=== PATIENT | male | born 1960 ===

== ENCOUNTER 2018-09-20 17:47 | Inpatient (IN) | payer MEDICAID, MEDICARE ==
[2018-09-20 17:48] VITALS: BMI 29.9
--- NOTE | 2018-09-20 19:28 | C.PDOC ---
History Of Present Illness 58 year old male presents to the ED c/o SOB, chest discomfort that has been on and off for the past 3 weeks. Patient states his chest pain is intermittent, dull, aching, non radiating. Patient states he called his checker/stocker today and was told to come to the ED for evaluation. Patient able to tolerate PO, speaking in complete sentences. Patient denies fever, chills, nausea, vomit, diarrhea, rash, weakness, numbness, headache. Time Seen by Provider: 09/20/18 19:28 Chief Complaint (Nursing): Shortness Of Breath History Per: Patient History/Exam Limitations: no limitations Onset/Duration Of Symptoms: Days, Intermittent Episodes Current Symptoms Are (Timing): Still Present Initiating Event: Upper Respiratory Illness Quality: Tightness Current Respiratory Medications: See Home Med List Severity: Moderate Pain Scale Rating Of: 4 Associated Symptoms: Chest Pain. denies: Fever, Chills Reports Recently: Treated By A Physician Recent travel outside of the [place]: No Additional History Per: Patient Past Medical History Reviewed: Historical Data, Nursing Documentation, Vital Signs Vital Signs: Last Vital Signs Temp 98.3 F 09/20/18 17:56 Pulse 84 09/20/18 18:51 Resp 20 09/20/18 18:51 BP 120/58 L 09/20/18 18:51 Pulse Ox 100 09/20/18 18:51 - Medical History PMH: Anemia, Depression, Diabetes, Gastritis, HTN, Hypercholesterolemia, Hyperlipidemia, Pneumonia Denies: Chronic Kidney Disease Surgical History: CABG (2003), Coronary Stent (2010), Endoscopy Family History: States: Unknown Family Hx - Social History Hx Tobacco Use: No Hx Alcohol Use: No Hx Substance Use: No - Immunization History Hx Tetanus Toxoid Vaccination: No Hx Influenza Vaccination: Yes Hx Pneumococcal Vaccination: Yes Review Of Systems Constitutional: Negative for: Fever, Chills Eyes: Negative for: Vision Change Cardiovascular: Positive for: Chest Pain. Negative for: Palpitations Respiratory: Positive for: Shortness of Breath. Negative for: Cough, Wheezing Gastrointestinal: Negative for: Nausea, Vomiting, Abdominal Pain, Diarrhea Genitourinary: Negative for: Dysuria Musculoskeletal: Negative for: Back Pain Skin: Negative for: Rash Neurological: Negative for: Weakness, Numbness, Headache, Dizziness Psych: Negative for: Anxiety Physical Exam - Physical Exam Appears: Non-toxic Skin: Warm, Dry Head: Normacephalic Eye(s): bilateral: Normal Inspection Oral Mucosa: Moist Neck: Supple Chest: Symmetrical, Other (CABG scar) Cardiovascular: Rhythm Regular Respiratory: Rales (at the bases), No Rhonchi, No Wheezing Gastrointestinal/Abdominal: Soft, No Tenderness, Distention, No Guarding, No Rebound, Other (tympanic to percussion) Back: Normal Inspection Extremity: No Tenderness, Capillary Refill (< 2 seconds) Extremity: Bilateral: Atraumatic, Normal Color And Temperature, Normal ROM, Other (pedal edema) Pulses: Left Dorsalis Pedis: Normal, Right Dorsalis Pedis: Normal Neurological/Psych: Oriented x3, Normal Speech, Normal Cognition Gait: Steady ED Course And Treatment - Laboratory Results Result Diagrams: 09/20/18 19:53 09/20/18 19:53 ECG: Interpreted By Me, Viewed By Me ECG Rhythm: Sinus Rhythm (85), ST/T Changes (lat ischemic changes) O2 Sat by Pulse Oximetry: 100 (ON RA) Pulse Ox Interpretation: Normal - Radiology CXR: Interpreted by Me, Viewed By Me CXR Interpretation: Yes: Infiltrates (rll), Cardiomegaly, Other (? l effusion) Progress Note: Plan: - ABG. - EKG. - Labs. - CXR. - Aspirin 325 mg PO. - Duoneb. - Influenza A B. - UA. spoke with dr figueroa montano with current treatment. will see in am Disposition Discussed With : Yoshi Carranza Comment: accepted the pt on his service and took over the care at 8:54 PM Doctor Will See Patient In The: ED Counseled Patient/Family Regarding: Studies Performed, Diagnosis - Disposition Disposition: HOSPITALIZED Disposition Time: 19:28 Condition: FAIR Forms: [email or web address] ([email or web address]) - Clinical Impression Clinical Impression: Dyspnea, Chest pain, CHF (congestive heart failure), Pneumonia - Scribe Statement The provider has reviewed the documentation as recorded by the Scribe Edil Rodriguez All medical record entries made by the Scribe were at my direction and personally dictated by me. I have reviewed the chart and agree that the record accurately reflects my personal performance of the history, physical exam, medical decision making, and the department course for this patient. I have also personally directed, reviewed, and agree with the discharge instructions and disposition. Decision To Admit - Pt Status Changed To: Hospital Disposition Of: Inpatient - Admit Certification Admit to Inpatient:: After my assessment, the patient will require hospitalization for at least two midnights. This is because of the severity of symptoms shown, intensity of services needed, and/or the medical risk in this patient being treated as an outpatient. - InPatient: Physician Admission Certification: I certify that this patient requires 2 or more midnights of care for the following reason:: After my assessment, the patient will require hospitalization for at least two midnights. This is because of the severity of symptoms shown, intensity of services needed, and/or the medical risk in this patient being treated as an outpatient. - . Bed Request Type: Telemetry Admitting Physician: Yoshi Carranza Patient Diagnosis: Dyspnea, Chest pain, CHF (congestive heart failure), Pneumonia
[2018-09-20] MEDS: Albuterol-Ipratrop 3 mg / 0.5 (3 ml) UD IH SCH ×3 (19:35→20:02)
[2018-09-20] MEDS ORDERED: Albuterol-Ipratrop 3 mg / 0.5 (3 ml) UD ONE (19:55)
[2018-09-20 20:02] LABS: BASO % 0.2 % (0.0-2.0); EOS % 0.2 % (0.0-4.0); HEMOGLOBIN 11.4 g/dL (12.0-18.0); LYMPH # 0.5 K/uL (1.0-4.3); LYMPH % 3.7 % (20.0-40.0); MEAN CORPUSCULAR HEMOGLOBIN 24.6 pg (27.0-31.0); MEAN CORPUSCULAR HGB CONC 31.6 g/dL (33.0-37.0); MEAN PLATELET VOLUME 8.4 fL (7.2-11.7); MONO # 0.8 K/uL (0.0-0.8); MONO % 6.2 % (0.0-10.0); NEUT # 11.7 K/uL (1.8-7.0); NEUT % 89.7 % (50.0-75.0); PLATELET COUNT 224 K/uL (130-400); RBC 4.62 Mil/uL (4.40-5.90); RED CELL DISTRIBUTION WIDTH 17.7 % (11.5-14.5)
[2018-09-20 20:04] LABS: MEAN CELL VOLUME 77.9 fL (80.0-94.0)
[2018-09-20 20:13] LABS: ALBUMIN 3.7 g/dL (3.5-5.0); ALT/SGPT 36 U/L (21-72); AST/SGOT 35 U/L (17-59); BLOOD UREA NITROGEN 19 mg/dL (9-20); CALCIUM 8.6 mg/dl (8.6-10.4); GFR NON-AFRICAN AMERICAN > 60
[2018-09-20 20:15] LABS: ABG ALLEN TEST YES; ARTERIAL BLOOD GAS HCO3 24.1 mmol/L (21-28); ARTERIAL BLOOD GAS O2 SAT 99.5 % (95-98); ARTERIAL BLOOD GAS PCO2 42 mm/Hg (35-45); ARTERIAL BLOOD GAS PH 7.37 (7.35-7.45); ARTERIAL BLOOD GAS PO2 146 mm/Hg (80-100); ARTERIAL BLOOD GAS TCO2 25.6 mmol/L (22-28)
[2018-09-20 20:18] LABS: INR 1.2; PROTHROMBIN TIME 13.6 SECONDS (9.7-12.2)
[2018-09-20] MEDS ORDERED: Piperacillin/Tazobact 3.375 gm 100 ML IVPB STA (20:20)
[2018-09-20 20:24] LABS: B-TYPE NATRIURETIC PEPTIDE 1570 pg/mL (0-900)
[2018-09-20] MEDS ORDERED: Piperacillin/Tazobact 3.375 gm 100 ML IVPB ONE (20:30)
[2018-09-20 20:57] LABS: BANDS 4 % (0-2); LYMPHOCYTE 5 % (20-40); MONOCYTE 2 % (0-10); NEUTROPHIL 89 % (50-75); TOTAL CELLS COUNTED 100
[2018-09-20 20:58] LABS: ANISOCYTOSIS SLIGHT; HYPOCHROMIC SLIGHT; MICROCYTOSIS SLIGHT; PLATELET ESTIMATE NORMAL (NORMAL); POIKILOCYTOSIS SLIGHT; TARGET CELLS SLIGHT
[2018-09-20] MEDS ORDERED: Iodixanol 320 MG/ML 100 ML BOTTLE IV ONE (21:18)
[2018-09-20 21:59] LABS: SQUAMOUS EPITHIAL < 1 /hpf (0-5); URINE BILIRUBIN NEGATIVE (NEGATIVE); URINE BLOOD NEGATIVE (NEGATIVE); URINE CLARITY Clear (Clear); URINE COLOR Yellow (YELLOW); URINE GLUCOSE (UA) 3+ mg/dL (Normal); URINE LEUKOCYTE ESTERASE NEG Leu/uL (Negative); URINE PROTEIN NEGATIVE (NEGATIVE); URINE UROBILINOGEN NORMAL mg/dL (0.2-1.0)
--- NOTE | 2018-09-20 23:53 | CP.PCM.HP ---
<Noe Bonilla - Last Filed: 09/21/18 04:38> History of Present Illness - History of Present Illness History of Present Illness: H&P note for Dr Carranza service cc: Shortness of breath HPI: Patient is a 58 year old [place] Male with pmhx of DM, PVD, Hyperlipidemia, angina, HTN, gastritis that came to the ED for shortness of breath that has been happening for the past 2-3 weeks. Patient was told by his stitch rubber to come to the ER. Patient is complianing of productive cough, with grayish phlegm for the past 3 days. Patient states having previous difficulting walking a block, but in the past 3 weeks it has gotten worst. Admits to achy, nonradiating chest pain. Patient complains of leg swelling and feeling dizziness at times. Patient denies fever, chills, nausea, vomit, diarrhea, constipation, rash, weakness or headaches. ALL: NKDA PMhx: as stated in HPI Shx: CABG (2003), Coronary Stent (2010) Fmhx: Heart disease ( several members) Sochx: denies smoking, alcohol or drug use. Retired. Present on Admission - Present on Admission Any Indicators Present on Admission: No Review of Systems - Review of Systems All systems: reviewed and no additional remarkable complaints except Review of Systems: as stated in HPI Past Patient History - Infectious Disease Hx of Infectious Diseases: None - Past Medical History & Family History Past Medical History?: Yes - Past Social History Smoking Status: Never Smoked - CARDIAC Hx Hypercholesterolemia: Yes Hx Hypertension: Yes - PULMONARY Hx Pneumonia: Yes - NEUROLOGICAL Hx Neurological Disorder: No - HEENT Hx HEENT Problems: No - RENAL Hx Chronic Kidney Disease: No - ENDOCRINE/METABOLIC Hx Endocrine Disorders: Yes Hx Diabetes Mellitus Type 2: Yes - HEMATOLOGICAL/ONCOLOGICAL Hx Anemia: Yes - INTEGUMENTARY Hx Dermatological Problems: No - MUSCULOSKELETAL/RHEUMATOLOGICAL Hx Musculoskeletal Disorders: No Hx Falls: No - GASTROINTESTINAL Hx Gastritis: Yes - GENITOURINARY/GYNECOLOGICAL Hx Genitourinary Disorders: No - PSYCHIATRIC Hx Depression: Yes Hx Substance Use: No - SURGICAL HISTORY Hx Coronary Artery Bypass Graft: Yes (2003) Hx Coronary Stent: Yes (2010) - ANESTHESIA Hx Anesthesia: Yes Hx Anesthesia Reactions: No Hx Malignant Hyperthermia: No Meds Allergies/Adverse Reactions: Allergies Allergy/AdvReac Type Severity Reaction Status Date / Time No Known Allergies Allergy Verified 08/17/16 19:40 Physical Exam - Constitutional Appears: Non-toxic, No Acute Distress - Head Exam Head Exam: ATRAUMATIC, NORMAL INSPECTION, NORMOCEPHALIC - Eye Exam Eye Exam: EOMI, Normal appearance Pupil Exam: NORMAL ACCOMODATION - ENT Exam ENT Exam: Mucous Membranes Moist, Normal Exam - Neck Exam Neck exam: Positive for: Normal Inspection - Respiratory Exam Respiratory Exam: Clear to Auscultation Bilateral, Respiratory Distress. absent: Wheezes Additional comments: Crackles auscultated bilaterally on lower lobes - Cardiovascular Exam Cardiovascular Exam: REGULAR RHYTHM, +S1, +S2 - GI/Abdominal Exam GI & Abdominal Exam: Distended, Normal Bowel Sounds, Soft. absent: Guarding, Tenderness - Extremities Exam Extremities exam: Positive for: full ROM, pedal edema, pedal pulses present. Negative for: tenderness Additional comments: Bilateral lower extremity 2+ pitting edema - Back Exam Back exam: FULL ROM, NORMAL INSPECTION. absent: paraspinal tenderness, tenderness - Neurological Exam Neurological exam: Alert, CN II-XII Intact, Oriented x3 - Psychiatric Exam Psychiatric exam: Normal Affect, Normal Mood - Skin Skin Exam: Dry, Intact, Normal Color, Warm Results - Vital Signs Recent Vital Signs: Last Vital Signs Temp 98.3 F 09/20/18 17:56 Pulse 80 09/20/18 23:45 Resp 22 09/20/18 23:45 BP 109/54 L 09/20/18 23:45 Pulse Ox 100 09/20/18 23:45 - Labs Result Diagrams: 09/20/18 19:53 09/20/18 19:53 Labs: Laboratory Results - last 24 hr 09/20/18 09/20/18 09/20/18 19:53 19:53 19:55 WBC 13.0 H D RBC 4.62 Hgb 11.4 L Hct 36.0 MCV 77.9 L D MCH 24.6 L MCHC 31.6 L RDW 17.7 H Plt Count 224 MPV 8.4 Neut % (Auto) 89.7 H Lymph % (Auto) 3.7 L [place] % (Auto) 6.2 Eos % (Auto) 0.2 Baso % (Auto) 0.2 Neut # (Auto) 11.7 H Lymph # (Auto) 0.5 L [place] # (Auto) 0.8 Eos # (Auto) 0.0 Baso # (Auto) 0.0 Neutrophils % (Manual) 89 H Band Neutrophils % 4 H Lymphocytes % (Manual) 5 L Monocytes % (Manual) 2 Platelet Estimate Normal Hypochromasia (manual) Slight Poikilocytosis (manual Slight Anisocytosis (manual) Slight Microcytosis (manual) Slight Target Cells Slight PT INR APTT Puncture Site Rr pCO2 42 pO2 146 H HCO3 24.1 ABG pH 7.37 ABG Total CO2 25.6 ABG O2 Saturation 99.5 H ABG Base Excess -1.1 Tom Test Yes ABG Potassium 4.2 Glucose 129 H Lactate 0.8 Sodium 129 L 132.0 Potassium 4.9 Chloride 95 L 103.0 Carbon Dioxide 26 Anion Gap 14 BUN 19 Creatinine 0.7 L Est GFR ( Amer) > 60 Est GFR (Non-Af Amer) > 60 Random Glucose 140 H Calcium 8.6 Magnesium 1.9 Total Bilirubin 1.2 AST 35 ALT 36 Alkaline Phosphatase 112 Troponin I < 0.0120 NT-Pro-B Natriuret Pep 1570 H Total Protein 7.2 Albumin 3.7 Globulin 3.5 Albumin/Globulin Ratio 1.0 Arterial Blood Potassium 4.2 Urine Color Urine Clarity Urine pH Ur Specific [place] Urine Protein Urine Glucose (UA) Urine Ketones Urine Blood Urine Nitrate Urine Bilirubin Urine Urobilinogen Ur Leukocyte Esterase Urine WBC (Auto) Urine RBC (Auto) Ur Squamous Epith Cells Influenza Typ A,B (EIA) 09/20/18 09/20/18 09/20/18 19:59 20:02 21:40 WBC RBC Hgb Hct MCV MCH MCHC RDW Plt Count MPV Neut % (Auto) Lymph % (Auto) [place] % (Auto) Eos % (Auto) Baso % (Auto) Neut # (Auto) Lymph # (Auto) [place] # (Auto) Eos # (Auto) Baso # (Auto) Neutrophils % (Manual) Band Neutrophils % Lymphocytes % (Manual) Monocytes % (Manual) Platelet Estimate Hypochromasia (manual) Poikilocytosis (manual Anisocytosis (manual) Microcytosis (manual) Target Cells PT 13.6 H INR 1.2 APTT 35 H Puncture Site pCO2 pO2 HCO3 ABG pH ABG Total CO2 ABG O2 Saturation ABG Base Excess Tom Test ABG Potassium Glucose Lactate Sodium Potassium Chloride Carbon Dioxide Anion Gap BUN Creatinine Est GFR ( Amer) Est GFR (Non-Af Amer) Random Glucose Calcium Magnesium Total Bilirubin AST ALT Alkaline Phosphatase Troponin I NT-Pro-B Natriuret Pep Total Protein Albumin Globulin Albumin/Globulin Ratio Arterial Blood Potassium Urine Color Yellow Urine Clarity Clear Urine pH 6.0 Ur Specific [place] 1.017 Urine Protein Negative Urine Glucose (UA) 3+ H Urine Ketones Negative Urine Blood Negative Urine Nitrate Negative Urine Bilirubin Negative Urine Urobilinogen Normal Ur Leukocyte Esterase Neg Urine WBC (Auto) < 1 Urine RBC (Auto) 1 Ur Squamous Epith Cells < 1 Influenza Typ A,B (EIA) Negative for flu a/b Assessment & Plan - Assessment and Plan (Free Text) Plan: Multifocal Pneumonia - CT: No PE, severe cardiomegaly, diffuse majort coronary calcifications, venous congestion changes, Rt Heart failure, multifocal PNA - Zosyn given in ED - Rocephin 1gm IVPB QD - Doxycline 100mg PO BID - Blood cultures - f/u - CBC, CMP in the am hx of DM - accuchecks - HbA1C - f/u hx of CHF: - Lasix 20mg IVP given in the ED - Cardiology consult - Dr Yan hx of HTN - monitor vitals - home meds: - Losartan 25mg PO QD - Metoprolol 25mg PO QD Hx of HLPD - Crestor 5mg PO QHS HX of Stent placement - cardiology consult - Dr Yan - help is appreciated - ASA 81mg PO daily Prophylaxis - DVT: heparin 5000 sc Q12H - Protonix 40mg IVP QD - Diet HHD low CHO Plan discussed with Dr Dillon Bonilla - Date & Time Date: 09/20/18 Time: 21:00 <Yoshi Carranza P - Last Filed: 09/21/18 07:05> Results - Vital Signs Recent Vital Signs: Last Vital Signs Temp 98 F 09/21/18 00:52 Pulse 76 09/21/18 00:52 Resp 20 09/21/18 00:52 BP 119/74 09/21/18 00:52 Pulse Ox 100 09/21/18 00:52 - Labs Result Diagrams: 09/21/18 06:40 09/20/18 19:53 Labs: Laboratory Results - last 24 hr 09/20/18 09/20/18 09/20/18 19:53 19:53 19:55 WBC 13.0 H D RBC 4.62 Hgb 11.4 L Hct 36.0 MCV 77.9 L D MCH 24.6 L MCHC 31.6 L RDW 17.7 H Plt Count 224 MPV 8.4 Neut % (Auto) 89.7 H Lymph % (Auto) 3.7 L [place] % (Auto) 6.2 Eos % (Auto) 0.2 Baso % (Auto) 0.2 Neut # (Auto) 11.7 H Lymph # (Auto) 0.5 L [place] # (Auto) 0.8 Eos # (Auto) 0.0 Baso # (Auto) 0.0 Neutrophils % (Manual) 89 H Band Neutrophils % 4 H Lymphocytes % (Manual) 5 L Monocytes % (Manual) 2 Platelet Estimate Normal Hypochromasia (manual) Slight Poikilocytosis (manual Slight Anisocytosis (manual) Slight Microcytosis (manual) Slight Target Cells Slight PT INR APTT Puncture Site Rr pCO2 42 pO2 146 H HCO3 24.1 ABG pH 7.37 ABG Total CO2 25.6 ABG O2 Saturation 99.5 H ABG Base Excess -1.1 Tom Test Yes ABG Potassium 4.2 Glucose 129 H Lactate 0.8 Sodium 129 L 132.0 Potassium 4.9 Chloride 95 L 103.0 Carbon Dioxide 26 Anion Gap 14 BUN 19 Creatinine 0.7 L Est GFR ( Amer) > 60 Est GFR (Non-Af Amer) > 60 POC Glucose (mg/dL) Random Glucose 140 H Calcium 8.6 Magnesium 1.9 Total Bilirubin 1.2 AST 35 ALT 36 Alkaline Phosphatase 112 Troponin I < 0.0120 NT-Pro-B Natriuret Pep 1570 H Total Protein 7.2 Albumin 3.7 Globulin 3.5 Albumin/Globulin Ratio 1.0 Arterial Blood Potassium 4.2 Urine Color Urine Clarity Urine pH Ur Specific [place] Urine Protein Urine Glucose (UA) Urine Ketones Urine Blood Urine Nitrate Urine Bilirubin Urine Urobilinogen Ur Leukocyte Esterase Urine WBC (Auto) Urine RBC (Auto) Ur Squamous Epith Cells Influenza Typ A,B (EIA) 09/20/18 09/20/18 09/20/18 19:59 20:02 21:40 WBC RBC Hgb Hct MCV MCH MCHC RDW Plt Count MPV Neut % (Auto) Lymph % (Auto) [place] % (Auto) Eos % (Auto) Baso % (Auto) Neut # (Auto) Lymph # (Auto) [place] # (Auto) Eos # (Auto) Baso # (Auto) Neutrophils % (Manual) Band Neutrophils % Lymphocytes % (Manual) Monocytes % (Manual) Platelet Estimate Hypochromasia (manual) Poikilocytosis (manual Anisocytosis (manual) Microcytosis (manual) Target Cells PT 13.6 H INR 1.2 APTT 35 H Puncture Site pCO2 pO2 HCO3 ABG pH ABG Total CO2 ABG O2 Saturation ABG Base Excess Tom Test ABG Potassium Glucose Lactate Sodium Potassium Chloride Carbon Dioxide Anion Gap BUN Creatinine Est GFR ( Amer) Est GFR (Non-Af Amer) POC Glucose (mg/dL) Random Glucose Calcium Magnesium Total Bilirubin AST ALT Alkaline Phosphatase Troponin I NT-Pro-B Natriuret Pep Total Protein Albumin Globulin Albumin/Globulin Ratio Arterial Blood Potassium Urine Color Yellow Urine Clarity Clear Urine pH 6.0 Ur Specific [place] 1.017 Urine Protein Negative Urine Glucose (UA) 3+ H Urine Ketones Negative Urine Blood Negative Urine Nitrate Negative Urine Bilirubin Negative Urine Urobilinogen Normal Ur Leukocyte Esterase Neg Urine WBC (Auto) < 1 Urine RBC (Auto) 1 Ur Squamous Epith Cells < 1 Influenza Typ A,B (EIA) Negative for flu a/b 09/21/18 09/21/18 09/21/18 00:04 06:17 06:40 WBC 11.4 H RBC 4.65 Hgb 11.5 L Hct 35.7 MCV 76.8 L MCH 24.6 L MCHC 32.1 L RDW 17.7 H Plt Count 220 MPV 8.3 Neut % (Auto) 74.7 Lymph % (Auto) 14.7 L [place] % (Auto) 9.6 Eos % (Auto) 0.6 Baso % (Auto) 0.4 Neut # (Auto) 8.5 H Lymph # (Auto) 1.7 [place] # (Auto) 1.1 H Eos # (Auto) 0.1 Baso # (Auto) 0.0 Neutrophils % (Manual) Band Neutrophils % Lymphocytes % (Manual) Monocytes % (Manual) Platelet Estimate Hypochromasia (manual) Poikilocytosis (manual Anisocytosis (manual) Microcytosis (manual) Target Cells PT INR APTT Puncture Site pCO2 pO2 HCO3 ABG pH ABG Total CO2 ABG O2 Saturation ABG Base Excess Tom Test ABG Potassium Glucose Lactate Sodium Potassium Chloride Carbon Dioxide Anion Gap BUN Creatinine Est GFR ( Amer) Est GFR (Non-Af Amer) POC Glucose (mg/dL) 195 H 90 Random Glucose Calcium Magnesium Total Bilirubin AST ALT Alkaline Phosphatase Troponin I NT-Pro-B Natriuret Pep Total Protein Albumin Globulin Albumin/Globulin Ratio Arterial Blood Potassium Urine Color Urine Clarity Urine pH Ur Specific [place] Urine Protein Urine Glucose (UA) Urine Ketones Urine Blood Urine Nitrate Urine Bilirubin Urine Urobilinogen Ur Leukocyte Esterase Urine WBC (Auto) Urine RBC (Auto) Ur Squamous Epith Cells Influenza Typ A,B (EIA) Attending/Attestation - Attestation I have personally seen and examined this patient.: Yes I have fully participated in the care of the patient.: Yes I have reviewed all pertinent clinical information: Yes Notes (Text): 09/21/18 07:02 * Multilobar b/l pna * Worsening sob * Chronic SOB from CAD on ranexa * S/p CABG 2003, multiple stent post, last one approximately 4 yrs back * H/o NIDDM * HTN * PVD Plan * Rocephin and doxicycline * Home meds * Consult cardiology * Maintain Euglycemia * GI/DVT prophylaxis * See orders for detail.
[2018-09-20] MEDS ORDERED: cefTRIAXone 1 gm 1 GM/100 ML BAG IVPB ONE (23:55)
[2018-09-21 06:50] LABS: BASO % 0.4 % (0.0-2.0); EOS # 0.1 K/uL (0.0-0.7); EOS % 0.6 % (0.0-4.0); HEMOGLOBIN 11.5 g/dL (12.0-18.0); LYMPH # 1.7 K/uL (1.0-4.3); LYMPH % 14.7 % (20.0-40.0); MEAN CELL VOLUME 76.8 fL (80.0-94.0); MEAN CORPUSCULAR HEMOGLOBIN 24.6 pg (27.0-31.0); MEAN CORPUSCULAR HGB CONC 32.1 g/dL (33.0-37.0); MEAN PLATELET VOLUME 8.3 fL (7.2-11.7); MONO # 1.1 K/uL (0.0-0.8); MONO % 9.6 % (0.0-10.0); NEUT # 8.5 K/uL (1.8-7.0); NEUT % 74.7 % (50.0-75.0); NRBC % 0.1 % (0.0-2.0); RBC 4.65 Mil/uL (4.40-5.90); RED CELL DISTRIBUTION WIDTH 17.7 % (11.5-14.5); WHITE BLOOD COUNT 11.4 K/uL (4.8-10.8)
[2018-09-21 07:33] LABS: ALBUMIN 3.5 g/dL (3.5-5.0); ALT/SGPT 31 U/L (21-72); AST/SGOT 32 U/L (17-59); BLOOD UREA NITROGEN 19 mg/dL (9-20); CALCIUM 8.8 mg/dl (8.6-10.4); GFR NON-AFRICAN AMERICAN > 60
[2018-09-21] MEDS ORDERED: ACARBOSE PO SCH (10:00)
--- NOTE | 2018-09-21 10:06 | RAD ---
Chest x-ray single frontal view History: Shortness of breath. Comparison: 09/23/2017 Findings: Moderate to severe venous congestion. Patchy bibasilar airspace consolidative changes. Small right and moderate left pleural effusion. Status post median sternotomy and CABG. Enlarged ectatic aorta. Cardiomegaly. Degenerative changes in the spine and shoulders. Impression : Moderate to severe venous congestion. Patchy bibasilar airspace consolidative changes. Small right and moderate left pleural effusion. Status post median sternotomy and CABG. Enlarged ectatic aorta. Cardiomegaly.
[2018-09-21] MEDS: Ranolazine 500 mg Extended Release Tablets PO SCH ×2 (10:30→17:42)
[2018-09-21] MEDS: Metoprolol Succinate 25 mg XL Tab PO SCH (10:30)
--- NOTE | 2018-09-21 10:52 | CARD ---
APPROVED REPORT Date of service: 09/20/2018 EKG Measurement Heart [id number] <Conclusion> Normal sinus rhythm ST & T wave abnormality, consider inferolateral ischemia Abnormal ECG
[2018-09-21] MEDS: Cilostazol 50 mg Tab UD PO SCH (10:57)
--- NOTE | 2018-09-21 13:10 | CT ---
Date of service: 09/20/2018 PROCEDURE: CT Chest with contrast (Pulmonary Angiogram) HISTORY: SOB COMPARISON: Comparison made with prior CT scan of the chest dated 11/17/2015.. TECHNIQUE: Axial computed tomography images were obtained of the chest in the pulmonary arterial phase of enhancement. Coronal and sagittal reformatted images were created and reviewed. Intravenous contrast dose: 100 cc Visipaque 320 Radiation dose: Total exam DLP = 541.87 mGy-cm. This CT exam was performed using one or more of the following dose reduction techniques: Automated exposure control, adjustment of the mA and/or kV according to patient size, and/or use of iterative reconstruction technique. FINDINGS: Note that the examination is slightly limited due to streak and beam hardening artifact arising from the left upper extremity which has not been moved from the field of view. PULMONARY ARTERIES: The visualized pulmonary trunk, right and left main, of lobar and segmental branches are well opacified with no definitive filling defects seen to suggest acute central pulmonary embolus. The subsegmental branches are less well delineated on this exam though no large proximal filling defects are identified. Pulmonary trunk measures approximate 2.9 cm. AORTA: The heart appears mildly enlarged. No significant pericardial effusion. . No thoracic aortic aneurysm. Ascending thoracic aorta measures approximately 3.3 cm and descending thoracic aorta measures approximately 2.2 cm. mild aortic atherosclerotic calcification or mural plaque present.. LUNGS: Unremarkable. No nodule, mass or pulmonary consolidation there are patchy bilateral infiltrate and atelectatic changes changes seen in both posterior lower lung granda with smaller infiltrate changes seen in the right upper lobe. Questionable trace effusions. PLEURAL SPACES: . Questionable trace bilateral effusions. No evidence of pneumothorax HEART: Sternotomy wires again noted.. No cardiomegaly. No significant pericardial effusion. LYMPH NODES: Few small nonspecific mediastinal lymph nodes are present the largest in the prevascular space measuring approximately 12.5 mm. Trachea midline and patent with no large central endoluminal lesions. There is a small hiatal hernia with slight wall thickening of the distal esophagus likely due to protrusion of gastric mucosa. Possibility of esophagitis not excluded. BONES, CHEST WALL: Mild multilevel degenerative spondylosis of the thoracic spine. There are no acute compression fractures no retropulsed fragments. OTHER FINDINGS: Unremarkable. IMPRESSION: Slightly limited study to assess for of pulmonary emboli however there are no large central pulmonary emboli seen.. Cardiomegaly. Patchy bilateral on infiltrates and atelectatic changes both lower lung granda.
--- NOTE | 2018-09-21 14:27 | CT ---
Date of service: 09/21/2018 PROCEDURE: CT Abdomen and Pelvis. HISTORY: Rule out ascites; history of CHF. COMPARISON: Correlation made with CTA of the chest obtained 09/20/2018. Comparison also made with prior CT scan of the abdomen pelvis 11/08/2017. TECHNIQUE: Contiguous axial images of the abdomen and pelvis performed without oral or intravenous contrast material additional 2D sagittal and coronal reformats generated. Radiation dose: Total exam DLP = 1101.99 mGy-cm. This CT exam was performed using one or more of the following dose reduction techniques: Automated exposure control, adjustment of the mA and/or kV according to patient size, and/or use of iterative reconstruction technique. FINDINGS: LOWER THORAX: Heart remains enlarged. No significant pericardial effusion. Patchy bilateral lower lobe infiltrates and atelectasis. Questionable trace effusions. LIVER: Liver exhibits relatively normal size measuring approximately 12 cm in CC dimension. No obvious hepatic masses or collections.. GALLBLADDER AND BILE DUCTS: Gallbladder is physiologically distended. No evidence of intraluminal gallbladder calculi.. PANCREAS: The pancreas appears atrophic and fatty replaced. No obvious pancreatic masses, collections or calcifications. No significant ductal dilatation. . SPLEEN: Unremarkable. No splenomegaly. ADRENALS: There are no adrenal lesions.. KIDNEYS AND URETERS: Kidneys demonstrate relatively symmetric size. No evidence of nephrolithiasis or hydronephrosis. Some minor infiltration changes seen in the perinephric fat bilaterally nonspecific.. BLADDER: Urinary bladder is physiologically distended. No evidence of intraluminal urinary bladder calculi.. REPRODUCTIVE: Prostate gland measures approximately 3.1 cm. APPENDIX: Unremarkable. BOWEL: Evaluation of the bowel is limited due to the lack of oral contrast material. The stomach is incompletely distended. Visualized loops of small bowel exhibit normal contour and caliber. No evidence of acute mechanical small bowel obstruction. Moderate amount of stool is present within the large bowel suggesting mild fecal retention however no evidence of definitive mural wall thickening. There are a few scattered colonic diverticula however no radiographic evidence of acute diverticulitis. PERITONEUM: Unremarkable. No free fluid. No free air. Small fat containing umbilical hernia. Small bilateral fat containing inguinal hernias.. Note made of some vague localized infiltration changes within the left parasagittal subcutaneous fat lower abdomen/upper pelvis region with cough few tiny bubbles of air likely related to recent subcutaneous injection. LYMPH NODES: Unremarkable. No enlarged lymph nodes. VASCULATURE: Unremarkable. No aortic aneurysm. No aortic atherosclerotic calcification or mural plaque present. BONES: Minor multilevel degenerative spondylosis of the lower thoracic and lumbar spine. OTHER FINDINGS: None. IMPRESSION: No acute intra abdominal pathology. No evidence of abdominal ascites. Few scattered colonic diverticula without radiographic evidence of acute diverticulitis. Small fat containing umbilical hernia and small bilateral fat containing inguinal hernias. Patchy bilateral lower lobe infiltrates and atelectasis.
[2018-09-21] MEDS ORDERED: Glucagon Recombinant 1 mg Inj IM PRN (15:30)
[2018-09-21] MEDS ORDERED: Dextrose 50% SYRINGE Inj (50 ml) IV PRN (15:30)
--- NOTE | 2018-09-21 15:57 | CP.PCM.PN ---
<Jeramie Yadav - Last Filed: 09/21/18 15:57> Subjective - Date & Time of Evaluation Date of Evaluation: 09/21/18 Time of Evaluation: 11:00 - Subjective Subjective: Pgy [address] Perdue's service Patient seen and examined at bedside. Patient reports chronic chest pain unchanged from yesterday. Patient admits to cough with yellow-green sputum. Patient admits of sob. Patient denies fevers, chills, nausea, vomiting, diarrhea, constipation, and pedal edema. Objective - Vital Signs/Intake and Output Vital Signs (last 24 hours): Temp Pulse Resp BP Pulse Ox 98.4 F 78 20 121/76 95 09/21/18 07:00 09/21/18 07:00 09/21/18 07:00 09/21/18 10:57 09/21/18 07:00 Intake and Output: 09/21/18 09/21/18 06:59 18:59 Output Total 500 Balance -500 - Medications Medications: Current Medications Aspirin (Ecotrin) 81 mg PO DAILY [facility] Last Admin: 09/21/18 10:30 Dose: 81 mg Cilostazol (Pletal) 50 mg PO DAILY [facility] Last Admin: 09/21/18 10:57 Dose: 50 mg Dextrose (Dextrose 50% Inj) 0 ml IV STAT PRN; Protocol PRN Reason: Hypoglycemia Protocol Dextrose (Glutose 15) 0 gm PO ONCE PRN; Protocol PRN Reason: Hypoglycemia Protocol Doxycycline Hyclate (Doryx) 100 mg PO Q12H [facility]; Protocol Last Admin: 09/21/18 12:37 Dose: 100 mg Duloxetine HCl (Cymbalta) 60 mg PO Q24H [facility] Last Admin: 09/21/18 12:37 Dose: 60 mg Furosemide (Lasix) 20 mg IVP DAILY [facility] Last Admin: 09/21/18 10:57 Dose: 20 mg Glucagon (Glucagen Diagnostic Kit) 0 mg IM STAT PRN; Protocol PRN Reason: Hypoglycemia Protocol Heparin Sodium (Porcine) (Heparin) 5,000 units SC Q12 [facility] Last Admin: 09/21/18 11:13 Dose: 5,000 units Home Med (Acarbose [Acarbose]) 1 tab PO DAILY [facility] Ceftriaxone Sodium 1 gm/ (Sodium Chloride) 100 mls @ 100 mls/hr IVPB Q24H [facility]EN; Protocol Last Admin: 09/20/18 23:50 Dose: 100 mls/hr Dextrose (Dextrose 5% In Water 1000 Ml) 1,000 mls @ 0 mls/hr IV .Q0M PRN; Protocol PRN Reason: Hypoglycemia Protocol Insulin Human Regular (Novolin R) 0 unit SC ACHS [facility]; Protocol Losartan Potassium (Cozaar) 25 mg PO DAILY [facility] Last Admin: 09/21/18 10:30 Dose: 25 mg Metoprolol Succinate (Toprol Xl) 25 mg PO DAILY [facility] Last Admin: 09/21/18 10:30 Dose: 25 mg Ranolazine (Ranexa) 1,000 mg PO BID [facility] Last Admin: 09/21/18 10:30 Dose: 1,000 mg - Labs Labs: 09/21/18 06:40 09/21/18 06:40 PT 13.6 SECONDS (9.7-12.2) H 09/20/18 20:02 INR 1.2 09/20/18 20:02 APTT 35 SECONDS (21-34) H 09/20/18 20:02 - Constitutional Appears: Non-toxic, No Acute Distress - Head Exam Head Exam: NORMAL INSPECTION, NORMOCEPHALIC - Eye Exam Eye Exam: EOMI, Normal appearance, PERRL. absent: Nystagmus, Scleral icterus - Respiratory Exam Respiratory Exam: Clear to Ausculation Bilateral, NORMAL BREATHING PATTERN. absent: Accessory Muscle Use, Chest Wall Tenderness, Decreased Breath Sounds, Prolonged Expiratory Phase, Rales, Rhonchi, Wheezes, Respiratory Distress, Stridor - Cardiovascular Exam Cardiovascular Exam: REGULAR RHYTHM, +S1, +S2. absent: Bradycardia, Tachycardia, Murmur - GI/Abdominal Exam GI & Abdominal Exam: Distended, Soft, Normal Bowel Sounds. absent: Firm, Guarding, Rigid, Tenderness - Extremities Exam Extremities Exam: absent: Calf Tenderness, Pedal Edema, Tenderness - Back Exam Back Exam: NORMAL INSPECTION. absent: rash noted - Neurological Exam Neurological Exam: Alert, Awake, Oriented x3 - Psychiatric Exam Psychiatric exam: Normal Affect, Normal Mood - Skin Skin Exam: Intact, Normal Color Assessment and Plan - Assessment and Plan (Free Text) Assessment: Patient is a 58 male With a PMHx of Dm, PVD, HLD, angina, HTN, and gastritis who presented to the ED for SOB occurring for 2-3 wks. Patient was referred by his Stroke Coordinator to come to the ED. Chest xray showed cardiomegaly and bilateral infiltrates. Chest Ct was ordered which showed patchy bilateral lower lobe infiltrates and atelectasis. Ct abd/pelvis was ordered for distended abdomen. CT abd/pevlis showed no acute intra abdominal pathology and no ascites. Plan: Multifocal Pneumonia Chest xray- shows venous congestion, and patchy bibasilar airspace consolidative changes. CT chest: No PE, severe cardiomegaly, diffuse major coronary calcifications, venous congestion changes, Rt Heart failure, multifocal PNA CT abdomen pelvis: no acute abdominal pathology; bilateral patchy infiltrates and atelectasis; 2 inguinal and 1 umbilical hernia Rocephin 1gm IVPB QD Doxycline 100mg PO BID Blood cultures are pending; Pna studies pending; sputum cx pending WBC is tending down from 13.0 to 11.4. Hbg is stable. DM2 ISS; hypoglycemic protocol; ACHS Duloxetine 60mg po q24 jaren Hyponatremia Resolved after lasix Hx of CHF Cardio consulted: Dr. Yan- recommendations appreciated On admission: BNP 1570 Lasix 20mg IVP daily jaren HTN Losartan 25mg PO QD Metoprolol 25mg PO QD PAD Cilostazol 50mg po daily Hx of CABG Cardio consulted: Dr. Yan recommendations appreciated ASA 81mg PO daily Prophylaxis DVT: heparin 5000 sc Q12H GI: Protonix 40mg po hs Diet HHD low CHO <Perdue,Peter H - Last Filed: 09/21/18 16:56> Objective - Vital Signs/Intake and Output Vital Signs (last 24 hours): Temp Pulse Resp BP Pulse Ox 98.2 F 76 20 99/60 L 99 09/21/18 16:45 09/21/18 16:45 09/21/18 16:45 09/21/18 16:45 09/21/18 16:45 Intake and Output: 09/21/18 09/21/18 06:59 18:59 Output Total 500 Balance -500 - Medications Medications: Current Medications Aspirin (Ecotrin) 81 mg PO DAILY [facility] Last Admin: 09/21/18 10:30 Dose: 81 mg Cilostazol (Pletal) 50 mg PO DAILY [facility] Last Admin: 09/21/18 10:57 Dose: 50 mg Dextrose (Dextrose 50% Inj) 0 ml IV STAT PRN; Protocol PRN Reason: Hypoglycemia Protocol Dextrose (Glutose 15) 0 gm PO ONCE PRN; Protocol PRN Reason: Hypoglycemia Protocol Doxycycline Hyclate (Doryx) 100 mg PO Q12H [facility]; Protocol Last Admin: 09/21/18 12:37 Dose: 100 mg Duloxetine HCl (Cymbalta) 60 mg PO Q24H [facility] Last Admin: 09/21/18 12:37 Dose: 60 mg Furosemide (Lasix) 20 mg IVP DAILY [facility] Last Admin: 09/21/18 10:57 Dose: 20 mg Glucagon (Glucagen Diagnostic Kit) 0 mg IM STAT PRN; Protocol PRN Reason: Hypoglycemia Protocol Heparin Sodium (Porcine) (Heparin) 5,000 units SC Q12 [facility] Last Admin: 09/21/18 11:13 Dose: 5,000 units Ceftriaxone Sodium 1 gm/ (Sodium Chloride) 100 mls @ 100 mls/hr IVPB Q24H [facility]; Protocol Last Admin: 09/20/18 23:50 Dose: 100 mls/hr Dextrose (Dextrose 5% In Water 1000 Ml) 1,000 mls @ 0 mls/hr IV .Q0M PRN; Protocol PRN Reason: Hypoglycemia Protocol Insulin Human Regular (Novolin R) 0 unit SC ACHS [facility]; Protocol Losartan Potassium (Cozaar) 25 mg PO DAILY [facility] Last Admin: 09/21/18 10:30 Dose: 25 mg Metoprolol Succinate (Toprol Xl) 25 mg PO DAILY [facility] Last Admin: 09/21/18 10:30 Dose: 25 mg Pantoprazole Sodium (Protonix Ec Tab) 40 mg PO DAILY [facility] Ranolazine (Ranexa) 1,000 mg PO BID [facility] Last Admin: 09/21/18 10:30 Dose: 1,000 mg - Labs Labs: 09/21/18 06:40 09/21/18 06:40 PT 13.6 SECONDS (9.7-12.2) H 09/20/18 20:02 INR 1.2 09/20/18 20:02 APTT 35 SECONDS (21-34) H 09/20/18 20:02 Attending/Attestation - Attestation I have personally seen and examined this patient.: Yes I have fully participated in the care of the patient.: Yes I have reviewed all pertinent clinical information, including history, physical exam and plan: Yes Notes (Text): 09/21/18 16:47 Medical attending: Patient was seen and examined by me. Agree with the above note by the resident The patient was not in any acute distress at this time. The patient was observed to be laying flat on the bed when we walked into the room to see him - he reported not being short of breath and not having cough when laying flat. He looked comfortable breathing - he said he felt much better overnight. There was some concern the patient could have been fluid overload given his history of CHF and he was administered lasix overnight. The overnight team were concerned about potential PNA and CT was ordered showing infiltrates bilaterally and abx started. We are pending cultures at this time. Also check sputum cultures too Pending cardiology evaluation as the patient has an extensive cardiac history with multiple stents done in the past thank you Quinn Perdue
[2018-09-21] MEDS: (Novolin R) Insulin Human Regular 100 units/ml vial SC SCH ×2 (16:51→22:02)
[2018-09-21] MEDS: Pantoprazole 40 mg EC Tab PO SCH (17:42)
--- NOTE | 2018-09-22 06:04 | CP.PCM.CON ---
History of Present Illness - History of Present Illness History of Present Illness: 58 M with hx of CAD Chronic angina on medical management Trops negative Prior stress tests nromal Normal EF Diastolic CHF Medical management for CAD Add Crestor 5mg po QHS No additional cardiac work up needed D/C Lasix once breathing improves Past Patient History - Infectious Disease Hx of Infectious Diseases: None - Past Medical History & Family History Past Medical History?: Yes - Past Social History Smoking Status: Never Smoked - CARDIAC Hx Hypercholesterolemia: Yes Hx Hypertension: Yes - PULMONARY Hx Pneumonia: Yes - NEUROLOGICAL Hx Neurological Disorder: No - HEENT Hx HEENT Problems: No - RENAL Hx Chronic Kidney Disease: No - ENDOCRINE/METABOLIC Hx Endocrine Disorders: Yes Hx Diabetes Mellitus Type 2: Yes - HEMATOLOGICAL/ONCOLOGICAL Hx Anemia: Yes - INTEGUMENTARY Hx Dermatological Problems: No - MUSCULOSKELETAL/RHEUMATOLOGICAL Hx Musculoskeletal Disorders: No Hx Falls: No - GASTROINTESTINAL Hx Gastritis: Yes - GENITOURINARY/GYNECOLOGICAL Hx Genitourinary Disorders: No - PSYCHIATRIC Hx Depression: Yes Hx Substance Use: No - SURGICAL HISTORY Hx Coronary Artery Bypass Graft: Yes (2003) Hx Coronary Stent: Yes (2010) - ANESTHESIA Hx Anesthesia: Yes Hx Anesthesia Reactions: No Hx Malignant Hyperthermia: No Meds Allergies/Adverse Reactions: Allergies Allergy/AdvReac Type Severity Reaction Status Date / Time No Known Allergies Allergy Verified 08/17/16 19:40 - Medications Medications: Current Medications Aspirin (Ecotrin) 81 mg PO DAILY [facility] Last Admin: 09/21/18 10:30 Dose: 81 mg Cilostazol (Pletal) 50 mg PO DAILY [facility] Last Admin: 09/21/18 10:57 Dose: 50 mg Dextrose (Dextrose 50% Inj) 0 ml IV STAT PRN; Protocol PRN Reason: Hypoglycemia Protocol Dextrose (Glutose 15) 0 gm PO ONCE PRN; Protocol PRN Reason: Hypoglycemia Protocol Doxycycline Hyclate (Doryx) 100 mg PO Q12H [facility]; Protocol Last Admin: 09/21/18 22:45 Dose: Not Given Duloxetine HCl (Cymbalta) 60 mg PO Q24H [facility] Last Admin: 09/21/18 12:37 Dose: 60 mg Furosemide (Lasix) 20 mg IVP DAILY [facility] Last Admin: 09/21/18 10:57 Dose: 20 mg Glucagon (Glucagen Diagnostic Kit) 0 mg IM STAT PRN; Protocol PRN Reason: Hypoglycemia Protocol Heparin Sodium (Porcine) (Heparin) 5,000 units SC Q12 [facility] Last Admin: 09/21/18 22:10 Dose: 5,000 units Ceftriaxone Sodium 1 gm/ (Sodium Chloride) 100 mls @ 100 mls/hr IVPB Q24H [facility]; Protocol Last Admin: 09/21/18 22:45 Dose: Not Given Dextrose (Dextrose 5% In Water 1000 Ml) 1,000 mls @ 0 mls/hr IV .Q0M PRN; Protocol PRN Reason: Hypoglycemia Protocol Insulin Human Regular (Novolin R) 0 unit SC ACHS [facility]; Protocol Last Admin: 09/21/18 22:02 Dose: Not Given Losartan Potassium (Cozaar) 25 mg PO DAILY [facility] Last Admin: 09/21/18 10:30 Dose: 25 mg Metoprolol Succinate (Toprol Xl) 25 mg PO DAILY [facility] Last Admin: 09/21/18 10:30 Dose: 25 mg Pantoprazole Sodium (Protonix Ec Tab) 40 mg PO DAILY [facility] Last Admin: 09/21/18 17:42 Dose: 40 mg Ranolazine (Ranexa) 1,000 mg PO BID [facility] Last Admin: 09/21/18 17:42 Dose: 1,000 mg Results - Vital Signs Recent Vital Signs: Last Vital Signs Temp 98.3 F 09/22/18 00:00 Pulse 80 09/22/18 01:25 Resp 20 09/22/18 00:00 BP 110/56 L 09/22/18 00:00 Pulse Ox 98 09/22/18 00:00 - Labs Result Diagrams: 09/21/18 06:40 09/21/18 06:40 Labs: Laboratory Results - last 24 hr 09/21/18 09/21/18 09/21/18 06:17 06:40 06:40 WBC 11.4 H RBC 4.65 Hgb 11.5 L Hct 35.7 MCV 76.8 L MCH 24.6 L MCHC 32.1 L RDW 17.7 H Plt Count 220 MPV 8.3 Neut % (Auto) 74.7 Lymph % (Auto) 14.7 L [place] % (Auto) 9.6 Eos % (Auto) 0.6 Baso % (Auto) 0.4 Neut # (Auto) 8.5 H Lymph # (Auto) 1.7 [place] # (Auto) 1.1 H Eos # (Auto) 0.1 Baso # (Auto) 0.0 Sodium Potassium Chloride Carbon Dioxide Anion Gap BUN Creatinine Est GFR ( Amer) Est GFR (Non-Af Amer) POC Glucose (mg/dL) 90 Random Glucose Hemoglobin A1c 6.8 H Calcium Total Bilirubin AST ALT Alkaline Phosphatase Troponin I Total Protein Albumin Globulin Albumin/Globulin Ratio Ur L.pneumophila Ag Mycoplasma pneumon IgM 09/21/18 09/21/18 09/21/18 06:40 11:13 16:15 WBC RBC Hgb Hct MCV MCH MCHC RDW Plt Count MPV Neut % (Auto) Lymph % (Auto) [place] % (Auto) Eos % (Auto) Baso % (Auto) Neut # (Auto) Lymph # (Auto) [place] # (Auto) Eos # (Auto) Baso # (Auto) Sodium 133 Potassium 3.9 Chloride 94 L Carbon Dioxide 28 Anion Gap 15 BUN 19 Creatinine 0.9 Est GFR ( Amer) > 60 Est GFR (Non-Af Amer) > 60 POC Glucose (mg/dL) 148 H 93 Random Glucose 84 Hemoglobin A1c Calcium 8.8 Total Bilirubin 1.3 AST 32 ALT 31 Alkaline Phosphatase 95 Troponin I 0.0150 Total Protein 7.0 Albumin 3.5 Globulin 3.6 Albumin/Globulin Ratio 1.0 Ur L.pneumophila Ag Mycoplasma pneumon IgM 09/21/18 09/21/18 09/21/18 16:38 20:16 21:31 WBC RBC Hgb Hct MCV MCH MCHC RDW Plt Count MPV Neut % (Auto) Lymph % (Auto) [place] % (Auto) Eos % (Auto) Baso % (Auto) Neut # (Auto) Lymph # (Auto) [place] # (Auto) Eos # (Auto) Baso # (Auto) Sodium Potassium Chloride Carbon Dioxide Anion Gap BUN Creatinine Est GFR ( Amer) Est GFR (Non-Af Amer) POC Glucose (mg/dL) 135 H Random Glucose Hemoglobin A1c Calcium Total Bilirubin AST ALT Alkaline Phosphatase Troponin I Total Protein Albumin Globulin Albumin/Globulin Ratio Ur L.pneumophila Ag Negative Mycoplasma pneumon IgM Negative
--- NOTE | 2018-09-22 07:14 | CP.PCM.PN ---
<Earl Beck - Last Filed: 09/22/18 14:55> Subjective - Date & Time of Evaluation Date of Evaluation: 09/22/18 Time of Evaluation: 07:30 - Subjective Subjective: PGY 1 Medicine Progress Note For hospitalist Dr. Perdue. Patient seen and examined at bedside. No overnight events reported. Patient states his breathing feels improved; however, patient unable to verbalize more than a several workds without SOB. Patient states he can walk about 10 steps without SOB. Patient also states his abdomen is distended for about 2 months. Patient denies abdominal pain, nausea, vomiting, headaches, vision changes. Objective - Vital Signs/Intake and Output Vital Signs (last 24 hours): Temp Pulse Resp BP Pulse Ox 98.3 F 80 20 110/56 L 98 09/22/18 00:00 09/22/18 01:25 09/22/18 00:00 09/22/18 00:00 09/22/18 00:00 Intake and Output: 09/22/18 09/22/18 06:59 18:59 Intake Total 1020 Output Total 450 Balance 570 - Medications Medications: Current Medications Aspirin (Ecotrin) 81 mg PO DAILY JAREN Last Admin: 09/21/18 10:30 Dose: 81 mg Cilostazol (Pletal) 50 mg PO DAILY JAREN Last Admin: 09/21/18 10:57 Dose: 50 mg Dextrose (Dextrose 50% Inj) 0 ml IV STAT PRN; Protocol PRN Reason: Hypoglycemia Protocol Dextrose (Glutose 15) 0 gm PO ONCE PRN; Protocol PRN Reason: Hypoglycemia Protocol Doxycycline Hyclate (Doryx) 100 mg PO Q12H JAREN; Protocol Last Admin: 09/21/18 22:45 Dose: Not Given Duloxetine HCl (Cymbalta) 60 mg PO Q24H JAREN Last Admin: 09/21/18 12:37 Dose: 60 mg Furosemide (Lasix) 20 mg IVP DAILY JAREN Last Admin: 09/21/18 10:57 Dose: 20 mg Glucagon (Glucagen Diagnostic Kit) 0 mg IM STAT PRN; Protocol PRN Reason: Hypoglycemia Protocol Heparin Sodium (Porcine) (Heparin) 5,000 units SC Q12 JAREN Last Admin: 09/21/18 22:10 Dose: 5,000 units Ceftriaxone Sodium 1 gm/ (Sodium Chloride) 100 mls @ 100 mls/hr IVPB Q24H JAREN; Protocol Last Admin: 09/21/18 22:45 Dose: Not Given Dextrose (Dextrose 5% In Water 1000 Ml) 1,000 mls @ 0 mls/hr IV .Q0M PRN; Protocol PRN Reason: Hypoglycemia Protocol Insulin Human Regular (Novolin R) 0 unit SC ACHS [facility]; Protocol Last Admin: 09/21/18 22:02 Dose: Not Given Losartan Potassium (Cozaar) 25 mg PO DAILY [facility] Last Admin: 09/21/18 10:30 Dose: 25 mg Metoprolol Succinate (Toprol Xl) 25 mg PO DAILY [facility] Last Admin: 09/21/18 10:30 Dose: 25 mg Pantoprazole Sodium (Protonix Ec Tab) 40 mg PO DAILY [facility] Last Admin: 09/21/18 17:42 Dose: 40 mg Ranolazine (Ranexa) 1,000 mg PO BID [facility] Last Admin: 09/21/18 17:42 Dose: 1,000 mg - Labs Labs: 09/21/18 06:40 09/21/18 06:40 PT 13.6 SECONDS (9.7-12.2) H 09/20/18 20:02 INR 1.2 09/20/18 20:02 APTT 35 SECONDS (21-34) H 09/20/18 20:02 - Constitutional Appears: Non-toxic, No Acute Distress - Head Exam Head Exam: NORMAL INSPECTION - Eye Exam Eye Exam: Normal appearance - ENT Exam ENT Exam: Mucous Membranes Moist - Respiratory Exam Respiratory Exam: Rales, NORMAL BREATHING PATTERN. absent: Respiratory Distress Additional comments: Rales b/l lower lobes > upper - Cardiovascular Exam Cardiovascular Exam: +S1, +S2. absent: Murmur - GI/Abdominal Exam GI & Abdominal Exam: Distended, Soft, Normal Bowel Sounds. absent: Guarding, Rigid - Extremities Exam Extremities Exam: Full ROM, Normal Inspection. absent: Calf Tenderness, Pedal Edema - Back Exam Back Exam: NORMAL INSPECTION. absent: CVA tenderness (L), CVA tenderness (R) - Neurological Exam Neurological Exam: Alert, Awake, Oriented x3 - Psychiatric Exam Psychiatric exam: Normal Affect, Normal Mood - Skin Skin Exam: Dry, Intact, Normal Color, Warm Assessment and Plan - Assessment and Plan (Free Text) Assessment: Patient is a 58 male With a PMHx of Dm, PVD, HLD, angina, HTN, and gastritis who presented to the ED for SOB occurring for 2-3 wks. Patient was referred by his Crib Pad Maker to come to the ED. Chest xray showed cardiomegaly and bilateral infiltrates. Chest Ct was ordered which showed patchy bilateral lower lobe infiltrates and atelectasis. Ct abd/pelvis was ordered for distended abdomen. CT abd/pevlis showed no acute intra abdominal pathology and no ascites. Plan: Multifocal Pneumonia Chest xray- shows venous congestion, and patchy bibasilar airspace consolidative changes. CT chest: No PE, severe cardiomegaly, diffuse major coronary calcifications, venous congestion changes, Rt Heart failure, multifocal PNA CT abdomen pelvis: no acute abdominal pathology; bilateral patchy infiltrates and atelectasis; 2 inguinal and 1 umbilical hernia Rocephin 1gm IVPB QD Doxycline 100mg PO BID Blood cultures X 24 negative; influenza negative, myco & legionella negative, ; sputum cx pending F/u Dr. Dunbar, Pulm recs Hx of CABG Cardio consulted: Dr. Yan recommendations appreciated - lasix until SOB resolves - no further cardiac work up - Trops negative - Prior stress tests nromal - Normal EF - Diastolic CHF - Medical management for CAD - ASA 81mg PO daily - crestor 5mg QHS DM2 ISS; hypoglycemic protocol; ACHS Duloxetine 60mg po q24 jaren Hyponatremia Resolved after lasix Hx of CHF Cardio consulted: Dr. Yan- recommendations appreciated On admission: BNP 1570 Lasix 20mg IVP daily jaren HTN Losartan 25mg PO QD Metoprolol 25mg PO QD PAD Cilostazol 50mg po daily Prophylaxis DVT: heparin 5000 sc Q12H GI: Protonix 40mg po hs Diet HHD low CHO <Perdue,Peter H - Last Filed: 09/22/18 17:32> Objective - Vital Signs/Intake and Output Vital Signs (last 24 hours): Temp Pulse Resp BP Pulse Ox 97.5 F L 89 20 129/70 95 09/22/18 15:00 09/22/18 16:31 09/22/18 15:00 09/22/18 15:00 09/22/18 15:00 Intake and Output: 09/22/18 09/22/18 06:59 18:59 Intake Total 1020 Output Total 450 Balance 570 - Medications Medications: Current Medications Aspirin (Ecotrin) 81 mg PO DAILY JAREN Last Admin: 09/22/18 10:53 Dose: 81 mg Cilostazol (Pletal) 50 mg PO DAILY JAREN Last Admin: 09/22/18 10:52 Dose: 50 mg Dextrose (Dextrose 50% Inj) 0 ml IV STAT PRN; Protocol PRN Reason: Hypoglycemia Protocol Dextrose (Glutose 15) 0 gm PO ONCE PRN; Protocol PRN Reason: Hypoglycemia Protocol Doxycycline Hyclate (Doryx) 100 mg PO Q12H JAREN; Protocol Last Admin: 09/22/18 12:20 Dose: 100 mg Duloxetine HCl (Cymbalta) 60 mg PO Q24H JAREN Last Admin: 09/22/18 12:20 Dose: 60 mg Furosemide (Lasix) 20 mg IVP DAILY JAREN Last Admin: 09/22/18 10:53 Dose: 20 mg Glucagon (Glucagen Diagnostic Kit) 0 mg IM STAT PRN; Protocol PRN Reason: Hypoglycemia Protocol Heparin Sodium (Porcine) (Heparin) 5,000 units SC Q12 JAREN Last Admin: 09/22/18 10:52 Dose: 5,000 units Ceftriaxone Sodium 1 gm/ (Sodium Chloride) 100 mls @ 100 mls/hr IVPB Q24H JAREN; Protocol Last Admin: 09/21/18 22:45 Dose: Not Given Dextrose (Dextrose 5% In Water 1000 Ml) 1,000 mls @ 0 mls/hr IV .Q0M PRN; Protocol PRN Reason: Hypoglycemia Protocol Insulin Human Regular (Novolin R) 0 unit SC ACHS JAREN; Protocol Last Admin: 09/22/18 17:13 Dose: Not Given Losartan Potassium (Cozaar) 25 mg PO DAILY [facility] Last Admin: 09/22/18 10:53 Dose: 25 mg Metoprolol Succinate (Toprol Xl) 25 mg PO DAILY JAREN Last Admin: 09/22/18 10:52 Dose: 25 mg Pantoprazole Sodium (Protonix Ec Tab) 40 mg PO DAILY [facility] Last Admin: 09/22/18 10:53 Dose: 40 mg Ranolazine (Ranexa) 1,000 mg PO BID [facility] Last Admin: 09/22/18 10:52 Dose: 1,000 mg Rosuvastatin Calcium (Crestor) 5 mg PO HS JAREN - Labs Labs: 09/22/18 07:38 09/22/18 07:38 PT 13.6 SECONDS (9.7-12.2) H 09/20/18 20:02 INR 1.2 09/20/18 20:02 APTT 35 SECONDS (21-34) H 09/20/18 20:02 Attending/Attestation - Attestation I have personally seen and examined this patient.: Yes I have fully participated in the care of the patient.: Yes I have reviewed all pertinent clinical information, including history, physical exam and plan: Yes Notes (Text): 09/22/18 17:31 Medical attending: Patient was seen and examined by me, reviewed the above note by medical affairs leader and agrees the above. The patient was not in any acute distress. He said that he still having some shortness of breath despite giving Lasix. As mentioned previously the patient remains on IV antibiotics at this time. So far blood cultures have been negative for the past 24 hours, the flu studies are negative as well and also the atypical cultures are negative Cardiology asked that pulmonology service be consulted and we have done that area So for the patient's cardiac enzymes negative 3 CT of the abdomen and pelvis showed no acute situations. They did see some hernias however these were stable. The CAT scan of the chest showed no PE, there is cardiomegaly as well as the findings of the pneumonia bilaterally Quinn Perdue
[2018-09-22 07:46] LABS: BASO % 0.3 % (0.0-2.0); EOS # 0.1 K/uL (0.0-0.7); EOS % 0.9 % (0.0-4.0); HEMOGLOBIN 11.2 g/dL (12.0-18.0); LYMPH % 14.6 % (20.0-40.0); MEAN CELL VOLUME 77.9 fL (80.0-94.0); MEAN CORPUSCULAR HEMOGLOBIN 25.2 pg (27.0-31.0); MEAN CORPUSCULAR HGB CONC 32.3 g/dL (33.0-37.0); MEAN PLATELET VOLUME 8.3 fL (7.2-11.7); MONO # 0.8 K/uL (0.0-0.8); MONO % 11.2 % (0.0-10.0); NRBC % 0.1 % (0.0-2.0); RBC 4.46 Mil/uL (4.40-5.90); RED CELL DISTRIBUTION WIDTH 17.5 % (11.5-14.5); WHITE BLOOD COUNT 6.8 K/uL (4.8-10.8)
[2018-09-22] MEDS: (Novolin R) Insulin Human Regular 100 units/ml vial SC SCH ×3 (08:14→17:13)
[2018-09-22 08:24] LABS: ALBUMIN 3.3 g/dL (3.5-5.0); ALT/SGPT 28 U/L (21-72); AST/SGOT 31 U/L (17-59); BLOOD UREA NITROGEN 24 mg/dL (9-20); CALCIUM 8.8 mg/dl (8.6-10.4); GFR NON-AFRICAN AMERICAN > 60
[2018-09-22] MEDS: Metoprolol Succinate 25 mg XL Tab PO SCH (10:52)
[2018-09-22] MEDS: Cilostazol 50 mg Tab UD PO SCH (10:52)
[2018-09-22] MEDS: Ranolazine 500 mg Extended Release Tablets PO SCH ×2 (10:52→17:36)
[2018-09-22] MEDS: Pantoprazole 40 mg EC Tab PO SCH (10:53)
--- NOTE | 2018-09-22 14:41 | CP.PCM.PN ---
<Mindy Zafar - Last Filed: 09/22/18 14:21> Subjective - Date & Time of Evaluation Date of Evaluation: 09/22/18 Time of Evaluation: 14:21 - Subjective Subjective: Cardiology Follow Up Patient was seen and examined at bedside. Patient denied any current chest pain, shortness of breath or palpitations. Objective - Vital Signs/Intake and Output Vital Signs (last 24 hours): Temp Pulse Resp BP Pulse Ox 98 F 84 20 127/77 96 09/22/18 08:10 09/22/18 12:00 09/22/18 08:10 09/22/18 10:53 09/22/18 08:10 Intake and Output: 09/22/18 09/22/18 06:59 18:59 Intake Total 1020 Output Total 450 Balance 570 - Medications Medications: Current Medications Aspirin (Ecotrin) 81 mg PO DAILY [facility] Last Admin: 09/22/18 10:53 Dose: 81 mg Cilostazol (Pletal) 50 mg PO DAILY [facility] Last Admin: 09/22/18 10:52 Dose: 50 mg Dextrose (Dextrose 50% Inj) 0 ml IV STAT PRN; Protocol PRN Reason: Hypoglycemia Protocol Dextrose (Glutose 15) 0 gm PO ONCE PRN; Protocol PRN Reason: Hypoglycemia Protocol Doxycycline Hyclate (Doryx) 100 mg PO Q12H BRIANDA; Protocol Last Admin: 09/22/18 12:20 Dose: 100 mg Duloxetine HCl (Cymbalta) 60 mg PO Q24H BRIANDA Last Admin: 09/22/18 12:20 Dose: 60 mg Furosemide (Lasix) 20 mg IVP DAILY [facility] Last Admin: 09/22/18 10:53 Dose: 20 mg Glucagon (Glucagen Diagnostic Kit) 0 mg IM STAT PRN; Protocol PRN Reason: Hypoglycemia Protocol Heparin Sodium (Porcine) (Heparin) 5,000 units SC Q12 BRIANDA Last Admin: 09/22/18 10:52 Dose: 5,000 units Ceftriaxone Sodium 1 gm/ (Sodium Chloride) 100 mls @ 100 mls/hr IVPB Q24H BRIANDA; Protocol Last Admin: 09/21/18 22:45 Dose: Not Given Dextrose (Dextrose 5% In Water 1000 Ml) 1,000 mls @ 0 mls/hr IV .Q0M PRN; Protocol PRN Reason: Hypoglycemia Protocol Insulin Human Regular (Novolin R) 0 unit SC ACHS [facility]; Protocol Last Admin: 09/22/18 14:11 Dose: Not Given Losartan Potassium (Cozaar) 25 mg PO DAILY [facility] Last Admin: 09/22/18 10:53 Dose: 25 mg Metoprolol Succinate (Toprol Xl) 25 mg PO DAILY [facility] Last Admin: 09/22/18 10:52 Dose: 25 mg Pantoprazole Sodium (Protonix Ec Tab) 40 mg PO DAILY [facility] Last Admin: 09/22/18 10:53 Dose: 40 mg Ranolazine (Ranexa) 1,000 mg PO BID [facility] Last Admin: 09/22/18 10:52 Dose: 1,000 mg Rosuvastatin Calcium (Crestor) 5 mg PO HS [facility] - Labs Labs: 09/22/18 07:38 09/22/18 07:38 PT 13.6 SECONDS (9.7-12.2) H 09/20/18 20:02 INR 1.2 09/20/18 20:02 APTT 35 SECONDS (21-34) H 09/20/18 20:02 - Constitutional Appears: No Acute Distress - Head Exam Head Exam: NORMAL INSPECTION, NORMOCEPHALIC - Eye Exam Eye Exam: EOMI, PERRL Pupil Exam: NORMAL ACCOMODATION - ENT Exam ENT Exam: Mucous Membranes Moist - Respiratory Exam Respiratory Exam: Clear to Ausculation Bilateral, NORMAL BREATHING PATTERN - Cardiovascular Exam Cardiovascular Exam: +S1, +S2 - GI/Abdominal Exam GI & Abdominal Exam: Soft, Normal Bowel Sounds. absent: Distended, Tenderness - Neurological Exam Neurological Exam: Alert, Awake, Oriented x3 - Psychiatric Exam Psychiatric exam: Normal Affect, Normal Mood - Skin Skin Exam: Dry, Intact, Normal Color, Warm Assessment and Plan - Assessment and Plan (Free Text) Plan: Chronic Angina CAD, Diastolic Heart Failure Imaging: - Prior stress tests: no ischemia noted Management: - Continue with medical management for CAD - No additional cardiac work up - DC lasix when breathing improves Case discussed with Mindy Leblanc DO, PGY2 <Rikki Yan - Last Filed: 09/22/18 20:00> Objective - Vital Signs/Intake and Output Vital Signs (last 24 hours): Temp Pulse Resp BP Pulse Ox 97.5 F L 89 20 129/70 95 09/22/18 15:00 09/22/18 16:31 09/22/18 15:00 12/14/18 15:00 09/22/18 15:00 - Medications Medications: Current Medications Aspirin (Ecotrin) 81 mg PO DAILY [facility] Last Admin: 09/22/18 10:53 Dose: 81 mg Cilostazol (Pletal) 50 mg PO DAILY [facility] Last Admin: 09/22/18 10:52 Dose: 50 mg Dextrose (Dextrose 50% Inj) 0 ml IV STAT PRN; Protocol PRN Reason: Hypoglycemia Protocol Dextrose (Glutose 15) 0 gm PO ONCE PRN; Protocol PRN Reason: Hypoglycemia Protocol Doxycycline Hyclate (Doryx) 100 mg PO Q12H [facility]; Protocol Last Admin: 09/22/18 12:20 Dose: 100 mg Duloxetine HCl (Cymbalta) 60 mg PO Q24H [facility] Last Admin: 09/22/18 12:20 Dose: 60 mg Furosemide (Lasix) 20 mg IVP DAILY [facility] Last Admin: 09/22/18 10:53 Dose: 20 mg Glucagon (Glucagen Diagnostic Kit) 0 mg IM STAT PRN; Protocol PRN Reason: Hypoglycemia Protocol Heparin Sodium (Porcine) (Heparin) 5,000 units SC Q12 [facility] Last Admin: 09/22/18 10:52 Dose: 5,000 units Ceftriaxone Sodium 1 gm/ (Sodium Chloride) 100 mls @ 100 mls/hr IVPB Q24H [facility]; Protocol Last Admin: 09/21/18 22:45 Dose: Not Given Dextrose (Dextrose 5% In Water 1000 Ml) 1,000 mls @ 0 mls/hr IV .Q0M PRN; Protocol PRN Reason: Hypoglycemia Protocol Insulin Human Regular (Novolin R) 0 unit SC ACHS [facility]; Protocol Last Admin: 09/22/18 17:13 Dose: Not Given Losartan Potassium (Cozaar) 25 mg PO DAILY [facility] Last Admin: 09/22/18 10:53 Dose: 25 mg Metoprolol Succinate (Toprol Xl) 25 mg PO DAILY [facility] Last Admin: 09/22/18 10:52 Dose: 25 mg Pantoprazole Sodium (Protonix Ec Tab) 40 mg PO DAILY [facility] Last Admin: 09/22/18 10:53 Dose: 40 mg Ranolazine (Ranexa) 1,000 mg PO BID [facility] Last Admin: 09/22/18 17:36 Dose: 1,000 mg Rosuvastatin Calcium (Crestor) 5 mg PO HS [facility] - Labs Labs: 09/22/18 07:38 09/22/18 07:38 PT 13.6 SECONDS (9.7-12.2) H 09/20/18 20:02 INR 1.2 09/20/18 20:02 APTT 35 SECONDS (21-34) H 09/20/18 20:02 Assessment and Plan - Assessment and Plan (Free Text) Plan: Patient seen and evaluated personally by me. Plan of care d/w the biomedical engineering aide and as documented
--- NOTE | 2018-09-22 14:56 | CP.PCM.CON ---
History of Present Illness - History of Present Illness History of Present Illness: Reason for Consultation: SOB, Pneumonia Patient is a 58 year old [place] male with PMHx of DM, PVD, HLD, HTN, CAD, chronic angina, and gastritis who presented to the ED on 09/20/18 with SOB that has been happening for the past 2-3 weeks. Patient was told to come to ER by driver education road instructor. He complains of a productive cough, with grayish phlegm for the past 3 days. He states difficulty walking a block which has worsened in the past 3 weeks. He also complains of chest pain. He denies fevers, chills, or headaches. WBC trending from 13.0 to 11.4 to 6.8 today 09/22/18. ABG (09/20/18): pCO2 42, pO2 146, HCO3 24.1, pH 7.37 Blood cxs no growth after 24 hours, gram stain pending PMHx: DM, PVD, HLD, HTN, CAD, chronic angina, and gastritis PSHx: CABG (2003), Coronary Stent (2010) Social Hx: Denies smoking, alcohol, or drug use. Retired Family Hx: Heart Disease (several members) Allergies: NKDA Medications: Ceftriaxone, Doxycyline, Lasix 20mg, CXR (09/20/18): Moderate to severe venous congestion. Patchy bibasilar consolidative changes. Small right and moderate left pleural effusion. Cardiomegaly. Chest CT (09/20/18): No large central pulmonary emboli seen. Cardiomegaly. Patchy bilateral infiltrates and atelectatic changes on both lower lung granda. Review of Systems - Review of Systems All systems: reviewed and no additional remarkable complaints except (Cough and shortness of breath) Past Patient History - Infectious Disease Hx of Infectious Diseases: None - Past Medical History & Family History Past Medical History?: Yes - Past Social History Smoking Status: Never Smoked - CARDIAC Hx Hypercholesterolemia: Yes Hx Hypertension: Yes - PULMONARY Hx Pneumonia: Yes - NEUROLOGICAL Hx Neurological Disorder: No - HEENT Hx HEENT Problems: No - RENAL Hx Chronic Kidney Disease: No - ENDOCRINE/METABOLIC Hx Endocrine Disorders: Yes Hx Diabetes Mellitus Type 2: Yes - HEMATOLOGICAL/ONCOLOGICAL Hx Anemia: Yes - INTEGUMENTARY Hx Dermatological Problems: No - MUSCULOSKELETAL/RHEUMATOLOGICAL Hx Musculoskeletal Disorders: No Hx Falls: No - GASTROINTESTINAL Hx Gastritis: Yes - GENITOURINARY/GYNECOLOGICAL Hx Genitourinary Disorders: No - PSYCHIATRIC Hx Depression: Yes Hx Substance Use: No - SURGICAL HISTORY Hx Coronary Artery Bypass Graft: Yes (2003) Hx Coronary Stent: Yes (2010) - ANESTHESIA Hx Anesthesia: Yes Hx Anesthesia Reactions: No Hx Malignant Hyperthermia: No Meds Allergies/Adverse Reactions: Allergies Allergy/AdvReac Type Severity Reaction Status Date / Time No Known Allergies Allergy Verified 08/17/16 19:40 - Medications Medications: Current Medications Aspirin (Ecotrin) 81 mg PO DAILY [facility] Last Admin: 09/22/18 10:53 Dose: 81 mg Cilostazol (Pletal) 50 mg PO DAILY [facility] Last Admin: 09/22/18 10:52 Dose: 50 mg Dextrose (Dextrose 50% Inj) 0 ml IV STAT PRN; Protocol PRN Reason: Hypoglycemia Protocol Dextrose (Glutose 15) 0 gm PO ONCE PRN; Protocol PRN Reason: Hypoglycemia Protocol Doxycycline Hyclate (Doryx) 100 mg PO Q12H [facility]; Protocol Last Admin: 09/22/18 12:20 Dose: 100 mg Duloxetine HCl (Cymbalta) 60 mg PO Q24H [facility] Last Admin: 09/22/18 12:20 Dose: 60 mg Furosemide (Lasix) 20 mg IVP DAILY [facility] Last Admin: 09/22/18 10:53 Dose: 20 mg Glucagon (Glucagen Diagnostic Kit) 0 mg IM STAT PRN; Protocol PRN Reason: Hypoglycemia Protocol Heparin Sodium (Porcine) (Heparin) 5,000 units SC Q12 [facility] Last Admin: 09/22/18 10:52 Dose: 5,000 units Ceftriaxone Sodium 1 gm/ (Sodium Chloride) 100 mls @ 100 mls/hr IVPB Q24H [facility]; Protocol Last Admin: 09/21/18 22:45 Dose: Not Given Dextrose (Dextrose 5% In Water 1000 Ml) 1,000 mls @ 0 mls/hr IV .Q0M PRN; Protocol PRN Reason: Hypoglycemia Protocol Insulin Human Regular (Novolin R) 0 unit SC ACHS [facility]; Protocol Last Admin: 09/22/18 14:11 Dose: Not Given Losartan Potassium (Cozaar) 25 mg PO DAILY [facility] Last Admin: 09/22/18 10:53 Dose: 25 mg Metoprolol Succinate (Toprol Xl) 25 mg PO DAILY [facility] Last Admin: 09/22/18 10:52 Dose: 25 mg Pantoprazole Sodium (Protonix Ec Tab) 40 mg PO DAILY [facility] Last Admin: 09/22/18 10:53 Dose: 40 mg Ranolazine (Ranexa) 1,000 mg PO BID [facility] Last Admin: 09/22/18 10:52 Dose: 1,000 mg Rosuvastatin Calcium (Crestor) 5 mg PO [facility] Physical Exam - Head Exam Head Exam: ATRAUMATIC, NORMOCEPHALIC - ENT Exam ENT Exam: Mucous Membranes Moist - Neck Exam Neck exam: Positive for: Normal Inspection - Respiratory Exam Respiratory Exam: Rales - Cardiovascular Exam Cardiovascular Exam: REGULAR RHYTHM - GI/Abdominal Exam GI & Abdominal Exam: Normal Bowel Sounds Results - Vital Signs Recent Vital Signs: Last Vital Signs Temp 98 F 09/22/18 08:10 Pulse 84 09/22/18 12:00 Resp 20 09/22/18 08:10 BP 127/77 09/22/18 10:53 Pulse Ox 96 09/22/18 08:10 - Labs Result Diagrams: 09/22/18 07:38 09/22/18 07:38 Labs: Laboratory Results - last 24 hr 09/21/18 09/21/18 09/21/18 16:15 16:38 20:16 WBC RBC Hgb Hct MCV MCH MCHC RDW Plt Count MPV Neut % (Auto) Lymph % (Auto) Gilmer % (Auto) Eos % (Auto) Baso % (Auto) Neut # (Auto) Lymph # (Auto) [place]mer # (Auto) Eos # (Auto) Baso # (Auto) Sodium Potassium Chloride Carbon Dioxide Anion Gap BUN Creatinine Est GFR ( Amer) Est GFR (Non-Af Amer) POC Glucose (mg/dL) 93 Random Glucose Calcium Total Bilirubin AST ALT Alkaline Phosphatase Total Protein Albumin Globulin Albumin/Globulin Ratio Ur L.pneumophila Ag Negative Mycoplasma pneumon IgM Negative 09/21/18 09/22/18 09/22/18 21:31 06:30 07:38 WBC 6.8 RBC 4.46 Hgb 11.2 L Hct 34.8 L MCV 77.9 L MCH 25.2 L MCHC 32.3 L RDW 17.5 H Plt Count 209 MPV 8.3 Neut % (Auto) 73.0 Lymph % (Auto) 14.6 L Gilmer % (Auto) 11.2 H Eos % (Auto) 0.9 Baso % (Auto) 0.3 Neut # (Auto) 5.0 Lymph # (Auto) 1.0 Gilmer # (Auto) 0.8 Eos # (Auto) 0.1 Baso # (Auto) 0.0 Sodium Potassium Chloride Carbon Dioxide Anion Gap BUN Creatinine Est GFR ( Amer) Est GFR (Non-Af Amer) POC Glucose (mg/dL) 135 H 76 Random Glucose Calcium Total Bilirubin AST ALT Alkaline Phosphatase Total Protein Albumin Globulin Albumin/Globulin Ratio Ur L.pneumophila Ag Mycoplasma pneumon IgM 09/22/18 09/22/18 07:38 12:00 WBC RBC Hgb Hct MCV MCH MCHC RDW Plt Count MPV Neut % (Auto) Lymph % (Auto) Gilmer % (Auto) Eos % (Auto) Baso % (Auto) Neut # (Auto) Lymph # (Auto) Gilmer # (Auto) Eos # (Auto) Baso # (Auto) Sodium 133 Potassium 3.9 Chloride 95 L Carbon Dioxide 27 Anion Gap 15 BUN 24 H Creatinine 0.7 L Est GFR ( Amer) > 60 Est GFR (Non-Af Amer) > 60 POC Glucose (mg/dL) 146 H Random Glucose 117 H Calcium 8.8 Total Bilirubin 1.2 AST 31 ALT 28 Alkaline Phosphatase 82 Total Protein 6.8 Albumin 3.3 L Globulin 3.5 Albumin/Globulin Ratio 1.0 Ur L.pneumophila Ag Mycoplasma pneumon IgM Assessment & Plan (1) Pneumonia Status: Acute Comment: continue antibiotics. Mycoplasma IgM titer. Cardiology workup. Foll owup chest X.ray (2) CHF (congestive heart failure) Status: Acute (3) Dyspnea Status: Acute
[2018-09-22] MEDS ORDERED: guaiFENesin DM 100 mg-10 mg/5 ml UD PO PRN (21:48)
--- NOTE | 2018-09-23 07:24 | CP.PCM.PN ---
<Neena Sagastume - Last Filed: 09/23/18 07:24> Objective - Vital Signs/Intake and Output Vital Signs (last 24 hours): Temp Pulse Resp BP Pulse Ox 97.6 F 87 20 150/80 98 09/23/18 07:00 09/23/18 07:00 09/23/18 07:00 09/23/18 07:00 09/23/18 07:00 - Medications Medications: Current Medications Aspirin (Ecotrin) 81 mg PO DAILY [facility] Last Admin: 09/22/18 10:53 Dose: 81 mg Cilostazol (Pletal) 50 mg PO DAILY [facility] Last Admin: 09/22/18 10:52 Dose: 50 mg Dextrose (Dextrose 50% Inj) 0 ml IV STAT PRN; Protocol PRN Reason: Hypoglycemia Protocol Dextrose (Glutose 15) 0 gm PO ONCE PRN; Protocol PRN Reason: Hypoglycemia Protocol Doxycycline Hyclate (Doryx) 100 mg PO Q12H [facility]; Protocol Last Admin: 09/22/18 23:33 Dose: 100 mg Duloxetine HCl (Cymbalta) 60 mg PO Q24H [facility] Last Admin: 09/22/18 12:20 Dose: 60 mg Furosemide (Lasix) 20 mg IVP DAILY [facility] Last Admin: 09/22/18 10:53 Dose: 20 mg Glucagon (Glucagen Diagnostic Kit) 0 mg IM STAT PRN; Protocol PRN Reason: Hypoglycemia Protocol Guaifenesin/Dextromethorphan (Robitussin Dm) 5 ml PO Q4H PRN PRN Reason: Cough Heparin Sodium (Porcine) (Heparin) 5,000 units SC Q12 [facility] Last Admin: 09/22/18 21:42 Dose: 5,000 units Ceftriaxone Sodium 1 gm/ (Sodium Chloride) 100 mls @ 100 mls/hr IVPB Q24H [facility]; Protocol Last Admin: 09/22/18 22:49 Dose: 100 mls/hr Dextrose (Dextrose 5% In Water 1000 Ml) 1,000 mls @ 0 mls/hr IV .Q0M PRN; Protocol PRN Reason: Hypoglycemia Protocol Insulin Human Regular (Novolin R) 0 unit SC ACHS [facility]; Protocol Last Admin: 09/22/18 17:13 Dose: Not Given Losartan Potassium (Cozaar) 25 mg PO DAILY [facility] Last Admin: 09/22/18 10:53 Dose: 25 mg Metoprolol Succinate (Toprol Xl) 25 mg PO DAILY [facility] Last Admin: 09/22/18 10:52 Dose: 25 mg Pantoprazole Sodium (Protonix Ec Tab) 40 mg PO DAILY [facility] Last Admin: 09/22/18 10:53 Dose: 40 mg Ranolazine (Ranexa) 1,000 mg PO BID [facility] Last Admin: 09/22/18 17:36 Dose: 1,000 mg Rosuvastatin Calcium (Crestor) 5 mg PO HS [facility] Last Admin: 09/22/18 21:42 Dose: 5 mg - Labs Labs: 09/22/18 07:38 09/22/18 07:38 PT 13.6 SECONDS (9.7-12.2) H 09/20/18 20:02 INR 1.2 09/20/18 20:02 APTT 35 SECONDS (21-34) H 09/20/18 20:02 <Quinn Perdue H - Last Filed: 09/23/18 09:31> Subjective - Date & Time of Evaluation Date of Evaluation: 09/23/18 Time of Evaluation: 09:00 - Subjective Subjective: Please see my note, thank you Objective - Vital Signs/Intake and Output Vital Signs (last 24 hours): Temp Pulse Resp BP Pulse Ox 97.6 F 87 20 150/80 98 09/23/18 07:00 09/23/18 07:00 09/23/18 07:00 09/23/18 07:00 09/23/18 07:00 - Medications Medications: Current Medications Aspirin (Ecotrin) 81 mg PO DAILY [facility] Last Admin: 09/22/18 10:53 Dose: 81 mg Cilostazol (Pletal) 50 mg PO DAILY [facility] Last Admin: 09/22/18 10:52 Dose: 50 mg Dextrose (Dextrose 50% Inj) 0 ml IV STAT PRN; Protocol PRN Reason: Hypoglycemia Protocol Dextrose (Glutose 15) 0 gm PO ONCE PRN; Protocol PRN Reason: Hypoglycemia Protocol Doxycycline Hyclate (Doryx) 100 mg PO Q12H [facility]; Protocol Last Admin: 09/22/18 23:33 Dose: 100 mg Duloxetine HCl (Cymbalta) 60 mg PO Q24H [facility] Last Admin: 09/22/18 12:20 Dose: 60 mg Furosemide (Lasix) 40 mg IVP Q12 [facility] Glucagon (Glucagen Diagnostic Kit) 0 mg IM STAT PRN; Protocol PRN Reason: Hypoglycemia Protocol Guaifenesin/Dextromethorphan (Robitussin Dm) 5 ml PO Q4H PRN PRN Reason: Cough Heparin Sodium (Porcine) (Heparin) 5,000 units SC Q12 [facility] Last Admin: 09/22/18 21:42 Dose: 5,000 units Ceftriaxone Sodium 1 gm/ (Sodium Chloride) 100 mls @ 100 mls/hr IVPB Q24H [facility]; Protocol Last Admin: 09/22/18 22:49 Dose: 100 mls/hr Dextrose (Dextrose 5% In Water 1000 Ml) 1,000 mls @ 0 mls/hr IV .Q0M PRN; Protocol PRN Reason: Hypoglycemia Protocol Insulin Human Regular (Novolin R) 0 unit SC ACHS [facility]; Protocol Last Admin: 09/23/18 07:30 Dose: Not Given Losartan Potassium (Cozaar) 25 mg PO DAILY [facility] Last Admin: 09/22/18 10:53 Dose: 25 mg Metoprolol Succinate (Toprol Xl) 25 mg PO DAILY [facility] Last Admin: 09/22/18 10:52 Dose: 25 mg Pantoprazole Sodium (Protonix Ec Tab) 40 mg PO DAILY [facility] Last Admin: 09/22/18 10:53 Dose: 40 mg Ranolazine (Ranexa) 1,000 mg PO BID [facility] Last Admin: 09/22/18 17:36 Dose: 1,000 mg Rosuvastatin Calcium (Crestor) 5 mg PO HS [facility] Last Admin: 09/22/18 21:42 Dose: 5 mg - Labs Labs: 09/23/18 07:21 09/23/18 07:21 PT 13.6 SECONDS (9.7-12.2) H 09/20/18 20:02 INR 1.2 09/20/18 20:02 APTT 35 SECONDS (21-34) H 09/20/18 20:02
[2018-09-23] MEDS: (Novolin R) Insulin Human Regular 100 units/ml vial SC SCH ×4 (07:30→21:29)
[2018-09-23 07:36] LABS: BASO % 0.5 % (0.0-2.0); EOS # 0.1 K/uL (0.0-0.7); HEMOGLOBIN 11.1 g/dL (12.0-18.0); LYMPH # 1.1 K/uL (1.0-4.3); LYMPH % 20.9 % (20.0-40.0); MEAN CELL VOLUME 77.7 fL (80.0-94.0); MEAN CORPUSCULAR HEMOGLOBIN 25.7 pg (27.0-31.0); MEAN PLATELET VOLUME 7.8 fL (7.2-11.7); MONO # 0.6 K/uL (0.0-0.8); MONO % 12.1 % (0.0-10.0); NEUT # 3.4 K/uL (1.8-7.0); NEUT % 64.5 % (50.0-75.0); NRBC % 0.1 % (0.0-2.0); RBC 4.31 Mil/uL (4.40-5.90); RED CELL DISTRIBUTION WIDTH 17.1 % (11.5-14.5); WHITE BLOOD COUNT 5.3 K/uL (4.8-10.8)
[2018-09-23 08:27] LABS: ALBUMIN 3.2 g/dL (3.5-5.0); ALT/SGPT 29 U/L (21-72); AST/SGOT 26 U/L (17-59); BLOOD UREA NITROGEN 22 mg/dL (9-20); CALCIUM 8.8 mg/dl (8.6-10.4); GFR NON-AFRICAN AMERICAN > 60
--- NOTE | 2018-09-23 09:20 | CP.PCM.PN ---
Subjective - Date & Time of Evaluation Date of Evaluation: 09/23/18 Time of Evaluation: 09:00 - Subjective Subjective: Patient was seen and examined by me. He was sitting up out of bed when I came in this morning. He reported a lot of coughing overnight and he could not sleep. On exam he was able to walk with me to the nurses station - he is NSR in the 80s We are continuing with the IV rocephin and doxycyclin. The patient's WBC continues to decrease, and left shift has also decreased from admission. On CT scan had concerning findings for pneumonia. Blood and urine cultures and sputum cultures are negative at this time. Afebrile Objective - Vital Signs/Intake and Output Vital Signs (last 24 hours): Temp Pulse Resp BP Pulse Ox 97.6 F 87 20 150/80 98 09/23/18 07:00 09/23/18 07:00 09/23/18 07:00 09/23/18 07:00 09/23/18 07:00 - Medications Medications: Current Medications Aspirin (Ecotrin) 81 mg PO DAILY [facility] Last Admin: 09/22/18 10:53 Dose: 81 mg Cilostazol (Pletal) 50 mg PO DAILY [facility] Last Admin: 09/22/18 10:52 Dose: 50 mg Dextrose (Dextrose 50% Inj) 0 ml IV STAT PRN; Protocol PRN Reason: Hypoglycemia Protocol Dextrose (Glutose 15) 0 gm PO ONCE PRN; Protocol PRN Reason: Hypoglycemia Protocol Doxycycline Hyclate (Doryx) 100 mg PO Q12H [facility]; Protocol Last Admin: 09/22/18 23:33 Dose: 100 mg Duloxetine HCl (Cymbalta) 60 mg PO Q24H [facility] Last Admin: 09/22/18 12:20 Dose: 60 mg Furosemide (Lasix) 20 mg IVP DAILY [facility] Last Admin: 09/22/18 10:53 Dose: 20 mg Glucagon (Glucagen Diagnostic Kit) 0 mg IM STAT PRN; Protocol PRN Reason: Hypoglycemia Protocol Guaifenesin/Dextromethorphan (Robitussin Dm) 5 ml PO Q4H PRN PRN Reason: Cough Heparin Sodium (Porcine) (Heparin) 5,000 units SC Q12 [facility] Last Admin: 09/22/18 21:42 Dose: 5,000 units Ceftriaxone Sodium 1 gm/ (Sodium Chloride) 100 mls @ 100 mls/hr IVPB Q24H [facility]; Protocol Last Admin: 09/22/18 22:49 Dose: 100 mls/hr Dextrose (Dextrose 5% In Water 1000 Ml) 1,000 mls @ 0 mls/hr IV .Q0M PRN; Protocol PRN Reason: Hypoglycemia Protocol Insulin Human Regular (Novolin R) 0 unit SC ACHS [facility]; Protocol Last Admin: 09/23/18 07:30 Dose: Not Given Losartan Potassium (Cozaar) 25 mg PO DAILY [facility] Last Admin: 09/22/18 10:53 Dose: 25 mg Metoprolol Succinate (Toprol Xl) 25 mg PO DAILY [facility] Last Admin: 09/22/18 10:52 Dose: 25 mg Pantoprazole Sodium (Protonix Ec Tab) 40 mg PO DAILY [facility] Last Admin: 09/22/18 10:53 Dose: 40 mg Ranolazine (Ranexa) 1,000 mg PO BID [facility] Last Admin: 09/22/18 17:36 Dose: 1,000 mg Rosuvastatin Calcium (Crestor) 5 mg PO HS [facility] Last Admin: 09/22/18 21:42 Dose: 5 mg - Labs Labs: 09/23/18 07:21 09/23/18 07:21 PT 13.6 SECONDS (9.7-12.2) H 09/20/18 20:02 INR 1.2 09/20/18 20:02 APTT 35 SECONDS (21-34) H 09/20/18 20:02 - Constitutional Appears: Non-toxic, No Acute Distress - Head Exam Head Exam: NORMAL INSPECTION, NORMOCEPHALIC - Eye Exam Eye Exam: EOMI, Normal appearance - ENT Exam ENT Exam: Mucous Membranes Moist - Cardiovascular Exam Cardiovascular Exam: REGULAR RHYTHM - GI/Abdominal Exam GI & Abdominal Exam: Soft. absent: Guarding, Rigid, Tenderness - Neurological Exam Neurological Exam: Alert, Awake, Normal Gait, Oriented x3 Neuro motor strength exam: Left Upper Extremity: 5, Right Upper Extremity: 5, Left Lower Extremity: 5, Right Lower Extremity: 5 - Psychiatric Exam Psychiatric exam: Normal Affect, Normal Mood - Skin Skin Exam: Normal Color, Warm Assessment and Plan - Assessment and Plan (Free Text) Assessment: Assessment: Patient is a 58 male With a PMHx of Dm, PVD, HLD, angina, HTN, and gastritis who presented to the ED for SOB occurring for 2-3 wks. Patient was referred by his Nuclear Plant Instrument Technician to come to the ED. Chest xray showed cardiomegaly and bilateral infiltrates. Chest Ct was ordered which showed patchy bilateral lower lobe infiltrates and atelectasis. Ct abd/pelvis was ordered for distended abdomen. CT abd/pevlis showed no acute intra abdominal pathology and no ascites. Plan: Multifocal Pneumonia 09/23: The WBC continues to decrease, also left shift decreasing as well. Afebrile, the sputum culture negative, atypial culture negative and blood culture negative. He is still reporting coughing and also throat tenderness Chest xray- shows venous congestion, and patchy bibasilar airspace consolidative changes. CT chest: No PE, severe cardiomegaly, diffuse major coronary calcifications, venous congestion changes, Rt Heart failure, multifocal PNA CT abdomen pelvis: no acute abdominal pathology; bilateral patchy infiltrates and atelectasis; 2 inguinal and 1 umbilical hernia Rocephin 1gm IVPB QD Doxycline 100mg PO BID Blood cultures X 24 negative; influenza negative, myco & legionella negative, ; sputum cx pending F/u Dr. Dunbar, Pulm recs Hx of CHF, acute on chronic systolic 09/23: Will repeat the CXRAY portable to compare with admission. Increase Lasix to 40 IV BID. Needs PT/OT evaluation to see how he does walking longer distances Hx of CABG 09/23: Recently had a stress test, no ischemia Currently NSR in the 80s when walking in the room Cardiac enzymes negative, Continue with ASA, Statin, and DM2 ISS; hypoglycemic protocol; ACHS Duloxetine 60mg po q24 jaren Hyponatremia Resolved after lasix HTN Losartan 25mg PO QD Metoprolol 25mg PO QD PAD Cilostazol 50mg po daily Prophylaxis DVT: heparin 5000 sc Q12H GI: Protonix 40mg po hs Diet HHD low CHO
[2018-09-23] MEDS: Pantoprazole 40 mg EC Tab PO SCH (10:02)
[2018-09-23] MEDS: Metoprolol Succinate 25 mg XL Tab PO SCH (10:02)
[2018-09-23] MEDS: Cilostazol 50 mg Tab UD PO SCH (10:06)
[2018-09-23] MEDS: Ranolazine 500 mg Extended Release Tablets PO SCH ×2 (10:06→18:43)
--- NOTE | 2018-09-23 13:57 | CP.PCM.PN ---
Subjective - Date & Time of Evaluation Date of Evaluation: 09/23/18 Time of Evaluation: 11:20 - Subjective Subjective: patient seen and examined Still complaining of cough Afebrile Denies shortness of breath Objective - Vital Signs/Intake and Output Vital Signs (last 24 hours): Temp Pulse Resp BP Pulse Ox 97.6 F 93 H 20 136/79 92 L 09/23/18 07:00 09/23/18 12:11 09/23/18 07:00 09/23/18 10:02 09/23/18 12:11 - Medications Medications: Current Medications Aspirin (Ecotrin) 81 mg PO DAILY [facility] Last Admin: 09/23/18 10:02 Dose: 81 mg Cilostazol (Pletal) 50 mg PO DAILY [facility] Last Admin: 09/23/18 10:06 Dose: 50 mg Dextrose (Dextrose 50% Inj) 0 ml IV STAT PRN; Protocol PRN Reason: Hypoglycemia Protocol Dextrose (Glutose 15) 0 gm PO ONCE PRN; Protocol PRN Reason: Hypoglycemia Protocol Doxycycline Hyclate (Doryx) 100 mg PO Q12H [facility]; Protocol Last Admin: 09/23/18 12:45 Dose: 100 mg Duloxetine HCl (Cymbalta) 60 mg PO Q24H [facility] Last Admin: 09/23/18 13:00 Dose: 60 mg Furosemide (Lasix) 40 mg IVP Q12 [facility] Last Admin: 09/23/18 10:02 Dose: 40 mg Glucagon (Glucagen Diagnostic Kit) 0 mg IM STAT PRN; Protocol PRN Reason: Hypoglycemia Protocol Guaifenesin/Dextromethorphan (Robitussin Dm) 5 ml PO Q4H PRN PRN Reason: Cough Heparin Sodium (Porcine) (Heparin) 5,000 units SC Q12 [facility] Last Admin: 09/23/18 10:02 Dose: 5,000 units Ceftriaxone Sodium 1 gm/ (Sodium Chloride) 100 mls @ 100 mls/hr IVPB Q24H [facility]; Protocol Last Admin: 09/22/18 22:49 Dose: 100 mls/hr Dextrose (Dextrose 5% In Water 1000 Ml) 1,000 mls @ 0 mls/hr IV .Q0M PRN; Protocol PRN Reason: Hypoglycemia Protocol Insulin Human Regular (Novolin R) 0 unit SC ACHS [facility]; Protocol Last Admin: 09/23/18 12:30 Dose: 2 units Losartan Potassium (Cozaar) 25 mg PO DAILY [facility] Last Admin: 09/23/18 10:01 Dose: 25 mg Metoprolol Succinate (Toprol Xl) 25 mg PO DAILY [facility] Last Admin: 09/23/18 10:02 Dose: 25 mg Pantoprazole Sodium (Protonix Ec Tab) 40 mg PO DAILY [facility] Last Admin: 09/23/18 10:02 Dose: 40 mg Ranolazine (Ranexa) 1,000 mg PO BID [facility] Last Admin: 09/23/18 10:06 Dose: 1,000 mg Rosuvastatin Calcium (Crestor) 5 mg PO HS [facility] Last Admin: 09/22/18 21:42 Dose: 5 mg - Labs Labs: 09/23/18 07:21 09/23/18 07:21 PT 13.6 SECONDS (9.7-12.2) H 09/20/18 20:02 INR 1.2 09/20/18 20:02 APTT 35 SECONDS (21-34) H 09/20/18 20:02 - Head Exam Head Exam: ATRAUMATIC, NORMOCEPHALIC - ENT Exam ENT Exam: Mucous Membranes Moist - Neck Exam Neck Exam: Normal Inspection - Respiratory Exam Respiratory Exam: Rales - GI/Abdominal Exam GI & Abdominal Exam: Soft, Normal Bowel Sounds Assessment and Plan (1) Pneumonia Assessment & Plan: continue antibiotics Followup chest x-ray Status: Acute (2) CHF (congestive heart failure) Status: Acute (3) Dyspnea Status: Acute
--- NOTE | 2018-09-23 17:06 | RAD ---
Date of service: 09/23/2018 HISTORY: CHF follow up COMPARISON: Portable chest 09/20/2018. FINDINGS: LUNGS: No interval pulmonary disease appreciated bilaterally. PLEURA: No significant pleural effusion identified, no pneumothorax apparent. CARDIOVASCULAR: No aortic atherosclerotic calcification present. Stable cardiomegaly. Borderline pulmonary vascular congestion. OSSEOUS STRUCTURES: Insert my wires and post CABG changes reiterated. VISUALIZED UPPER ABDOMEN: Normal. OTHER FINDINGS: None. IMPRESSION: No interval infiltrate bilaterally. Borderline pulmonary vascular congestion. Stable cardiomegaly.
[2018-09-24] MEDS: (Novolin R) Insulin Human Regular 100 units/ml vial SC SCH ×4 (07:34→22:20)
--- NOTE | 2018-09-24 08:20 | CP.PCM.PN ---
<Neena Sagastume - Last Filed: 09/24/18 08:18> Subjective - Date & Time of Evaluation Date of Evaluation: 09/24/18 Time of Evaluation: 07:40 - Subjective Subjective: Patient examined at bedside, resting comfortably without O2. Pt reports he doesn't need the oxygen to sleep, only feeling short of breath when ambulating. Reports continued productive cough that disrupts his sleep. Pt continues to have LLQ abdominal pain, worse when standing and moving about. Denies chest pain, nausea, diarrhea. Objective - Vital Signs/Intake and Output Vital Signs (last 24 hours): Temp Pulse Resp BP Pulse Ox 97.3 F L 88 20 125/73 94 L 09/24/18 07:00 09/24/18 07:00 09/24/18 07:00 09/24/18 07:00 09/24/18 07:00 Intake and Output: 09/24/18 09/24/18 06:59 18:59 Intake Total 200 Balance 200 - Medications Medications: Current Medications Aspirin (Ecotrin) 81 mg PO DAILY [facility] Last Admin: 09/23/18 10:02 Dose: 81 mg Cilostazol (Pletal) 50 mg PO DAILY [facility] Last Admin: 09/23/18 10:06 Dose: 50 mg Dextrose (Dextrose 50% Inj) 0 ml IV STAT PRN; Protocol PRN Reason: Hypoglycemia Protocol Dextrose (Glutose 15) 0 gm PO ONCE PRN; Protocol PRN Reason: Hypoglycemia Protocol Doxycycline Hyclate (Doryx) 100 mg PO Q12H [facility]; Protocol Last Admin: 09/23/18 22:57 Dose: 100 mg Duloxetine HCl (Cymbalta) 60 mg PO Q24H [facility] Last Admin: 09/23/18 13:00 Dose: 60 mg Furosemide (Lasix) 40 mg IVP Q12 [facility] Last Admin: 09/23/18 21:35 Dose: 40 mg Glucagon (Glucagen Diagnostic Kit) 0 mg IM STAT PRN; Protocol PRN Reason: Hypoglycemia Protocol Guaifenesin/Dextromethorphan (Robitussin Dm) 5 ml PO Q4H PRN PRN Reason: Cough Heparin Sodium (Porcine) (Heparin) 5,000 units SC Q12 [facility] Last Admin: 09/23/18 21:34 Dose: 5,000 units Ceftriaxone Sodium 1 gm/ (Sodium Chloride) 100 mls @ 100 mls/hr IVPB Q24H [facility]; Protocol Last Admin: 09/23/18 22:57 Dose: 100 mls/hr Dextrose (Dextrose 5% In Water 1000 Ml) 1,000 mls @ 0 mls/hr IV .Q0M PRN; Protocol PRN Reason: Hypoglycemia Protocol Insulin Human Regular (Novolin R) 0 unit SC ACHS [facility]; Protocol Last Admin: 09/24/18 07:34 Dose: Not Given Losartan Potassium (Cozaar) 25 mg PO DAILY [facility] Last Admin: 09/23/18 10:01 Dose: 25 mg Metoprolol Succinate (Toprol Xl) 25 mg PO DAILY [facility] Last Admin: 09/23/18 10:02 Dose: 25 mg Pantoprazole Sodium (Protonix Ec Tab) 40 mg PO DAILY [facility] Last Admin: 09/23/18 10:02 Dose: 40 mg Ranolazine (Ranexa) 1,000 mg PO BID [facility] Last Admin: 09/23/18 18:43 Dose: 1,000 mg Rosuvastatin Calcium (Crestor) 5 mg PO HS [facility] Last Admin: 09/23/18 21:33 Dose: 5 mg - Labs Labs: 09/23/18 07:21 09/23/18 07:21 PT 13.6 SECONDS (9.7-12.2) H 09/20/18 20:02 INR 1.2 09/20/18 20:02 APTT 35 SECONDS (21-34) H 09/20/18 20:02 - Constitutional Appears: Non-toxic, No Acute Distress - Head Exam Head Exam: ATRAUMATIC, NORMAL INSPECTION, NORMOCEPHALIC - Eye Exam Eye Exam: EOMI, Normal appearance - ENT Exam ENT Exam: Mucous Membranes Moist, Normal Exam - Neck Exam Neck Exam: Full ROM, Normal Inspection - Respiratory Exam Respiratory Exam: Rales (b/l rales, R>L), NORMAL BREATHING PATTERN. absent: Respiratory Distress - Cardiovascular Exam Cardiovascular Exam: REGULAR RHYTHM, +S1, +S2. absent: Tachycardia - GI/Abdominal Exam GI & Abdominal Exam: Soft, Tenderness (minimal tenderness to palpation of LLQ), Normal Bowel Sounds - Extremities Exam Extremities Exam: Normal Inspection. absent: Calf Tenderness, Pedal Edema - Neurological Exam Neurological Exam: Alert, Awake, Oriented x3 - Psychiatric Exam Psychiatric exam: Normal Affect, Normal Mood - Skin Skin Exam: Dry, Intact, Normal Color, Warm <Perdue,Peter H - Last Filed: 09/24/18 11:49> Objective - Vital Signs/Intake and Output Vital Signs (last 24 hours): Temp Pulse Resp BP Pulse Ox 97.3 F L 88 20 125/73 94 L 09/24/18 07:00 09/24/18 07:00 09/24/18 07:00 09/24/18 07:00 09/24/18 07:00 Intake and Output: 09/24/18 09/24/18 06:59 18:59 Intake Total 200 Balance 200 - Medications Medications: Current Medications Aspirin (Ecotrin) 81 mg PO DAILY [facility] Last Admin: 09/23/18 10:02 Dose: 81 mg Cilostazol (Pletal) 50 mg PO DAILY [facility] Last Admin: 09/23/18 10:06 Dose: 50 mg Dextrose (Dextrose 50% Inj) 0 ml IV STAT PRN; Protocol PRN Reason: Hypoglycemia Protocol Dextrose (Glutose 15) 0 gm PO ONCE PRN; Protocol PRN Reason: Hypoglycemia Protocol Doxycycline Hyclate (Doryx) 100 mg PO Q12H [facility]; Protocol Last Admin: 09/23/18 22:57 Dose: 100 mg Duloxetine HCl (Cymbalta) 60 mg PO Q24H [facility] Last Admin: 09/23/18 13:00 Dose: 60 mg Furosemide (Lasix) 40 mg IVP Q12 [facility] Last Admin: 09/23/18 21:35 Dose: 40 mg Glucagon (Glucagen Diagnostic Kit) 0 mg IM STAT PRN; Protocol PRN Reason: Hypoglycemia Protocol Guaifenesin/Dextromethorphan (Robitussin Dm) 5 ml PO Q4H PRN PRN Reason: Cough Ceftriaxone Sodium 1 gm/ (Sodium Chloride) 100 mls @ 100 mls/hr IVPB Q24H [facility]; Protocol Last Admin: 09/23/18 22:57 Dose: 100 mls/hr Dextrose (Dextrose 5% In Water 1000 Ml) 1,000 mls @ 0 mls/hr IV .Q0M PRN; Protocol PRN Reason: Hypoglycemia Protocol Insulin Human Regular (Novolin R) 0 unit SC ACHS [facility]; Protocol Last Admin: 09/24/18 07:34 Dose: Not Given Losartan Potassium (Cozaar) 25 mg PO DAILY [facility] Last Admin: 09/23/18 10:01 Dose: 25 mg Metoprolol Succinate (Toprol Xl) 25 mg PO DAILY [facility] Last Admin: 09/23/18 10:02 Dose: 25 mg Pantoprazole Sodium (Protonix Ec Tab) 40 mg PO DAILY [facility] Last Admin: 09/23/18 10:02 Dose: 40 mg Ranolazine (Ranexa) 1,000 mg PO BID [facility] Last Admin: 09/23/18 18:43 Dose: 1,000 mg Rosuvastatin Calcium (Crestor) 5 mg PO HS [facility] Last Admin: 09/23/18 21:33 Dose: 5 mg - Labs Labs: 09/24/18 08:33 09/24/18 08:33 PT 13.6 SECONDS (9.7-12.2) H 09/20/18 20:02 INR 1.2 09/20/18 20:02 APTT 35 SECONDS (21-34) H 09/20/18 20:02 Assessment and Plan - Assessment and Plan (Free Text) Assessment: Assessment: Patient is a 58 male With a PMHx of Dm, PVD, HLD, angina, HTN, and gastritis who presented to the ED for SOB occurring for 2-3 wks. Patient was referred by his Case Resource Manager to come to the ED. Chest xray showed cardiomegaly and bilateral infiltrates. Chest Ct was ordered which showed patchy bilateral lower lobe infiltrates and atelectasis. Ct abd/pelvis was ordered for distended abdomen. CT abd/pevlis showed no acute intra abdominal pathology and no ascites. Plan: Multifocal Pneumonia 09/24: There was + for yeast, the patient is started on Diflucan 100 IV QD 09/23: The WBC continues to decrease, also left shift decreasing as well. Afebrile, the sputum culture negative, atypial culture negative and blood culture negative. He is still reporting coughing and also throat tenderness Chest xray- shows venous congestion, and patchy bibasilar airspace consolidative changes. CT chest: No PE, severe cardiomegaly, diffuse major coronary calcifications, venous congestion changes, Rt Heart failure, multifocal PNA CT abdomen pelvis: no acute abdominal pathology; bilateral patchy infiltrates and atelectasis; 2 inguinal and 1 umbilical hernia Rocephin 1gm IVPB QD Doxycline 100mg PO BID Blood cultures X 24 negative; influenza negative, myco & legionella negative, ; sputum cx pending F/u Samina Ureña recs Hx of CHF, acute on chronic systolic 09/24: He is ambulating slowly without assistance, pending PT evaluation 09/23: Will repeat the CXRAY portable to compare with admission. Increase Lasix to 40 IV BID. Needs PT/OT evaluation to see how he does walking longer distances Hx of CABG 09/23: Recently had a stress test, no ischemia Currently NSR in the 80s when walking in the room Cardiac enzymes negative, Continue with ASA, Statin, and DM2 09/24: He claimed accuchecks were elevated, however recent recorded ones are stable. Will continue to monitor. ISS; hypoglycemic protocol; ACHS Duloxetine 60mg po q24 brianda Hyponatremia Resolved after lasix HTN Losartan 25mg PO QD Metoprolol 25mg PO QD PAD Cilostazol 50mg po daily Prophylaxis DVT: heparin 5000 sc Q12H GI: Protonix 40mg po hs Diet HHD low CHO
[2018-09-24 09:01] LABS: ALB/GLOB RATIO 0.9 (1.0-2.1); ALBUMIN 3.4 g/dL (3.5-5.0); ALT/SGPT 32 U/L (21-72); AST/SGOT 42 U/L (17-59); BLOOD UREA NITROGEN 24 mg/dL (9-20); CALCIUM 8.9 mg/dl (8.6-10.4); GFR NON-AFRICAN AMERICAN > 60
[2018-09-24 09:04] LABS: BASO % 0.3 % (0.0-2.0); EOS # 0.2 K/uL (0.0-0.7); LYMPH # 1.2 K/uL (1.0-4.3); LYMPH % 21.6 % (20.0-40.0); MEAN CORPUSCULAR HEMOGLOBIN 25.4 pg (27.0-31.0); MEAN CORPUSCULAR HGB CONC 32.5 g/dL (33.0-37.0); MEAN PLATELET VOLUME 7.9 fL (7.2-11.7); MONO # 0.7 K/uL (0.0-0.8); MONO % 13.1 % (0.0-10.0); NEUT # 3.3 K/uL (1.8-7.0); NRBC % 0.1 % (0.0-2.0); RBC 4.75 Mil/uL (4.40-5.90); RED CELL DISTRIBUTION WIDTH 17.5 % (11.5-14.5); WHITE BLOOD COUNT 5.4 K/uL (4.8-10.8)
--- NOTE | 2018-09-24 11:23 | CP.PCM.PN ---
Subjective - Date & Time of Evaluation Date of Evaluation: 09/23/18 Time of Evaluation: 14:20 - Subjective Subjective: Patient was seen and examined at bedside. Patient denied any current chest pain, shortness of breath or palpitations. C/O Cough Physical examination - Constitutional Appears: No Acute Distress - Head Exam Head Exam: NORMAL INSPECTION, NORMOCEPHALIC - Eye Exam Eye Exam: EOMI, PERRL Pupil Exam: NORMAL ACCOMODATION - ENT Exam ENT Exam: Mucous Membranes Moist - Respiratory Exam Respiratory Exam: Clear to Ausculation Bilateral, NORMAL BREATHING PATTERN - Cardiovascular Exam Cardiovascular Exam: +S1, +S2 - GI/Abdominal Exam GI & Abdominal Exam: Soft, Normal Bowel Sounds. absent: Distended, Tenderness - Neurological Exam Neurological Exam: Alert, Awake, Oriented x3 - Psychiatric Exam Psychiatric exam: Normal Affect, Normal Mood - Skin Skin Exam: Dry, Intact, Normal Color, Warm Assessment and Plan - Assessment and Plan (Free Text) Plan: Chronic Angina CAD, Diastolic Heart Failure Imaging: - Prior stress tests: no ischemia noted Management: - Continue with medical management for CAD - No additional cardiac work up - DC lasix when breathing improves Pneumonia mgt as per medicine Objective - Vital Signs/Intake and Output Vital Signs (last 24 hours): Temp Pulse Resp BP Pulse Ox 97.3 F L 88 20 125/73 94 L 09/24/18 07:00 09/24/18 07:00 09/24/18 07:00 09/24/18 07:00 09/24/18 07:00 Intake and Output: 09/24/18 09/24/18 06:59 18:59 Intake Total 200 Balance 200 - Medications Medications: Current Medications Aspirin (Ecotrin) 81 mg PO DAILY [facility] Last Admin: 09/23/18 10:02 Dose: 81 mg Cilostazol (Pletal) 50 mg PO DAILY [facility] Last Admin: 09/23/18 10:06 Dose: 50 mg Dextrose (Dextrose 50% Inj) 0 ml IV STAT PRN; Protocol PRN Reason: Hypoglycemia Protocol Dextrose (Glutose 15) 0 gm PO ONCE PRN; Protocol PRN Reason: Hypoglycemia Protocol Doxycycline Hyclate (Doryx) 100 mg PO Q12H [facility]; Protocol Last Admin: 09/23/18 22:57 Dose: 100 mg Duloxetine HCl (Cymbalta) 60 mg PO Q24H [facility] Last Admin: 09/23/18 13:00 Dose: 60 mg Furosemide (Lasix) 40 mg IVP Q12 [facility] Last Admin: 09/23/18 21:35 Dose: 40 mg Glucagon (Glucagen Diagnostic Kit) 0 mg IM STAT PRN; Protocol PRN Reason: Hypoglycemia Protocol Guaifenesin/Dextromethorphan (Robitussin Dm) 5 ml PO Q4H PRN PRN Reason: Cough Ceftriaxone Sodium 1 gm/ (Sodium Chloride) 100 mls @ 100 mls/hr IVPB Q24H [facility]; Protocol Last Admin: 09/23/18 22:57 Dose: 100 mls/hr Dextrose (Dextrose 5% In Water 1000 Ml) 1,000 mls @ 0 mls/hr IV .Q0M PRN; Protocol PRN Reason: Hypoglycemia Protocol Insulin Human Regular (Novolin R) 0 unit SC ACHS [facility]; Protocol Last Admin: 09/24/18 07:34 Dose: Not Given Losartan Potassium (Cozaar) 25 mg PO DAILY [facility] Last Admin: 09/23/18 10:01 Dose: 25 mg Metoprolol Succinate (Toprol Xl) 25 mg PO DAILY [facility] Last Admin: 09/23/18 10:02 Dose: 25 mg Pantoprazole Sodium (Protonix Ec Tab) 40 mg PO DAILY [facility] Last Admin: 09/23/18 10:02 Dose: 40 mg Ranolazine (Ranexa) 1,000 mg PO BID [facility] Last Admin: 09/23/18 18:43 Dose: 1,000 mg Rosuvastatin Calcium (Crestor) 5 mg PO HS [facility] Last Admin: 09/23/18 21:33 Dose: 5 mg - Labs Labs: 09/24/18 08:33 09/24/18 08:33 PT 13.6 SECONDS (9.7-12.2) H 09/20/18 20:02 INR 1.2 09/20/18 20:02 APTT 35 SECONDS (21-34) H 09/20/18 20:02
[2018-09-24] MEDS: Pantoprazole 40 mg EC Tab PO SCH (12:05)
[2018-09-24] MEDS: Metoprolol Succinate 25 mg XL Tab PO SCH (12:05)
[2018-09-24] MEDS: Cilostazol 50 mg Tab UD PO SCH (12:11)
[2018-09-24] MEDS: Ranolazine 500 mg Extended Release Tablets PO SCH ×2 (12:21→17:43)
--- NOTE | 2018-09-24 13:31 | CP.PCM.PN ---
Subjective - Date & Time of Evaluation Date of Evaluation: 09/24/18 Time of Evaluation: 13:23 - Subjective Subjective: Pulmonary Follow up, Covering Dr Dunbar The patient was Seen/interviewed and examined by me at the bedside, Medical records reviewed and Management issues were discussed and formulated with the house staff. Events reviewed Comfortable, pain controlled Afebrile Still complaining of productive cough Denies SOB, chest pain or fever/chills Continue BAntibiotics, Cough syrup, Diuresis and nebulizer treatment. Objective - Vital Signs/Intake and Output Vital Signs (last 24 hours): Temp Pulse Resp BP Pulse Ox 97.3 F L 88 20 137/74 94 L 09/24/18 07:00 09/24/18 07:00 09/24/18 07:00 09/24/18 12:05 09/24/18 07:00 Intake and Output: 09/24/18 09/24/18 06:59 18:59 Intake Total 200 Balance 200 - Medications Medications: Current Medications Aspirin (Ecotrin) 81 mg PO DAILY [facility] Last Admin: 09/24/18 12:05 Dose: 81 mg Cilostazol (Pletal) 50 mg PO DAILY [facility] Last Admin: 09/24/18 12:11 Dose: 50 mg Dextrose (Dextrose 50% Inj) 0 ml IV STAT PRN; Protocol PRN Reason: Hypoglycemia Protocol Dextrose (Glutose 15) 0 gm PO ONCE PRN; Protocol PRN Reason: Hypoglycemia Protocol Doxycycline Hyclate (Doryx) 100 mg PO Q12H [facility]; Protocol Last Admin: 09/24/18 12:11 Dose: 100 mg Duloxetine HCl (Cymbalta) 60 mg PO Q24H [facility] Last Admin: 09/24/18 12:14 Dose: 60 mg Furosemide (Lasix) 40 mg IVP Q12 [facility] Last Admin: 09/24/18 12:05 Dose: 40 mg Glucagon (Glucagen Diagnostic Kit) 0 mg IM STAT PRN; Protocol PRN Reason: Hypoglycemia Protocol Guaifenesin/Dextromethorphan (Robitussin Dm) 5 ml PO Q4H PRN PRN Reason: Cough Ceftriaxone Sodium 1 gm/ (Sodium Chloride) 100 mls @ 100 mls/hr IVPB Q24H [facility]; Protocol Last Admin: 09/23/18 22:57 Dose: 100 mls/hr Dextrose (Dextrose 5% In Water 1000 Ml) 1,000 mls @ 0 mls/hr IV .Q0M PRN; Protocol PRN Reason: Hypoglycemia Protocol Fluconazole (Diflucan Iv 100 Mg/50 Ml Ns) 50 mls @ 100 mls/hr IVPB Q24H [facility]; Protocol Insulin Human Regular (Novolin R) 0 unit SC ACHS [facility]; Protocol Last Admin: 09/24/18 07:34 Dose: Not Given Losartan Potassium (Cozaar) 25 mg PO DAILY [facility] Last Admin: 09/24/18 12:14 Dose: 25 mg Metoprolol Succinate (Toprol Xl) 25 mg PO DAILY [facility] Last Admin: 09/24/18 12:05 Dose: 25 mg Pantoprazole Sodium (Protonix Ec Tab) 40 mg PO DAILY [facility] Last Admin: 09/24/18 12:05 Dose: 40 mg Ranolazine (Ranexa) 1,000 mg PO BID [facility] Last Admin: 09/24/18 12:21 Dose: 1,000 mg Rosuvastatin Calcium (Crestor) 5 mg PO HS [facility] Last Admin: 09/23/18 21:33 Dose: 5 mg - Labs Labs: 09/24/18 08:33 09/24/18 08:33 PT 13.6 SECONDS (9.7-12.2) H 09/20/18 20:02 INR 1.2 09/20/18 20:02 APTT 35 SECONDS (21-34) H 09/20/18 20:02
[2018-09-24] MEDS: Fluconazole IV 100mg/50 ml NS 50 ML IVPB SCH (13:50)
--- NOTE | 2018-09-24 22:47 | CP.PCM.PN ---
Subjective - Date & Time of Evaluation Date of Evaluation: 09/24/18 Time of Evaluation: 10:10 - Subjective Subjective: Patient with improvement in cough and dyspnea Stable CAD Objective - Vital Signs/Intake and Output Vital Signs (last 24 hours): Temp Pulse Resp BP Pulse Ox 97.6 F 76 20 126/76 99 09/24/18 15:00 09/24/18 19:26 09/24/18 15:00 09/24/18 21:31 09/24/18 15:00 Intake and Output: 09/24/18 09/25/18 18:59 06:59 Intake Total 300 Balance 300 - Medications Medications: Current Medications Aspirin (Ecotrin) 81 mg PO DAILY [facility] Last Admin: 09/24/18 12:05 Dose: 81 mg Cilostazol (Pletal) 50 mg PO DAILY [facility] Last Admin: 09/24/18 12:11 Dose: 50 mg Dextrose (Dextrose 50% Inj) 0 ml IV STAT PRN; Protocol PRN Reason: Hypoglycemia Protocol Dextrose (Glutose 15) 0 gm PO ONCE PRN; Protocol PRN Reason: Hypoglycemia Protocol Doxycycline Hyclate (Doryx) 100 mg PO Q12H [facility]; Protocol Last Admin: 09/24/18 12:11 Dose: 100 mg Duloxetine HCl (Cymbalta) 60 mg PO Q24H [facility] Last Admin: 09/24/18 12:14 Dose: 60 mg Furosemide (Lasix) 40 mg IVP Q12 [facility] Last Admin: 09/24/18 21:31 Dose: 40 mg Glucagon (Glucagen Diagnostic Kit) 0 mg IM STAT PRN; Protocol PRN Reason: Hypoglycemia Protocol Guaifenesin/Dextromethorphan (Robitussin Dm) 5 ml PO Q4H PRN PRN Reason: Cough Ceftriaxone Sodium 1 gm/ (Sodium Chloride) 100 mls @ 100 mls/hr IVPB Q24H [facility]; Protocol Last Admin: 09/23/18 22:57 Dose: 100 mls/hr Fluconazole (Diflucan Iv 100 Mg/50 Ml Ns) 50 mls @ 100 mls/hr IVPB Q24H [facility]; Protocol Last Admin: 09/24/18 13:50 Dose: 100 mls/hr Insulin Human Regular (Novolin R) 0 unit SC ACHS [facility]; Protocol Last Admin: 09/24/18 22:20 Dose: Not Given Losartan Potassium (Cozaar) 25 mg PO DAILY [facility] Last Admin: 09/24/18 12:14 Dose: 25 mg Metoprolol Succinate (Toprol Xl) 25 mg PO DAILY [facility] Last Admin: 09/24/18 12:05 Dose: 25 mg Pantoprazole Sodium (Protonix Ec Tab) 40 mg PO DAILY [facility] Last Admin: 09/24/18 12:05 Dose: 40 mg Ranolazine (Ranexa) 1,000 mg PO BID [facility] Last Admin: 09/24/18 17:43 Dose: 1,000 mg Rosuvastatin Calcium (Crestor) 5 mg PO HS [facility] Last Admin: 09/24/18 21:31 Dose: 5 mg - Labs Labs: 09/24/18 08:33 09/24/18 08:33 PT 13.6 SECONDS (9.7-12.2) H 09/20/18 20:02 INR 1.2 09/20/18 20:02 APTT 35 SECONDS (21-34) H 09/20/18 20:02
[2018-09-25 07:46] LABS: BASO % 0.6 % (0.0-2.0); EOS # 0.2 K/uL (0.0-0.7); EOS % 3.7 % (0.0-4.0); HEMOGLOBIN 12.2 g/dL (12.0-18.0); LYMPH # 1.3 K/uL (1.0-4.3); LYMPH % 20.9 % (20.0-40.0); MEAN CELL VOLUME 77.7 fL (80.0-94.0); MEAN CORPUSCULAR HEMOGLOBIN 25.4 pg (27.0-31.0); MEAN CORPUSCULAR HGB CONC 32.6 g/dL (33.0-37.0); MEAN PLATELET VOLUME 7.6 fL (7.2-11.7); MONO # 0.9 K/uL (0.0-0.8); MONO % 14.6 % (0.0-10.0); NEUT # 3.6 K/uL (1.8-7.0); NEUT % 60.2 % (50.0-75.0); NRBC % 0.1 % (0.0-2.0); RBC 4.81 Mil/uL (4.40-5.90); RED CELL DISTRIBUTION WIDTH 17.6 % (11.5-14.5)
[2018-09-25] MEDS: (Novolin R) Insulin Human Regular 100 units/ml vial SC SCH ×4 (08:00→22:52)
[2018-09-25 08:26] LABS: ALB/GLOB RATIO 0.9 (1.0-2.1); ALBUMIN 3.3 g/dL (3.5-5.0); ALT/SGPT 48 U/L (21-72); AST/SGOT 73 U/L (17-59); BLOOD UREA NITROGEN 26 mg/dL (9-20); CALCIUM 8.9 mg/dl (8.6-10.4); GFR NON-AFRICAN AMERICAN > 60
[2018-09-25] MEDS: Pantoprazole 40 mg EC Tab PO SCH (10:24)
[2018-09-25] MEDS: Cilostazol 50 mg Tab UD PO SCH (10:24)
[2018-09-25] MEDS: Ranolazine 500 mg Extended Release Tablets PO SCH ×2 (10:24→17:59)
[2018-09-25] MEDS: Metoprolol Succinate 25 mg XL Tab PO SCH (10:24)
[2018-09-25] MEDS: Fluconazole IV 100mg/50 ml NS 50 ML IVPB SCH (13:36)
--- NOTE | 2018-09-25 18:27 | CP.PCM.PN ---
<Noe Bonilla - Last Filed: 09/25/18 22:23> Subjective - Date & Time of Evaluation Date of Evaluation: 09/25/18 Time of Evaluation: 13:30 - Subjective Subjective: PGY-[address] Randall service Patient is seen and examined by bedside. Patient complains of left lower quadrant pain, stating he is passing gas but the pain remains the same. Patient has reached to GI doctor Ramila about this issue. Patient continues to experience coughing, mostly at night time, but states he feels well in the morning. Patient denies fever, chills, chest pain, shortness of breath, n/v/d/c or urinary complains. Objective - Vital Signs/Intake and Output Vital Signs (last 24 hours): Temp Pulse Resp BP Pulse Ox 98.2 F 84 20 97/64 L 96 09/25/18 15:47 09/25/18 15:47 09/25/18 15:47 09/25/18 15:47 09/25/18 15:47 Intake and Output: 09/25/18 09/25/18 06:59 18:59 Intake Total 500 450 Balance 500 450 - Medications Medications: Current Medications Aspirin (Ecotrin) 81 mg PO DAILY [facility] Last Admin: 09/25/18 10:24 Dose: 81 mg Cilostazol (Pletal) 50 mg PO DAILY [facility] Last Admin: 09/25/18 10:24 Dose: 50 mg Dextrose (Dextrose 50% Inj) 0 ml IV STAT PRN; Protocol PRN Reason: Hypoglycemia Protocol Dextrose (Glutose 15) 0 gm PO ONCE PRN; Protocol PRN Reason: Hypoglycemia Protocol Doxycycline Hyclate (Doryx) 100 mg PO Q12H [facility]; Protocol Last Admin: 09/25/18 12:44 Dose: 100 mg Duloxetine HCl (Cymbalta) 60 mg PO Q24H [facility] Last Admin: 09/25/18 12:44 Dose: 60 mg Furosemide (Lasix) 40 mg IVP Q12 [facility] Last Admin: 09/25/18 10:23 Dose: 40 mg Glucagon (Glucagen Diagnostic Kit) 0 mg IM STAT PRN; Protocol PRN Reason: Hypoglycemia Protocol Guaifenesin/Dextromethorphan (Robitussin Dm) 5 ml PO Q4H PRN PRN Reason: Cough Ceftriaxone Sodium 1 gm/ (Sodium Chloride) 100 mls @ 100 mls/hr IVPB Q24H [facility]; Protocol Last Admin: 09/24/18 22:47 Dose: 100 mls/hr Fluconazole (Diflucan Iv 100 Mg/50 Ml Ns) 50 mls @ 100 mls/hr IVPB Q24H [facility]; Protocol Last Admin: 09/25/18 13:36 Dose: 100 mls/hr Insulin Human Regular (Novolin R) 0 unit SC ACHS [facility]; Protocol Last Admin: 09/25/18 16:53 Dose: Not Given Losartan Potassium (Cozaar) 25 mg PO DAILY [facility] Last Admin: 09/25/18 10:24 Dose: 25 mg Metoprolol Succinate (Toprol Xl) 25 mg PO DAILY [facility] Last Admin: 09/25/18 10:24 Dose: 25 mg Pantoprazole Sodium (Protonix Ec Tab) 40 mg PO DAILY [facility] Last Admin: 09/25/18 10:24 Dose: 40 mg Ranolazine (Ranexa) 1,000 mg PO BID [facility] Last Admin: 09/25/18 17:59 Dose: 1,000 mg Rosuvastatin Calcium (Crestor) 5 mg PO HS [facility] Last Admin: 09/24/18 21:31 Dose: 5 mg - Labs Labs: 09/25/18 07:30 09/25/18 07:30 PT 13.6 SECONDS (9.7-12.2) H 09/20/18 20:02 INR 1.2 09/20/18 20:02 APTT 35 SECONDS (21-34) H 09/20/18 20:02 - Constitutional Appears: Non-toxic, No Acute Distress - Head Exam Head Exam: ATRAUMATIC, NORMAL INSPECTION, NORMOCEPHALIC - Eye Exam Eye Exam: EOMI, Normal appearance, PERRL Pupil Exam: NORMAL ACCOMODATION, PERRL - ENT Exam ENT Exam: Mucous Membranes Moist, Normal Exam - Neck Exam Neck Exam: Normal Inspection - Respiratory Exam Respiratory Exam: Rales, NORMAL BREATHING PATTERN. absent: Accessory Muscle Use, Respiratory Distress - Cardiovascular Exam Cardiovascular Exam: REGULAR RHYTHM, +S1, +S2 - GI/Abdominal Exam GI & Abdominal Exam: Distended, Rigid, Normal Bowel Sounds. absent: Tenderness - Extremities Exam Extremities Exam: Full ROM, Normal Capillary Refill, Normal Inspection. absent: Pedal Edema, Tenderness - Back Exam Back Exam: Full ROM, NORMAL INSPECTION. absent: paraspinal tenderness, rash noted, tenderness - Neurological Exam Neurological Exam: Alert, Awake, CN II-XII Intact, Oriented x3 - Psychiatric Exam Psychiatric exam: Normal Affect, Normal Mood - Skin Skin Exam: Dry, Intact, Normal Color, Warm Assessment and Plan - Assessment and Plan (Free Text) Plan: Multifocal Pneumonia 09/25: WBC- 6.0, continue to remain afebrile. Chest xray- shows venous congestion, and patchy bibasilar airspace consolidative changes. CT chest: No PE, severe cardiomegaly, diffuse major coronary calcifications, venous congestion changes, Rt Heart failure, multifocal PNA CT abdomen pelvis: no acute abdominal pathology; bilateral patchy infiltrates and atelectasis; 2 inguinal and 1 umbilical hernia Blood cultures no growth after 4 days; influenza negative, myco & legionella ne gative Sputum cx positive for yeast infection Patient requested Erika Kirby as pulm specialist. Dr Dunbar no longer on the case -Continue Ceftrioxone and Doxycycline, Bronchodilators as needed, Lasix, Monitor I/O's, Promethazine, Add Breo Ellipta 200/25 mcg 1 P QD Meds: cont Rocephin 1gm IVPB QD cont Doxycline 100mg PO BID cont Fluconazole 100mg IVPB Q24H Abdominal Pain - GI consult - Dr Rome - requested by patient - help is appreciated. Hx of CHF, acute on chronic systolic 09/24: He is ambulating slowly without assistance, pending PT evaluation 09/23: Will repeat the CXRAY portable to compare with admission. Needs PT/OT evaluation to see how he does walking longer distances Meds: Cont lasix 40 mg IVP Q12h Hx of CABG 09/23: Recently had a stress test, no ischemia Currently NSR in the 80s when walking in the room Cardiac enzymes negative, Meds: - ASA 81mg PO daily - Crestor 5mg PO daily - Ranexa 1000mg PO BID DM2 ISS; hypoglycemic protocol; ACHS Duloxetine 60mg po q24 jaren HTN cont Losartan 25mg PO QD cont Metoprolol 25mg PO QD PAD cont Cilostazol 50mg po daily Prophylaxis DVT: heparin 5000 sc Q12H GI: Protonix 40mg po hs Diet HHD low CHO Plan discussed with Dr Prakash Bonilla, PGY-1 <Victoriano Randall - Last Filed: 09/26/18 18:17> Objective - Vital Signs/Intake and Output Vital Signs (last 24 hours): Temp Pulse Resp BP Pulse Ox 98 F 84 20 106/54 L 98 09/26/18 15:35 09/26/18 15:35 09/26/18 15:35 09/26/18 15:35 09/26/18 15:35 - Medications Medications: Current Medications Aspirin (Ecotrin) 81 mg PO DAILY [facility] Last Admin: 09/26/18 10:36 Dose: 81 mg Cilostazol (Pletal) 50 mg PO DAILY [facility] Last Admin: 09/26/18 10:36 Dose: 50 mg Dextrose (Dextrose 50% Inj) 0 ml IV STAT PRN; Protocol PRN Reason: Hypoglycemia Protocol Dextrose (Glutose 15) 0 gm PO ONCE PRN; Protocol PRN Reason: Hypoglycemia Protocol Doxycycline Hyclate (Doryx) 100 mg PO Q12H [facility]; Protocol Last Admin: 09/26/18 12:49 Dose: 100 mg Duloxetine HCl (Cymbalta) 60 mg PO Q24H [facility] Last Admin: 09/26/18 12:50 Dose: 60 mg Fluticasone/Vilanterol (Breo Ellipta 200-25 Mcg Inh) 1 puff INH RQD [facility] Last Admin: 09/26/18 08:00 Dose: Not Given Glucagon (Glucagen Diagnostic Kit) 0 mg IM STAT PRN; Protocol PRN Reason: Hypoglycemia Protocol Guaifenesin/Dextromethorphan (Robitussin Dm) 5 ml PO Q4H PRN PRN Reason: Cough Last Admin: 09/26/18 13:54 Dose: 5 ml Heparin Sodium (Porcine) (Heparin) 5,000 units SC Q12 [facility] Last Admin: 09/26/18 10:34 Dose: 5,000 units Ceftriaxone Sodium 1 gm/ (Sodium Chloride) 100 mls @ 100 mls/hr IVPB Q24H [facility]; Protocol Last Admin: 09/25/18 22:56 Dose: 100 mls/hr Fluconazole (Diflucan Iv 100 Mg/50 Ml Ns) 50 mls @ 100 mls/hr IVPB Q24H [facility]; Protocol Last Admin: 09/26/18 13:55 Dose: 100 mls/hr Insulin Human Regular (Novolin R) 0 unit SC ACHS [facility]; Protocol Last Admin: 09/26/18 12:50 Dose: 4 units Losartan Potassium (Cozaar) 25 mg PO DAILY [facility] Last Admin: 09/26/18 10:36 Dose: 25 mg Magnesium Hydroxide (Milk Of Magnesia) 30 ml PO ONCE ONE Stop: 09/26/18 18:15 Metoprolol Succinate (Toprol Xl) 25 mg PO DAILY [facility] Last Admin: 09/26/18 10:36 Dose: 25 mg Pantoprazole Sodium (Protonix Ec Tab) 40 mg PO DAILY [facility] Last Admin: 09/26/18 10:36 Dose: 40 mg Polyethylene Glycol (Miralax) 17 gm PO BID [facility] Promethazine HCl (Phenergan Syrup) 6.25 mg PO Q6 PRN PRN Reason: Cough Last Admin: 09/25/18 22:22 Dose: 6.25 mg Ranolazine (Ranexa) 1,000 mg PO BID [facility] Last Admin: 09/26/18 10:35 Dose: 1,000 mg Rosuvastatin Calcium (Crestor) 5 mg PO HS [facility] Last Admin: 09/25/18 22:22 Dose: 5 mg - Labs Labs: 09/26/18 07:26 09/26/18 07:26 PT 13.6 SECONDS (9.7-12.2) H 09/20/18 20:02 INR 1.2 09/20/18 20:02 APTT 35 SECONDS (21-34) H 09/20/18 20:02 Attending/Attestation - Attestation I have personally seen and examined this patient.: Yes I have fully participated in the care of the patient.: Yes I have reviewed all pertinent clinical information, including history, physical exam and plan: Yes Notes (Text): seen and examined by me . His breathing is improving c/o of left lower quadrant pain Patient was following Dr Akers as an out patient and he wants to see him we will follow Dr rome's recommendation for hia abdominal pain and continue ceftriaxone and doxycycline d/w resident and I agree with the documentation
--- NOTE | 2018-09-25 20:15 | CP.PCM.PN ---
Subjective - Date & Time of Evaluation Date of Evaluation: 09/25/18 Time of Evaluation: 11:05 - Subjective Subjective: Patient was seen and examined at bedside. C/O cough. Patient denied any current chest pain, shortness of breath or palpitations. Physical examination - Constitutional Appears: No Acute Distress - Head Exam Head Exam: NORMAL INSPECTION, NORMOCEPHALIC - Eye Exam Eye Exam: EOMI, PERRL Pupil Exam: NORMAL ACCOMODATION - ENT Exam ENT Exam: Mucous Membranes Moist - Respiratory Exam Respiratory Exam: Clear to Ausculation Bilateral, NORMAL BREATHING PATTERN - Cardiovascular Exam Cardiovascular Exam: +S1, +S2 - GI/Abdominal Exam GI & Abdominal Exam: Soft, Normal Bowel Sounds. absent: Distended, Tenderness - Neurological Exam Neurological Exam: Alert, Awake, Oriented x3 - Psychiatric Exam Psychiatric exam: Normal Affect, Normal Mood - Skin Skin Exam: Dry, Intact, Normal Color, Warm Assessment and Plan - Assessment and Plan (Free Text) Plan: Chronic Angina CAD, Diastolic Heart Failure Imaging: - Prior stress tests: no ischemia noted Management: - Continue with medical management for CAD - No additional cardiac work up - DC lasix when breathing improves Pneumonia mgt as per medicine Objective - Vital Signs/Intake and Output Vital Signs (last 24 hours): Temp Pulse Resp BP Pulse Ox 98.2 F 84 20 97/64 L 96 09/25/18 15:47 09/25/18 15:47 09/25/18 15:47 09/25/18 15:47 09/25/18 15:47 Intake and Output: 09/25/18 09/26/18 18:59 06:59 Intake Total 450 Balance 450 - Medications Medications: Current Medications Aspirin (Ecotrin) 81 mg PO DAILY [facility] Last Admin: 09/25/18 10:24 Dose: 81 mg Cilostazol (Pletal) 50 mg PO DAILY [facility] Last Admin: 09/25/18 10:24 Dose: 50 mg Dextrose (Dextrose 50% Inj) 0 ml IV STAT PRN; Protocol PRN Reason: Hypoglycemia Protocol Dextrose (Glutose 15) 0 gm PO ONCE PRN; Protocol PRN Reason: Hypoglycemia Protocol Doxycycline Hyclate (Doryx) 100 mg PO Q12H [facility]; Protocol Last Admin: 09/25/18 12:44 Dose: 100 mg Duloxetine HCl (Cymbalta) 60 mg PO Q24H [facility] Last Admin: 09/25/18 12:44 Dose: 60 mg Furosemide (Lasix) 40 mg IVP Q12 [facility] Last Admin: 09/25/18 10:23 Dose: 40 mg Glucagon (Glucagen Diagnostic Kit) 0 mg IM STAT PRN; Protocol PRN Reason: Hypoglycemia Protocol Guaifenesin/Dextromethorphan (Robitussin Dm) 5 ml PO Q4H PRN PRN Reason: Cough Ceftriaxone Sodium 1 gm/ (Sodium Chloride) 100 mls @ 100 mls/hr IVPB Q24H [facility]; Protocol Last Admin: 09/24/18 22:47 Dose: 100 mls/hr Fluconazole (Diflucan Iv 100 Mg/50 Ml Ns) 50 mls @ 100 mls/hr IVPB Q24H [facility]; Protocol Last Admin: 09/25/18 13:36 Dose: 100 mls/hr Insulin Human Regular (Novolin R) 0 unit SC ACHS [facility]; Protocol Last Admin: 09/25/18 16:53 Dose: Not Given Losartan Potassium (Cozaar) 25 mg PO DAILY [facility] Last Admin: 09/25/18 10:24 Dose: 25 mg Metoprolol Succinate (Toprol Xl) 25 mg PO DAILY [facility] Last Admin: 09/25/18 10:24 Dose: 25 mg Pantoprazole Sodium (Protonix Ec Tab) 40 mg PO DAILY [facility] Last Admin: 09/25/18 10:24 Dose: 40 mg Ranolazine (Ranexa) 1,000 mg PO BID [facility] Last Admin: 09/25/18 17:59 Dose: 1,000 mg Rosuvastatin Calcium (Crestor) 5 mg PO HS [facility] Last Admin: 09/24/18 21:31 Dose: 5 mg - Labs Labs: 09/25/18 07:30 09/25/18 07:30 PT 13.6 SECONDS (9.7-12.2) H 09/20/18 20:02 INR 1.2 09/20/18 20:02 APTT 35 SECONDS (21-34) H 09/20/18 20:02
--- NOTE | 2018-09-25 20:38 | CP.PCM.CON ---
History of Present Illness - History of Present Illness History of Present Illness: 58 y/o male known to me with PMHx of asthma, GASTON, CHF, HTN, DM is admitted to hospital for Pneumonia. Pt reports to be improving slowly and reports persistent cough. He is afebrile Review of Systems - Review of Systems All systems: reviewed and no additional remarkable complaints except (See HPI) Past Patient History - Infectious Disease Hx of Infectious Diseases: None - Past Medical History & Family History Past Medical History?: Yes - Past Social History Smoking Status: Never Smoked - CARDIAC Hx Hypertension: Yes - PULMONARY Hx Pneumonia: Yes - NEUROLOGICAL Hx Neurological Disorder: No - HEENT Hx HEENT Problems: No - RENAL Hx Chronic Kidney Disease: No - ENDOCRINE/METABOLIC Hx Endocrine Disorders: Yes Hx Diabetes Mellitus Type 2: Yes - HEMATOLOGICAL/ONCOLOGICAL Hx Anemia: Yes - INTEGUMENTARY Hx Dermatological Problems: No - MUSCULOSKELETAL/RHEUMATOLOGICAL Hx Musculoskeletal Disorders: No Hx Falls: No - GASTROINTESTINAL Hx Gastritis: Yes - GENITOURINARY/GYNECOLOGICAL Hx Genitourinary Disorders: No - PSYCHIATRIC Hx Depression: Yes Hx Substance Use: No - SURGICAL HISTORY Hx Coronary Artery Bypass Graft: Yes (2003) Hx Coronary Stent: Yes (2010) - ANESTHESIA Hx Anesthesia: Yes Hx Anesthesia Reactions: No Hx Malignant Hyperthermia: No Meds Allergies/Adverse Reactions: Allergies Allergy/AdvReac Type Severity Reaction Status Date / Time No Known Allergies Allergy Verified 08/17/16 19:40 - Medications Medications: Current Medications Aspirin (Ecotrin) 81 mg PO DAILY [facility] Last Admin: 09/25/18 10:24 Dose: 81 mg Cilostazol (Pletal) 50 mg PO DAILY [facility] Last Admin: 09/25/18 10:24 Dose: 50 mg Dextrose (Dextrose 50% Inj) 0 ml IV STAT PRN; Protocol PRN Reason: Hypoglycemia Protocol Dextrose (Glutose 15) 0 gm PO ONCE PRN; Protocol PRN Reason: Hypoglycemia Protocol Doxycycline Hyclate (Doryx) 100 mg PO Q12H [facility]; Protocol Last Admin: 09/25/18 12:44 Dose: 100 mg Duloxetine HCl (Cymbalta) 60 mg PO Q24H [facility] Last Admin: 09/25/18 12:44 Dose: 60 mg Furosemide (Lasix) 40 mg IVP Q12 [facility] Last Admin: 09/25/18 10:23 Dose: 40 mg Glucagon (Glucagen Diagnostic Kit) 0 mg IM STAT PRN; Protocol PRN Reason: Hypoglycemia Protocol Guaifenesin/Dextromethorphan (Robitussin Dm) 5 ml PO Q4H PRN PRN Reason: Cough Ceftriaxone Sodium 1 gm/ (Sodium Chloride) 100 mls @ 100 mls/hr IVPB Q24H [facility]; Protocol Last Admin: 09/24/18 22:47 Dose: 100 mls/hr Fluconazole (Diflucan Iv 100 Mg/50 Ml Ns) 50 mls @ 100 mls/hr IVPB Q24H [facility]; Protocol Last Admin: 09/25/18 13:36 Dose: 100 mls/hr Insulin Human Regular (Novolin R) 0 unit SC ACHS [facility]; Protocol Last Admin: 09/25/18 16:53 Dose: Not Given Losartan Potassium (Cozaar) 25 mg PO DAILY [facility] Last Admin: 09/25/18 10:24 Dose: 25 mg Metoprolol Succinate (Toprol Xl) 25 mg PO DAILY [facility] Last Admin: 09/25/18 10:24 Dose: 25 mg Pantoprazole Sodium (Protonix Ec Tab) 40 mg PO DAILY [facility] Last Admin: 09/25/18 10:24 Dose: 40 mg Ranolazine (Ranexa) 1,000 mg PO BID [facility] Last Admin: 09/25/18 17:59 Dose: 1,000 mg Rosuvastatin Calcium (Crestor) 5 mg PO HS [facility] Last Admin: 09/24/18 21:31 Dose: 5 mg Physical Exam - Head Exam Head Exam: NORMAL INSPECTION - Eye Exam Eye Exam: Normal appearance - ENT Exam ENT Exam: Mucous Membranes Moist - Respiratory Exam Respiratory Exam: Rhonchi - Cardiovascular Exam Cardiovascular Exam: REGULAR RHYTHM, +S1, +S2 - GI/Abdominal Exam GI & Abdominal Exam: Normal Bowel Sounds, Soft - Extremities Exam Extremities exam: Positive for: normal inspection - Neurological Exam Neurological exam: Alert, Oriented x3 Results - Vital Signs Recent Vital Signs: Last Vital Signs Temp 98.2 F 09/25/18 15:47 Pulse 84 09/25/18 15:47 Resp 20 09/25/18 15:47 BP 97/64 L 09/25/18 15:47 Pulse Ox 96 09/25/18 15:47 - Labs Result Diagrams: 09/25/18 07:30 09/25/18 07:30 Labs: Laboratory Results - last 24 hr 09/24/18 09/25/1818 21:20 06:04 07:30 WBC 6.0 RBC 4.81 Hgb 12.2 Hct 37.4 MCV 77.7 L MCH 25.4 L MCHC 32.6 L RDW 17.6 H Plt Count 243 MPV 7.6 Neut % (Auto) 60.2 Lymph % (Auto) 20.9 [place] % (Auto) 14.6 H Eos % (Auto) 3.7 Baso % (Auto) 0.6 Neut # (Auto) 3.6 Lymph # (Auto) 1.3 [place] # (Auto) 0.9 H Eos # (Auto) 0.2 Baso # (Auto) 0.0 Sodium Potassium Chloride Carbon Dioxide Anion Gap BUN Creatinine Est GFR ( Amer) Est GFR (Non-Af Amer) POC Glucose (mg/dL) 193 H 95 Random Glucose Calcium Total Bilirubin AST ALT Alkaline Phosphatase Total Protein Albumin Globulin Albumin/Globulin Ratio 09/25/18 09/25/18 09/25/18 07:30 11:21 16:17 WBC RBC Hgb Hct MCV MCH MCHC RDW Plt Count MPV Neut % (Auto) Lymph % (Auto) [place] % (Auto) Eos % (Auto) Baso % (Auto) Neut # (Auto) Lymph # (Auto) [place] # (Auto) Eos # (Auto) Baso # (Auto) Sodium 132 Potassium 3.7 Chloride 93 L Carbon Dioxide 29 Anion Gap 14 BUN 26 H Creatinine 0.8 Est GFR ( Amer) > 60 Est GFR (Non-Af Amer) > 60 POC Glucose (mg/dL) 199 H 150 H Random Glucose 100 Calcium 8.9 Total Bilirubin 0.9 AST 73 H D ALT 48 Alkaline Phosphatase 87 Total Protein 7.0 Albumin 3.3 L Globulin 3.7 Albumin/Globulin Ratio 0.9 L Assessment & Plan (1) Asthma Status: Acute (2) CHF (congestive heart failure) Status: Acute (3) Dyspnea Status: Acute (4) Pneumonia Status: Acute - Assessment and Plan (Free Text) Plan: Continue Ceftrioxone and Doxycycline Bronchodilators as needed Lasix Monitor I/O's Promethazine Add Breo Ellipta 200/25 mcg 1 P QD
[2018-09-25] MEDS: Promethazine 6.25 MG/5 ML CUP PO PRN (22:22)
[2018-09-26 07:36] LABS: BASO # 0.1 K/uL (0.0-0.2); BASO % 0.8 % (0.0-2.0); EOS # 0.3 K/uL (0.0-0.7); EOS % 4.5 % (0.0-4.0); HEMOGLOBIN 12.4 g/dL (12.0-18.0); LYMPH # 1.4 K/uL (1.0-4.3); MEAN CELL VOLUME 78.6 fL (80.0-94.0); MEAN CORPUSCULAR HEMOGLOBIN 25.4 pg (27.0-31.0); MEAN CORPUSCULAR HGB CONC 32.3 g/dL (33.0-37.0); MEAN PLATELET VOLUME 7.7 fL (7.2-11.7); MONO # 0.9 K/uL (0.0-0.8); MONO % 14.4 % (0.0-10.0); NEUT # 3.6 K/uL (1.8-7.0); NEUT % 57.3 % (50.0-75.0); NRBC % 0.1 % (0.0-2.0); RBC 4.9 Mil/uL (4.40-5.90); RED CELL DISTRIBUTION WIDTH 17.8 % (11.5-14.5); WHITE BLOOD COUNT 6.2 K/uL (4.8-10.8)
[2018-09-26 07:51] VITALS: RESP 20
[2018-09-26] MEDS: (Novolin R) Insulin Human Regular 100 units/ml vial SC SCH ×4 (07:58→22:08)
[2018-09-26] MEDS: Fluticasone-Vilanterol 200/25mcg Diskus INH SCH (08:00)
[2018-09-26 08:15] LABS: ALB/GLOB RATIO 0.9 (1.0-2.1); ALBUMIN 3.3 g/dL (3.5-5.0); ALT/SGPT 59 U/L (21-72); AST/SGOT 61 U/L (17-59); BLOOD UREA NITROGEN 27 mg/dL (9-20); GFR NON-AFRICAN AMERICAN > 60
[2018-09-26] MEDS: Ranolazine 500 mg Extended Release Tablets PO SCH ×2 (10:35→18:22)
[2018-09-26] MEDS: Pantoprazole 40 mg EC Tab PO SCH (10:36)
[2018-09-26] MEDS: Cilostazol 50 mg Tab UD PO SCH (10:36)
[2018-09-26] MEDS: Metoprolol Succinate 25 mg XL Tab PO SCH (10:36)
--- NOTE | 2018-09-26 11:00 | CP.PCM.CON ---
History of Present Illness - History of Present Illness History of Present Illness: This is a 58 year old man who was admitted 09/20/18 for shortness of breath and cough attributed to pneumonia. GI consulted for abdominal pain. Patient is known to me from the office. He has had LLQ abdominal pain for the past four years. Multiple diagnostic tests have been performed. For example, CT scan of the abdomen and pelvis has been done on the following dates: 07/26/14, 05/26/15, 03/26/16, 01/28/17, 11/08/17. Findings have included lung nodules, diverticulosis and fat-containing inguinal hernias. Barium enema 04/20/17 showed no significant abnormalities. In addition, endoscopic work up consisted of: 1) colonoscopy 04/19/16 which showed hemorrhoids but no other abnormalities; and 2). EGD 11/15/16 which showed esophageal candidiasis, hiatal hernia, and erosive gastritis. UGI series with SBFT 02/20/2018 showed hiatal hernia, mild reflux, gastritis. MRI 05/16/18 showed degenerative changes involving the lumbar spine, SI joints and hip joints, along with fecal stasis. Patient continues to complain of localized LLQ pain, daily, which improves when he passes gas. He has occasional difficulty swallowing solid food. He denies having heartburn, loss of appetite, loss of weight. He has been nauseated since his admission to the hospital. He denies having constipation, diarrhea and rectal bleeding. Review of Systems - Review of Systems All systems: reviewed and no additional remarkable complaints except - Constitutional Constitutional: absent: Chills, Fever - EENT Eyes: absent: Change in Vision - Cardiovascular Cardiovascular: Chest Pain, Dyspnea. absent: Palpitations - Respiratory Respiratory: Cough, Dyspnea. absent: Wheezing - Gastrointestinal Gastrointestinal: Abdominal Pain, Dysphagia, Nausea, Vomiting. absent: Constipation, Diarrhea, Heartburn, Hematochezia - Genitourinary Genitourinary: absent: Dysuria - Integumentary Integumentary: absent: Rash Past Patient History - Infectious Disease Hx of Infectious Diseases: None - Past Medical History & Family History Past Medical History?: Yes - Past Social History Smoking Status: Never Smoked - CARDIAC Hx Hypertension: Yes - PULMONARY Hx Pneumonia: Yes - NEUROLOGICAL Hx Neurological Disorder: No - HEENT Hx HEENT Problems: No - RENAL Hx Chronic Kidney Disease: No - ENDOCRINE/METABOLIC Hx Endocrine Disorders: Yes Hx Diabetes Mellitus Type 2: Yes - HEMATOLOGICAL/ONCOLOGICAL Hx Anemia: Yes - INTEGUMENTARY Hx Dermatological Problems: No - MUSCULOSKELETAL/RHEUMATOLOGICAL Hx Musculoskeletal Disorders: No Hx Falls: No - GASTROINTESTINAL Hx Gastritis: Yes - GENITOURINARY/GYNECOLOGICAL Hx Genitourinary Disorders: No - PSYCHIATRIC Hx Depression: Yes Hx Substance Use: No - SURGICAL HISTORY Hx Coronary Artery Bypass Graft: Yes (2003) Hx Coronary Stent: Yes (2010) - ANESTHESIA Hx Anesthesia: Yes Hx Anesthesia Reactions: No Hx Malignant Hyperthermia: No Meds Allergies/Adverse Reactions: Allergies Allergy/AdvReac Type Severity Reaction Status Date / Time No Known Allergies Allergy Verified 08/17/16 19:40 - Medications Medications: Current Medications Aspirin (Ecotrin) 81 mg PO DAILY [facility] Last Admin: 09/26/18 10:36 Dose: 81 mg Cilostazol (Pletal) 50 mg PO DAILY [facility] Last Admin: 09/26/18 10:36 Dose: 50 mg Dextrose (Dextrose 50% Inj) 0 ml IV STAT PRN; Protocol PRN Reason: Hypoglycemia Protocol Dextrose (Glutose 15) 0 gm PO ONCE PRN; Protocol PRN Reason: Hypoglycemia Protocol Doxycycline Hyclate (Doryx) 100 mg PO Q12H [facility]; Protocol Last Admin: 09/25/18 22:56 Dose: 100 mg Duloxetine HCl (Cymbalta) 60 mg PO Q24H [facility] Last Admin: 09/25/18 12:44 Dose: 60 mg Fluticasone/Vilanterol (Breo Ellipta 200-25 Mcg Inh) 1 puff INH RQD [facility] Furosemide (Lasix) 40 mg IVP Q12 [facility] Last Admin: 09/26/18 10:34 Dose: 40 mg Glucagon (Glucagen Diagnostic Kit) 0 mg IM STAT PRN; Protocol PRN Reason: Hypoglycemia Protocol Guaifenesin/Dextromethorphan (Robitussin Dm) 5 ml PO Q4H PRN PRN Reason: Cough Heparin Sodium (Porcine) (Heparin) 5,000 units SC Q12 [facility] Last Admin: 09/26/18 10:34 Dose: 5,000 units Ceftriaxone Sodium 1 gm/ (Sodium Chloride) 100 mls @ 100 mls/hr IVPB Q24H [facility]; Protocol Last Admin: 09/25/18 22:56 Dose: 100 mls/hr Fluconazole (Diflucan Iv 100 Mg/50 Ml Ns) 50 mls @ 100 mls/hr IVPB Q24H [facility]; Protocol Last Admin: 09/25/18 13:36 Dose: 100 mls/hr Insulin Human Regular (Novolin R) 0 unit SC ACHS [facility]; Protocol Last Admin: 09/26/18 07:58 Dose: Not Given Losartan Potassium (Cozaar) 25 mg PO DAILY [facility] Last Admin: 09/26/18 10:36 Dose: 25 mg Metoprolol Succinate (Toprol Xl) 25 mg PO DAILY [facility] Last Admin: 09/26/18 10:36 Dose: 25 mg Pantoprazole Sodium (Protonix Ec Tab) 40 mg PO DAILY [facility] Last Admin: 09/26/18 10:36 Dose: 40 mg Promethazine HCl (Phenergan Syrup) 6.25 mg PO Q6 PRN PRN Reason: Cough Last Admin: 09/25/18 22:22 Dose: 6.25 mg Ranolazine (Ranexa) 1,000 mg PO BID [facility] Last Admin: 09/26/18 10:35 Dose: 1,000 mg Rosuvastatin Calcium (Crestor) 5 mg PO HS [facility] Last Admin: 09/25/18 22:22 Dose: 5 mg Physical Exam - Constitutional Appears: No Acute Distress - Head Exam Head Exam: ATRAUMATIC, NORMOCEPHALIC - Eye Exam Eye Exam: EOMI, PERRL - Neck Exam Neck exam: Negative for: Lymphadenopathy, Thyromegaly - Respiratory Exam Respiratory Exam: NORMAL BREATHING PATTERN. absent: Rales, Rhonchi, Wheezes - Cardiovascular Exam Cardiovascular Exam: REGULAR RHYTHM, +S1, +S2. absent: Gallop, Rubs, Systolic Murmur - GI/Abdominal Exam GI & Abdominal Exam: Normal Bowel Sounds, Soft. absent: Mass, Organomegaly, Tenderness - Rectal Exam Rectal Exam: Deferred - Extremities Exam Extremities exam: Negative for: calf tenderness, pedal edema Results - Vital Signs Recent Vital Signs: Last Vital Signs Temp 98 F 09/26/18 07:50 Pulse 89 09/26/18 07:50 Resp 20 09/26/18 07:50 BP 131/68 09/26/18 10:34 Pulse Ox 95 09/26/18 07:50 - Labs Result Diagrams: 09/26/18 07:26 09/26/18 07:26 Labs: Laboratory Results - last 24 hr 09/25/18 09/25/18 09/25/18 11:21 16:17 21:33 WBC RBC Hgb Hct MCV MCH MCHC RDW Plt Count MPV Neut % (Auto) Lymph % (Auto) [place] % (Auto) Eos % (Auto) Baso % (Auto) Neut # (Auto) Lymph # (Auto) [place] # (Auto) Eos # (Auto) Baso # (Auto) Sodium Potassium Chloride Carbon Dioxide Anion Gap BUN Creatinine Est GFR ( Amer) Est GFR (Non-Af Amer) POC Glucose (mg/dL) 199 H 150 H 154 H Random Glucose Calcium Total Bilirubin AST ALT Alkaline Phosphatase Total Protein Albumin Globulin Albumin/Globulin Ratio 09/26/18 09/26/18 09/26/18 06:07 07:26 07:26 WBC 6.2 RBC 4.90 Hgb 12.4 Hct 38.5 MCV 78.6 L MCH 25.4 L MCHC 32.3 L RDW 17.8 H Plt Count 236 MPV 7.7 Neut % (Auto) 57.3 Lymph % (Auto) 23.0 [place] % (Auto) 14.4 H Eos % (Auto) 4.5 H Baso % (Auto) 0.8 Neut # (Auto) 3.6 Lymph # (Auto) 1.4 [place] # (Auto) 0.9 H Eos # (Auto) 0.3 Baso # (Auto) 0.1 Sodium 131 L Potassium 3.8 Chloride 95 L Carbon Dioxide 30 Anion Gap 9 L BUN 27 H Creatinine 0.8 Est GFR ( Amer) > 60 Est GFR (Non-Af Amer) > 60 POC Glucose (mg/dL) 98 Random Glucose 99 Calcium 9.0 Total Bilirubin 0.8 AST 61 H ALT 59 Alkaline Phosphatase 83 Total Protein 7.0 Albumin 3.3 L Globulin 3.7 Albumin/Globulin Ratio 0.9 L Assessment & Plan (1) LLQ abdominal pain Assessment and Plan: Patient has chronic LLQ pain the etiology of which remains unclear even after an extensive diagnostic work-up. Multiple CT scans have shown diverticulosis, but colonoscopy and barium enema did not. No other relevant pathology has been found with EGD, UGI/SBFT, MRI. Will order CT angiogram to rule out mesenteric ischemia. Status: Acute
--- NOTE | 2018-09-26 13:11 | CP.PCM.PN ---
<Noe Bonilla - Last Filed: 09/26/18 18:19> Subjective - Date & Time of Evaluation Date of Evaluation: 09/26/18 Time of Evaluation: 09:35 - Subjective Subjective: PGY-[address] Randall Patient is seen and examined sitting in bed. Patient states feeling well today. Admits to improvement of shortness of breath and coughing. States he is coughing less at night time. Patient is not short of breath when walking to bathroom, but have not walk longer distances. Patient continues to complain of left lower quadrant pain, that is worst when sitting down. Patient continues to pass gas, and is having normal bowel movement and no urinary symptoms. Denies fever, chills, chest pain, shortness of breath, n/v/d/c, dizziness, headaches or urinary symptoms. Objective - Vital Signs/Intake and Output Vital Signs (last 24 hours): Temp Pulse Resp BP Pulse Ox 98 F 89 20 131/68 95 09/26/18 07:50 09/26/18 07:50 09/26/18 07:50 09/26/18 10:34 09/26/18 07:50 - Medications Medications: Current Medications Aspirin (Ecotrin) 81 mg PO DAILY [facility] Last Admin: 09/26/18 10:36 Dose: 81 mg Cilostazol (Pletal) 50 mg PO DAILY [facility] Last Admin: 09/26/18 10:36 Dose: 50 mg Dextrose (Dextrose 50% Inj) 0 ml IV STAT PRN; Protocol PRN Reason: Hypoglycemia Protocol Dextrose (Glutose 15) 0 gm PO ONCE PRN; Protocol PRN Reason: Hypoglycemia Protocol Doxycycline Hyclate (Doryx) 100 mg PO Q12H [facility]; Protocol Last Admin: 09/26/18 12:49 Dose: 100 mg Duloxetine HCl (Cymbalta) 60 mg PO Q24H [facility] Last Admin: 09/26/18 12:50 Dose: 60 mg Fluticasone/Vilanterol (Breo Ellipta 200-25 Mcg Inh) 1 puff INH RQD [facility] Last Admin: 09/26/18 08:00 Dose: Not Given Furosemide (Lasix) 40 mg IVP Q12 [facility] Last Admin: 09/26/18 10:34 Dose: 40 mg Glucagon (Glucagen Diagnostic Kit) 0 mg IM STAT PRN; Protocol PRN Reason: Hypoglycemia Protocol Guaifenesin/Dextromethorphan (Robitussin Dm) 5 ml PO Q4H PRN PRN Reason: Cough Heparin Sodium (Porcine) (Heparin) 5,000 units SC Q12 [facility] Last Admin: 09/26/18 10:34 Dose: 5,000 units Ceftriaxone Sodium 1 gm/ (Sodium Chloride) 100 mls @ 100 mls/hr IVPB Q24H [facility]; Protocol Last Admin: 09/25/18 22:56 Dose: 100 mls/hr Fluconazole (Diflucan Iv 100 Mg/50 Ml Ns) 50 mls @ 100 mls/hr IVPB Q24H [facility]; Protocol Last Admin: 09/25/18 13:36 Dose: 100 mls/hr Insulin Human Regular (Novolin R) 0 unit SC ACHS [facility]; Protocol Last Admin: 09/26/18 12:50 Dose: 4 units Losartan Potassium (Cozaar) 25 mg PO DAILY [facility] Last Admin: 09/26/18 10:36 Dose: 25 mg Metoprolol Succinate (Toprol Xl) 25 mg PO DAILY [facility] Last Admin: 09/26/18 10:36 Dose: 25 mg Pantoprazole Sodium (Protonix Ec Tab) 40 mg PO DAILY [facility] Last Admin: 09/26/18 10:36 Dose: 40 mg Promethazine HCl (Phenergan Syrup) 6.25 mg PO Q6 PRN PRN Reason: Cough Last Admin: 09/25/18 22:22 Dose: 6.25 mg Ranolazine (Ranexa) 1,000 mg PO BID [facility] Last Admin: 09/26/18 10:35 Dose: 1,000 mg Rosuvastatin Calcium (Crestor) 5 mg PO HS [facility] Last Admin: 09/25/18 22:22 Dose: 5 mg - Labs Labs: 09/26/18 07:26 09/26/18 07:26 PT 13.6 SECONDS (9.7-12.2) H 09/20/18 20:02 INR 1.2 09/20/18 20:02 APTT 35 SECONDS (21-34) H 09/20/18 20:02 - Constitutional Appears: Well, Non-toxic, No Acute Distress - Head Exam Head Exam: ATRAUMATIC, NORMAL INSPECTION, NORMOCEPHALIC - Eye Exam Eye Exam: EOMI, Normal appearance - ENT Exam ENT Exam: Mucous Membranes Moist, Normal Exam - Neck Exam Neck Exam: Full ROM, Normal Inspection. absent: Lymphadenopathy - Respiratory Exam Respiratory Exam: Clear to Ausculation Bilateral, NORMAL BREATHING PATTERN. absent: Accessory Muscle Use, Rales, Rhonchi, Wheezes, Respiratory Distress - Cardiovascular Exam Cardiovascular Exam: REGULAR RHYTHM, +S1, +S2 - GI/Abdominal Exam GI & Abdominal Exam: Distended, Soft, Tenderness (left lower quadrant with deep palpation ), Normal Bowel Sounds. absent: Guarding, Organomegaly, Rebound - Extremities Exam Extremities Exam: Full ROM, Normal Inspection. absent: Joint Swelling, Pedal Edema, Tenderness - Back Exam Back Exam: Full ROM, NORMAL INSPECTION. absent: tenderness - Neurological Exam Neurological Exam: Alert, Awake, Oriented x3 - Psychiatric Exam Psychiatric exam: Normal Affect, Normal Mood - Skin Skin Exam: Dry, Intact, Normal Color, Warm Assessment and Plan - Assessment and Plan (Free Text) Plan: Multifocal Pneumonia 09/25: WBC- 6.0, continue to remain afebrile. Chest xray- shows venous congestion, and patchy bibasilar airspace consolidative changes. CT chest: No PE, severe cardiomegaly, diffuse major coronary calcifications, venous congestion changes, Rt Heart failure, multifocal PNA CT abdomen pelvis: no acute abdominal pathology; bilateral patchy infiltrates and atelectasis; 2 inguinal and 1 umbilical hernia Blood cultures no growth after 4 days; influenza negative, myco & legionella negative Sputum cx positive for yeast infection Patient requested Erika Kirby as pulm specialist. Dr Dunbar no longer on the case -Continue Ceftrioxone and Doxycycline, Bronchodilators as needed, Monitor I/O's, Promethazine, Add Breo Ellipta 200/25 mcg 1 P QD Meds: cont Rocephin 1gm IVPB QD cont Doxycline 100mg PO BID cont Fluconazole 100mg IVPB Q24H Will follow Dr Akers recommendations to potentially d/c patient tomorrow with PO antibiotics Abdominal Pain - GI consult - Dr Mcgrath - requested by patient Unclear diagnosis. Multiple CT scans have shown diverticulosis, but colonoscopy and barium enema did not. No other relevant pathology has been found with EGD, UGI/SBFT, MRI. CT angiogram ordered to rule out mesenteric ischemia. - Will follow CT angio tomorrow - f/u with gurinder regarding plans for patient to be d/c. Hx of CHF, acute on chronic systolic 09/24: He is ambulating slowly without assistance, pending PT evaluation 09/23: Will repeat the CXRAY portable to compare with admission. PT/OT evaluation to see how he does walking longer distances Hx of CABG 09/23: Recently had a stress test, no ischemia Currently NSR in the 80s when walking in the room Cardiac enzymes negative, Meds: - ASA 81mg PO daily - Crestor 5mg PO daily - Ranexa 1000mg PO BID DM2 ISS; hypoglycemic protocol; ACHS Duloxetine 60mg po q24 [facility] HTN cont Losartan 25mg PO QD cont Metoprolol 25mg PO QD PAD cont Cilostazol 50mg po daily Prophylaxis DVT: heparin 5000 sc Q12H GI: Protonix 40mg po hs Diet HHD low CHO Plan discussed with Dr Prakash Bonilla, PGY-1 <Victoriano Randall - Last Filed: 09/27/18 09:16> Objective - Vital Signs/Intake and Output Vital Signs (last 24 hours): Temp Pulse Resp BP Pulse Ox 98.0 F 89 20 128/73 97 09/27/18 08:18 09/27/18 08:18 09/27/18 08:18 09/27/18 08:18 09/27/18 08:18 Intake and Output: 09/27/18 09/27/18 06:59 18:59 Intake Total 1140 Balance 1140 - Medications Medications: Current Medications Aspirin (Ecotrin) 81 mg PO DAILY [facility] Last Admin: 09/26/18 10:36 Dose: 81 mg Cilostazol (Pletal) 50 mg PO DAILY [facility] Last Admin: 09/26/18 10:36 Dose: 50 mg Dextrose (Dextrose 50% Inj) 0 ml IV STAT PRN; Protocol PRN Reason: Hypoglycemia Protocol Dextrose (Glutose 15) 0 gm PO ONCE PRN; Protocol PRN Reason: Hypoglycemia Protocol Doxycycline Hyclate (Doryx) 100 mg PO Q12H [facility]; Protocol Last Admin: 09/27/18 00:28 Dose: 100 mg Duloxetine HCl (Cymbalta) 60 mg PO Q24H [facility] Last Admin: 09/26/18 12:50 Dose: 60 mg Fluticasone/Vilanterol (Breo Ellipta 200-25 Mcg Inh) 1 puff INH RQD [facility] Last Admin: 09/26/18 08:00 Dose: Not Given Glucagon (Glucagen Diagnostic Kit) 0 mg IM STAT PRN; Protocol PRN Reason: Hypoglycemia Protocol Guaifenesin/Dextromethorphan (Robitussin Dm) 5 ml PO Q4H PRN PRN Reason: Cough Last Admin: 09/26/18 13:54 Dose: 5 ml Heparin Sodium (Porcine) (Heparin) 5,000 units SC Q12 [facility] Last Admin: 09/26/18 22:14 Dose: 5,000 units Ceftriaxone Sodium 1 gm/ (Sodium Chloride) 100 mls @ 100 mls/hr IVPB Q24H [facility]; Protocol Last Admin: 09/27/18 00:28 Dose: 100 mls/hr Insulin Human Regular (Novolin R) 0 unit SC ACHS [facility]; Protocol Last Admin: 09/27/18 08:27 Dose: Not Given Losartan Potassium (Cozaar) 25 mg PO DAILY [facility] Last Admin: 09/26/18 10:36 Dose: 25 mg Metoprolol Succinate (Toprol Xl) 25 mg PO DAILY [facility] Last Admin: 09/26/18 10:36 Dose: 25 mg Pantoprazole Sodium (Protonix Ec Tab) 40 mg PO DAILY [facility] Last Admin: 09/26/18 10:36 Dose: 40 mg Polyethylene Glycol (Miralax) 17 gm PO BID [facility] Promethazine HCl (Phenergan Syrup) 6.25 mg PO Q6 PRN PRN Reason: Cough Last Admin: 09/26/18 18:29 Dose: 6.25 mg Ranolazine (Ranexa) 1,000 mg PO BID [facility] Last Admin: 09/26/18 18:22 Dose: 1,000 mg Rosuvastatin Calcium (Crestor) 5 mg PO HS [facility] Last Admin: 09/26/18 22:13 Dose: 5 mg - Labs Labs: 09/27/18 08:33 09/27/18 08:33 PT 13.6 SECONDS (9.7-12.2) H 09/20/18 20:02 INR 1.2 09/20/18 20:02 APTT 35 SECONDS (21-34) H 09/20/18 20:02 Attending/Attestation - Attestation I have personally seen and examined this patient.: Yes I have fully participated in the care of the patient.: Yes I have reviewed all pertinent clinical information, including history, physical exam and plan: Yes Notes (Text): Patient is doing better. Spoke to Dr Alvarado. He is recommeding CT angio to r/o mesenteric ischemia continue antibiotics and possible discharge tomorrow Seen and examined and assessment and the plan discussed with the resident
[2018-09-26] MEDS: Fluconazole IV 100mg/50 ml NS 50 ML IVPB SCH (13:55)
[2018-09-26] MEDS ORDERED: Iodixanol 320 MG/ML 100 ML BOTTLE IV ONE (15:30)
--- NOTE | 2018-09-26 16:52 | CT ---
Date of service: 09/26/2018 CTA abdomen and pelvis Indication: LLQ pain, abdominal angina Comparison: CT abdomen and pelvis without contrast performed 09/21/18 Technique: Contrast dose: 100 mL Visipaque IV Total exam DLP: 976.09 mGy cm Axial computed tomographic angiogram images of the abdomen and pelvis were performed after bolus administration of nonionic intravenous contrast. Multiplanar, 3D (maximum intensity projection) none available reconstructions of the aorta were created in the coronal and sagittal planes by the operating room technologist. This CT exam was performed using 1 or more of the falling dose reduction techniques: Automated exposure control, adjustment of the MAA and/or kV according to patient size, and/or use of iterative reconstruction technique. Findings: Limited views of the inferior thorax demonstrate bibasilar atelectasis or infiltrates. Partially imaged cardiomegaly. Small hiatal hernia/distal esophageal wall thickening. Scattered atherosclerotic calcifications of the aorta and branches. There is normal course and contour of the abdominal aorta and common iliac arteries. The celiac artery origin is widely patent. The superior mesenteric artery origin is widely patent. The inferior mesenteric artery origin is patent. Bilateral renal arteries appear patent. Evidence of two right renal arteries and a single left renal artery. The liver appears within normal limits of size and morphology. Fatty atrophy. The spleen, adrenal glands, and gallbladder appear unremarkable. The kidneys enhance symmetrically without evidence of hydronephrosis or obstructing renal calculi. No enlarged abdominal lymphadenopathy is identified. Moderate constipation. Visualized bowel loops appear within normal limits of caliber without evidence of obstruction. The appendix is not identified. No inflammatory changes are seen in the right lower quadrant to suggest acute appendicitis. No definite free air. Bilateral fat containing inguinal hernias. Tiny fat containing umbilical hernia. The urinary bladder appears unremarkable. The prostate gland measures approximately 2.8 x 4.2 cm. No significant pelvic free fluid is identified. Degenerative changes. Impression: Moderate diffuse constipation. Small fat containing inguinal hernias bilaterally. Small fat containing umbilical hernia. Bibasilar atelectasis or infiltrates. Partially imaged cardiomegaly. Small hiatal hernia/distal esophageal wall thickening. Additional findings as above.
--- NOTE | 2018-09-26 18:02 | CP.PCM.PN ---
Subjective - Date & Time of Evaluation Date of Evaluation: 09/26/18 Time of Evaluation: 18:02 Objective - Vital Signs/Intake and Output Vital Signs (last 24 hours): Temp Pulse Resp BP Pulse Ox 98 F 84 20 106/54 L 98 09/26/18 15:35 09/26/18 15:35 09/26/18 15:35 09/26/18 15:35 09/26/18 15:35 - Medications Medications: Current Medications Aspirin (Ecotrin) 81 mg PO DAILY [facility] Last Admin: 09/26/18 10:36 Dose: 81 mg Cilostazol (Pletal) 50 mg PO DAILY [facility] Last Admin: 09/26/18 10:36 Dose: 50 mg Dextrose (Dextrose 50% Inj) 0 ml IV STAT PRN; Protocol PRN Reason: Hypoglycemia Protocol Dextrose (Glutose 15) 0 gm PO ONCE PRN; Protocol PRN Reason: Hypoglycemia Protocol Doxycycline Hyclate (Doryx) 100 mg PO Q12H [facility]; Protocol Last Admin: 09/26/18 12:49 Dose: 100 mg Duloxetine HCl (Cymbalta) 60 mg PO Q24H [facility] Last Admin: 09/26/18 12:50 Dose: 60 mg Fluticasone/Vilanterol (Breo Ellipta 200-25 Mcg Inh) 1 puff INH RQD [facility] Last Admin: 09/26/18 08:00 Dose: Not Given Furosemide (Lasix) 40 mg IVP Q12 [facility] Last Admin: 09/26/18 10:34 Dose: 40 mg Glucagon (Glucagen Diagnostic Kit) 0 mg IM STAT PRN; Protocol PRN Reason: Hypoglycemia Protocol Guaifenesin/Dextromethorphan (Robitussin Dm) 5 ml PO Q4H PRN PRN Reason: Cough Last Admin: 09/26/18 13:54 Dose: 5 ml Heparin Sodium (Porcine) (Heparin) 5,000 units SC Q12 [facility] Last Admin: 09/26/18 10:34 Dose: 5,000 units Ceftriaxone Sodium 1 gm/ (Sodium Chloride) 100 mls @ 100 mls/hr IVPB Q24H [facility]; Protocol Last Admin: 09/25/18 22:56 Dose: 100 mls/hr Fluconazole (Diflucan Iv 100 Mg/50 Ml Ns) 50 mls @ 100 mls/hr IVPB Q24H [facility]; Protocol Last Admin: 09/26/18 13:55 Dose: 100 mls/hr Insulin Human Regular (Novolin R) 0 unit SC ACHS [facility]; Protocol Last Admin: 09/26/18 12:50 Dose: 4 units Losartan Potassium (Cozaar) 25 mg PO DAILY [facility] Last Admin: 09/26/18 10:36 Dose: 25 mg Metoprolol Succinate (Toprol Xl) 25 mg PO DAILY [facility] Last Admin: 09/26/18 10:36 Dose: 25 mg Pantoprazole Sodium (Protonix Ec Tab) 40 mg PO DAILY [facility] Last Admin: 09/26/18 10:36 Dose: 40 mg Promethazine HCl (Phenergan Syrup) 6.25 mg PO Q6 PRN PRN Reason: Cough Last Admin: 09/25/18 22:22 Dose: 6.25 mg Ranolazine (Ranexa) 1,000 mg PO BID [facility] Last Admin: 09/26/18 10:35 Dose: 1,000 mg Rosuvastatin Calcium (Crestor) 5 mg PO HS [facility] Last Admin: 09/25/18 22:22 Dose: 5 mg - Labs Labs: 09/26/18 07:26 09/26/18 07:26 PT 13.6 SECONDS (9.7-12.2) H 09/20/18 20:02 INR 1.2 09/20/18 20:02 APTT 35 SECONDS (21-34) H 09/20/18 20:02 Assessment and Plan (1) Asthma Status: Acute (2) CHF (congestive heart failure) Status: Acute (3) Dyspnea Status: Acute (4) Pneumonia Status: Acute
[2018-09-26] MEDS ORDERED: Magnesium Hydroxide Susp 30 ml UD PO ONE (18:14)
[2018-09-26] MEDS: Promethazine 6.25 MG/5 ML CUP PO PRN (18:29)
--- NOTE | 2018-09-26 22:25 | CP.PCM.PN ---
Subjective - Date & Time of Evaluation Date of Evaluation: 09/26/18 Time of Evaluation: 13:05 - Subjective Subjective: Patient seen and evaluated No cardiac events noted pulmonary managing pneumonia Objective - Vital Signs/Intake and Output Vital Signs (last 24 hours): Temp Pulse Resp BP Pulse Ox 98 F 84 20 106/54 L 98 09/26/18 15:35 09/26/18 15:35 09/26/18 15:35 09/26/18 15:35 09/26/18 15:35 - Medications Medications: Current Medications Aspirin (Ecotrin) 81 mg PO DAILY [facility] Last Admin: 09/26/18 10:36 Dose: 81 mg Cilostazol (Pletal) 50 mg PO DAILY [facility] Last Admin: 09/26/18 10:36 Dose: 50 mg Dextrose (Dextrose 50% Inj) 0 ml IV STAT PRN; Protocol PRN Reason: Hypoglycemia Protocol Dextrose (Glutose 15) 0 gm PO ONCE PRN; Protocol PRN Reason: Hypoglycemia Protocol Doxycycline Hyclate (Doryx) 100 mg PO Q12H [facility]; Protocol Last Admin: 09/26/18 12:49 Dose: 100 mg Duloxetine HCl (Cymbalta) 60 mg PO Q24H [facility] Last Admin: 09/26/18 12:50 Dose: 60 mg Fluticasone/Vilanterol (Breo Ellipta 200-25 Mcg Inh) 1 puff INH RQD [facility] Last Admin: 09/26/18 08:00 Dose: Not Given Glucagon (Glucagen Diagnostic Kit) 0 mg IM STAT PRN; Protocol PRN Reason: Hypoglycemia Protocol Guaifenesin/Dextromethorphan (Robitussin Dm) 5 ml PO Q4H PRN PRN Reason: Cough Last Admin: 09/26/18 13:54 Dose: 5 ml Heparin Sodium (Porcine) (Heparin) 5,000 units SC Q12 [facility] Last Admin: 09/26/18 22:14 Dose: 5,000 units Ceftriaxone Sodium 1 gm/ (Sodium Chloride) 100 mls @ 100 mls/hr IVPB Q24H [facility]; Protocol Last Admin: 09/25/18 22:56 Dose: 100 mls/hr Fluconazole (Diflucan Iv 100 Mg/50 Ml Ns) 50 mls @ 100 mls/hr IVPB Q24H [facility]; Protocol Last Admin: 09/26/18 13:55 Dose: 100 mls/hr Insulin Human Regular (Novolin R) 0 unit SC ACHS [facility]; Protocol Last Admin: 09/26/18 22:08 Dose: Not Given Losartan Potassium (Cozaar) 25 mg PO DAILY [facility] Last Admin: 09/26/18 10:36 Dose: 25 mg Metoprolol Succinate (Toprol Xl) 25 mg PO DAILY [facility] Last Admin: 09/26/18 10:36 Dose: 25 mg Pantoprazole Sodium (Protonix Ec Tab) 40 mg PO DAILY [facility] Last Admin: 09/26/18 10:36 Dose: 40 mg Polyethylene Glycol (Miralax) 17 gm PO BID [facility] Promethazine HCl (Phenergan Syrup) 6.25 mg PO Q6 PRN PRN Reason: Cough Last Admin: 09/26/18 18:29 Dose: 6.25 mg Ranolazine (Ranexa) 1,000 mg PO BID [facility] Last Admin: 09/26/18 18:22 Dose: 1,000 mg Rosuvastatin Calcium (Crestor) 5 mg PO HS [facility] Last Admin: 09/26/18 22:13 Dose: 5 mg - Labs Labs: 09/26/18 07:26 09/26/18 07:26 PT 13.6 SECONDS (9.7-12.2) H 09/20/18 20:02 INR 1.2 09/20/18 20:02 APTT 35 SECONDS (21-34) H 09/20/18 20:02
--- NOTE | 2018-09-27 06:58 | CP.PCM.PN ---
Subjective - Date & Time of Evaluation Date of Evaluation: 09/27/18 Time of Evaluation: 06:58 Objective - Vital Signs/Intake and Output Vital Signs (last 24 hours): Temp Pulse Resp BP Pulse Ox 98.2 F 79 20 116/69 96 09/27/18 00:00 09/27/18 00:00 09/27/18 00:00 09/27/18 00:00 09/27/18 00:00 Intake and Output: 09/26/18 09/27/18 18:59 06:59 Intake Total 800 Balance 800 - Medications Medications: Current Medications Aspirin (Ecotrin) 81 mg PO DAILY [facility] Last Admin: 09/26/18 10:36 Dose: 81 mg Cilostazol (Pletal) 50 mg PO DAILY [facility] Last Admin: 09/26/18 10:36 Dose: 50 mg Dextrose (Dextrose 50% Inj) 0 ml IV STAT PRN; Protocol PRN Reason: Hypoglycemia Protocol Dextrose (Glutose 15) 0 gm PO ONCE PRN; Protocol PRN Reason: Hypoglycemia Protocol Doxycycline Hyclate (Doryx) 100 mg PO Q12H [facility]; Protocol Last Admin: 09/27/18 00:28 Dose: 100 mg Duloxetine HCl (Cymbalta) 60 mg PO Q24H [facility] Last Admin: 09/26/18 12:50 Dose: 60 mg Fluticasone/Vilanterol (Breo Ellipta 200-25 Mcg Inh) 1 puff INH RQD [facility] Last Admin: 09/26/18 08:00 Dose: Not Given Glucagon (Glucagen Diagnostic Kit) 0 mg IM STAT PRN; Protocol PRN Reason: Hypoglycemia Protocol Guaifenesin/Dextromethorphan (Robitussin Dm) 5 ml PO Q4H PRN PRN Reason: Cough Last Admin: 09/26/18 13:54 Dose: 5 ml Heparin Sodium (Porcine) (Heparin) 5,000 units SC Q12 [facility] Last Admin: 09/26/18 22:14 Dose: 5,000 units Ceftriaxone Sodium 1 gm/ (Sodium Chloride) 100 mls @ 100 mls/hr IVPB Q24H [facility]; Protocol Last Admin: 09/27/18 00:28 Dose: 100 mls/hr Fluconazole (Diflucan Iv 100 Mg/50 Ml Ns) 50 mls @ 100 mls/hr IVPB Q24H [facility]; Protocol Last Admin: 09/26/18 13:55 Dose: 100 mls/hr Insulin Human Regular (Novolin R) 0 unit SC ACHS [facility]; Protocol Last Admin: 09/26/18 22:08 Dose: Not Given Losartan Potassium (Cozaar) 25 mg PO DAILY [facility] Last Admin: 09/26/18 10:36 Dose: 25 mg Metoprolol Succinate (Toprol Xl) 25 mg PO DAILY [facility] Last Admin: 09/26/18 10:36 Dose: 25 mg Pantoprazole Sodium (Protonix Ec Tab) 40 mg PO DAILY [facility] Last Admin: 09/26/18 10:36 Dose: 40 mg Polyethylene Glycol (Miralax) 17 gm PO BID [facility] Promethazine HCl (Phenergan Syrup) 6.25 mg PO Q6 PRN PRN Reason: Cough Last Admin: 09/26/18 18:29 Dose: 6.25 mg Ranolazine (Ranexa) 1,000 mg PO BID [facility] Last Admin: 09/26/18 18:22 Dose: 1,000 mg Rosuvastatin Calcium (Crestor) 5 mg PO HS [facility] Last Admin: 09/26/18 22:13 Dose: 5 mg - Labs Labs: 09/26/18 07:26 09/26/18 07:26 PT 13.6 SECONDS (9.7-12.2) H 09/20/18 20:02 INR 1.2 09/20/18 20:02 APTT 35 SECONDS (21-34) H 09/20/18 20:02
[2018-09-27 08:19] VITALS: TEMP 98; O2SAT 97
[2018-09-27] MEDS: (Novolin R) Insulin Human Regular 100 units/ml vial SC SCH ×2 (08:27→12:30)
[2018-09-27 08:48] LABS: BASO # 0.1 K/uL (0.0-0.2); BASO % 0.7 % (0.0-2.0); EOS # 0.3 K/uL (0.0-0.7); EOS % 4.7 % (0.0-4.0); HEMOGLOBIN 12.7 g/dL (12.0-18.0); LYMPH # 1.4 K/uL (1.0-4.3); LYMPH % 18.9 % (20.0-40.0); MEAN CELL VOLUME 78.1 fL (80.0-94.0); MEAN CORPUSCULAR HEMOGLOBIN 25.4 pg (27.0-31.0); MEAN CORPUSCULAR HGB CONC 32.5 g/dL (33.0-37.0); MEAN PLATELET VOLUME 7.6 fL (7.2-11.7); MONO # 0.9 K/uL (0.0-0.8); MONO % 12.6 % (0.0-10.0); NEUT # 4.7 K/uL (1.8-7.0); NEUT % 63.1 % (50.0-75.0); NRBC % 0.1 % (0.0-2.0); RED CELL DISTRIBUTION WIDTH 17.9 % (11.5-14.5); WHITE BLOOD COUNT 7.4 K/uL (4.8-10.8)
[2018-09-27 08:53] LABS: ALBUMIN 3.6 g/dL (3.5-5.0); ALT/SGPT 48 U/L (21-72); AST/SGOT 42 U/L (17-59); BLOOD UREA NITROGEN 22 mg/dL (9-20); CALCIUM 8.9 mg/dl (8.6-10.4); GFR NON-AFRICAN AMERICAN > 60
[2018-09-27 09:57] VITALS: BP 146/82; PULSE 91
[2018-09-27] MEDS ORDERED: POLYETHYLENE GLYCOL 3350 17 GM/Dose PACKET PO SCH (10:00)
[2018-09-27] MEDS: Pantoprazole 40 mg EC Tab PO SCH (10:04)
[2018-09-27] MEDS: Metoprolol Succinate 25 mg XL Tab PO SCH (10:04)
[2018-09-27] MEDS: Ranolazine 500 mg Extended Release Tablets PO SCH (10:04)
[2018-09-27] MEDS: Cilostazol 50 mg Tab UD PO SCH (10:04)
[2018-09-27] MEDS: Fluticasone-Vilanterol 200/25mcg Diskus INH SCH (10:45)
--- NOTE | 2018-09-27 13:28 | CP.PCM.DIS ---
<Zack Schultz - Last Filed: 09/27/18 13:53> Provider - Provider Date of Admission: 09/20/18 20:51 Attending physician: Victoriano Randall MD Consults: 09/20/18 23:51 Cardiology Consult Routine Comment: Consulting Provider: Rikki Yan Consulting Physician: Rikki Yan Reason for Consult: hx of coronary stent placement, HTN 09/25/18 13:36 Pulmonology Consult Routine Comment: Consulting Provider: Erika Akers Consulting Physician: Erika Akers Reason for Consult: Mulitifocal PNA, b/l LL infiltrate, atelectasis 09/25/18 13:40 Gastroenterology Consult Routine Comment: Consulting Provider: Adrián Mcgrath Consulting Physician: Adrián Mcgrath Reason for Consult: abdominal pain Time Spent in preparation of Discharge (in minutes): 40 Hospital Course - Lab Results Lab Results: Micro Results 09/20/18 20:15 Blood Blood Culture - Final NO GROWTH AFTER 5 DAYS 09/20/18 20:15 Blood Gram Stain - Final TEST NOT PERFORMED 09/20/18 19:45 Blood Blood Culture - Final NO GROWTH AFTER 5 DAYS 09/20/18 19:45 Blood Gram Stain - Final TEST NOT PERFORMED 09/21/18 22:46 Sputum Gram Stain - Final 09/21/18 22:46 Sputum Sputum Culture - Final Yeast Species Most Recent Lab Values WBC 7.4 K/uL (4.8-10.8) 09/27/18 08:33 RBC 5.00 Mil/uL (4.40-5.90) 09/27/18 08:33 Hgb 12.7 g/dL (12.0-18.0) 09/27/18 08:33 Hct 39.1 % (35.0-51.0) 09/27/18 08:33 MCV 78.1 fL (80.0-94.0) L 09/27/18 08:33 MCH 25.4 pg (27.0-31.0) L 09/27/18 08:33 MCHC 32.5 g/dL (33.0-37.0) L 09/27/18 08:33 RDW 17.9 % (11.5-14.5) H 09/27/18 08:33 Plt Count 242 K/uL (130-400) 09/27/18 08:33 MPV 7.6 fL (7.2-11.7) 09/27/18 08:33 Neut % (Auto) 63.1 % (50.0-75.0) 09/27/18 08:33 Lymph % (Auto) 18.9 % (20.0-40.0) L 09/27/18 08:33 [place] % (Auto) 12.6 % (0.0-10.0) H 09/27/18 08:33 Eos % (Auto) 4.7 % (0.0-4.0) H 09/27/18 08:33 Baso % (Auto) 0.7 % (0.0-2.0) 09/27/18 08:33 Neut # (Auto) 4.7 K/uL (1.8-7.0) 09/27/18 08:33 Lymph # (Auto) 1.4 K/uL (1.0-4.3) 09/27/18 08:33 [place] # (Auto) 0.9 K/uL (0.0-0.8) H 09/27/18 08:33 Eos # (Auto) 0.3 K/uL (0.0-0.7) 09/27/18 08:33 Baso # (Auto) 0.1 K/uL (0.0-0.2) 09/27/18 08:33 Neutrophils % (Manual) 89 % (50-75) H 09/20/18 19:53 Band Neutrophils % 4 % (0-2) H 09/20/18 19:53 Lymphocytes % (Manual) 5 % (20-40) L 09/20/18 19:53 Monocytes % (Manual) 2 % (0-10) 09/20/18 19:53 Platelet Estimate Normal (NORMAL) 09/20/18 19:53 Hypochromasia (manual) Slight 09/20/18 19:53 Poikilocytosis (manual Slight 09/20/18 19:53 Anisocytosis (manual) Slight 18 19:53 Microcytosis (manual) Slight 18 19:53 Target Cells Slight 09/20/18 19:53 PT 13.6 SECONDS (9.7-12.2) H 18 20:02 INR 1.2 12/12/18 20:02 APTT 35 SECONDS (21-34) H 09/20/18 20:02 Puncture Site Rr 09/20/18 19:55 pCO2 42 mm/Hg (35-45) 09/20/18 19:55 pO2 146 mm/Hg (80-100) H 09/20/18 19:55 HCO3 24.1 mmol/L (21-28) 09/20/18 19:55 ABG pH 7.37 (7.35-7.45) 09/20/18 19:55 ABG Total CO2 25.6 mmol/L (22-28) 09/20/18 19:55 ABG O2 Saturation 99.5 % (95-98) H 09/20/18 19:55 ABG Base Excess -1.1 mmol/L (-2.0-3.0) 09/20/18 19:55 Tom Test Yes 09/20/18 19:55 ABG Potassium 4.2 mmol/L (3.6-5.2) 09/20/18 19:55 Sodium 132.0 mmol/l (132-148) 09/20/18 19:55 Chloride 103.0 mmol/L (98-107) 09/20/18 19:55 Glucose 129 mg/dl (75-110) H 09/20/18 19:55 Lactate 0.8 mmol/L (0.7-2.1) 09/20/18 19:55 Sodium 133 mmol/L (132-148) 09/27/18 08:33 Potassium 4.3 mmol/L (3.6-5.2) 09/27/18 08:33 Chloride 94 mmol/L (98-107) L 09/27/18 08:33 Carbon Dioxide 30 mmol/L (22-30) 09/27/18 08:33 Anion Gap 13 (10-20) 09/27/18 08:33 BUN 22 mg/dL (9-20) H 09/27/18 08:33 Creatinine 0.8 mg/dL (0.8-1.5) 09/27/18 08:33 Est GFR ( Amer) > 60 09/27/18 08:33 Est GFR (Non-Af Amer) > 60 09/27/18 08:33 POC Glucose (mg/dL) 85 mg/dL (65-110) 09/27/18 06:34 Random Glucose 96 mg/dL (75-110) 09/27/18 08:33 Hemoglobin A1c 6.8 % (4.2-6.5) H 09/21/18 06:40 Calcium 8.9 mg/dl (8.6-10.4) 09/27/18 08:33 Magnesium 1.9 mg/dL (1.6-2.3) 09/20/18 19:53 Total Bilirubin 0.8 mg/dL (0.2-1.3) 09/27/18 08:33 AST 42 U/L (17-59) 09/27/18 08:33 ALT 48 U/L (21-72) 09/27/18 08:33 Alkaline Phosphatase 96 U/L (38-126) 09/27/18 08:33 Troponin I 0.0150 ng/mL (0.00-0.120) 09/21/18 06:40 NT-Pro-B Natriuret Pep 1570 pg/mL (0-900) H 09/20/18 19:53 Total Protein 7.2 g/dL (6.3-8.3) 09/27/18 08:33 Albumin 3.6 g/dL (3.5-5.0) 09/27/18 08:33 Globulin 3.6 gm/dL (2.2-3.9) 09/27/18 08:33 Albumin/Globulin Ratio 1.0 (1.0-2.1) 09/27/18 08:33 Arterial Blood Potassium 4.2 mmol/L (3.6-5.2) 09/20/18 19:55 Urine Color Yellow (YELLOW) 09/20/18 21:40 Urine Clarity Clear (Clear) 09/20/18 21:40 Urine pH 6.0 (5.0-8.0) 09/20/18 21:40 Ur Specific [place] 1.017 (1.003-1.030) 09/20/18 21:40 Urine Protein Negative mg/dL (NEGATIVE) 09/20/18 21:40 Urine Glucose (UA) 3+ mg/dL (Normal) H 09/20/18 21:40 Urine Ketones Negative mg/dL (NEGATIVE) 09/20/18 21:40 Urine Blood Negative (NEGATIVE) 09/20/18 21:40 Urine Nitrate Negative (NEGATIVE) 09/20/18 21:40 Urine Bilirubin Negative (NEGATIVE) 09/20/18 21:40 Urine Urobilinogen Normal mg/dL (0.2-1.0) 09/20/18 21:40 Ur Leukocyte Esterase Neg Kelly/uL (Negative) 09/20/18 21:40 Urine WBC (Auto) < 1 /hpf (0-5) 09/20/18 21:40 Urine RBC (Auto) 1 /hpf (0-3) 09/20/18 21:40 Ur Squamous Epith Cells < 1 /hpf (0-5) 09/20/18 21:40 Influenza Typ A,B (EIA) Negative for flu a/b (NEGATIVE) 09/20/18 19:59 Ur L.pneumophila Ag Negative (NEGATIVE) 09/21/18 20:16 Mycoplasma pneumon IgM Negative (NEGATIVE) 09/21/18 16:38 Ur Strep pneumoniae Ag Not detected (Not Detected) 09/21/18 20:16 - Hospital Course Hospital Course: HPI: Patient is a 58 year old Male with past medical history of diabetes mellitus type 2, peripheral vascular disease, hyperlipidemia, angina, hypertension, gastritis that came to the ED for worsening shortness of breath that has been happening for the past 2-3 weeks. Patient was told by his chartered wealth manager to come to the ER. Patient is complaining of productive cough, with grayish phlegm for the past 3 days. Patient states he had previous difficultly walking a block, but in the past 3 weeks it has gotten worst. Admits to achy, non-radiating chest pain. Patient complains of leg swelling and feeling dizziness at times. Patient denies fever, chills, nausea, vomit, diarrhea, constipation, rash, weakness or headaches. During hospital course: Chest xray demonstrated venous congestion, and patchy bibasilar airspace consolidative changes. CT chest showed no pulmonary embolism, severe cardiomegaly, diffuse major coronary calcifications, venous congestion changes, right heart failure, multifocal pneumonia. CT abdomen/pelvis showed no acute abdominal pathology; bilateral patchy infiltrates and atelectasis; 2 inguinal and 1 umbilical hernia with no evidence of incarceration or strangulation. Influenza, mycoplasma, and legionella testing were all negative. Blood cultures demonstrated no growth. Sputum culture was positive for yeast infection. Patient requested Erika Kirby as his auricular detoxification specialist. Per recommendations, patient was put on ceftriaxone and doxycycline, breo-ellipta, promethazine, bronchodilators as needed. GI was consulted (Dr. Mcgrath) due to abdominal pain of unclear etiology. Multiple CT scans have shown diverticulosis, but colonoscopy and barium enema did not. No other relevant pathology has been found with EGD, UGI/SBFT, MRI. CT angiogram was performed and negative for any mesenteric ischemia. Moderate diffuse constipation was noted as well as small fat containing inguinal and umbilical hernias. Patient is medically stable for discharge to home, as per Dr. Randall. Patient to continue all home medications as currently prescribed. Patient will also be given a script for Doxycycline 100 mg PO twice daily for 4 more days as well as Breo-Ellipta, to be continued as indicated by your Pulmonary doctor. Please follow up with your primary care doctor (Dr. Phelps) within 1-2 weeks of discharge for monitoring and continued care. Please also follow up with GI (Dr. Alvarado) and Pulmonology (Dr. Akers) in the outpatient setting within 1-2 weeks of discharge for monitoring. If symptoms worsen or persist, please return to the ED. The following is a summary of hospital course. For further detail, please refer to EMR. - Date & Time of H&P Date of H&P: 09/27/18 Time of H&P: 13:28 Discharge Exam - Head Exam Head Exam: ATRAUMATIC, NORMAL INSPECTION, NORMOCEPHALIC - Eye Exam Eye Exam: EOMI, Normal appearance, PERRL - ENT Exam ENT Exam: Mucous Membranes Moist, Normal Exam - Neck Exam Neck exam: Full Rom, Normal Inspection - Respiratory Exam Respiratory Exam: Clear to PA & Lateral, NORMAL BREATHING PATTERN, UNREMARKABLE. absent: Accessory Muscle Use, Rales, Rhonchi, Wheezes, Respiratory Distress, Stridor - Cardiovascular Exam Cardiovascular Exam: REGULAR RHYTHM, +S1, +S2 - GI/Abdominal Exam GI & Abdominal Exam: Normal Bowel Sounds, Soft, Tenderness (mild TTP LLQ). absent: Firm, Guarding, Rebound, Rigid - Extremities Exam Extremities exam: normal capillary refill, normal inspection, pedal pulses present - Back Exam Back exam: NORMAL INSPECTION - Neurological Exam Neurological exam: Alert, CN II-XII Intact, Normal Gait, Oriented x3 - Skin Skin Exam: Dry, Intact, Normal Color, Warm Discharge Plan - Discharge Medications Prescriptions: RX: Doxycycline Hyclate [Doryx] 100 mg PO Q12H #8 cap RX: Fluticasone/Vilanterol 200/25 [Breo Ellipta 200-25 Mcg INH] 1 puff INH RQD #1 puff - Follow Up Plan Condition: FAIR Disposition: HOME/ ROUTINE Instructions: Pneumonia, Adult (DC), Chest Pain (DC), Fluticasone and Vilanterol, Doxycycline, Heart Failure (DC) Additional Instructions: Patient is medically stable for discharge to home, as per Dr. Randall. Patient to continue all home medications as currently prescribed. Patient will also be given a script for Doxycycline 100 mg PO twice daily for 4 more days as well as Breo-Ellipta, to be continued as indicated by your Pulmonary doctor. Please follow up with your primary care doctor (Dr. Phelps) within 1-2 weeks of discharge for monitoring and continued care. Please also follow up with GI (Dr. Alvarado) and Pulmonology (Dr. Akers) in the outpatient setting within 1-2 weeks of discharge for monitoring. If symptoms worsen or persist, please return to the ED. Referrals: Rikki Yan MD [Staff Provider] - Erika Akers MD [Staff Provider] - Adrián Mcgrath MD [Staff Provider] - <Victoriano Randall - Last Filed: 09/27/18 14:14> Provider - Provider Date of Admission: 09/20/18 20:51 Attending physician: Victoriano Randall MD Consults: 09/20/18 23:51 Cardiology Consult Routine Comment: Consulting Provider: Rikki Yan Consulting Physician: Rikki Yan Reason for Consult: hx of coronary stent placement, HTN 09/25/18 13:36 Pulmonology Consult Routine Comment: Consulting Provider: Erika Akesr Consulting Physician: Erika Akers Reason for Consult: Mulitifocal PNA, b/l LL infiltrate, atelectasis 09/25/18 13:40 Gastroenterology Consult Routine Comment: Consulting Provider: Adrián Mcgrath Consulting Physician: Adrián Mcgrath Reason for Consult: abdominal pain Hospital Course - Lab Results Lab Results: Micro Results 09/20/18 20:15 Blood Blood Culture - Final NO GROWTH AFTER 5 DAYS 09/20/18 20:15 Blood Gram Stain - Final TEST NOT PERFORMED 09/20/18 19:45 Blood Blood Culture - Final NO GROWTH AFTER 5 DAYS 09/20/18 19:45 Blood Gram Stain - Final TEST NOT PERFORMED 09/21/18 22:46 Sputum Gram Stain - Final 09/21/18 22:46 Sputum Sputum Culture - Final Yeast Species Most Recent Lab Values WBC 7.4 K/uL (4.8-10.8) 09/27/18 08:33 RBC 5.00 Mil/uL (4.40-5.90) 09/27/18 08:33 Hgb 12.7 g/dL (12.0-18.0) 09/27/18 08:33 Hct 39.1 % (35.0-51.0) 09/27/18 08:33 MCV 78.1 fL (80.0-94.0) L 09/27/18 08:33 MCH 25.4 pg (27.0-31.0) L 09/27/18 08:33 MCHC 32.5 g/dL (33.0-37.0) L 09/27/18 08:33 RDW 17.9 % (11.5-14.5) H 09/27/18 08:33 Plt Count 242 K/uL (130-400) 09/27/18 08:33 MPV 7.6 fL (7.2-11.7) 09/27/18 08:33 Neut % (Auto) 63.1 % (50.0-75.0) 09/27/18 08:33 Lymph % (Auto) 18.9 % (20.0-40.0) L 09/27/18 08:33 [place] % (Auto) 12.6 % (0.0-10.0) H 09/27/18 08:33 Eos % (Auto) 4.7 % (0.0-4.0) H 09/27/18 08:33 Baso % (Auto) 0.7 % (0.0-2.0) 09/27/18 08:33 Neut # (Auto) 4.7 K/uL (1.8-7.0) 09/27/18 08:33 Lymph # (Auto) 1.4 K/uL (1.0-4.3) 09/27/18 08:33 [place] # (Auto) 0.9 K/uL (0.0-0.8) H 09/27/18 08:33 Eos # (Auto) 0.3 K/uL (0.0-0.7) 09/27/18 08:33 Baso # (Auto) 0.1 K/uL (0.0-0.2) 09/27/18 08:33 Neutrophils % (Manual) 89 % (50-75) H 09/20/18 19:53 Band Neutrophils % 4 % (0-2) H 09/20/18 19:53 Lymphocytes % (Manual) 5 % (20-40) L 09/20/18 19:53 Monocytes % (Manual) 2 % (0-10) 09/20/18 19:53 Platelet Estimate Normal (NORMAL) 09/20/18 19:53 Hypochromasia (manual) Slight 09/20/18 19:53 Poikilocytosis (manual Slight 09/20/18 19:53 Anisocytosis (manual) Slight 09/20/18 19:53 Microcytosis (manual) Slight 09/20/18 19:53 Target Cells Slight 09/20/18 19:53 PT 13.6 SECONDS (9.7-12.2) H 09/20/18 20:02 INR 1.2 09/20/18 20:02 APTT 35 SECONDS (21-34) H 09/20/18 20:02 Puncture Site Rr 09/20/18 19:55 pCO2 42 mm/Hg (35-45) 09/20/18 19:55 pO2 146 mm/Hg (80-100) H 09/20/18 19:55 HCO3 24.1 mmol/L (21-28) 09/20/18 19:55 ABG pH 7.37 (7.35-7.45) 09/20/18 19:55 ABG Total CO2 25.6 mmol/L (22-28) 09/20/18 19:55 ABG O2 Saturation 99.5 % (95-98) H 09/20/18 19:55 ABG Base Excess -1.1 mmol/L (-2.0-3.0) 09/20/18 19:55 Tom Test Yes 09/20/18 19:55 ABG Potassium 4.2 mmol/L (3.6-5.2) 09/20/18 19:55 Sodium 132.0 mmol/l (132-148) 09/20/18 19:55 Chloride 103.0 mmol/L (98-107) 09/20/18 19:55 Glucose 129 mg/dl (75-110) H 09/20/18 19:55 Lactate 0.8 mmol/L (0.7-2.1) 09/20/18 19:55 Sodium 133 mmol/L (132-148) 09/27/18 08:33 Potassium 4.3 mmol/L (3.6-5.2) 09/27/18 08:33 Chloride 94 mmol/L (98-107) L 09/27/18 08:33 Carbon Dioxide 30 mmol/L (22-30) 09/27/18 08:33 Anion Gap 13 (10-20) 09/27/18 08:33 BUN 22 mg/dL (9-20) H 09/27/18 08:33 Creatinine 0.8 mg/dL (0.8-1.5) 09/27/18 08:33 Est GFR ( Amer) > 60 09/27/18 08:33 Est GFR (Non-Af Amer) > 60 09/27/18 08:33 POC Glucose (mg/dL) 85 mg/dL (65-110) 09/27/18 06:34 Random Glucose 96 mg/dL (75-110) 09/27/18 08:33 Hemoglobin A1c 6.8 % (4.2-6.5) H 09/21/18 06:40 Calcium 8.9 mg/dl (8.6-10.4) 09/27/18 08:33 Magnesium 1.9 mg/dL (1.6-2.3) 09/20/18 19:53 Total Bilirubin 0.8 mg/dL (0.2-1.3) 09/27/18 08:33 AST 42 U/L (17-59) 09/27/18 08:33 ALT 48 U/L (21-72) 09/27/18 08:33 Alkaline Phosphatase 96 U/L (38-126) 09/27/18 08:33 Troponin I 0.0150 ng/mL (0.00-0.120) 09/21/18 06:40 NT-Pro-B Natriuret Pep 1570 pg/mL (0-900) H 09/20/18 19:53 Total Protein 7.2 g/dL (6.3-8.3) 09/27/18 08:33 Albumin 3.6 g/dL (3.5-5.0) 09/27/18 08:33 Globulin 3.6 gm/dL (2.2-3.9) 09/27/18 08:33 Albumin/Globulin Ratio 1.0 (1.0-2.1) 09/27/18 08:33 Arterial Blood Potassium 4.2 mmol/L (3.6-5.2) 09/20/18 19:55 Urine Color Yellow (YELLOW) 09/20/18 21:40 Urine Clarity Clear (Clear) 09/20/18 21:40 Urine pH 6.0 (5.0-8.0) 09/20/18 21:40 Ur Specific [place] 1.017 (1.003-1.030) 09/20/18 21:40 Urine Protein Negative mg/dL (NEGATIVE) 09/20/18 21:40 Urine Glucose (UA) 3+ mg/dL (Normal) H 09/20/18 21:40 Urine Ketones Negative mg/dL (NEGATIVE) 09/20/18 21:40 Urine Blood Negative (NEGATIVE) 09/20/18 21:40 Urine Nitrate Negative (NEGATIVE) 09/20/18 21:40 Urine Bilirubin Negative (NEGATIVE) 09/20/18 21:40 Urine Urobilinogen Normal mg/dL (0.2-1.0) 09/20/18 21:40 Ur Leukocyte Esterase Neg Kelly/uL (Negative) 09/20/18 21:40 Urine WBC (Auto) < 1 /hpf (0-5) 09/20/18 21:40 Urine RBC (Auto) 1 /hpf (0-3) 09/20/18 21:40 Ur Squamous Epith Cells < 1 /hpf (0-5) 09/20/18 21:40 Influenza Typ A,B (EIA) Negative for flu a/b (NEGATIVE) 09/20/18 19:59 Ur L.pneumophila Ag Negative (NEGATIVE) 09/21/18 20:16 Mycoplasma pneumon IgM Negative (NEGATIVE) 09/21/18 16:38 Ur Strep pneumoniae Ag Not detected (Not Detected) 09/21/18 20:16 Attending/Attestation - Attestation I have personally seen and examined this patient.: Yes I have fully participated in the care of the patient.: Yes I have reviewed all pertinent clinical information, including history, physical exam and plan: Yes Notes (Text): Patient was seen and examined by me,sitting on the bed,no sob,no fever saturating good off oxygen,lungs sounds better,few rales at bases d/w DR Akers. He agrees with the plan of discharge and follow out pt we will discharge on doxycycline and Breo prsecription continue home meds and follow Dr Akers and Dr Alvarado
--- NOTE | 2018-09-28 08:01 | PCM.HF ---
Heart Failure Core Measure - Heart Failure Ejection Fraction: 40 % or Greater MARY Inhibitor Prescribed: No Contraindication/Reason for not providing: on mary Beta-Isidro Prescribed: Metoprolol Succinate Angiotensin II Receptor Isidro Prescribed: Yes AnticoagulationTherapy for Atrial Fibrillation/Atrialflutter: No Contraindication/Reason for not providing: no hx of a fib Aldosterone Antagonist Prescribed: No Contraindication/Reason for not providing: ef>45 Hydralazine Nitrate Prescribed: No Contraindication/Reason for not providing: ef>45 Implantable Cardioverter Defibrillator Therapy: No Contraindication/Reason for not providing: ef>45 Cardiac Resynchronization Therapy Prescribed: No Contraindication/Reason for not providing: ef>45 - Follow up Will be discharged to: Home Follow Up Date (must be within 7 days from discharge): 10/02/18
== END 2018-09-27 14:00 | disposition home or self-care (01) | DRG 194 ==
LOC: C.ER 17:47 → C.9E 20:51 → C.5S 23:44
PROVIDERS: ADMIT Internal Medicine; ATTEND Internal Medicine
DX: J18.9 Pneumonia, unspecified organism (principal); I50.30 Unspecified diastolic (congestive) heart failure; J98.11 Atelectasis; G47.33 Obstructive sleep apnea (adult) (pediatric); E78.5 Hyperlipidemia, unspecified; E11.51 Type 2 diabetes mellitus with diabetic peripheral angiopathy without gangrene; I11.0 Hypertensive heart disease with heart failure; I25.10 Atherosclerotic heart disease of native coronary artery without angina pectoris; J45.909 Unspecified asthma, uncomplicated; K40.90 Unilateral inguinal hernia, without obstruction or gangrene, not specified as recurrent; K57.90 Diverticulosis of intestine, part unspecified, without perforation or abscess without bleeding; K59.00 Constipation, unspecified; B37.9 Candidiasis, unspecified; G89.29 Other chronic pain; R13.10 Dysphagia, unspecified; E78.00 Pure hypercholesterolemia, unspecified; K21.9 Gastro-esophageal reflux disease without esophagitis

== ENCOUNTER 2018-11-03 09:26 | Outpatient (CLI) | payer MEDICARE | END 2018-11-03 09:27 | disposition home or self-care (01) | LOC: C.CARD 09:26 | DX: I25.10 Atherosclerotic heart disease of native coronary artery without angina pectoris (principal); I95.1 Orthostatic hypotension; E11.9 Type 2 diabetes mellitus without complications ==

== ENCOUNTER 2018-11-22 12:11 | Inpatient (IN) | payer MEDICARE ==
[2018-11-22 12:11] VITALS: BMI 29.9
[2018-11-22 13:00] LABS: BASO # 0.1 K/uL (0.0-0.2); EOS % 0.5 % (0.0-4.0); LYMPH # 1.6 K/uL (1.0-4.3); LYMPH % 16.9 % (20.0-40.0); MEAN CELL VOLUME 78.4 fL (80.0-94.0); MEAN CORPUSCULAR HEMOGLOBIN 24.7 pg (27.0-31.0); MEAN CORPUSCULAR HGB CONC 31.6 g/dL (33.0-37.0); MEAN PLATELET VOLUME 8.5 fL (7.2-11.7); MONO % 11.3 % (0.0-10.0); NEUT # 6.5 K/uL (1.8-7.0); NEUT % 70.3 % (50.0-75.0); NRBC % 0.2 % (0.0-2.0); RBC 4.3 Mil/uL (4.40-5.90); RED CELL DISTRIBUTION WIDTH 17.9 % (11.5-14.5); WHITE BLOOD COUNT 9.2 K/uL (4.8-10.8)
[2018-11-22 13:05] LABS: HEMOGLOBIN 10.6 g/dL (12.0-18.0)
[2018-11-22 13:10] LABS: INR 1.3
[2018-11-22 13:16] LABS: ALB/GLOB RATIO 1.2 (1.0-2.1); ALBUMIN 3.7 g/dL (3.5-5.0); ALT/SGPT 19 U/L (21-72); AST/SGOT 28 U/L (17-59); BLOOD UREA NITROGEN 22 mg/dL (9-20); CALCIUM 8.9 mg/dl (8.6-10.4); GFR NON-AFRICAN AMERICAN > 60
[2018-11-22 13:28] LABS: B-TYPE NATRIURETIC PEPTIDE 3240 pg/mL (0-900); CK-MB 2.05 ng/mL (0.0-3.38)
--- NOTE | 2018-11-22 14:12 | C.PDOC ---
History Of Present Illness 58 y/o male presents to the ER complaining of abdominal distention and shortness of breath which has been present for the past 1 week. Patient states that he has shortness of breath mainly with exertion. He is also complaining of intermittent left sided chest pain which has been present since yesterday. CP is nonradiating, nonpleuritic. He denies fever, chills, cough, palpitations, nausea, vomiting, diarrhea, dysuria, rashes. PMHx: DM II, gastritis, HTN, hyperlipidemia, depression, pneumonia, anemia, CAD with stent, CABG Time Seen by Provider: 11/22/18 12:35 Chief Complaint (Nursing): Abdominal Pain History Per: Patient History/Exam Limitations: no limitations Onset/Duration Of Symptoms: Days Current Symptoms Are (Timing): Still Present Severity: Moderate Radiation Of Pain To:: None Quality Of Discomfort: "Pain" Associated Symptoms: denies: Fever, Chills, Nausea, Vomiting, Diarrhea, Urinary Symptoms Past Medical History Reviewed: Historical Data, Nursing Documentation, Vital Signs Vital Signs: Last Vital Signs Temp 97.1 F L 11/22/18 12:25 Pulse 76 11/22/18 12:25 Resp 23 11/22/18 12:25 BP 115/46 L 11/22/18 12:25 Pulse Ox 96 11/22/18 12:25 - Medical History PMH: Anemia, Depression, Diabetes, Gastritis, HTN, Hypercholesterolemia, Hyperlipidemia, Pneumonia Surgical History: CABG (2003), Coronary Stent (2010), Endoscopy Family History: States: No Known Family Hx - Social History Hx Tobacco Use: No Hx Alcohol Use: No Hx Substance Use: No - Immunization History Hx Tetanus Toxoid Vaccination: No Hx Influenza Vaccination: Yes Hx Pneumococcal Vaccination: Yes Review Of Systems Constitutional: Negative for: Fever, Chills Cardiovascular: Positive for: Chest Pain. Negative for: Palpitations Respiratory: Positive for: Shortness of Breath, SOB with Excertion. Negative for: Cough, Wheezing Gastrointestinal: Positive for: Other (abdominal distention). Negative for: Nausea, Vomiting, Abdominal Pain, Diarrhea Genitourinary: Negative for: Dysuria, Hematuria Musculoskeletal: Negative for: Arm Pain Neurological: Negative for: Headache, Dizziness Physical Exam - Physical Exam Appears: Non-toxic, In Acute Distress (in mild discomfort), Chronically Ill, Other (speaking in full sentences) Skin: Normal Color, Warm, Dry Head: Normacephalic Eye(s): bilateral: Normal Inspection Oral Mucosa: Moist Neck: Supple Chest: Other (midline sternotomy scar ) Cardiovascular: Rhythm Regular Respiratory: No Accessory Muscle Use, Rales (bilateral rales, greater at bases ), No Rhonchi, No Wheezing Gastrointestinal/Abdominal: Soft, Tenderness (mild LLQ tenderness to palpation), Distention (mild distention), Other (obese, (-) McBurney's, (-) Hernandez's) Back: No CVA Tenderness Extremity: Normal ROM, Pedal Edema (+ 2 pitting edema B/L LEs), No Calf Tenderness Pulses: Left Dorsalis Pedis: Normal, Right Dorsalis Pedis: Normal Neurological/Psych: Oriented x3 ED Course And Treatment - Laboratory Results Result Diagrams: 11/29/18 07:42 11/29/18 07:42 Lab Results: PT 14.0 SECONDS (9.7-12.2) H 11/22/18 12:56 INR 1.3 11/22/18 12:56 APTT 38 SECONDS (21-34) H 11/22/18 12:56 Troponin I 0.0890 ng/mL (0.00-0.120) 11/22/18 12:56 NT-Pro-B Natriuret Pep 3240 pg/mL (0-900) H 11/22/18 12:56 Total Bilirubin 0.7 mg/dL (0.2-1.3) 11/22/18 12:56 AST 28 U/L (17-59) 11/22/18 12:56 ALT 19 U/L (21-72) L D 11/22/18 12:56 Alkaline Phosphatase 116 U/L (38-126) 11/22/18 12:56 Total Protein 6.7 g/dL (6.3-8.3) 11/22/18 12:56 Albumin 3.7 g/dL (3.5-5.0) 11/22/18 12:56 Globulin 3.0 gm/dL (2.2-3.9) 11/22/18 12:56 Albumin/Globulin Ratio 1.2 (1.0-2.1) 11/22/18 12:56 ECG: Interpreted By Me, Viewed By Me (NSR 72 bpm, normal axis, T wave inversions I, II, aVL, V2, V5, V6, no acute ST changes) ECG Rhythm: Sinus Rhythm ECG Interpretation: Abnormal O2 Sat by Pulse Oximetry: 96 (RA) Pulse Ox Interpretation: Normal - Radiology CXR: Interpreted by Me, Viewed By Me CXR Interpretation: No: Infiltrates Progress Note: Blood work, EKG, CXR ordered and reviewed. Patient given PO ASA, IV Lasix. - Physician Consult Information Physician Contacted: Adalberto White Outcome Of Conversation: Discussed patient with hospitalist, agrees with obs telemetry for chest pain, dyspnea, CHF exacerbation. Disposition - Disposition Disposition: HOSPITALIZED Disposition Time: 15:29 Condition: STABLE - Clinical Impression Clinical Impression: CHF (congestive heart failure), Dyspnea, Chest pain - Scribe Statement The provider has reviewed the documentation as recorded by the Elidaibe Ava Hu Provider Attestation: All medical record entries made by the Scribe were at my direction and personally dictated by me. I have reviewed the chart and agree that the record accurately reflects my personal performance of the history, physical exam, medical decision making, and the department course for this patient. I have also personally directed, reviewed, and agree with the discharge instructions and d isposition. Decision To Admit - Pt Status Changed To: Hospital Disposition Of: Observation - . Bed Request Type: Telemetry Admitting Physician: Adalberto White Patient Diagnosis: CHF (congestive heart failure), Dyspnea, Chest pain
--- NOTE | 2018-11-22 14:17 | RAD ---
Date of service: 11/22/2018 PROCEDURE: CHEST RADIOGRAPH, 1 VIEW HISTORY: SOB COMPARISON: 09/23/2018 FINDINGS: LUNGS: Clear. PLEURA: No pneumothorax or pleural fluid seen. CARDIOVASCULAR: No aortic atherosclerotic calcification present. Cardiomegaly. No evidence of acute, significant cardiovascular disease. OSSEOUS STRUCTURES: No significant abnormalities. VISUALIZED UPPER ABDOMEN: Normal. OTHER FINDINGS: None. IMPRESSION: No active disease.No significant interval change compared to the prior examination(s).
--- NOTE | 2018-11-22 15:59 | CP.PCM.HP ---
<Arvind Zuluaga - Last Filed: 11/22/18 18:18> History of Present Illness - History of Present Illness History of Present Illness: PGY1 Medicine H and P for Hospitalist service cc: Shortness of breath HPI: Patient is a 58 year old Male with pmhx of CAD with CABG 2003, stent 2010, DM2, PVD, Hyperlipidemia, angina, HTN, gastritis, asthma, GASTON that came to the ED for shortness of breath, chest pain, and abdomen enlargement and pain. He describes SOB as dyspnea on exertion after walking for 1/2 a block, having difficulty catching his breath. He denies SOB at rest. It has been worsening over the past 1 week. His chest pain has been present for 1 week. He describes the pain as sharp, localized to the left of the sternum with no radiation of pain, and is worsened by palpation of the area, and when he takes deep breaths. Patient noticed his abdomen enlarging with worsened pain over the past 3 days. When asked to locate the pain, he points to his LLQ with no radiation of the pa in. He describes the pain as "pressure" and "stretching." He states that he has normal BM's, last BM being this morning with soft stool and no blood. He endorses waking up with the bed wet for the past 3 days, but denies any incontinence while awake. He also endorses lower extremity swelling, worsening over the past week. He admits to dizziness at times, but is inconsistent as to when he has it and only says "sometimes." Denies fever, chills, n/v/d, hematochezia, melena, falls, syncope, blurry vision, headache. Endorses Orthopnea for many years, and uses 1 pillows. He endorses waking up gasping for air multiple times per night is not always compliant with his CPAP. He endorses numbness and tingling of the left hand when he sleeps. Recently diagnosed (09/2018) with multifocal pneumonia and treated. Patient saw his opticianry teacher Dr. Lebron approximated 4 weeks ago, and was advised to use Breo and Albuterol He denies using the inhaler when dyspnea is triggered. Recently saw his cardiology, 2 weeks ago, who did not change any medications. Cardio: [facility]y Pulm: [facility] GI: [facility] PMH: as stated in HPI PSH: CABG (2003), Coronary Stent (2010) Meds: as per MAR Allx: NKDA FHx: Heart disease ( several members) SHx: denies smoking, alcohol or drug use. Retired. Present on Admission - Present on Admission Any Indicators Present on Admission: No Review of Systems - Review of Systems All systems: reviewed and no additional remarkable complaints except (as per HPI) Past Patient History - Infectious Disease Hx of Infectious Diseases: None - Past Medical History & Family History Past Medical History?: Yes - Past Social History Smoking Status: Never Smoked - CARDIAC Hx Hypercholesterolemia: Yes Hx Hypertension: Yes - PULMONARY Hx Pneumonia: Yes - NEUROLOGICAL Hx Neurological Disorder: No - HEENT Hx HEENT Problems: No - RENAL Hx Chronic Kidney Disease: No - ENDOCRINE/METABOLIC Hx Endocrine Disorders: Yes Hx Diabetes Mellitus Type 2: Yes - HEMATOLOGICAL/ONCOLOGICAL Hx Anemia: Yes - INTEGUMENTARY Hx Dermatological Problems: No - MUSCULOSKELETAL/RHEUMATOLOGICAL Hx Musculoskeletal Disorders: No Hx Falls: No - GASTROINTESTINAL Hx Gastritis: Yes - GENITOURINARY/GYNECOLOGICAL Hx Genitourinary Disorders: No - PSYCHIATRIC Hx Depression: Yes Hx Substance Use: No - SURGICAL HISTORY Hx Coronary Artery Bypass Graft: Yes (2003) Hx Coronary Stent: Yes (2010) - ANESTHESIA Hx Anesthesia: Yes Hx Anesthesia Reactions: No Hx Malignant Hyperthermia: No Meds Allergies/Adverse Reactions: Allergies Allergy/AdvReac Type Severity Reaction Status Date / Time No Known Allergies Allergy Verified 11/22/18 12:24 Physical Exam - Constitutional Appears: Non-toxic, No Acute Distress - Head Exam Head Exam: ATRAUMATIC, NORMAL INSPECTION - Eye Exam Eye Exam: EOMI, Normal appearance - ENT Exam ENT Exam: Mucous Membranes Moist - Neck Exam Neck exam: Positive for: Normal Inspection - Respiratory Exam Respiratory Exam: Chest Wall Tenderness (left sternal reproducible pain), Rales (most prominent at the bases, scant at that upper lung granda). absent: Accessory Muscle Use, Decreased Breath Sounds, Rhonchi, Wheezes, Respiratory Distress (no conversational dyspnea), Stridor Additional comments: short expiratory phase - Cardiovascular Exam Cardiovascular Exam: REGULAR RHYTHM, +S1, +S2, +S4 (+S#). absent: Tachycardia - GI/Abdominal Exam GI & Abdominal Exam: Distended (ascites), Hernia (umbilical hernia), Normal Bowel Sounds, Soft, Tenderness (left upper and left lower quadrant tenderness). absent: Firm, Guarding, Rebound, Rigid - Extremities Exam Extremities exam: Positive for: normal capillary refill, pedal edema (2+ to the knee; right worse than left), pedal pulses present (1+). Negative for: calf tenderness - Back Exam Back exam: muscle spasm (of the cervical paravertebrals, with mild tenderness, left greater than right), NORMAL INSPECTION. absent: CVA tenderness (L), CVA tenderness (R), rash noted - Neurological Exam Neurological exam: Alert, CN II-XII Intact, Oriented x3 Additional comments: 5/5 motor strength bilateral upper and lower extremities downgoing babinski - Psychiatric Exam Psychiatric exam: Normal Affect, Normal Mood - Skin Skin Exam: Dry, Normal Color, Warm Results - Vital Signs Recent Vital Signs: Last Vital Signs Temp 97.1 F L 11/22/18 12:25 Pulse 67 11/22/18 15:18 Resp 20 11/22/18 15:18 BP 116/73 11/22/18 15:18 Pulse Ox 96 11/22/18 15:24 - Labs Result Diagrams: 11/22/18 12:56 11/22/18 12:56 Labs: Laboratory Results - last 24 hr 11/22/18 11/22/18 11/22/18 12:56 12:56 12:56 WBC 9.2 RBC 4.30 L Hgb 10.6 L D Hct 33.7 L MCV 78.4 L MCH 24.7 L MCHC 31.6 L RDW 17.9 H Plt Count 213 MPV 8.5 Neut % (Auto) 70.3 Lymph % (Auto) 16.9 L Mcdonald % (Auto) 11.3 H Eos % (Auto) 0.5 Baso % (Auto) 1.0 Neut # (Auto) 6.5 Lymph # (Auto) 1.6 Mcdonald # (Auto) 1.0 H Eos # (Auto) 0.0 Baso # (Auto) 0.1 PT 14.0 H INR 1.3 APTT 38 H Sodium 132 Potassium 5.0 Chloride 99 Carbon Dioxide 23 Anion Gap 14 BUN 22 H Creatinine 0.8 Est GFR ( Amer) > 60 Est GFR (Non-Af Amer) > 60 Random Glucose 122 H D Calcium 8.9 Total Bilirubin 0.7 AST 28 ALT 19 L D Alkaline Phosphatase 116 Total Creatine Kinase 49 L CK-MB (Mass) 2.05 Troponin I 0.0890 NT-Pro-B Natriuret Pep 3240 H Total Protein 6.7 Albumin 3.7 Globulin 3.0 Albumin/Globulin Ratio 1.2 Assessment & Plan - Assessment and Plan (Free Text) Assessment: Patient is a 58 year old Male with pmhx of CAD with CABG 2003, stent 2010, DM2, PVD, Hyperlipidemia, angina, HTN, gastritis that came to the ED for dyspnea on exertion, chest pain, and abdomen enlargement and pain. Plan: Chest pain secondary to CHF exacerbation Pt has significant cardiac risk factors and hx of CAD Will monitor on telemetry Troponin x1 is negative, will trend q6h x2 with EKGs Pt received ASA 325 mg PO in the ED HFpEF exacerbation, acute on chronic CXR with pulmonary vascular congestion, no infiltrate, s/p CABG. S/p Lasix 20 mg IVP in the ED BNP on admission is 3240 Lasix 20 mg IVP q12 Continue home Losartan 25 mg Metoprolol succinate 12.5 mg PO daily will start tomorrow Fluid restriction 1.5L Daily Is and Os Cardiology, Dr. Yan, consulted. Recommendations appreciated. Hx of asthma, GASTON Duoneb q6h prn Continue home breo CPAP at 14 cm H2o at night Pulmonology Dr. Akers, consulted. Recommendations appreciated. Abdominal distension with pain Abd CT in 09/2018 shows few scattered colonic diverticuli without evidence of diverticulitis. Patchy B/L lower infiltrates. Umbilical and inguinal hernia with fat. Diffuse constipation. Abd CT angiogram 09/2018 shows diffuse constipation no evidence of ischemia. Sennakot PO daily F/u abdominal obstructive series Pt reports he saw Dr. Alvarado today. Will call him in am. Hx of CAD with CABG and stent Myocardial perfusion scan 11/03/2018 shows normal myocardial perfusion test. Small fixed inferior defect. No ischemia. Echo 08/17/2018 shows normal LV, dilated LA. trace to mild AR, TR. Continue ASA 81 mg PO daily, continue Crestor 10 mg PO daily, beta valarie NIDDM2 HgbA1c is 6.8 on 09/2018 Accuchecks ACHS RISS low Hypoglycemia protocol Prior history of multifocal pnuemonia CT chest angio 09/2018 showed pulmonary infiltrates, no evidence of PE. He completed a course of doxycycline PO Hx of PAD/PVD Continue home cilostazol Hx of gastritis Continue home protonix 40 mg PO daily Hx of cervical neuropathy/diabetic neuropathy Continue home duloxetine 60 mg PO BID, gabapentin 100 mg PO BID PPx: GI ppx with protonix 40 mg PO daily VTE ppx with Heparin 5000 sc q12 HHD, CCD with 1.5L fluid restriction PT/OT eval Case discussed with Dr. Elva Zuluaga PGY1 <Erica Stevenson V - Last Filed: 11/25/18 14:27> Results - Vital Signs Recent Vital Signs: Last Vital Signs Temp 99.1 F 11/25/18 07:00 Pulse 94 H 11/25/18 08:00 Resp 18 11/25/18 07:00 BP 109/65 11/25/18 10:07 Pulse Ox 95 11/25/18 07:00 - Labs Result Diagrams: 11/25/18 07:02 11/25/18 07:02 Labs: Laboratory Results - last 24 hr 11/24/18 11/24/18 11/25/18 10:58 16:56 06:13 WBC RBC Hgb Hct MCV MCH MCHC RDW Plt Count MPV Neut % (Auto) Lymph % (Auto) Mcdonald % (Auto) Eos % (Auto) Baso % (Auto) Neut # (Auto) Lymph # (Auto) [place]cdonald # (Auto) Eos # (Auto) Baso # (Auto) Neutrophils % (Manual) Band Neutrophils % Lymphocytes % (Manual) Monocytes % (Manual) Toxic Granulation Platelet Estimate Large Platelets Polychromasia Hypochromasia (manual) Anisocytosis (manual) Microcytosis (manual) Sodium Potassium Chloride Carbon Dioxide Anion Gap BUN Creatinine Est GFR ( Amer) Est GFR (Non-Af Amer) POC Glucose (mg/dL) 178 H 124 H 95 Random Glucose Calcium Phosphorus Magnesium Total Bilirubin AST ALT Alkaline Phosphatase NT-Pro-B Natriuret Pep Total Protein Albumin Globulin Albumin/Globulin Ratio 11/25/18 11/25/18 07:02 07:02 WBC 6.3 RBC 4.78 Hgb 11.5 L Hct 36.7 MCV 76.8 L MCH 24.1 L MCHC 31.3 L RDW 17.3 H Plt Count 199 MPV 8.3 Neut % (Auto) 79.0 H Lymph % (Auto) 6.9 L Mcdonald % (Auto) 13.1 H Eos % (Auto) 0.5 Baso % (Auto) 0.5 Neut # (Auto) 5.0 Lymph # (Auto) 0.4 L Mcdonald # (Auto) 0.8 Eos # (Auto) 0.0 Baso # (Auto) 0.0 Neutrophils % (Manual) 77 H Band Neutrophils % 1 Lymphocytes % (Manual) 7 L Monocytes % (Manual) 15 H Toxic Granulation Present Platelet Estimate Normal Large Platelets Present Polychromasia Slight Hypochromasia (manual) Moderate Anisocytosis (manual) Slight Microcytosis (manual) Slight Sodium 134 Potassium 3.5 L Chloride 97 L Carbon Dioxide 30 Anion Gap 11 BUN 25 H Creatinine 0.8 Est GFR ( Amer) > 60 Est GFR (Non-Af Amer) > 60 POC Glucose (mg/dL) Random Glucose 92 Calcium 9.1 Phosphorus 3.5 Magnesium 2.0 Total Bilirubin 1.0 AST 30 ALT 31 Alkaline Phosphatase 89 NT-Pro-B Natriuret Pep 1480 H Total Protein 6.9 Albumin 3.8 Globulin 3.2 Albumin/Globulin Ratio 1.2 Attending/Attestation - Attestation I have personally seen and examined this patient.: Yes I have fully participated in the care of the patient.: Yes I have reviewed all pertinent clinical information: Yes Notes (Text): This is late computer entry for 11/22/18. Patient seen, examined, and case discussed with day-time resident. Patient reporting shortness of breathe and dyspnea on exertion in light of significant cardiac and pulmonary comorbdities. Discussed admitting orders with the resident at time of admission. Cardiology and pulm consults. Assessment/Plan 1. Chest pain secondary to acute on chronic CHF exacerbation Assessment/Plan * obs/tele * Cardiology (Dr. Yan) on consult help appreciated * Pt has significant cardiac risk factors including history of CABG, CHF, GASTON, DM, CAD, DM * Troponin x1 is negative, will trend q6h x2 with EKGs * Pt received ASA 325 mg PO in the ED * elevated probnp * Aspirin 81mg po daily * Lasix 20mg IV Q12H * Toprol 12.5mg PO daily * Cozaar 25mg PO daily * Crestor 10mg PoqHS * Will order echo * Echo (08/25): normal V systolic function, dilated LA, trace to mild AR, and trace to mild TR * Myocardial Stress (11/03/18); small fixed inferior defect. No stress induced ischemia. Normal EF. * Chest xray (11/22/18): no active disease. no significant interval change compared ot the prior examination 2. HFpEF exacerbation, acute on chronic Assessment/Plan * obs/tele * Cardiology (Dr. Yan) on consult help appreciated * Pt has significant cardiac risk factors including history of CABG, CHF, GASTON, DM, CAD, DM * Troponin x1 is negative, will trend q6h x2 with EKGs * Pt received ASA 325 mg PO in the ED * elevated probnp * Aspirin 81mg po daily * Lasix 20mg IV Q12H * Toprol 12.5mg PO daily * Cozaar 25mg PO daily * Crestor 10mg PoqHS * Will order echo * Echo (08/25): normal V systolic function, dilated LA, trace to mild AR, and trace to mild TR * Myocardial Stress (11/03/18); small fixed inferior defect. No stress induced ischemia. Normal EF. * Chest xray (11/22/18): no active disease. no significant interval change c ompared ot the prior examination * Fluid restriction * Daily Weight 3. Hx of asthma,, history ofOSA Assessment/Plan * Pulm Dr. kAers, consulted. Recommendations appreciated. * patient recommended to using autopap; does not use it; discussed with pulm noted noncompliance * Duoneb q6h prn * Breo Ellipta 1p uff inhaled RQDaily * CPAP at 14 cm H2o at night 4. Abdominal distension with pain History of Gastritis Small hiatus hernia Assessment/Plan * Patient had visited his GI this morning day of admission; attempted to call awaiting call back * prior hospitalization: * Abd CT in 09/2018 shows few scattered colonic diverticuli without evidence of diverticulitis. Patchy B/L lower infiltrates. Umbilical and inguinal h ernia with fat. Diffuse constipation. * Abd CT angiogram 09/2018 shows diffuse constipation no evidence of ischemia. * Sennakot PO daily * F/u abdominal obstructive series * Prior EGD (11/2016) available in the EMR 5. Hx of CAD with CABG and stent Assessment/Plan * Cardiology (Dr. Yan) on consult help appreciated * Aspirin 81mg po daily * Lasix 20mg IV Q12H * Toprol 12.5mg PO daily * Cozaar 25mg PO daily * Crestor 10mg PoqHS * Will order echo * Myocardial perfusion scan 11/03/2018 shows normal myocardial perfusion test. Small fixed inferior defect. No ischemia. * Echo 08/17/2016 shows normal LV, dilated LA. trace to mild AR, TR. 6. NIDDM2 Assessment/Plan * HgbA1c is 6.8 on 09/2018 * Accuchecks ACHS * RISS low * Hypoglycemia protocol * Aspirin 81mg po daily * Crestor 10mg PoqHS 7. Prior history of multifocal pneumonia Assessment/Plan * Recent hospitalization * CT chest angio 09/2018 showed pulmonary infiltrates, no evidence of PE. * He completed a course of doxycycline upon discharge * Afebrile, no white count 8. Hx of PAD/PVD Assessment/Plan * Continue home cilostazol 50mg PO BID * Continue ASA 81mg Po daily 9. Hx of gastritis Assessment/Plan * Continue home protonix 40 mg PO daily 9. Hx of cervical neuropathy/diabetic neuropathy Assessment/Plan * Continue home duloxetine 60 mg PO BID, gabapentin 100 mg PO BID 10. Leg edema Assessment/Plan * attributed to chf exacerbation 11. PPx: * GI ppx with protonix 40 mg PO daily * VTE ppx with Heparin 5000 sc q12 * HHD, CCD with 1.5L fluid restriction * PT/OT eval * monitor telemetry
[2018-11-22] MEDS ORDERED: Dextrose 50% SYRINGE Inj (50 ml) IV PRN (16:04)
[2018-11-22] MEDS ORDERED: Glucagon Recombinant 1 mg Inj IM PRN (16:04)
[2018-11-22] MEDS: (Novolin R) Insulin Human Regular 100 units/ml vial SC SCH ×2 (17:56→22:14)
--- NOTE | 2018-11-22 18:07 | CP.PCM.CON ---
History of Present Illness - History of Present Illness History of Present Illness: 58 y/o male presents to the ER complaining of abdominal distention and shortness of breath which has been present for the past 1 week. Patient states that he has shortness of breath mainly with exertion. Patient is also complaining of intermittent left sided chest pain which has been present since yesterday. Denies having fever, chills, cough, palpitations, nausea, vomiting, diarrhea, and dysuria. Pulmonary consult is called for dyspnea in a patient with a history of asthma and obstructive sleep apnea. Patient denies any fever, chills, night sweats, hemoptysis or weight loss. He reports to be compliant with the use of bronchodilators. Review of Systems - Review of Systems All systems: reviewed and no additional remarkable complaints except (As mentioned in HPI) Past Patient History - Infectious Disease Hx of Infectious Diseases: None - Past Medical History & Family History Past Medical History?: Yes - Past Social History Smoking Status: Never Smoked - CARDIAC Hx Hypercholesterolemia: Yes Hx Hypertension: Yes - PULMONARY Hx Pneumonia: Yes - NEUROLOGICAL Hx Neurological Disorder: No - HEENT Hx HEENT Problems: No - RENAL Hx Chronic Kidney Disease: No - ENDOCRINE/METABOLIC Hx Endocrine Disorders: Yes Hx Diabetes Mellitus Type 2: Yes - HEMATOLOGICAL/ONCOLOGICAL Hx Anemia: Yes - INTEGUMENTARY Hx Dermatological Problems: No - MUSCULOSKELETAL/RHEUMATOLOGICAL Hx Musculoskeletal Disorders: No Hx Falls: No - GASTROINTESTINAL Hx Gastritis: Yes - GENITOURINARY/GYNECOLOGICAL Hx Genitourinary Disorders: No - PSYCHIATRIC Hx Depression: Yes Hx Substance Use: No - SURGICAL HISTORY Hx Coronary Artery Bypass Graft: Yes (2003) Hx Coronary Stent: Yes (2010) - ANESTHESIA Hx Anesthesia: Yes Hx Anesthesia Reactions: No Hx Malignant Hyperthermia: No Meds Allergies/Adverse Reactions: Allergies Allergy/AdvReac Type Severity Reaction Status Date / Time No Known Allergies Allergy Verified 11/22/18 12:24 - Medications Medications: Current Medications Dextrose (Dextrose 50% Inj) 0 ml IV STAT PRN; Protocol PRN Reason: Hypoglycemia Protocol Dextrose (Glutose 15) 0 gm PO ONCE PRN; Protocol PRN Reason: Hypoglycemia Protocol Glucagon (Glucagen Diagnostic Kit) 0 mg IM STAT PRN; Protocol PRN Reason: Hypoglycemia Protocol Dextrose (Dextrose 5% In Water 1000 Ml) 1,000 mls @ 0 mls/hr IV .Q0M PRN; Prot ocol PRN Reason: Hypoglycemia Protocol Insulin Human Regular (Novolin R) 0 unit SC ACHS [facility]; Protocol Last Admin: 11/22/18 17:56 Dose: Not Given Physical Exam - Head Exam Head Exam: NORMAL INSPECTION - Eye Exam Eye Exam: Normal appearance - ENT Exam ENT Exam: Mucous Membranes Moist - Respiratory Exam Respiratory Exam: Clear to Auscultation Bilateral - Cardiovascular Exam Cardiovascular Exam: REGULAR RHYTHM, +S1, +S2 - GI/Abdominal Exam GI & Abdominal Exam: Normal Bowel Sounds, Soft - Extremities Exam Extremities exam: Positive for: normal inspection Results - Vital Signs Recent Vital Signs: Last Vital Signs Temp 97.5 F L 11/22/18 16:50 Pulse 68 11/22/18 16:50 Resp 18 11/22/18 16:50 BP 133/78 11/22/18 16:50 Pulse Ox 97 11/22/18 16:50 - Labs Result Diagrams: 11/24/18 06:19 11/24/18 06:19 Labs: Laboratory Results - last 24 hr 11/22/18 11/22/18 11/22/18 12:56 12:56 12:56 WBC 9.2 RBC 4.30 L Hgb 10.6 L D Hct 33.7 L MCV 78.4 L MCH 24.7 L MCHC 31.6 L RDW 17.9 H Plt Count 213 MPV 8.5 Neut % (Auto) 70.3 Lymph % (Auto) 16.9 L [place] % (Auto) 11.3 H Eos % (Auto) 0.5 Baso % (Auto) 1.0 Neut # (Auto) 6.5 Lymph # (Auto) 1.6 [place] # (Auto) 1.0 H Eos # (Auto) 0.0 Baso # (Auto) 0.1 PT 14.0 H INR 1.3 APTT 38 H Sodium 132 Potassium 5.0 Chloride 99 Carbon Dioxide 23 Anion Gap 14 BUN 22 H Creatinine 0.8 Est GFR ( Amer) > 60 Est GFR (Non-Af Amer) > 60 Random Glucose 122 H D Calcium 8.9 Total Bilirubin 0.7 AST 28 ALT 19 L D Alkaline Phosphatase 116 Total Creatine Kinase 49 L CK-MB (Mass) 2.05 Troponin I 0.0890 NT-Pro-B Natriuret Pep 3240 H Total Protein 6.7 Albumin 3.7 Globulin 3.0 Albumin/Globulin Ratio 1.2 Assessment & Plan (1) Obstructive sleep apnea (adult) (pediatric) Status: Acute (2) Asthma Status: Acute (3) CHF (congestive heart failure) Status: Acute - Assessment and Plan (Free Text) Plan: Brio Ellipta Bronchodilators Lasix CPAP of 14 cm H2O Cardiac enzymes DVT/GI prophylaxis
[2018-11-22] MEDS ORDERED: Albuterol-Ipratrop 3 mg / 0.5 (3 ml) UD INH PRN (18:24)
[2018-11-22 20:34] LABS: CK-MB 1.98 ng/mL (0.0-3.38); TROPONIN I 0.162 ng/mL (0.00-0.120)
[2018-11-23 01:29] LABS: CK-MB 1.73 ng/mL (0.0-3.38); TROPONIN I 0.117 ng/mL (0.00-0.120)
--- NOTE | 2018-11-23 06:46 | CP.PCM.PN ---
<Arvind Zuluaga - Last Filed: 11/23/18 17:11> Subjective - Date & Time of Evaluation Date of Evaluation: 11/23/18 Time of Evaluation: 07:20 - Subjective Subjective: PGY1 Medicine progress note for Dr. Stevenson Pt was seen and examined at bedside. Pt is resting comfortably. He did not use the CPAP at night because the "pressure was too high." He reports some SOB last night, which went away on its own. He continues to have left sternal musculoskeletal pain, and is now complaining of lower back pain. He states his abdomen still feels distended and he still has the left sided pressure/stretching sensation. Denies fever, chills, headache, dizziness, lightheadedness, vision changes, n/v. He denies having any BMs since coming to the hospital but has been urinating normally, and has not wet the bed. His left hand numbness has improved. Objective - Vital Signs/Intake and Output Vital Signs (last 24 hours): Temp Pulse Resp BP Pulse Ox 98.2 F 64 20 137/64 98 11/23/18 04:31 11/23/18 04:31 11/23/18 04:31 11/23/18 04:31 11/23/18 05:55 - Medications Medications: Current Medications Albuterol/Ipratropium (Duoneb 3 Mg/0.5 Mg (3 Ml) Ud) 3 ml INH RQ6 PRN PRN Reason: Shortness of Breath Aspirin (Ecotrin) 81 mg PO DAILY [facility] Cilostazol (Pletal) 50 mg PO BID [facility] Dextrose (Dextrose 50% Inj) 0 ml IV STAT PRN; Protocol PRN Reason: Hypoglycemia Protocol Dextrose (Glutose 15) 0 gm PO ONCE PRN; Protocol PRN Reason: Hypoglycemia Protocol Duloxetine HCl (Cymbalta) 60 mg PO DAILY [facility] Fluticasone/Vilanterol (Breo Ellipta 100-25 Mcg Inh) 1 puff INH RQD [facility] Furosemide (Lasix) 20 mg IVP Q12 [facility] Last Admin: 11/22/18 21:59 Dose: 20 mg Gabapentin (Neurontin) 100 mg PO BID [facility] Glucagon (Glucagen Diagnostic Kit) 0 mg IM STAT PRN; Protocol PRN Reason: Hypoglycemia Protocol Heparin Sodium (Porcine) (Heparin) 5,000 units SC Q12 [facility] Last Admin: 11/22/18 22:00 Dose: 5,000 units Dextrose (Dextrose 5% In Water 1000 Ml) 1,000 mls @ 0 mls/hr IV .Q0M PRN; Protocol PRN Reason: Hypoglycemia Protocol Insulin Human Regular (Novolin R) 0 unit SC ACHS [facility]; Protocol Last Admin: 11/22/18 22:14 Dose: Not Given Losartan Potassium (Cozaar) 25 mg PO DAILY [facility] Metoprolol Succinate (Toprol Xl) 12.5 mg PO DAILY [facility] Pantoprazole Sodium (Protonix Ec Tab) 40 mg PO DAILY [facility] Rosuvastatin Calcium (Crestor) 10 mg PO HS [facility] Last Admin: 11/22/18 21:59 Dose: 10 mg Senna/Docusate Sodium (Senokot S 50 Mg-8.6 Mg) 1 tab PO DAILY [facility] - Labs Labs: 11/22/18 12:56 11/22/18 12:56 PT 14.0 SECONDS (9.7-12.2) H 11/22/18 12:56 INR 1.3 11/22/18 12:56 APTT 38 SECONDS (21-34) H 11/22/18 12:56 - Additional Findings Additional findings: - Constitutional Appears: Non-toxic, No Acute Distress - Head Exam Head Exam: ATRAUMATIC, NORMAL INSPECTION - Eye Exam Eye Exam: EOMI, Normal appearance - ENT Exam ENT Exam: Mucous Membranes Moist - Neck Exam Neck exam: Positive for: Normal Inspection - Respiratory Exam Respiratory Exam: Chest Wall Tenderness (left sternal reproducible pain), Rales (at the bases). absent: Accessory Muscle Use, Decreased Breath Sounds, Rhonchi, Wheezes, Respiratory Distress (no conversational dyspnea), Stridor Additional comments: short expiratory phase - Cardiovascular Exam Cardiovascular Exam: REGULAR RHYTHM, +S1, +S2, +S4 (+S3). absent: Tachycardia - GI/Abdominal Exam GI & Abdominal Exam: Distended (ascites), Hernia (umbilical hernia), Normal Bowel Sounds, Soft, Tenderness (left upper and left lower quadrant tenderness). absent: Firm, Guarding, Rebound, Rigid - Extremities Exam Extremities exam: Positive for: normal capillary refill, pedal edema (2+ to the midshin, 1+ from mid barone to knee; right worse than left), pedal pulses present (1+). Negative for: calf tenderness - Back Exam Back exam: muscle spasm (of the cervical paravertebrals, milld tenderness left g reater than right. hypertonicity of the lumbar paravertebrals, with mild tenderness bilaterally), NORMAL INSPECTION. absent: CVA tenderness (L), CVA tenderness (R), rash noted, midline tenderness - Neurological Exam Neurological exam: Alert, CN II-XII Intact, Oriented x3 Additional comments: 5/5 motor strength bilateral upper and lower extremities downgoing babinski - Psychiatric Exam Psychiatric exam: Normal Affect, Normal Mood - Skin Skin Exam: Dry, Normal Color, Warm Assessment and Plan - Assessment and Plan (Free Text) Assessment: Patient is a 58 year old Male with pmhx of CAD with CABG 2003, stent 2010, DM2, PVD, Hyperlipidemia, angina, HTN, gastritis that came to the ED for dyspnea on exertion, chest pain, and abdomen enlargement and pain. Plan: Chest pain secondary to CHF exacerbation Pt has significant cardiac risk factors and hx of CAD Will monitor on telemetry Troponin is 0.0890-->0.1620-->0.1170 Cardiology, Dr. Yan, consulted. HFpEF exacerbation, acute on chronic CXR with pulmonary vascular congestion, no infiltrate, s/p CABG. BNP on admission is 3240 Lasix 20 mg IVP q12 Continue home Losartan 25 mg Metoprolol succinate 12.5 mg PO daily will start tomorrow Fluid restriction 1.5L Daily Is and Os Cardiology, Dr. Yan, consulted. Recommendations appreciated. Possible cath tomorrow morning F/u echocardiogram Hx of asthma, GASTON Duoneb q6h prn Continue home breo CPAP at 14 cm H2o at night. Will reduce inspiratory pressure tonight. Stressed importance of need for CPAP for GASTON Pulmonology Dr. Akers, consulted. Recommendations appreciated. Abdominal distension with pain Abd CT in 09/2018 shows few scattered colonic diverticuli without evidence of diverticulitis. Patchy B/L lower infiltrates. Umbilical and inguinal hernia with fat. Diffuse constipation. Abd CT angiogram 09/2018 shows diffuse constipation no evidence of ischemia. Sennakot PO daily Abdominal obstructive series shows no evidence of bowel obstruction. Pt reports he saw GI, Dr. Alvarado, 11/22/18. case discussed with Dr. Alvarado, who reports pt went there to complain of abdominal pain but was sent to the ED after complaints of chest pain. Pt's abdominal pain is chronic as per Dr. Alvarado. Hx of CAD with CABG and stent Myocardial perfusion scan 11/03/2018 shows normal myocardial perfusion test. Small fixed inferior defect. No ischemia. Echo 08/17/2018 shows normal LV, dilated LA. trace to mild AR, TR. Continue ASA 81 mg PO daily, continue Crestor 10 mg PO daily, beta valarie Cath tomorrow morning as per Dr. Yan NIDDM2 HgbA1c is 6.8 on 09/2018 Accuchecks ACHS RISS low Hypoglycemia protocol Prior history of multifocal pnuemonia CT chest angio 09/2018 showed pulmonary infiltrates, no evidence of PE. He completed a course of doxycycline PO Hx of PAD/PVD Continue home cilostazol 50 mg PO daily Hx of gastritis Continue home protonix 40 mg PO daily Hx of cervical neuropathy/diabetic neuropathy Continue home duloxetine 60 mg PO BID, gabapentin 100 mg PO BID PPx: GI ppx with protonix 40 mg PO daily VTE ppx with Heparin 5000 sc q12 HHD, CCD with 1.5L fluid restriction PT/OT eval Case discussed with Dr. Elva Zuluaga PGY1 <Erica Stevenson V - Last Filed: 11/25/18 14:35> Objective - Vital Signs/Intake and Output Vital Signs (last 24 hours): Temp Pulse Resp BP Pulse Ox 99.1 F 94 H 18 109/65 95 11/25/18 07:00 11/25/18 08:00 11/25/18 07:00 11/25/18 10:07 11/25/18 07:00 Intake and Output: 11/25/18 11/25/18 06:59 18:59 Output Total 300 Balance -300 - Medications Medications: Current Medications Albuterol/Ipratropium (Duoneb 3 Mg/0.5 Mg (3 Ml) Ud) 3 ml INH RQ6 PRN PRN Reason: Shortness of Breath Aspirin (Ecotrin) 81 mg PO DAILY [facility] Last Admin: 11/25/18 10:07 Dose: 81 mg Cilostazol (Pletal) 50 mg PO BID [facility] Last Admin: 11/25/18 10:08 Dose: 50 mg Dextrose (Dextrose 50% Inj) 0 ml IV STAT PRN; Protocol PRN Reason: Hypoglycemia Protocol Dextrose (Glutose 15) 0 gm PO ONCE PRN; Protocol PRN Reason: Hypoglycemia Protocol Duloxetine HCl (Cymbalta) 60 mg PO DAILY [facility] Last Admin: 11/25/18 10:08 Dose: 60 mg Fluticasone/Vilanterol (Breo Ellipta 100-25 Mcg Inh) 1 puff INH RQD [facility] Last Admin: 11/25/18 10:55 Dose: 1 puff Furosemide (Lasix) 20 mg IVP Q12 [facility] Last Admin: 11/25/18 10:07 Dose: 20 mg Gabapentin (Neurontin) 100 mg PO BID [facility] Last Admin: 11/25/18 10:07 Dose: 100 mg Glucagon (Glucagen Diagnostic Kit) 0 mg IM STAT PRN; Protocol PRN Reason: Hypoglycemia Protocol Heparin Sodium (Porcine) (Heparin) 5,000 units SC Q12 [facility] Last Admin: 11/25/18 10:09 Dose: 5,000 units Dextrose (Dextrose 5% In Water 1000 Ml) 1,000 mls @ 0 mls/hr IV .Q0M PRN; Protocol PRN Reason: Hypoglycemia Protocol Insulin Human Regular (Novolin R) 0 unit SC ACHS [facility]; Protocol Last Admin: 11/25/18 12:44 Dose: 2 unit Losartan Potassium (Cozaar) 25 mg PO DAILY [facility] Last Admin: 11/25/18 10:09 Dose: 25 mg Metoprolol Succinate (Toprol Xl) 12.5 mg PO DAILY [facility] Last Admin: 11/25/18 10:09 Dose: 12.5 mg Pantoprazole Sodium (Protonix Ec Tab) 40 mg PO DAILY [facility] Last Admin: 11/25/18 10:06 Dose: 40 mg Potassium Chloride (K-Dur 20 Meq Er Tab) 20 meq PO DAILY [facility] Rosuvastatin Calcium (Crestor) 10 mg PO HS [facility] Last Admin: 11/24/18 21:35 Dose: 10 mg Senna/Docusate Sodium (Senokot S 50 Mg-8.6 Mg) 1 tab PO DAILY [facility] Last Admin: 11/25/18 10:07 Dose: 1 tab - Labs Labs: 11/25/18 07:02 11/25/18 07:02 PT 14.0 SECONDS (9.7-12.2) H 11/22/18 12:56 INR 1.3 11/22/18 12:56 APTT 38 SECONDS (21-34) H 11/22/18 12:56 Attending/Attestation - Attestation I have personally seen and examined this patient.: Yes I have fully participated in the care of the patient.: Yes I have reviewed all pertinent clinical information, including history, physical exam and plan: Yes Notes (Text): This is late computer entry for 11/23/18. Patient seen, examined and case discussed with day-time resident. Patient seen in the afternoon. Patient refused his CPAP overnight. Patient's abdomen is soft, distended (obese habitus), no rebound, no guarding, no ascites but unclear if unresolved constipation given prior CT scan in 09/2018 will check obstructive series. Patient went for echocardiogram today; resident has spoken with Dr. Yan, scheduled for NPO for midnight for cardiac cath on 11/24/18. Will order for venous dopplers of lower extremities to rule out DVT but have low suspicion. Edema improving. Assessment/Plan 1. Chest pain secondary to acute on chronic CHF exacerbation Assessment/Plan * obs/tele * Cardiology (Dr. Yan) on consult help appreciated * Pt has significant cardiac risk factors including history of CABG, CHF, GASTON, DM, CAD, DM * Troponin x1 is negative, will trend q6h x2 with EKGs * Pt received ASA 325 mg PO in the ED * elevated probnp * Aspirin 81mg po daily * Lasix 20mg IV Q12H * Toprol 12.5mg PO daily * Cozaar 25mg PO daily * Crestor 10mg PoqHS * Will order echo * Echo (08/25): normal V systolic function, dilated LA, trace to mild AR, and trace to mild TR * Myocardial Stress (11/03/18); small fixed inferior defect. No stress induced ischemia. Normal EF. * Chest xray (11/22/18): no active disease. no significant interval change compared ot the prior examination 2. HFpEF exacerbation, acute on chronic Assessment/Plan * obs/tele * Cardiology (Dr. Yan) on consult help appreciated * Pt has significant cardiac risk factors including history of CABG, CHF, GASTON, DM, CAD, DM * Troponin x1 is negative, will trend q6h x2 with EKGs * Pt received ASA 325 mg PO in the ED * elevated probnp * Aspirin 81mg po daily * Lasix 20mg IV Q12H * Toprol 12.5mg PO daily * Cozaar 25mg PO daily * Crestor 10mg PoqHS * Will order echo * Echo (08/25): normal V systolic function, dilated LA, trace to mild AR, and trace to mild TR * Myocardial Stress (11/03/18); small fixed inferior defect. No stress induced ischemia. Normal EF. * Chest xray (11/22/18): no active disease. no significant interval change compared ot the prior examination * Fluid restriction * Daily Weight 3. Hx of asthma,, history ofOSA Assessment/Plan * Pulm Dr. Akers, consulted. Recommendations appreciated. * patient recommended to using autopap; does not use it; discussed with pulm noted noncompliance * Duoneb q6h prn * Breo Ellipta 1p uff inhaled RQDaily * CPAP at 14 cm H2o at night 4. Abdominal distension with pain History of Gastritis Small hiatus hernia Assessment/Plan * Patient had visited his GI this morning day of admission; attempted to call awaiting call back * prior hospitalization: * Abd CT in 09/2018 shows few scattered colonic diverticuli without evidence of diverticulitis. Patchy B/L lower infiltrates. Umbilical and inguinal hernia with fat. Diffuse constipation. * Abd CT angiogram 09/2018 shows diffuse constipation no evidence of ischemia. * Sennakot PO daily * F/u abdominal obstructive series * Prior EGD (11/2016) available in the EMR 5. Hx of CAD with CABG and stent Assessment/Plan * Cardiology (Dr. Yan) on consult help appreciated * Aspirin 81mg po daily * Lasix 20mg IV Q12H * Toprol 12.5mg PO daily * Cozaar 25mg PO daily * Crestor 10mg PoqHS * Will order echo * Myocardial perfusion scan 11/03/2018 shows normal myocardial perfusion test. Small fixed inferior defect. No ischemia. * Echo 08/17/2016 shows normal LV, dilated LA. trace to mild AR, TR. 6. NIDDM2 Assessment/Plan * HgbA1c is 6.8 on 09/2018 * Accuchecks ACHS * RISS low * Hypoglycemia protocol * Aspirin 81mg po daily * Crestor 10mg PoqHS 7. Prior history of multifocal pneumonia Assessment/Plan * Recent hospitalization * CT chest angio 09/2018 showed pulmonary infiltrates, no evidence of PE. * He completed a course of doxycycline upon discharge * Afebrile, no white count 8. Hx of PAD/PVD Assessment/Plan * Continue home cilostazol 50mg PO BID * Continue ASA 81mg Po daily 9. Hx of gastritis Assessment/Plan * Continue home protonix 40 mg PO daily 9. Hx of cervical neuropathy/diabetic neuropathy Assessment/Plan * Continue home duloxetine 60 mg PO BID, gabapentin 100 mg PO BID 10. Leg edema Assessment/Plan * attributed to chf exacerbation * venous doppler (leg) ordered * improving 11. PPx: * GI ppx with protonix 40 mg PO daily * VTE ppx with Heparin 5000 sc q12 * HHD, CCD with 1.5L fluid restriction * PT/OT eval * monitor telemetry
[2018-11-23 07:23] LABS: BASO % 0.4 % (0.0-2.0); EOS # 0.1 K/uL (0.0-0.7); EOS % 0.8 % (0.0-4.0); HEMOGLOBIN 10.8 g/dL (12.0-18.0); LYMPH # 1.4 K/uL (1.0-4.3); LYMPH % 21.9 % (20.0-40.0); MEAN CELL VOLUME 77.8 fL (80.0-94.0); MEAN CORPUSCULAR HEMOGLOBIN 24.8 pg (27.0-31.0); MEAN CORPUSCULAR HGB CONC 31.8 g/dL (33.0-37.0); MEAN PLATELET VOLUME 8.4 fL (7.2-11.7); MONO # 0.8 K/uL (0.0-0.8); MONO % 11.5 % (0.0-10.0); NEUT # 4.3 K/uL (1.8-7.0); NEUT % 65.4 % (50.0-75.0); NRBC % 0.2 % (0.0-2.0); RBC 4.36 Mil/uL (4.40-5.90); RED CELL DISTRIBUTION WIDTH 17.6 % (11.5-14.5); WHITE BLOOD COUNT 6.6 K/uL (4.8-10.8)
[2018-11-23 07:45] LABS: ALB/GLOB RATIO 1.2 (1.0-2.1); ALBUMIN 3.5 g/dL (3.5-5.0); ALT/SGPT 27 U/L (21-72); AST/SGOT 31 U/L (17-59); BLOOD UREA NITROGEN 20 mg/dL (9-20); CALCIUM 8.8 mg/dl (8.6-10.4); GFR NON-AFRICAN AMERICAN > 60; HDL CHOLESTEROL 43 mg/dL (30-70)
[2018-11-23] MEDS: Fluticasone-Vilanterol 100/25mcg Diskus INH SCH (07:49)
[2018-11-23 07:52] LABS: LDL CHOLESTEROL 72 mg/dL (0-129)
[2018-11-23] MEDS: (Novolin R) Insulin Human Regular 100 units/ml vial SC SCH ×4 (08:12→21:50)
[2018-11-23] MEDS: Pantoprazole 40 mg EC Tab PO SCH (10:30)
[2018-11-23] MEDS: Docusate-Senna 50 mg-8.6 mg Tab PO SCH (10:30)
--- NOTE | 2018-11-23 10:55 | RAD ---
Date of service: 11/23/2018 PROCEDURE: Radiographs of the chest and abdomen (obstructive series) HISTORY: r/o obstruction COMPARISON: No prior. TECHNIQUE: AP radiograph of the chest, with upright and supine radiographs of the abdomen. FINDINGS: CHEST: Lungs: Clear. Cardiovascular: Cardiomegaly. No evidence of acute, significant cardiovascular disease. No radiographic findings to suggest acute or significant cardiovascular disease. Incidental Finding(s): Postoperative changes related to sternotomy. No aortic atherosclerotic calcification present Pleura: No pleural fluid. No pneumothorax. Other findings: None. ABDOMEN AND PELVIS: Bowel: Unremarkable bowel gas pattern. No evidence of mechanical obstruction. Free air: None. Bones: Unremarkable. Other findings: None. IMPRESSION: Unremarkable radiographs of chest and abdomen. No evidence of mechanical bowel obstruction.
[2018-11-23] MEDS: Cilostazol 50 mg Tab UD PO SCH ×3 (10:56→17:50)
[2018-11-23] MEDS: Metoprolol Succinate 12.5 mg XL Tab PO SCH (10:56)
--- NOTE | 2018-11-23 18:17 | CARD ---
APPROVED REPORT Date of service: 11/23/2018 EXAM: Two-dimensional and M-mode echocardiogram with Doppler and color Doppler. INDICATION Dyspnea Chest Pain Congestive Heart Failure RISK FACTORS Hypertension 2D DIMENSIONS IVSd1.0 (0.7-1.1cm)LVDd4.7 (3.9-5.9cm) PWd1.0 (0.7-1.1cm)LA [id number] (18-58mL) LVDs3.1 (2.5-4.0cm)FS (%) 32.8 % LVEF (%)61.3 (>50%)LVEF (Sue's)62.33 % M-Mode DIMENSIONS Left Atrium (MM)4.06 (2.5-4.0cm)IVSd0.85 (0.7-1.1cm) Aortic Root3.33 (2.2-3.7cm)LVDd5.51 (4.0-5.6cm) Aortic Cusp Exc.2.07 (1.5-2.0cm)PWd0.83 (0.7-1.1cm) FS (%) 44 %LVDs3.07 (2.0-3.8cm) LVEF (%)75 (>50%) Aortic Valve AI P 1/2 [id number] Mitral Valve MV E Udrghwzr74.1cm/sMV A Pxotkhar29.4cm/sE/A ratio1.5 TDI Lateral E' Peak V6.03cm/sMedial E' Peak V4.48cm/sE/Lateral E'13.8 E/Medial E'18.5 LEFT VENTRICLE The left ventricle is normal size. There is normal left ventricular wall thickness. The left ventricular function is normal. The left ventricular ejection fraction is within the normal range. about 65% No regional wall motion abnormalities noted. The left ventricular diastolic function is indetermiante. No left ventricle thrombus noted on this study. There is no ventricular septal defect visualized. There is no left ventricular aneurysm. There is no mass noted in the left ventricle. RIGHT VENTRICLE The right ventricle is normal size. There is normal right ventricular wall thickness. The right ventricular systolic function is normal. ATRIA The left atrium size is normal. The right atrium size is normal. The interatrial septum is intact with no evidence for an atrial septal defect. AORTIC VALVE The aortic valve is normal in structure and function. moderate aortic regurgitation is present. There is no aortic valvular stenosis. There is no aortic valvular vegetation. MITRAL VALVE The mitral valve is normal in structure and function. There is no evidence of mitral valve prolapse. There is no mitral valve stenosis. There is trace mitral valve regurgitation noted. TRICUSPID VALVE The tricuspid valve is normal in structure and function. There is no tricuspid valve regurgitation noted. There is no tricuspid valve prolapse or vegetation. There is no tricuspid valve stenosis. PULMONIC VALVE The pulmonary valve is normal in structure and function. There is no pulmonic valvular regurgitation. There is no pulmonic valvular stenosis. GREAT VESSELS The aortic root is normal in size. The ascending aorta is normal in size. The pulmonary artery is normal. The IVC is normal in size and collapses >50% with inspiration. PERICARDIAL EFFUSION The pericardium appears normal. There is no pleural effusion. <Conclusion> Some apical views off axis. Normal left ventricular systolic function. Moderate aortic regurgitation.
--- NOTE | 2018-11-23 18:36 | CP.PCM.PN ---
Subjective - Date & Time of Evaluation Date of Evaluation: 11/23/18 Time of Evaluation: 18:36 - Subjective Subjective: Patient seen and examined No events overnight Objective - Vital Signs/Intake and Output Vital Signs (last 24 hours): Temp Pulse Resp BP Pulse Ox 98.9 F 60 20 111/59 L 97 11/23/18 16:27 11/23/18 16:27 11/23/18 16:27 11/23/18 16:27 11/23/18 16:27 Intake and Output: 11/23/18 11/23/18 06:59 18:59 Intake Total 480 Output Total 1000 Balance -520 - Medications Medications: Current Medications Albuterol/Ipratropium (Duoneb 3 Mg/0.5 Mg (3 Ml) Ud) 3 ml INH RQ6 PRN PRN Reason: Shortness of Breath Aspirin (Ecotrin) 81 mg PO DAILY [facility] Last Admin: 11/23/18 10:30 Dose: 81 mg Cilostazol (Pletal) 50 mg PO BID [facility] Last Admin: 11/23/18 17:50 Dose: 50 mg Dextrose (Dextrose 50% Inj) 0 ml IV STAT PRN; Protocol PRN Reason: Hypoglycemia Protocol Dextrose (Glutose 15) 0 gm PO ONCE PRN; Protocol PRN Reason: Hypoglycemia Protocol Duloxetine HCl (Cymbalta) 60 mg PO DAILY [facility] Last Admin: 11/23/18 10:56 Dose: 60 mg Fluticasone/Vilanterol (Breo Ellipta 100-25 Mcg Inh) 1 puff INH RQD [facility] Last Admin: 11/23/18 07:49 Dose: 1 puff Furosemide (Lasix) 20 mg IVP Q12 [facility] Last Admin: 11/23/18 10:31 Dose: 20 mg Gabapentin (Neurontin) 100 mg PO BID [facility] Last Admin: 11/23/18 17:40 Dose: 100 mg Glucagon (Glucagen Diagnostic Kit) 0 mg IM STAT PRN; Protocol PRN Reason: Hypoglycemia Protocol Heparin Sodium (Porcine) (Heparin) 5,000 units SC Q12 [facility] Last Admin: 11/23/18 10:31 Dose: 5,000 units Dextrose (Dextrose 5% In Water 1000 Ml) 1,000 mls @ 0 mls/hr IV .Q0M PRN; Protocol PRN Reason: Hypoglycemia Protocol Insulin Human Regular (Novolin R) 0 unit SC ACHS [facility]; Protocol Last Admin: 11/23/18 16:50 Dose: Not Given Losartan Potassium (Cozaar) 25 mg PO DAILY [facility] Last Admin: 11/23/18 10:30 Dose: 25 mg Metoprolol Succinate (Toprol Xl) 12.5 mg PO DAILY [facility] Last Admin: 11/23/18 10:56 Dose: 12.5 mg Pantoprazole Sodium (Protonix Ec Tab) 40 mg PO DAILY [facility] Last Admin: 11/23/18 10:30 Dose: 40 mg Rosuvastatin Calcium (Crestor) 10 mg PO HS [facility] Last Admin: 11/22/18 21:59 Dose: 10 mg Senna/Docusate Sodium (Senokot S 50 Mg-8.6 Mg) 1 tab PO DAILY [facility] Last Admin: 11/23/18 10:30 Dose: 1 tab - Labs Labs: 11/23/18 07:12 11/23/18 07:12 PT 14.0 SECONDS (9.7-12.2) H 11/22/18 12:56 INR 1.3 11/22/18 12:56 APTT 38 SECONDS (21-34) H 11/22/18 12:56 - Head Exam Head Exam: NORMAL INSPECTION - Eye Exam Eye Exam: Normal appearance - ENT Exam ENT Exam: Mucous Membranes Moist - Respiratory Exam Respiratory Exam: Clear to Ausculation Bilateral - Cardiovascular Exam Cardiovascular Exam: REGULAR RHYTHM, +S1, +S2 - GI/Abdominal Exam GI & Abdominal Exam: Soft, Normal Bowel Sounds - Extremities Exam Extremities Exam: Normal Inspection - Neurological Exam Neurological Exam: Alert, Oriented x3 Assessment and Plan (1) Obstructive sleep apnea (adult) (pediatric) Status: Acute (2) Asthma Status: Acute (3) CHF (congestive heart failure) Status: Acute - Assessment and Plan (Free Text) Plan: Brio Ellipta Bronchodilators Lasix CPAP of 14 cm H2O DVT/GI prophylaxis
--- NOTE | 2018-11-23 20:12 | CARD ---
APPROVED REPORT Date of service: 11/22/2018 EKG Measurement Heart [id number] <Conclusion> Normal sinus rhythm ST & T wave abnormality, consider anterolateral ischemia Abnormal ECG
--- NOTE | 2018-11-24 06:13 | CP.PCM.CON ---
History of Present Illness - History of Present Illness History of Present Illness: CC: Chest pain and abdominal pain 54 yo PMH CAD s/p CABG, HTN, hyperlipidemia, and DM presents with progressively worsening chest and abdominal pain. Capable of walking without difficulty despite current symptoms. Denies orthopnea. Denies SOB at rest. Also has numbness/tingling in hands, and transient bilateral hand/feet swelling. PMD: Dr. Madeline Phelps PMH: CAD s/p CABG, HTN, hyperlipidemia, DM PSH: CABG in 2003, 11 cardiac stents All: NKDA FHx: mother passed from [place] at 70 yo. SocHx: lives with family, unemployed. Denies smoking hx. Denies alcohol use or illicit drug use. Present on Admission - Present on Admission Any Indicators Present on Admission: No Review of Systems - Constitutional Constitutional: No Fever, Chills - Cardiovascular Cardiovascular: Chest Pain with Activity, Pedal Edema. absent: Orthopnea, Palpitations, Paroxysmal Nocturnal Dyspnea - Respiratory Respiratory: No Cough, Dyspnea, Dyspnea on Exertion - Gastrointestinal Gastrointestinal: absent: Abdominal Pain, Change in Bowel Habits, Constipation, Diarrhea, Nausea, Vomiting - Genitourinary Genitourinary: absent: Dysuria - Musculoskeletal Musculoskeletal: Myalgias Additional comments: chronic leg pain bilaterally with walking chronic back pain with walking - Neurological Neurological: absent: Dizziness, Headaches Physical Exam - Constitutional Appears: No Acute Distress - Head Exam Head Exam: ATRAUMATIC, NORMAL INSPECTION - Eye Exam Eye Exam: EOMI Pupil Exam: PERRL - ENT Exam ENT Exam: Mucous Membranes Moist - Respiratory Exam Respiratory Exam: Rhonchi, Wheezes. Right lung basal crepitations - Cardiovascular Exam Cardiovascular Exam: Gallop, RRR, +S1, +S2 - GI/Abdominal Exam GI & Abdominal Exam: Normal Bowel Sounds, Soft. absent: Distended, Tenderness - Extremities Exam Extremities exam: Positive for: normal capillary refill, pedal edema, pedal pulses present. Negative for: calf tenderness - Neurological Exam Neurological exam: Alert, CN II-XII Intact, Oriented x3 - Psychiatric Exam Psychiatric exam: Normal Affect, Normal Mood - Skin Skin Exam: Dry, Intact, Normal Color Assessment/Plan - Assessment and Plan (Free Text) Assessment: (1) Chest pain/Chronic Angina Current Visit: Yes Status: Acute Comment: r/o ACS EKG: inverted T waves. Patient currently denies CP. Trop: Abnormal Troponins negative Last stress test was normal. Will continue to monitor (2) Diabetes mellitus Current Visit: Yes Status: Acute Comment: f/u HgA1C accuechecks ACHS RISS Continued home regimin of metformin 500 mg BID (3) Hyperlipidemia Current Visit: Yes Status: Acute Comment: f/u FLP crestor 5 mg qHs (4) HTN (hypertension) Current Visit: Yes Status: Acute Comment: toprol 25 mg qD (5)CHF/Chronic diastolic ProBNP <300 Dyspnea unlikely cardiac etiology (6) Prophylactic measure Current Visit: Yes Status: Acute Comment: protonix 40 mg qD SCDs heparin 5000 U q8h Past Patient History - Infectious Disease Hx of Infectious Diseases: None - Past Medical History & Family History Past Medical History?: Yes - Past Social History Smoking Status: Never Smoked - CARDIAC Hx Hypercholesterolemia: Yes Hx Hypertension: Yes - PULMONARY Hx Pneumonia: Yes - NEUROLOGICAL Hx Neurological Disorder: No - HEENT Hx HEENT Problems: No - RENAL Hx Chronic Kidney Disease: No - ENDOCRINE/METABOLIC Hx Diabetes Mellitus Type 2: Yes - HEMATOLOGICAL/ONCOLOGICAL Hx Anemia: Yes - INTEGUMENTARY Hx Dermatological Problems: No - MUSCULOSKELETAL/RHEUMATOLOGICAL Hx Musculoskeletal Disorders: No Hx Falls: No - GASTROINTESTINAL Hx Gastritis: Yes - GENITOURINARY/GYNECOLOGICAL Hx Genitourinary Disorders: No - PSYCHIATRIC Hx Depression: Yes Hx Substance Use: No - SURGICAL HISTORY Hx Coronary Artery Bypass Graft: Yes (2003) Hx Coronary Stent: Yes (2010) - ANESTHESIA Hx Anesthesia: Yes Hx Anesthesia Reactions: No Hx Malignant Hyperthermia: No Meds Allergies/Adverse Reactions: Allergies Allergy/AdvReac Type Severity Reaction Status Date / Time No Known Allergies Allergy Verified 11/22/18 12:24 - Medications Medications: Current Medications Albuterol/Ipratropium (Duoneb 3 Mg/0.5 Mg (3 Ml) Ud) 3 ml INH RQ6 PRN PRN Reason: Shortness of Breath Aspirin (Ecotrin) 81 mg PO DAILY [facility] Last Admin: 11/23/18 10:30 Dose: 81 mg Cilostazol (Pletal) 50 mg PO BID [facility] Last Admin: 11/23/18 17:50 Dose: 50 mg Dextrose (Dextrose 50% Inj) 0 ml IV STAT PRN; Protocol PRN Reason: Hypoglycemia Protocol Dextrose (Glutose 15) 0 gm PO ONCE PRN; Protocol PRN Reason: Hypoglycemia Protocol Duloxetine HCl (Cymbalta) 60 mg PO DAILY [facility] Last Admin: 11/23/18 10:56 Dose: 60 mg Fluticasone/Vilanterol (Breo Ellipta 100-25 Mcg Inh) 1 puff INH RQD [facility] Last Admin: 11/23/18 07:49 Dose: 1 puff Furosemide (Lasix) 20 mg IVP Q12 [facility] Last Admin: 11/23/18 21:34 Dose: 20 mg Gabapentin (Neurontin) 100 mg PO BID [facility] Last Admin: 11/23/18 17:40 Dose: 100 mg Glucagon (Glucagen Diagnostic Kit) 0 mg IM STAT PRN; Protocol PRN Reason: Hypoglycemia Protocol Heparin Sodium (Porcine) (Heparin) 5,000 units SC Q12 [facility] Last Admin: 11/23/18 21:35 Dose: 5,000 units Dextrose (Dextrose 5% In Water 1000 Ml) 1,000 mls @ 0 mls/hr IV .Q0M PRN; Protocol PRN Reason: Hypoglycemia Protocol Insulin Human Regular (Novolin R) 0 unit SC ACHS [facility]; Protocol Last Admin: 11/23/18 21:50 Dose: Not Given Losartan Potassium (Cozaar) 25 mg PO DAILY [facility] Last Admin: 11/23/18 10:30 Dose: 25 mg Metoprolol Succinate (Toprol Xl) 12.5 mg PO DAILY [facility] Last Admin: 11/23/18 10:56 Dose: 12.5 mg Pantoprazole Sodium (Protonix Ec Tab) 40 mg PO DAILY [facility] Last Admin: 11/23/18 10:30 Dose: 40 mg Rosuvastatin Calcium (Crestor) 10 mg PO HS [facility] Last Admin: 11/23/18 21:35 Dose: 10 mg Senna/Docusate Sodium (Senokot S 50 Mg-8.6 Mg) 1 tab PO DAILY [facility] Last Admin: 11/23/18 10:30 Dose: 1 tab Results - Vital Signs Recent Vital Signs: Last Vital Signs Temp 97.7 F 11/23/18 23:30 Pulse 70 11/24/18 04:20 Resp 20 11/23/18 23:30 BP 109/63 11/23/18 23:30 Pulse Ox 97 11/23/18 23:30 - Labs Result Diagrams: 11/23/18 07:12 11/23/18 07:12 Labs: Laboratory Results - last 24 hr 11/23/18 11/23/18 07:12 07:12 WBC 6.6 RBC 4.36 L Hgb 10.8 L Hct 33.9 L MCV 77.8 L MCH 24.8 L MCHC 31.8 L RDW 17.6 H Plt Count 200 MPV 8.4 Neut % (Auto) 65.4 Lymph % (Auto) 21.9 Bradford % (Auto) 11.5 H Eos % (Auto) 0.8 Baso % (Auto) 0.4 Neut # (Auto) 4.3 Lymph # (Auto) 1.4 Bradford # (Auto) 0.8 Eos # (Auto) 0.1 Baso # (Auto) 0.0 Sodium 129 L Potassium 3.8 Chloride 95 L Carbon Dioxide 29 Anion Gap 9 L BUN 20 Creatinine 0.8 Est GFR ( Amer) > 60 Est GFR (Non-Af Amer) > 60 Random Glucose 87 D Calcium 8.8 Phosphorus 3.5 Magnesium 1.9 Total Bilirubin 0.7 AST 31 ALT 27 Alkaline Phosphatase 90 Total Protein 6.4 Albumin 3.5 Globulin 2.9 Albumin/Globulin Ratio 1.2 Triglycerides 92 Cholesterol 112 LDL Cholesterol Direct 72 HDL Cholesterol 43
--- NOTE | 2018-11-24 06:15 | CP.PCM.PN ---
Subjective - Date & Time of Evaluation Date of Evaluation: 11/23/18 Time of Evaluation: 20:15 - Subjective Subjective: Patient seen and evaluated Has some dyspnea and chest pain For Cath tomorrow Trop and ECHO abnormal (Moderate AI) Review of Systems - Constitutional Constitutional: No Fever, Chills - Cardiovascular Cardiovascular: Chest Pain with Activity, Pedal Edema. absent: Orthopnea, Palpitations, Paroxysmal Nocturnal Dyspnea - Respiratory Respiratory: No Cough, Dyspnea, Dyspnea on Exertion - Gastrointestinal Gastrointestinal: absent: Abdominal Pain, Change in Bowel Habits, Constipation, Diarrhea, Nausea, Vomiting - Genitourinary Genitourinary: absent: Dysuria - Musculoskeletal Musculoskeletal: Myalgias Additional comments: chronic leg pain bilaterally with walking chronic back pain with walking - Neurological Neurological: absent: Dizziness, Headaches Physical Exam - Constitutional Appears: No Acute Distress - Head Exam Head Exam: ATRAUMATIC, NORMAL INSPECTION - Eye Exam Eye Exam: EOMI Pupil Exam: PERRL - ENT Exam ENT Exam: Mucous Membranes Moist - Respiratory Exam Respiratory Exam: Rhonchi, Wheezes. Right lung basal crepitations - Cardiovascular Exam Cardiovascular Exam: Gallop, RRR, +S1, +S2 - GI/Abdominal Exam GI & Abdominal Exam: Normal Bowel Sounds, Soft. absent: Distended, Tenderness - Extremities Exam Extremities exam: Positive for: normal capillary refill, pedal edema, pedal pulses present. Negative for: calf tenderness - Neurological Exam Neurological exam: Alert, CN II-XII Intact, Oriented x3 - Psychiatric Exam Psychiatric exam: Normal Affect, Normal Mood - Skin Skin Exam: Dry, Intact, Normal Color Assessment/Plan - Assessment and Plan (Free Text) Assessment: (1) Chest pain/Chronic Angina Current Visit: Yes Status: Acute Comment: r/o ACS EKG: inverted T waves. Patient currently denies CP. Trop: Abnormal Troponins negative Last stress test was normal. Will continue to monitor (2) Diabetes mellitus Current Visit: Yes Status: Acute Comment: f/u HgA1C accuechecks ACHS RISS Continued home regimin of metformin 500 mg BID (3) Hyperlipidemia Current Visit: Yes Status: Acute Comment: f/u FLP crestor 5 mg qHs (4) HTN (hypertension) Current Visit: Yes Status: Acute Comment: toprol 25 mg qD (5)CHF/Chronic diastolic ProBNP <300 Dyspnea unlikely cardiac etiology (6) Prophylactic measure Current Visit: Yes Status: Acute Comment: protonix 40 mg qD SCDs heparin 5000 U q8h Patient for cath in am Objective - Vital Signs/Intake and Output Vital Signs (last 24 hours): Temp Pulse Resp BP Pulse Ox 97.7 F 70 20 109/63 97 11/23/18 23:30 11/24/18 04:20 11/23/18 23:30 11/23/18 23:30 11/23/18 23:30 Intake and Output: 11/23/18 11/24/18 18:59 06:59 Intake Total 480 400 Output Total 1000 Balance -520 400 - Medications Medications: Current Medications Albuterol/Ipratropium (Duoneb 3 Mg/0.5 Mg (3 Ml) Ud) 3 ml INH RQ6 PRN PRN Reason: Shortness of Breath Aspirin (Ecotrin) 81 mg PO DAILY [facility] Last Admin: 11/23/18 10:30 Dose: 81 mg Cilostazol (Pletal) 50 mg PO BID [facility] Last Admin: 11/23/18 17:50 Dose: 50 mg Dextrose (Dextrose 50% Inj) 0 ml IV STAT PRN; Protocol PRN Reason: Hypoglycemia Protocol Dextrose (Glutose 15) 0 gm PO ONCE PRN; Protocol PRN Reason: Hypoglycemia Protocol Duloxetine HCl (Cymbalta) 60 mg PO DAILY [facility] Last Admin: 11/23/18 10:56 Dose: 60 mg Fluticasone/Vilanterol (Breo Ellipta 100-25 Mcg Inh) 1 puff INH RQD [facility] Last Admin: 11/23/18 07:49 Dose: 1 puff Furosemide (Lasix) 20 mg IVP Q12 [facility] Last Admin: 11/23/18 21:34 Dose: 20 mg Gabapentin (Neurontin) 100 mg PO BID [facility] Last Admin: 11/23/18 17:40 Dose: 100 mg Glucagon (Glucagen Diagnostic Kit) 0 mg IM STAT PRN; Protocol PRN Reason: Hypoglycemia Protocol Heparin Sodium (Porcine) (Heparin) 5,000 units SC Q12 [facility] Last Admin: 11/23/18 21:35 Dose: 5,000 units Dextrose (Dextrose 5% In Water 1000 Ml) 1,000 mls @ 0 mls/hr IV .Q0M PRN; Protocol PRN Reason: Hypoglycemia Protocol Insulin Human Regular (Novolin R) 0 unit SC ACHS [facility]; Protocol Last Admin: 11/23/18 21:50 Dose: Not Given Losartan Potassium (Cozaar) 25 mg PO DAILY [facility] Last Admin: 11/23/18 10:30 Dose: 25 mg Metoprolol Succinate (Toprol Xl) 12.5 mg PO DAILY [facility] Last Admin: 11/23/18 10:56 Dose: 12.5 mg Pantoprazole Sodium (Protonix Ec Tab) 40 mg PO DAILY [facility] Last Admin: 11/23/18 10:30 Dose: 40 mg Rosuvastatin Calcium (Crestor) 10 mg PO HS [facility] Last Admin: 11/23/18 21:35 Dose: 10 mg Senna/Docusate Sodium (Senokot S 50 Mg-8.6 Mg) 1 tab PO DAILY [facility] Last Admin: 11/23/18 10:30 Dose: 1 tab - Labs Labs: 11/23/18 07:12 11/23/18 07:12 PT 14.0 SECONDS (9.7-12.2) H 11/22/18 12:56 INR 1.3 11/22/18 12:56 APTT 38 SECONDS (21-34) H 11/22/18 12:56
[2018-11-24 06:30] LABS: BASO # 0.1 K/uL (0.0-0.2); BASO % 0.8 % (0.0-2.0); EOS # 0.1 K/uL (0.0-0.7); EOS % 1.1 % (0.0-4.0); HEMOGLOBIN 11.8 g/dL (12.0-18.0); LYMPH # 1.9 K/uL (1.0-4.3); LYMPH % 24.5 % (20.0-40.0); MEAN CELL VOLUME 78.2 fL (80.0-94.0); MEAN CORPUSCULAR HEMOGLOBIN 24.4 pg (27.0-31.0); MEAN CORPUSCULAR HGB CONC 31.2 g/dL (33.0-37.0); MEAN PLATELET VOLUME 8.3 fL (7.2-11.7); MONO # 0.9 K/uL (0.0-0.8); MONO % 11.7 % (0.0-10.0); NEUT # 4.8 K/uL (1.8-7.0); NEUT % 61.9 % (50.0-75.0); NRBC % 0.3 % (0.0-2.0); RBC 4.82 Mil/uL (4.40-5.90); RED CELL DISTRIBUTION WIDTH 17.8 % (11.5-14.5); WHITE BLOOD COUNT 7.8 K/uL (4.8-10.8)
[2018-11-24 06:43] LABS: ALB/GLOB RATIO 1.2 (1.0-2.1); ALBUMIN 3.8 g/dL (3.5-5.0); ALT/SGPT 18 U/L (21-72); AST/SGOT 33 U/L (17-59); BLOOD UREA NITROGEN 21 mg/dL (9-20); CALCIUM 8.9 mg/dl (8.6-10.4); GFR NON-AFRICAN AMERICAN > 60
--- NOTE | 2018-11-24 06:50 | CP.PCM.PN ---
<Arvind Zuluaga - Last Filed: 11/24/18 16:22> Subjective - Date & Time of Evaluation Date of Evaluation: 11/24/18 Time of Evaluation: 09:25 - Subjective Subjective: PGY1 Medicine progress note for Dr. Stevenson Pt was seen and examined at bedside. Pt is resting comfortably. He did not use the CPAP at night because he doesn't like it. Improtantce of CPAP reiterated to pt. His abdomen still feels distended and he still has the left sided pressure/stretching sensation, but it is improved. Denies fever, chills, headache, dizziness, lightheadedness, vision changes, n/v. He is s/p cardiac cath this morning. Objective - Vital Signs/Intake and Output Vital Signs (last 24 hours): Temp Pulse Resp BP Pulse Ox 97.5 F L 85 20 118/60 96 11/24/18 06:23 11/24/18 06:23 11/24/18 06:23 11/24/18 06:23 11/24/18 06:23 Intake and Output: 11/23/18 11/24/18 18:59 06:59 Intake Total 480 400 Output Total 1000 Balance -520 400 - Medications Medications: Current Medications Albuterol/Ipratropium (Duoneb 3 Mg/0.5 Mg (3 Ml) Ud) 3 ml INH RQ6 PRN PRN Reason: Shortness of Breath Aspirin (Ecotrin) 81 mg PO DAILY [facility] Last Admin: 11/23/18 10:30 Dose: 81 mg Cilostazol (Pletal) 50 mg PO BID [facility] [place] Last Admin: 11/23/18 17:50 Dose: 50 mg Dextrose (Dextrose 50% Inj) 0 ml IV STAT PRN; Protocol PRN Reason: Hypoglycemia Protocol Dextrose (Glutose 15) 0 gm PO ONCE PRN; Protocol PRN Reason: Hypoglycemia Protocol Duloxetine HCl (Cymbalta) 60 mg PO DAILY [facility] [place] Last Admin: 11/23/18 10:56 Dose: 60 mg Fluticasone/Vilanterol (Breo Ellipta 100-25 Mcg Inh) 1 puff INH RQD [facility] [place] Last Admin: 11/23/18 07:49 Dose: 1 puff Furosemide (Lasix) 20 mg IVP Q12 [facility] [place] Last Admin: 11/23/18 21:34 Dose: 20 mg Gabapentin (Neurontin) 100 mg PO BID [facility] [place] Last Admin: 11/23/18 17:40 Dose: 100 mg Glucagon (Glucagen Diagnostic Kit) 0 mg IM STAT PRN; Protocol PRN Reason: Hypoglycemia Protocol Heparin Sodium (Porcine) (Heparin) 5,000 units SC Q12 [facility] Last Admin: 11/23/18 21:35 Dose: 5,000 units Dextrose (Dextrose 5% In Water 1000 Ml) 1,000 mls @ 0 mls/hr IV .Q0M PRN; Protocol PRN Reason: Hypoglycemia Protocol Insulin Human Regular (Novolin R) 0 unit SC ACHS [facility] [place]; Protocol Last Admin: 11/23/18 21:50 Dose: Not Given Losartan Potassium (Cozaar) 25 mg PO DAILY [facility] [place] Last Admin: 11/23/18 10:30 Dose: 25 mg Metoprolol Succinate (Toprol Xl) 12.5 mg PO DAILY [facility] [place] Last Admin: 11/23/18 10:56 Dose: 12.5 mg Pantoprazole Sodium (Protonix Ec Tab) 40 mg PO DAILY [facility] Last Admin: 11/23/18 10:30 Dose: 40 mg Rosuvastatin Calcium (Crestor) 10 mg PO HS [facility] [place] Last Admin: 11/23/18 21:35 Dose: 10 mg Senna/Docusate Sodium (Senokot S 50 Mg-8.6 Mg) 1 tab PO DAILY [facility] [place] Last Admin: 11/23/18 10:30 Dose: 1 tab - Labs Labs: 11/24/18 06:19 11/24/18 06:19 PT 14.0 SECONDS (9.7-12.2) H 11/22/18 12:56 INR 1.3 11/22/18 12:56 APTT 38 SECONDS (21-34) H 11/22/18 12:56 - Additional Findings Additional findings: - Constitutional Appears: Non-toxic, No Acute Distress - Head Exam Head Exam: ATRAUMATIC, NORMAL INSPECTION - Eye Exam Eye Exam: EOMI, Normal appearance - ENT Exam ENT Exam: Mucous Membranes Moist - Neck Exam Neck exam: Positive for: Normal Inspection - Respiratory Exam Respiratory Exam: Chest Wall Tenderness (left sternal reproducible pain), Rales (at the bases). absent: Accessory Muscle Use, Decreased Breath Sounds, Rhonchi, Wheezes, Respiratory Distress (no conversational dyspnea), Stridor Additional comments: short expiratory phase - Cardiovascular Exam Cardiovascular Exam: REGULAR RHYTHM, +S1, +S2, +S4 (+S3). absent: Tachycardia - GI/Abdominal Exam GI & Abdominal Exam: Distended (ascites), Hernia (umbilical hernia), Normal Bowel Sounds, Soft, Tenderness (left upper and left lower quadrant tenderness). absent: Firm, Guarding, Rebound, Rigid - Extremities Exam Extremities exam: Positive for: normal capillary refill, pedal edema (1+ to the midshin, trace from mid barone to knee; right worse than left), pedal pulses present (1+). Negative for: calf tenderness - Back Exam Back exam: NORMAL INSPECTION. absent: CVA tenderness (L), CVA tenderness (R), rash noted, midline tenderness - Neurological Exam Neurological exam: Alert, Oriented x3 - Psychiatric Exam Psychiatric exam: Normal Affect, Normal Mood - Skin Skin Exam: Dry, Normal Color, Warm Assessment and Plan - Assessment and Plan (Free Text) Assessment: Patient is a 58 year old Male with pmhx of CAD with CABG 2003, stent 2010, DM2, PVD, Hyperlipidemia, angina, HTN, gastritis that came to the ED for dyspnea on exertion, chest pain, and abdomen enlargement and pain. Plan: Hx of CAD with CABG and stent Myocardial perfusion scan 11/03/2018 shows normal myocardial perfusion test. S mall fixed inferior defect. No ischemia. Echo 08/17/2018 shows normal LV, dilated LA. trace to mild AR, TR. Continue ASA 81 mg PO daily, continue Crestor 10 mg PO daily, beta valarie Cardiology, Dr. Yan, consulted. Troponin is 0.0890-->0.1620-->0.1170 Pt is s/p cath this morning, well tolerated. LAD Prox 100% Mid 100% instent Mid 100%, Left to Right collaterals AGUERO to LAD patent SVG to OM 80% EF 55%, EDP 20, No Aortogram reveals moderate Aortic insuffiency Pt to go for JUSTIN on tuesday HFpEF exacerbation, acute on chronic CXR with pulmonary vascular congestion, no infiltrate, s/p CABG. BNP on admission is 3240 Lasix 20 mg IVP q12 Continue home Losartan 25 mg Metoprolol succinate 12.5 mg PO daily will start tomorrow Fluid restriction 1.5L Daily Is and Os Cardiology, Dr. Yan, consulted. Recommendations appreciated. Possible cath tomorrow morning Echo shows EF approximately 62%, moderate aortic regurgitation. Hx of asthma, GASTON Duoneb q6h prn Continue home breo CPAP at 14 cm H2o at night. Will reduce inspiratory pressure tonight. Stressed importance of need for CPAP for GASTON Pulmonology Dr. Akers, consulted. Recommendations appreciated. Abdominal distension with pain Abd CT in 09/2018 shows few scattered colonic diverticuli without evidence of diverticulitis. Patchy B/L lower infiltrates. Umbilical and inguinal hernia with fat. Diffuse constipation. Abd CT angiogram 09/2018 shows diffuse constipation no evidence of ischemia. Sennakot PO daily Abdominal obstructive series shows no evidence of bowel obstruction. Pt reports he saw GI, Dr. Alvarado, 11/22/18. case discussed with Dr. Alvarado, who reports pt went there to complain of abdominal pain but was sent to the ED after complaints of chest pain. Pt's abdominal pain is chronic as per Dr. Alvarado. Continue to monitor NIDDM2 HgbA1c is 6.8 on 09/2018 Accuchecks ACHS RISS low Hypoglycemia protocol Prior history of multifocal pnuemonia CT chest angio 09/2018 showed pulmonary infiltrates, no evidence of PE. He completed a course of doxycycline PO Hx of PAD/PVD Continue home cilostazol 50 mg PO daily Hx of gastritis Continue home protonix 40 mg PO daily Hx of cervical neuropathy/diabetic neuropathy Continue home duloxetine 60 mg PO BID, gabapentin 100 mg PO BID PPx: GI ppx with protonix 40 mg PO daily VTE ppx with Heparin 5000 sc q12 HHD, CCD (vegetarian) with 1.5L fluid restriction PT/OT eval Case discussed with Dr. Elva Zuluaga PGY1 <Erica Stevenson V - Last Filed: 11/25/18 14:43> Objective - Vital Signs/Intake and Output Vital Signs (last 24 hours): Temp Pulse Resp BP Pulse Ox 99.1 F 94 H 18 109/65 95 11/25/18 07:00 11/25/18 08:00 11/25/18 07:00 11/25/18 10:07 11/25/18 07:00 Intake and Output: 11/25/18 11/25/18 06:59 18:59 Output Total 300 Balance -300 - Medications Medications: Current Medications Albuterol/Ipratropium (Duoneb 3 Mg/0.5 Mg (3 Ml) Ud) 3 ml INH RQ6 PRN PRN Reason: Shortness of Breath Aspirin (Ecotrin) 81 mg PO DAILY [facility] [place] Last Admin: 11/25/18 10:07 Dose: 81 mg Cilostazol (Pletal) 50 mg PO BID [facility] [place] Last Admin: 11/25/18 10:08 Dose: 50 mg Dextrose (Dextrose 50% Inj) 0 ml IV STAT PRN; Protocol PRN Reason: Hypoglycemia Protocol Dextrose (Glutose 15) 0 gm PO ONCE PRN; Protocol PRN Reason: Hypoglycemia Protocol Duloxetine HCl (Cymbalta) 60 mg PO DAILY [facility] [place] Last Admin: 11/25/18 10:08 Dose: 60 mg Fluticasone/Vilanterol (Breo Ellipta 100-25 Mcg Inh) 1 puff INH RQD [facility] [place] Last Admin: 11/25/18 10:55 Dose: 1 puff Furosemide (Lasix) 20 mg IVP Q12 [facility] [place] Last Admin: 11/25/18 10:07 Dose: 20 mg Gabapentin (Neurontin) 100 mg PO BID [facility] [place] Last Admin: 11/25/18 10:07 Dose: 100 mg Glucagon (Glucagen Diagnostic Kit) 0 mg IM STAT PRN; Protocol PRN Reason: Hypoglycemia Protocol Heparin Sodium (Porcine) (Heparin) 5,000 units SC Q12 [facility] Last Admin: 11/25/18 10:09 Dose: 5,000 units Dextrose (Dextrose 5% In Water 1000 Ml) 1,000 mls @ 0 mls/hr IV .Q0M PRN; Protocol PRN Reason: Hypoglycemia Protocol Insulin Human Regular (Novolin R) 0 unit SC ACHS [facility] [place]; Protocol Last Admin: 11/25/18 12:44 Dose: 2 unit Losartan Potassium (Cozaar) 25 mg PO DAILY [facility] [place] Last Admin: 11/25/18 10:09 Dose: 25 mg Metoprolol Succinate (Toprol Xl) 12.5 mg PO DAILY [facility] [place] Last Admin: 11/25/18 10:09 Dose: 12.5 mg Pantoprazole Sodium (Protonix Ec Tab) 40 mg PO DAILY [facility] [place] Last Admin: 11/25/18 10:06 Dose: 40 mg Potassium Chloride (K-Dur 20 Meq Er Tab) 20 meq PO DAILY [facility] Rosuvastatin Calcium (Crestor) 10 mg PO HS [facility] [place] Last Admin: 11/24/18 21:35 Dose: 10 mg Senna/Docusate Sodium (Senokot S 50 Mg-8.6 Mg) 1 tab PO DAILY [facility] Last Admin: 11/25/18 10:07 Dose: 1 tab - Labs Labs: 11/25/18 07:02 11/25/18 07:02 PT 14.0 SECONDS (9.7-12.2) H 11/22/18 12:56 INR 1.3 11/22/18 12:56 APTT 38 SECONDS (21-34) H 11/22/18 12:56 Attending/Attestation - Attestation I have personally seen and examined this patient.: Yes I have fully participated in the care of the patient.: Yes I have reviewed all pertinent clinical information, including history, physical exam and plan: Yes Notes (Text): Tis is late computer entry for 11/24/18. Patient seen, examined and case discussed with day-time resident. Patient changed to inpatient/telemetry. Patient underwent cardiac cath this morning with Dr. yan. Discussed case with cardiology; Recommend for JUSTIN; to be scheduled at 9AM on 11/27/[address] Almeida on Tuesday. Patient urged to remain compliant on diet recommendations and CPAP which he continues to refuse. Edema improving over the lower extremities. Assessment/Plan 1. Chest pain secondary to acute on chronic CHF exacerbation, severe coronary artery disease, possible aortic regurgitation Assessment/Plan * changed to inpatient for workup in light of cath findings * Cardiology (Dr. Yan) on consult help appreciated * Pt has significant cardiac risk factors including history of CABG, CHF, GASTON, DM, CAD, DM * Troponin x1 is negative, will trend q6h x2 with EKGs * Pt received ASA 325 mg PO in the ED * elevated probnp * Aspirin 81mg po daily * Lasix 20mg IV Q12H * Toprol 12.5mg PO daily * Cozaar 25mg PO daily * Crestor 10mg PoqHS * Echo (08/25): normal V systolic function, dilated LA, trace to mild AR, and trace to mild TR * Myocardial Stress (11/03/18); small fixed inferior defect. No stress induced ischemia. Normal EF. * Chest xray (11/22/18): no active disease. no significant interval change compared ot the prior examination * Cath (11/24/18); coronary Artery disease, Recommend JUSTIN, recommend saphenous vein graft to circumflex intervention as an inpatient or after discharge * Echocardiogram (11/23/18): normal left ventricular systolic function. moderate aortic regurgitation 2. HFpEF exacerbation, acute on chronic Assessment/Plan * obs/tele * Cardiology (Dr. Yan) on consult help appreciated * Pt has significant cardiac risk factors including history of CABG, CHF, GASTON, DM, CAD, DM * Troponin x1 is negative, will trend q6h x2 with EKGs * Pt received ASA 325 mg PO in the ED * elevated probnp * Aspirin 81mg po daily * Lasix 20mg IV Q12H * Toprol 12.5mg PO daily * Cozaar 25mg PO daily * Crestor 10mg PoqHS * Will order echo * Echo (08/25): normal V systolic function, dilated LA, trace to mild AR, and trace to mild TR * Myocardial Stress (11/03/18); small fixed inferior defect. No stress induced ischemia. Normal EF. * Chest xray (11/22/18): no active disease. no significant interval change ayleen red ot the prior examination * Cath (11/24/18); coronary Artery disease, Recommend JUSTIN, recommend saphenous vein graft to circumflex intervention as an inpatient or after discharge * Echocardiogram (11/23/18): normal left ventricular systolic function. moderate aortic regurgitation * Fluid restriction * Daily Weight 3. Hx of asthma,, history ofOSA Assessment/Plan * Pulm Dr. Akers, consulted. Recommendations appreciated. * patient recommended to using autopap; does not use it; discussed with pulm noted noncompliance * Duoneb q6h prn * Breo Ellipta 1p uff inhaled RQDaily * CPAP at 14 cm H2o at night 4. Abdominal distension with pain History of Gastritis Small hiatus hernia Assessment/Plan * Patient had visited his GI this morning day of admission; attempted to call awaiting call back * prior hospitalization: * Abd CT in 09/2018 shows few scattered colonic diverticuli without evidence of diverticulitis. Patchy B/L lower infiltrates. Umbilical and inguinal hernia with fat. Diffuse constipation. * Abd CT angiogram 09/2018 shows diffuse constipation no evidence of ischemia. * Sennakot PO daily * Obstructive series: unremarkable radiographs of chest and abdomen. No evidence of mechanical bowel obstruction * Prior EGD (11/2016) available in the EMR 5. Hx of CAD with CABG and stent Assessment/Plan * Cardiology (Dr. Yan) on consult help appreciated * Aspirin 81mg po daily * Lasix 20mg IV Q12H * Toprol 12.5mg PO daily * Cozaar 25mg PO daily * Crestor 10mg PoqHS * Will order echo * Myocardial perfusion scan 11/03/2018 shows normal myocardial perfusion test. Small fixed inferior defect. No ischemia. * Echo 08/17/2016 shows normal LV, dilated LA. trace to mild AR, TR. * Cath (11/24/18); coronary Artery disease, Recommend JUSTIN, recommend saphenous vein graft to circumflex intervention as an inpatient or after discharge * Echocardiogram (11/23/18): normal left ventricular systolic function. moderate aortic regurgitation 6. NIDDM2 Assessment/Plan * HgbA1c is 6.8 on 09/2018 * Accuchecks ACHS * RISS low * Hypoglycemia protocol * Aspirin 81mg po daily * Crestor 10mg PoqHS 7. Prior history of multifocal pneumonia Assessment/Plan * Recent hospitalization * CT chest angio 09/2018 showed pulmonary infiltrates, no evidence of PE. * He completed a course of doxycycline upon discharge * Afebrile, no white count 8. Hx of PAD/PVD Assessment/Plan * Continue home cilostazol 50mg PO BID * Continue ASA 81mg Po daily 9. Hx of gastritis Assessment/Plan * Continue home protonix 40 mg PO daily 9. Hx of cervical neuropathy/diabetic neuropathy Assessment/Plan * Continue home duloxetine 60 mg PO BID, gabapentin 100 mg PO BID 10. Leg edema Assessment/Plan * attributed to chf exacerbation * venous doppler (leg) ordered * improving 11. PPx: * GI ppx with protonix 40 mg PO daily * VTE ppx with Heparin 5000 sc q12 * HHD, CCD with 1.5L fluid restriction * PT/OT eval * monitor telemetry * changed to inpatient
[2018-11-24] MEDS: (Novolin R) Insulin Human Regular 100 units/ml vial SC SCH ×2 (07:30→11:49)
[2018-11-24] MEDS ORDERED: Midazolam 2 MG/2 ML VIAL ONE (07:49)
[2018-11-24] MEDS: Fluticasone-Vilanterol 100/25mcg Diskus INH SCH (08:35)
--- NOTE | 2018-11-24 11:00 | CARD ---
APPROVED REPORT Date of service: 11/23/2018 EKG Measurement Heart [id number] <Conclusion> Normal sinus rhythm Possible Left atrial enlargement Nonspecific intraventricular conduction delay ST & T wave abnormality, consider anterolateral ischemia Abnormal ECG
--- NOTE | 2018-11-24 11:03 | CP.PCM.PN ---
Subjective - Date & Time of Evaluation Date of Evaluation: 11/24/18 Time of Evaluation: 10:59 - Subjective Subjective: Patient s/p Cardiac cath 1. L Main: patent 2. LAD Prox 100% 3. L Cx: Mid 100% instent 4. RCA: Mid 100%, Left to Right collaterals 5. AGUERO to LAD patent 6. SVG to OM 80% 7. EF 55%, EDP 20, No 8. Aortogram reveals moderate Aortic insuffiency A/P: CAD management JUSTIN to assess Aortic valve SVG graft intervention prior to discharge or as out patient Objective - Vital Signs/Intake and Output Vital Signs (last 24 hours): Temp Pulse Resp BP Pulse Ox 97.5 F L 85 20 118/60 96 11/24/18 06:23 11/24/18 06:23 11/24/18 06:23 11/24/18 06:23 11/24/18 06:23 Intake and Output: 11/24/18 11/24/18 06:59 18:59 Intake Total 400 Balance 400 - Medications Medications: Current Medications Albuterol/Ipratropium (Duoneb 3 Mg/0.5 Mg (3 Ml) Ud) 3 ml INH RQ6 PRN PRN Reason: Shortness of Breath Aspirin (Ecotrin) 81 mg PO DAILY [facility] Last Admin: 11/23/18 10:30 Dose: 81 mg Cilostazol (Pletal) 50 mg PO BID [facility] Last Admin: 11/23/18 17:50 Dose: 50 mg Dextrose (Dextrose 50% Inj) 0 ml IV STAT PRN; Protocol PRN Reason: Hypoglycemia Protocol Dextrose (Glutose 15) 0 gm PO ONCE PRN; Protocol PRN Reason: Hypoglycemia Protocol Duloxetine HCl (Cymbalta) 60 mg PO DAILY [facility] Last Admin: 11/23/18 10:56 Dose: 60 mg Fluticasone/Vilanterol (Breo Ellipta 100-25 Mcg Inh) 1 puff INH RQD [facility] Last Admin: 11/24/18 08:35 Dose: Not Given Furosemide (Lasix) 20 mg IVP Q12 [facility] Last Admin: 11/23/18 21:34 Dose: 20 mg Gabapentin (Neurontin) 100 mg PO BID [facility] Last Admin: 11/23/18 17:40 Dose: 100 mg Glucagon (Glucagen Diagnostic Kit) 0 mg IM STAT PRN; Protocol PRN Reason: Hypoglycemia Protocol Heparin Sodium (Porcine) (Heparin) 5,000 units SC Q12 [facility] Last Admin: 11/23/18 21:35 Dose: 5,000 units Dextrose (Dextrose 5% In Water 1000 Ml) 1,000 mls @ 0 mls/hr IV .Q0M PRN; Protocol PRN Reason: Hypoglycemia Protocol Insulin Human Regular (Novolin R) 0 unit SC ACHS [facility]; Protocol Last Admin: 11/23/18 21:50 Dose: Not Given Losartan Potassium (Cozaar) 25 mg PO DAILY [facility] Last Admin: 11/23/18 10:30 Dose: 25 mg Metoprolol Succinate (Toprol Xl) 12.5 mg PO DAILY [facility] Last Admin: 11/23/18 10:56 Dose: 12.5 mg Pantoprazole Sodium (Protonix Ec Tab) 40 mg PO DAILY [facility] Last Admin: 11/23/18 10:30 Dose: 40 mg Rosuvastatin Calcium (Crestor) 10 mg PO HS [facility] Last Admin: 11/23/18 21:35 Dose: 10 mg Senna/Docusate Sodium (Senokot S 50 Mg-8.6 Mg) 1 tab PO DAILY [facility] Last Admin: 11/23/18 10:30 Dose: 1 tab - Labs Labs: 11/24/18 06:19 11/24/18 06:19 PT 14.0 SECONDS (9.7-12.2) H 11/22/18 12:56 INR 1.3 11/22/18 12:56 APTT 38 SECONDS (21-34) H 11/22/18 12:56
[2018-11-24] MEDS: Cilostazol 50 mg Tab UD PO SCH ×2 (11:14→18:31)
[2018-11-24] MEDS: Metoprolol Succinate 12.5 mg XL Tab PO SCH (11:15)
[2018-11-24] MEDS: Docusate-Senna 50 mg-8.6 mg Tab PO SCH (11:16)
[2018-11-24] MEDS: Pantoprazole 40 mg EC Tab PO SCH (11:16)
--- NOTE | 2018-11-24 18:19 | CP.PCM.PN ---
Subjective - Date & Time of Evaluation Date of Evaluation: 11/24/18 Time of Evaluation: 18:17 - Subjective Subjective: Pt is seen and examined Reports multiple nonspecific complains Objective - Vital Signs/Intake and Output Vital Signs (last 24 hours): Temp Pulse Resp BP Pulse Ox 97.4 F L 74 20 104/59 L 96 11/24/18 11:28 11/24/18 16:00 11/24/18 12:42 11/24/18 11:28 11/24/18 11:00 Intake and Output: 11/24/18 11/24/18 06:59 18:59 Intake Total 400 480 Output Total 1000 Balance 400 -520 - Medications Medications: Current Medications Albuterol/Ipratropium (Duoneb 3 Mg/0.5 Mg (3 Ml) Ud) 3 ml INH RQ6 PRN PRN Reason: Shortness of Breath Aspirin (Ecotrin) 81 mg PO DAILY [facility] Last Admin: 11/24/18 11:16 Dose: 81 mg Cilostazol (Pletal) 50 mg PO BID [facility] [place] Last Admin: 11/24/18 11:14 Dose: 50 mg Dextrose (Dextrose 50% Inj) 0 ml IV STAT PRN; Protocol PRN Reason: Hypoglycemia Protocol Dextrose (Glutose 15) 0 gm PO ONCE PRN; Protocol PRN Reason: Hypoglycemia Protocol Duloxetine HCl (Cymbalta) 60 mg PO DAILY [facility] [place] Last Admin: 11/24/18 11:15 Dose: 60 mg Fluticasone/Vilanterol (Breo Ellipta 100-25 Mcg Inh) 1 puff INH RQD [facility] [place] Last Admin: 11/24/18 08:35 Dose: Not Given Furosemide (Lasix) 20 mg IVP Q12 [facility] [place] Last Admin: 11/24/18 11:17 Dose: 20 mg Gabapentin (Neurontin) 100 mg PO BID [facility] [place] Last Admin: 11/24/18 11:17 Dose: 100 mg Glucagon (Glucagen Diagnostic Kit) 0 mg IM STAT PRN; Protocol PRN Reason: Hypoglycemia Protocol Heparin Sodium (Porcine) (Heparin) 5,000 units SC Q12 [facility] [place] Last Admin: 11/24/18 10:00 Dose: Not Given Dextrose (Dextrose 5% In Water 1000 Ml) 1,000 mls @ 0 mls/hr IV .Q0M PRN; Protocol PRN Reason: Hypoglycemia Protocol Insulin Human Regular (Novolin R) 0 unit SC ACHS [facility] [place]; Protocol Last Admin: 11/24/18 11:49 Dose: 1 unit Losartan Potassium (Cozaar) 25 mg PO DAILY [facility] [place] Last Admin: 11/24/18 11:16 Dose: 25 mg Metoprolol Succinate (Toprol Xl) 12.5 mg PO DAILY [facility] Last Admin: 11/24/18 11:15 Dose: 12.5 mg Pantoprazole Sodium (Protonix Ec Tab) 40 mg PO DAILY [facility] [place] Last Admin: 11/24/18 11:16 Dose: 40 mg Rosuvastatin Calcium (Crestor) 10 mg PO HS [facility] [place] Last Admin: 11/23/18 21:35 Dose: 10 mg Senna/Docusate Sodium (Senokot S 50 Mg-8.6 Mg) 1 tab PO DAILY [facility] [place] Last Admin: 11/24/18 11:16 Dose: 1 tab - Labs Labs: 11/24/18 06:19 11/24/18 06:19 PT 14.0 SECONDS (9.7-12.2) H 11/22/18 12:56 INR 1.3 11/22/18 12:56 APTT 38 SECONDS (21-34) H 11/22/18 12:56 - Head Exam Head Exam: NORMAL INSPECTION - Eye Exam Eye Exam: Normal appearance - ENT Exam ENT Exam: Mucous Membranes Moist - Respiratory Exam Respiratory Exam: Clear to Ausculation Bilateral - Cardiovascular Exam Cardiovascular Exam: REGULAR RHYTHM, +S1, +S2 - GI/Abdominal Exam GI & Abdominal Exam: Soft, Normal Bowel Sounds - Extremities Exam Extremities Exam: Normal Inspection - Neurological Exam Neurological Exam: Alert, Oriented x3 Assessment and Plan (1) Obstructive sleep apnea (adult) (pediatric) Status: Acute (2) Asthma Status: Acute (3) CHF (congestive heart failure) Status: Acute - Assessment and Plan (Free Text) Plan: Breo ellipta Bronchodilators CPAP at night Lasix DVT/GI prophalaxis
--- NOTE | 2018-11-24 20:34 | CARDCATH ---
PROCEDURE DATE: 11/24/2018 PROCEDURES: 1. Left heart catheterization. 2. Coronary angiogram. 3. Saphenous vein graft angiogram. 4. Left internal mammary artery graft angiogram. 5. Aortic root angiogram. CLINICAL INDICATIONS: 1. Chest pain. 2. Diabetes. 3. Coronary artery disease with history of CABG and multiple stents. 4. Hypertension. 5. Hyperlipidemia. REFERRING PHYSICIAN: Adalberto White MD PERFORMING PHYSICIAN: Rikki Yan MD DESCRIPTION OF PROCEDURE: After informed consent, the patient was prepped and draped in the usual sterile fashion. A 2% lidocaine was given in the right groin for local anesthesia. Using micropuncture technique, 6-Andorran sheath was introduced into right common femoral artery. A JR4 6-Andorran diagnostic catheter engaged into right coronary artery. Contrast injected and right coronary angiogram was done. Then, the same catheter engaged into AGUERO graft. Contrast injected and AGUERO to LAD graft angiogram was done. Then, the catheter was pulled back and engaged into saphenous vein graft. Saphenous vein to OM1 graft angiogram was done. Then, the catheter was exchanged to JL4.5 diagnostic catheter. The catheter engaged into left main coronary artery. Contrast injected and left coronary angiogram was done. Then, the pigtail catheter inserted into left ventricle. LVEDP measured. Contrast injected and LV angiogram was done. The catheter was pulled back across the aortic valve. Gradient across the aortic valve was measured. Then, the catheter was seated in the ascending aorta. Contrast injected and the aortic root angiogram was done. The patient tolerated the procedure well. Postprocedure, Mynx closure device was deployed in the right groin with excellent hemostasis. FINDINGS: 1. Left main coronary artery is patent. 2. LAD has proximal 100% stenosis. 3. Mid left circumflex has 100% in-stent restenosis. 4. Right coronary artery is dominant. Mid right coronary artery has 100% occlusion. However, RCA is receiving collaterals from the left coronary system. 5. AGUERO to LAD graft is patent. 6. SVG graft to OM has an 80% to 85% stenosis at the anastomotic site. 7. LV angiogram has revealed EF around 55%. Mild global hypokinesis. EDP is 20. No gradient across the aortic valve. 8. Aortic root angiogram is suggestive of moderate aortic insufficiency. No aneurysm or dissection noted. IMPRESSION: 1. Coronary artery disease as described above. 2. Recommend JUSTIN to assess aortic valve. 3. Recommend saphenous vein graft to circumflex intervention as an inpatient or after discharge. Rikki Yan MD [facility] # [id number]
--- NOTE | 2018-11-25 06:53 | CP.PCM.PN ---
<Jerry Tavera - Last Filed: 11/25/18 06:54> Subjective - Date & Time of Evaluation Date of Evaluation: 11/25/18 Time of Evaluation: 06:52 - Subjective Subjective: HOSPITALIST SERVICE Pt s/e at bedside, complains of headache, denies any other acute symptoms denies CP SOB FC NV Objective - Vital Signs/Intake and Output Vital Signs (last 24 hours): Temp Pulse Resp BP Pulse Ox 98.1 F 85 18 109/60 94 L 11/25/18 00:00 11/25/18 04:46 11/25/18 00:00 11/25/18 00:00 11/25/18 00:00 Intake and Output: 11/24/18 11/25/18 18:59 06:59 Intake Total 480 Output Total 1000 300 Balance -520 -300 - Medications Medications: Current Medications Acetaminophen (Tylenol 325mg Tab) 650 mg PO STAT STA Stop: 11/25/18 06:51 Albuterol/Ipratropium (Duoneb 3 Mg/0.5 Mg (3 Ml) Ud) 3 ml INH RQ6 PRN PRN Reason: Shortness of Breath Aspirin (Ecotrin) 81 mg PO DAILY [facility] Last Admin: 11/24/18 11:16 Dose: 81 mg Cilostazol (Pletal) 50 mg PO BID [facility] Last Admin: 11/24/18 18:31 Dose: 50 mg Dextrose (Dextrose 50% Inj) 0 ml IV STAT PRN; Protocol PRN Reason: Hypoglycemia Protocol Dextrose (Glutose 15) 0 gm PO ONCE PRN; Protocol PRN Reason: Hypoglycemia Protocol Duloxetine HCl (Cymbalta) 60 mg PO DAILY [facility] Last Admin: 11/24/18 11:15 Dose: 60 mg Fluticasone/Vilanterol (Breo Ellipta 100-25 Mcg Inh) 1 puff INH RQD [facility] Last Admin: 11/24/18 08:35 Dose: Not Given Furosemide (Lasix) 20 mg IVP Q12 [facility] Last Admin: 11/24/18 21:34 Dose: 20 mg Gabapentin (Neurontin) 100 mg PO BID [facility] Last Admin: 11/24/18 18:32 Dose: 100 mg Glucagon (Glucagen Diagnostic Kit) 0 mg IM STAT PRN; Protocol PRN Reason: Hypoglycemia Protocol Heparin Sodium (Porcine) (Heparin) 5,000 units SC Q12 [facility] Last Admin: 11/24/18 21:35 Dose: 5,000 units Dextrose (Dextrose 5% In Water 1000 Ml) 1,000 mls @ 0 mls/hr IV .Q0M PRN; Protocol PRN Reason: Hypoglycemia Protocol Insulin Human Regular (Novolin R) 0 unit SC ACHS [facility]; Protocol Last Admin: 11/24/18 11:49 Dose: 1 unit Losartan Potassium (Cozaar) 25 mg PO DAILY [facility] Last Admin: 11/24/18 11:16 Dose: 25 mg Metoprolol Succinate (Toprol Xl) 12.5 mg PO DAILY [facility] Last Admin: 11/24/18 11:15 Dose: 12.5 mg Pantoprazole Sodium (Protonix Ec Tab) 40 mg PO DAILY [facility] Last Admin: 11/24/18 11:16 Dose: 40 mg Rosuvastatin Calcium (Crestor) 10 mg PO HS [facility] Last Admin: 11/24/18 21:35 Dose: 10 mg Senna/Docusate Sodium (Senokot S 50 Mg-8.6 Mg) 1 tab PO DAILY [facility] Last Admin: 11/24/18 11:16 Dose: 1 tab - Labs Labs: 11/24/18 06:19 11/24/18 06:19 PT 14.0 SECONDS (9.7-12.2) H 11/22/18 12:56 INR 1.3 11/22/18 12:56 APTT 38 SECONDS (21-34) H 11/22/18 12:56 - Additional Findings Additional findings: - Constitutional Appears: Non-toxic, No Acute Distress - Head Exam Head Exam: ATRAUMATIC, NORMAL INSPECTION - Eye Exam Eye Exam: EOMI, Normal appearance - ENT Exam ENT Exam: Mucous Membranes Moist - Neck Exam Neck exam: Positive for: Normal Inspection - Respiratory Exam Respiratory Exam: Chest Wall Tenderness (left sternal reproducible pain), Rales (at the bases). absent: Accessory Muscle Use, Decreased Breath Sounds, Rhonchi, Wheezes, Respiratory Distress (no conversational dyspnea), Stridor Additional comments: short expiratory phase - Cardiovascular Exam Cardiovascular Exam: REGULAR RHYTHM, +S1, +S2, +S4 (+S3). absent: Tachycardia - GI/Abdominal Exam GI & Abdominal Exam: Distended (ascites), Hernia (umbilical hernia), Normal Bowel Sounds, Soft, Tenderness (left upper and left lower quadrant tenderness). absent: Firm, Guarding, Rebound, Rigid - Extremities Exam Extremities exam: Positive for: normal capillary refill, pedal edema (1+ to the midshin, trace from mid barone to knee; right worse than left), pedal pulses pres ent (1+). Negative for: calf tenderness - Back Exam Back exam: NORMAL INSPECTION. absent: CVA tenderness (L), CVA tenderness (R), rash noted, midline tenderness - Neurological Exam Neurological exam: Alert, Oriented x3 - Psychiatric Exam Psychiatric exam: Normal Affect, Normal Mood - Skin Skin Exam: Dry, Normal Color, Warm Assessment and Plan - Assessment and Plan (Free Text) Assessment: Patient is a 58 year old Male with pmhx of CAD with CABG 2003, stent 2010 , DM2, PVD, Hyperlipidemia, angina, HTN, gastritis that came to the ED for dyspnea on exertion, chest pain, and abdomen enlargement and pain. Plan: Hx of CAD with CABG and stent Myocardial perfusion scan 11/03/2018 shows normal myocardial perfusion test. Small fixed inferior defect. No ischemia. Echo 08/17/2018 shows normal LV, dilated LA. trace to mild AR, TR. Continue ASA 81 mg PO daily, continue Crestor 10 mg PO daily, beta valarie Cardiology, Dr. Yan, consulted. Troponin is 0.0890-->0.1620-->0.1170 Pt is s/p cath this morning, well tolerated. LAD Prox 100% Mid 100% instent Mid 100%, Left to Right collaterals AGUERO to LAD patent SVG to OM 80% EF 55%, EDP 20, No Aortogram reveals moderate Aortic insuffiency Pt to go for JUSTIN on tuesday HFpEF exacerbation, acute on chronic CXR with pulmonary vascular congestion, no infiltrate, s/p CABG. BNP on admission is 3240 Lasix 20 mg IVP q12 Continue home Losartan 25 mg Metoprolol succinate 12.5 mg PO daily will start tomorrow Fluid restriction 1.5L Daily Is and Os Cardiology, Dr. Yan, consulted. Recommendations appreciated. Possible cath tomorrow morning Echo shows EF approximately 62%, moderate aortic regurgitation. Hx of asthma, GASTON Duoneb q6h prn Continue home breo CPAP at 14 cm H2o at night. Will reduce inspiratory pressure tonight. Stressed importance of need for CPAP for GASTON Pulmonology Dr. Akers, consulted. Recommendations appreciated. Abdominal distension with pain Abd CT in 09/2018 shows few scattered colonic diverticuli without evidence of diverticulitis. Patchy B/L lower infiltrates. Umbilical and inguinal hernia with fat. Diffuse constipation. Abd CT angiogram 09/2018 shows diffuse constipation no evidence of ischemia. Sennakot PO daily Abdominal obstructive series shows no evidence of bowel obstruction. Pt reports he saw GI, Dr. Alvarado, 11/22/18. case discussed with Dr. Alvarado, who reports pt went there to complain of abdominal pain but was sent to the ED after complaints of chest pain. Pt's abdominal pain is chronic as per Dr. Alvarado. Continue to monitor NIDDM2 HgbA1c is 6.8 on 09/2018 Accuchecks ACHS RISS low Hypoglycemia protocol Prior history of multifocal pnuemonia CT chest angio 09/2018 showed pulmonary infiltrates, no evidence of PE. He completed a course of doxycycline PO Hx of PAD/PVD Continue home cilostazol 50 mg PO daily Hx of gastritis Continue home protonix 40 mg PO daily Hx of cervical neuropathy/diabetic neuropathy Continue home duloxetine 60 mg PO BID, gabapentin 100 mg PO BID PPx: GI ppx with protonix 40 mg PO daily VTE ppx with Heparin 5000 sc q12 HHD, CCD (vegetarian) with 1.5L fluid restriction PT/OT eval <Erica Stevenson V - Last Filed: 11/25/18 14:51> Objective - Vital Signs/Intake and Output Vital Signs (last 24 hours): Temp Pulse Resp BP Pulse Ox 99.1 F 94 H 18 109/65 95 11/25/18 07:00 11/25/18 08:00 11/25/18 07:00 11/25/18 10:07 11/25/18 07:00 Intake and Output: 11/25/18 11/25/18 06:59 18:59 Output Total 300 Balance -300 - Medications Medications: Current Medications Albuterol/Ipratropium (Duoneb 3 Mg/0.5 Mg (3 Ml) Ud) 3 ml INH RQ6 PRN PRN Reason: Shortness of Breath Aspirin (Ecotrin) 81 mg PO DAILY [facility] Last Admin: 11/25/18 10:07 Dose: 81 mg Cilostazol (Pletal) 50 mg PO BID [facility] Last Admin: 11/25/18 10:08 Dose: 50 mg Dextrose (Dextrose 50% Inj) 0 ml IV STAT PRN; Protocol PRN Reason: Hypoglycemia Protocol Dextrose (Glutose 15) 0 gm PO ONCE PRN; Protocol PRN Reason: Hypoglycemia Protocol Duloxetine HCl (Cymbalta) 60 mg PO DAILY [facility] Last Admin: 11/25/18 10:08 Dose: 60 mg Fluticasone/Vilanterol (Breo Ellipta 100-25 Mcg Inh) 1 puff INH RQD [facility] Last Admin: 11/25/18 10:55 Dose: 1 puff Furosemide (Lasix) 20 mg IVP Q12 [facility] Last Admin: 11/25/18 10:07 Dose: 20 mg Gabapentin (Neurontin) 100 mg PO BID [facility] Last Admin: 11/25/18 10:07 Dose: 100 mg Glucagon (Glucagen Diagnostic Kit) 0 mg IM STAT PRN; Protocol PRN Reason: Hypoglycemia Protocol Heparin Sodium (Porcine) (Heparin) 5,000 units SC Q12 [facility] Last Admin: 11/25/18 10:09 Dose: 5,000 units Dextrose (Dextrose 5% In Water 1000 Ml) 1,000 mls @ 0 mls/hr IV .Q0M PRN; Protocol PRN Reason: Hypoglycemia Protocol Insulin Human Regular (Novolin R) 0 unit SC ACHS [facility]; Protocol Last Admin: 11/25/18 12:44 Dose: 2 unit Losartan Potassium (Cozaar) 25 mg PO DAILY [facility] Last Admin: 11/25/18 10:09 Dose: 25 mg Metoprolol Succinate (Toprol Xl) 12.5 mg PO DAILY [facility] Last Admin: 11/25/18 10:09 Dose: 12.5 mg Pantoprazole Sodium (Protonix Ec Tab) 40 mg PO DAILY [facility] Last Admin: 11/25/18 10:06 Dose: 40 mg Potassium Chloride (K-Dur 20 Meq Er Tab) 20 meq PO DAILY [facility] Rosuvastatin Calcium (Crestor) 10 mg PO HS [facility] Last Admin: 11/24/18 21:35 Dose: 10 mg Senna/Docusate Sodium (Senokot S 50 Mg-8.6 Mg) 1 tab PO DAILY [facility] Last Admin: 11/25/18 10:07 Dose: 1 tab - Labs Labs: 11/25/18 07:02 11/25/18 07:02 PT 14.0 SECONDS (9.7-12.2) H 11/22/18 12:56 INR 1.3 11/22/18 12:56 APTT 38 SECONDS (21-34) H 11/22/18 12:56 Attending/Attestation - Attestation I have personally seen and examined this patient.: Yes I have fully participated in the care of the patient.: Yes I have reviewed all pertinent clinical information, including history, physical exam and plan: Yes Notes (Text): Patient seen, examined, and case discussed with day-time resident. Patient remains noncompliant on his CPAP. Patient's edema over left/right lower extremities are improving. Awaiting official report of venous dopplers. Patient reports cough, nonproductive. Patient is scheduled for JUSTIN at 9am with Dr. Almeida to evaluate aortic regurgitation prior to further evaluation by Dr. Yan of patient's severe coronary disease. Assessment/Plan 1. Chest pain secondary to acute on chronic CHF exacerbation, severe coronary artery disease, possible aortic regurgitation Nonstemi Assessment/Plan * changed to inpatient for workup in light of cath findings * Cardiology (Dr. Yan) on consult help appreciated * Pt has significant cardiac risk factors including history of CABG, CHF, GASTON, DM, CAD, DM * Troponin x1 is negative, will trend q6h x2 with EKGs * Pt received ASA 325 mg PO in the ED * Positive Troponin prompting cardiac cath 11/24/18 * elevated probnp * improving * Aspirin 81mg po daily * Lasix 20mg IV Q12H * Toprol 12.5mg PO daily * Cozaar 25mg PO daily * Crestor 10mg PoqHS * Echo (08/25): normal V systolic function, dilated LA, trace to mild AR, and trace to mild TR * Myocardial Stress (11/03/18); small fixed inferior defect. No stress induced is chemia. Normal EF. * Chest xray (11/22/18): no active disease. no significant interval change compared ot the prior examination * Cath (11/24/18); coronary Artery disease, Recommend JUSTIN, recommend saphenous vein graft to circumflex intervention as an inpatient or after discharge * Echocardiogram (11/23/18): normal left ventricular systolic function. moderate aortic regurgitation * Scheduled for JUSTIN at 9am [address] Dr[address] Almeida to evaluate aortic regurgitation prior to further evaluation by Dr. Yan of patient's severe coronary disease on Tuesday11/27/18. 2. HFpEF exacerbation, acute on chronic Assessment/Plan * Cardiology (Dr. Yan) on consult help appreciated * Pt has significant cardiac risk factors including history of CABG, CHF, GASTON, DM, CAD, DM * Troponin x1 is negative, will trend q6h x2 with EKGs * Pt received ASA 325 mg PO in the ED * elevated probnp * Aspirin 81mg po daily * Lasix 20mg IV Q12H * Toprol 12.5mg PO daily * Cozaar 25mg PO daily * Crestor 10mg PoqHS * Echo (08/25): normal V systolic function, dilated LA, trace to mild AR, and trace to mild TR * Myocardial Stress (11/03/18); small fixed inferior defect. No stress induced ischemia. Normal EF. * Chest xray (11/22/18): no active disease. no significant interval change compared ot the prior examination * Cath (11/24/18); coronary Artery disease, Recommend JUSTIN, recommend saphenous vein graft to circumflex intervention as an inpatient or after discharge * Echocardiogram (11/23/18): normal left ventricular systolic function. moderate aortic regurgitation * Scheduled for JUSTIN at [address]am [address] Dr[address] Almeida to evaluate aortic regurgitation prior to further evaluation by Dr. Yan of patient's severe coronary disease on Tuesday11/27/18. * Fluid restriction * Daily Weight 3. Hx of asthma,, history ofOSA Assessment/Plan * Pulm Dr. Akers, consulted. Recommendations appreciated. * patient recommended to using autopap; does not use it; discussed with pulm noted noncompliance * Duoneb q6h prn * Breo Ellipta 1p uff inhaled RQDaily * CPAP at 10 cm H2o at night * Patient noted noncompliance while in the hospitalization inspite of education 4. Abdominal distension with pain History of Gastritis Small hiatus hernia Assessment/Plan * Patient had visited his GI this morning day of admission; attempted to call awaiting call back * prior hospitalization: * Abd CT in 09/2018 shows few scattered colonic diverticuli without evidence of diverticulitis. Patchy B/L lower infiltrates. Umbilical and inguinal hernia with fat. Diffuse constipation. * Abd CT angiogram 09/2018 shows diffuse constipation no evidence of ischemia. * Sennakot PO daily * Obstructive series: unremarkable radiographs of chest and abdomen. No evidence of mechanical bowel obstruction * Prior EGD (11/2016) available in the EMR 5. Hx of CAD with CABG and stent Assessment/Plan * Cardiology (Dr. Yan) on consult help appreciated * Aspirin 81mg po daily * Lasix 20mg IV Q12H * Toprol 12.5mg PO daily * Cozaar 25mg PO daily * Crestor 10mg PoqHS * Will order echo * Myocardial perfusion scan 11/03/2018 shows normal myocardial perfusion test. Small fixed inferior defect. No ischemia. * Echo 08/17/2016 shows normal LV, dilated LA. trace to mild AR, TR. * Cath (11/24/18); coronary Artery disease, Recommend JUSTIN, recommend saphenous vein graft to circumflex intervention as an inpatient or after discharge * Echocardiogram (11/23/18): normal left ventricular systolic function. moderate aortic regurgitation * Scheduled for JUSTIN at 9am [address] Dr[address] Almeida to evaluate aortic regurgitation prior to further evaluation by Dr. Yan of patient's severe coronary disease on Tuesday11/27/18. 6. NIDDM2 Assessment/Plan * HgbA1c is 6.8 on 09/2018 * Accuchecks ACHS * RISS low * Hypoglycemia protocol * Aspirin 81mg po daily * Crestor 10mg PoqHS 7. Prior history of multifocal pneumonia Assessment/Plan * Recent hospitalization * CT chest angio 09/2018 showed pulmonary infiltrates, no evidence of PE. * He completed a course of doxycycline upon discharge * Afebrile, no white count 8. Hx of PAD/PVD Assessment/Plan * Continue home cilostazol 50mg PO BID * Continue ASA 81mg Po daily 9. Hx of gastritis Assessment/Plan * Continue home protonix 40 mg PO daily 9. Hx of cervical neuropathy/diabetic neuropathy Assessment/Plan * Continue home duloxetine 60 mg PO BID, gabapentin 100 mg PO BID 10. Leg edema Assessment/Plan * attributed to chf exacerbation * venous doppler (leg) ordered * improving 11. PPx: * GI ppx with protonix 40 mg PO daily * VTE ppx with Heparin 5000 sc q12 * HHD, CCD with 1.5L fluid restriction * PT/OT eval * monitor telemetry * changed to inpatient Disposition: * Scheduled for JUSTIN at 9am [address] Dr[address] Almeida to evaluate aortic regurgitation prior to further evaluation by Dr. Yan of patient's severe coronary disease on Tuesday11/27/18.
[2018-11-25 07:16] LABS: BASO % 0.5 % (0.0-2.0); EOS % 0.5 % (0.0-4.0); HEMOGLOBIN 11.5 g/dL (12.0-18.0); LYMPH # 0.4 K/uL (1.0-4.3); LYMPH % 6.9 % (20.0-40.0); MEAN CELL VOLUME 76.8 fL (80.0-94.0); MEAN CORPUSCULAR HEMOGLOBIN 24.1 pg (27.0-31.0); MEAN CORPUSCULAR HGB CONC 31.3 g/dL (33.0-37.0); MEAN PLATELET VOLUME 8.3 fL (7.2-11.7); MONO # 0.8 K/uL (0.0-0.8); MONO % 13.1 % (0.0-10.0); NRBC % 0.2 % (0.0-2.0); PLATELET COUNT 199 K/uL (130-400); RBC 4.78 Mil/uL (4.40-5.90); RED CELL DISTRIBUTION WIDTH 17.3 % (11.5-14.5); WHITE BLOOD COUNT 6.3 K/uL (4.8-10.8)
[2018-11-25] MEDS: (Novolin R) Insulin Human Regular 100 units/ml vial SC SCH ×4 (07:20→22:31)
[2018-11-25 07:26] LABS: ALB/GLOB RATIO 1.2 (1.0-2.1); ALBUMIN 3.8 g/dL (3.5-5.0); ALT/SGPT 31 U/L (21-72); AST/SGOT 30 U/L (17-59); BLOOD UREA NITROGEN 25 mg/dL (9-20); CALCIUM 9.1 mg/dl (8.6-10.4); GFR NON-AFRICAN AMERICAN > 60
[2018-11-25 07:28] LABS: B-TYPE NATRIURETIC PEPTIDE 1480 pg/mL (0-900)
[2018-11-25] MEDS ORDERED: Potassium Chloride 20 mEq ER Tab PO ONE (08:04)
[2018-11-25 09:58] LABS: BANDS 1 % (0-2); LYMPHOCYTE 7 % (20-40); MONOCYTE 15 % (0-10); NEUTROPHIL 77 % (50-75); TOTAL CELLS COUNTED 100
[2018-11-25 09:59] LABS: ANISOCYTOSIS SLIGHT; PLATELET ESTIMATE NORMAL (NORMAL)
[2018-11-25 10:00] LABS: HYPOCHROMIC MODERATE; LARGE PLATELETS PRESENT; MICROCYTOSIS SLIGHT; POLYCHROMIC SLIGHT; TOXIC GRANULATION PRESENT
[2018-11-25] MEDS ORDERED: Potassium Chloride 20 mEq ER Tab PO SCH (10:00)
[2018-11-25] MEDS: Pantoprazole 40 mg EC Tab PO SCH (10:06)
[2018-11-25] MEDS: Docusate-Senna 50 mg-8.6 mg Tab PO SCH (10:07)
[2018-11-25] MEDS: Cilostazol 50 mg Tab UD PO SCH ×2 (10:08→19:28)
[2018-11-25] MEDS: Metoprolol Succinate 12.5 mg XL Tab PO SCH (10:09)
[2018-11-25] MEDS: Fluticasone-Vilanterol 100/25mcg Diskus INH SCH (10:55)
--- NOTE | 2018-11-25 13:34 | CP.PCM.PN ---
Subjective - Date & Time of Evaluation Date of Evaluation: 11/25/18 Time of Evaluation: 13:32 - Subjective Subjective: Pt is seen and examined Reports improved dyspnea Objective - Vital Signs/Intake and Output Vital Signs (last 24 hours): Temp Pulse Resp BP Pulse Ox 99.1 F 94 H 18 109/65 95 11/25/18 07:00 11/25/18 08:00 11/25/18 07:00 11/25/18 10:07 11/25/18 07:00 Intake and Output: 11/25/18 11/25/18 06:59 18:59 Output Total 300 Balance -300 - Medications Medications: Current Medications Albuterol/Ipratropium (Duoneb 3 Mg/0.5 Mg (3 Ml) Ud) 3 ml INH RQ6 PRN PRN Reason: Shortness of Breath Aspirin (Ecotrin) 81 mg PO DAILY [facility] Last Admin: 11/25/18 10:07 Dose: 81 mg Cilostazol (Pletal) 50 mg PO BID [facility] Last Admin: 11/25/18 10:08 Dose: 50 mg Dextrose (Dextrose 50% Inj) 0 ml IV STAT PRN; Protocol PRN Reason: Hypoglycemia Protocol Dextrose (Glutose 15) 0 gm PO ONCE PRN; Protocol PRN Reason: Hypoglycemia Protocol Duloxetine HCl (Cymbalta) 60 mg PO DAILY [facility] Last Admin: 11/25/18 10:08 Dose: 60 mg Fluticasone/Vilanterol (Breo Ellipta 100-25 Mcg Inh) 1 puff INH RQD [facility] Last Admin: 11/25/18 10:55 Dose: 1 puff Furosemide (Lasix) 20 mg IVP Q12 [facility] Last Admin: 11/25/18 10:07 Dose: 20 mg Gabapentin (Neurontin) 100 mg PO BID [facility] Last Admin: 11/25/18 10:07 Dose: 100 mg Glucagon (Glucagen Diagnostic Kit) 0 mg IM STAT PRN; Protocol PRN Reason: Hypoglycemia Protocol Heparin Sodium (Porcine) (Heparin) 5,000 units SC Q12 [facility] Last Admin: 11/25/18 10:09 Dose: 5,000 units Dextrose (Dextrose 5% In Water 1000 Ml) 1,000 mls @ 0 mls/hr IV .Q0M PRN; Pro tocol PRN Reason: Hypoglycemia Protocol Insulin Human Regular (Novolin R) 0 unit SC ACHS [facility]; Protocol Last Admin: 11/25/18 12:44 Dose: 2 unit Losartan Potassium (Cozaar) 25 mg PO DAILY [facility] Last Admin: 11/25/18 10:09 Dose: 25 mg Metoprolol Succinate (Toprol Xl) 12.5 mg PO DAILY [facility] Last Admin: 11/25/18 10:09 Dose: 12.5 mg Pantoprazole Sodium (Protonix Ec Tab) 40 mg PO DAILY [facility] Last Admin: 11/25/18 10:06 Dose: 40 mg Potassium Chloride (K-Dur 20 Meq Er Tab) 20 meq PO DAILY [facility] Rosuvastatin Calcium (Crestor) 10 mg PO HS [facility] Last Admin: 11/24/18 21:35 Dose: 10 mg Senna/Docusate Sodium (Senokot S 50 Mg-8.6 Mg) 1 tab PO DAILY [facility] Last Admin: 11/25/18 10:07 Dose: 1 tab - Labs Labs: 11/25/18 07:02 11/25/18 07:02 PT 14.0 SECONDS (9.7-12.2) H 11/22/18 12:56 INR 1.3 11/22/18 12:56 APTT 38 SECONDS (21-34) H 11/22/18 12:56 - Head Exam Head Exam: NORMAL INSPECTION - Eye Exam Eye Exam: Normal appearance - ENT Exam ENT Exam: Mucous Membranes Moist - Respiratory Exam Respiratory Exam: Clear to Ausculation Bilateral - Cardiovascular Exam Cardiovascular Exam: REGULAR RHYTHM, +S1, +S2 - GI/Abdominal Exam GI & Abdominal Exam: Soft, Normal Bowel Sounds - Neurological Exam Neurological Exam: Alert, Oriented x3 - Psychiatric Exam Psychiatric exam: Normal Affect, Normal Mood Assessment and Plan (1) Obstructive sleep apnea (adult) (pediatric) Status: Acute (2) Asthma Status: Acute (3) CHF (congestive heart failure) Status: Acute - Assessment and Plan (Free Text) Plan: Breo Ellipta Duonebs Awaiting JUSTIN CPAP at night Lasix DVT/GI prophalaxis
[2018-11-25 16:34] VITALS: RESP 20
--- NOTE | 2018-11-25 20:27 | CP.PCM.PN ---
Subjective - Date & Time of Evaluation Date of Evaluation: 11/25/18 Time of Evaluation: 10:10 - Subjective Subjective: Patient with imptoved dyspnea and no chest pain Physical examination - Additional Findings Additional findings: - Constitutional Appears: Non-toxic, No Acute Distress - Head Exam Head Exam: ATRAUMATIC, NORMAL INSPECTION - Eye Exam Eye Exam: EOMI, Normal appearance - ENT Exam ENT Exam: Mucous Membranes Moist - Neck Exam Neck exam: Positive for: Normal Inspection - Respiratory Exam Respiratory Exam: Chest Wall Tenderness (left sternal reproducible pain), Rales (at the bases). absent: Accessory Muscle Use, Decreased Breath Sounds, Rhonchi, Wheezes, Respiratory Distress (no conversational dyspnea), Stridor Additional comments: short expiratory phase - Cardiovascular Exam Cardiovascular Exam: REGULAR RHYTHM, +S1, +S2, +S4 (+S3). absent: Tachycardia - GI/Abdominal Exam GI & Abdominal Exam: Distended (ascites), Hernia (umbilical hernia), Normal Bowel Sounds, Soft, Tenderness (left upper and left lower quadrant tenderness). absent: Firm, Guarding, Rebound, Rigid - Extremities Exam Extremities exam: Positive for: normal capillary refill, pedal edema (1+ to the midshin, trace from mid barone to knee; right worse than left), pedal pulses present (1+). Negative for: calf tenderness - Back Exam Back exam: NORMAL INSPECTION. absent: CVA tenderness (L), CVA tenderness (R), rash noted, midline tenderness - Neurological Exam Neurological exam: Alert, Oriented x3 - Psychiatric Exam Psychiatric exam: Normal Affect, Normal Mood - Skin Skin Exam: Dry, Normal Color, Warm Assessment and Plan - Assessment and Plan (Free Text) Assessment: Patient is a 58 year old [place] Male with pmhx of CAD with CABG 2003, stent 2010, DM2, PVD, Hyperlipidemia, angina, HTN, gastritis that came to the ED for dyspnea on exertion, chest pain, and abdomen enlargement and pain. Plan: Hx of CAD with CABG and stent Myocardial perfusion scan 11/03/2018 shows normal myocardial perfusion test. Small fixed inferior defect. No ischemia. Echo 08/17/2018 shows normal LV, dilated LA. trace to mild AR, TR. Continue ASA 81 mg PO daily, continue Crestor 10 mg PO daily, beta valarie Troponin is 0.0890-->0.1620-->0.1170 Pt is s/p cath this morning, well tolerated. LAD Prox 100% Mid 100% instent Mid 100%, Left to Right collaterals AGUERO to LAD patent SVG to OM 80% EF 55%, EDP 20, No Aortogram reveals moderate Aortic insuffiency Pt to go for JUSTIN on tuesday HFpEF exacerbation, acute on chronic CXR with pulmonary vascular congestion, no infiltrate, s/p CABG. BNP on admission is 3240 Lasix 20 mg IVP q12 Continue home Losartan 25 mg Metoprolol succinate 12.5 mg PO daily will start tomorrow Fluid restriction 1.5L Daily Is and Os Echo shows EF approximately 62%, moderate aortic regurgitation. Hx of asthma, GASTON Duoneb q6h prn Continue home breo CPAP at 14 cm H2o at night. Will reduce inspiratory pressure tonight. Stressed importance of need for CPAP for GASTON Pulmonology Dr. Akers, consulted. Recommendations appreciated. Abdominal distension with pain Abd CT in 09/2018 shows few scattered colonic diverticuli without evidence of diverticulitis. Patchy B/L lower infiltrates. Umbilical and inguinal hernia with fat. Diffuse constipation. Abd CT angiogram 09/2018 shows diffuse constipation no evidence of ischemia. Senn[place]ot PO daily Abdominal obstructive series shows no evidence of bowel obstruction. Pt reports he saw GI, Dr. Alvarado, 11/22/18. case discussed with Dr. Alvarado, who reports pt went there to complain of abdominal pain but was sent to the ED after complaints of chest pain. Pt's abdominal pain is chronic as per Dr. Alvarado. Continue to monitor NIDDM2 HgbA1c is 6.8 on 09/2018 Accuchecks ACHS RISS low Hypoglycemia protocol Prior history of multifocal pnuemonia CT chest angio 09/2018 showed pulmonary infiltrates, no evidence of PE. He completed a course of doxycycline PO Hx of PAD/PVD Continue home cilostazol 50 mg PO daily Hx of gastritis Continue home protonix 40 mg PO daily Hx of cervical neuropathy/diabetic neuropathy Continue home duloxetine 60 mg PO BID, gabapentin 100 mg PO BID PPx: GI ppx with protonix 40 mg PO daily VTE ppx with Heparin 5000 sc q12 HHD, CCD (vegetarian) with 1.5L fluid restriction PT/OT eval Patient s/p Cardiac cath 1. L Main: patent 2. LAD Prox 100% 3. L Cx: Mid 100% instent 4. RCA: Mid 100%, Left to Right collaterals 5. AGUERO to LAD patent 6. SVG to OM 80% 7. EF 55%, EDP 20, No 8. Aortogram reveals moderate Aortic insuffiency CAD management JUSTIN to assess Aortic valve SVG graft intervention prior to discharge or as out patient Objective - Vital Signs/Intake and Output Vital Signs (last 24 hours): Temp Pulse Resp BP Pulse Ox 100.5 F H 113 H 20 134/75 97 11/25/18 15:33 11/25/18 15:33 11/25/18 15:33 11/25/18 15:33 11/25/18 15:33 Intake and Output: 11/25/18 11/26/18 18:59 06:59 Output Total 300 Balance -300 - Medications Medications: Current Medications Albuterol/Ipratropium (Duoneb 3 Mg/0.5 Mg (3 Ml) Ud) 3 ml INH RQ6 PRN PRN Reason: Shortness of Breath Aspirin (Ecotrin) 81 mg PO DAILY [facility] Last Admin: 11/25/18 10:07 Dose: 81 mg Cilostazol (Pletal) 50 mg PO BID [facility] Last Admin: 11/25/18 19:28 Dose: 50 mg Dextrose (Dextrose 50% Inj) 0 ml IV STAT PRN; Protocol PRN Reason: Hypoglycemia Protocol Dextrose (Glutose 15) 0 gm PO ONCE PRN; Protocol PRN Reason: Hypoglycemia Protocol Duloxetine HCl (Cymbalta) 60 mg PO DAILY [facility] Last Admin: 11/25/18 10:08 Dose: 60 mg Fluticasone/Vilanterol (Breo Ellipta 100-25 Mcg Inh) 1 puff INH RQD [facility] Last Admin: 11/25/18 10:55 Dose: 1 puff Furosemide (Lasix) 20 mg IVP Q12 [facility] Last Admin: 11/25/18 10:07 Dose: 20 mg Gabapentin (Neurontin) 100 mg PO BID [facility] Last Admin: 11/25/18 19:28 Dose: 100 mg Glucagon (Glucagen Diagnostic Kit) 0 mg IM STAT PRN; Protocol PRN Reason: Hypoglycemia Protocol Heparin Sodium (Porcine) (Heparin) 5,000 units SC Q12 [facility] Last Admin: 11/25/18 10:09 Dose: 5,000 units Dextrose (Dextrose 5% In Water 1000 Ml) 1,000 mls @ 0 mls/hr IV .Q0M PRN; Protocol PRN Reason: Hypoglycemia Protocol Insulin Human Regular (Novolin R) 0 unit SC ACHS [facility]; Protocol Last Admin: 11/25/18 20:15 Dose: 4 unit Losartan Potassium (Cozaar) 25 mg PO DAILY [facility] Last Admin: 11/25/18 10:09 Dose: 25 mg Metoprolol Succinate (Toprol Xl) 12.5 mg PO DAILY [facility] Last Admin: 11/25/18 10:09 Dose: 12.5 mg Pantoprazole Sodium (Protonix Ec Tab) 40 mg PO DAILY [facility] Last Admin: 11/25/18 10:06 Dose: 40 mg Potassium Chloride (K-Dur 20 Meq Er Tab) 20 meq PO DAILY [facility] Rosuvastatin Calcium (Crestor) 10 mg PO HS [facility] Last Admin: 11/24/18 21:35 Dose: 10 mg Senna/Docusate Sodium (Senokot S 50 Mg-8.6 Mg) 1 tab PO DAILY [facility] Last Admin: 11/25/18 10:07 Dose: 1 tab - Labs Labs: 11/25/18 07:02 11/25/18 07:02 PT 14.0 SECONDS (9.7-12.2) H 11/22/18 12:56 INR 1.3 11/22/18 12:56 APTT 38 SECONDS (21-34) H 11/22/18 12:56
[2018-11-26] MEDS: (Novolin R) Insulin Human Regular 100 units/ml vial SC SCH ×5 (07:10→22:44)
--- NOTE | 2018-11-26 07:12 | CP.PCM.PN ---
<Jerry Tavera - Last Filed: 11/26/18 07:09> Subjective - Date & Time of Evaluation Date of Evaluation: 11/26/18 Time of Evaluation: 07:09 - Subjective Subjective: HOSPITALIST SERVICE Pt s/e at bedside, complains of headache, denies any other acute symptoms overnight. denies cp sob fc nv Objective - Vital Signs/Intake and Output Vital Signs (last 24 hours): Temp Pulse Resp BP Pulse Ox 99.7 F H 121 H 20 144/69 95 11/25/18 23:45 11/25/18 23:40 11/25/18 23:40 11/25/18 23:40 11/25/18 23:40 Intake and Output: 11/26/18 11/26/18 06:59 18:59 Intake Total 240 Output Total 700 Balance -460 - Medications Medications: Current Medications Albuterol/Ipratropium (Duoneb 3 Mg/0.5 Mg (3 Ml) Ud) 3 ml INH RQ6 PRN PRN Reason: Shortness of Breath Aspirin (Ecotrin) 81 mg PO DAILY [facility] Last Admin: 11/25/18 10:07 Dose: 81 mg Cilostazol (Pletal) 50 mg PO BID [facility] Last Admin: 11/25/18 19:28 Dose: 50 mg Dextrose (Dextrose 50% Inj) 0 ml IV STAT PRN; Protocol PRN Reason: Hypoglycemia Protocol Dextrose (Glutose 15) 0 gm PO ONCE PRN; Protocol PRN Reason: Hypoglycemia Protocol Duloxetine HCl (Cymbalta) 60 mg PO DAILY [facility] Last Admin: 11/25/18 10:08 Dose: 60 mg Fluticasone/Vilanterol (Breo Ellipta 100-25 Mcg Inh) 1 puff INH RQD [facility] Last Admin: 11/25/18 10:55 Dose: 1 puff Furosemide (Lasix) 20 mg IVP Q12 [facility] Last Admin: 11/25/18 22:19 Dose: 20 mg Gabapentin (Neurontin) 100 mg PO BID [facility] Last Admin: 11/25/18 19:28 Dose: 100 mg Glucagon (Glucagen Diagnostic Kit) 0 mg IM STAT PRN; Protocol PRN Reason: Hypoglycemia Protocol Heparin Sodium (Porcine) (Heparin) 5,000 units SC Q12 [facility] Last Admin: 11/25/18 22:18 Dose: 5,000 units Dextrose (Dextrose 5% In Water 1000 Ml) 1,000 mls @ 0 mls/hr IV .Q0M PRN; P rotocol PRN Reason: Hypoglycemia Protocol Insulin Human Regular (Novolin R) 0 unit SC ACHS [facility]; Protocol Last Admin: 11/25/18 22:31 Dose: Not Given Losartan Potassium (Cozaar) 25 mg PO DAILY [facility] Last Admin: 11/25/18 10:09 Dose: 25 mg Metoprolol Succinate (Toprol Xl) 12.5 mg PO DAILY [facility] Last Admin: 11/25/18 10:09 Dose: 12.5 mg Pantoprazole Sodium (Protonix Ec Tab) 40 mg PO DAILY [facility] Last Admin: 11/25/18 10:06 Dose: 40 mg Potassium Chloride (K-Dur 20 Meq Er Tab) 20 meq PO DAILY [facility] Rosuvastatin Calcium (Crestor) 10 mg PO HS [facility] Last Admin: 11/25/18 22:18 Dose: 10 mg Senna/Docusate Sodium (Senokot S 50 Mg-8.6 Mg) 1 tab PO DAILY [facility] Last Admin: 11/25/18 10:07 Dose: 1 tab - Labs Labs: 11/25/18 07:02 11/25/18 07:02 PT 14.0 SECONDS (9.7-12.2) H 11/22/18 12:56 INR 1.3 11/22/18 12:56 APTT 38 SECONDS (21-34) H 11/22/18 12:56 - Additional Findings Additional findings: - Additional Findings Additional findings: - Constitutional Appears: Non-toxic, No Acute Distress - Head Exam Head Exam: ATRAUMATIC, NORMAL INSPECTION - Eye Exam Eye Exam: EOMI, Normal appearance - ENT Exam ENT Exam: Mucous Membranes Moist - Neck Exam Neck exam: Positive for: Normal Inspection - Respiratory Exam Respiratory Exam: Chest Wall Tenderness (left sternal reproducible pain), Rales (at the bases). absent: Accessory Muscle Use, Decreased Breath Sounds, Rhonchi, Wheezes, Respiratory Distress (no conversational dyspnea), Stridor Additional comments: short expiratory phase - Cardiovascular Exam Cardiovascular Exam: REGULAR RHYTHM, +S1, +S2, +S4 (+S3). absent: Tachycardia - GI/Abdominal Exam GI & Abdominal Exam: Hernia (umbilical hernia), Normal Bowel Sounds, Soft, Tenderness (left upper and left lower quadrant tenderness). absent: Firm, Guarding, Rebound, Rigid - Extremities Exam Extremities exam: Positive for: normal capillary refill, pedal edema (1+ to the midshin, trace from mid barone to knee; right worse than left), pedal pulses present (1+). Negative for: calf tenderness - Back Exam Back exam: NORMAL INSPECTION. absent: CVA tenderness (L), CVA tenderness (R), rash noted, midline tenderness - Neurological Exam Neurological exam: Alert, Oriented x3 - Psychiatric Exam Psychiatric exam: Normal Affect, Normal Mood - Skin Skin Exam: Dry, Normal Color, Warm Assessment and Plan - Assessment and Plan (Free Text) Assessment: Patient is a 58 year old Male with pmhx of CAD with CABG 2003, stent 2010, DM2, PVD, Hyperlipidemia, angina, HTN, gastritis that came to the ED for dyspnea on exertion, chest pain, and abdomen enlargement and pain. For JUSTIN jesusita/ figueroa tmrw AM Plan: Hx of CAD with CABG and stent Myocardial perfusion scan 11/03/2018 shows normal myocardial perfusion test. Small fixed inferior defect. No ischemia. Echo 08/17/2018 shows normal LV, dilated LA. trace to mild AR, TR. Continue ASA 81 mg PO daily, continue Crestor 10 mg PO daily, beta valarie Cardiology, Dr. Yan, consulted. Troponin is 0.0890-->0.1620-->0.1170 Pt is s/p cath this morning, well tolerated. LAD Prox 100% Mid 100% instent Mid 100%, Left to Right collaterals AUGERO to LAD patent SVG to OM 80% EF 55%, EDP 20, No Aortogram reveals moderate Aortic insuffiency Pt to go for JUSTIN on tuesday HFpEF exacerbation, acute on chronic CXR with pulmonary vascular congestion, no infiltrate, s/p CABG. BNP on admission is 3240 Lasix 20 mg IVP q12 Continue home Losartan 25 mg Metoprolol succinate 12.5 mg PO daily will start tomorrow Fluid restriction 1.5L Daily Is and Os Cardiology, Dr. Yan, consulted. Recommendations appreciated. Possible cath tomorrow morning Echo shows EF approximately 62%, moderate aortic regurgitation. Hx of asthma, GASTON Duoneb q6h prn Continue home breo CPAP at 14 cm H2o at night. Will reduce inspiratory pressure tonight. Stressed importance of need for CPAP for GASTON Pulmonology Dr. Akers, consulted. Recommendations appreciated. Abdominal distension with pain Abd CT in 09/2018 shows few scattered colonic diverticuli without evidence of diverticulitis. Patchy B/L lower infiltrates. Umbilical and inguinal hernia with fat. Diffuse constipation. Abd CT angiogram 09/2018 shows diffuse constipation no evidence of ischemia. Sennakot PO daily Abdominal obstructive series shows no evidence of bowel obstruction. Pt reports he saw GI, Dr. Alvarado, 11/22/18. case discussed with Dr. Alvarado, who reports pt went there to complain of abdominal pain but was sent to the ED after complaints of chest pain. Pt's abdominal pain is chronic as per Dr. Alvarado. Continue to monitor NIDDM2 HgbA1c is 6.8 on 09/2018 Accuchecks ACHS RISS low Hypoglycemia protocol Prior history of multifocal pnuemonia CT chest angio 09/2018 showed pulmonary infiltrates, no evidence of PE. He completed a course of doxycycline PO Hx of PAD/PVD Continue home cilostazol 50 mg PO daily Hx of gastritis Continue home protonix 40 mg PO daily Hx of cervical neuropathy/diabetic neuropathy Continue home duloxetine 60 mg PO BID, gabapentin 100 mg PO BID PPx: GI ppx with protonix 40 mg PO daily VTE ppx with Heparin 5000 sc q12 HHD, CCD (vegetarian) with 1.5L fluid restriction PT/OT eval <Erica Stevenson V - Last Filed: 11/26/18 10:21> Subjective - Subjective Subjective: Patient seen this morning with team at 9:30AM. Patient reported mild chest pain and improved shortness of breathe. He did not use CPAP overnight. He ate his sister's food for breakfast. patient reports he had bowel movement over night. With assistance with [employer] medical student third yearin translation in Gujarati, we have explained to the patient at bedside, he is at high risk for heart attack especially in light of his diabetes. We have explained to him that he needs to make dietary changes and use the breathing mchine at night. We have discussed with him the risk of sleep apnea in putting higher risk for stroke and heart attack. We have explained to him that diabetes will reduce his actual feeling of heart attack. We have explained to him that he has significant heart disease so remaining compliant in necessary medications and dietary management. He is aware he is going for JUSTIN tomorrow and possible cardiac cath with Dr. yan. Objective - Vital Signs/Intake and Output Vital Signs (last 24 hours): Temp Pulse Resp BP Pulse Ox 99.2 F 80 20 166/70 H 98 11/26/18 08:39 11/26/18 08:39 11/26/18 08:39 11/26/18 10:10 11/26/18 08:39 Intake and Output: 11/26/18 11/26/18 06:59 18:59 Intake Total 240 Output Total 700 Balance -460 - Medications Medications: Current Medications Acetaminophen (Tylenol 325mg Tab) 650 mg PO Q6 PRN PRN Reason: fever/pain Albuterol/Ipratropium (Duoneb 3 Mg/0.5 Mg (3 Ml) Ud) 3 ml INH RQ6 PRN PRN Reason: Shortness of Breath Aspirin (Ecotrin) 81 mg PO DAILY [facility] Last Admin: 11/26/18 10:09 Dose: 81 mg Cilostazol (Pletal) 50 mg PO BID [facility] Last Admin: 11/26/18 10:11 Dose: 50 mg Dextrose (Dextrose 50% Inj) 0 ml IV STAT PRN; Protocol PRN Reason: Hypoglycemia Protocol Dextrose (Glutose 15) 0 gm PO ONCE PRN; Protocol PRN Reason: Hypoglycemia Protocol Duloxetine HCl (Cymbalta) 60 mg PO DAILY [facility] Last Admin: 11/26/18 10:11 Dose: 60 mg Fluticasone/Vilanterol (Breo Ellipta 100-25 Mcg Inh) 1 puff INH RQD [facility] Last Admin: 11/25/18 10:55 Dose: 1 puff Furosemide (Lasix) 20 mg IVP Q12 [facility] Last Admin: 11/26/18 10:10 Dose: 20 mg Gabapentin (Neurontin) 100 mg PO BID [facility] Last Admin: 11/26/18 10:09 Dose: 100 mg Glucagon (Glucagen Diagnostic Kit) 0 mg IM STAT PRN; Protocol PRN Reason: Hypoglycemia Protocol Heparin Sodium (Porcine) (Heparin) 5,000 units SC Q12 [facility] Last Admin: 11/26/18 10:09 Dose: 5,000 units Dextrose (Dextrose 5% In Water 1000 Ml) 1,000 mls @ 0 mls/hr IV .Q0M PRN; Protocol PRN Reason: Hypoglycemia Protocol Insulin Human Regular (Novolin R) 0 unit SC ACHS [facility]; Protocol Last Admin: 11/26/18 07:10 Dose: Not Given Losartan Potassium (Cozaar) 25 mg PO DAILY [facility] Last Admin: 11/26/18 10:09 Dose: 25 mg Metoprolol Succinate (Toprol Xl) 12.5 mg PO DAILY [facility] Last Admin: 11/26/18 10:10 Dose: 12.5 mg Pantoprazole Sodium (Protonix Ec Tab) 40 mg PO DAILY [facility] Last Admin: 11/26/18 10:09 Dose: 40 mg Potassium Chloride (K-Dur 20 Meq Er Tab) 20 meq PO DAILY [facility] Last Admin: 11/26/18 10:09 Dose: 20 meq Rosuvastatin Calcium (Crestor) 10 mg PO HS [facility] Last Admin: 11/25/18 22:18 Dose: 10 mg Senna/Docusate Sodium (Senokot S 50 Mg-8.6 Mg) 1 tab PO DAILY [facility] Last Admin: 11/26/18 10:09 Dose: 1 tab - Labs Labs: 11/26/18 08:36 11/26/18 08:36 PT 14.0 SECONDS (9.7-12.2) H 11/22/18 12:56 INR 1.3 11/22/18 12:56 APTT 38 SECONDS (21-34) H 11/22/18 12:56 - Constitutional Appears: Non-toxic, No Acute Distress - Head Exam Head Exam: NORMAL INSPECTION - Eye Exam Eye Exam: EOMI - ENT Exam ENT Exam: Mucous Membranes Moist - Respiratory Exam Respiratory Exam: Decreased Breath Sounds, Rales (trace bilateral rales), NORMAL BREATHING PATTERN. absent: Rhonchi, Wheezes, Stridor - Cardiovascular Exam Cardiovascular Exam: REGULAR RHYTHM, +S1, +S2, +S4 - GI/Abdominal Exam GI & Abdominal Exam: Distended (obese habitus), Soft, Normal Bowel Sounds. absent: Firm, Guarding, Rigid, Tenderness, Rebound - Extremities Exam Extremities Exam: Pedal Edema (trace; improved). absent: Tenderness - Neurological Exam Neurological Exam: Alert, Awake, Oriented x3 - Psychiatric Exam Psychiatric exam: Normal Affect, Normal Mood - Skin Skin Exam: Dry, Intact, Normal Color, Warm Attending/Attestation - Attestation I have personally seen and examined this patient.: Yes I have fully participated in the care of the patient.: Yes I have reviewed all pertinent clinical information, including history, physical exam and plan: Yes Notes (Text): Patient seen, examined, and case discussed with day-time resident. Patient remains noncompliant on his CPAP and diet as noted in my subjective and we have explained to him why it is medically necessary Patient's edema over left/right lower extremities are close to resolved. Awaiting official report of venous dopplers. Patient reports cough, nonproductive and associated mild chest pain but is presently stable and comfortable. Patient is scheduled for JUSTIN at 9am with Dr. Almeida to evaluate aortic regur gitation prior to further evaluation by Dr. Yan of patient's severe coronary disease. Assessment/Plan 1. Chest pain secondary to acute on chronic CHF exacerbation, severe coronary artery disease, possible aortic regurgitation Nonstemi Assessment/Plan * changed to inpatient for workup in light of cath findings * Cardiology (Dr. Yan) on consult help appreciated * Pt has significant cardiac risk factors including history of CABG, CHF, GASTON, DM, CAD, DM * Pt received ASA 325 mg PO in the ED * Positive Troponin prompting cardiac cath 11/24/18 * elevated probnp * improving * Aspirin 81mg po daily * Lasix 20mg IV Q12H * Toprol 12.5mg PO daily * Cozaar 25mg PO daily * Crestor 10mg PoqHS * Echo (08/25): normal V systolic function, dilated LA, trace to mild AR, and trace to mild TR * Myocardial Stress (11/03/18); small fixed inferior defect. No stress induced ischemia. Normal EF. * Chest xray (11/22/18): no active disease. no significant interval change compared ot the prior examination * Cath (11/24/18); coronary Artery disease, Recommend JUSTIN, recommend saphenous vein graft to circumflex intervention as an inpatient or after discharge * Patient s/p Cardiac cath * 1. L Main: patent * 2. LAD Prox 100% * 3. L Cx: Mid 100% instent * 4. RCA: Mid 100%, Left to Right collaterals * 5. AGUERO to LAD patent * 6. SVG to OM 80% * 7. EF 55%, EDP 20, No * 8. Aortogram reveals moderate Aortic insuffiency Per cardiology, CAD management JUSTIN to assess Aortic valve SVG graft intervention prior to discharge or as out patient * Echocardiogram (11/23/18): normal left ventricular systolic function. moderate aortic regurgitation * Scheduled for JUSTIN at 9am [address] Dr[address] Almeida to evaluate aortic regurgitation prior to further evaluation by Dr. Yan of patient's severe coronary disease on Tuesday11/27/18. 2. HFpEF exacerbation, acute on chronic Assessment/Plan * Cardiology (Dr. Yan) on consult help appreciated * Pt has significant cardiac risk factors including history of CABG, CHF, GASTON, DM, CAD, DM * Troponin x1 is negative, will trend q6h x2 with EKGs * Pt received ASA 325 mg PO in the ED * elevated probnp * Aspirin 81mg po daily * Lasix 20mg IV Q12H * Toprol 12.5mg PO daily * Cozaar 25mg PO daily * Crestor 10mg PoqHS * Echo (08/25): normal V systolic function, dilated LA, trace to mild AR, and trace to mild TR * Myocardial Stress (11/03/18); small fixed inferior defect. No stress induced ischemia. Normal EF. * Chest xray (11/22/18): no active disease. no significant interval change compared ot the prior examination * Cath (11/24/18); coronary Artery disease, Recommend JUSTIN, recommend saphenous vein graft to circumflex intervention as an inpatient or after discharge * Echocardiogram (11/23/18): normal left ventricular systolic function. moderate aortic regurgitation * Scheduled for JUSTIN at 9am [address] Dr[address] Almeida to evaluate aortic regurgitation prior to further evaluation by Dr. Yan of patient's severe coronary disease on Tuesday11/27/18. * Fluid restriction * Daily Weight 3. Hx of asthma,, history ofOSA Assessment/Plan * Pulm Dr. Akers, consulted. Recommendations appreciated. * patient recommended to using autopap; does not use it; discussed with pulm noted noncompliance * Duoneb q6h prn * Breo Ellipta 1p uff inhaled RQDaily * CPAP at 10 cm H2o at night * Patient noted noncompliance while in the hospitalization inspite of education 4. Abdominal distension with pain History of Gastritis Small hiatus hernia Assessment/Plan * Patient had visited his GI this morning day of admission; attempted to call awaiting call back * prior hospitalization: * Abd CT in 09/2018 shows few scattered colonic diverticuli without evidence of diverticulitis. Patchy B/L lower infiltrates. Umbilical and inguinal hernia with fat. Diffuse constipation. * Abd CT angiogram 09/2018 shows diffuse constipation no evidence of ischemia. * Sennakot PO daily * Obstructive series: unremarkable radiographs of chest and abdomen. No evidence of mechanical bowel obstruction * Prior EGD (11/2016) available in the EMR * Resident has spoken with Dr. Mcgrath; does not recommend mesalamine to be restarted 5. Hx of CAD with CABG and stent Assessment/Plan * Cardiology (Dr. Yan) on consult help appreciated * Aspirin 81mg po daily * Lasix 20mg IV Q12H * Toprol 12.5mg PO daily * Cozaar 25mg PO daily * Crestor 10mg PoqHS * Myocardial perfusion scan 11/03/2018 shows normal myocardial perfusion test. Small fixed inferior defect. No ischemia. * Echo 08/17/2016 shows normal LV, dilated LA. trace to mild AR, TR. * Cath (11/24/18); coronary Artery disease, Recommend JUSTIN, recommend saphenous vein graft to circumflex intervention as an inpatient or after discharge * Echocardiogram (11/23/18): normal left ventricular systolic function. moderate aortic regurgitation * Scheduled for JUSTIN at [address]am [address] Dr[address] Almeida to evaluate aortic regurgitation prior to further evaluation by Dr. Yan of patient's severe coronary disease on Tuesday11/27/18. 6. NIDDM2 Assessment/Plan * HgbA1c is 6.8 on 09/2018 * Accuchecks ACHS * RISS low * Hypoglycemia protocol * Aspirin 81mg po daily * Crestor 10mg PoqHS * Re-emphasized dietary changes 7. Prior history of multifocal pneumonia Assessment/Plan * Recent hospitalization * CT chest angio 09/2018 showed pulmonary infiltrates, no evidence of PE. * He completed a course of doxycycline upon discharge * Afebrile, no white count 8. Hx of PAD/PVD Assessment/Plan * Continue home cilostazol 50mg PO BID * Continue ASA 81mg Po daily 9. Hx of gastritis Assessment/Plan * Continue home protonix 40 mg PO daily 9. Hx of cervical neuropathy/diabetic neuropathy Assessment/Plan * Continue home duloxetine 60 mg PO BID, gabapentin 100 mg PO BID 10. Leg edema Assessment/Plan * attributed to chf exacerbation * venous doppler (leg) ordered pending * improving 11. PPx: * GI ppx with protonix 40 mg PO daily * VTE ppx with Heparin 5000 sc q12 * HHD, CCD with 1.5L fluid restriction * PT/OT eval * monitor telemetry * changed to inpatient Disposition: * Scheduled for JUSTIN at 9am [address] Dr[address] Almeida to evaluate aortic regurgitation prior to further evaluation by Dr. Yan of patient's severe coronary disease on Tuesday11/27/18.
[2018-11-26 08:45] LABS: BASO % 0.5 % (0.0-2.0); HEMOGLOBIN 11.3 g/dL (12.0-18.0); LYMPH # 0.9 K/uL (1.0-4.3); LYMPH % 13.8 % (20.0-40.0); MEAN CELL VOLUME 77.3 fL (80.0-94.0); MEAN CORPUSCULAR HEMOGLOBIN 24.6 pg (27.0-31.0); MEAN CORPUSCULAR HGB CONC 31.8 g/dL (33.0-37.0); MEAN PLATELET VOLUME 8.5 fL (7.2-11.7); MONO # 1.5 K/uL (0.0-0.8); MONO % 23.7 % (0.0-10.0); NEUT # 3.8 K/uL (1.8-7.0); NRBC % 0.1 % (0.0-2.0); PLATELET COUNT 188 K/uL (130-400); RBC 4.59 Mil/uL (4.40-5.90); RED CELL DISTRIBUTION WIDTH 17.4 % (11.5-14.5); WHITE BLOOD COUNT 6.2 K/uL (4.8-10.8)
[2018-11-26 09:20] LABS: ALB/GLOB RATIO 1.2 (1.0-2.1); ALBUMIN 3.8 g/dL (3.5-5.0); ALT/SGPT 27 U/L (21-72); AST/SGOT 49 U/L (17-59); BLOOD UREA NITROGEN 25 mg/dL (9-20); CALCIUM 9.1 mg/dl (8.6-10.4); GFR NON-AFRICAN AMERICAN > 60
[2018-11-26 09:22] LABS: LYMPHOCYTE 7 % (20-40); MONOCYTE 27 % (0-10); NEUTROPHIL 66 % (50-75); PLATELET ESTIMATE NORMAL (NORMAL); TOTAL CELLS COUNTED 100
[2018-11-26 09:23] LABS: ANISOCYTOSIS MODERATE; HYPOCHROMIC SLIGHT; MICROCYTOSIS SLIGHT; POLYCHROMIC SLIGHT
[2018-11-26 09:24] LABS: GIANT PLATELETS PRESENT; LARGE PLATELETS PRESENT
[2018-11-26] MEDS: Docusate-Senna 50 mg-8.6 mg Tab PO SCH (10:09)
[2018-11-26] MEDS: Potassium Chloride 20 mEq ER Tab PO SCH (10:09)
[2018-11-26] MEDS: Pantoprazole 40 mg EC Tab PO SCH (10:09)
[2018-11-26] MEDS: Metoprolol Succinate 12.5 mg XL Tab PO SCH (10:10)
[2018-11-26] MEDS: Cilostazol 50 mg Tab UD PO SCH ×2 (10:11→18:22)
[2018-11-26 11:57] LABS: URINE BILIRUBIN NEGATIVE (NEGATIVE); URINE BLOOD NEGATIVE (NEGATIVE); URINE CLARITY Clear (Clear); URINE COLOR Yellow (YELLOW); URINE GLUCOSE (UA) 3+ mg/dL (Normal); URINE HYALINE CAST 0-2 /lpf (0-2); URINE LEUKOCYTE ESTERASE NEG Leu/uL (Negative); URINE PROTEIN NEGATIVE (NEGATIVE); URINE UROBILINOGEN NORMAL mg/dL (0.2-1.0)
--- NOTE | 2018-11-26 13:36 | RAD ---
Date of service: 11/26/2018 HISTORY: r/o infiltrate COMPARISON: Comparison is made with 11/22/2018 FINDINGS: LUNGS: Mild pulmonary vascular congestion is noted. PLEURA: Blunting of the right costophrenic angle suggestive of small pleural effusion. CARDIOVASCULAR: Small atherosclerotic calcification noted. The cardiac silhouette is enlarged. Mild pulmonary vascular congestion. Post sternotomy changes and post cardiac surgery changes are noted P OSSEOUS STRUCTURES: No significant abnormalities. VISUALIZED UPPER ABDOMEN: Normal. OTHER FINDINGS: None. IMPRESSION: Cardiomegaly and mild pulmonary vascular congestion.
--- NOTE | 2018-11-26 13:38 | CP.PCM.PN ---
Subjective - Date & Time of Evaluation Date of Evaluation: 11/26/18 Time of Evaluation: 13:37 - Subjective Subjective: Pt is seen and examined No events overnight Objective - Vital Signs/Intake and Output Vital Signs (last 24 hours): Temp Pulse Resp BP Pulse Ox 99.2 F 80 20 166/70 H 98 11/26/18 08:39 11/26/18 08:39 11/26/18 08:39 11/26/18 10:10 11/26/18 08:39 Intake and Output: 11/26/18 11/26/18 06:59 18:59 Intake Total 240 Output Total 700 Balance -460 - Medications Medications: Current Medications Acetaminophen (Tylenol 325mg Tab) 650 mg PO Q6 PRN PRN Reason: fever/pain Albuterol/Ipratropium (Duoneb 3 Mg/0.5 Mg (3 Ml) Ud) 3 ml INH RQ6 PRN PRN Reason: Shortness of Breath Aspirin (Ecotrin) 81 mg PO DAILY [facility] Last Admin: 11/26/18 10:09 Dose: 81 mg Cilostazol (Pletal) 50 mg PO BID [facility] Last Admin: 11/26/18 10:11 Dose: 50 mg Dextrose (Dextrose 50% Inj) 0 ml IV STAT PRN; Protocol PRN Reason: Hypoglycemia Protocol Dextrose (Glutose 15) 0 gm PO ONCE PRN; Protocol PRN Reason: Hypoglycemia Protocol Duloxetine HCl (Cymbalta) 60 mg PO DAILY [facility] Last Admin: 11/26/18 10:11 Dose: 60 mg Fluticasone/Vilanterol (Breo Ellipta 100-25 Mcg Inh) 1 puff INH RQD [facility] Last Admin: 11/25/18 10:55 Dose: 1 puff Furosemide (Lasix) 20 mg IVP Q12 [facility] Last Admin: 11/26/18 10:10 Dose: 20 mg Gabapentin (Neurontin) 100 mg PO BID [facility] Last Admin: 11/26/18 10:09 Dose: 100 mg Glucagon (Glucagen Diagnostic Kit) 0 mg IM STAT PRN; Protocol PRN Reason: Hypoglycemia Protocol Heparin Sodium (Porcine) (Heparin) 5,000 units SC Q12 [facility] Last Admin: 11/26/18 10:09 Dose: 5,000 units Dextrose (Dextrose 5% In Water 1000 Ml) 1,000 mls @ 0 mls/hr IV .Q0M PRN; Protocol PRN Reason: Hypoglycemia Protocol Insulin Human Regular (Novolin R) 0 unit SC ACHS [facility]; Protocol Last Admin: 11/26/18 12:40 Dose: 2 unit Losartan Potassium (Cozaar) 25 mg PO DAILY [facility] Last Admin: 11/26/18 10:09 Dose: 25 mg Metoprolol Succinate (Toprol Xl) 12.5 mg PO DAILY [facility] Last Admin: 11/26/18 10:10 Dose: 12.5 mg Pantoprazole Sodium (Protonix Ec Tab) 40 mg PO DAILY [facility] Last Admin: 11/26/18 10:09 Dose: 40 mg Potassium Chloride (K-Dur 20 Meq Er Tab) 20 meq PO DAILY [facility] Last Admin: 11/26/18 10:09 Dose: 20 meq Rosuvastatin Calcium (Crestor) 10 mg PO HS [facility] Last Admin: 11/25/18 22:18 Dose: 10 mg Senna/Docusate Sodium (Senokot S 50 Mg-8.6 Mg) 1 tab PO DAILY [facility] Last Admin: 11/26/18 10:09 Dose: 1 tab - Labs Labs: 11/26/18 08:36 11/26/18 08:36 PT 14.0 SECONDS (9.7-12.2) H 11/22/18 12:56 INR 1.3 11/22/18 12:56 APTT 38 SECONDS (21-34) H 11/22/18 12:56 - Head Exam Head Exam: NORMAL INSPECTION - Eye Exam Eye Exam: Normal appearance - ENT Exam ENT Exam: Mucous Membranes Moist - Respiratory Exam Respiratory Exam: Clear to Ausculation Bilateral - Cardiovascular Exam Cardiovascular Exam: REGULAR RHYTHM, +S1, +S2 - GI/Abdominal Exam GI & Abdominal Exam: Soft, Normal Bowel Sounds - Extremities Exam Extremities Exam: Normal Inspection - Neurological Exam Neurological Exam: Alert, Oriented x3 Assessment and Plan (1) Obstructive sleep apnea (adult) (pediatric) Status: Acute (2) Asthma Status: Acute (3) CHF (congestive heart failure) Status: Acute - Assessment and Plan (Free Text) Plan: Stephanieo Nkechi Torres Awaiting JUSTIN CPAP at night Lasix DVT/GI prophalaxis
--- NOTE | 2018-11-26 20:43 | CP.PCM.PN ---
Subjective - Date & Time of Evaluation Date of Evaluation: 11/26/18 Time of Evaluation: 15:10 - Subjective Subjective: Patient had episode of fever No cardiac events noted Physical examination - Additional Findings Additional findings: - Constitutional Appears: Non-toxic, No Acute Distress - Head Exam Head Exam: ATRAUMATIC, NORMAL INSPECTION - Eye Exam Eye Exam: EOMI, Normal appearance - ENT Exam ENT Exam: Mucous Membranes Moist - Neck Exam Neck exam: Positive for: Normal Inspection - Respiratory Exam Respiratory Exam: Chest Wall Tenderness (left sternal reproducible pain), Rales (at the bases). absent: Accessory Muscle Use, Decreased Breath Sounds, Rhonchi, Wheezes, Respiratory Distress (no conversational dyspnea), Stridor Additional comments: short expiratory phase - Cardiovascular Exam Cardiovascular Exam: REGULAR RHYTHM, +S1, +S2, +S4 (+S3). absent: Tachycardia - GI/Abdominal Exam GI & Abdominal Exam: Distended (ascites), Hernia (umbilical hernia), Normal Bowel Sounds, Soft, Tenderness (left upper and left lower quadrant tenderness). absent: Firm, Guarding, Rebound, Rigid - Extremities Exam Extremities exam: Positive for: normal capillary refill, pedal edema (1+ to the midshin, trace from mid barone to knee; right worse than left), pedal pulses present (1+). Negative for: calf tenderness - Back Exam Back exam: NORMAL INSPECTION. absent: CVA tenderness (L), CVA tenderness (R), rash noted, midline tenderness - Neurological Exam Neurological exam: Alert, Oriented x3 - Psychiatric Exam Psychiatric exam: Normal Affect, Normal Mood - Skin Skin Exam: Dry, Normal Color, Warm Assessment and Plan - Assessment and Plan (Free Text) Assessment: Patient is a 58 year old Singaporean Male with pmhx of CAD with CABG 2003, stent 2010, DM2, PVD, Hyperlipidemia, angina, HTN, gastritis that came to the ED for dyspnea on exertion, chest pain, and abdomen enlargement and pain. Plan: Hx of CAD with CABG and stent Myocardial perfusion scan 11/03/2018 shows normal myocardial perfusion test. Small fixed inferior defect. No ischemia. Echo 08/17/2018 shows normal LV, dilated LA. trace to mild AR, TR. Continue ASA 81 mg PO daily, continue Crestor 10 mg PO daily, beta valarie Troponin is 0.0890-->0.1620-->0.1170 Pt is s/p cath this morning, well tolerated. LAD Prox 100% Mid 100% instent Mid 100%, Left to Right collaterals AGUERO to LAD patent SVG to OM 80% EF 55%, EDP 20, No Aortogram reveals moderate Aortic insuffiency Pt to go for JUSTIN on tuesday HFpEF exacerbation, acute on chronic CXR with pulmonary vascular congestion, no infiltrate, s/p CABG. BNP on admission is 3240 Lasix 20 mg IVP q12 Continue home Losartan 25 mg Metoprolol succinate 12.5 mg PO daily will start tomorrow Fluid restriction 1.5L Daily Is and Os Echo shows EF approximately 62%, moderate aortic regurgitation. Hx of asthma, GASTON Duoneb q6h prn Continue home breo CPAP at 14 cm H2o at night. Will reduce inspiratory pressure tonight. Stressed importance of need for CPAP for GASTON Pulmonology Dr. Akers, consulted. Recommendations appreciated. Abdominal distension with pain Abd CT in 09/2018 shows few scattered colonic diverticuli without evidence of diverticulitis. Patchy B/L lower infiltrates. Umbilical and inguinal hernia with fat. Diffuse constipation. Abd CT angiogram 09/2018 shows diffuse constipation no evidence of ischemia. Sennakot PO daily Abdominal obstructive series shows no evidence of bowel obstruction. Pt reports he saw GI, Dr. Alvarado, 11/22/18. case discussed with Dr. Alvarado, who reports pt went there to complain of abdominal pain but was sent to the ED after complaints of chest pain. Pt's abdominal pain is chronic as per Dr. Alvarado. Continue to monitor NIDDM2 HgbA1c is 6.8 on 09/2018 Accuchecks ACHS RISS low Hypoglycemia protocol Prior history of multifocal pnuemonia CT chest angio 09/2018 showed pulmonary infiltrates, no evidence of PE. He completed a course of doxycycline PO Hx of PAD/PVD Continue home cilostazol 50 mg PO daily Hx of gastritis Continue home protonix 40 mg PO daily Hx of cervical neuropathy/diabetic neuropathy Continue home duloxetine 60 mg PO BID, gabapentin 100 mg PO BID PPx: GI ppx with protonix 40 mg PO daily VTE ppx with Heparin 5000 sc q12 HHD, CCD (vegetarian) with 1.5L fluid restriction PT/OT eval Patient s/p Cardiac cath 1. L Main: patent 2. LAD Prox 100% 3. L Cx: Mid 100% instent 4. RCA: Mid 100%, Left to Right collaterals 5. AGUERO to LAD patent 6. SVG to OM 80% 7. EF 55%, EDP 20, No 8. Aortogram reveals moderate Aortic insuffiency CAD management JUSTIN to assess Aortic valve SVG graft intervention prior to discharge or as out patient Objective - Vital Signs/Intake and Output Vital Signs (last 24 hours): Temp Pulse Resp BP Pulse Ox 99.1 F 102 H 20 102/63 96 11/26/18 15:00 11/26/18 15:00 11/26/18 15:00 11/26/18 15:00 11/26/18 15:00 - Medications Medications: Current Medications Acetaminophen (Tylenol 325mg Tab) 650 mg PO Q6 PRN PRN Reason: fever/pain Albuterol/Ipratropium (Duoneb 3 Mg/0.5 Mg (3 Ml) Ud) 3 ml INH RQ6 PRN PRN Reason: Shortness of Breath Aspirin (Ecotrin) 81 mg PO DAILY [facility] Last Admin: 11/26/18 10:09 Dose: 81 mg Cilostazol (Pletal) 50 mg PO BID [facility] Last Admin: 11/26/18 18:22 Dose: 50 mg Dextrose (Dextrose 50% Inj) 0 ml IV STAT PRN; Protocol PRN Reason: Hypoglycemia Protocol Dextrose (Glutose 15) 0 gm PO ONCE PRN; Protocol PRN Reason: Hypoglycemia Protocol Duloxetine HCl (Cymbalta) 60 mg PO DAILY [facility] Last Admin: 11/26/18 10:11 Dose: 60 mg Fluticasone/Vilanterol (Breo Ellipta 100-25 Mcg Inh) 1 puff INH RQD [facility] Last Admin: 11/25/18 10:55 Dose: 1 puff Furosemide (Lasix) 20 mg IVP Q12 [facility] Last Admin: 11/26/18 10:10 Dose: 20 mg Gabapentin (Neurontin) 100 mg PO BID [facility] Last Admin: 11/26/18 18:22 Dose: 100 mg Glucagon (Glucagen Diagnostic Kit) 0 mg IM STAT PRN; Protocol PRN Reason: Hypoglycemia Protocol Heparin Sodium (Porcine) (Heparin) 5,000 units SC Q12 [facility] Last Admin: 11/26/18 10:09 Dose: 5,000 units Dextrose (Dextrose 5% In Water 1000 Ml) 1,000 mls @ 0 mls/hr IV .Q0M PRN; Protocol PRN Reason: Hypoglycemia Protocol Insulin Human Regular (Novolin R) 0 unit SC ACHS [facility]; Protocol Last Admin: 11/26/18 18:22 Dose: 2 unit Losartan Potassium (Cozaar) 25 mg PO DAILY [facility] Last Admin: 11/26/18 10:09 Dose: 25 mg Metoprolol Succinate (Toprol Xl) 12.5 mg PO DAILY [facility] Last Admin: 11/26/18 10:10 Dose: 12.5 mg Pantoprazole Sodium (Protonix Ec Tab) 40 mg PO DAILY [facility] Last Admin: 11/26/18 10:09 Dose: 40 mg Potassium Chloride (K-Dur 20 Meq Er Tab) 20 meq PO DAILY [facility] Last Admin: 11/26/18 10:09 Dose: 20 meq Rosuvastatin Calcium (Crestor) 10 mg PO HS [facility] Last Admin: 11/25/18 22:18 Dose: 10 mg Senna/Docusate Sodium (Senokot S 50 Mg-8.6 Mg) 1 tab PO DAILY [facility] Last Admin: 11/26/18 10:09 Dose: 1 tab - Labs Labs: 11/26/18 08:36 11/26/18 08:36 PT 14.0 SECONDS (9.7-12.2) H 11/22/18 12:56 INR 1.3 11/22/18 12:56 APTT 38 SECONDS (21-34) H 11/22/18 12:56
--- NOTE | 2018-11-27 07:54 | CP.PCM.PN ---
<Arvind Zuluaga - Last Filed: 11/27/18 16:14> Subjective - Date & Time of Evaluation Date of Evaluation: 11/27/18 Time of Evaluation: 14:42 - Subjective Subjective: PGY1 Medicine progress note for Dr. Mckenzie Pt was seen and examined at bedside. Pt is resting comfortably. He reports continued chronic left sided abdominal pain. Otherwise, he has no complaints. Denies fever, chills, chest pain, palpitations, headache, dizziness, lightheadedness, vision changes, n/v. He is s/p JUSTIN this morning. Objective - Vital Signs/Intake and Output Vital Signs (last 24 hours): Temp Pulse Resp BP Pulse Ox 98.7 F 109 H 20 110/70 96 11/26/18 23:32 11/26/18 23:32 11/26/18 23:32 11/26/18 23:32 11/26/18 23:32 - Medications Medications: Current Medications Acetaminophen (Tylenol 325mg Tab) 650 mg PO Q6 PRN PRN Reason: fever/pain Albuterol/Ipratropium (Duoneb 3 Mg/0.5 Mg (3 Ml) Ud) 3 ml INH RQ6 PRN PRN Reason: Shortness of Breath Aspirin (Ecotrin) 81 mg PO DAILY [facility] Last Admin: 11/26/18 10:09 Dose: 81 mg Cilostazol (Pletal) 50 mg PO BID [facility] Last Admin: 11/26/18 18:22 Dose: 50 mg Dextrose (Dextrose 50% Inj) 0 ml IV STAT PRN; Protocol PRN Reason: Hypoglycemia Protocol Dextrose (Glutose 15) 0 gm PO ONCE PRN; Protocol PRN Reason: Hypoglycemia Protocol Duloxetine HCl (Cymbalta) 60 mg PO DAILY [facility] Last Admin: 11/26/18 10:11 Dose: 60 mg Fluticasone/Vilanterol (Breo Ellipta 100-25 Mcg Inh) 1 puff INH RQD [facility] Last Admin: 11/25/18 10:55 Dose: 1 puff Furosemide (Lasix) 20 mg IVP Q12 [facility] Last Admin: 11/26/18 22:43 Dose: 20 mg Gabapentin (Neurontin) 100 mg PO BID [facility] Last Admin: 11/26/18 18:22 Dose: 100 mg Glucagon (Glucagen Diagnostic Kit) 0 mg IM STAT PRN; Protocol PRN Reason: Hypoglycemia Protocol Heparin Sodium (Porcine) (Heparin) 5,000 units SC Q12 [facility] Last Admin: 11/26/18 22:43 Dose: 5,000 units Dextrose (Dextrose 5% In Water 1000 Ml) 1,000 mls @ 0 mls/hr IV .Q0M PRN; Protocol PRN Reason: Hypoglycemia Protocol Insulin Human Regular (Novolin R) 0 unit SC ACHS [facility]; Protocol Last Admin: 11/26/18 22:44 Dose: Not Given Losartan Potassium (Cozaar) 25 mg PO DAILY [facility] Last Admin: 11/26/18 10:09 Dose: 25 mg Metoprolol Succinate (Toprol Xl) 12.5 mg PO DAILY [facility] Last Admin: 11/26/18 10:10 Dose: 12.5 mg Pantoprazole Sodium (Protonix Ec Tab) 40 mg PO DAILY [facility] Last Admin: 11/26/18 10:09 Dose: 40 mg Potassium Chloride (K-Dur 20 Meq Er Tab) 20 meq PO DAILY [facility] Last Admin: 11/26/18 10:09 Dose: 20 meq Rosuvastatin Calcium (Crestor) 10 mg PO HS [facility] Last Admin: 11/26/18 22:43 Dose: 10 mg Senna/Docusate Sodium (Senokot S 50 Mg-8.6 Mg) 1 tab PO DAILY [facility] Last Admin: 11/26/18 10:09 Dose: 1 tab - Labs Labs: 11/26/18 08:36 11/26/18 08:36 PT 14.0 SECONDS (9.7-12.2) H 11/22/18 12:56 INR 1.3 11/22/18 12:56 APTT 38 SECONDS (21-34) H 11/22/18 12:56 - Additional Findings Additional findings: - Constitutional Appears: Non-toxic, No Acute Distress - Head Exam Head Exam: ATRAUMATIC, NORMAL INSPECTION - Eye Exam Eye Exam: EOMI, Normal appearance - ENT Exam ENT Exam: Mucous Membranes Moist - Neck Exam Neck exam: Positive for: Normal Inspection - Respiratory Exam Respiratory Exam: Minimal Rales (at the bases). absent: Accessory Muscle Use, Decreased Breath Sounds, Rhonchi, Wheezes, Respiratory Distress (no conversational dyspnea), Stridor Additional comments: short expiratory phase - Cardiovascular Exam Cardiovascular Exam: REGULAR RHYTHM, +S1, +S2, +S4 (+S3). absent: Tachycardia - GI/Abdominal Exam GI & Abdominal Exam: Hernia (umbilical hernia), Normal Bowel Sounds, Soft, Tenderness (minimal left sided abdominal tenderness). absent: distension, Firm, Guarding, Rebound, Rigid - Extremities Exam Extremities exam: Positive for: normal capillary refill, pedal pulses present (1+). Negative for: edema, calf tenderness - Back Exam Back exam: NORMAL INSPECTION. absent: CVA tenderness (L), CVA tenderness (R), rash noted, midline tenderness - Neurological Exam Neurological exam: Alert, Oriented x3 - Psychiatric Exam Psychiatric exam: Normal Affect, Normal Mood - Skin Skin Exam: Dry, Normal Color, Warm Assessment and Plan - Assessment and Plan (Free Text) Assessment: Patient is a 58 year old [place] Male with pmhx of CAD with CABG 2003, stent 2010, DM2, PVD, Hyperlipidemia, angina, HTN, gastritis that came to the ED for dyspnea on exertion, chest pain, and abdomen enlargement and pain. Noted to be in CHF exacerbation, NSTEMI. 1. Chest pain secondary to acute on chronic CHF exacerbation, severe coronary artery disease, aortic regurgitation NSTEMI Assessment/Plan * changed to inpatient for workup in light of cath findings * Cardiology (Dr. Yan) on consult help appreciated * Pt will undergo PCI tomorrow morning [place] [facility] [place] 80% of OM * Pt has significant cardiac risk factors including history of CABG, CHF, GASTON, DM, CAD, DM * Pt received ASA 325 mg PO in the ED on admission * troponin 0.0890-->0.1620-->0.1170 * Positive Troponin prompting cardiac cath 11/24/18 * elevated probnp * improving * Aspirin 81mg po daily * Lasix 20mg IV Q12H * Toprol 12.5mg PO daily * Cozaar 25mg PO daily * Crestor 10mg PoqHS * Echo (08/25): normal V systolic function, dilated LA, trace to mild AR, and trace to mild TR * Myocardial Stress (11/03/18); small fixed inferior defect. No stress induced ischemia. Normal EF. * Chest xray (11/22/18): no active disease. no significant interval change compared ot the prior examination * Cath (11/24/18); coronary Artery disease, Recommend JUSTIN, recommend saphenous vein graft to circumflex intervention as an inpatient or after discharge * Patient s/p Cardiac cath * 1. L Main: patent * 2. LAD Prox 100% * 3. L Cx: Mid 100% instent * 4. RCA: Mid 100%, Left to Right collaterals * 5. AGUERO to LAD patent * 6. SVG to OM 80% * 7. EF 55%, EDP 20, No * 8. Aortogram reveals moderate Aortic insuffiency Per cardiology, CAD management SVG graft intervention tomorrow [place] [facility] [place] by [place]. Yan * Echocardiogram (11/23/18): normal left ventricular systolic function. moderate aortic regurgitation * JUSTIN this morning with Dr. Almeida shows aortic regurgitation * Dr. Yan aware of results. F/u full report 2. HFpEF exacerbation, acute on chronic Assessment/Plan * Cardiology (Dr. Yan) on consult help appreciated * Pt has significant cardiac risk factors including history of CABG, CHF, GASTON, DM, CAD, DM * Pt received ASA 325 mg PO in the ED * elevated probnp * Aspirin 81mg po daily * Lasix 20mg IV Q12H * Toprol 12.5mg PO daily * Cozaar 25mg PO daily * Crestor 10mg PO qHS * Echo (08/25): normal V systolic function, dilated LA, trace to mild AR, and trace to mild TR * Myocardial Stress (11/03/18); small fixed inferior defect. No stress induced ischemia. Normal EF. * Chest xray (11/22/18): no active disease. no significant interval change compared ot the prior examination * Cath (11/24/18); coronary Artery disease, Recommend JUSTIN, recommend saphenous vein graft to circumflex intervention as an inpatient or after discharge * Echocardiogram (11/23/18): normal left ventricular systolic function. moderate aortic regurgitation * Fluid restriction * Daily Weight 3. Hx of asthma,, history ofOSA Assessment/Plan * Pulm Dr. Akers, consulted. Recommendations appreciated. * patient recommended to using autopap; does not use it; discussed with pulm noted noncompliance * Duoneb q6h prn * Breo Ellipta 1p uff inhaled RQDaily * CPAP at 10 cm H2o at night, pt is noncompliant, but we will continue to educate and attempt to have pt use at night. 4. Abdominal distension with pain History of Gastritis Small hiatus hernia Assessment/Plan * Patient had visited his GI morning of admission * Pt reports he saw GI, Dr. Alvarado, 11/22/18. case discussed with Dr. Alvarado, who reports pt went there to complain of abdominal pain but was sent to the ED after complaints of chest pain. Pt's abdominal pain is chronic as per Dr. Alvarado. Ramila did not recommend restarting mesalamine analogue * prior hospitalization: * Abd CT in 09/2018 shows few scattered colonic diverticuli without evidence of diverticulitis. Patchy B/L lower infiltrates. Umbilical and inguinal hernia with fat. Diffuse constipation. * Abd CT angiogram 09/2018 shows diffuse constipation no evidence of ischemia. * Sennakot PO daily * Obstructive series: unremarkable radiographs of chest and abdomen. No evidence of mechanical bowel obstruction * Prior EGD (11/2016) available in the EMR 5. Hx of CAD with CABG and stent Assessment/Plan * Cardiology (Dr. Yan) on consult help appreciated * Aspirin 81mg po daily * Lasix 20mg IV Q12H * Toprol 12.5mg PO daily * Cozaar 25mg PO daily * Crestor 10mg PoqHS * Myocardial perfusion scan 11/03/2018 shows normal myocardial perfusion test. Small fixed inferior defect. No ischemia. * Echo 08/17/2016 shows normal LV, dilated LA. trace to mild AR, TR. * Cath (11/24/18); coronary Artery disease, Recommend JUSTIN, recommend saphenous vein graft to circumflex intervention as an inpatient or after discharge * Echocardiogram (11/23/18): normal left ventricular systolic function. moderate aortic regurgitation 6. NIDDM2 Assessment/Plan * HgbA1c is 6.8 on 09/2018 * Accuchecks [id number] * Holding Glargine 10 u tonight * RISS low * Hypoglycemia protocol * Aspirin 81mg po daily * Crestor 10mg PoqHS * Re-emphasized dietary changes 7. Prior history of multifocal pneumonia Assessment/Plan * Recent hospitalization * CT chest angio 09/2018 showed pulmonary infiltrates, no evidence of PE. * He completed a course of doxycycline upon discharge * Afebrile, no white count 8. Hx of PAD/PVD Assessment/Plan * Continue home cilostazol 50mg PO BID * Continue ASA 81mg Po daily 9. Hx of gastritis Assessment/Plan * Continue home protonix 40 mg PO daily 9. Hx of cervical neuropathy/diabetic neuropathy Assessment/Plan * Continue home duloxetine 60 mg PO BID, gabapentin 100 mg PO BID 10. Leg edema Assessment/Plan * attributed to chf exacerbation * venous doppler bilateral shows no evidence of DVT * resolved 11. PPx: * GI ppx with protonix 40 mg PO daily * VTE ppx with Heparin 5000 sc q12 * HHD, CCD with 1.5L fluid restriction * PT/OT eval * monitor telemetry * changed to inpatient Disposition: * Pt to go for Coronary artery intervention in [place] with Dr. Yan [place] [facility] [place]. NPO past midnight, holding Glargine tonight. Case discussed with Dr. Mckenzie <Leo Mckenzie - Last Filed: 11/27/18 17:24> Objective - Vital Signs/Intake and Output Vital Signs (last 24 hours): Temp Pulse Resp BP Pulse Ox 98.8 F 109 H 20 107/49 L 99 11/27/18 15:00 11/27/18 15:00 11/27/18 15:00 11/27/18 15:00 11/27/18 15:00 Intake and Output: 11/27/18 11/27/18 06:59 18:59 Intake Total 600 Output Total 600 Balance 0 - Medications Medications: Current Medications Acetaminophen (Tylenol 325mg Tab) 650 mg PO Q6 PRN PRN Reason: fever/pain Albuterol/Ipratropium (Duoneb 3 Mg/0.5 Mg (3 Ml) Ud) 3 ml INH RQ6 PRN PRN Reason: Shortness of Breath Aspirin (Ecotrin) 81 mg PO DAILY [facility] Last Admin: 11/27/18 11:47 Dose: 81 mg Cilostazol (Pletal) 50 mg PO BID [facility] Last Admin: 11/27/18 11:50 Dose: 50 mg Dextrose (Dextrose 50% Inj) 0 ml IV STAT PRN; Protocol PRN Reason: Hypoglycemia Protocol Dextrose (Glutose 15) 0 gm PO ONCE PRN; Protocol PRN Reason: Hypoglycemia Protocol Duloxetine HCl (Cymbalta) 60 mg PO DAILY [facility] Last Admin: 11/27/18 11:45 Dose: 60 mg Fluticasone/Vilanterol (Breo Ellipta 100-25 Mcg Inh) 1 puff INH RQD [facility] Last Admin: 11/25/18 10:55 Dose: 1 puff Furosemide (Lasix) 20 mg IVP Q12 [facility] Last Admin: 11/27/18 11:47 Dose: 20 mg Gabapentin (Neurontin) 100 mg PO BID [facility] Last Admin: 11/27/18 11:46 Dose: 100 mg Glucagon (Glucagen Diagnostic Kit) 0 mg IM STAT PRN; Protocol PRN Reason: Hypoglycemia Protocol Heparin Sodium (Porcine) (Heparin) 5,000 units SC Q12 [facility] Last Admin: 11/27/18 10:00 Dose: Not Given Dextrose (Dextrose 5% In Water 1000 Ml) 1,000 mls @ 0 mls/hr IV .Q0M PRN; Protocol PRN Reason: Hypoglycemia Protocol Ceftriaxone Sodium 1 gm/ (Sodium Chloride) 100 mls @ 100 mls/hr IVPB DAILY [facility]; Protocol Stop: 11/28/18 20:00 Last Admin: 11/27/18 13:41 Dose: 100 mls/hr Insulin Glargine (Lantus) 10 unit SC HS [facility] Insulin Human Regular (Novolin R) 0 unit SC ACHS [facility]; Protocol Last Admin: 11/27/18 11:49 Dose: Not Given Losartan Potassium (Cozaar) 25 mg PO DAILY [facility] Last Admin: 11/27/18 11:45 Dose: 25 mg Metoprolol Succinate (Toprol Xl) 12.5 mg PO DAILY [facility] Last Admin: 11/27/18 11:50 Dose: 12.5 mg Pantoprazole Sodium (Protonix Ec Tab) 40 mg PO DAILY [facility] Last Admin: 11/27/18 11:45 Dose: 40 mg Potassium Chloride (K-Dur 20 Meq Er Tab) 20 meq PO DAILY [facility] Last Admin: 11/27/18 11:45 Dose: 20 meq Rosuvastatin Calcium (Crestor) 10 mg PO HS [facility] Last Admin: 11/26/18 22:43 Dose: 10 mg Senna/Docusate Sodium (Senokot S 50 Mg-8.6 Mg) 1 tab PO DAILY [facility] Last Admin: 11/27/18 11:46 Dose: 1 tab - Labs Labs: 11/27/18 08:03 11/27/18 08:03 PT 13.8 SECONDS (9.7-12.2) H 11/27/18 08:03 INR 1.3 11/27/18 08:03 APTT 38 SECONDS (21-34) H 11/22/18 12:56 Attending/Attestation - Attestation I have personally seen and examined this patient.: Yes I have fully participated in the care of the patient.: Yes I have reviewed all pertinent clinical information, including history, physical exam and plan: Yes
[2018-11-27] MEDS: (Novolin R) Insulin Human Regular 100 units/ml vial SC SCH ×4 (08:01→22:30)
[2018-11-27 08:10] LABS: BASO % 0.6 % (0.0-2.0); EOS % 0.2 % (0.0-4.0); HEMOGLOBIN 12.3 g/dL (12.0-18.0); LYMPH % 22.5 % (20.0-40.0); MEAN CELL VOLUME 77.5 fL (80.0-94.0); MEAN CORPUSCULAR HEMOGLOBIN 24.4 pg (27.0-31.0); MEAN CORPUSCULAR HGB CONC 31.4 g/dL (33.0-37.0); MEAN PLATELET VOLUME 8.4 fL (7.2-11.7); MONO # 1.1 K/uL (0.0-0.8); MONO % 26.2 % (0.0-10.0); NEUT # 2.2 K/uL (1.8-7.0); NEUT % 50.5 % (50.0-75.0); NRBC % 0.1 % (0.0-2.0); PLATELET COUNT 194 K/uL (130-400); RBC 5.03 Mil/uL (4.40-5.90); RED CELL DISTRIBUTION WIDTH 17.4 % (11.5-14.5); WHITE BLOOD COUNT 4.4 K/uL (4.8-10.8)
[2018-11-27 08:15] LABS: INR 1.3; PROTHROMBIN TIME 13.8 SECONDS (9.7-12.2)
[2018-11-27 08:22] LABS: ALB/GLOB RATIO 1.1 (1.0-2.1); ALBUMIN 3.9 g/dL (3.5-5.0); ALT/SGPT 25 U/L (21-72); AST/SGOT 55 U/L (17-59); BLOOD UREA NITROGEN 29 mg/dL (9-20); GFR NON-AFRICAN AMERICAN > 60
[2018-11-27 08:58] LABS: BANDS 3 % (0-2); BASOPHIL 1 % (0-2); LYMPHOCYTE 17 % (20-40); MONOCYTE 28 % (0-10); NEUTROPHIL 51 % (50-75); PLATELET ESTIMATE NORMAL (NORMAL); TOTAL CELLS COUNTED 100
[2018-11-27] MEDS ORDERED: Lidocaine 4% (Laryng-O-Jet) Kit MM ONE (08:58)
[2018-11-27] MEDS ORDERED: Propofol 10 mg/ml Inj (20 ML) ONE (09:11)
[2018-11-27] MEDS ORDERED: Midazolam 2 MG/2 ML VIAL ONE (09:11)
[2018-11-27] MEDS ORDERED: Etomidate 20 mg/10ml Inj IV ONE (09:11)
[2018-11-27] MEDS ORDERED: ePHEDrine 50 mg/ml Inj ONE (09:12)
[2018-11-27] MEDS ORDERED: Succinylcholine Chloride 20 mg/ml Syr (5 ml) IV ONE (09:12)
[2018-11-27] MEDS ORDERED: Phenylephrine 10 mg/ml Inj ONE (09:27)
[2018-11-27] MEDS: Metoprolol Succinate 12.5 mg XL Tab PO SCH ×2 (10:00→11:50)
[2018-11-27] MEDS: Docusate-Senna 50 mg-8.6 mg Tab PO SCH ×2 (10:00→11:46)
[2018-11-27] MEDS: Pantoprazole 40 mg EC Tab PO SCH ×2 (10:00→11:45)
[2018-11-27] MEDS: Potassium Chloride 20 mEq ER Tab PO SCH ×2 (10:00→11:45)
[2018-11-27] MEDS: Cilostazol 50 mg Tab UD PO SCH ×3 (10:00→18:32)
--- NOTE | 2018-11-27 10:28 | VASCLAB ---
Date of service: 11/24/2018 PROCEDURE: Lower Extremity Venous Duplex Exam. HISTORY: Leg swelling PRIORS: None. TECHNIQUE: Bilateral common femoral, femoral, popliteal and posterior tibial, peroneal and great saphenous veins were evaluated. Flow was assessed with color Doppler, compressibility, assessment of phasic flow and augmentation response. Report prepared by Mendoza Pham, GILDA, RVT FINDINGS: RIGHT: 1. Common Femoral Vein: 1.1. Compressibility - Fully compressible: Thrombus - None : Flow - Phasic: Augmentation -Normal: Reflux - None. 2. Femoral Vein: 2.1. Compressibility - Fully compressible: Thrombus - None : Flow - Phasic: Augmentation -Normal: Reflux - None. 3. Popliteal Vein: 3.1. Compressibility - Fully compressible: Thrombus - None : Flow - Phasic: Augmentation -Normal: Reflux - None. 4. Posterior Tibial Vein: 4.1. Compressibility - Fully compressible: Thrombus - None: Flow - Phasic: Augmentation -Normal: Reflux - None. 5. Peroneal Vein: 5.1. Compressibility - Fully compressible: Thrombus - None: Flow - Phasic: Augmentation -Normal: Reflux - None. 6. Great Saphenous Vein: 6.1. Compressibility - Fully compressible: Thrombus - None: Flow - Phasic: Augmentation - Normal: Reflux - None. LEFT: 1. Common Femoral Vein: 1.1. Compressibility - Fully compressible: Thrombus - None: Flow - Phasic: Augmentation -Normal: Reflux - None. 2. Femoral Vein: 2.1. Compressibility - Fully compressible: Thrombus - None: Flow - Phasic: Augmentation -Normal: Reflux - None. 3. Popliteal Vein: 3.1. Compressibility - Fully compressible: Thrombus - None : Flow - Phasic: Augmentation -Normal: Reflux - None. 4. Posterior Tibial Vein: 4.1. Compressibility - Fully compressible: Thrombus - None: Flow - Phasic: Augmentation -Normal: Reflux - None. 5. Peroneal Vein: 5.1. Compressibility - Fully compressible: Thrombus - None: Flow - Phasic: Augmentation -Normal: Reflux - None. 6. Great Saphenous Vein: 6.1. Compressibility - : Thrombus - : Flow - : Augmentation - : Reflux - . OTHER FINDINGS: Right: None significant. Left: The left greater saphenous vein previously removed. IMPRESSION: Right: No evidence of deep or superficial vein thrombosis of the right lower extremity. Normal valve function noted of the right side. Left: No evidence of deep or superficial vein thrombosis of the left lower extremity. Normal valve function noted of the left side.
--- NOTE | 2018-11-27 18:33 | CP.PCM.PN ---
Subjective - Date & Time of Evaluation Date of Evaluation: 11/27/18 Time of Evaluation: 18:32 - Subjective Subjective: Patient is seen and examined No events overnight Objective - Vital Signs/Intake and Output Vital Signs (last 24 hours): Temp Pulse Resp BP Pulse Ox 98.8 F 109 H 20 107/49 L 99 11/27/18 15:00 11/27/18 15:00 11/27/18 15:00 11/27/18 15:00 11/27/18 15:00 Intake and Output: 11/27/18 11/27/18 06:59 18:59 Intake Total 600 Output Total 600 Balance 0 - Medications Medications: Current Medications Acetaminophen (Tylenol 325mg Tab) 650 mg PO Q6 PRN PRN Reason: fever/pain Albuterol/Ipratropium (Duoneb 3 Mg/0.5 Mg (3 Ml) Ud) 3 ml INH RQ6 PRN PRN Reason: Shortness of Breath Aspirin (Ecotrin) 81 mg PO DAILY [facility] Last Admin: 11/27/18 11:47 Dose: 81 mg Cilostazol (Pletal) 50 mg PO BID [facility] Last Admin: 11/27/18 11:50 Dose: 50 mg Dextrose (Dextrose 50% Inj) 0 ml IV STAT PRN; Protocol PRN Reason: Hypoglycemia Protocol Dextrose (Glutose 15) 0 gm PO ONCE PRN; Protocol PRN Reason: Hypoglycemia Protocol Duloxetine HCl (Cymbalta) 60 mg PO DAILY [facility] Last Admin: 11/27/18 11:45 Dose: 60 mg Fluticasone/Vilanterol (Breo Ellipta 100-25 Mcg Inh) 1 puff INH RQD [facility] Last Admin: 11/25/18 10:55 Dose: 1 puff Furosemide (Lasix) 20 mg IVP Q12 [facility] Last Admin: 11/27/18 11:47 Dose: 20 mg Gabapentin (Neurontin) 100 mg PO BID [facility] Last Admin: 11/27/18 11:46 Dose: 100 mg Glucagon (Glucagen Diagnostic Kit) 0 mg IM STAT PRN; Protocol PRN Reason: Hypoglycemia Protocol Heparin Sodium (Porcine) (Heparin) 5,000 units SC Q12 [facility] Last Admin: 11/27/18 10:00 Dose: Not Given Dextrose (Dextrose 5% In Water 1000 Ml) 1,000 mls @ 0 mls/hr IV .Q0M PRN; Protocol PRN Reason: Hypoglycemia Protocol Ceftriaxone Sodium 1 gm/ (Sodium Chloride) 100 mls @ 100 mls/hr IVPB DAILY [facility]; Protocol Stop: 11/28/18 20:00 Last Admin: 11/27/18 13:41 Dose: 100 mls/hr Insulin Glargine (Lantus) 10 unit SC HS [facility] Insulin Human Regular (Novolin R) 0 unit SC ACHS [facility]; Protocol Last Admin: 11/27/18 11:49 Dose: Not Given Losartan Potassium (Cozaar) 25 mg PO DAILY [facility] Last Admin: 11/27/18 11:45 Dose: 25 mg Metoprolol Succinate (Toprol Xl) 12.5 mg PO DAILY [facility] Last Admin: 11/27/18 11:50 Dose: 12.5 mg Pantoprazole Sodium (Protonix Ec Tab) 40 mg PO DAILY [facility] Last Admin: 11/27/18 11:45 Dose: 40 mg Potassium Chloride (K-Dur 20 Meq Er Tab) 20 meq PO DAILY [facility] Last Admin: 11/27/18 11:45 Dose: 20 meq Rosuvastatin Calcium (Crestor) 10 mg PO HS [facility] Last Admin: 11/26/18 22:43 Dose: 10 mg Senna/Docusate Sodium (Senokot S 50 Mg-8.6 Mg) 1 tab PO DAILY [facility] Last Admin: 11/27/18 11:46 Dose: 1 tab - Labs Labs: 11/27/18 08:03 11/27/18 08:03 PT 13.8 SECONDS (9.7-12.2) H 11/27/18 08:03 INR 1.3 11/27/18 08:03 APTT 38 SECONDS (21-34) H 11/22/18 12:56 - Head Exam Head Exam: NORMAL INSPECTION - Eye Exam Eye Exam: Normal appearance - ENT Exam ENT Exam: Mucous Membranes Moist - Respiratory Exam Respiratory Exam: Clear to Ausculation Bilateral - Cardiovascular Exam Cardiovascular Exam: REGULAR RHYTHM, +S1, +S2 - GI/Abdominal Exam GI & Abdominal Exam: Soft, Normal Bowel Sounds - Extremities Exam Extremities Exam: Normal Inspection - Neurological Exam Neurological Exam: Alert, Oriented x3 - Psychiatric Exam Psychiatric exam: Normal Affect, Normal Mood Assessment and Plan (1) Obstructive sleep apnea (adult) (pediatric) Status: Acute (2) Asthma Status: Acute (3) CHF (congestive heart failure) Status: Acute - Assessment and Plan (Free Text) Plan: Breo Ellipta Duonebs CPAP at night Lasix DVT/GI prophalaxis
--- NOTE | 2018-11-27 21:01 | CARD ---
APPROVED REPORT Date of service: 11/27/2018 EXAM: Transesophageal echocardiogram with color flow Doppler. Mitral Valve E/A ratio0.0 TDI E/Lateral E'0.0E/Medial E'0.0 LEFT VENTRICLE The left ventricle is normal size. There is normal left ventricular wall thickness. The left ventricular function is normal. The left ventricular ejection fraction is within the normal range. No regional wall motion abnormalities noted. ] No left ventricle thrombus noted on this study. There is no ventricular septal defect visualized. There is no left ventricular aneurysm. There is no mass noted in the left ventricle. RIGHT VENTRICLE The right ventricle is normal size. There is normal right ventricular wall thickness. The right ventricular systolic function is normal. ATRIA The left atrium size is normal. The right atrium size is normal. The interatrial septum is intact with no evidence for an atrial septal defect. AORTIC VALVE The aortic valve iopen s normally. The Moderate to severe aortic regurgitation is present. VC is .6 cm. There is no significant flow reversal in the descending thoracic aorta. The right cusp has a small non mobile region of thickening, on the upstrean, surface of the valve. less likely to be a vegetation. There is no aortic valvular stenosis. There is no aortic valvular vegetation. MITRAL VALVE The mitral valve is normal in structure and function. There is no evidence of mitral valve prolapse. There is no mitral valve stenosis. There is mild mitral valve regurgitation noted. TRICUSPID VALVE The tricuspid valve is normal in structure and function. There is no tricuspid valve regurgitation noted. There is no tricuspid valve prolapse or vegetation. There is no tricuspid valve stenosis. PULMONIC VALVE The pulmonary valve is normal in structure and function. There is no pulmonic valvular regurgitation. There is no pulmonic valvular stenosis. GREAT VESSELS The aortic root is normal in size. The ascending aorta is normal in size.There is moderate fied calcific plaue in the aortic arch. The pulmonary artery is normal. The IVC is normal in size and collapses >50% with inspiration. PERICARDIAL EFFUSION The pericardium appears normal. There is no pleural effusion. <Conclusion> Moderate to severe aortic regurgitation is present. VC is .6 cm. There is no significant flow reversal in the descending thoracic aorta. The right cusp has a small non mobile region of thickening, on the upstrean, surface of the valve. less likely to be a vegetation. Normal LV systolic function. There is moderate fied calcific plaue in the aortic arch.
[2018-11-27] MEDS ORDERED: (Lantus) Insulin Glargine, Recombinant SC SCH (22:00)
[2018-11-28 06:35] LABS: BASO % 0.5 % (0.0-2.0); EOS # 0.1 K/uL (0.0-0.7); EOS % 1.1 % (0.0-4.0); HEMOGLOBIN 11.4 g/dL (12.0-18.0); LYMPH # 1.1 K/uL (1.0-4.3); LYMPH % 22.5 % (20.0-40.0); MEAN CELL VOLUME 77.2 fL (80.0-94.0); MEAN CORPUSCULAR HEMOGLOBIN 24.1 pg (27.0-31.0); MEAN CORPUSCULAR HGB CONC 31.2 g/dL (33.0-37.0); MEAN PLATELET VOLUME 8.2 fL (7.2-11.7); MONO # 0.7 K/uL (0.0-0.8); MONO % 14.3 % (0.0-10.0); NEUT % 61.6 % (50.0-75.0); RBC 4.73 Mil/uL (4.40-5.90); WHITE BLOOD COUNT 4.9 K/uL (4.8-10.8)
[2018-11-28 06:48] LABS: ALB/GLOB RATIO 1.1 (1.0-2.1); ALBUMIN 3.4 g/dL (3.5-5.0); ALT/SGPT 31 U/L (21-72); AST/SGOT 38 U/L (17-59); BLOOD UREA NITROGEN 22 mg/dL (9-20); CALCIUM 8.6 mg/dl (8.6-10.4); GFR NON-AFRICAN AMERICAN > 60
--- NOTE | 2018-11-28 07:31 | CP.PCM.PN ---
<Arvind Zuluaga - Last Filed: 11/28/18 15:51> Subjective - Date & Time of Evaluation Date of Evaluation: 11/28/18 Time of Evaluation: 07:00 - Subjective Subjective: PGY1 medicine progress note for Dr. Mckenzie Pt was unable to be evaluated, as he is at [facility] [place]. Will update progress note when he returns. Objective - Vital Signs/Intake and Output Vital Signs (last 24 hours): Temp Pulse Resp BP Pulse Ox 98.8 F 107 H 20 110/70 100 11/28/18 06:25 11/28/18 06:25 11/28/18 06:25 11/28/18 06:25 11/28/18 06:25 Intake and Output: 11/28/18 11/28/18 06:59 18:59 Intake Total 300 Output Total 700 Balance -400 - Medications Medications: Current Medications Acetaminophen (Tylenol 325mg Tab) 650 mg PO Q6 PRN PRN Reason: fever/pain Albuterol/Ipratropium (Duoneb 3 Mg/0.5 Mg (3 Ml) Ud) 3 ml INH RQ6 PRN PRN Reason: Shortness of Breath Aspirin (Ecotrin) 81 mg PO DAILY [facility] Last Admin: 11/28/18 06:40 Dose: 81 mg Cilostazol (Pletal) 50 mg PO BID [facility] Last Admin: 11/27/18 18:32 Dose: 50 mg Dextrose (Dextrose 50% Inj) 0 ml IV STAT PRN; Protocol PRN Reason: Hypoglycemia Protocol Dextrose (Glutose 15) 0 gm PO ONCE PRN; Protocol PRN Reason: Hypoglycemia Protocol Duloxetine HCl (Cymbalta) 60 mg PO DAILY [facility] Last Admin: 11/27/18 11:45 Dose: 60 mg Fluticasone/Vilanterol (Breo Ellipta 100-25 Mcg Inh) 1 puff INH RQD [facility] Last Admin: 11/25/18 10:55 Dose: 1 puff Furosemide (Lasix) 20 mg IVP Q12 [facility] Last Admin: 11/27/18 22:21 Dose: 20 mg Gabapentin (Neurontin) 100 mg PO BID [facility] Last Admin: 11/27/18 18:32 Dose: 100 mg Glucagon (Glucagen Diagnostic Kit) 0 mg IM STAT PRN; Protocol PRN Reason: Hypoglycemia Protocol Heparin Sodium (Porcine) (Heparin) 5,000 units SC Q12 [facility] Last Admin: 11/27/18 22:20 Dose: 5,000 units Dextrose (Dextrose 5% In Water 1000 Ml) 1,000 mls @ 0 mls/hr IV .Q0M PRN; Protocol PRN Reason: Hypoglycemia Protocol Ceftriaxone Sodium 1 gm/ (Sodium Chloride) 100 mls @ 100 mls/hr IVPB DAILY [facility]; Protocol Stop: 11/28/18 20:00 Last Admin: 11/27/18 13:41 Dose: 100 mls/hr Insulin Glargine (Lantus) 10 unit SC HS [facility] Insulin Human Regular (Novolin R) 0 unit SC ACHS [facility]; Protocol Last Admin: 11/27/18 22:30 Dose: Not Given Losartan Potassium (Cozaar) 25 mg PO DAILY [facility] Last Admin: 11/27/18 11:45 Dose: 25 mg Metoprolol Succinate (Toprol Xl) 12.5 mg PO DAILY [facility] Last Admin: 11/27/18 11:50 Dose: 12.5 mg Pantoprazole Sodium (Protonix Ec Tab) 40 mg PO DAILY [facility] Last Admin: 11/27/18 11:45 Dose: 40 mg Potassium Chloride (K-Dur 20 Meq Er Tab) 20 meq PO DAILY [facility] Last Admin: 11/27/18 11:45 Dose: 20 meq Rosuvastatin Calcium (Crestor) 10 mg PO HS [facility] Last Admin: 11/27/18 22:21 Dose: 10 mg Senna/Docusate Sodium (Senokot S 50 Mg-8.6 Mg) 1 tab PO DAILY [facility] Last Admin: 11/27/18 11:46 Dose: 1 tab - Labs Labs: 11/28/18 06:26 11/28/18 06:26 PT 13.8 SECONDS (9.7-12.2) H 11/27/18 08:03 INR 1.3 11/27/18 08:03 APTT 38 SECONDS (21-34) H 11/22/18 12:56 Assessment and Plan - Assessment and Plan (Free Text) Assessment: Patient is a 58 year old [place] Male with pmhx of CAD with CABG 2003, stent 2010, DM2, PVD, Hyperlipidemia, angina, HTN, gastritis that came to the ED for dyspnea on exertion, chest pain, and abdomen enlargement and pain. Noted to be in CHF exacerbation, with NSTEMI. Underwent PCI 11/28/18 at [facility] for 80% of SVG to OM. 1. Chest pain secondary to acute on chronic CHF exacerbation, severe coronary artery disease, aortic regurgitation NSTEMI Assessment/Plan * changed to inpatient for workup in light of cath findings * Cardiology (Dr. Yan) on consult help appreciated * Pt will undergo PCI tomorrow morning at [facility] for 80% of OM * Pt has significant cardiac risk factors including history of CABG, CHF, GASTON, DM, CAD, DM * Pt received ASA 325 mg PO in the ED on admission * troponin 0.0890-->0.1620-->0.1170 * Positive Troponin prompting cardiac cath 11/24/18 * elevated probnp * improving * Aspirin 81mg po daily * Lasix 20mg IV Q12H * Toprol 12.5mg PO daily * Cozaar 25mg PO daily * Crestor 10mg PoqHS * Echo (08/25): normal V systolic function, dilated LA, trace to mild AR, and trace to mild TR * Myocardial Stress (11/03/18); small fixed inferior defect. No stress induced ischemia. Normal EF. * Chest xray (11/22/18): no active disease. no significant interval change com pared ot the prior examination * Cath (11/24/18); coronary Artery disease, Recommend JUSTIN, recommend saphenous vein graft to circumflex intervention as an inpatient or after discharge * Patient s/p Cardiac cath * 1. L Main: patent * 2. LAD Prox 100% * 3. L Cx: Mid 100% instent * 4. RCA: Mid 100%, Left to Right collaterals * 5. AGUERO to LAD patent * 6. SVG to OM 80% * 7. EF 55%, EDP 20, No * 8. Aortogram reveals moderate Aortic insuffiency Per cardiology, CAD management SVG graft intervention tomorrow at [facility] by Dr. Yan * Echocardiogram (11/23/18): normal left ventricular systolic function. moderate aortic regurgitation * JUSTIN 11/27/[address] Almeida. shows moderate to severe aortic regurgitation. VC is 0.6 vm. calcific plaque in aortic arch. Right cusp has a small nonmobile. Less likely to be vegation. 2. HFpEF exacerbation, acute on chronic Assessment/Plan * Cardiology (Dr. Yan) on consult help appreciated * Pt has significant cardiac risk factors including history of CABG, CHF, GASTON, DM, CAD, DM * Pt received ASA 325 mg PO in the ED * elevated probnp * Aspirin 81mg po daily * Lasix 20mg IV Q12H * Toprol 12.5mg PO daily * Cozaar 25mg PO daily * Crestor 10mg PO qHS * Echo (08/25): normal V systolic function, dilated LA, trace to mild AR, and trace to mild TR * Myocardial Stress (11/03/18); small fixed inferior defect. No stress induced ischemia. Normal EF. * Chest xray (11/22/18): no active disease. no significant interval change compared ot the prior examination * Cath (11/24/18); coronary Artery disease, Recommend JUSTIN, recommend saphenous vein graft to circumflex intervention as an inpatient or after discharge * Echocardiogram (11/23/18): normal left ventricular systolic function. moderate aortic regurgitation * Fluid restriction * Daily Weight 3. Hx of asthma,, history ofOSA Assessment/Plan * Pulm Dr. Akers, consulted. Recommendations appreciated. * patient recommended to using autopap; does not use it; discussed with pulm noted noncompliance * Duoneb q6h prn * Breo Ellipta 1p uff inhaled RQDaily * CPAP at 10 cm H2o at night, pt is noncompliant, but we will continue to educate and attempt to have pt use at night. 4. Abdominal distension with pain History of Gastritis Small hiatus hernia and umbilical hernia Urine culture positive for gram negative rods Assessment/Plan * Patient had visited his GI morning of admission * Pt reports he saw GI, Dr. Alvarado, 11/22/18. case discussed with Dr. Alvarado, who reports pt went there to complain of abdominal pain but was sent to the ED after complaints of chest pain. Pt's abdominal pain is chronic as per Dr. Alvarado. Ramila did not recommend restarting mesalamine analogue * prior hospitalization: * Abd CT in 09/2018 shows few scattered colonic diverticuli without evidence of diverticulitis. Patchy B/L lower infiltrates. Umbilical and inguinal hernia with fat. Diffuse constipation. * Abd CT angiogram 09/2018 shows diffuse constipation no evidence of ischemia. * Sennakot PO daily * Obstructive series: unremarkable radiographs of chest and abdomen. No evidence of mechanical bowel obstruction * Prior EGD (11/2016) available in the EMR * UA on admission shows only glucose. * However, pt with abdominal pain. Will be treated with Rocephin 1g IV daily for 3 days. 5. Hx of CAD with CABG and stent Assessment/Plan * Cardiology (Dr. Yan) on consult help appreciated * Aspirin 81mg po daily * Lasix 20mg IV Q12H * Toprol 12.5mg PO daily * Cozaar 25mg PO daily * Crestor 10mg PoqHS * Myocardial perfusion scan 11/03/2018 shows normal myocardial perfusion test. Small fixed inferior defect. No ischemia. * Echo 08/17/2016 shows normal LV, dilated LA. trace to mild AR, TR. * Cath (11/24/18); coronary Artery disease, Recommend JUSTIN, recommend saphenous vein graft to circumflex intervention as an inpatient or after discharge * Echocardiogram (11/23/18): normal left ventricular systolic function. moderate aortic regurgitation 6. NIDDM2 Assessment/Plan * HgbA1c is 6.8 on 09/2018 * Accuchecks q8codbzssn * Holding Glargine 10 u tonight * RISS low * Hypoglycemia protocol * Aspirin 81mg po daily * Crestor 10mg PoqHS * Re-emphasized dietary changes 7. Prior history of multifocal pneumonia Assessment/Plan * Recent hospitalization * CT chest angio 09/2018 showed pulmonary infiltrates, no evidence of PE. * He completed a course of doxycycline upon discharge * Afebrile, no white count 8. Hx of PAD/PVD Assessment/Plan * Continue home cilostazol 50mg PO BID * Continue ASA 81mg Po daily 9. Hx of gastritis Assessment/Plan * Continue home protonix 40 mg PO daily 9. Hx of cervical neuropathy/diabetic neuropathy Assessment/Plan * Continue home duloxetine 60 mg PO BID, gabapentin 100 mg PO BID 10. Leg edema Assessment/Plan * attributed to chf exacerbation * venous doppler bilateral shows no evidence of DVT * resolved 11. PPx: * GI ppx with protonix 40 mg PO daily * VTE ppx with Heparin 5000 sc q12 * HHD, CCD with 1.5L fluid restriction * PT/OT eval * monitor telemetry * changed to inpatient Disposition: * Pt to undergo PCI with Dr. Yan at [facility].. Case discussed with Dr. Mckenzie <Leo Mckenzie - Last Filed: 11/28/18 16:36> Objective - Vital Signs/Intake and Output Vital Signs (last 24 hours): Temp Pulse Resp BP Pulse Ox 98.8 F 92 H 20 205/99 H 100 11/28/18 06:25 11/28/18 11:27 11/28/18 06:25 11/28/18 11:27 11/28/18 06:25 Intake and Output: 11/28/18 11/28/18 06:59 18:59 Intake Total 300 Output Total 700 Balance -400 - Medications Medications: Current Medications Acetaminophen (Tylenol 325mg Tab) 650 mg PO Q6 PRN PRN Reason: fever/pain Albuterol/Ipratropium (Duoneb 3 Mg/0.5 Mg (3 Ml) Ud) 3 ml INH RQ6 PRN PRN Reason: Shortness of Breath Aspirin (Ecotrin) 81 mg PO DAILY [facility] Last Admin: 11/28/18 10:39 Dose: Not Given Cilostazol (Pletal) 50 mg PO BID [facility] Last Admin: 11/28/18 10:41 Dose: Not Given Clopidogrel Bisulfate (Plavix) 75 mg PO DAILY [facility] Last Admin: 11/28/18 10:41 Dose: Not Given Dextrose (Dextrose 50% Inj) 0 ml IV STAT PRN; Protocol PRN Reason: Hypoglycemia Protocol Dextrose (Glutose 15) 0 gm PO ONCE PRN; Protocol PRN Reason: Hypoglycemia Protocol Duloxetine HCl (Cymbalta) 60 mg PO DAILY [facility] Last Admin: 11/28/18 10:39 Dose: Not Given Famotidine (Pepcid) 40 mg PO DAILY [facility] Last Admin: 11/28/18 10:41 Dose: Not Given Fluticasone/Vilanterol (Breo Ellipta 100-25 Mcg Inh) 1 puff INH RQD [facility] Last Admin: 11/28/18 09:15 Dose: Not Given Furosemide (Lasix) 20 mg IVP Q12 [facility] Last Admin: 11/28/18 10:40 Dose: Not Given Gabapentin (Neurontin) 100 mg PO BID [facility] Last Admin: 11/28/18 10:40 Dose: Not Given Glucagon (Glucagen Diagnostic Kit) 0 mg IM STAT PRN; Protocol PRN Reason: Hypoglycemia Protocol Heparin Sodium (Porcine) (Heparin) 5,000 units SC Q12 [facility] Last Admin: 11/28/18 10:39 Dose: Not Given Dextrose (Dextrose 5% In Water 1000 Ml) 1,000 mls @ 0 mls/hr IV .Q0M PRN; Protocol PRN Reason: Hypoglycemia Protocol Ceftriaxone Sodium 1 gm/ (Sodium Chloride) 100 mls @ 100 mls/hr IVPB DAILY [facility]; Protocol Stop: 11/28/18 20:00 Last Admin: 11/27/18 13:41 Dose: 100 mls/hr Insulin Glargine (Lantus) 10 unit SC HS [facility] Insulin Human Regular (Novolin R) 0 unit SC ACHS [facility]; Protocol Last Admin: 11/28/18 10:40 Dose: Not Given Losartan Potassium (Cozaar) 25 mg PO DAILY [facility] Last Admin: 11/28/18 10:38 Dose: Not Given Metoprolol Succinate (Toprol Xl) 12.5 mg PO DAILY [facility] Last Admin: 11/28/18 10:42 Dose: Not Given Potassium Chloride (K-Dur 20 Meq Er Tab) 20 meq PO DAILY [facility] Last Admin: 11/28/18 10:39 Dose: Not Given Rosuvastatin Calcium (Crestor) 10 mg PO HS [facility] Last Admin: 11/27/18 22:21 Dose: 10 mg Senna/Docusate Sodium (Senokot S 50 Mg-8.6 Mg) 1 tab PO DAILY [facility] Last Admin: 11/28/18 10:42 Dose: Not Given - Labs Labs: 11/28/18 06:26 11/28/18 06:26 PT 13.8 SECONDS (9.7-12.2) H 11/27/18 08:03 INR 1.3 11/27/18 08:03 APTT 38 SECONDS (21-34) H 11/22/18 12:56 Attending/Attestation - Attestation I have personally seen and examined this patient.: Yes I have fully participated in the care of the patient.: Yes I have reviewed all pertinent clinical information, including history, physical exam and plan: Yes Notes (Text): Agree with above, gone to [facility] for [place]. Will evaluate patient on return.
[2018-11-28] MEDS: Fluticasone-Vilanterol 100/25mcg Diskus INH SCH (09:15)
--- NOTE | 2018-11-28 09:28 | CP.PCM.PN ---
Subjective - Date & Time of Evaluation Date of Evaluation: 11/28/18 Time of Evaluation: 09:21 - Subjective Subjective: Patient s/p SVG to OM graft intervention with 2 WILFRIDO stents OOB to ambulate after 1 pm today Plavix 75 daily for 1 year ASA, Statin, Cilostazole, B blockers and MARY for life Lasix 20 po daily x 2 weeks KCL 10mq po daily x 2weeks If stable can D/C home tomorrow F/U with me on December 21 F/U with PMD in 1 week Objective - Vital Signs/Intake and Output Vital Signs (last 24 hours): Temp Pulse Resp BP Pulse Ox 98.8 F 107 H 20 110/70 100 11/28/18 06:25 11/28/18 06:25 11/28/18 06:25 11/28/18 06:25 11/28/18 06:25 Intake and Output: 11/28/18 11/28/18 06:59 18:59 Intake Total 300 Output Total 700 Balance -400 - Medications Medications: Current Medications Acetaminophen (Tylenol 325mg Tab) 650 mg PO Q6 PRN PRN Reason: fever/pain Albuterol/Ipratropium (Duoneb 3 Mg/0.5 Mg (3 Ml) Ud) 3 ml INH RQ6 PRN PRN Reason: Shortness of Breath Aspirin (Ecotrin) 81 mg PO DAILY [facility] Last Admin: 11/28/18 06:40 Dose: 81 mg Cilostazol (Pletal) 50 mg PO BID [facility] Last Admin: 11/27/18 18:32 Dose: 50 mg Clopidogrel Bisulfate (Plavix) 75 mg PO DAILY [facility] Dextrose (Dextrose 50% Inj) 0 ml IV STAT PRN; Protocol PRN Reason: Hypoglycemia Protocol Dextrose (Glutose 15) 0 gm PO ONCE PRN; Protocol PRN Reason: Hypoglycemia Protocol Duloxetine HCl (Cymbalta) 60 mg PO DAILY [facility] Last Admin: 11/27/18 11:45 Dose: 60 mg Fluticasone/Vilanterol (Breo Ellipta 100-25 Mcg Inh) 1 puff INH RQD [facility] Last Admin: 11/28/18 09:15 Dose: Not Given Furosemide (Lasix) 20 mg IVP Q12 [facility] Last Admin: 11/27/18 22:21 Dose: 20 mg Gabapentin (Neurontin) 100 mg PO BID [facility] Last Admin: 11/27/18 18:32 Dose: 100 mg Glucagon (Glucagen Diagnostic Kit) 0 mg IM STAT PRN; Protocol PRN Reason: Hypoglycemia Protocol Heparin Sodium (Porcine) (Heparin) 5,000 units SC Q12 [facility] Last Admin: 11/27/18 22:20 Dose: 5,000 units Dextrose (Dextrose 5% In Water 1000 Ml) 1,000 mls @ 0 mls/hr IV .Q0M PRN; Protocol PRN Reason: Hypoglycemia Protocol Ceftriaxone Sodium 1 gm/ (Sodium Chloride) 100 mls @ 100 mls/hr IVPB DAILY [facility]; Protocol Stop: 11/28/18 20:00 Last Admin: 11/27/18 13:41 Dose: 100 mls/hr Insulin Glargine (Lantus) 10 unit SC HS [facility] Insulin Human Regular (Novolin R) 0 unit SC ACHS [facility]; Protocol Last Admin: 11/27/18 22:30 Dose: Not Given Losartan Potassium (Cozaar) 25 mg PO DAILY [facility] Last Admin: 11/27/18 11:45 Dose: 25 mg Metoprolol Succinate (Toprol Xl) 12.5 mg PO DAILY [facility] Last Admin: 11/27/18 11:50 Dose: 12.5 mg Pantoprazole Sodium (Protonix Ec Tab) 40 mg PO DAILY [facility] Last Admin: 11/27/18 11:45 Dose: 40 mg Potassium Chloride (K-Dur 20 Meq Er Tab) 20 meq PO DAILY [facility] Last Admin: 11/27/18 11:45 Dose: 20 meq Rosuvastatin Calcium (Crestor) 10 mg PO HS [facility] Last Admin: 11/27/18 22:21 Dose: 10 mg Senna/Docusate Sodium (Senokot S 50 Mg-8.6 Mg) 1 tab PO DAILY [facility] Last Admin: 11/27/18 11:46 Dose: 1 tab - Labs Labs: 11/28/18 06:26 11/28/18 06:26 PT 13.8 SECONDS (9.7-12.2) H 11/27/18 08:03 INR 1.3 11/27/18 08:03 APTT 38 SECONDS (21-34) H 11/22/18 12:56
[2018-11-28] MEDS: Potassium Chloride 20 mEq ER Tab PO SCH (10:39)
[2018-11-28] MEDS: (Novolin R) Insulin Human Regular 100 units/ml vial SC SCH ×4 (10:40→21:45)
[2018-11-28] MEDS: Cilostazol 50 mg Tab UD PO SCH ×2 (10:41→19:24)
[2018-11-28] MEDS: Docusate-Senna 50 mg-8.6 mg Tab PO SCH (10:42)
[2018-11-28] MEDS: Metoprolol Succinate 12.5 mg XL Tab PO SCH (10:42)
--- NOTE | 2018-11-28 16:45 | CP.PCM.PN ---
Subjective - Date & Time of Evaluation Date of Evaluation: 11/28/18 Time of Evaluation: 16:44 - Subjective Subjective: Pt is seen and examined No events overnight Objective - Vital Signs/Intake and Output Vital Signs (last 24 hours): Temp Pulse Resp BP Pulse Ox 98.8 F 92 H 20 205/99 H 100 11/28/18 06:25 11/28/18 11:27 11/28/18 06:25 11/28/18 11:27 11/28/18 06:25 Intake and Output: 11/28/18 11/28/18 06:59 18:59 Intake Total 300 Output Total 700 Balance -400 - Medications Medications: Current Medications Acetaminophen (Tylenol 325mg Tab) 650 mg PO Q6 PRN PRN Reason: fever/pain Albuterol/Ipratropium (Duoneb 3 Mg/0.5 Mg (3 Ml) Ud) 3 ml INH RQ6 PRN PRN Reason: Shortness of Breath Aspirin (Ecotrin) 81 mg PO DAILY [facility] Last Admin: 11/28/18 10:39 Dose: Not Given Cilostazol (Pletal) 50 mg PO BID [facility] Last Admin: 11/28/18 10:41 Dose: Not Given Clopidogrel Bisulfate (Plavix) 75 mg PO DAILY [facility] Last Admin: 11/28/18 10:41 Dose: Not Given Dextrose (Dextrose 50% Inj) 0 ml IV STAT PRN; Protocol PRN Reason: Hypoglycemia Protocol Dextrose (Glutose 15) 0 gm PO ONCE PRN; Protocol PRN Reason: Hypoglycemia Protocol Duloxetine HCl (Cymbalta) 60 mg PO DAILY [facility] Last Admin: 11/28/18 10:39 Dose: Not Given Famotidine (Pepcid) 40 mg PO DAILY [facility] Last Admin: 11/28/18 10:41 Dose: Not Given Fluticasone/Vilanterol (Breo Ellipta 100-25 Mcg Inh) 1 puff INH RQD [facility] Last Admin: 11/28/18 09:15 Dose: Not Given Furosemide (Lasix) 20 mg IVP Q12 [facility] Last Admin: 11/28/18 10:40 Dose: Not Given Gabapentin (Neurontin) 100 mg PO BID [facility] Last Admin: 11/28/18 10:40 Dose: Not Given Glucagon (Glucagen Diagnostic Kit) 0 mg IM STAT PRN; Protocol PRN Reason: Hypoglycemia Protocol Heparin Sodium (Porcine) (Heparin) 5,000 units SC Q12 [facility] Last Admin: 11/28/18 10:39 Dose: Not Given Dextrose (Dextrose 5% In Water 1000 Ml) 1,000 mls @ 0 mls/hr IV .Q0M PRN; Protocol PRN Reason: Hypoglycemia Protocol Ceftriaxone Sodium 1 gm/ (Sodium Chloride) 100 mls @ 100 mls/hr IVPB DAILY [facility]; Protocol Stop: 11/28/18 20:00 Last Admin: 11/27/18 13:41 Dose: 100 mls/hr Insulin Glargine (Lantus) 10 unit SC [facility] Insulin Human Regular (Novolin R) 0 unit SC ACHS [facility]; Protocol Last Admin: 11/28/18 10:40 Dose: Not Given Losartan Potassium (Cozaar) 25 mg PO DAILY [facility] Last Admin: 11/28/18 10:38 Dose: Not Given Metoprolol Succinate (Toprol Xl) 12.5 mg PO DAILY [facility] Last Admin: 11/28/18 10:42 Dose: Not Given Potassium Chloride (K-Dur 20 Meq Er Tab) 20 meq PO DAILY [facility] Last Admin: 11/28/18 10:39 Dose: Not Given Rosuvastatin Calcium (Crestor) 10 mg PO HS [facility] Last Admin: 11/27/18 22:21 Dose: 10 mg Senna/Docusate Sodium (Senokot S 50 Mg-8.6 Mg) 1 tab PO DAILY [facility] Last Admin: 11/28/18 10:42 Dose: Not Given - Labs Labs: 11/28/18 06:26 11/28/18 06:26 PT 13.8 SECONDS (9.7-12.2) H 11/27/18 08:03 INR 1.3 11/27/18 08:03 APTT 38 SECONDS (21-34) H 11/22/18 12:56 - Head Exam Head Exam: NORMAL INSPECTION - Eye Exam Eye Exam: Normal appearance - ENT Exam ENT Exam: Mucous Membranes Moist - Respiratory Exam Respiratory Exam: Clear to Ausculation Bilateral - Cardiovascular Exam Cardiovascular Exam: REGULAR RHYTHM, +S1, +S2 - GI/Abdominal Exam GI & Abdominal Exam: Soft, Normal Bowel Sounds - Extremities Exam Extremities Exam: Normal Inspection - Neurological Exam Neurological Exam: Alert, Oriented x3 Assessment and Plan (1) Obstructive sleep apnea (adult) (pediatric) Status: Acute (2) Asthma Status: Acute (3) CHF (congestive heart failure) Status: Acute - Assessment and Plan (Free Text) Plan: S/P PCI Breo Ellipta Duonebs CPAP at night Lasix DVT/GI prophalaxis
[2018-11-28] MEDS: Nystatin 100,000 Units/ml Oral Susp 5 ml UD PO SCH ×2 (18:22→21:55)
[2018-11-28] MEDS ORDERED: guaiFENesin DM 200 mg-20 mg/10 ml UD PO STA (19:12)
[2018-11-29] MEDS: (Novolin R) Insulin Human Regular 100 units/ml vial SC SCH ×2 (07:29→12:23)
[2018-11-29 07:50] VITALS: PULSE 111; TEMP 98.5
[2018-11-29 08:02] LABS: ALB/GLOB RATIO 1.1 (1.0-2.1); ALBUMIN 3.3 g/dL (3.5-5.0); ALT/SGPT 22 U/L (21-72); AST/SGOT 56 U/L (17-59); BLOOD UREA NITROGEN 19 mg/dL (9-20); CALCIUM 8.5 mg/dl (8.6-10.4); GFR NON-AFRICAN AMERICAN > 60
[2018-11-29 08:03] LABS: BASO % 0.5 % (0.0-2.0); EOS # 0.1 K/uL (0.0-0.7); EOS % 2.1 % (0.0-4.0); HEMOGLOBIN 11.3 g/dL (12.0-18.0); LYMPH # 0.9 K/uL (1.0-4.3); LYMPH % 28.8 % (20.0-40.0); MEAN CORPUSCULAR HEMOGLOBIN 24.7 pg (27.0-31.0); MEAN CORPUSCULAR HGB CONC 32.1 g/dL (33.0-37.0); MEAN PLATELET VOLUME 8.4 fL (7.2-11.7); MONO # 0.5 K/uL (0.0-0.8); MONO % 15.9 % (0.0-10.0); NEUT # 1.7 K/uL (1.8-7.0); NEUT % 52.7 % (50.0-75.0); NRBC % 0.3 % (0.0-2.0); RBC 4.59 Mil/uL (4.40-5.90)
[2018-11-29 08:12] LABS: WHITE BLOOD COUNT 3.3 K/uL (4.8-10.8)
[2018-11-29] MEDS: Fluticasone-Vilanterol 100/25mcg Diskus INH SCH (08:32)
[2018-11-29] MEDS: Docusate-Senna 50 mg-8.6 mg Tab PO SCH (09:14)
[2018-11-29] MEDS: Potassium Chloride 20 mEq ER Tab PO SCH (09:15)
[2018-11-29] MEDS: Cilostazol 50 mg Tab UD PO SCH (09:15)
[2018-11-29] MEDS: Metoprolol Succinate 12.5 mg XL Tab PO SCH (09:15)
[2018-11-29 09:16] VITALS: BP 140/77
[2018-11-29] MEDS: Nystatin 100,000 Units/ml Oral Susp 5 ml UD PO SCH ×2 (11:00→14:21)
--- NOTE | 2018-11-29 14:40 | CP.PCM.PN ---
Subjective - Date & Time of Evaluation Date of Evaluation: 11/29/18 Time of Evaluation: 14:38 - Subjective Subjective: Patient is seen and examined No events overnight Objective - Vital Signs/Intake and Output Vital Signs (last 24 hours): Temp Pulse Resp BP Pulse Ox 98.5 F 111 H 20 140/77 97 11/29/18 07:25 11/29/18 07:25 11/29/18 07:25 11/29/18 09:15 11/29/18 07:25 Intake and Output: 11/29/18 11/29/18 06:59 18:59 Intake Total 200 Output Total 500 Balance -300 - Medications Medications: Current Medications Acetaminophen (Tylenol 325mg Tab) 650 mg PO Q6 PRN PRN Reason: fever/pain Albuterol/Ipratropium (Duoneb 3 Mg/0.5 Mg (3 Ml) Ud) 3 ml INH RQ6 PRN PRN Reason: Shortness of Breath Aspirin (Ecotrin) 81 mg PO DAILY [facility] Last Admin: 11/29/18 09:14 Dose: 81 mg Cilostazol (Pletal) 50 mg PO BID [facility] Last Admin: 11/29/18 09:15 Dose: 50 mg Clopidogrel Bisulfate (Plavix) 75 mg PO DAILY [facility] Last Admin: 11/29/18 09:14 Dose: 75 mg Dextrose (Dextrose 50% Inj) 0 ml IV STAT PRN; Protocol PRN Reason: Hypoglycemia Protocol Dextrose (Glutose 15) 0 gm PO ONCE PRN; Protocol PRN Reason: Hypoglycemia Protocol Duloxetine HCl (Cymbalta) 60 mg PO DAILY [facility] Last Admin: 11/29/18 09:14 Dose: 60 mg Famotidine (Pepcid) 40 mg PO DAILY [facility] Last Admin: 11/29/18 09:15 Dose: 40 mg Fluticasone/Vilanterol (Breo Ellipta 100-25 Mcg Inh) 1 puff INH RQD [facility] Last Admin: 11/29/18 08:32 Dose: 1 puff Furosemide (Lasix) 20 mg IVP Q12 [facility] Last Admin: 11/29/18 09:15 Dose: 20 mg Gabapentin (Neurontin) 100 mg PO BID [facility] Last Admin: 11/29/18 09:15 Dose: 100 mg Glucagon (Glucagen Diagnostic Kit) 0 mg IM STAT PRN; Protocol PRN Reason: Hypoglycemia Protocol Heparin Sodium (Porcine) (Heparin) 5,000 units SC Q12 [facility] Last Admin: 11/29/18 09:15 Dose: 5,000 units Dextrose (Dextrose 5% In Water 1000 Ml) 1,000 mls @ 0 mls/hr IV .Q0M PRN; Protocol PRN Reason: Hypoglycemia Protocol Insulin Glargine (Lantus) 10 unit SC HS [facility] Insulin Human Regular (Novolin R) 0 unit SC ACHS [facility]; Protocol Last Admin: 11/29/18 12:23 Dose: 2 unit Losartan Potassium (Cozaar) 25 mg PO DAILY [facility] Last Admin: 11/29/18 09:15 Dose: 25 mg Metoprolol Succinate (Toprol Xl) 12.5 mg PO DAILY [facility] Last Admin: 11/29/18 09:15 Dose: 12.5 mg Nystatin (Nystatin Oral Susp) 5 ml PO QID [facility] Last Admin: 11/29/18 14:21 Dose: 5 ml Potassium Chloride (K-Dur 20 Meq Er Tab) 20 meq PO DAILY [facility] Last Admin: 11/29/18 09:15 Dose: 20 meq Rosuvastatin Calcium (Crestor) 10 mg PO HS [facility] Last Admin: 11/28/18 21:44 Dose: 10 mg Senna/Docusate Sodium (Senokot S 50 Mg-8.6 Mg) 1 tab PO DAILY [facility] Last Admin: 11/29/18 09:14 Dose: 1 tab - Labs Labs: 11/29/18 07:42 11/29/18 07:42 PT 13.8 SECONDS (9.7-12.2) H 11/27/18 08:03 INR 1.3 11/27/18 08:03 APTT 38 SECONDS (21-34) H 11/22/18 12:56 - Head Exam Head Exam: NORMAL INSPECTION - Eye Exam Eye Exam: Normal appearance - ENT Exam ENT Exam: Mucous Membranes Moist - Respiratory Exam Respiratory Exam: Clear to Ausculation Bilateral - Cardiovascular Exam Cardiovascular Exam: REGULAR RHYTHM, +S1, +S2 - GI/Abdominal Exam GI & Abdominal Exam: Soft, Normal Bowel Sounds - Extremities Exam Extremities Exam: Normal Inspection Assessment and Plan (1) Obstructive sleep apnea (adult) (pediatric) Status: Acute (2) Asthma Status: Acute (3) CHF (congestive heart failure) Status: Acute (4) Oral candidiasis Status: Acute - Assessment and Plan (Free Text) Plan: Nystatin swish and swallow Breo Ellipta Duonebs CPAP at night Lasix DVT/GI prophalaxis
--- NOTE | 2018-11-29 17:11 | CP.PCM.DIS ---
<ZanArvind - Last Filed: 11/29/18 17:07> Provider - Provider Date of Admission: 11/24/18 11:26 Attending physician: Adalberto White MD Consults: 11/22/18 16:03 Cardiology Consult Routine Comment: Consulting Provider: Rikki Yan Consulting Physician: Rikki Yan Reason for Consult: dyspnea, hx of diastolic chf, CAD with cabg and stent 11/22/18 18:05 Pulmonology Consult Routine Comment: Consulting Provider: Erika Akers Consulting Physician: Erika Akers Reason for Consult: asthma, [place] 11/24/18 13:05 Inpatient TELECOM SALES CONSULTANT Core Measures Referral Routine Comment: Physician Instructions: Reason For Exam: CHF 11/29/18 06:40 Cardiology Consult Routine Comment: Please notify Dr. Ledesma Consulting Provider: Mariana Ledesma Consulting Physician: Mariana Ledesma Reason for Consult: Cardiology coverage. I am out of town till December 08 11/29/18 09:28 [employer] Identity Management Consultant [Case Management Referral] Routine Comment: Physician Instructions: Reason For Exam: is plavix or brilinta covered with pt? Reason for Referral: Discharge Planning Time Spent in preparation of Discharge (in minutes): 35 Diagnosis - Discharge Diagnosis (1) NSTEMI (non-ST elevated myocardial infarction) Status: Acute (2) Asthma Status: Acute (3) CHF (congestive heart failure) Status: Acute (4) Diabetes mellitus Status: Chronic (5) HTN (hypertension) Status: Chronic (6) Hyperlipidemia Status: Chronic Hospital Course - Lab Results Lab Results: Micro Results 11/26/18 13:25 Blood Blood Culture - Preliminary NO GROWTH AFTER 3 DAYS 11/26/18 11:20 Blood Blood Culture - Preliminary NO GROWTH AFTER 3 DAYS 11/27/18 01:54 Sputum Gram Stain - Final 11/27/18 01:54 Sputum Sputum Culture - Final NORMAL ORAL JOSH 11/26/18 11:40 Urine,Clean Catch Urine Culture - Final Gram Negative Nirmal Most Recent Lab Values WBC 3.3 K/uL (4.8-10.8) L 11/29/18 07:42 RBC 4.59 Mil/uL (4.40-5.90) 11/29/18 07:42 Hgb 11.3 g/dL (12.0-18.0) L 11/29/18 07:42 Hct 35.4 % (35.0-51.0) 11/29/18 07:42 MCV 77.0 fL (80.0-94.0) L 11/29/18 07:42 MCH 24.7 pg (27.0-31.0) L 11/29/18 07:42 MCHC 32.1 g/dL (33.0-37.0) L 11/29/18 07:42 RDW 17.0 % (11.5-14.5) H 11/29/18 07:42 Plt Count 142 K/uL (130-400) 11/29/18 07:42 MPV 8.4 fL (7.2-11.7) 11/29/18 07:42 Neut % (Auto) 52.7 % (50.0-75.0) 11/29/18 07:42 Lymph % (Auto) 28.8 % (20.0-40.0) 11/29/18 07:42 [place] % (Auto) 15.9 % (0.0-10.0) H 11/29/18 07:42 Eos % (Auto) 2.1 % (0.0-4.0) 11/29/18 07:42 Baso % (Auto) 0.5 % (0.0-2.0) 11/29/18 07:42 Neut # (Auto) 1.7 K/uL (1.8-7.0) L 11/29/18 07:42 Lymph # (Auto) 0.9 K/uL (1.0-4.3) L 11/29/18 07:42 [place] # (Auto) 0.5 K/uL (0.0-0.8) 11/29/18 07:42 Eos # (Auto) 0.1 K/uL (0.0-0.7) 11/29/18 07:42 Baso # (Auto) 0.0 K/uL (0.0-0.2) 11/29/18 07:42 Neutrophils % (Manual) 51 % (50-75) 11/27/18 08:03 Band Neutrophils % 3 % (0-2) H 11/27/18 08:03 Lymphocytes % (Manual) 17 % (20-40) L 11/27/18 08:03 Monocytes % (Manual) 28 % (0-10) H 11/27/18 08:03 Basophils % (Manual) 1 % (0-2) 11/27/18 08:03 Toxic Granulation Present 11/25/18 07:02 Platelet Estimate Normal (NORMAL) 11/27/18 08:03 Large Platelets Present 11/26/18 08:36 Giant Platelets Present 11/26/18 08:36 Polychromasia Slight 11/26/18 08:36 Hypochromasia (manual) Slight 11/26/18 08:36 Anisocytosis (manual) Moderate 11/26/18 08:36 Microcytosis (manual) Slight 11/26/18 08:36 PT 13.8 SECONDS (9.7-12.2) H 11/27/18 08:03 INR 1.3 11/27/18 08:03 APTT 38 SECONDS (21-34) H 11/22/18 12:56 Sodium 134 mmol/L (132-148) 11/29/18 07:42 Potassium 3.9 mmol/L (3.6-5.2) 11/29/18 07:42 Chloride 102 mmol/L (98-107) 11/29/18 07:42 Carbon Dioxide 27 mmol/L (22-30) 11/29/18 07:42 Anion Gap 8 (10-20) L 11/29/18 07:42 BUN 19 mg/dL (9-20) 11/29/18 07:42 Creatinine 0.7 mg/dL (0.8-1.5) L 11/29/18 07:42 Est GFR ( Amer) > 60 11/29/18 07:42 Est GFR (Non-Af Amer) > 60 11/29/18 07:42 POC Glucose (mg/dL) 192 mg/dL (65-110) H 11/28/18 18:19 Random Glucose 109 mg/dL (75-110) 11/29/18 07:42 Calcium 8.5 mg/dl (8.6-10.4) L 11/29/18 07:42 Phosphorus 3.0 mg/dL (2.5-4.5) 11/29/18 07:42 Magnesium 1.9 mg/dL (1.6-2.3) 11/29/18 07:42 Total Bilirubin 0.6 mg/dL (0.2-1.3) 11/29/18 07:42 AST 56 U/L (17-59) 11/29/18 07:42 ALT 22 U/L (21-72) 11/29/18 07:42 Alkaline Phosphatase 77 U/L (38-126) 11/29/18 07:42 Total Creatine Kinase 46 U/L (55-170) L 11/23/18 01:01 CK-MB (Mass) 1.73 ng/mL (0.0-3.38) 11/23/18 01:01 Troponin I 0.1170 ng/mL (0.00-0.120) 11/23/18 01:01 NT-Pro-B Natriuret Pep 1480 pg/mL (0-900) H 11/25/18 07:02 Total Protein 6.3 g/dL (6.3-8.3) 11/29/18 07:42 Albumin 3.3 g/dL (3.5-5.0) L 11/29/18 07:42 Globulin 3.0 gm/dL (2.2-3.9) 11/29/18 07:42 Albumin/Globulin Ratio 1.1 (1.0-2.1) 11/29/18 07:42 Triglycerides 92 mg/dL (0-149) 11/23/18 07:12 Cholesterol 112 mg/dL (0-199) 11/23/18 07:12 LDL Cholesterol Direct 72 mg/dL (0-129) 11/23/18 07:12 HDL Cholesterol 43 mg/dL (30-70) 11/23/18 07:12 Procalcitonin 0.07 NG/ML (0.19-0.49) L 11/26/18 11:20 Urine Color Yellow (YELLOW) 11/26/18 11:40 Urine Clarity Clear (Clear) 11/26/18 11:40 Urine pH 6.0 (5.0-8.0) 11/26/18 11:40 Ur Specific [place] 1.011 (1.003-1.030) 11/26/18 11:40 Urine Protein Negative mg/dL (NEGATIVE) 11/26/18 11:40 Urine Glucose (UA) 3+ mg/dL (Normal) H 11/26/18 11:40 Urine Ketones Negative mg/dL (NEGATIVE) 11/26/18 11:40 Urine Blood Negative (NEGATIVE) 11/26/18 11:40 Urine Nitrate Negative (NEGATIVE) 11/26/18 11:40 Urine Bilirubin Negative (NEGATIVE) 11/26/18 11:40 Urine Urobilinogen Normal mg/dL (0.2-1.0) 11/26/18 11:40 Ur Leukocyte Esterase Neg Kelly/uL (Negative) 11/26/18 11:40 Urine WBC (Auto) 1 /hpf (0-5) 11/26/18 11:40 Urine RBC (Auto) < 1 /hpf (0-3) 11/26/18 11:40 Hyaline Casts 0-2 /lpf (0-2) 11/26/18 11:40 - Hospital Course Hospital Course: On admission: Patient is a 58 year old Male with pmhx of CAD with CABG 2003, stent 2010, DM2, PVD, Hyperlipidemia, angina, HTN, gastritis, asthma, [place] that came to the ED for shortness of breath, chest pain, and abdomen enlargement and pain. He describes SOB as dyspnea on exertion after walking for 1/2 a block, having difficulty catching his breath. He denies SOB at rest. It has been worsening over the past 1 week. His chest pain has been present for 1 week. He describes the pain as sharp, localized to the left of the sternum with no radiation of pain, and is worsened by palpation of the area, and when he takes deep breaths. Patient noticed his abdomen enlarging with worsened pain over the past 3 days. When asked to locate the pain, he points to his LLQ with no radiation of the pain. He describes the pain as "pressure" and "stretching." He states that he has normal BM's, last BM being this morning with soft stool and no blood. He endorses waking up with the bed wet for the past 3 days but denies any incontinence while awake. He also endorses lower extremity swelling, worsening over the past week. He admits to dizziness at times but is inconsistent as to when he has it and only says "sometimes." Denies fever, chills, n/v/d, hematochezia, melena, falls, syncope, blurry vision, headache. Endorses Orthopnea for many years and uses 1 pillow. He endorses waking up gasping for air multiple times per night is not always compliant with his CPAP. He endorses numbness and tingling of the left hand when he sleeps. Recently diagnosed (09/2018) with multifocal pneumonia and treated. Patient saw his acura sales consultant Dr. Lebron approximated 4 weeks ago and was advised to use Breo and Albuterol He denies using the inhaler when dyspnea is triggered. Recently saw his cardiology, 2 weeks ago, who did not change any medications. Hospital course: For management of chest pain and dyspnea on exertion secondary to CHF, pt was given ASA, Lasix, Toprol, Cozaar, and Crestor, with improvement of pulmonary edema. Dr. Yan from Cardiology was consulted. Cardiac panel was ordered, and results came back significant NSTEMI. Echocardiogram was performed on Nov 23, which noted normal systolic function but signs of aortic regurgitation. Catheterization was performed on Nov 24, which noted the following results: LAD proximal 100%, LCX mid stent 100%, RCA 100%, SVG to OM 80% EF 55%, and aortogram showing signs suggestive of aortic insufficiency. JUSTIN was ordered on Nov 25 to confirm aortic regurgitation. Pt was sent to [facility] on Nov 28 for PCI (2 WILFRIDO stents). After PCI, pt was advised to take the following medication: Plavix 75 daily for 1 year, ASA, Statin, ciostazol, beta blockers, ACEi for life, and Lasix 20 mg PO, KCL 10mq PO for 2 weeks. His chest pain has improved since his admission. For his asthma, Dr. Akers (pulmonology) was consulted. Pt was advised to maintain Tx course of Breo Ellipta and Duoneb. He was also advised to use CPAP, but he was noncompliant in using it. He has had fewer episodes of SOB since his admission. For his abdominal pain, he was advised to maintain [place] daily during his stay in hospital. He has maintained normal BMs and he has no problem passing gas. His abdominal pain has been improving over the course of his hospital. On Nov 25, pt had a fever of 101 F. Blood cultures, UA, urine culture, sputum culture, and procalcitonin were ordered. UA showed clear urine, but 3+ for glucose. For blood culture, there was no growth after 72 hours. Sputum culture provided no growth after 72 hours. Clean catch urine showed gram negative nirmal, and pt was put on Rocephin for 3 days. Pt's symptoms have been improving over the course of his hospital stay. This is a summary of the hospital course. Please see EMR for full details. Discharge Exam - Head Exam Head Exam: NORMAL INSPECTION - Eye Exam Eye Exam: EOMI, Normal appearance - ENT Exam ENT Exam: Mucous Membranes Moist - Respiratory Exam Respiratory Exam: Clear to PA & Lateral. absent: Rales, Rhonchi, Wheezes, Respiratory Distress - Cardiovascular Exam Cardiovascular Exam: REGULAR RHYTHM, +S1, +S2, +S4 (s3) - GI/Abdominal Exam GI & Abdominal Exam: Hernia, Normal Bowel Sounds, Soft. absent: Firm, Guarding, Rebound, Tenderness Additional comments: (+) ecchymosis to the left groin, (cath insertion site) - Back Exam Back exam: NORMAL INSPECTION. absent: CVA tenderness (L), CVA tenderness (R) - Neurological Exam Neurological exam: Alert, Normal Gait, Oriented x3 - Psychiatric Exam Psychiatric exam: Normal Affect, Normal Mood - Skin Skin Exam: Dry, Intact, Normal Color, Warm Discharge Plan - Discharge Medications Prescriptions: Albuterol HFA [Ventolin HFA 90 mcg/actuation (8 g)] 2 puff IH [id number] PRN #1 inhaler PRN Reason: Shortness Of Breath Aspirin [Ecotrin] 81 mg PO DAILY #30 tabec Atorvastatin [Lipitor] 20 mg PO DAILY #30 tab Canagliflozin [Invokana] 300 mg PO DAILY #30 tablet Cilostazol [Pletal] 50 mg PO BID #60 tab Clopidogrel [Plavix] 75 mg PO DAILY #30 tab DULoxetine [Cymbalta] 60 mg PO DAILY #30 ecc Famotidine [Pepcid] 40 mg PO DAILY #30 tab Fluticasone/Vilanterol 100/25 [Breo Ellipta 100-25 MCG INH] 1 puff INH RQD #1 pkt Furosemide [Lasix] 20 mg PO DAILY #30 tab Gabapentin [Neurontin] 100 mg PO BID #60 cap Losartan [Cozaar] 25 mg PO DAILY #30 tab metFORMIN [glucOPHAGE] 500 mg PO DAILY #30 tab Metoprolol Succinate XL [Toprol XL] 12.5 mg PO DAILY #30 tab Nystatin [Nystatin Oral Susp] 5 ml PO QID #450 ml Nystatin [Nystatin Oral Susp] 5 ml PO Q6H #420 ml Potassium Chloride 10 meq PO DAILY #30 tab.er.prt SITagliptin [Januvia] 100 mg PO DAILY 30 Days tab - Follow Up Plan Condition: GOOD Disposition: HOME/ ROUTINE Instructions: Heart Healthy Diet, Diabetes Exchange Diet, Heart Failure, Adult (DC), Diabetes Diet , Chest Pain (DC), Albuterol, Atorvastatin, Fluticasone and Vilanterol, Cilostazol, Duloxetine Additional Instructions: Pt is medically stable for discharge home as per Dr. Ashwin Phelps. Prescriptions given to be given to pt: Aspirin 81 mg 1 tab PO once daily at 8 am, #30 Atorvastatin 20 mg 1 tab PO once daily at 8 pm, #30 Metoprolol succinate 12.5 mg 1 tab PO once daily at 8 am, #30 Losartan 25 mg 1 tab PO once daily at 8 pm, #30 Furosemide 20 mg 1 tab PO once daily at 2 pm, #14. To be taken for 14 days Cilastazol 50 mg 1 tab PO twice daily at 8 am and 8 pm, #60 Clopidogrel 75 mg, 1 tab PO once daily at 8 am, #30 Potassium chloride 10 mEq 1 tab PO once daily at 8 am, #14. To be taken for 14 days. Duloxetine 60 mg 1 tab PO once daily at 8 am, #30 Breo Ellipta 100/25 mg, 1 inhalation by mouth once daily at 8 am, #1 Albuterol 90 mcg/actuation, 2 inhalation by mouth every 6 hours ONLY NEEDED for shortness of breath, #1 Pepcid 40 mg 1 tab PO once daily at 8 am, #30 Invokana 300 mg 1 tab PO once daily with breakfast at 8 am, #30 Januvia 100 mg 1 tab PO once daily ith lunch at 2 pm, #30 Metformin 500 mg 1 tab PO once daily with dinner at 8 pm, #30 Gabapentin 100 mg 1 tab PO twice daily at 8 am and 8 pm, #60 1. Have prescriptions filled at your pharmacy on your way home from the hospital. 2. Schedule follow up appointment with Client Services Representative Dr. Yan for december 22, 2018 by calling his office [phone]. 3. Schedule follow up appointment with Shingle Cutter Dr. Akers by calling his office [phone] for appointment in 7 days. 4. Schedule appointment with your primary care physician by Dr. Julia Phelps by calling [phone] for appointment in 7 days. 5. Please use your CPAP as instructed. If symptoms worsen, please go to the Emergency Department for further evaluation. Instructions explained to the pt, who understands and agrees with discharge plan. Referrals: Rikki Yan MD [Staff Provider] - Erika Akers MD [Staff Provider] - Adrián Mcgrath MD [Staff Provider] - <Edi Phelps J - Last Filed: 11/29/18 17:57> Provider - Provider Date of Admission: 11/24/18 11:26 Attending physician: Adalberto White MD Consults: 11/22/18 16:03 Cardiology Consult Routine Comment: Consulting Provider: Rikki Yan Consulting Physician: Rikki Yan Reason for Consult: dyspnea, hx of diastolic chf, CAD with cabg and stent 11/22/18 18:05 Pulmonology Consult Routine Comment: Consulting Provider: Erika Akers Consulting Physician: Erika Akers Reason for Consult: asthma, [place] 11/24/18 13:05 Inpatient TELECOM SALES CONSULTANT Core Measures Referral Routine Comment: Physician Instructions: Reason For Exam: CHF 11/29/18 06:40 Cardiology Consult Routine Comment: Please notify Dr. Ledesma Consulting Provider: Mariana Ledesma Consulting Physician: Mariana Ledesma Reason for Consult: Cardiology coverage. I am out of town till December 08 11/29/18 09:28 [employer] Identity Management Consultant [Case Management Referral] Routine Comment: Physician Instructions: Reason For Exam: is plavix or brilinta covered with pt? Reason for Referral: Discharge Planning Hospital Course - Lab Results Lab Results: Micro Results 11/26/18 13:25 Blood Blood Culture - Preliminary NO GROWTH AFTER 3 DAYS 11/26/18 11:20 Blood Blood Culture - Preliminary NO GROWTH AFTER 3 DAYS 11/27/18 01:54 Sputum Gram Stain - Final 11/27/18 01:54 Sputum Sputum Culture - Final NORMAL ORAL JOSH 11/26/18 11:40 Urine,Clean Catch Urine Culture - Final Gram Negative Nirmal Most Recent Lab Values WBC 3.3 K/uL (4.8-10.8) L 11/29/18 07:42 RBC 4.59 Mil/uL (4.40-5.90) 11/29/18 07:42 Hgb 11.3 g/dL (12.0-18.0) L 11/29/18 07:42 Hct 35.4 % (35.0-51.0) 11/29/18 07:42 MCV 77.0 fL (80.0-94.0) L 11/29/18 07:42 MCH 24.7 pg (27.0-31.0) L 11/29/18 07:42 MCHC 32.1 g/dL (33.0-37.0) L 11/29/18 07:42 RDW 17.0 % (11.5-14.5) H 11/29/18 07:42 Plt Count 142 K/uL (130-400) 11/29/18 07:42 MPV 8.4 fL (7.2-11.7) 11/29/18 07:42 Neut % (Auto) 52.7 % (50.0-75.0) 11/29/18 07:42 Lymph % (Auto) 28.8 % (20.0-40.0) 11/29/18 07:42 [place] % (Auto) 15.9 % (0.0-10.0) H 11/29/18 07:42 Eos % (Auto) 2.1 % (0.0-4.0) 11/29/18 07:42 Baso % (Auto) 0.5 % (0.0-2.0) 11/29/18 07:42 Neut # (Auto) 1.7 K/uL (1.8-7.0) L 11/29/18 07:42 Lymph # (Auto) 0.9 K/uL (1.0-4.3) L 11/29/18 07:42 [place] # (Auto) 0.5 K/uL (0.0-0.8) 11/29/18 07:42 Eos # (Auto) 0.1 K/uL (0.0-0.7) 11/29/18 07:42 Baso # (Auto) 0.0 K/uL (0.0-0.2) 11/29/18 07:42 Neutrophils % (Manual) 51 % (50-75) 11/27/18 08:03 Band Neutrophils % 3 % (0-2) H 11/27/18 08:03 Lymphocytes % (Manual) 17 % (20-40) L 11/27/18 08:03 Monocytes % (Manual) 28 % (0-10) H 11/27/18 08:03 Basophils % (Manual) 1 % (0-2) 11/27/18 08:03 Toxic Granulation Present 11/25/18 07:02 Platelet Estimate Normal (NORMAL) 11/27/18 08:03 Large Platelets Present 11/26/18 08:36 Giant Platelets Present 11/26/18 08:36 Polychromasia Slight 11/26/18 08:36 Hypochromasia (manual) Slight 11/26/18 08:36 Anisocytosis (manual) Moderate 11/26/18 08:36 Microcytosis (manual) Slight 11/26/18 08:36 PT 13.8 SECONDS (9.7-12.2) H 11/27/18 08:03 INR 1.3 11/27/18 08:03 APTT 38 SECONDS (21-34) H 11/22/18 12:56 Sodium 134 mmol/L (132-148) 11/29/18 07:42 Potassium 3.9 mmol/L (3.6-5.2) 11/29/18 07:42 Chloride 102 mmol/L (98-107) 11/29/18 07:42 Carbon Dioxide 27 mmol/L (22-30) 11/29/18 07:42 Anion Gap 8 (10-20) L 11/29/18 07:42 BUN 19 mg/dL (9-20) 11/29/18 07:42 Creatinine 0.7 mg/dL (0.8-1.5) L 11/29/18 07:42 Est GFR ( Amer) > 60 11/29/18 07:42 Est GFR (Non-Af Amer) > 60 11/29/18 07:42 POC Glucose (mg/dL) 192 mg/dL (65-110) H 11/28/18 18:19 Random Glucose 109 mg/dL (75-110) 11/29/18 07:42 Calcium 8.5 mg/dl (8.6-10.4) L 11/29/18 07:42 Phosphorus 3.0 mg/dL (2.5-4.5) 11/29/18 07:42 Magnesium 1.9 mg/dL (1.6-2.3) 11/29/18 07:42 Total Bilirubin 0.6 mg/dL (0.2-1.3) 11/29/18 07:42 AST 56 U/L (17-59) 11/29/18 07:42 ALT 22 U/L (21-72) 11/29/18 07:42 Alkaline Phosphatase 77 U/L (38-126) 11/29/18 07:42 Total Creatine Kinase 46 U/L (55-170) L 11/23/18 01:01 CK-MB (Mass) 1.73 ng/mL (0.0-3.38) 11/23/18 01:01 Troponin I 0.1170 ng/mL (0.00-0.120) 11/23/18 01:01 NT-Pro-B Natriuret Pep 1480 pg/mL (0-900) H 11/25/18 07:02 Total Protein 6.3 g/dL (6.3-8.3) 11/29/18 07:42 Albumin 3.3 g/dL (3.5-5.0) L 11/29/18 07:42 Globulin 3.0 gm/dL (2.2-3.9) 11/29/18 07:42 Albumin/Globulin Ratio 1.1 (1.0-2.1) 11/29/18 07:42 Triglycerides 92 mg/dL (0-149) 11/23/18 07:12 Cholesterol 112 mg/dL (0-199) 11/23/18 07:12 LDL Cholesterol Direct 72 mg/dL (0-129) 11/23/18 07:12 HDL Cholesterol 43 mg/dL (30-70) 11/23/18 07:12 Procalcitonin 0.07 NG/ML (0.19-0.49) L 11/26/18 11:20 Urine Color Yellow (YELLOW) 11/26/18 11:40 Urine Clarity Clear (Clear) 11/26/18 11:40 Urine pH 6.0 (5.0-8.0) 11/26/18 11:40 Ur Specific [place] 1.011 (1.003-1.030) 11/26/18 11:40 Urine Protein Negative mg/dL (NEGATIVE) 11/26/18 11:40 Urine Glucose (UA) 3+ mg/dL (Normal) H 11/26/18 11:40 Urine Ketones Negative mg/dL (NEGATIVE) 11/26/18 11:40 Urine Blood Negative (NEGATIVE) 11/26/18 11:40 Urine Nitrate Negative (NEGATIVE) 11/26/18 11:40 Urine Bilirubin Negative (NEGATIVE) 11/26/18 11:40 Urine Urobilinogen Normal mg/dL (0.2-1.0) 11/26/18 11:40 Ur Leukocyte Esterase Neg Kelly/uL (Negative) 11/26/18 11:40 Urine WBC (Auto) 1 /hpf (0-5) 11/26/18 11:40 Urine RBC (Auto) < 1 /hpf (0-3) 11/26/18 11:40 Hyaline Casts 0-2 /lpf (0-2) 11/26/18 11:40 Attending/Attestation - Attestation I have personally seen and examined this patient.: Yes I have fully participated in the care of the patient.: Yes I have reviewed all pertinent clinical information, including history, physical exam and plan: Yes Notes (Text): 11/29/18 17:50 Patient was seen and examined for the first time by me at 11:00 AM Care of this patient and all discharge orders/medications were gone over in detail with resident Dr. Zuluaga. Spoke with patient at length about his discharge instructions as well as confirmed his home diabetes medications with him. Patient hesitant to leave as he stated he wanted to leave tomorrow instead. Please also note that the Nystatin Rx was called into his [facility] pharmacy on [facility] and I spoke with the pharmacist at 5:55 PM and also transmitted the Rx electronically at her request. Pharmacist will call patient to citrus picker as he left without this prescription at the time of his discharge Edi Phelps D.O.
[2018-11-30 09:10] VITALS: O2SAT 96
== END 2018-11-29 16:00 | disposition home or self-care (01) | DRG 280 ==
LOC: C.ER 12:11 → C.6T 15:29 → OBSVTOIN 11-24 11:26
PROVIDERS: ADMIT Internal Medicine; ATTEND Internal Medicine
PROC: 4A023N7 Measurement of Cardiac Sampling and Pressure, Left Heart, Percutaneous Approach (ICD-10-PCS; principal; 2018-11-24)
PROC: B2111ZZ Fluoroscopy of Multiple Coronary Arteries using Low Osmolar Contrast (ICD-10-PCS; 2018-11-24)
PROC: B3101ZZ Fluoroscopy of Thoracic Aorta using Low Osmolar Contrast (ICD-10-PCS; 2018-11-24)
DX: I21.4 Non-ST elevation (NSTEMI) myocardial infarction (principal); I50.33 Acute on chronic diastolic (congestive) heart failure; E78.5 Hyperlipidemia, unspecified; I25.119 Atherosclerotic heart disease of native coronary artery with unspecified angina pectoris; I25.82 Chronic total occlusion of coronary artery; G47.33 Obstructive sleep apnea (adult) (pediatric); I35.1 Nonrheumatic aortic (valve) insufficiency; I70.0 Atherosclerosis of aorta; J45.909 Unspecified asthma, uncomplicated; Z79.02 Long term (current) use of antithrombotics/antiplatelets; K59.00 Constipation, unspecified; Z91.19 Patient's noncompliance with other medical treatment and regimen; K57.30 Diverticulosis of large intestine without perforation or abscess without bleeding; K40.90 Unilateral inguinal hernia, without obstruction or gangrene, not specified as recurrent; I11.0 Hypertensive heart disease with heart failure; E11.40 Type 2 diabetes mellitus with diabetic neuropathy, unspecified; Z87.01 Personal history of pneumonia (recurrent)

== ENCOUNTER 2018-12-25 14:20 | Inpatient (IN) | payer MEDICARE ==
[2018-12-25 14:21] VITALS: BMI 27.6
--- NOTE | 2018-12-25 16:16 | C.PDOC ---
History Of Present Illness 58 year old male presents to the emergency department with complaints of abdominal bloating, lower extremity edema, worsening for the past week. Patient was recently inpatient in November 2018 where he had 2 stents placed and a cardi ac echo which showed normal LV function with severe aortic regurgitation. Patient claims that he does not take Lasix at home. Time Seen by Provider: 12/25/18 16:06 Chief Complaint (Nursing): Shortness Of Breath History Per: Patient History/Exam Limitations: no limitations Onset/Duration Of Symptoms: Other (last week) Current Symptoms Are (Timing): Still Present Quality: Other (bloating) Associated Symptoms: Ankle/Leg Swelling, Other (abdominal bloating). denies: Fever, Chills Reports Recently: Hospitalized (November) Past Medical History Reviewed: Historical Data, Nursing Documentation, Vital Signs Vital Signs: Last Vital Signs Temp 98.9 F 12/25/18 14:31 Pulse 82 12/25/18 14:31 Resp 20 12/25/18 14:31 BP 134/62 12/25/18 14:31 Pulse Ox 95 12/25/18 14:31 - Medical History PMH: Anemia, Depression, Diabetes, Gastritis, HTN, Hypercholesterolemia, Hyperlipidemia, Pneumonia Denies: Chronic Kidney Disease Surgical History: CABG (2003), Coronary Stent (2010), Endoscopy - [facility] Procedures FLUOROSCOPY OF MULT COR ART USING L OSM CONTRAST (11/24/18) FLUOROSCOPY OF THORACIC AORTA USING LOW OSMOLAR CONTRAST (11/24/18) MEASURE OF CARDIAC SAMPL & PRESSURE, L HEART, PERC APPROACH (11/24/18) Family History: States: No Known Family Hx - Social History Hx Tobacco Use: No Hx Alcohol Use: No Hx Substance Use: No - Immunization History Hx Tetanus Toxoid Vaccination: No Hx Influenza Vaccination: Yes Hx Pneumococcal Vaccination: No Review Of Systems Except As Marked, All Systems Reviewed And Found Negative. Constitutional: Negative for: Fever, Chills Cardiovascular: Negative for: Chest Pain Respiratory: Negative for: Cough, Shortness of Breath Gastrointestinal: Positive for: Abdominal Pain (bloating). Negative for: N ausea, Vomiting, Diarrhea Musculoskeletal: Positive for: Leg Pain (lower extremity edema) Physical Exam - Physical Exam Appears: Non-toxic, No Acute Distress Skin: Normal Color, Warm, Dry Head: Atraumatic, Normacephalic Eye(s): bilateral: Normal Inspection, PERRL, EOMI Oral Mucosa: Moist Neck: Normal, Supple Chest: Symmetrical, No Tenderness, Other (midline sternotomy scar) Cardiovascular: Rhythm Regular, No Murmur, JVD Respiratory: Rales, No Rhonchi, No Wheezing Gastrointestinal/Abdominal: Soft, No Tenderness, Other (globus) Extremity: Normal ROM, Swelling (pitting edema lower extremity), Other (saphenous vein graft scars to the left leg) Neurological/Psych: Oriented x3, Normal Speech, Normal Cognition ED Course And Treatment - Laboratory Results Result Diagrams: 12/25/18 16:43 12/25/18 16:43 Lab Interpretation: Abnormal (+ leukocytosis) ECG: Interpreted By Me ECG Rhythm: Sinus Rhythm O2 Sat by Pulse Oximetry: 95 (RA) Pulse Ox Interpretation: Normal - Radiology CXR: Interpreted by Me CXR Interpretation: Yes: Heart Size, Other (+ CHF) Progress Note: lasix 40 IV Reevaluation Time: 17:36 Reassessment Condition: Improved - Physician Consult Information Outcome Of Conversation: 1730: dw Dr. Diaz- Hospitalist [employer] covering pts for charmaine Alfaro to admit. Medical Decision Making Medical Decision Making: Plan: EKG Chemistry Hematology CXR Lasix 40mg IVP Urinalysis CHF abd distention of ? etiology, prob related to CHF 11/28: Card Echo- normal EJF but severe AR Consult Dr. Yan- 2 stents placed 11/28 Disposition Doctor Will See Patient In The: Hospital Counseled Patient/Family Regarding: Studies Performed, Diagnosis - Disposition Disposition: HOSPITALIZED Disposition Time: 17:37 Condition: GOOD Forms: [facility] ([place]) - Clinical Impression Clinical Impression: Chronic congestive heart failure - Scribe Statement The provider has reviewed the documentation as recorded by the Scribe (Roscoe Houstonqvi) Provider Attestation: All medical record entries made by the Scribe were at my direction and personally dictated by me. I have reviewed the chart and agree that the record accurately reflects my personal performance of the history, physical exam, medical decision making, and the department course for this patient. I have also personally directed, reviewed, and agree with the discharge instructions and disposition.
[2018-12-25 16:53] LABS: MONO # 1.7 K/uL (0.0-0.8); NRBC % 0.5 % (0.0-2.0)
[2018-12-25 17:00] LABS: INR 1.5; PROTHROMBIN TIME 16.8 SECONDS (9.7-12.2)
[2018-12-25 17:12] LABS: ALB/GLOB RATIO 1.1 (1.0-2.1); ALBUMIN 3.8 g/dL (3.5-5.0); ALT/SGPT 27 U/L (21-72); AST/SGOT 96 U/L (17-59); BLOOD UREA NITROGEN 35 mg/dL (9-20); CALCIUM 9.6 mg/dl (8.6-10.4); GFR NON-AFRICAN AMERICAN 56
[2018-12-25 17:15] LABS: B-TYPE NATRIURETIC PEPTIDE 6980 pg/mL (0-900)
[2018-12-25 17:17] LABS: BASO % 0.3 % (0.0-2.0); EOS % 0.1 % (0.0-4.0); HEMOGLOBIN 10.7 g/dL (12.0-18.0); LYMPH # 1.1 K/uL (1.0-4.3); LYMPH % 6.9 % (20.0-40.0); MEAN CELL VOLUME 78.9 fL (80.0-94.0); MEAN CORPUSCULAR HEMOGLOBIN 24.4 pg (27.0-31.0); MEAN CORPUSCULAR HGB CONC 30.9 g/dL (33.0-37.0); MEAN PLATELET VOLUME 8.6 fL (7.2-11.7); MONO % 11.1 % (0.0-10.0); NEUT # 12.8 K/uL (1.8-7.0); NEUT % 81.6 % (50.0-75.0); PLATELET COUNT 165 K/uL (130-400); RBC 4.37 Mil/uL (4.40-5.90); RED CELL DISTRIBUTION WIDTH 19.8 % (11.5-14.5)
[2018-12-25 17:27] LABS: WHITE BLOOD COUNT 15.7 K/uL (4.8-10.8)
--- NOTE | 2018-12-25 18:22 | RAD ---
Date of service: 12/25/2018 PROCEDURE: CHEST RADIOGRAPH, 1 VIEW HISTORY: SOB COMPARISON: 11/26/2018. FINDINGS: LUNGS: Pulmonary vascular congestion. Confluent retrocardiac left lower lobe densities. PLEURA: Left pleural effusion inseparable from adjacent consolidative change. CARDIOVASCULAR: No aortic atherosclerotic calcification present. Cardiomegaly. OSSEOUS STRUCTURES: No significant abnormalities. VISUALIZED UPPER ABDOMEN: Normal. OTHER FINDINGS: None. IMPRESSION: Pulmonary vascular congestion. Left pleural effusion. These are progressive findings compared to prior studies. Concordant results with the preliminary interpretation rendered by the emergency department physician procedure.
[2018-12-25 19:01] LABS: SQUAMOUS EPITHIAL < 1 /hpf (0-5); URINE BACTERIA OCC (<OCC); URINE BILIRUBIN NEGATIVE (NEGATIVE); URINE BLOOD 2+ (NEGATIVE); URINE CLARITY Clear (Clear); URINE COLOR Yellow (YELLOW); URINE GLUCOSE (UA) 3+ mg/dL (Normal); URINE LEUKOCYTE ESTERASE NEG Leu/uL (Negative); URINE PROTEIN NEGATIVE (NEGATIVE); URINE UROBILINOGEN NORMAL mg/dL (0.2-1.0)
[2018-12-25] MEDS ORDERED: Dextrose 50% SYRINGE Inj (50 ml) IV PRN (19:20)
[2018-12-25] MEDS ORDERED: Glucagon Recombinant 1 mg Inj IM PRN (19:20)
--- NOTE | 2018-12-25 20:09 | CP.PCM.CON ---
History of Present Illness - History of Present Illness History of Present Illness: pt is seen and examined, full consult is dictated #[id number] 1. edmea sec to fluid overload 2. chf 3. severe AR 4.cAd s/p cabg 5. CKD-3, r/o htn nephrosclerosis restrict fluids to 1lit/day c/w lasix 40 mg ivp q 12hrs bmp daily Past Patient History - Infectious Disease Hx of Infectious Diseases: None - Past Medical History & Family History Past Medical History?: Yes - Past Social History Smoking Status: Never Smoked - CARDIAC Hx Hypercholesterolemia: Yes Hx Hypertension: Yes - PULMONARY Hx Pneumonia: Yes - NEUROLOGICAL Hx Neurological Disorder: No - HEENT Hx HEENT Problems: No - RENAL Hx Chronic Kidney Disease: No - ENDOCRINE/METABOLIC Hx Endocrine Disorders: Yes Hx Diabetes Mellitus Type 2: Yes - HEMATOLOGICAL/ONCOLOGICAL Hx Anemia: Yes - INTEGUMENTARY Hx Dermatological Problems: No - MUSCULOSKELETAL/RHEUMATOLOGICAL Hx Musculoskeletal Disorders: No Hx Falls: No - GASTROINTESTINAL Hx Gastritis: Yes - GENITOURINARY/GYNECOLOGICAL Hx Genitourinary Disorders: No - PSYCHIATRIC Hx Depression: Yes Hx Substance Use: No - SURGICAL HISTORY Hx Coronary Artery Bypass Graft: Yes (2003) Hx Coronary Stent: Yes (2010) - ANESTHESIA Hx Anesthesia: Yes Hx Anesthesia Reactions: No Hx Malignant Hyperthermia: No Meds Allergies/Adverse Reactions: Allergies Allergy/AdvReac Type Severity Reaction Status Date / Time No Known Allergies Allergy Verified 12/25/18 14:38 - Medications Medications: Current Medications Albuterol (Ventolin Hfa 90 Mcg/Actuation (8 G)) 2 puff IH RQ6 PRN PRN Reason: Shortness of Breath Aspirin (Ecotrin) 81 mg PO DAILY BRIANDA Clopidogrel Bisulfate (Plavix) 75 mg PO DAILY BRIANDA Dextrose (Dextrose 50% Inj) 0 ml IV STAT PRN; Protocol PRN Reason: Hypoglycemia Protocol Dextrose (Glutose 15) 0 gm PO ONCE PRN; Protocol PRN Reason: Hypoglycemia Protocol Duloxetine HCl (Cymbalta) 60 mg PO DAILY BRIANDA Famotidine (Pepcid) 40 mg PO DAILY BRIANDA Fluticasone/Vilanterol (Breo Ellipta 100-25 Mcg Inh) 1 puff INH RQD BRIANDA Furosemide (Lasix) 40 mg IVP BID BRIANDA Gabapentin (Neurontin) 100 mg PO BID BRIANDA Glucagon (Glucagen Diagnostic Kit) 0 mg IM STAT PRN; Protocol PRN Reason: Hypoglycemia Protocol Heparin Sodium (Porcine) (Heparin) 5,000 units SC Q8 BRIANDA Dextrose (Dextrose 5% In Water 1000 Ml) 1,000 mls @ 0 mls/hr IV .Q0M PRN; Protocol PRN Reason: Hypoglycemia Protocol Piperacillin Sod/Tazobactam Sod (Zosyn 3.375 Gm Iv Premix) 3.375 gm in 50 mls @ 100 mls/hr IVPB Q8H BRIANDA; Protocol Insulin Aspart (Novolog) 0 unit SC ACHS BRIANDA; Protocol Losartan Potassium (Cozaar) 25 mg PO DAILY BRIANDA Metoprolol Succinate (Toprol Xl) 12.5 mg PO DAILY BRIANDA Rosuvastatin Calcium (Crestor) 10 mg PO HS BRIANDA Sitagliptin Phosphate (Januvia) 100 mg PO DAILY BRIANDA Results - Vital Signs Recent Vital Signs: Last Vital Signs Temp 98.8 F 12/25/18 19:05 Pulse 81 12/25/18 19:05 Resp 18 12/25/18 19:05 BP 140/69 12/25/18 19:05 Pulse Ox 100 12/25/18 19:05 - Labs Result Diagrams: 12/25/18 16:43 12/25/18 16:43 Labs: Laboratory Results - last 24 hr 12/25/18 12/25/18 12/25/18 16:43 16:43 16:43 WBC 15.7 H D RBC 4.37 L Hgb 10.7 L Hct 34.5 L MCV 78.9 L MCH 24.4 L MCHC 30.9 L RDW 19.8 H Plt Count 165 MPV 8.6 Neut % (Auto) 81.6 H Lymph % (Auto) 6.9 L [place] % (Auto) 11.1 H Eos % (Auto) 0.1 Baso % (Auto) 0.3 Neut # (Auto) 12.8 H Lymph # (Auto) 1.1 [place] # (Auto) 1.7 H Eos # (Auto) 0.0 Baso # (Auto) 0.0 PT 16.8 H INR 1.5 APTT 43 H Sodium 133 Potassium 3.9 Chloride 101 Carbon Dioxide 25 Anion Gap 11 BUN 35 H Creatinine 1.3 Est GFR ( Amer) > 60 Est GFR (Non-Af Amer) 56 Random Glucose 138 H D Calcium 9.6 Total Bilirubin 1.5 H AST 96 H D ALT 27 Alkaline Phosphatase 104 Troponin I 0.0720 NT-Pro-B Natriuret Pep 6980 H Total Protein 7.3 Albumin 3.8 Globulin 3.5 Albumin/Globulin Ratio 1.1 Urine Color Urine Clarity Urine pH Ur Specific [place] Urine Protein Urine Glucose (UA) Urine Ketones Urine Blood Urine Nitrate Urine Bilirubin Urine Urobilinogen Ur Leukocyte Esterase Urine WBC (Auto) Urine RBC (Auto) Ur Squamous Epith Cells Urine Bacteria 12/25/18 18:51 WBC RBC Hgb Hct MCV MCH MCHC RDW Plt Count MPV Neut % (Auto) Lymph % (Auto) [place] % (Auto) Eos % (Auto) Baso % (Auto) Neut # (Auto) Lymph # (Auto) [place] # (Auto) Eos # (Auto) Baso # (Auto) PT INR APTT Sodium Potassium Chloride Carbon Dioxide Anion Gap BUN Creatinine Est GFR ( Amer) Est GFR (Non-Af Amer) Random Glucose Calcium Total Bilirubin AST ALT Alkaline Phosphatase Troponin I NT-Pro-B Natriuret Pep Total Protein Albumin Globulin Albumin/Globulin Ratio Urine Color Yellow Urine Clarity Clear Urine pH 6.0 Ur Specific [place] 1.007 Urine Protein Negative Urine Glucose (UA) 3+ H Urine Ketones Negative Urine Blood 2+ H Urine Nitrate Negative Urine Bilirubin Negative Urine Urobilinogen Normal Ur Leukocyte Esterase Neg Urine WBC (Auto) 1 Urine RBC (Auto) 5 H Ur Squamous Epith Cells < 1 Urine Bacteria Occ H
--- NOTE | 2018-12-25 20:16 | CP.PCM.HP ---
<Ave Vargas - Last Filed: 12/25/18 21:38> History of Present Illness - History of Present Illness History of Present Illness: cc: Shortness of breath HPI: Patient is a 58 year old Lebanese Male with pmhx of CAD with CABG 2003, stent 2010, DM2, PVD, Hyperlipidemia, angina, HTN, gastritis, asthma, GASTON that came to the ED for shortness of breath, chest pain, and LE edema. He describes SOB as dyspnea on exertion after walking for 1/2 a block, having difficulty catching his breath. He denies SOB at rest. It has been worsening over the past 1 week. His lower extremity swelling has worsened over the past week. He admits to dizziness at times, but is inconsistent as to when he has it and only says "sometimes." Denies fever, chills, n/v/d, hematochezia, melena, falls, syncope, blurry vision, headache. Endorses Orthopnea for many years, and uses 1 pillows. He endorses waking up gasping for air multiple times per night is not always compliant with his CPAP. He endorses numbness and tingling of the left hand when he sleeps. He was discharged 3 weeks ago (11/22-11/29) for the same issue. Cardio: Yuriy Pulm: [place] GI: [place] PMH: as stated in HPI PSH: CABG (2003), Coronary Stent (2010) Meds: as per DEC Allx: NKDA FHx: Heart disease ( several members) SHx: denies smoking, alcohol or drug use. Retired. Present on Admission - Present on Admission Any Indicators Present on Admission: No Review of Systems - Constitutional Constitutional: Fatigue, Lethargy, Weight Gain, Weakness. absent: Anorexia, Chills, Fever - EENT Eyes: absent: Blurred Vision, Diplopia Ears: absent: Decreased Hearing, Tinnitus Nose/Mouth/Throat: absent: Nasal Congestion, Nasal Discharge, Sore Throat - Cardiovascular Cardiovascular: Chest Pain with Activity, Dyspnea on Exertion, Edema. absent: Chest Pain, Chest Pain at Rest, Diaphoresis, Lightheadedness, Palpitations, Syncope - Respiratory Respiratory: Dyspnea on Exertion. absent: Cough - Gastrointestinal Gastrointestinal: absent: Abdominal Pain, Constipation, Diarrhea, Dysphagia, Nausea, Vomiting - Genitourinary Genitourinary: absent: Difficulty Urinating, Dysuria - Musculoskeletal Musculoskeletal: Joint Swelling. absent: Numbness, Tingling - Integumentary Integumentary: Dry Skin, Jaundice. absent: Rash - Neurological Neurological: Lack of Coordination. absent: Numbness, Paresthesias, Tingling - Psychiatric Psychiatric: absent: Anxiety, Depression - Endocrine Endocrine: Fatigue Past Patient History - Infectious Disease Hx of Infectious Diseases: None - Past Medical History & Family History Past Medical History?: Yes - Past Social History Smoking Status: Never Smoked Alcohol: None Drugs: Denies - CARDIAC Hx Hypercholesterolemia: Yes Hx Hypertension: Yes - PULMONARY Hx Pneumonia: Yes - NEUROLOGICAL Hx Neurological Disorder: No - HEENT Hx HEENT Problems: No - RENAL Hx Chronic Kidney Disease: No - ENDOCRINE/METABOLIC Hx Endocrine Disorders: Yes Hx Diabetes Mellitus Type 2: Yes - HEMATOLOGICAL/ONCOLOGICAL Hx Anemia: Yes - INTEGUMENTARY Hx Dermatological Problems: No - MUSCULOSKELETAL/RHEUMATOLOGICAL Hx Musculoskeletal Disorders: No Hx Falls: No - GASTROINTESTINAL Hx Gastritis: Yes - GENITOURINARY/GYNECOLOGICAL Hx Genitourinary Disorders: No - PSYCHIATRIC Hx Depression: Yes Hx Substance Use: No - SURGICAL HISTORY Hx Coronary Artery Bypass Graft: Yes (2003) Hx Coronary Stent: Yes (2010) - ANESTHESIA Hx Anesthesia: Yes Hx Anesthesia Reactions: No Hx Malignant Hyperthermia: No Meds Allergies/Adverse Reactions: Allergies Allergy/AdvReac Type Severity Reaction Status Date / Time No Known Allergies Allergy Verified 12/25/18 14:38 Physical Exam - Constitutional Appears: No Acute Distress, Unkempt, Agitated - Head Exam Head Exam: ATRAUMATIC, NORMOCEPHALIC - Eye Exam Eye Exam: EOMI, PERRL Pupil Exam: NORMAL ACCOMODATION - ENT Exam ENT Exam: Mucous Membranes Dry - Respiratory Exam Respiratory Exam: Rales, Wheezes, NORMAL BREATHING PATTERN - Cardiovascular Exam Cardiovascular Exam: REGULAR RHYTHM, +S1, +S2. absent: Systolic Murmur - GI/Abdominal Exam GI & Abdominal Exam: Normal Bowel Sounds, Soft. absent: Firm, Guarding, Tenderness - Extremities Exam Extremities exam: Negative for: calf tenderness Additional comments: bilateral pitting edema distal to knees - Back Exam Back exam: absent: CVA tenderness (L), CVA tenderness (R) - Neurological Exam Neurological exam: Abnormal Gait, Alert, CN II-XII Intact, Oriented x3, Reflexes Normal - Psychiatric Exam Psychiatric exam: Anxious - Skin Skin Exam: Dry, Intact, Normal Color, Warm Results - Vital Signs Recent Vital Signs: Last Vital Signs Temp 98.8 F 12/25/18 19:05 Pulse 81 12/25/18 19:05 Resp 18 12/25/18 19:05 BP 140/69 12/25/18 19:05 Pulse Ox 100 12/25/18 19:05 - Labs Result Diagrams: 12/25/18 16:43 12/25/18 16:43 Labs: Laboratory Results - last 24 hr 12/25/18 12/25/18 12/25/18 16:43 16:43 16:43 WBC 15.7 H D RBC 4.37 L Hgb 10.7 L Hct 34.5 L MCV 78.9 L MCH 24.4 L MCHC 30.9 L RDW 19.8 H Plt Count 165 MPV 8.6 Neut % (Auto) 81.6 H Lymph % (Auto) 6.9 L [place] % (Auto) 11.1 H Eos % (Auto) 0.1 Baso % (Auto) 0.3 Neut # (Auto) 12.8 H Lymph # (Auto) 1.1 [place] # (Auto) 1.7 H Eos # (Auto) 0.0 Baso # (Auto) 0.0 PT 16.8 H INR 1.5 APTT 43 H Sodium 133 Potassium 3.9 Chloride 101 Carbon Dioxide 25 Anion Gap 11 BUN 35 H Creatinine 1.3 Est GFR ( Amer) > 60 Est GFR (Non-Af Amer) 56 Random Glucose 138 H D Calcium 9.6 Total Bilirubin 1.5 H AST 96 H D ALT 27 Alkaline Phosphatase 104 Troponin I 0.0720 NT-Pro-B Natriuret Pep 6980 H Total Protein 7.3 Albumin 3.8 Globulin 3.5 Albumin/Globulin Ratio 1.1 Urine Color Urine Clarity Urine pH Ur Specific [place] Urine Protein Urine Glucose (UA) Urine Ketones Urine Blood Urine Nitrate Urine Bilirubin Urine Urobilinogen Ur Leukocyte Esterase Urine WBC (Auto) Urine RBC (Auto) Ur Squamous Epith Cells Urine Bacteria 12/25/18 18:51 WBC RBC Hgb Hct MCV MCH MCHC RDW Plt Count MPV Neut % (Auto) Lymph % (Auto) [place] % (Auto) Eos % (Auto) Baso % (Auto) Neut # (Auto) Lymph # (Auto) [place] # (Auto) Eos # (Auto) Baso # (Auto) PT INR APTT Sodium Potassium Chloride Carbon Dioxide Anion Gap BUN Creatinine Est GFR ( Amer) Est GFR (Non-Af Amer) Random Glucose Calcium Total Bilirubin AST ALT Alkaline Phosphatase Troponin I NT-Pro-B Natriuret Pep Total Protein Albumin Globulin Albumin/Globulin Ratio Urine Color Yellow Urine Clarity Clear Urine pH 6.0 Ur Specific [place] 1.007 Urine Protein Negative Urine Glucose (UA) 3+ H Urine Ketones Negative Urine Blood 2+ H Urine Nitrate Negative Urine Bilirubin Negative Urine Urobilinogen Normal Ur Leukocyte Esterase Neg Urine WBC (Auto) 1 Urine RBC (Auto) 5 H Ur Squamous Epith Cells < 1 Urine Bacteria Occ H Assessment & Plan - Assessment and Plan (Free Text) Assessment: 58yo M PMH CHF s/p cardiac cath, asthma, GASTON, gastritis, CAD s/p CABG and stent, DM2 with neuropathy, and PAD/PVD admitted for CHF exacerbation. Plan: HFpEF exacarbatio, acute on chronic Pleural Effusions Hx of CAD with CABG and stent - Trop neg - ProBNP 6980 (elevated above patient's baseline) - ECHO 11/27: mod to severe aortic regurg, normal LV systolic function - Cardiac Cath 11/29: successful saphenous vein graft to obtuse marginal artery. Required two drug eluting stents. - CXR (12/25): pulm vasc congestion, L pleural effusion. - Aspirin 81mg po daily - Plavix 75mg po daily - Lasix 40mg IV Q12H - Toprol 12.5mg PO daily - Cozaar 25mg PO daily - Crestor 10mg Po qHS - Zosyn 3.375gm IVPB 18 (started 12/25) - Cardio consulted: Dr. Yan - TELE, daily weights, I/O Pulmonary Hypertension Asthma, Obstructive Sleep Apnea - BiPAP - Duonebs - Breo Ellipta 1 puff INH daily - Ventolin 2 puff IH rQ6 prn - Pulm consulted: Dr. Akers Diabetes Mellitus with Neuropathy - f/u Hgb A1c - Accuchecks [facility] - ISS - hypoglycemia protocol - Januvia 100mg po daily - Neurontin 100mg po bid - Cymbalta 60mg po daily PPx - DVT: Heparin 5000u SC q8 - GI: Pepcid 40mg po daily - Diet: HHD - PT/OT d/w Dr. Prakash Vargas PGY-1 - Date & Time Date: 12/25/18 Time: 19:10 <Victoriano Randall - Last Filed: 12/27/18 17:10> Results - Vital Signs Recent Vital Signs: Last Vital Signs Temp 97.9 F 12/27/18 15:00 Pulse 76 12/27/18 15:00 Resp 20 12/27/18 15:00 BP 99/61 L 12/27/18 15:00 Pulse Ox 97 12/27/18 15:00 - Labs Result Diagrams: 12/27/18 07:00 12/27/18 07:00 Labs: Laboratory Results - last 24 hr 12/26/18 12/27/18 12/27/18 21:20 06:54 07:00 WBC 9.7 RBC 4.37 L Hgb 10.9 L Hct 34.3 L MCV 78.4 L MCH 24.9 L MCHC 31.7 L RDW 19.7 H Plt Count 157 MPV 9.1 Neut % (Auto) 69.2 Lymph % (Auto) 15.0 L [place] % (Auto) 14.0 H Eos % (Auto) 1.2 Baso % (Auto) 0.6 Neut # (Auto) 6.7 Lymph # (Auto) 1.5 [place] # (Auto) 1.4 H Eos # (Auto) 0.1 Baso # (Auto) 0.1 Sodium Potassium Chloride Carbon Dioxide Anion Gap BUN Creatinine Est GFR ( Amer) Est GFR (Non-Af Amer) POC Glucose (mg/dL) 150 H 83 Random Glucose Calcium Phosphorus Magnesium Total Bilirubin AST ALT Alkaline Phosphatase Total Protein Albumin Globulin Albumin/Globulin Ratio 12/27/18 12/27/18 07:00 11:52 WBC RBC Hgb Hct MCV MCH MCHC RDW Plt Count MPV Neut % (Auto) Lymph % (Auto) [place] % (Auto) Eos % (Auto) Baso % (Auto) Neut # (Auto) Lymph # (Auto) [place] # (Auto) Eos # (Auto) Baso # (Auto) Sodium 139 Potassium 3.0 L Chloride 102 Carbon Dioxide 29 Anion Gap 11 BUN 33 H Creatinine 1.7 H Est GFR ( Amer) 50 Est GFR (Non-Af Amer) 41 POC Glucose (mg/dL) 215 H Random Glucose 82 Calcium 9.2 Phosphorus 2.7 Magnesium 2.5 H Total Bilirubin 1.4 H AST 73 H ALT 30 Alkaline Phosphatase 86 Total Protein 6.5 Albumin 3.3 L Globulin 3.2 Albumin/Globulin Ratio 1.0 Attending/Attestation - Attestation I have personally seen and examined this patient.: Yes I have fully participated in the care of the patient.: Yes I have reviewed all pertinent clinical information: Yes Notes (Text): c/o increasing Edema and shortness of breath 1.Acute on chronis heart failure with preserved EF 2.pulmonary hypertension 3.GASTON 4.DM 5.Impaired Kidney function case discussed with Dr craft and DR Akers. order BIPAP as recommended by Dr Alex IV lasix,follow creatinine
[2018-12-25] MEDS: (Novolog) Insulin Aspart, Recombinant 100 u/ml 10 ml vial SC SCH (21:04)
[2018-12-25 21:53] LABS: PLATELET ESTIMATE NORMAL (NORMAL)
[2018-12-25 21:56] LABS: BANDS 3 % (0-2); LYMPHOCYTE 5 % (20-40); MONOCYTE 7 % (0-10); NEUTROPHIL 85 % (50-75); TOTAL CELLS COUNTED 100
[2018-12-25 21:57] LABS: ANISOCYTOSIS SLIGHT; HYPERSEGMENTATION PRESENT; LARGE PLATELETS PRESENT; OVALOCYTES SLIGHT; POIKILOCYTOSIS SLIGHT; POLYCHROMIC SLIGHT; SMUDGE CELLS PRESENT; TOXIC GRANULATION PRESENT
[2018-12-25] MEDS: Piperacill/Tazo 3.375gm in Dex 3.375 GM/50 ML BAG IVPB SCH (22:03)
[2018-12-26] MEDS: Piperacill/Tazo 3.375gm in Dex 3.375 GM/50 ML BAG IVPB SCH ×3 (05:22→21:00)
[2018-12-26] MEDS: (Novolog) Insulin Aspart, Recombinant 100 u/ml 10 ml vial SC SCH ×4 (07:05→21:41)
[2018-12-26 07:26] LABS: BASO % 0.3 % (0.0-2.0); EOS % 0.4 % (0.0-4.0); HEMOGLOBIN 10.5 g/dL (12.0-18.0); LYMPH # 1.4 K/uL (1.0-4.3); LYMPH % 10.9 % (20.0-40.0); MEAN CELL VOLUME 77.1 fL (80.0-94.0); MEAN CORPUSCULAR HEMOGLOBIN 24.9 pg (27.0-31.0); MEAN CORPUSCULAR HGB CONC 32.3 g/dL (33.0-37.0); MEAN PLATELET VOLUME 8.9 fL (7.2-11.7); MONO # 1.8 K/uL (0.0-0.8); MONO % 13.7 % (0.0-10.0); NEUT # 9.6 K/uL (1.8-7.0); NEUT % 74.7 % (50.0-75.0); NRBC % 0.4 % (0.0-2.0); RBC 4.22 Mil/uL (4.40-5.90); RED CELL DISTRIBUTION WIDTH 18.9 % (11.5-14.5); WHITE BLOOD COUNT 12.8 K/uL (4.8-10.8)
[2018-12-26] MEDS: Albuterol HFA 90 mcg/actuation (8 g) IH PRN (07:50)
[2018-12-26] MEDS: Fluticasone-Vilanterol 100/25mcg Diskus INH SCH (07:50)
[2018-12-26 08:12] LABS: ALBUMIN 3.2 g/dL (3.5-5.0); CALCIUM 9.5 mg/dl (8.6-10.4)
[2018-12-26] MEDS ORDERED: Cilostazol 50 mg Tab UD PO SCH (10:00)
[2018-12-26] MEDS ORDERED: CANAGLIFLOZIN 300 MG PO SCH (10:00)
--- NOTE | 2018-12-26 10:15 | CP.PCM.PN ---
Subjective - Date & Time of Evaluation Date of Evaluation: 12/26/18 Time of Evaluation: 10:14 - Subjective Subjective: pt is seen and examined, follow up consult is dictated #[id number] increase lasix to 60 mg iv bid x2 days if pt can tolerate, agree with k+ supplement fluid restriction 1 lit/day Objective - Vital Signs/Intake and Output Vital Signs (last 24 hours): Temp Pulse Resp BP Pulse Ox 98.1 F 75 20 121/67 96 12/26/18 08:00 12/26/18 08:00 12/26/18 08:00 12/26/18 08:00 12/26/18 08:00 Intake and Output: 12/26/18 12/26/18 06:59 18:59 Output Total 1999 Balance -1999 - Medications Medications: Current Medications Albuterol (Ventolin Hfa 90 Mcg/Actuation (8 G)) 2 puff IH RQ6 PRN PRN Reason: Shortness of Breath Aspirin (Ecotrin) 81 mg PO DAILY BRIANDA Clopidogrel Bisulfate (Plavix) 75 mg PO DAILY BRIANDA Dextrose (Dextrose 50% Inj) 0 ml IV STAT PRN; Protocol PRN Reason: Hypoglycemia Protocol Dextrose (Glutose 15) 0 gm PO ONCE PRN; Protocol PRN Reason: Hypoglycemia Protocol Duloxetine HCl (Cymbalta) 60 mg PO DAILY BRIANDA Famotidine (Pepcid) 40 mg PO DAILY BRIANDA Fluticasone/Vilanterol (Breo Ellipta 100-25 Mcg Inh) 1 puff INH RQD BRIANDA Furosemide (Lasix) 60 mg IVP BID BRIANDA Gabapentin (Neurontin) 100 mg PO BID BRIANDA Glucagon (Glucagen Diagnostic Kit) 0 mg IM STAT PRN; Protocol PRN Reason: Hypoglycemia Protocol Heparin Sodium (Porcine) (Heparin) 5,000 units SC Q8 BRIANDA Last Admin: 12/26/18 05:23 Dose: 5,000 units Dextrose (Dextrose 5% In Water 1000 Ml) 1,000 mls @ 0 mls/hr IV .Q0M PRN; Protocol PRN Reason: Hypoglycemia Protocol Piperacillin Sod/Tazobactam Sod (Zosyn 3.375 Gm Iv Premix) 3.375 gm in 50 mls @ 100 mls/hr IVPB Q8H BRIANDA; Protocol Last Admin: 12/26/18 05:22 Dose: 100 mls/hr Insulin Aspart (Novolog) 0 unit SC ACHS BRIANDA; Protocol Last Admin: 12/26/18 07:05 Dose: Not Given Losartan Potassium (Cozaar) 25 mg PO DAILY [facility] Metoprolol Succinate (Toprol Xl) 12.5 mg PO DAILY [facility] Potassium Chloride (K-Dur 20 Meq Er Tab) 40 meq PO Q2 [facility] Stop: 12/26/18 12:01 Rosuvastatin Calcium (Crestor) 10 mg PO HS [facility] Last Admin: 12/25/18 22:03 Dose: 10 mg Sitagliptin Phosphate (Januvia) 100 mg PO DAILY [facility] - Labs Labs: 12/26/18 07:14 12/26/18 07:14 PT 16.8 SECONDS (9.7-12.2) H 12/25/18 16:43 INR 1.5 12/25/18 16:43 APTT 43 SECONDS (21-34) H 12/25/18 16:43
--- NOTE | 2018-12-26 10:26 | CON ---
DATE: 12/25/2018 RENAL CONSULTATION LOCATION: The patient is located in [facility], room 563, bed A. REQUESTED BY: Dr. Randall. REASON FOR RENAL CONSULTATION: CHF, bilateral leg edema, and increased BUN and creatinine, for further evaluation. HISTORY OF PRESENT ILLNESS: The patient is a 58-year-old obese male with a past medical history significant for diabetes more than 5 years, hypertension more than 5 years, hyperlipidemia, coronary artery disease, CHF, status post CABG in 2003, and also multiple stents who presented to the emergency room with abdominal bloating and bilateral lower extremity swelling and shortness of breath, status post two stents placement recently in 11/2018 after cardiac echo showed normal LV function with moderate to severe aortic regurgitation. The patient claims he does not take Lasix at home. The patient denies any chest pain, palpitation. Denies any nausea, vomiting, diarrhea. Denies any fever. Denies any cough. The patient has complains of shortness of breath, bilateral leg swelling, and also abdominal distention. As per the patient, his swelling is getting worse since the last admission. PAST MEDICAL HISTORY: Significant for longstanding hypertension, diabetes, hyperlipidemia, CHF, coronary artery disease. PAST SURGICAL HISTORY: Status post CABG in 2003 and status post multiple stents. ALLERGIES: NO KNOWN DRUG ALLERGIES. SOCIAL HISTORY: Denies any smoking, alcohol, or drugs. PERSONAL HISTORY: He is . He has two children. FAMILY HISTORY: Father . Mother also . He has one brother, . He has three sisters alive and one sister . CURRENT MEDICATIONS: Include as follows: Breo Ellipta, losartan 25 mg p.o. daily, Crestor 10 mg at bedtime, Cymbalta 60 mg p.o. daily, aspirin 81 mg daily, subcu heparin 5000 every 8 hours, Januvia 100 mg p.o. daily, Lasix 40 mg IV b.i.d., Neurontin 100 mg p.o. b.i.d., NovoLog for sliding scale, Pepcid 40 mg p.o. daily, Plavix 75 mg daily, metoprolol 12.5 mg p.o. daily, albuterol inhaler, and Zosyn 3.375 g IV piggyback every 8 hours. REVIEW OF SYSTEMS: Significant for abdominal distention and also bilateral leg swelling. All other review of systems are reviewed and are negative. PHYSICAL EXAMINATION: VITAL SIGNS: As follows: Blood pressure 149/55, pulse 80, respirations 20, temperature 98.3, saturation 95%. Height 5 feet 5 inches, weight is 180 pounds. GENERAL: The patient is a 58-year-old elderly obese male, well-built, well-nourished, not in distress. HEENT: Pupils normally reactive to light and accommodation. Conjunctivae pink. Sclerae anicteric. The patient has a subconjunctival bleed in the right side. Tongue is moist. Trachea is midline. No thyroid enlargement. LUNGS: Symmetric on both sides. Bilateral breath sounds present. Bilateral crackles present up to half of the chest. CARDIOVASCULAR SYSTEM: Wayne at the fifth intercostal space, midclavicular line. S1, S2 audible. No murmur, no gallop. ABDOMEN: Protuberant and soft. Mild left lower quadrant tenderness present. No guarding or rigidity. No hepatosplenomegaly. No abdominal bruit. CENTRAL NERVOUS SYSTEM: The patient is alert, awake, oriented x3. Nonfocal neuro examination. Cranial nerves II through XII grossly intact. Sensory and motor system is within normal limits. EXTREMITIES: No cyanosis, no clubbing. The patient has a 2+ edema in both lower extremities. LABORATORY DATA: Include as follows: As of 12/25/2018, WBC 15.7, hemoglobin 10.7, hematocrit is 34.5, MCV 78.9, platelets 165, neutrophils 85, bands 3, lymphs 5, monos 7. PT 16.8 and PTT 43. Sodium 133, potassium 3.9, chloride 101, CO2 of 25, BUN 35, creatinine 1.3, glucose 138, GFR 56, calcium 9.6. Total bili 1.5, AST 96, ALT 27, alkaline phosphatase is 104. Troponin 0.072 and proBNP 6980. Total protein 7.3, albumin is 3.8. Urinalysis, yellow, clear, and pH 6, specific gravity 1.007, protein negative, glucose 3+, ketones negative, blood 2+, nitrites negative, bilirubin negative, urobilinogen normal, leukocyte esterase negative, wbc 1, rbc 5, bacteria occasional. Chest x-ray as of 12/25/2018, pulmonary vascular congestion and left pleural effusion. There are progressive findings compared to the prior studies, cardiomegaly. IMPRESSION: In summary, the patient is a 58-year-old elderly obese male with a history of longstanding hypertension, diabetes, hyperlipidemia, coronary artery disease, status post coronary artery bypass graft in 2003, multiple stents, congestive heart failure who was admitted with bilateral leg swelling and shortness of breath and abdominal distention with increased white blood cell count and increased BUN and creatinine. 1. Edema of the legs, most likely secondary to fluid overload secondary to congestive heart failure. 2. [id number] aortic regurgitation. 3. Coronary artery disease, status post coronary artery bypass graft and multiple stents. 4. Chronic kidney disease III, most likely secondary to hypertensive nephrosclerosis. PLAN: Restrict fluid intake to 1 liter per day and also continue Lasix 40 mg IV b.i.d. and titrate as needed. Keep him in negative balance and also follow up BMP daily, low-sodium diet. We will follow with you. Thank you for allowing me to participate in your patient's care. No further workup was needed for the renal at this time. Annmarie Nixon MD
[2018-12-26] MEDS: Metoprolol Succinate 12.5 mg XL Tab PO SCH ×2 (10:51→10:53)
[2018-12-26] MEDS: Potassium Chloride 20 mEq ER Tab PO SCH ×2 (10:52→13:17)
--- NOTE | 2018-12-26 16:54 | CP.PCM.PN ---
<Jerry Tavera - Last Filed: 12/26/18 17:39> Subjective - Date & Time of Evaluation Date of Evaluation: 12/26/18 Time of Evaluation: 16:54 - Subjective Subjective: HOSPITALIST SERVICE Pt s/e at bedside, denies cp fc nv, pt reports persistent SOB with exertion, reports luciana leg swelling improving. agrees with plan to increase diuretics Objective - Vital Signs/Intake and Output Vital Signs (last 24 hours): Temp Pulse Resp BP Pulse Ox 98.0 F 69 20 100/61 99 12/26/18 15:00 12/26/18 15:00 12/26/18 15:00 12/26/18 15:00 12/26/18 15:00 Intake and Output: 12/26/18 12/26/18 06:59 18:59 Intake Total 69 Output Total 1999 1019 Balance -1999 -324 - Medications Medications: Current Medications Albuterol (Ventolin Hfa 90 Mcg/Actuation (8 G)) 2 puff IH RQ6 PRN PRN Reason: Shortness of Breath Last Admin: 12/26/18 07:50 Dose: 2 puff Aspirin (Ecotrin) 81 mg PO DAILY [facility] Last Admin: 12/26/18 10:50 Dose: 81 mg Clopidogrel Bisulfate (Plavix) 75 mg PO DAILY [facility] Last Admin: 12/26/18 10:51 Dose: 75 mg Dextrose (Dextrose 50% Inj) 0 ml IV STAT PRN; Protocol PRN Reason: Hypoglycemia Protocol Dextrose (Glutose 15) 0 gm PO ONCE PRN; Protocol PRN Reason: Hypoglycemia Protocol Duloxetine HCl (Cymbalta) 60 mg PO DAILY [facility] Last Admin: 12/26/18 10:51 Dose: 60 mg Famotidine (Pepcid) 40 mg PO DAILY [facility] Last Admin: 12/26/18 10:51 Dose: 40 mg Fluticasone/Vilanterol (Breo Ellipta 100-25 Mcg Inh) 1 puff INH RQD [facility] Last Admin: 12/26/18 07:50 Dose: 1 puff Furosemide (Lasix) 60 mg IVP BID [facility] Last Admin: 12/26/18 10:52 Dose: 60 mg Gabapentin (Neurontin) 100 mg PO BID [facility] Last Admin: 12/26/18 10:51 Dose: 100 mg Glucagon (Glucagen Diagnostic Kit) 0 mg IM STAT PRN; Protocol PRN Reason: Hypoglycemia Protocol Heparin Sodium (Porcine) (Heparin) 5,000 units SC Q8 [facility] Last Admin: 12/26/18 13:17 Dose: 5,000 units Dextrose (Dextrose 5% In Water 1000 Ml) 1,000 mls @ 0 mls/hr IV .Q0M PRN; Protocol PRN Reason: Hypoglycemia Protocol Piperacillin Sod/Tazobactam Sod (Zosyn 3.375 Gm Iv Premix) 3.375 gm in 50 mls @ 100 mls/hr IVPB Q8H [facility]; Protocol Last Admin: 12/26/18 13:17 Dose: 100 mls/hr Insulin Aspart (Novolog) 0 unit SC ACHS [facility]; Protocol Last Admin: 12/26/18 16:18 Dose: Not Given Losartan Potassium (Cozaar) 25 mg PO DAILY [facility] Last Admin: 12/26/18 10:50 Dose: 25 mg Metoprolol Succinate (Toprol Xl) 12.5 mg PO DAILY [facility] Last Admin: 12/26/18 10:53 Dose: Not Given Rosuvastatin Calcium (Crestor) 10 mg PO HS [facility] Last Admin: 12/25/18 22:03 Dose: 10 mg Sitagliptin Phosphate (Januvia) 100 mg PO DAILY [facility] Last Admin: 12/26/18 10:50 Dose: 100 mg - Labs Labs: 12/26/18 07:14 12/26/18 07:14 PT 16.8 SECONDS (9.7-12.2) H 12/25/18 16:43 INR 1.5 12/25/18 16:43 APTT 43 SECONDS (21-34) H 12/25/18 16:43 - Additional Findings Additional findings: - Constitutional Appears: No Acute Distress, Unkempt, Agitated - Head Exam Head Exam: ATRAUMATIC, NORMOCEPHALIC - Eye Exam Eye Exam: EOMI, PERRL Pupil Exam: NORMAL ACCOMODATION - ENT Exam ENT Exam: Mucous Membranes Dry - Respiratory Exam Respiratory Exam: Rales, Wheezes, NORMAL BREATHING PATTERN - Cardiovascular Exam Cardiovascular Exam: REGULAR RHYTHM, +S1, +S2. absent: Systolic Murmur - GI/Abdominal Exam GI & Abdominal Exam: Normal Bowel Sounds, Soft. absent: Firm, Guarding, Tenderness - Extremities Exam Extremities exam: Negative for: calf tenderness Additional comments: bilateral pitting edema distal to distal knees, +2 - Back Exam Back exam: absent: CVA tenderness (L), CVA tenderness (R) - Neurological Exam Neurological exam: Abnormal Gait, Alert, CN II-XII Intact, Oriented x3, Reflexes Normal - Psychiatric Exam Psychiatric exam: Anxious - Skin Skin Exam: Dry, Intact, Normal Color, Warm Assessment and Plan - Assessment and Plan (Free Text) Assessment: 58yo M PMH CHF s/p cardiac cath, asthma, GASTON, gastritis, CAD s/p CABG and stent, DM2 with neuropathy, and PAD/PVD admitted for CHF exacerbation. Plan: HFpEF exacarbatio, acute on chronic Pleural Effusions Hx of CAD with CABG and stent - Trop neg - ProBNP 6980 (elevated above patient's baseline) - ECHO 11/27: mod to severe aortic regurg, normal LV systolic function - Cardiac Cath 11/29: successful saphenous vein graft to obtuse marginal artery. Required two drug eluting stents. - CXR (12/25): pulm vasc congestion, L pleural effusion. - Aspirin 81mg po daily - Plavix 75mg po daily - Lasix 60mg IV Q12H - Toprol 12.5mg PO daily - Cozaar 25mg PO daily - Crestor 10mg Po qHS - Zosyn 3.375gm IVPB 18 (started 12/25) - Cardio consulted: Dr. Yan - TELE, daily weights, I/O - Nephro Dr Brown consulted replete k, 1L fluid restriction Pulmonary Hypertension Asthma, Obstructive Sleep Apnea - BiPAP - Duonebs - Breo Ellipta 1 puff INH daily - Ventolin 2 puff IH rQ6 prn - Pulm consulted: Dr. Akers Diabetes Mellitus with Neuropathy - 6.7 Hgb A1c - Accuchecks [facility] - ISS - hypoglycemia protocol - Januvia 100mg po daily - Neurontin 100mg po bid - Cymbalta 60mg po daily PPx - DVT: Heparin 5000u SC q8 - GI: Pepcid 40mg po daily - Diet: HHD - PT/OT <Erica Stevenson V - Last Filed: 12/27/18 03:34> Objective - Vital Signs/Intake and Output Vital Signs (last 24 hours): Temp Pulse Resp BP Pulse Ox 97.2 F L 67 20 96/58 L 100 12/26/18 23:00 12/27/18 00:59 12/26/18 23:00 12/26/18 23:00 12/26/18 23:00 Intake and Output: 12/26/18 12/27/18 18:59 06:59 Intake Total 696 230 Output Total 1020 480 Balance -324 -250 - Medications Medications: Current Medications Albuterol (Ventolin Hfa 90 Mcg/Actuation (8 G)) 2 puff IH RQ6 PRN PRN Reason: Shortness of Breath Last Admin: 12/26/18 07:50 Dose: 2 puff Aspirin (Ecotrin) 81 mg PO DAILY [facility] Last Admin: 12/26/18 10:50 Dose: 81 mg Ciprofloxacin (Ciloxan 0.3% Oph Soln) 2 drop OU Q4 [facility] Last Admin: 12/27/18 00:51 Dose: Not Given Clopidogrel Bisulfate (Plavix) 75 mg PO DAILY [facility] Last Admin: 12/26/18 10:51 Dose: 75 mg Dextrose (Dextrose 50% Inj) 0 ml IV STAT PRN; Protocol PRN Reason: Hypoglycemia Protocol Dextrose (Glutose 15) 0 gm PO ONCE PRN; Protocol PRN Reason: Hypoglycemia Protocol Duloxetine HCl (Cymbalta) 60 mg PO DAILY [facility] Last Admin: 12/26/18 10:51 Dose: 60 mg Famotidine (Pepcid) 40 mg PO DAILY [facility] Last Admin: 12/26/18 10:51 Dose: 40 mg Fluticasone/Vilanterol (Breo Ellipta 100-25 Mcg Inh) 1 puff INH RQD [facility] Last Admin: 12/26/18 07:50 Dose: 1 puff Furosemide (Lasix) 40 mg IVP BID [facility] Gabapentin (Neurontin) 100 mg PO BID [facility] Last Admin: 12/26/18 17:24 Dose: 100 mg Glucagon (Glucagen Diagnostic Kit) 0 mg IM STAT PRN; Protocol PRN Reason: Hypoglycemia Protocol Heparin Sodium (Porcine) (Heparin) 5,000 units SC Q8 [facility] Last Admin: 12/26/18 21:42 Dose: 5,000 units Dextrose (Dextrose 5% In Water 1000 Ml) 1,000 mls @ 0 mls/hr IV .Q0M PRN; Protocol PRN Reason: Hypoglycemia Protocol Piperacillin Sod/Tazobactam Sod (Zosyn 3.375 Gm Iv Premix) 3.375 gm in 50 mls @ 100 mls/hr IVPB Q8H [facility]; Protocol Last Admin: 12/26/18 21:00 Dose: 100 mls/hr Insulin Aspart (Novolog) 0 unit SC ACHS [facility]; Protocol Last Admin: 12/26/18 21:41 Dose: Not Given Losartan Potassium (Cozaar) 25 mg PO DAILY [facility] Last Admin: 12/26/18 10:50 Dose: 25 mg Metoprolol Succinate (Toprol Xl) 12.5 mg PO DAILY [facility] Last Admin: 12/26/18 10:53 Dose: Not Given Nystatin (Nystatin Oral Susp) 5 ml PO QID [facility] Last Admin: 12/26/18 21:42 Dose: 5 ml Rosuvastatin Calcium (Crestor) 10 mg PO HS [facility] Last Admin: 12/26/18 21:42 Dose: 10 mg Sitagliptin Phosphate (Januvia) 100 mg PO DAILY [facility] Last Admin: 12/26/18 10:50 Dose: 100 mg - Labs Labs: 12/26/18 07:14 12/26/18 07:14 PT 16.8 SECONDS (9.7-12.2) H 12/25/18 16:43 INR 1.5 12/25/18 16:43 APTT 43 SECONDS (21-34) H 12/25/18 16:43 Attending/Attestation - Attestation I have personally seen and examined this patient.: Yes I have fully participated in the care of the patient.: Yes I have reviewed all pertinent clinical information, including history, physical exam and plan: Yes Notes (Text): This is late computer entry for 12/26/18. Patient seen, examined and case discussed with medical claims representative. This is 58 year old male with noted acute on chronic diastolic heart failure with recent stenting performed by cardiology last hospitalization. patient's diuretic increased by nephrology and elecolyte repleted. compared to last admission, patient's leg edema has increased significantly. I suspect patient is not compliant on his fluid restriction for his heart failure. patient will need diuresis given he feels shortness of breathe on exertion and congestion. patient is on Zosyn to cover for pneumonia. cardiology, pulmonary, and nephrology on board.
--- NOTE | 2018-12-26 18:00 | CP.PCM.CON ---
Past Patient History - Infectious Disease Hx of Infectious Diseases: None - Past Medical History & Family History Past Medical History?: Yes - Past Social History Smoking Status: Never Smoked - CARDIAC Hx Hypercholesterolemia: Yes Hx Hypertension: Yes - PULMONARY Hx Pneumonia: Yes - NEUROLOGICAL Hx Neurological Disorder: No - HEENT Hx HEENT Problems: No - RENAL Hx Chronic Kidney Disease: No - ENDOCRINE/METABOLIC Hx Endocrine Disorders: Yes Hx Diabetes Mellitus Type 2: Yes - HEMATOLOGICAL/ONCOLOGICAL Hx Anemia: Yes - INTEGUMENTARY Hx Dermatological Problems: No - MUSCULOSKELETAL/RHEUMATOLOGICAL Hx Musculoskeletal Disorders: No Hx Falls: No - GASTROINTESTINAL Hx Gastritis: Yes - GENITOURINARY/GYNECOLOGICAL Hx Genitourinary Disorders: No - PSYCHIATRIC Hx Depression: Yes Hx Substance Use: No - SURGICAL HISTORY Hx Coronary Artery Bypass Graft: Yes (2003) Hx Coronary Stent: Yes (2010) - ANESTHESIA Hx Anesthesia: Yes Hx Anesthesia Reactions: No Hx Malignant Hyperthermia: No Meds Allergies/Adverse Reactions: Allergies Allergy/AdvReac Type Severity Reaction Status Date / Time No Known Allergies Allergy Verified 12/25/18 14:38 - Medications Medications: Current Medications Albuterol (Ventolin Hfa 90 Mcg/Actuation (8 G)) 2 puff IH RQ6 PRN PRN Reason: Shortness of Breath Last Admin: 12/26/18 07:50 Dose: 2 puff Aspirin (Ecotrin) 81 mg PO DAILY [facility] Last Admin: 12/26/18 10:50 Dose: 81 mg Clopidogrel Bisulfate (Plavix) 75 mg PO DAILY [facility] Last Admin: 12/26/18 10:51 Dose: 75 mg Dextrose (Dextrose 50% Inj) 0 ml IV STAT PRN; Protocol PRN Reason: Hypoglycemia Protocol Dextrose (Glutose 15) 0 gm PO ONCE PRN; Protocol PRN Reason: Hypoglycemia Protocol Duloxetine HCl (Cymbalta) 60 mg PO DAILY [facility] Last Admin: 12/26/18 10:51 Dose: 60 mg Famotidine (Pepcid) 40 mg PO DAILY [facility] Last Admin: 12/26/18 10:51 Dose: 40 mg Fluticasone/Vilanterol (Breo Ellipta 100-25 Mcg Inh) 1 puff INH RQD [facility] Last Admin: 12/26/18 07:50 Dose: 1 puff Furosemide (Lasix) 60 mg IVP BID [facility] Last Admin: 12/26/18 17:22 Dose: 60 mg Gabapentin (Neurontin) 100 mg PO BID [facility] Last Admin: 12/26/18 17:24 Dose: 100 mg Glucagon (Glucagen Diagnostic Kit) 0 mg IM STAT PRN; Protocol PRN Reason: Hypoglycemia Protocol Heparin Sodium (Porcine) (Heparin) 5,000 units SC Q8 [facility] Last Admin: 12/26/18 13:17 Dose: 5,000 units Dextrose (Dextrose 5% In Water 1000 Ml) 1,000 mls @ 0 mls/hr IV .Q0M PRN; Protocol PRN Reason: Hypoglycemia Protocol Piperacillin Sod/Tazobactam Sod (Zosyn 3.375 Gm Iv Premix) 3.375 gm in 50 mls @ 100 mls/hr IVPB Q8H [facility]; Protocol Last Admin: 12/26/18 13:17 Dose: 100 mls/hr Insulin Aspart (Novolog) 0 unit SC ACHS [facility]; Protocol Last Admin: 12/26/18 16:18 Dose: Not Given Losartan Potassium (Cozaar) 25 mg PO DAILY [facility] Last Admin: 12/26/18 10:50 Dose: 25 mg Metoprolol Succinate (Toprol Xl) 12.5 mg PO DAILY [facility] Last Admin: 12/26/18 10:53 Dose: Not Given Rosuvastatin Calcium (Crestor) 10 mg PO HS [facility] Last Admin: 12/25/18 22:03 Dose: 10 mg Sitagliptin Phosphate (Januvia) 100 mg PO DAILY [facility] Last Admin: 12/26/18 10:50 Dose: 100 mg Results - Vital Signs Recent Vital Signs: Last Vital Signs Temp 98.0 F 12/26/18 15:00 Pulse 69 12/26/18 15:00 Resp 20 12/26/18 15:00 BP 115/70 12/26/18 17:22 Pulse Ox 99 12/26/18 15:00 - Labs Result Diagrams: 12/26/18 07:14 12/26/18 07:14 Labs: Laboratory Results - last 24 hr 12/25/18 12/25/18 12/25/18 16:43 18:51 20:59 WBC RBC Hgb Hct MCV MCH MCHC RDW Plt Count MPV Neut % (Auto) Lymph % (Auto) Kemper % (Auto) Eos % (Auto) Baso % (Auto) Neut # (Auto) Lymph # (Auto) Kemper # (Auto) Eos # (Auto) Baso # (Auto) Neutrophils % (Manual) 85 H Band Neutrophils % 3 H Lymphocytes % (Manual) 5 L Monocytes % (Manual) 7 Hypersegmented Polys Present Smudge Cells Present Toxic Granulation Present Platelet Estimate Normal Large Platelets Present Polychromasia Slight Poikilocytosis (manual Slight Anisocytosis (manual) Slight Ovalocytes Slight Sodium Potassium Chloride Carbon Dioxide Anion Gap BUN Creatinine Est GFR ( Amer) Est GFR (Non-Af Amer) POC Glucose (mg/dL) 132 H Random Glucose Hemoglobin A1c Calcium Phosphorus Magnesium Total Bilirubin AST ALT Alkaline Phosphatase Total Protein Albumin Globulin Albumin/Globulin Ratio Urine Color Yellow Urine Clarity Clear Urine pH 6.0 Ur Specific [place] 1.007 Urine Protein Negative Urine Glucose (UA) 3+ H Urine Ketones Negative Urine Blood 2+ H Urine Nitrate Negative Urine Bilirubin Negative Urine Urobilinogen Normal Ur Leukocyte Esterase Neg Urine WBC (Auto) 1 Urine RBC (Auto) 5 H Ur Squamous Epith Cells < 1 Urine Bacteria Occ H 12/26/18 12/26/18 12/26/18 06:49 07:14 07:14 WBC 12.8 H RBC 4.22 L Hgb 10.5 L Hct 32.5 L MCV 77.1 L MCH 24.9 L MCHC 32.3 L RDW 18.9 H Plt Count 154 MPV 8.9 Neut % (Auto) 74.7 Lymph % (Auto) 10.9 L Kemper % (Auto) 13.7 H Eos % (Auto) 0.4 Baso % (Auto) 0.3 Neut # (Auto) 9.6 H Lymph # (Auto) 1.4 Kemper # (Auto) 1.8 H Eos # (Auto) 0.0 Baso # (Auto) 0.0 Neutrophils % (Manual) Band Neutrophils % Lymphocytes % (Manual) Monocytes % (Manual) Hypersegmented Polys Smudge Cells Toxic Granulation Platelet Estimate Large Platelets Polychromasia Poikilocytosis (manual Anisocytosis (manual) Ovalocytes Sodium 136 Potassium 2.6 L Chloride 101 Carbon Dioxide 26 Anion Gap 11 BUN 31 H Creatinine 1.5 Est GFR ( Amer) 58 Est GFR (Non-Af Amer) 48 POC Glucose (mg/dL) 94 Random Glucose 86 D Hemoglobin A1c Calcium 9.5 Phosphorus 2.6 Magnesium 2.4 H Total Bilirubin 1.6 H AST 83 H ALT 29 Alkaline Phosphatase 89 Total Protein 6.6 Albumin 3.2 L Globulin 3.3 Albumin/Globulin Ratio 1.0 Urine Color Urine Clarity Urine pH Ur Specific [place] Urine Protein Urine Glucose (UA) Urine Ketones Urine Blood Urine Nitrate Urine Bilirubin Urine Urobilinogen Ur Leukocyte Esterase Urine WBC (Auto) Urine RBC (Auto) Ur Squamous Epith Cells Urine Bacteria 12/26/18 12/26/18 12/26/18 07:14 11:15 16:04 WBC RBC Hgb Hct MCV MCH MCHC RDW Plt Count MPV Neut % (Auto) Lymph % (Auto) Kemper % (Auto) Eos % (Auto) Baso % (Auto) Neut # (Auto) Lymph # (Auto) Kemper # (Auto) Eos # (Auto) Baso # (Auto) Neutrophils % (Manual) Band Neutrophils % Lymphocytes % (Manual) Monocytes % (Manual) Hypersegmented Polys Smudge Cells Toxic Granulation Platelet Estimate Large Platelets Polychromasia Poikilocytosis (manual Anisocytosis (manual) Ovalocytes Sodium Potassium Chloride Carbon Dioxide Anion Gap BUN Creatinine Est GFR ( Amer) Est GFR (Non-Af Amer) POC Glucose (mg/dL) 253 H 128 H Random Glucose Hemoglobin A1c 6.7 H Calcium Phosphorus Magnesium Total Bilirubin AST ALT Alkaline Phosphatase Total Protein Albumin Globulin Albumin/Globulin Ratio Urine Color Urine Clarity Urine pH Ur Specific [place] Urine Protein Urine Glucose (UA) Urine Ketones Urine Blood Urine Nitrate Urine Bilirubin Urine Urobilinogen Ur Leukocyte Esterase Urine WBC (Auto) Urine RBC (Auto) Ur Squamous Epith Cells Urine Bacteria
[2018-12-26] MEDS: Ciprofloxacin 0.3% OPTH SOLN OU SCH (21:00)
[2018-12-26] MEDS: Nystatin 100,000 Units/ml Oral Susp 5 ml UD PO SCH (21:42)
--- NOTE | 2018-12-27 00:07 | CP.PCM.CON ---
History of Present Illness - History of Present Illness History of Present Illness: cc: Shortness of breath HPI: Patient is a 58 year old [place] Male with pmhx of CAD with CABG 2003, stent 2010, DM2, PVD, Hyperlipidemia, angina, HTN, gastritis, asthma, GASTON that came to the ED for shortness of breath, chest pain, and LE edema. He describes SOB as dyspnea on exertion after walking for 1/2 a block, having difficulty catching his breath. He denies SOB at rest. It has been worsening over the past 1 week. His lower extremity swelling has worsened over the past week. He admits to dizziness at times, but is inconsistent as to when he has it and only says "sometimes." Denies fever, chills, n/v/d, hematochezia, melena, falls, syncope, blurry vision, headache. Endorses Orthopnea for many years, and uses 1 pillows. He endorses waking up gasping for air multiple times per night is not always compliant with his CPAP. He endorses numbness and tingling of the left hand when he sleeps. He was discharged 3 weeks ago (11/22-11/29) for the same issue. Cardio: Yuriy Pulm: [place] GI: [place] PMH: as stated in HPI PSH: CABG (2003), Coronary Stent (2010) Meds: as per [facility] Allx: NKDA FHx: Heart disease ( several members) SHx: denies smoking, alcohol or drug use. Retired. Present on Admission - Present on Admission Any Indicators Present on Admission: No Review of Systems - Constitutional Constitutional: Fatigue, Lethargy, Weight Gain, Weakness. absent: Anorexia, Chills, Fever - EENT Eyes: absent: Blurred Vision, Diplopia Ears: absent: Decreased Hearing, Tinnitus Nose/Mouth/Throat: absent: Nasal Congestion, Nasal Discharge, Sore Throat - Cardiovascular Cardiovascular: Chest Pain with Activity, Dyspnea on Exertion, Edema. absent: Chest Pain, Chest Pain at Rest, Diaphoresis, Lightheadedness, Palpitations, Syncope - Respiratory Respiratory: Dyspnea on Exertion. absent: Cough - Gastrointestinal Gastrointestinal: absent: Abdominal Pain, Constipation, Diarrhea, Dysphagia, Nausea, Vomiting - Genitourinary Genitourinary: absent: Difficulty Urinating, Dysuria - Musculoskeletal Musculoskeletal: Joint Swelling. absent: Numbness, Tingling - Integumentary Integumentary: Dry Skin, Jaundice. absent: Rash - Neurological Neurological: Lack of Coordination. absent: Numbness, Paresthesias, Tingling - Psychiatric Psychiatric: absent: Anxiety, Depression - Endocrine Endocrine: Fatigue Past Patient History - Infectious Disease Hx of Infectious Diseases: None - Past Medical History & Family History Past Medical History?: Yes - Past Social History Smoking Status: Never Smoked Alcohol: None Drugs: Denies - CARDIAC Hx Hypercholesterolemia: Yes Hx Hypertension: Yes - PULMONARY Hx Pneumonia: Yes - NEUROLOGICAL Hx Neurological Disorder: No - HEENT Hx HEENT Problems: No - RENAL Hx Chronic Kidney Disease: No - ENDOCRINE/METABOLIC Hx Endocrine Disorders: Yes Hx Diabetes Mellitus Type 2: Yes - HEMATOLOGICAL/ONCOLOGICAL Hx Anemia: Yes - INTEGUMENTARY Hx Dermatological Problems: No - MUSCULOSKELETAL/RHEUMATOLOGICAL Hx Musculoskeletal Disorders: No Hx Falls: No - GASTROINTESTINAL Hx Gastritis: Yes - GENITOURINARY/GYNECOLOGICAL Hx Genitourinary Disorders: No - PSYCHIATRIC Hx Depression: Yes Hx Substance Use: No - SURGICAL HISTORY Hx Coronary Artery Bypass Graft: Yes (2003) Hx Coronary Stent: Yes (2010) - ANESTHESIA Hx Anesthesia: Yes Hx Anesthesia Reactions: No Hx Malignant Hyperthermia: No Meds Allergies/Adverse Reactions: Allergies Allergy/AdvReac Type Severity Reaction Status Date / Time No Known Allergies Allergy Verified 12/25/18 14:38 Physical Exam - Constitutional Appears: No Acute Distress, Unkempt, Agitated - Head Exam Head Exam: ATRAUMATIC, NORMOCEPHALIC - Eye Exam Eye Exam: EOMI, PERRL Pupil Exam: NORMAL ACCOMODATION - ENT Exam ENT Exam: Mucous Membranes Dry - Respiratory Exam Respiratory Exam: Rales, Wheezes, NORMAL BREATHING PATTERN - Cardiovascular Exam Cardiovascular Exam: REGULAR RHYTHM, +S1, +S2. absent: Systolic Murmur - GI/Abdominal Exam GI & Abdominal Exam: Normal Bowel Sounds, Soft. absent: Firm, Guarding, Tenderness - Extremities Exam Extremities exam: Negative for: calf tenderness Additional comments: bilateral pitting edema distal to knees - Back Exam Back exam: absent: CVA tenderness (L), CVA tenderness (R) - Neurological Exam Neurological exam: Abnormal Gait, Alert, CN II-XII Intact, Oriented x3, Reflexes Normal - Psychiatric Exam Psychiatric exam: Anxious - Skin Skin Exam: Dry, Intact, Normal Color, Warm Results - Vital Signs Recent Vital Signs: Last Vital Signs Temp 98.8 F 12/25/18 19:05 Pulse 81 12/25/18 19:05 Resp 18 12/25/18 19:05 BP 140/69 12/25/18 19:05 Pulse Ox 100 12/25/18 19:05 - Labs Result Diagrams: 12/25/18 16:43 12/25/18 16:43 Labs: Laboratory Results - last 24 hr 12/25/18 12/25/18 12/25/18 16:43 16:43 16:43 WBC 15.7 H D RBC 4.37 L Hgb 10.7 L Hct 34.5 L MCV 78.9 L MCH 24.4 L MCHC 30.9 L RDW 19.8 H Plt Count 165 MPV 8.6 Neut % (Auto) 81.6 H Lymph % (Auto) 6.9 L Warren % (Auto) 11.1 H Eos % (Auto) 0.1 Baso % (Auto) 0.3 Neut # (Auto) 12.8 H Lymph # (Auto) 1.1 Warren # (Auto) 1.7 H Eos # (Auto) 0.0 Baso # (Auto) 0.0 PT 16.8 H INR 1.5 APTT 43 H Sodium 133 Potassium 3.9 Chloride 101 Carbon Dioxide 25 Anion Gap 11 BUN 35 H Creatinine 1.3 Est GFR ( Amer) > 60 Est GFR (Non-Af Amer) 56 Random Glucose 138 H D Calcium 9.6 Total Bilirubin 1.5 H AST 96 H D ALT 27 Alkaline Phosphatase 104 Troponin I 0.0720 NT-Pro-B Natriuret Pep 6980 H Total Protein 7.3 Albumin 3.8 Globulin 3.5 Albumin/Globulin Ratio 1.1 Urine Color Urine Clarity Urine pH Ur Specific [place] Urine Protein Urine Glucose (UA) Urine Ketones Urine Blood Urine Nitrate Urine Bilirubin Urine Urobilinogen Ur Leukocyte Esterase Urine WBC (Auto) Urine RBC (Auto) Ur Squamous Epith Cells Urine Bacteria 12/25/18 18:51 WBC RBC Hgb Hct MCV MCH MCHC RDW Plt Count MPV Neut % (Auto) Lymph % (Auto) Warren % (Auto) Eos % (Auto) Baso % (Auto) Neut # (Auto) Lymph # (Auto) Warren # (Auto) Eos # (Auto) Baso # (Auto) PT INR APTT Sodium Potassium Chloride Carbon Dioxide Anion Gap BUN Creatinine Est GFR ( Amer) Est GFR (Non-Af Amer) Random Glucose Calcium Total Bilirubin AST ALT Alkaline Phosphatase Troponin I NT-Pro-B Natriuret Pep Total Protein Albumin Globulin Albumin/Globulin Ratio Urine Color Yellow Urine Clarity Clear Urine pH 6.0 Ur Specific [place] 1.007 Urine Protein Negative Urine Glucose (UA) 3+ H Urine Ketones Negative Urine Blood 2+ H Urine Nitrate Negative Urine Bilirubin Negative Urine Urobilinogen Normal Ur Leukocyte Esterase Neg Urine WBC (Auto) 1 Urine RBC (Auto) 5 H Ur Squamous Epith Cells < 1 Urine Bacteria Occ H Assessment & Plan - Assessment and Plan (Free Text) Assessment: 58yo M PMH CHF s/p cardiac cath, asthma, GASTON, gastritis, CAD s/p CABG and stent, DM2 with neuropathy, and PAD/PVD admitted for CHF exacerbation. Plan: HFpEF exacarbatio, acute on chronic Pleural Effusions Hx of CAD with CABG and stent - Trop neg - ProBNP 6980 (elevated above patient's baseline) - ECHO 11/27: mod to severe aortic regurg, normal LV systolic function - Cardiac Cath 11/29: successful saphenous vein graft to obtuse marginal artery. Required two drug eluting stents. - CXR (12/25): pulm vasc congestion, L pleural effusion. - Aspirin 81mg po daily - Plavix 75mg po daily - Lasix 40mg IV Q12H - Toprol 12.5mg PO daily - Cozaar 25mg PO daily - Crestor 10mg Po qHS - Zosyn 3.375gm IVPB 18 (started 12/25) - Cardio consulted: Dr. Yuriy PALMER, daily weights, I/O Pulmonary Hypertension Asthma, Obstructive Sleep Apnea - BiPAP - Duonebs - Breo Ellipta 1 puff INH daily - Ventolin 2 puff IH rQ6 prn - Pulm consulted: Dr. Akers Diabetes Mellitus with Neuropathy - f/u Hgb A1c - [facility] - hypoglycemia protocol - Januvia 100mg po daily - Neurontin 100mg po bid - Cymbalta 60mg po daily PPx - DVT: Heparin 5000u SC q8 - GI: Pepcid 40mg po daily - Diet: HHD - PT/OT Past Patient History - Infectious Disease Hx of Infectious Diseases: None - Past Medical History & Family History Past Medical History?: Yes - Past Social History Smoking Status: Never Smoked - CARDIAC Hx Hypercholesterolemia: Yes Hx Hypertension: Yes - PULMONARY Hx Pneumonia: Yes - NEUROLOGICAL Hx Neurological Disorder: No - HEENT Hx HEENT Problems: No - RENAL Hx Chronic Kidney Disease: No - ENDOCRINE/METABOLIC Hx Endocrine Disorders: Yes Hx Diabetes Mellitus Type 2: Yes - HEMATOLOGICAL/ONCOLOGICAL Hx Anemia: Yes - INTEGUMENTARY Hx Dermatological Problems: No - MUSCULOSKELETAL/RHEUMATOLOGICAL Hx Musculoskeletal Disorders: No Hx Falls: No - GASTROINTESTINAL Hx Gastritis: Yes - GENITOURINARY/GYNECOLOGICAL Hx Genitourinary Disorders: No - PSYCHIATRIC Hx Depression: Yes Hx Substance Use: No - SURGICAL HISTORY Hx Coronary Artery Bypass Graft: Yes (2003) Hx Coronary Stent: Yes (2010) - ANESTHESIA Hx Anesthesia: Yes Hx Anesthesia Reactions: No Hx Malignant Hyperthermia: No Meds Allergies/Adverse Reactions: Allergies Allergy/AdvReac Type Severity Reaction Status Date / Time No Known Allergies Allergy Verified 12/25/18 14:38 - Medications Medications: Current Medications Albuterol (Ventolin Hfa 90 Mcg/Actuation (8 G)) 2 puff IH RQ6 PRN PRN Reason: Shortness of Breath Last Admin: 12/26/18 07:50 Dose: 2 puff Aspirin (Ecotrin) 81 mg PO DAILY [facility] Last Admin: 12/26/18 10:50 Dose: 81 mg Ciprofloxacin (Ciloxan 0.3% [facility]) 2 drop OU Q4 [facility] Last Admin: 12/26/18 21:00 Dose: 1 applic Clopidogrel Bisulfate (Plavix) 75 mg PO DAILY [facility] Last Admin: 12/26/18 10:51 Dose: 75 mg Dextrose (Dextrose 50% Inj) 0 ml IV STAT PRN; Protocol PRN Reason: Hypoglycemia Protocol Dextrose (Glutose 15) 0 gm PO ONCE PRN; Protocol PRN Reason: Hypoglycemia Protocol Duloxetine HCl (Cymbalta) 60 mg PO DAILY [facility] Last Admin: 12/26/18 10:51 Dose: 60 mg Famotidine (Pepcid) 40 mg PO DAILY [facility] Last Admin: 12/26/18 10:51 Dose: 40 mg Fluticasone/Vilanterol (Breo Ellipta 100-25 Mcg Inh) 1 puff INH RQD [facility] Last Admin: 12/26/18 07:50 Dose: 1 puff Furosemide (Lasix) 40 mg IVP BID [facility] Gabapentin (Neurontin) 100 mg PO BID [facility] Last Admin: 12/26/18 17:24 Dose: 100 mg Glucagon (Glucagen Diagnostic Kit) 0 mg IM STAT PRN; Protocol PRN Reason: Hypoglycemia Protocol Heparin Sodium (Porcine) (Heparin) 5,000 units SC Q8 [facility] Last Admin: 12/26/18 21:42 Dose: 5,000 units Dextrose (Dextrose 5% In Water 1000 Ml) 1,000 mls @ 0 mls/hr IV .Q0M PRN; Protocol PRN Reason: Hypoglycemia Protocol Piperacillin Sod/Tazobactam Sod (Zosyn 3.375 Gm Iv Premix) 3.375 gm in 50 mls @ 100 mls/hr IVPB Q8H [facility]; Protocol Last Admin: 12/26/18 21:00 Dose: 100 mls/hr Insulin Aspart (Novolog) 0 unit SC ACHS [facility]; Protocol Last Admin: 12/26/18 21:41 Dose: Not Given Losartan Potassium (Cozaar) 25 mg PO DAILY [facility] Last Admin: 12/26/18 10:50 Dose: 25 mg Metoprolol Succinate (Toprol Xl) 12.5 mg PO DAILY [facility] Last Admin: 12/26/18 10:53 Dose: Not Given Nystatin (Nystatin Oral Susp) 5 ml PO QID [facility] Last Admin: 12/26/18 21:42 Dose: 5 ml Rosuvastatin Calcium (Crestor) 10 mg PO HS [facility] Last Admin: 12/26/18 21:42 Dose: 10 mg Sitagliptin Phosphate (Januvia) 100 mg PO DAILY [facility] Last Admin: 12/26/18 10:50 Dose: 100 mg Results - Vital Signs Recent Vital Signs: Last Vital Signs Temp 98.0 F 12/26/18 15:00 Pulse 69 12/26/18 15:00 Resp 20 12/26/18 15:00 BP 115/70 12/26/18 17:22 Pulse Ox 99 12/26/18 15:00 - Labs Result Diagrams: 12/26/18 07:14 12/26/18 07:14 Labs: Laboratory Results - last 24 hr 12/26/18 12/26/18 12/26/18 06:49 07:14 07:14 WBC 12.8 H RBC 4.22 L Hgb 10.5 L Hct 32.5 L MCV 77.1 L MCH 24.9 L MCHC 32.3 L RDW 18.9 H Plt Count 154 MPV 8.9 Neut % (Auto) 74.7 Lymph % (Auto) 10.9 L Warren % (Auto) 13.7 H Eos % (Auto) 0.4 Baso % (Auto) 0.3 Neut # (Auto) 9.6 H Lymph # (Auto) 1.4 Warren # (Auto) 1.8 H Eos # (Auto) 0.0 Baso # (Auto) 0.0 Sodium 136 Potassium 2.6 L Chloride 101 Carbon Dioxide 26 Anion Gap 11 BUN 31 H Creatinine 1.5 Est GFR ( Amer) 58 Est GFR (Non-Af Amer) 48 POC Glucose (mg/dL) 94 Random Glucose 86 D Hemoglobin A1c Calcium 9.5 Phosphorus 2.6 Magnesium 2.4 H Total Bilirubin 1.6 H AST 83 H ALT 29 Alkaline Phosphatase 89 Total Protein 6.6 Albumin 3.2 L Globulin 3.3 Albumin/Globulin Ratio 1.0 12/26/18 12/26/18 12/26/18 07:14 11:15 16:04 WBC RBC Hgb Hct MCV MCH MCHC RDW Plt Count MPV Neut % (Auto) Lymph % (Auto) Warren % (Auto) Eos % (Auto) Baso % (Auto) Neut # (Auto) Lymph # (Auto) Warren # (Auto) Eos # (Auto) Baso # (Auto) Sodium Potassium Chloride Carbon Dioxide Anion Gap BUN Creatinine Est GFR ( Amer) Est GFR (Non-Af Amer) POC Glucose (mg/dL) 253 H 128 H Random Glucose Hemoglobin A1c 6.7 H Calcium Phosphorus Magnesium Total Bilirubin AST ALT Alkaline Phosphatase Total Protein Albumin Globulin Albumin/Globulin Ratio 12/26/18 21:20 WBC RBC Hgb Hct MCV MCH MCHC RDW Plt Count MPV Neut % (Auto) Lymph % (Auto) Warren % (Auto) Eos % (Auto) Baso % (Auto) Neut # (Auto) Lymph # (Auto) Warren # (Auto) Eos # (Auto) Baso # (Auto) Sodium Potassium Chloride Carbon Dioxide Anion Gap BUN Creatinine Est GFR ( Amer) Est GFR (Non-Af Amer) POC Glucose (mg/dL) 150 H Random Glucose Hemoglobin A1c Calcium Phosphorus Magnesium Total Bilirubin AST ALT Alkaline Phosphatase Total Protein Albumin Globulin Albumin/Globulin Ratio
[2018-12-27] MEDS: Ciprofloxacin 0.3% OPTH SOLN OU SCH ×6 (00:51→20:38)
--- NOTE | 2018-12-27 02:50 | PN ---
DATE: 12/26/2018 LOCATION: Room 563, bed A. REQUESTED BY: Derrick Randall MD REASON FOR FOLLOWUP: Increased BUN and creatinine and congestive heart failure. SUBJECTIVE: Mr. Phelps is a 58-year-old elderly, obese male with past medical history significant for longstanding hypertension, diabetes, hyperlipidemia, coronary artery disease, status post CABG, multiple stents, and severe aortic regurgitation, was admitted with the chief complaint of bilateral lower extremity swelling, shortness of breath, and also abdominal distention, and edema of the upper extremities. The patient was also found to have CHF, started on IV Lasix. The patient is feeling slightly better, not in distress. Denies any chest pain or palpitation. Denies any fever or cough. The patient is out of bed to chair. Still complains of swelling of the legs. OBJECTIVE: VITAL SIGNS: Blood pressure 121/67, pulse 75, respirations 20, temperature 98.1, saturation 96%. Height 5 feet 5 inches, weight is 160 pounds. GENERAL: Mr. Phelps is a 58-year-old elderly obese male, well built, well nourished, not in distress. HEENT: Pupils normal and reactive to light and accommodation. Conjunctivae pink. Sclerae anicteric. Tongue is moist. Trachea is midline. LUNGS: Symmetric on both sides. Bilateral crackles present up to half of the chest. CVS: [place] at the fifth intercostal space, midclavicular line. S1 and S2 audible. No murmur or gallop. ABDOMEN: Normal in appearance, soft, tympanitic. No guarding. No rigidity. Slightly protuberant. No abdominal bruits. 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 Nonfocal neuro examination. Cranial nerves II through XII grossly intact. Sensory and motor system is within normal limits. EXTREMITIES: No cyanosis. No clubbing. No edema. CURRENT MEDICATIONS: Include as follows BREO ELLIPTA, ciprofloxacin eye drops, losartan 25 mg p.o. daily, Crestor 10 mg at bedtime, Cymbalta 60 mg p.o. daily, aspirin 81 mg daily, subcu heparin 5000 units every 8 hours, Januvia 100 mg p.o. daily, Lasix 40 mg IV every 12 hours, gabapentin 100 mg p.o. b.i.d., Pepcid 240 mg daily, Plavix 75 mg daily, metoprolol 12.5 mg p.o. daily, albuterol inhaler and Zosyn 3.375 g IV every 8 hours. LABORATORY DATA: Include as follows, WBC 12.8, hemoglobin 10.5, hematocrit 32.5, MCV 77, and platelet 154. Sodium 136, potassium 2.6, chloride 101, CO2 of 26, BUN 31, creatinine 1.5, glucose 86, hemoglobin A1c 6.7, calcium 9.5, phosphorus 2.6, and total bili 1.6. AST 83, ALT 29, alk phos 89, total protein 6.6, and albumin 3.2. DIAGNOSTIC DATA: Chest x-ray, pulmonary vascular congestion, left pleural effusion. ASSESSMENT: In summary, Mr. Phelps is a 58-year-old elderly male with obesity and also hypertension, diabetes, hyperlipidemia, coronary artery disease status post coronary artery bypass graft and multiple stent placement, and severe aortic regurgitation who was admitted with bilateral leg swelling, abdominal distention, edema of the arms, shortness of breath with bilateral crackles, and increased BUN and creatinine. 1. Chronic kidney disease III, cannot rule out acute renal failure secondary to severe aortic regurgitation and possible decreased renal perfusion. 2. Congestive heart failure. 3. Diabetes. 4. Hypertension. 5. Fluid overload. PLAN: We will increase Lasix to 60 mg every 12 hours to see if the patient can tolerate for systolic blood pressure less than 110 and if cannot tolerate, we will decrease the Lasix to 40 mg IV b.i.d. Restrict fluids to 1 liter per day. Continue to monitor electrolytes and hypokalemia, agree to supplement potassium, KCl 40 mEq p.o. x2 doses and repeat BMP and magnesium level in a.m. We will follow with you. Thank you for allowing me to participate in your patient's care. Annmarie Nixon MD
[2018-12-27] MEDS: Piperacill/Tazo 3.375gm in Dex 3.375 GM/50 ML BAG IVPB SCH ×3 (05:16→20:38)
[2018-12-27 07:27] LABS: BASO # 0.1 K/uL (0.0-0.2); BASO % 0.6 % (0.0-2.0); EOS # 0.1 K/uL (0.0-0.7); EOS % 1.2 % (0.0-4.0); HEMOGLOBIN 10.9 g/dL (12.0-18.0); LYMPH # 1.5 K/uL (1.0-4.3); MEAN CELL VOLUME 78.4 fL (80.0-94.0); MEAN CORPUSCULAR HEMOGLOBIN 24.9 pg (27.0-31.0); MEAN CORPUSCULAR HGB CONC 31.7 g/dL (33.0-37.0); MEAN PLATELET VOLUME 9.1 fL (7.2-11.7); MONO # 1.4 K/uL (0.0-0.8); NEUT # 6.7 K/uL (1.8-7.0); NEUT % 69.2 % (50.0-75.0); NRBC % 0.1 % (0.0-2.0); RBC 4.37 Mil/uL (4.40-5.90); RED CELL DISTRIBUTION WIDTH 19.7 % (11.5-14.5); WHITE BLOOD COUNT 9.7 K/uL (4.8-10.8)
[2018-12-27 07:45] LABS: ALBUMIN 3.3 g/dL (3.5-5.0); CALCIUM 9.2 mg/dl (8.6-10.4)
[2018-12-27] MEDS: (Novolog) Insulin Aspart, Recombinant 100 u/ml 10 ml vial SC SCH ×4 (08:06→21:33)
[2018-12-27] MEDS: Metoprolol Succinate 12.5 mg XL Tab PO SCH (09:40)
[2018-12-27] MEDS: Nystatin 100,000 Units/ml Oral Susp 5 ml UD PO SCH ×4 (11:00→21:34)
[2018-12-27] MEDS ORDERED: Potassium Chloride 20 mEq ER Tab PO SCH (12:00)
--- NOTE | 2018-12-27 12:00 | CP.PCM.PN ---
Subjective - Date & Time of Evaluation Date of Evaluation: 12/27/18 Time of Evaluation: 15:40 - Subjective Subjective: HOSPITALIST SERVICE Pt s/e at bedside, complains of persistent SOB and intolerance of physical exertion, pt reports persistent leg swelling as well. Pt als complains of L eye pain and redness. Denies chest pain fc nv. Objective - Vital Signs/Intake and Output Vital Signs (last 24 hours): Temp Pulse Resp BP Pulse Ox 98.1 F 75 20 159/72 H 96 12/27/18 07:05 12/27/18 09:07 12/27/18 07:05 12/27/18 09:41 12/27/18 07:05 Intake and Output: 12/27/18 12/27/18 06:59 18:59 Intake Total 230 150 Output Total 780 350 Balance -550 -200 - Medications Medications: Current Medications Albuterol (Ventolin Hfa 90 Mcg/Actuation (8 G)) 2 puff IH RQ6 PRN PRN Reason: Shortness of Breath Last Admin: 12/26/18 07:50 Dose: 2 puff Aspirin (Ecotrin) 81 mg PO DAILY [facility] Last Admin: 12/27/18 09:40 Dose: 81 mg Ciprofloxacin (Ciloxan 0.3% Ophth Soln) 2 drop OU Q4 [facility] Last Admin: 12/27/18 08:47 Dose: 1 applic Clopidogrel Bisulfate (Plavix) 75 mg PO DAILY [facility] Last Admin: 12/27/18 09:39 Dose: 75 mg Dextrose (Dextrose 50% Inj) 0 ml IV STAT PRN; Protocol PRN Reason: Hypoglycemia Protocol Dextrose (Glutose 15) 0 gm PO ONCE PRN; Protocol PRN Reason: Hypoglycemia Protocol Duloxetine HCl (Cymbalta) 60 mg PO DAILY [facility] Last Admin: 12/27/18 11:00 Dose: 60 mg Famotidine (Pepcid) 40 mg PO DAILY [facility] Last Admin: 12/27/18 09:39 Dose: 40 mg Fluticasone/Vilanterol (Breo Ellipta 100-25 Mcg Inh) 1 puff INH RQD [facility] Last Admin: 12/26/18 07:50 Dose: 1 puff Furosemide (Lasix) 40 mg IVP BID [facility] Last Admin: 12/27/18 09:41 Dose: 40 mg Gabapentin (Neurontin) 100 mg PO BID [facility] Last Admin: 12/27/18 09:40 Dose: 100 mg Glucagon (Glucagen Diagnostic Kit) 0 mg IM STAT PRN; Protocol PRN Reason: Hypoglycemia Protocol Heparin Sodium (Porcine) (Heparin) 5,000 units SC Q8 [facility] Last Admin: 12/27/18 05:16 Dose: 5,000 units Dextrose (Dextrose 5% In Water 1000 Ml) 1,000 mls @ 0 mls/hr IV .Q0M PRN; Protocol PRN Reason: Hypoglycemia Protocol Piperacillin Sod/Tazobactam Sod (Zosyn 3.375 Gm Iv Premix) 3.375 gm in 50 mls @ 100 mls/hr IVPB Q8H [facility]; Protocol Last Admin: 12/27/18 05:16 Dose: 100 mls/hr Insulin Aspart (Novolog) 0 unit SC ACHS [facility]; Protocol Last Admin: 12/27/18 08:06 Dose: Not Given Losartan Potassium (Cozaar) 25 mg PO DAILY [facility] Last Admin: 12/27/18 09:39 Dose: 25 mg Metoprolol Succinate (Toprol Xl) 12.5 mg PO DAILY [facility] Last Admin: 12/27/18 09:40 Dose: 12.5 mg Nystatin (Nystatin Oral Susp) 5 ml PO QID [facility] Last Admin: 12/27/18 11:00 Dose: 5 ml Potassium Chloride (K-Dur 20 Meq Er Tab) 40 meq PO Q2 [facility] Stop: 12/27/18 14:01 Rosuvastatin Calcium (Crestor) 10 mg PO HS [facility] Last Admin: 12/26/18 21:42 Dose: 10 mg Sitagliptin Phosphate (Januvia) 100 mg PO DAILY [facility] Last Admin: 12/27/18 09:39 Dose: 100 mg - Labs Labs: 12/27/18 07:00 12/27/18 07:00 PT 16.8 SECONDS (9.7-12.2) H 12/25/18 16:43 INR 1.5 12/25/18 16:43 APTT 43 SECONDS (21-34) H 12/25/18 16:43 - Additional Findings Additional findings: - Head Exam Head Exam: ATRAUMATIC, NORMOCEPHALIC - Eye Exam Eye Exam: EOMI, PERRL, redness and conjuctival injection noted infor portion of L sclera Pupil Exam: NORMAL ACCOMODATION - ENT Exam ENT Exam: Mucous Membranes Dry - Respiratory Exam Respiratory Exam: Rales, Wheezes, NORMAL BREATHING PATTERN - Cardiovascular Exam Cardiovascular Exam: REGULAR RHYTHM, +S1, +S2. absent: Systolic Murmur - GI/Abdominal Exam GI & Abdominal Exam: Normal Bowel Sounds, Soft. absent: Firm, Guarding, Tenderness - Extremities Exam Extremities exam: Negative for: calf tenderness Additional comments: bilateral pitting edema distal to distal knees, +2 - Back Exam Back exam: absent: CVA tenderness (L), CVA tenderness (R) - Neurological Exam Neurological exam: Abnormal Gait, Alert, CN II-XII Intact, Oriented x3, Reflexes Normal - Psychiatric Exam Psychiatric exam: Anxious - Skin Skin Exam: Dry, Intact, Normal Color, Warm Assessment and Plan - Assessment and Plan (Free Text) Assessment: 58yo M PMH CHF s/p cardiac cath, asthma, GASTON, gastritis, CAD s/p CABG and stent, DM2 with neuropathy, and PAD/PVD admitted for CHF exacerbation. Plan: HFpEF exacarbatio, acute on chronic Pleural Effusions Hx of CAD with CABG and stent - Trop neg - ProBNP 6980 (elevated above patient's baseline) - ECHO 11/27: mod to severe aortic regurg, normal LV systolic function - Cardiac Cath 11/29: successful saphenous vein graft to obtuse marginal artery. Required two drug eluting stents. - CXR (12/25): pulm vasc congestion, L pleural effusion. - Aspirin 81mg po daily - Plavix 75mg po daily - Lasix 40mg IV Q12H - Toprol 12.5mg PO daily - Cozaar 25mg PO daily - Crestor 10mg Po qHS - Zosyn 3.375gm IVPB 18 (started 12/25) - Cardio consulted: Dr. Yan - TELE, daily weights, I/O - Nephro Dr Brown consulted replete k, 1L fluid restriction Pulmonary Hypertension Asthma, Obstructive Sleep Apnea - BiPAP - Duonebs - Breo Ellipta 1 puff INH daily - Ventolin 2 puff IH rQ6 prn - Pulm consulted: Dr. Akers Diabetes Mellitus with Neuropathy - 6.7 Hgb A1c - Accuchecks ACHS - ISS - hypoglycemia protocol - Januvia 100mg po daily - Neurontin 100mg po bid - Cymbalta 60mg po daily PPx - DVT: Heparin 5000u SC q8 - GI: Pepcid 40mg po daily - Diet: HHD - PT/OT
--- NOTE | 2018-12-27 14:02 | CP.PCM.PN ---
Subjective - Date & Time of Evaluation Date of Evaluation: 12/27/18 Time of Evaluation: 14:01 Objective - Vital Signs/Intake and Output Vital Signs (last 24 hours): Temp Pulse Resp BP Pulse Ox 98.1 F 75 20 159/72 H 96 12/27/18 07:05 12/27/18 09:07 12/27/18 07:05 12/27/18 09:41 12/27/18 07:05 Intake and Output: 12/27/18 12/27/18 06:59 18:59 Intake Total 230 150 Output Total 780 350 Balance -550 -200 - Medications Medications: Current Medications Albuterol (Ventolin Hfa 90 Mcg/Actuation (8 G)) 2 puff IH RQ6 PRN PRN Reason: Shortness of Breath Last Admin: 12/26/18 07:50 Dose: 2 puff Aspirin (Ecotrin) 81 mg PO DAILY [facility] Last Admin: 12/27/18 09:40 Dose: 81 mg Ciprofloxacin (Ciloxan 0.3% Oph Soln) 2 drop OU Q4 [facility] Last Admin: 12/27/18 08:47 Dose: 1 applic Clopidogrel Bisulfate (Plavix) 75 mg PO DAILY [facility] Last Admin: 12/27/18 09:39 Dose: 75 mg Dextrose (Dextrose 50% Inj) 0 ml IV STAT PRN; Protocol PRN Reason: Hypoglycemia Protocol Dextrose (Glutose 15) 0 gm PO ONCE PRN; Protocol PRN Reason: Hypoglycemia Protocol Duloxetine HCl (Cymbalta) 60 mg PO DAILY [facility] Last Admin: 12/27/18 11:00 Dose: 60 mg Famotidine (Pepcid) 40 mg PO DAILY [facility] Last Admin: 12/27/18 09:39 Dose: 40 mg Fluticasone/Vilanterol (Breo Ellipta 100-25 Mcg Inh) 1 puff INH RQD [facility] Last Admin: 12/26/18 07:50 Dose: 1 puff Furosemide (Lasix) 40 mg IVP DAILY [facility] Gabapentin (Neurontin) 100 mg PO BID [facility] Last Admin: 12/27/18 09:40 Dose: 100 mg Glucagon (Glucagen Diagnostic Kit) 0 mg IM STAT PRN; Protocol PRN Reason: Hypoglycemia Protocol Heparin Sodium (Porcine) (Heparin) 5,000 units SC Q8 [facility] Last Admin: 12/27/18 13:47 Dose: 5,000 units Dextrose (Dextrose 5% In Water 1000 Ml) 1,000 mls @ 0 mls/hr IV .Q0M PRN; Protocol PRN Reason: Hypoglycemia Protocol Piperacillin Sod/Tazobactam Sod (Zosyn 3.375 Gm Iv Premix) 3.375 gm in 50 mls @ 100 mls/hr IVPB Q8H [facility]; Protocol Last Admin: 12/27/18 13:49 Dose: 100 mls/hr Insulin Aspart (Novolog) 0 unit SC ACHS [facility]; Protocol Last Admin: 12/27/18 12:35 Dose: 3 unit Losartan Potassium (Cozaar) 25 mg PO DAILY [facility] Metoprolol Succinate (Toprol Xl) 12.5 mg PO DAILY [facility] Last Admin: 12/27/18 09:40 Dose: 12.5 mg Nystatin (Nystatin Oral Susp) 5 ml PO QID [facility] Last Admin: 12/27/18 13:47 Dose: 5 ml Potassium Chloride (K-Dur 20 Meq Er Tab) 40 meq PO STAT [facility] Stop: 12/27/18 14:01 Rosuvastatin Calcium (Crestor) 10 mg PO HS [facility] Last Admin: 12/26/18 21:42 Dose: 10 mg Sitagliptin Phosphate (Januvia) 100 mg PO DAILY [facility] Last Admin: 12/27/18 09:39 Dose: 100 mg - Labs Labs: 12/27/18 07:00 12/27/18 07:00 PT 16.8 SECONDS (9.7-12.2) H 12/25/18 16:43 INR 1.5 12/25/18 16:43 APTT 43 SECONDS (21-34) H 12/25/18 16:43
[2018-12-27] MEDS ORDERED: Potassium Chloride 20 mEq ER Tab PO ONE (14:15)
--- NOTE | 2018-12-27 18:16 | CP.PCM.PN ---
Subjective - Date & Time of Evaluation Date of Evaluation: 12/27/18 Time of Evaluation: 18:15 - Subjective Subjective: pt is seen and examined,m follow up consult is dictated #[id number] decrease lasix to 40 mg ivp qd hold losartan Objective - Vital Signs/Intake and Output Vital Signs (last 24 hours): Temp Pulse Resp BP Pulse Ox 97.9 F 76 20 99/61 L 97 12/27/18 15:00 12/27/18 15:00 12/27/18 15:00 12/27/18 15:00 12/27/18 15:00 Intake and Output: 12/27/18 12/27/18 06:59 18:59 Intake Total 230 350 Output Total 780 900 Balance -550 -550 - Medications Medications: Current Medications Albuterol (Ventolin Hfa 90 Mcg/Actuation (8 G)) 2 puff IH RQ6 PRN PRN Reason: Shortness of Breath Last Admin: 12/26/18 07:50 Dose: 2 puff Aspirin (Ecotrin) 81 mg PO DAILY [facility] Last Admin: 12/27/18 09:40 Dose: 81 mg Ciprofloxacin (Ciloxan 0.3% Oph Soln) 2 drop OU Q4 [facility] Last Admin: 12/27/18 16:59 Dose: 1 applic Clopidogrel Bisulfate (Plavix) 75 mg PO DAILY [facility] Last Admin: 12/27/18 09:39 Dose: 75 mg Dextrose (Dextrose 50% Inj) 0 ml IV STAT PRN; Protocol PRN Reason: Hypoglycemia Protocol Dextrose (Glutose 15) 0 gm PO ONCE PRN; Protocol PRN Reason: Hypoglycemia Protocol Duloxetine HCl (Cymbalta) 60 mg PO DAILY [facility] Last Admin: 12/27/18 11:00 Dose: 60 mg Famotidine (Pepcid) 40 mg PO DAILY [facility] Last Admin: 12/27/18 09:39 Dose: 40 mg Fluticasone/Vilanterol (Breo Ellipta 100-25 Mcg Inh) 1 puff INH RQD [facility] Last Admin: 12/26/18 07:50 Dose: 1 puff Furosemide (Lasix) 40 mg IVP DAILY [facility] Gabapentin (Neurontin) 100 mg PO BID [facility] Last Admin: 12/27/18 17:07 Dose: 100 mg Glucagon (Glucagen Diagnostic Kit) 0 mg IM STAT PRN; Protocol PRN Reason: Hypoglycemia Protocol Heparin Sodium (Porcine) (Heparin) 5,000 units SC Q8 [facility] Last Admin: 12/27/18 13:47 Dose: 5,000 units Dextrose (Dextrose 5% In Water 1000 Ml) 1,000 mls @ 0 mls/hr IV .Q0M PRN; Protocol PRN Reason: Hypoglycemia Protocol Piperacillin Sod/Tazobactam Sod (Zosyn 3.375 Gm Iv Premix) 3.375 gm in 50 mls @ 100 mls/hr IVPB Q8H [facility]; Protocol Last Admin: 12/27/18 13:49 Dose: 100 mls/hr Insulin Aspart (Novolog) 0 unit SC ACHS [facility]; Protocol Last Admin: 12/27/18 16:58 Dose: 2 unit Losartan Potassium (Cozaar) 25 mg PO DAILY [facility] Last Admin: 12/27/18 14:02 Dose: Not Given Metoprolol Succinate (Toprol Xl) 12.5 mg PO DAILY [facility] Last Admin: 12/27/18 09:40 Dose: 12.5 mg Nystatin (Nystatin Oral Susp) 5 ml PO QID [facility] Last Admin: 12/27/18 17:07 Dose: 5 ml Rosuvastatin Calcium (Crestor) 10 mg PO HS [facility] Last Admin: 12/26/18 21:42 Dose: 10 mg Sitagliptin Phosphate (Januvia) 100 mg PO DAILY [facility] Last Admin: 12/27/18 09:39 Dose: 100 mg - Labs Labs: 12/27/18 07:00 12/27/18 07:00 PT 16.8 SECONDS (9.7-12.2) H 12/25/18 16:43 INR 1.5 12/25/18 16:43 APTT 43 SECONDS (21-34) H 12/25/18 16:43
--- NOTE | 2018-12-27 22:45 | CARD ---
APPROVED REPORT Date of service: 12/25/2018 EKG Measurement Heart [id number] <Conclusion> Normal sinus rhythm Rightward axis ST depression, consider subendocardial injury Prolonged QT Abnormal ECG
[2018-12-28] MEDS: Ciprofloxacin 0.3% OPTH SOLN OU SCH ×7 (00:08→23:38)
--- NOTE | 2018-12-28 00:43 | CP.PCM.PN ---
Subjective - Date & Time of Evaluation Date of Evaluation: 12/27/18 Time of Evaluation: 16:50 - Subjective Subjective: Admitted for anasrca Improving with IV lasix Denies chest pain +Dyspnea Objective - Vital Signs/Intake and Output Vital Signs (last 24 hours): Temp Pulse Resp BP Pulse Ox 98.3 F 74 20 101/65 100 12/27/18 23:00 12/27/18 23:00 12/27/18 23:00 12/27/18 23:00 12/27/18 23:00 Intake and Output: 12/27/18 12/28/18 18:59 06:59 Intake Total 350 300 Output Total 900 700 Balance -550 -400 - Medications Medications: Current Medications Albuterol (Ventolin Hfa 90 Mcg/Actuation (8 G)) 2 puff IH RQ6 PRN PRN Reason: Shortness of Breath Last Admin: 12/26/18 07:50 Dose: 2 puff Aspirin (Ecotrin) 81 mg PO DAILY [facility] Last Admin: 12/27/18 09:40 Dose: 81 mg Ciprofloxacin (Ciloxan 0.3% [facility]) 2 drop OU Q4 [facility] Last Admin: 12/28/18 00:08 Dose: 1 applic Clopidogrel Bisulfate (Plavix) 75 mg PO DAILY [facility] Last Admin: 12/27/18 09:39 Dose: 75 mg Dextrose (Dextrose 50% Inj) 0 ml IV STAT PRN; Protocol PRN Reason: Hypoglycemia Protocol Dextrose (Glutose 15) 0 gm PO ONCE PRN; Protocol PRN Reason: Hypoglycemia Protocol Duloxetine HCl (Cymbalta) 60 mg PO DAILY [facility] Last Admin: 12/27/18 11:00 Dose: 60 mg Famotidine (Pepcid) 40 mg PO DAILY [facility] Last Admin: 12/27/18 09:39 Dose: 40 mg Fluticasone/Vilanterol (Breo Ellipta 100-25 Mcg Inh) 1 puff INH RQD [facility] Last Admin: 12/26/18 07:50 Dose: 1 puff Furosemide (Lasix) 40 mg IVP DAILY [facility] Gabapentin (Neurontin) 100 mg PO BID [facility] Last Admin: 12/27/18 17:07 Dose: 100 mg Glucagon (Glucagen Diagnostic Kit) 0 mg IM STAT PRN; Protocol PRN Reason: Hypoglycemia Protocol Heparin Sodium (Porcine) (Heparin) 5,000 units SC Q8 [facility] Last Admin: 12/27/18 21:34 Dose: 5,000 units Dextrose (Dextrose 5% In Water 1000 Ml) 1,000 mls @ 0 mls/hr IV .Q0M PRN; Protocol PRN Reason: Hypoglycemia Protocol Piperacillin Sod/Tazobactam Sod (Zosyn 3.375 Gm Iv Premix) 3.375 gm in 50 mls @ 100 mls/hr IVPB Q8H [facility]; Protocol Last Admin: 12/27/18 20:38 Dose: 100 mls/hr Insulin Aspart (Novolog) 0 unit SC ACHS [facility]; Protocol Last Admin: 12/27/18 21:33 Dose: Not Given Losartan Potassium (Cozaar) 25 mg PO DAILY [facility] Last Admin: 12/27/18 14:02 Dose: Not Given Metoprolol Succinate (Toprol Xl) 12.5 mg PO DAILY [facility] Last Admin: 12/27/18 09:40 Dose: 12.5 mg Nystatin (Nystatin Oral Susp) 5 ml PO QID [facility] Last Admin: 12/27/18 21:34 Dose: 5 ml Rosuvastatin Calcium (Crestor) 10 mg PO HS [facility] Last Admin: 12/27/18 21:34 Dose: 10 mg Sitagliptin Phosphate (Januvia) 100 mg PO DAILY [facility] Last Admin: 12/27/18 09:39 Dose: 100 mg - Labs Labs: 12/27/18 07:00 12/27/18 07:00 PT 16.8 SECONDS (9.7-12.2) H 12/25/18 16:43 INR 1.5 12/25/18 16:43 APTT 43 SECONDS (21-34) H 12/25/18 16:43
--- NOTE | 2018-12-28 01:22 | PN ---
DATE: 12/27/2018 FOLLOWUP RENAL CONSULTATION LOCATION: [facility], room 563, bed A. REQUESTING PHYSICIAN: Victoriano Randall MD REASON FOR FOLLOWUP: Acute renal failure and CHF with edema, fluid overload. SUBJECTIVE: Mr. Phelps is a 58-year-old elderly obese male with a history of longstanding hypertension, diabetes, hyperlipidemia, coronary artery disease status post CABG, status post multiple stents placement, chronic kidney disease and also severe aortic regurgitation, who was admitted with dyspnea on exertion, also shortness of breath and bilateral leg swelling. The patient was started on gentle diuresis. The patient is ambulating. The patient is feeling much better today with decreasing edema. No chest pain. No palpitation. No nausea, vomiting, diarrhea. PHYSICAL EXAMINATION: As follows: VITAL SIGNS: Blood pressure this morning 121/66, pulse 73, respirations 20, temperature 98.1. Height 5 feet 5 inches and weight is 160. GENERAL: Mr. Phelps is a 58-year-old obese male, well-built, well-nourished, not in distress. HEENT: Pupils normal, reactive to light and accommodation. Conjunctivae pink. Sclerae anicteric. Tongue is moist and trachea is midline. LUNGS: Symmetric on both sides. Bilateral breath sounds present. Occasional basal crackles present, much better. CARDIOVASCULAR SYSTEM: Tyner at the fifth intercostal space, midclavicular line. S1 and S2 audible. No murmur. No gallop. ABDOMEN: Protuberant, soft, tympanitic. No guarding. No rigidity. No splenomegaly. CENTRAL NERVOUS SYSTEM: The patient is alert, awake, oriented x3. Nonfocal neuro examination. Cranial nerves II-XII grossly intact. Sensory and motor system within normal limits. EXTREMITIES: No cyanosis, no clubbing. The patient has 2+ edema in both lower extremities. I and Os: Intake as of last 24 hours is 926 and output is 1800. CURRENT MEDICATIONS: Include as follows: Breo Ellipta, ciprofloxacin drops, losartan 25 mg p.o. daily, Crestor 10 mg p.o. at bedtime, Cymbalta 60 mg p.o. daily, also aspirin 81 mg daily, subcu heparin 5000 units every 8 hours, Januvia 100 mg p.o. daily, Lasix 40 mg IV daily, Neurontin 100 mg p.o. b.i.d., Pepcid 40 mg p.o. daily, Plavix 75 mg daily, metoprolol 12.5 mg p.o. daily, albuterol inhaler, Zosyn 3.375 g IV every 8 hours. LABORATORY DATA: Include as follows: As of 12/27/2018, WBC 9.7, hemoglobin 10.9, hematocrit is 34.3, platelets 157. Sodium 139, potassium is 3, chloride 102, CO2 29, BUN 13, creatinine 1.7, glucose 82, calcium 9.2, phosphorus 2.7, magnesium 2.5. Total bili 1.4, AST 73, ALT 30, alkaline phosphatase 86, total protein 6.5, albumin is 3.3. ASSESSMENT AND PLAN: In summary, Mr. Phelps is a 58-year-old elderly obese male with a history of hypertension, diabetes, hyperlipidemia, coronary artery disease status post coronary artery bypass graft, status post multiple stents and severe aortic regurgitation, was admitted with dyspnea on exertion, bilateral leg swelling and also edema of the upper extremities, not on any diuretics at home, started on intravenous Lasix. 1. Acute renal failure on chronic kidney disease, most likely secondary to diuresis. 2. Congestive heart failure. 3. Severe aortic regurgitation. 4. Hypertension. Blood pressure is stable. Continue metoprolol. Continue losartan. Lasix was decreased to once a day and also restricted fluids to 1 liter per day. We will continue to monitor renal function. Case discussed with primary team and Dr. Randall also in rounds. Thank you for allowing me to participate in your patient's care. Annmarie Nixon MD
[2018-12-28] MEDS: Piperacill/Tazo 3.375gm in Dex 3.375 GM/50 ML BAG IVPB SCH ×3 (04:56→21:23)
[2018-12-28 07:34] LABS: BASO % 0.6 % (0.0-2.0); EOS # 0.2 K/uL (0.0-0.7); EOS % 2.7 % (0.0-4.0); LYMPH # 1.7 K/uL (1.0-4.3); LYMPH % 21.4 % (20.0-40.0); MEAN CELL VOLUME 78.7 fL (80.0-94.0); MEAN CORPUSCULAR HEMOGLOBIN 25.1 pg (27.0-31.0); MEAN CORPUSCULAR HGB CONC 31.8 g/dL (33.0-37.0); MEAN PLATELET VOLUME 8.4 fL (7.2-11.7); MONO # 1.1 K/uL (0.0-0.8); MONO % 14.4 % (0.0-10.0); NEUT # 4.7 K/uL (1.8-7.0); NEUT % 60.9 % (50.0-75.0); NRBC % 0.1 % (0.0-2.0); RBC 4.4 Mil/uL (4.40-5.90); WHITE BLOOD COUNT 7.8 K/uL (4.8-10.8)
[2018-12-28 07:55] LABS: ALBUMIN 3.2 g/dL (3.5-5.0); CALCIUM 9.2 mg/dl (8.6-10.4)
[2018-12-28] MEDS: (Novolog) Insulin Aspart, Recombinant 100 u/ml 10 ml vial SC SCH ×4 (08:23→21:11)
--- NOTE | 2018-12-28 09:07 | CP.PCM.PN ---
Subjective - Date & Time of Evaluation Date of Evaluation: 12/28/18 Time of Evaluation: 09:07 - Subjective Subjective: HOSPITALIST SERVICE Pt s/e at bedside, still has not improved in symptoms, also reports worsening eye pain. denies CP SOB FC NV. pt went for Echo today and found to have diastolic hf, pt understands that he we will need to be transferred to ICU for Lasix Drip, agrees with plan Objective - Vital Signs/Intake and Output Vital Signs (last 24 hours): Temp Pulse Resp BP Pulse Ox 97.8 F 80 18 129/73 100 12/28/18 07:00 12/28/18 07:00 12/28/18 07:00 12/28/18 07:00 12/28/18 07:00 Intake and Output: 12/28/18 12/28/18 06:59 18:59 Intake Total 350 Output Total 700 Balance -350 - Medications Medications: Current Medications Albuterol (Ventolin Hfa 90 Mcg/Actuation (8 G)) 2 puff IH RQ6 PRN PRN Reason: Shortness of Breath Last Admin: 12/26/18 07:50 Dose: 2 puff Aspirin (Ecotrin) 81 mg PO DAILY [facility] Last Admin: 12/27/18 09:40 Dose: 81 mg Ciprofloxacin (Ciloxan 0.3% Oph Soln) 2 drop OU Q4 [facility] Last Admin: 12/28/18 04:56 Dose: 1 applic Clopidogrel Bisulfate (Plavix) 75 mg PO DAILY [facility] Last Admin: 12/27/18 09:39 Dose: 75 mg Dextrose (Dextrose 50% Inj) 0 ml IV STAT PRN; Protocol PRN Reason: Hypoglycemia Protocol Dextrose (Glutose 15) 0 gm PO ONCE PRN; Protocol PRN Reason: Hypoglycemia Protocol Duloxetine HCl (Cymbalta) 60 mg PO DAILY [facility] Last Admin: 12/27/18 11:00 Dose: 60 mg Famotidine (Pepcid) 40 mg PO DAILY [facility] Last Admin: 12/27/18 09:39 Dose: 40 mg Fluticasone/Vilanterol (Breo Ellipta 100-25 Mcg Inh) 1 puff INH RQD [facility] Last Admin: 12/26/18 07:50 Dose: 1 puff Furosemide (Lasix) 40 mg IVP DAILY [facility] Gabapentin (Neurontin) 100 mg PO BID [facility] Last Admin: 12/27/18 17:07 Dose: 100 mg Glucagon (Glucagen Diagnostic Kit) 0 mg IM STAT PRN; Protocol PRN Reason: Hypoglycemia Protocol Heparin Sodium (Porcine) (Heparin) 5,000 units SC Q8 [facility] Last Admin: 12/28/18 04:59 Dose: 5,000 units Dextrose (Dextrose 5% In Water 1000 Ml) 1,000 mls @ 0 mls/hr IV .Q0M PRN; Protocol PRN Reason: Hypoglycemia Protocol Piperacillin Sod/Tazobactam Sod (Zosyn 3.375 Gm Iv Premix) 3.375 gm in 50 mls @ 100 mls/hr IVPB Q8H [facility]; Protocol Last Admin: 12/28/18 04:56 Dose: 100 mls/hr Insulin Aspart (Novolog) 0 unit SC ACHS [facility]; Protocol Last Admin: 12/28/18 08:23 Dose: Not Given Losartan Potassium (Cozaar) 25 mg PO DAILY [facility] Last Admin: 12/27/18 14:02 Dose: Not Given Metoprolol Succinate (Toprol Xl) 12.5 mg PO DAILY [facility] Last Admin: 12/27/18 09:40 Dose: 12.5 mg Nystatin (Nystatin Oral Susp) 5 ml PO QID [facility] Last Admin: 12/27/18 21:34 Dose: 5 ml Rosuvastatin Calcium (Crestor) 10 mg PO HS [facility] Last Admin: 12/27/18 21:34 Dose: 10 mg Sitagliptin Phosphate (Januvia) 100 mg PO DAILY [facility] Last Admin: 12/27/18 09:39 Dose: 100 mg - Labs Labs: 12/28/18 07:25 12/28/18 07:25 PT 16.8 SECONDS (9.7-12.2) H 12/25/18 16:43 INR 1.5 12/25/18 16:43 APTT 43 SECONDS (21-34) H 12/25/18 16:43 - Additional Findings Additional findings: - Head Exam Head Exam: ATRAUMATIC, NORMOCEPHALIC - Eye Exam Eye Exam: EOMI, PERRL, redness and conjuctival injection noted infor portion of L sclera Pupil Exam: NORMAL ACCOMODATION - ENT Exam ENT Exam: Mucous Membranes Dry - Respiratory Exam Respiratory Exam: Rales, Wheezes, NORMAL BREATHING PATTERN - Cardiovascular Exam Cardiovascular Exam: REGULAR RHYTHM, +S1, +S2. absent: Systolic Murmur - GI/Abdominal Exam GI & Abdominal Exam: Normal Bowel Sounds, Soft. absent: Firm, Guarding, Tenderness - Extremities Exam Extremities exam: Negative for: calf tenderness Additional comments: bilateral pitting edema distal to distal knees, +2 - Back Exam Back exam: absent: CVA tenderness (L), CVA tenderness (R) - Neurological Exam Neurological exam: Abnormal Gait, Alert, CN II-XII Intact, Oriented x3, Reflexes Normal - Psychiatric Exam Psychiatric exam: Anxious - Skin Skin Exam: Dry, Intact, Normal Color, Warm Assessment and Plan - Assessment and Plan (Free Text) Assessment: 58yo M PMH CHF s/p cardiac cath, asthma, GASTON, gastritis, CAD s/p CABG and stent, DM2 with neuropathy, and PAD/PVD admitted for CHF exacerbation. Plan: HFpEF exacarbatio, acute on chronic Pleural Effusions Hx of CAD with CABG and stent - Trop neg - ProBNP 6980 (elevated above patient's baseline) - ECHO 12/25: severe diastolic HF, - Dr Yan Cardio consulted- rec: Lasix drip @ 5, strict I&Os - Cardiac Cath 11/29: successful saphenous vein graft to obtuse marginal artery. Required two drug eluting stents. - CXR (12/25): pulm vasc congestion, L pleural effusion. - Aspirin 81mg po daily - Plavix 75mg po daily - Lasix 5mg drip/hr - Toprol 12.5mg PO daily - Cozaar 25mg PO daily - Crestor 10mg Po qHS - Zosyn 3.375gm IVPB 18 (started 12/25) - Cardio consulted: Dr. Yan - TELE, daily weights, I/O - Nephro Dr Brown consulted replete k, 1L fluid restriction Pulmonary Hypertension Asthma, Obstructive Sleep Apnea - BiPAP - Duonebs - Breo Ellipta 1 puff INH daily - Ventolin 2 puff IH rQ6 prn - Pulm consulted: Dr. Akers Diabetes Mellitus with Neuropathy - 6.7 Hgb A1c - Accuchecks ACHS - ISS - hypoglycemia protocol - Januvia 100mg po daily - Neurontin 100mg po bid - Cymbalta 60mg po daily Acute Scleritis - Pred Forte OU drops QID - Cipro Drops BID - Monitor - Dr Kapadia Ophthalmology consulted PPx - DVT: Heparin 5000u SC q8 - GI: Pepcid 40mg po daily - Diet: HHD - PT/OT
[2018-12-28] MEDS: Nystatin 100,000 Units/ml Oral Susp 5 ml UD PO SCH ×4 (09:55→21:23)
[2018-12-28] MEDS: Metoprolol Succinate 12.5 mg XL Tab PO SCH (09:56)
[2018-12-28] MEDS: Potassium Chloride 20 mEq ER Tab PO SCH (10:08)
[2018-12-28] MEDS: Fluticasone-Vilanterol 100/25mcg Diskus INH SCH (10:53)
--- NOTE | 2018-12-28 11:49 | CP.PCM.PN ---
Subjective - Date & Time of Evaluation Date of Evaluation: 12/28/18 Time of Evaluation: 11:48 - Subjective Subjective: pt is seen and examined, follow up consult is dictated #[id number] c/w lasix Objective - Vital Signs/Intake and Output Vital Signs (last 24 hours): Temp Pulse Resp BP Pulse Ox 97.8 F 97 H 18 111/61 100 12/28/18 07:00 12/28/18 09:53 12/28/18 07:00 12/28/18 09:57 12/28/18 07:00 Intake and Output: 12/28/18 12/28/18 06:59 18:59 Intake Total 350 Output Total 700 Balance -350 - Medications Medications: Current Medications Albuterol (Ventolin Hfa 90 Mcg/Actuation (8 G)) 2 puff IH RQ6 PRN PRN Reason: Shortness of Breath Last Admin: 12/26/18 07:50 Dose: 2 puff Aspirin (Ecotrin) 81 mg PO DAILY [facility] Last Admin: 12/28/18 09:56 Dose: 81 mg Ciprofloxacin (Ciloxan 0.3% [facility] Sol) 2 drop OU Q4 [facility] Last Admin: 12/28/18 09:06 Dose: 1 applic Clopidogrel Bisulfate (Plavix) 75 mg PO DAILY [facility] Last Admin: 12/28/18 09:56 Dose: 75 mg Dextrose (Dextrose 50% Inj) 0 ml IV STAT PRN; Protocol PRN Reason: Hypoglycemia Protocol Dextrose (Glutose 15) 0 gm PO ONCE PRN; Protocol PRN Reason: Hypoglycemia Protocol Duloxetine HCl (Cymbalta) 60 mg PO DAILY [facility] Last Admin: 12/28/18 09:56 Dose: 60 mg Famotidine (Pepcid) 40 mg PO DAILY [facility] Last Admin: 12/28/18 09:56 Dose: 40 mg Fluticasone/Vilanterol (Breo Ellipta 100-25 Mcg Inh) 1 puff INH RQD [facility] Last Admin: 12/28/18 10:53 Dose: 1 puff Furosemide (Lasix) 40 mg IVP DAILY [facility] Last Admin: 12/28/18 09:57 Dose: 40 mg Gabapentin (Neurontin) 100 mg PO BID [facility] Last Admin: 12/28/18 09:57 Dose: 100 mg Glucagon (Glucagen Diagnostic Kit) 0 mg IM STAT PRN; Protocol PRN Reason: Hypoglycemia Protocol Heparin Sodium (Porcine) (Heparin) 5,000 units SC Q8 [facility] Last Admin: 12/28/18 04:59 Dose: 5,000 units Dextrose (Dextrose 5% In Water 1000 Ml) 1,000 mls @ 0 mls/hr IV .Q0M PRN; Protocol PRN Reason: Hypoglycemia Protocol Piperacillin Sod/Tazobactam Sod (Zosyn 3.375 Gm Iv Premix) 3.375 gm in 50 mls @ 100 mls/hr IVPB Q8H [facility]; Protocol Last Admin: 12/28/18 04:56 Dose: 100 mls/hr Insulin Aspart (Novolog) 0 unit SC ACHS [facility]; Protocol Last Admin: 12/28/18 08:23 Dose: Not Given Losartan Potassium (Cozaar) 25 mg PO DAILY [facility] Last Admin: 12/27/18 14:02 Dose: Not Given Metoprolol Succinate (Toprol Xl) 12.5 mg PO DAILY [facility] Last Admin: 12/28/18 09:56 Dose: 12.5 mg Nystatin (Nystatin Oral Susp) 5 ml PO QID [facility] Last Admin: 12/28/18 09:55 Dose: 5 ml Potassium Chloride (K-Dur 20 Meq Er Tab) 20 meq PO DAILY [facility] Last Admin: 12/28/18 10:08 Dose: 20 meq Rosuvastatin Calcium (Crestor) 10 mg PO HS [facility] Last Admin: 12/27/18 21:34 Dose: 10 mg Sitagliptin Phosphate (Januvia) 100 mg PO DAILY [facility] Last Admin: 12/28/18 09:56 Dose: 100 mg - Labs Labs: 12/28/18 07:25 12/28/18 07:25 PT 16.8 SECONDS (9.7-12.2) H 12/25/18 16:43 INR 1.5 12/25/18 16:43 APTT 43 SECONDS (21-34) H 12/25/18 16:43
--- NOTE | 2018-12-28 14:39 | CP.PCM.CON ---
<Wilber Faria - Last Filed: 12/28/18 19:53> History of Present Illness - History of Present Illness History of Present Illness: ICU Consult Note for Dr. Peck This is a 58 y o male PMhx CAD s/p CABG in 2003, stent in 2010, DM2, PVD, HLD, angina, HTN, gastritis, asthma, GASTON, who presented to the ED with c/o shortness of breath, chest pain, and LE edema. Pt currently admitted for HFpEF e xacerbation, [id number]. Reason for ICU consult was for pt's clinical management necessitating Lasix drip. On exam, pt denies any acute complaints, denies chest pain, worsening shortness of breath, n/v/d/c, abd pain, urinary complaints, or other symptoms. PMH: as noted above PSH: CABG (2003), Coronary Stent (2010) Meds: reviewed as per [facility] Allx: NKDA FHx: Heart disease (several members) SHx: denies smoking, alcohol or drug use. Retired. Cardio: Yuriy Pulm: [place] GI: [place] Review of Systems - Review of Systems All systems: reviewed and no additional remarkable complaints except - Cardiovascular Cardiovascular: absent: Chest Pain - Respiratory Respiratory: Dyspnea. absent: Wheezing - Gastrointestinal Gastrointestinal: absent: Abdominal Pain, Constipation, Diarrhea, Nausea, Vomiting - Genitourinary Genitourinary: absent: Difficulty Urinating, Dysuria Past Patient History - Infectious Disease Hx of Infectious Diseases: None - Past Medical History & Family History Past Medical History?: Yes - Past Social History Smoking Status: Never Smoked - CARDIAC Hx Hypercholesterolemia: Yes Hx Hypertension: Yes - PULMONARY Hx Pneumonia: Yes - NEUROLOGICAL Hx Neurological Disorder: No - HEENT Hx HEENT Problems: No - RENAL Hx Chronic Kidney Disease: No - ENDOCRINE/METABOLIC Hx Endocrine Disorders: Yes Hx Diabetes Mellitus Type 2: Yes - HEMATOLOGICAL/ONCOLOGICAL Hx Anemia: Yes - INTEGUMENTARY Hx Dermatological Problems: No - MUSCULOSKELETAL/RHEUMATOLOGICAL Hx Musculoskeletal Disorders: No Hx Falls: No - GASTROINTESTINAL Hx Gastritis: Yes - GENITOURINARY/GYNECOLOGICAL Hx Genitourinary Disorders: No - PSYCHIATRIC Hx Depression: Yes Hx Substance Use: No - SURGICAL HISTORY Hx Coronary Artery Bypass Graft: Yes (2003) Hx Coronary Stent: Yes (2010) - ANESTHESIA Hx Anesthesia: Yes Hx Anesthesia Reactions: No Hx Malignant Hyperthermia: No Meds Allergies/Adverse Reactions: Allergies Allergy/AdvReac Type Severity Reaction Status Date / Time No Known Allergies Allergy Verified 12/25/18 14:38 - Medications Medications: Current Medications Albuterol (Ventolin Hfa 90 Mcg/Actuation (8 G)) 2 puff IH RQ6 PRN PRN Reason: Shortness of Breath Last Admin: 12/26/18 07:50 Dose: 2 puff Aspirin (Ecotrin) 81 mg PO DAILY [facility] Last Admin: 12/28/18 09:56 Dose: 81 mg Ciprofloxacin (Ciloxan 0.3% Ophth Soln) 2 drop OU Q4 [facility] Last Admin: 12/28/18 13:04 Dose: 2 drop Clopidogrel Bisulfate (Plavix) 75 mg PO DAILY [facility] Last Admin: 12/28/18 09:56 Dose: 75 mg Dextrose (Dextrose 50% Inj) 0 ml IV STAT PRN; Protocol PRN Reason: Hypoglycemia Protocol Dextrose (Glutose 15) 0 gm PO ONCE PRN; Protocol PRN Reason: Hypoglycemia Protocol Duloxetine HCl (Cymbalta) 60 mg PO DAILY [facility] Last Admin: 12/28/18 09:56 Dose: 60 mg Famotidine (Pepcid) 40 mg PO DAILY [facility] Last Admin: 12/28/18 09:56 Dose: 40 mg Fluticasone/Vilanterol (Breo Ellipta 100-25 Mcg Inh) 1 puff INH RQD [facility] Last Admin: 12/28/18 10:53 Dose: 1 puff Gabapentin (Neurontin) 100 mg PO BID [facility] Last Admin: 12/28/18 09:57 Dose: 100 mg Glucagon (Glucagen Diagnostic Kit) 0 mg IM STAT PRN; Protocol PRN Reason: Hypoglycemia Protocol Heparin Sodium (Porcine) (Heparin) 5,000 units SC Q8 [facility] Last Admin: 12/28/18 13:05 Dose: 5,000 units Dextrose (Dextrose 5% In Water 1000 Ml) 1,000 mls @ 0 mls/hr IV .Q0M PRN; Protocol PRN Reason: Hypoglycemia Protocol Piperacillin Sod/Tazobactam Sod (Zosyn 3.375 Gm Iv Premix) 3.375 gm in 50 mls @ 100 mls/hr IVPB Q8H [facility]; Protocol Last Admin: 12/28/18 13:05 Dose: 100 mls/hr Furosemide 100 mg/ Sodium (Chloride) 100 mls @ 5 mls/hr IVP .Q20H [facility]; Protocol Insulin Aspart (Novolog) 0 unit SC ACHS [facility]; Protocol Last Admin: 12/28/18 13:04 Dose: 3 unit Losartan Potassium (Cozaar) 25 mg PO DAILY [facility] Last Admin: 12/27/18 14:02 Dose: Not Given Metoprolol Succinate (Toprol Xl) 12.5 mg PO DAILY [facility] Last Admin: 12/28/18 09:56 Dose: 12.5 mg Nystatin (Nystatin Oral Susp) 5 ml PO QID [facility] Last Admin: 12/28/18 13:05 Dose: 5 ml Potassium Chloride (K-Dur 20 Meq Er Tab) 20 meq PO DAILY [facility] Last Admin: 12/28/18 10:08 Dose: 20 meq Prednisolone Acetate (Pred Forte 1% Opht Susp) 0 ml OU QID [facility] Rosuvastatin Calcium (Crestor) 10 mg PO HS [facility] Last Admin: 12/27/18 21:34 Dose: 10 mg Sitagliptin Phosphate (Januvia) 100 mg PO DAILY [facility] Last Admin: 12/28/18 09:56 Dose: 100 mg Physical Exam - Constitutional Appears: Non-toxic, No Acute Distress - Head Exam Head Exam: ATRAUMATIC, NORMOCEPHALIC - Eye Exam Eye Exam: EOMI, PERRL - ENT Exam ENT Exam: Mucous Membranes Moist - Neck Exam Neck exam: Positive for: Full Rom. Negative for: Lymphadenopathy - Respiratory Exam Respiratory Exam: Rales, NORMAL BREATHING PATTERN - Cardiovascular Exam Cardiovascular Exam: REGULAR RHYTHM, +S1, +S2. absent: Gallop, Rubs, Systolic Murmur - GI/Abdominal Exam GI & Abdominal Exam: Normal Bowel Sounds, Soft. absent: Distended, Organomegaly, Tenderness - Extremities Exam Extremities exam: Positive for: normal capillary refill, normal inspection, pedal pulses present - Neurological Exam Neurological exam: Alert, CN II-XII Intact, Oriented x3 - Skin Skin Exam: Dry, Intact, Warm Results - Vital Signs Recent Vital Signs: Last Vital Signs Temp 97.8 F 12/28/18 07:00 Pulse 97 H 12/28/18 09:53 Resp 18 12/28/18 07:00 BP 111/61 12/28/18 09:57 Pulse Ox 100 12/28/18 07:00 - Labs Result Diagrams: 12/28/18 07:25 12/28/18 07:25 Labs: Laboratory Results - last 24 hr 12/27/18 12/27/18 12/28/18 16:35 21:20 06:36 WBC RBC Hgb Hct MCV MCH MCHC RDW Plt Count MPV Neut % (Auto) Lymph % (Auto) [place] % (Auto) Eos % (Auto) Baso % (Auto) Neut # (Auto) Lymph # (Auto) [place] # (Auto) Eos # (Auto) Baso # (Auto) Sodium Potassium Chloride Carbon Dioxide Anion Gap BUN Creatinine Est GFR ( Amer) Est GFR (Non-Af Amer) POC Glucose (mg/dL) 170 H 185 H 103 Random Glucose Calcium Phosphorus Magnesium Total Bilirubin AST ALT Alkaline Phosphatase Total Protein Albumin Globulin Albumin/Globulin Ratio 12/28/18 12/28/18 12/28/18 07:25 07:25 12:25 WBC 7.8 RBC 4.40 Hgb 11.0 L Hct 34.6 L MCV 78.7 L MCH 25.1 L MCHC 31.8 L RDW 20.0 H Plt Count 150 MPV 8.4 Neut % (Auto) 60.9 Lymph % (Auto) 21.4 [place] % (Auto) 14.4 H Eos % (Auto) 2.7 Baso % (Auto) 0.6 Neut # (Auto) 4.7 Lymph # (Auto) 1.7 [place] # (Auto) 1.1 H Eos # (Auto) 0.2 Baso # (Auto) 0.0 Sodium 138 Potassium 3.3 L Chloride 103 Carbon Dioxide 31 H Anion Gap 8 L BUN 30 H Creatinine 1.5 Est GFR ( Amer) 58 Est GFR (Non-Af Amer) 48 POC Glucose (mg/dL) 210 H Random Glucose 84 Calcium 9.2 Phosphorus 2.5 Magnesium 2.7 H Total Bilirubin 1.1 AST 63 H ALT 24 Alkaline Phosphatase 90 Total Protein 6.5 Albumin 3.2 L Globulin 3.3 Albumin/Globulin Ratio 1.0 Assessment & Plan - Assessment and Plan (Free Text) Assessment: This is a 58 y o male PMhx CAD s/p CABG in 2003, stent in 2010, DM2, PVD, HLD, angina, HTN, gastritis, asthma, GASTON, who presented to the ED with c/o shortness of breath, chest pain, and LE edema. Pt currently admitted for HFpEF exacerbation, [id number]. Reason for ICU consult was for pt's clinical management necessitating Lasix drip. Pt to be transferred to ICU for monitoring while on Lasix drip. Plan: Neuro: -AAOx3, no gross deficits on exam -Cont to monitor Cardio: -HFpEF exacerbation, [id number] -Hx CAD s/p CABG and stent -Trop neg -Pro-BNP elevated on admission -Echo done today, f/u results -Cardiology consulted (Dr. Yan), recs appreciated, rec Lasix drip at rate of 5; strict I's/O's, daily weights -CXR on admission demonstrated pulm vasc congestion, L pleural effusion -ASA, Plavix -Lasix drip -Toprol, Cozaar -Crestor -Zosyn (started 12/25) -Nephro (Dr. Nixon) consulted: rec replete K, 1 L fluid restriction Pulm: -Pulm HTN, asthma, GASTON -BiPap -Duonebs as scheduled -Breo Ellipta, Ventolin -CXR as noted above -Pulm consulted, Dr. 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 Kapadia), recs appreciated Pred Forte OU drops qid Cipro drops bid Renal: -BUN/Cr 30/1.5, cont to trend -Strict I's/O's -Nephro consulted -Replete with K daily while on Lasix drip, cont to trend Heme/ID: -H/H 34.6, no leukocytosis -Currently on Zosyn PPX: -Heparin, Pepcid -HHD -PT/OT Pt seen, examined with, and plan discussed with Dr. Peck, attending physician. Wilber Faria DO PGY-1, [employer] Pager #[phone] <Daniele Peck - Last Filed: 12/29/18 16:49> Meds - Medications Medications: Current Medications Albuterol (Ventolin Hfa 90 Mcg/Actuation (8 G)) 2 puff IH RQ6 PRN PRN Reason: Shortness of Breath Last Admin: 12/29/18 08:39 Dose: 2 puff Aspirin (Ecotrin) 81 mg PO DAILY [facility] Last Admin: 12/29/18 09:12 Dose: 81 mg Ciprofloxacin (Ciloxan 0.3% Ophth Soln) 2 drop OU Q4 [facility] Last Admin: 12/29/18 16:16 Dose: 2 drop Clopidogrel Bisulfate (Plavix) 75 mg PO DAILY [facility] Last Admin: 12/29/18 09:13 Dose: 75 mg Dextrose (Dextrose 50% Inj) 0 ml IV STAT PRN; Protocol PRN Reason: Hypoglycemia Protocol Dextrose (Glutose 15) 0 gm PO ONCE PRN; Protocol PRN Reason: Hypoglycemia Protocol Duloxetine HCl (Cymbalta) 60 mg PO DAILY [facility] Last Admin: 12/29/18 09:12 Dose: 60 mg Famotidine (Pepcid) 40 mg PO DAILY [facility] Last Admin: 12/29/18 09:13 Dose: 40 mg Fluticasone/Vilanterol (Breo Ellipta 100-25 Mcg Inh) 1 puff INH RQD [facility] Last Admin: 12/29/18 08:38 Dose: 1 puff Furosemide (Lasix) 40 mg IVP BID [facility] Gabapentin (Neurontin) 100 mg PO BID [facility] Last Admin: 12/29/18 09:12 Dose: 100 mg Glucagon (Glucagen Diagnostic Kit) 0 mg IM STAT PRN; Protocol PRN Reason: Hypoglycemia Protocol Piperacillin Sod/Tazobactam Sod (Zosyn 3.375 Gm Iv Premix) 3.375 gm in 50 mls @ 100 mls/hr IVPB Q8H [facility]; Protocol Last Admin: 12/29/18 11:34 Dose: 100 mls/hr Insulin Aspart (Novolog) 0 unit SC ACHS [facility]; Protocol Last Admin: 12/29/18 16:41 Dose: 3 unit Losartan Potassium (Cozaar) 25 mg PO DAILY [facility] Last Admin: 12/27/18 14:02 Dose: Not Given Metoprolol Succinate (Toprol Xl) 12.5 mg PO DAILY [facility] Last Admin: 12/29/18 09:13 Dose: 12.5 mg Nystatin (Nystatin Oral Susp) 5 ml PO QID [facility] Last Admin: 12/29/18 13:47 Dose: 5 ml Potassium Chloride (K-Dur 20 Meq Er Tab) 20 meq PO DAILY [facility] Last Admin: 12/29/18 09:12 Dose: 20 meq Prednisolone Acetate (Pred Forte 1% Opht Susp) 0 ml OU QID [facility] Last Admin: 12/29/18 13:48 Dose: 1 drop Rosuvastatin Calcium (Crestor) 10 mg PO HS [facility] Last Admin: 12/28/18 21:23 Dose: 10 mg Sitagliptin Phosphate (Januvia) 100 mg PO DAILY [facility] Last Admin: 12/29/18 09:12 Dose: 100 mg Results - Vital Signs Recent Vital Signs: Last Vital Signs Temp 98.2 F 12/29/18 14:00 Pulse 87 12/29/18 15:00 Resp 20 12/29/18 15:00 BP 105/69 12/29/18 14:58 Pulse Ox 98 12/29/18 15:00 - Labs Result Diagrams: 12/29/18 06:25 12/29/18 06:20 Labs: Laboratory Results - last 24 hr 12/29/18 12/29/18 06:20 06:25 WBC 7.6 RBC 4.44 Hgb 10.9 L Hct 34.7 L MCV 78.1 L MCH 24.6 L MCHC 31.5 L RDW 19.8 H Plt Count 166 MPV 8.7 Neut % (Auto) 58.8 Lymph % (Auto) 24.9 [place] % (Auto) 12.9 H Eos % (Auto) 2.9 Baso % (Auto) 0.5 Neut # (Auto) 4.5 Lymph # (Auto) 1.9 [place] # (Auto) 1.0 H Eos # (Auto) 0.2 Baso # (Auto) 0.0 Sodium 137 Potassium 3.0 L Chloride 101 Carbon Dioxide 30 Anion Gap 9 L BUN 22 H Creatinine 1.4 Est GFR ( Amer) > 60 Est GFR (Non-Af Amer) 52 Random Glucose 84 Calcium 8.9 Phosphorus 2.6 Magnesium 2.6 H Total Bilirubin 0.9 AST 48 ALT 20 L Alkaline Phosphatase 92 Total Protein 6.8 Albumin 3.4 L Globulin 3.4 Albumin/Globulin Ratio 1.0 Attending/Attestation - Attestation I have personally seen and examined this patient.: Yes I have fully participated in the care of the patient.: Yes I have reviewed all pertinent clinical information: Yes Notes (Text): 12/28/18 16:48 I have seen and examined the patient. Medical records, lab studies, and imaging were reviewed by me and a management plan was formulated on multidisciplinary rounds with resident Dr. Faria. I agree with their documented assessment and plan. Patient getting diuresis with lasix drip for edema from decompensated heart failure. Will monitor. Critical Care Time 35 minutes. Multi-disciplinary rounds were performed with house staff, nursing, speech therapy, respiratory therapy, pharmacy and nutrition with integrated input from the primary team/attending and other consulting services. The documented time is cumulative and includes review of patient data/exams/labs/chart review and examination of the patient on rounds and throughout the day; time is exclusive of any procedures or teaching time.
[2018-12-28] MEDS: PrednisoLONE 1% Opht Susp(5 ml) OU SCH ×3 (14:42→21:46)
--- NOTE | 2018-12-28 14:51 | RAD ---
Date of service: 12/28/2018 HISTORY: MAXIMUS, COMPARISON: 12/25/2018. TECHNIQUE: Chest PA and lateral FINDINGS: LUNGS: No active pulmonary disease. PLEURA: No significant pleural effusion identified. No pneumothorax apparent. CARDIOVASCULAR: No aortic atherosclerotic calcification present. No radiographic findings to suggest acute or significant cardiovascular disease. Incidental Finding(s): Postoperative changes related to sternotomy. No pulmonary vascular congestion. OSSEOUS STRUCTURES: No significant abnormalities. VISUALIZED UPPER ABDOMEN: Normal. OTHER FINDINGS: None. IMPRESSION: No active disease. No significant interval change compared to the prior examination(s).
[2018-12-28] MEDS ORDERED: Furosemide 100 MG in Sodium Chloride 0.9% 90 ML IVP SCH (15:00)
[2018-12-28] MEDS: Furosemide 100 MG in Sodium Chloride 0.9% 90 ML IV SCH (16:42)
--- NOTE | 2018-12-28 18:16 | CP.PCM.PN ---
Subjective - Date & Time of Evaluation Date of Evaluation: 12/28/18 Time of Evaluation: 18:04 - Subjective Subjective: Patient seen and examined No events overnight Objective - Vital Signs/Intake and Output Vital Signs (last 24 hours): Temp Pulse Resp BP Pulse Ox 97.5 F L 77 20 105/49 L 97 12/28/18 15:00 12/28/18 15:00 12/28/18 15:00 12/28/18 16:42 12/28/18 15:00 Intake and Output: 12/28/18 12/28/18 06:59 18:59 Intake Total 350 548 Output Total 700 1180 Balance -350 -702 - Medications Medications: Current Medications Albuterol (Ventolin Hfa 90 Mcg/Actuation (8 G)) 2 puff IH RQ6 PRN PRN Reason: Shortness of Breath Last Admin: 12/26/18 07:50 Dose: 2 puff Aspirin (Ecotrin) 81 mg PO DAILY [facility] Last Admin: 12/28/18 09:56 Dose: 81 mg Ciprofloxacin (Ciloxan 0.3% [facility]) 2 drop OU Q4 [facility] Last Admin: 12/28/18 16:14 Dose: 2 drop Clopidogrel Bisulfate (Plavix) 75 mg PO DAILY [facility] Last Admin: 12/28/18 09:56 Dose: 75 mg Dextrose (Dextrose 50% Inj) 0 ml IV STAT PRN; Protocol PRN Reason: Hypoglycemia Protocol Dextrose (Glutose 15) 0 gm PO ONCE PRN; Protocol PRN Reason: Hypoglycemia Protocol Duloxetine HCl (Cymbalta) 60 mg PO DAILY [facility] Last Admin: 12/28/18 09:56 Dose: 60 mg Famotidine (Pepcid) 40 mg PO DAILY [facility] Last Admin: 12/28/18 09:56 Dose: 40 mg Fluticasone/Vilanterol (Breo Ellipta 100-25 Mcg Inh) 1 puff INH RQD [facility] Last Admin: 12/28/18 10:53 Dose: 1 puff Gabapentin (Neurontin) 100 mg PO BID [facility] Last Admin: 12/28/18 17:27 Dose: 100 mg Glucagon (Glucagen Diagnostic Kit) 0 mg IM STAT PRN; Protocol PRN Reason: Hypoglycemia Protocol Heparin Sodium (Porcine) (Heparin) 5,000 units SC Q8 [facility] Last Admin: 12/28/18 13:05 Dose: 5,000 units Dextrose (Dextrose 5% In Water 1000 Ml) 1,000 mls @ 0 mls/hr IV .Q0M PRN; Protocol PRN Reason: Hypoglycemia Protocol Piperacillin Sod/Tazobactam Sod (Zosyn 3.375 Gm Iv Premix) 3.375 gm in 50 mls @ 100 mls/hr IVPB Q8H [facility]; Protocol Last Admin: 12/28/18 13:05 Dose: 100 mls/hr Furosemide 100 mg/ Sodium (Chloride) 100 mls @ 5 mls/hr IV .Q20H [facility]; Protocol Last Admin: 12/28/18 16:42 Dose: 5 mls/hr Insulin Aspart (Novolog) 0 unit SC ACHS [facility]; Protocol Last Admin: 12/28/18 16:51 Dose: 2 unit Losartan Potassium (Cozaar) 25 mg PO DAILY [facility] Last Admin: 12/27/18 14:02 Dose: Not Given Metoprolol Succinate (Toprol Xl) 12.5 mg PO DAILY [facility] Last Admin: 12/28/18 09:56 Dose: 12.5 mg Nystatin (Nystatin Oral Susp) 5 ml PO QID [facility] Last Admin: 12/28/18 17:27 Dose: 5 ml Potassium Chloride (K-Dur 20 Meq Er Tab) 20 meq PO DAILY [facility] Last Admin: 12/28/18 10:08 Dose: 20 meq Prednisolone Acetate (Pred Forte 1% Opht Susp) 0 ml OU QID [facility] Last Admin: 12/28/18 17:27 Dose: 2 drop Rosuvastatin Calcium (Crestor) 10 mg PO HS [facility] Last Admin: 12/27/18 21:34 Dose: 10 mg Sitagliptin Phosphate (Januvia) 100 mg PO DAILY [facility] Last Admin: 12/28/18 09:56 Dose: 100 mg - Labs Labs: 12/28/18 07:25 12/28/18 07:25 PT 16.8 SECONDS (9.7-12.2) H 12/25/18 16:43 INR 1.5 12/25/18 16:43 APTT 43 SECONDS (21-34) H 12/25/18 16:43 - Head Exam Head Exam: NORMAL INSPECTION - Eye Exam Eye Exam: Normal appearance - ENT Exam ENT Exam: Mucous Membranes Moist - Respiratory Exam Respiratory Exam: Clear to Ausculation Bilateral - Cardiovascular Exam Cardiovascular Exam: REGULAR RHYTHM, +S1, +S2 - GI/Abdominal Exam GI & Abdominal Exam: Soft, Normal Bowel Sounds - Extremities Exam Extremities Exam: Pedal Edema - Neurological Exam Neurological Exam: Alert, Oriented x3 - Psychiatric Exam Psychiatric exam: Normal Affect, Normal Mood Assessment and Plan (1) Conjunctivitis Status: Acute (2) Chronic congestive heart failure Status: Acute (3) Asthma Status: Acute (4) Dyspnea Status: Acute (5) Oral candidiasis Status: Acute - Assessment and Plan (Free Text) Plan: Breo Ellipta Oxygen supplementation BiPAP at night Oral nystatin Cipro ophthalmic Lasix DVT/GI prophylaxis
[2018-12-29] MEDS: Ciprofloxacin 0.3% OPTH SOLN OU SCH ×5 (03:57→20:55)
--- NOTE | 2018-12-29 05:06 | PN ---
DATE: 12/28/2018 FOLLOWUP RENAL CONSULTATION LOCATION: The patient is located in room 563, bed 1. REASON FOR FOLLOWUP: MATTHEW and CKD with CHF and severe aortic regurgitation and bilateral leg swelling. SUBJECTIVE: Mr. Phelps is a 58-year-old male with a history of longstanding hypertension, diabetes, peripheral vascular disease, hyperlipidemia, coronary artery disease, status post CABG in 2003, asthma, obstructive sleep apnea who was admitted initially to medical floor with shortness of breath, bilateral leg swelling and dyspnea on exertion. The patient was on IV Lasix initially twice a day and subsequently decreased to once a day due to decreased blood pressure. The patient is not in acute distress, resting comfortably at the edge of the bed. No chest pain. No palpitation. The patient still complains of bilateral leg swelling. PHYSICAL EXAMINATION: VITAL SIGNS: As follows: Blood pressure this morning 111/61, pulse 97, respirations 18, temperature 97.8, saturation 100%. Height 5 feet 5 inches, and weight is 165 pounds. GENERAL: Mr. Phelps is a 58-year-old elderly male, moderately built, moderately nourished, not in acute distress. HEENT: Pupils normal and reactive to light and accommodation. Conjunctivae pink. Sclerae anicteric. Tongue is moist. Trachea is midline. LUNGS: Symmetric on both sides. Bilateral breath sounds present. Occasional basal crackles present. CARDIOVASCULAR SYSTEM: [place] at the fifth intercostal space, midclavicular line. S1 and S2 audible. No murmur or gallop. ABDOMEN: Protuberant, soft, tympanitic. No guarding. No rigidity. No hepatosplenomegaly. CENTRAL NERVOUS SYSTEM: The patient is alert, awake, oriented x3. Nonfocal neuro examination. Cranial nerves II through XII grossly intact. Sensory and motor system is within normal limits. EXTREMITIES: No cyanosis, no clubbing. The patient has 2+ edema in both lower extremities. CURRENT MEDICATIONS: Include as follows: Breo Ellipta, ciprofloxacin eye drops, losartan on hold, Crestor 10 mg at bedtime, Cymbalta 60 mg p.o. daily, Lasix 40 mg IV daily, Januvia 100 mg p.o. daily, K-Dur 20 mEq p.o. daily, gabapentin 100 mg p.o. b.i.d., Pepcid 40 mg p.o. daily, Plavix 75 mg daily, Toprol-XL 12.5 mg p.o. daily, Ventolin inhaler two puffs every 6 hours p.r.n., and Zosyn 3.375 g IV every 8 hours. LABORATORY DATA: Include as follows: As of 12/28/2018, WBC 7.8, hemoglobin 11, hematocrit is 34.6, MCV is 78.7, and platelets 150. Sodium 138, potassium 3.3, chloride 103, CO2 of 31, BUN 30, creatinine 1.5, glucose 103, calcium 9.2, phosphorus 2.5, and magnesium 2.7. Total bili 1.1, AST 63, ALT 24, alkaline phosphatase 90, total protein 6.4, albumin is 3.2. ASSESSMENT AND PLAN: In summary, Mr. Phelps is a 58-year-old elderly obese male with a history of hypertension, diabetes, coronary artery disease, status post coronary artery bypass grafting, obstructive sleep apnea with severe aortic regurgitation, bilateral leg swelling, and pulmonary vascular congestion. 1. Acute renal failure on chronic kidney disease secondary to diuresis. 2. Congestive heart failure. 3. Edema secondary to congestive heart failure and fluid overload. 4. Severe aortic regurgitation. 5. Diabetes. Continue gentle diuresis as tolerated. Continue monitor electrolytes and supplement potassium as needed for hypokalemia. Thank you for allowing me to participate in your patient's care. Annmarie Nixon MD
[2018-12-29] MEDS: Piperacill/Tazo 3.375gm in Dex 3.375 GM/50 ML BAG IVPB SCH ×2 (05:11→11:34)
--- NOTE | 2018-12-29 05:22 | CP.PCM.PN ---
Subjective - Date & Time of Evaluation Date of Evaluation: 12/28/18 Time of Evaluation: 17:50 - Subjective Subjective: ICU Note This is a 58 y o male PMhx CAD s/p CABG in 2003, stent in 2010, DM2, PVD, HLD, angina, HTN, gastritis, asthma, GASTON, who presented to the ED with c/o shortness of breath, chest pain, and LE edema. Pt currently admitted for HFpEF exacerbation, [id number]. Reason for ICU consult was for pt's clinical management necessitating Lasix drip. On exam, pt denies any acute complaints, denies chest pain, worsening shortness of breath, n/v/d/c, abd pain, urinary complaints, or other symptoms. PMH: as noted above PSH: CABG (2003), Coronary Stent (2010) Meds: reviewed as per MAR Allx: NKDA FHx: Heart disease (several members) SHx: denies smoking, alcohol or drug use. Retired. Review of Systems - Review of Systems All systems: reviewed and no additional remarkable complaints except - Cardiovascular Cardiovascular: absent: Chest Pain - Respiratory Respiratory: Dyspnea. absent: Wheezing - Gastrointestinal Gastrointestinal: absent: Abdominal Pain, Constipation, Diarrhea, Nausea, Vomiting - Genitourinary Genitourinary: absent: Difficulty Urinating, Dysuria Past Patient History - Infectious Disease Hx of Infectious Diseases: None - Past Medical History & Family History Past Medical History?: Yes - Past Social History Smoking Status: Never Smoked - CARDIAC Hx Hypercholesterolemia: Yes Hx Hypertension: Yes - PULMONARY Hx Pneumonia: Yes - NEUROLOGICAL Hx Neurological Disorder: No - HEENT Hx HEENT Problems: No - RENAL Hx Chronic Kidney Disease: No - ENDOCRINE/METABOLIC Hx Endocrine Disorders: Yes Hx Diabetes Mellitus Type 2: Yes - HEMATOLOGICAL/ONCOLOGICAL Hx Anemia: Yes - INTEGUMENTARY Hx Dermatological Problems: No - MUSCULOSKELETAL/RHEUMATOLOGICAL Hx Musculoskeletal Disorders: No Hx Falls: No - GASTROINTESTINAL Hx Gastritis: Yes - GENITOURINARY/GYNECOLOGICAL Hx Genitourinary Disorders: No - PSYCHIATRIC Hx Depression: Yes Hx Substance Use: No - SURGICAL HISTORY Hx Coronary Artery Bypass Graft: Yes (2003) Hx Coronary Stent: Yes (2010) - ANESTHESIA Hx Anesthesia: Yes Hx Anesthesia Reactions: No Hx Malignant Hyperthermia: No Meds Allergies/Adverse Reactions: Allergies Allergy/AdvReac Type Severity Reaction Status Date / Time No Known Allergies Allergy Verified 12/25/18 14:38 - Medications Medications: Current Medications Albuterol (Ventolin Hfa 90 Mcg/Actuation (8 G)) 2 puff IH RQ6 PRN PRN Reason: Shortness of Breath Last Admin: 12/26/18 07:50 Dose: 2 puff Aspirin (Ecotrin) 81 mg PO DAILY [facility] Last Admin: 12/28/18 09:56 Dose: 81 mg Ciprofloxacin (Ciloxan 0.3% Ophth Soln) 2 drop OU Q4 [facility] Last Admin: 12/28/18 13:04 Dose: 2 drop Clopidogrel Bisulfate (Plavix) 75 mg PO DAILY [facility] Last Admin: 12/28/18 09:56 Dose: 75 mg Dextrose (Dextrose 50% Inj) 0 ml IV STAT PRN; Protocol PRN Reason: Hypoglycemia Protocol Dextrose (Glutose 15) 0 gm PO ONCE PRN; Protocol PRN Reason: Hypoglycemia Protocol Duloxetine HCl (Cymbalta) 60 mg PO DAILY [facility] Last Admin: 12/28/18 09:56 Dose: 60 mg Famotidine (Pepcid) 40 mg PO DAILY [facility] Last Admin: 12/28/18 09:56 Dose: 40 mg Fluticasone/Vilanterol (Breo Ellipta 100-25 Mcg Inh) 1 puff INH RQD [facility] Last Admin: 12/28/18 10:53 Dose: 1 puff Gabapentin (Neurontin) 100 mg PO BID [facility] Last Admin: 12/28/18 09:57 Dose: 100 mg Glucagon (Glucagen Diagnostic Kit) 0 mg IM STAT PRN; Protocol PRN Reason: Hypoglycemia Protocol Heparin Sodium (Porcine) (Heparin) 5,000 units SC Q8 [facility] Last Admin: 12/28/18 13:05 Dose: 5,000 units Dextrose (Dextrose 5% In Water 1000 Ml) 1,000 mls @ 0 mls/hr IV .Q0M PRN; Protocol PRN Reason: Hypoglycemia Protocol Piperacillin Sod/Tazobactam Sod (Zosyn 3.375 Gm Iv Premix) 3.375 gm in 50 mls @ 100 mls/hr IVPB Q8H [facility]; Protocol Last Admin: 12/28/18 13:05 Dose: 100 mls/hr Furosemide 100 mg/ Sodium (Chloride) 100 mls @ 5 mls/hr IVP .Q20H [facility]; Protocol Insulin Aspart (Novolog) 0 unit SC ACHS [facility]; Protocol Last Admin: 12/28/18 13:04 Dose: 3 unit Losartan Potassium (Cozaar) 25 mg PO DAILY [facility] Last Admin: 12/27/18 14:02 Dose: Not Given Metoprolol Succinate (Toprol Xl) 12.5 mg PO DAILY [facility] Last Admin: 12/28/18 09:56 Dose: 12.5 mg Nystatin (Nystatin Oral Susp) 5 ml PO QID [facility] Last Admin: 12/28/18 13:05 Dose: 5 ml Potassium Chloride (K-Dur 20 Meq Er Tab) 20 meq PO DAILY [facility] Last Admin: 12/28/18 10:08 Dose: 20 meq Prednisolone Acetate (Pred Forte 1% Opht Susp) 0 ml OU QID [facility] Rosuvastatin Calcium (Crestor) 10 mg PO HS [facility] Last Admin: 12/27/18 21:34 Dose: 10 mg Sitagliptin Phosphate (Januvia) 100 mg PO DAILY [facility] Last Admin: 12/28/18 09:56 Dose: 100 mg Physical Exam - Constitutional Appears: Non-toxic, No Acute Distress - Head Exam Head Exam: ATRAUMATIC, NORMOCEPHALIC - Eye Exam Eye Exam: EOMI, PERRL - ENT Exam ENT Exam: Mucous Membranes Moist - Neck Exam Neck exam: Positive for: Full Rom. Negative for: Lymphadenopathy - Respiratory Exam Respiratory Exam: Rales, NORMAL BREATHING PATTERN - Cardiovascular Exam Cardiovascular Exam: REGULAR RHYTHM, +S1, +S2. absent: Gallop, Rubs, Systolic Murmur - GI/Abdominal Exam GI & Abdominal Exam: Normal Bowel Sounds, Soft. absent: Distended, Organomegaly, Tenderness - Extremities Exam Extremities exam: Positive for: normal capillary refill, normal inspection, pedal pulses present - Neurological Exam Neurological exam: Alert, CN II-XII Intact, Oriented x3 - Skin Skin Exam: Dry, Intact, Warm Objective - Vital Signs/Intake and Output Vital Signs (last 24 hours): Temp Pulse Resp BP Pulse Ox 97.5 F L 78 18 119/63 97 12/28/18 15:00 12/29/18 04:00 12/29/18 04:00 12/29/18 03:58 12/29/18 04:00 Intake and Output: 12/28/18 12/29/18 18:59 06:59 Intake Total 1403 100 Output Total 1530 1300 Balance -127 -1200 - Medications Medications: Current Medications Albuterol (Ventolin Hfa 90 Mcg/Actuation (8 G)) 2 puff IH RQ6 PRN PRN Reason: Shortness of Breath Last Admin: 12/26/18 07:50 Dose: 2 puff Aspirin (Ecotrin) 81 mg PO DAILY [facility] Last Admin: 12/28/18 09:56 Dose: 81 mg Ciprofloxacin (Ciloxan 0.3% Ophth Soln) 2 drop OU Q4 [facility] Last Admin: 12/29/18 03:57 Dose: Not Given Clopidogrel Bisulfate (Plavix) 75 mg PO DAILY [facility] Last Admin: 12/28/18 09:56 Dose: 75 mg Dextrose (Dextrose 50% Inj) 0 ml IV STAT PRN; Protocol PRN Reason: Hypoglycemia Protocol Dextrose (Glutose 15) 0 gm PO ONCE PRN; Protocol PRN Reason: Hypoglycemia Protocol Duloxetine HCl (Cymbalta) 60 mg PO DAILY [facility] Last Admin: 12/28/18 09:56 Dose: 60 mg Famotidine (Pepcid) 40 mg PO DAILY [facility] Last Admin: 12/28/18 09:56 Dose: 40 mg Fluticasone/Vilanterol (Breo Ellipta 100-25 Mcg Inh) 1 puff INH RQD [facility] Last Admin: 12/28/18 10:53 Dose: 1 puff Gabapentin (Neurontin) 100 mg PO BID [facility] Last Admin: 12/28/18 17:27 Dose: 100 mg Glucagon (Glucagen Diagnostic Kit) 0 mg IM STAT PRN; Protocol PRN Reason: Hypoglycemia Protocol Piperacillin Sod/Tazobactam Sod (Zosyn 3.375 Gm Iv Premix) 3.375 gm in 50 mls @ 100 mls/hr IVPB Q8H [facility]; Protocol Last Admin: 12/29/18 05:11 Dose: 100 mls/hr Furosemide 100 mg/ Sodium (Chloride) 100 mls @ 5 mls/hr IV .Q20H [facility]; Protocol Last Admin: 12/28/18 16:42 Dose: 5 mls/hr Insulin Aspart (Novolog) 0 unit SC ACHS [facility]; Protocol Last Admin: 12/28/18 21:11 Dose: Not Given Losartan Potassium (Cozaar) 25 mg PO DAILY [facility] Last Admin: 12/27/18 14:02 Dose: Not Given Metoprolol Succinate (Toprol Xl) 12.5 mg PO DAILY [facility] Last Admin: 12/28/18 09:56 Dose: 12.5 mg Nystatin (Nystatin Oral Susp) 5 ml PO QID [facility] Last Admin: 12/28/18 21:23 Dose: 5 ml Potassium Chloride (K-Dur 20 Meq Er Tab) 20 meq PO DAILY [facility] Last Admin: 12/28/18 10:08 Dose: 20 meq Prednisolone Acetate (Pred Forte 1% Opht Susp) 0 ml OU QID [facility] Last Admin: 12/28/18 21:46 Dose: 2 drop Rosuvastatin Calcium (Crestor) 10 mg PO HS [facility] Last Admin: 12/28/18 21:23 Dose: 10 mg Sitagliptin Phosphate (Januvia) 100 mg PO DAILY [facility] Last Admin: 12/28/18 09:56 Dose: 100 mg - Labs Labs: 12/28/18 07:25 12/28/18 07:25 PT 16.8 SECONDS (9.7-12.2) H 12/25/18 16:43 INR 1.5 12/25/18 16:43 APTT 43 SECONDS (21-34) H 12/25/18 16:43 Assessment and Plan - Assessment and Plan (Free Text) Assessment: This is a 58 y o male PMhx CAD s/p CABG in 2003, stent in 2010, DM2, PVD, HLD, angina, HTN, gastritis, asthma, GASTON, who presented to the ED with c/o shortness of breath, chest pain, and LE edema. Pt currently admitted for HFpEF exacerbation, [id number]. Reason for ICU consult was for pt's clinical management necessitating Lasix drip. Pt to be transferred to ICU for monitoring while on Lasix drip. Plan: Neuro: -AAOx3, no gross deficits on exam -Cont to monitor Cardio: -HFpEF exacerbation, [id number] -Hx CAD s/p CABG and stent -Trop neg -Pro-BNP elevated on admission -Echo done today, f/u results -Cardiology consulted (Dr. Yan), recs appreciated, rec Lasix drip at rate of 5; strict I's/O's, daily weights -CXR on admission demonstrated pulm vasc congestion, L pleural effusion -ASA, Plavix -Lasix drip -Toprol, Cozaar -Crestor -Zosyn (started 12/25) -Nephro (Dr. Nixon) consulted: rec replete K, 1 L fluid restriction Pulm: -Pulm HTN, asthma, GASTON -BiPap -Duonebs as scheduled -Breo Ellipta, Ventolin -CXR as noted above -Pulm consulted, Dr. 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 Kapadia), recs appreciated Pred Forte OU drops qid Cipro drops bid Renal: -BUN/Cr 30/1.5, cont to trend -Strict I's/O's -Nephro consulted -Replete with K daily while on Lasix drip, cont to trend Heme/ID: -H/H 34.6, no leukocytosis -Currently on Zosyn PPX: -Heparin, Pepcid -HHD -PT/OT
[2018-12-29 06:35] LABS: BASO % 0.5 % (0.0-2.0); EOS # 0.2 K/uL (0.0-0.7); EOS % 2.9 % (0.0-4.0); HEMOGLOBIN 10.9 g/dL (12.0-18.0); LYMPH # 1.9 K/uL (1.0-4.3); LYMPH % 24.9 % (20.0-40.0); MEAN CELL VOLUME 78.1 fL (80.0-94.0); MEAN CORPUSCULAR HEMOGLOBIN 24.6 pg (27.0-31.0); MEAN CORPUSCULAR HGB CONC 31.5 g/dL (33.0-37.0); MEAN PLATELET VOLUME 8.7 fL (7.2-11.7); MONO % 12.9 % (0.0-10.0); NEUT # 4.5 K/uL (1.8-7.0); NEUT % 58.8 % (50.0-75.0); NRBC % 0.1 % (0.0-2.0); RBC 4.44 Mil/uL (4.40-5.90); RED CELL DISTRIBUTION WIDTH 19.8 % (11.5-14.5); WHITE BLOOD COUNT 7.6 K/uL (4.8-10.8)
[2018-12-29 06:46] LABS: ALBUMIN 3.4 g/dL (3.5-5.0); ALT/SGPT 20 U/L (21-72); AST/SGOT 48 U/L (17-59); BLOOD UREA NITROGEN 22 mg/dL (9-20); CALCIUM 8.9 mg/dl (8.6-10.4); GFR NON-AFRICAN AMERICAN 52
[2018-12-29] MEDS: (Novolog) Insulin Aspart, Recombinant 100 u/ml 10 ml vial SC SCH ×4 (07:39→22:00)
[2018-12-29] MEDS: Potassium Chloride 20 mEq/15 ml LIQ UD PO SCH ×2 (07:55→09:23)
[2018-12-29] MEDS: Fluticasone-Vilanterol 100/25mcg Diskus INH SCH (08:38)
[2018-12-29] MEDS: Albuterol HFA 90 mcg/actuation (8 g) IH PRN (08:39)
[2018-12-29] MEDS: Potassium Chloride 20 mEq ER Tab PO SCH (09:12)
[2018-12-29] MEDS: Metoprolol Succinate 12.5 mg XL Tab PO SCH (09:13)
[2018-12-29] MEDS: Nystatin 100,000 Units/ml Oral Susp 5 ml UD PO SCH ×4 (09:13→21:15)
[2018-12-29] MEDS: PrednisoLONE 1% Opht Susp(5 ml) OU SCH ×4 (09:14→21:00)
[2018-12-29] MEDS: Furosemide 100 MG in Sodium Chloride 0.9% 90 ML IV SCH ×2 (09:15→12:41)
--- NOTE | 2018-12-29 14:01 | CP.CCUPN ---
CCU Objective - Vital Signs / Intake & Output Vital Signs (Last 4 hours): Vital Signs Pulse Resp BP Pulse Ox 12/29/18 12:00 84 20 96 12/29/18 11:58 84 21 109/58 L 97 12/29/18 11:00 91 H 22 97 12/29/18 10:57 86 21 139/58 L 97 Intake and Output (Last 8hrs): Intake & Output 12/28/18 12/29/18 12/29/18 22:59 06:59 14:59 Intake Total 1473 90 360 Output Total 830 1700 740 Balance 643 -1610 -380 Weight 165 lb 164 lb 1.6 oz Intake: Intake, IV Amount 85 90 20 Left Forearm 50 50 Right Antecubital 35 40 20 Oral 1388 340 Output: Urine 830 1700 740 Urine, Voided 830 1700 740 Other: # Voids Urine, Voided 3 # Bowel Movements 1 0 - Medications Active Medications: Active Medications Generic Name Dose Route Start Last Admin Trade Name Freq PRN Reason Stop Dose Admin Albuterol 2 puff 12/25/18 19:09 12/29/18 08:39 Ventolin Hfa 90 Mcg/Actuation (8 G) IH 2 puff RQ6 PRN Administration Shortness of Breath Aspirin 81 mg 12/26/18 10:00 12/29/18 09:12 Ecotrin PO 81 mg DAILY [facility] Administration Ciprofloxacin 2 drop 12/26/18 20:00 12/29/18 11:33 Ciloxan 0.3% Ophth Soln OU 2 drop Q4 [facility] Administration Clopidogrel Bisulfate 75 mg 12/26/18 10:00 12/29/18 09:13 Plavix PO 75 mg DAILY [facility] Administration Dextrose 0 ml 12/25/18 19:20 Dextrose 50% Inj IV STAT PRN Hypoglycemia Protocol Protocol Dextrose 0 gm 12/25/18 19:20 Glutose 15 PO ONCE PRN Hypoglycemia Protocol Protocol Duloxetine HCl 60 mg 12/26/18 10:00 12/29/18 09:12 Cymbalta PO 60 mg DAILY [facility] Administration Famotidine 40 mg 12/26/18 10:00 12/29/18 09:13 Pepcid PO 40 mg DAILY [facility] Administration Fluticasone/Vilanterol 1 puff 12/26/18 08:00 12/29/18 08:38 Breo Ellipta 100-25 Mcg Inh INH 1 puff RQD [facility] Administration Furosemide 40 mg 12/29/18 18:00 Lasix IVP BID [facility] Gabapentin 100 mg 12/26/18 10:00 12/29/18 09:12 Neurontin PO 100 mg BID [facility] Administration Glucagon 0 mg 12/25/18 19:20 Glucagen Diagnostic Kit IM STAT PRN Hypoglycemia Protocol Protocol Piperacillin Sod/Tazobactam Sod 3.375 gm in 50 mls @ 100 mls/hr 12/25/18 20:30 12/29/18 11:34 Zosyn 3.375 Gm Iv Premix IVPB 100 mls/hr Q8H [facility] Administration Protocol Insulin Aspart 0 unit 12/26/18 13:23 12/29/18 11:36 Novolog SC 2 unit ACHS [facility] Administration Protocol Losartan Potassium 25 mg 12/27/18 14:00 12/27/18 14:02 Cozaar PO Not Given DAILY [facility] Metoprolol Succinate 12.5 mg 12/26/18 10:00 12/29/18 09:13 Toprol Xl PO 12.5 mg DAILY [facility] Administration Nystatin 5 ml 12/26/18 22:00 12/29/18 13:47 Nystatin Oral Susp PO 5 ml QID [facility] Administration Potassium Chloride 20 meq 12/28/18 10:00 12/29/18 09:12 K-Dur 20 Meq Er Tab PO 20 meq DAILY [facility] Administration Prednisolone Acetate 0 ml 12/28/18 14:00 12/29/18 13:48 Pred Forte 1% Opht Susp OU 1 drop QID [facility] Administration Rosuvastatin Calcium 10 mg 12/25/18 22:00 12/28/18 21:23 Crestor PO 10 mg HS [facility] Administration Sitagliptin Phosphate 100 mg 12/26/18 10:00 12/29/18 09:12 Januvia PO 100 mg DAILY [facility] Administration - Patient Studies Lab Studies: Lab Studies 12/29/18 12/29/18 Range/Units 06:25 06:20 WBC 7.6 (4.8-10.8) K/uL RBC 4.44 (4.40-5.90) Mil/uL Hgb 10.9 L (12.0-18.0) g/dL Hct 34.7 L (35.0-51.0) % MCV 78.1 L (80.0-94.0) fL MCH 24.6 L (27.0-31.0) pg MCHC 31.5 L (33.0-37.0) g/dL RDW 19.8 H (11.5-14.5) % Plt Count 166 (130-400) K/uL MPV 8.7 (7.2-11.7) fL Neut % (Auto) 58.8 (50.0-75.0) % Lymph % (Auto) 24.9 (20.0-40.0) % Rooks % (Auto) 12.9 H (0.0-10.0) % Eos % (Auto) 2.9 (0.0-4.0) % Baso % (Auto) 0.5 (0.0-2.0) % Neut # (Auto) 4.5 (1.8-7.0) K/uL Lymph # (Auto) 1.9 (1.0-4.3) K/uL Rooks # (Auto) 1.0 H (0.0-0.8) K/uL Eos # (Auto) 0.2 (0.0-0.7) K/uL Baso # (Auto) 0.0 (0.0-0.2) K/uL Sodium 137 (132-148) mmol/L Potassium 3.0 L (3.6-5.2) mmol/L Chloride 101 (98-107) mmol/L Carbon Dioxide 30 (22-30) mmol/L Anion Gap 9 L (10-20) BUN 22 H (9-20) mg/dL Creatinine 1.4 (0.8-1.5) mg/dL Est GFR ( Amer) > 60 Est GFR (Non-Af Amer) 52 Random Glucose 84 (75-110) mg/dL Calcium 8.9 (8.6-10.4) mg/dl Phosphorus 2.6 (2.5-4.5) mg/dL Magnesium 2.6 H (1.6-2.3) mg/dL Total Bilirubin 0.9 (0.2-1.3) mg/dL AST 48 (17-59) U/L ALT 20 L (21-72) U/L Alkaline Phosphatase 92 (38-126) U/L Total Protein 6.8 (6.3-8.3) g/dL Albumin 3.4 L (3.5-5.0) g/dL Globulin 3.4 (2.2-3.9) gm/dL Albumin/Globulin Ratio 1.0 (1.0-2.1) Laboratory Results - last 24 hr 12/29/18 12/29/18 06:20 06:25 WBC 7.6 RBC 4.44 Hgb 10.9 L Hct 34.7 L MCV 78.1 L MCH 24.6 L MCHC 31.5 L RDW 19.8 H Plt Count 166 MPV 8.7 Neut % (Auto) 58.8 Lymph % (Auto) 24.9 Rooks % (Auto) 12.9 H Eos % (Auto) 2.9 Baso % (Auto) 0.5 Neut # (Auto) 4.5 Lymph # (Auto) 1.9 Rooks # (Auto) 1.0 H Eos # (Auto) 0.2 Baso # (Auto) 0.0 Sodium 137 Potassium 3.0 L Chloride 101 Carbon Dioxide 30 Anion Gap 9 L BUN 22 H Creatinine 1.4 Est GFR ( Amer) > 60 Est GFR (Non-Af Amer) 52 Random Glucose 84 Calcium 8.9 Phosphorus 2.6 Magnesium 2.6 H Total Bilirubin 0.9 AST 48 ALT 20 L Alkaline Phosphatase 92 Total Protein 6.8 Albumin 3.4 L Globulin 3.4 Albumin/Globulin Ratio 1.0 Radiology Impressions: Radiology Impressions Chest X-Ray 12/28/18 09:46 IMPRESSION: No active disease. No significant interval change compared to the prior examination(s). Fingerstick Blood Sugar Results: 176 Critical Care Progress Note - Nutrition Nutrition: Nutrition Category Date Time Status Heart Healthy Diet [DIET] Diets 12/25/18 Dinner Active
--- NOTE | 2018-12-29 17:09 | CP.PCM.PN ---
Subjective - Date & Time of Evaluation Date of Evaluation: 12/29/18 Time of Evaluation: 15:00 - Subjective Subjective: seen and examined by me. patient was sitting on bed without discomfort, Leg edema is improving slowly,Mild sob while talking Objective - Vital Signs/Intake and Output Vital Signs (last 24 hours): Temp Pulse Resp BP Pulse Ox 98.2 F 88 19 118/70 98 12/29/18 14:00 12/29/18 17:00 12/29/18 17:00 12/29/18 16:57 12/29/18 17:00 Intake and Output: 12/29/18 12/29/18 06:59 18:59 Intake Total 160 995 Output Total 1700 1985 Balance -1540 -990 - Medications Medications: Current Medications Albuterol (Ventolin Hfa 90 Mcg/Actuation (8 G)) 2 puff IH RQ6 PRN PRN Reason: Shortness of Breath Last Admin: 12/29/18 08:39 Dose: 2 puff Aspirin (Ecotrin) 81 mg PO DAILY [facility] Last Admin: 12/29/18 09:12 Dose: 81 mg Ciprofloxacin (Ciloxan 0.3% Ophth Soln) 2 drop OU Q4 [facility] Last Admin: 12/29/18 16:16 Dose: 2 drop Clopidogrel Bisulfate (Plavix) 75 mg PO DAILY [facility] Last Admin: 12/29/18 09:13 Dose: 75 mg Dextrose (Dextrose 50% Inj) 0 ml IV STAT PRN; Protocol PRN Reason: Hypoglycemia Protocol Dextrose (Glutose 15) 0 gm PO ONCE PRN; Protocol PRN Reason: Hypoglycemia Protocol Duloxetine HCl (Cymbalta) 60 mg PO DAILY [facility] Last Admin: 12/29/18 09:12 Dose: 60 mg Famotidine (Pepcid) 40 mg PO DAILY [facility] Last Admin: 12/29/18 09:13 Dose: 40 mg Fluticasone/Vilanterol (Breo Ellipta 100-25 Mcg Inh) 1 puff INH RQD [facility] Last Admin: 12/29/18 08:38 Dose: 1 puff Furosemide (Lasix) 40 mg IVP BID [facility] Gabapentin (Neurontin) 100 mg PO BID [facility] Last Admin: 12/29/18 09:12 Dose: 100 mg Glucagon (Glucagen Diagnostic Kit) 0 mg IM STAT PRN; Protocol PRN Reason: Hypoglycemia Protocol Heparin Sodium (Porcine) (Heparin) 5,000 units SC Q8 [facility] Piperacillin Sod/Tazobactam Sod (Zosyn 3.375 Gm Iv Premix) 3.375 gm in 50 mls @ 100 mls/hr IVPB Q8H [facility]; Protocol Last Admin: 12/29/18 11:34 Dose: 100 mls/hr Insulin Aspart (Novolog) 0 unit SC ACHS [facility]; Protocol Last Admin: 12/29/18 16:41 Dose: 3 unit Losartan Potassium (Cozaar) 25 mg PO DAILY [facility] Last Admin: 12/27/18 14:02 Dose: Not Given Metoprolol Succinate (Toprol Xl) 12.5 mg PO DAILY [facility] Last Admin: 12/29/18 09:13 Dose: 12.5 mg Nystatin (Nystatin Oral Susp) 5 ml PO QID [facility] Last Admin: 12/29/18 13:47 Dose: 5 ml Potassium Chloride (K-Dur 20 Meq Er Tab) 20 meq PO DAILY [facility] Last Admin: 12/29/18 09:12 Dose: 20 meq Prednisolone Acetate (Pred Forte 1% Opht Susp) 0 ml OU QID [facility] Last Admin: 12/29/18 13:48 Dose: 1 drop Rosuvastatin Calcium (Crestor) 10 mg PO HS [facility] Last Admin: 12/28/18 21:23 Dose: 10 mg Sitagliptin Phosphate (Januvia) 100 mg PO DAILY [facility] Last Admin: 12/29/18 09:12 Dose: 100 mg - Labs Labs: 12/29/18 06:25 12/29/18 06:20 PT 16.8 SECONDS (9.7-12.2) H 12/25/18 16:43 INR 1.5 12/25/18 16:43 APTT 43 SECONDS (21-34) H 12/25/18 16:43 - Constitutional Appears: Chronically Ill - Head Exam Head Exam: NORMAL INSPECTION - Eye Exam Eye Exam: Normal appearance - ENT Exam ENT Exam: Mucous Membranes Moist - Neck Exam Neck Exam: Full ROM - Respiratory Exam Respiratory Exam: Rales, NORMAL BREATHING PATTERN - Cardiovascular Exam Cardiovascular Exam: REGULAR RHYTHM - GI/Abdominal Exam GI & Abdominal Exam: Soft, Normal Bowel Sounds - Extremities Exam Extremities Exam: absent: Full ROM (bilateral 3plus edema) - Back Exam Back Exam: NORMAL INSPECTION - Neurological Exam Neurological Exam: Awake, Oriented x3 - Psychiatric Exam Psychiatric exam: Normal Affect, Normal Mood - Skin Skin Exam: Dry, Intact, Normal Color Assessment and Plan - Assessment and Plan (Free Text) Assessment: 58yo M PMH CHF s/p cardiac cath, asthma, GASTON, gastritis, CAD s/p CABG and stent, DM2 with neuropathy, and PAD/PVD admitted for CHF exacerbation. Plan: HFpEF exacarbatio, acute on chronic Pleural Effusions Hx of CAD with CABG and stent ECHO 12/25: severe diastolic HF, patient was on lasix drip since yesterday.switch to lasix 40mg IV push Aspirin 81mg po daily, Plavix 75mg po daily, Toprol 12.5mg PO daily, Cozaar 25mg PO daily, Crestor 10mg Po qHS Zosyn 3.375gm IVPB 18 (started 12/25) Pulmonary Hypertension Asthma, Obstructive Sleep Apnea BiPAP, Duonebs, Breo Ellipta 1 puff INH daily Ventolin 2 puff IH rQ6 prn Pulm consulted: Dr. Akers Diabetes Mellitus with Neuropathy Januvia 100mg po daily, Neurontin 100mg po bid Cymbalta 60mg po daily Acute Scleritis Pred Forte OU drops QID, Cipro Drops BID Monitor Dr Kapadia Ophthalmology consulted PPx - DVT: Heparin 5000u SC q8 - GI: Pepcid 40mg po daily - Diet: HHD PT re evaluation
--- NOTE | 2018-12-29 17:46 | CP.PCM.PN ---
Subjective - Date & Time of Evaluation Date of Evaluation: 12/29/18 Time of Evaluation: 17:46 Objective - Vital Signs/Intake and Output Vital Signs (last 24 hours): Temp Pulse Resp BP Pulse Ox 98.2 F 88 19 118/70 98 12/29/18 14:00 12/29/18 17:00 12/29/18 17:00 12/29/18 17:16 12/29/18 17:00 Intake and Output: 12/29/18 12/29/18 06:59 18:59 Intake Total 160 995 Output Total 1700 1984 Balance -1540 -990 - Medications Medications: Current Medications Albuterol (Ventolin Hfa 90 Mcg/Actuation (8 G)) 2 puff IH RQ6 PRN PRN Reason: Shortness of Breath Last Admin: 12/29/18 08:39 Dose: 2 puff Aspirin (Ecotrin) 81 mg PO DAILY [facility] Last Admin: 12/29/18 09:12 Dose: 81 mg Ciprofloxacin (Ciloxan 0.3% Oph Soln) 2 drop OU Q4 [facility] Last Admin: 12/29/18 16:16 Dose: 2 drop Clopidogrel Bisulfate (Plavix) 75 mg PO DAILY [facility] Last Admin: 12/29/18 09:13 Dose: 75 mg Dextrose (Dextrose 50% Inj) 0 ml IV STAT PRN; Protocol PRN Reason: Hypoglycemia Protocol Dextrose (Glutose 15) 0 gm PO ONCE PRN; Protocol PRN Reason: Hypoglycemia Protocol Duloxetine HCl (Cymbalta) 60 mg PO DAILY [facility] Last Admin: 12/29/18 09:12 Dose: 60 mg Famotidine (Pepcid) 40 mg PO DAILY [facility] Last Admin: 12/29/18 09:13 Dose: 40 mg Fluticasone/Vilanterol (Breo Ellipta 100-25 Mcg Inh) 1 puff INH RQD [facility] Last Admin: 12/29/18 08:38 Dose: 1 puff Furosemide (Lasix) 40 mg IVP BID [facility] Last Admin: 12/29/18 17:16 Dose: 40 mg Gabapentin (Neurontin) 100 mg PO BID [facility] Last Admin: 12/29/18 17:15 Dose: 100 mg Glucagon (Glucagen Diagnostic Kit) 0 mg IM STAT PRN; Protocol PRN Reason: Hypoglycemia Protocol Heparin Sodium (Porcine) (Heparin) 5,000 units SC Q8 [facility] Last Admin: 12/29/18 17:25 Dose: 5,000 units Insulin Aspart (Novolog) 0 unit SC ACHS [facility]; Protocol Last Admin: 12/29/18 16:41 Dose: 3 unit Losartan Potassium (Cozaar) 25 mg PO DAILY [facility] Last Admin: 12/27/18 14:02 Dose: Not Given Metoprolol Succinate (Toprol Xl) 12.5 mg PO DAILY [facility] Last Admin: 12/29/18 09:13 Dose: 12.5 mg Nystatin (Nystatin Oral Susp) 5 ml PO QID [facility] Last Admin: 12/29/18 17:15 Dose: 5 ml Potassium Chloride (K-Dur 20 Meq Er Tab) 20 meq PO DAILY [facility] Last Admin: 12/29/18 09:12 Dose: 20 meq Prednisolone Acetate (Pred Forte 1% Opht Susp) 0 ml OU QID [facility] Last Admin: 12/29/18 17:16 Dose: 1 drop Rosuvastatin Calcium (Crestor) 10 mg PO HS [facility] Last Admin: 12/28/18 21:23 Dose: 10 mg Sitagliptin Phosphate (Januvia) 100 mg PO DAILY [facility] Last Admin: 12/29/18 09:12 Dose: 100 mg - Labs Labs: 12/29/18 06:25 12/29/18 06:20 PT 16.8 SECONDS (9.7-12.2) H 12/25/18 16:43 INR 1.5 12/25/18 16:43 APTT 43 SECONDS (21-34) H 12/25/18 16:43 Assessment and Plan (1) Conjunctivitis Status: Acute (2) Chronic congestive heart failure Status: Acute (3) Asthma Status: Acute (4) Dyspnea Status: Acute (5) Oral candidiasis Status: Acute
--- NOTE | 2018-12-29 20:09 | CP.PCM.PN ---
Subjective - Date & Time of Evaluation Date of Evaluation: 12/29/18 Time of Evaluation: 20:09 - Subjective Subjective: pt is seen anexamined,follow up consult is dictated #[phone] Objective - Vital Signs/Intake and Output Vital Signs (last 24 hours): Temp Pulse Resp BP Pulse Ox 98.4 F 89 26 H 119/65 98 12/29/18 16:00 12/29/18 19:00 12/29/18 19:00 12/29/18 17:57 12/29/18 19:00 Intake and Output: 12/29/18 12/30/18 18:59 06:59 Intake Total 1265 Output Total 2560 Balance -1295 - Medications Medications: Current Medications Albuterol (Ventolin Hfa 90 Mcg/Actuation (8 G)) 2 puff IH RQ6 PRN PRN Reason: Shortness of Breath Last Admin: 12/29/18 08:39 Dose: 2 puff Aspirin (Ecotrin) 81 mg PO DAILY [facility] Last Admin: 12/29/18 09:12 Dose: 81 mg Ciprofloxacin (Ciloxan 0.3% Oph Soln) 2 drop OU Q4 [facility] Last Admin: 12/29/18 16:16 Dose: 2 drop Clopidogrel Bisulfate (Plavix) 75 mg PO DAILY [facility] Last Admin: 12/29/18 09:13 Dose: 75 mg Dextrose (Dextrose 50% Inj) 0 ml IV STAT PRN; Protocol PRN Reason: Hypoglycemia Protocol Dextrose (Glutose 15) 0 gm PO ONCE PRN; Protocol PRN Reason: Hypoglycemia Protocol Duloxetine HCl (Cymbalta) 60 mg PO DAILY [facility] Last Admin: 12/29/18 09:12 Dose: 60 mg Famotidine (Pepcid) 40 mg PO DAILY [facility] Last Admin: 12/29/18 09:13 Dose: 40 mg Fluticasone/Vilanterol (Breo Ellipta 100-25 Mcg Inh) 1 puff INH RQD [facility] Last Admin: 12/29/18 08:38 Dose: 1 puff Furosemide (Lasix) 40 mg IVP BID [facility] Last Admin: 12/29/18 17:16 Dose: 40 mg Gabapentin (Neurontin) 100 mg PO BID [facility] Last Admin: 12/29/18 17:15 Dose: 100 mg Glucagon (Glucagen Diagnostic Kit) 0 mg IM STAT PRN; Protocol PRN Reason: Hypoglycemia Protocol Heparin Sodium (Porcine) (Heparin) 5,000 units SC Q8 [facility] Last Admin: 12/29/18 17:25 Dose: 5,000 units Insulin Aspart (Novolog) 0 unit SC ACHS [facility]; Protocol Last Admin: 12/29/18 16:41 Dose: 3 unit Losartan Potassium (Cozaar) 25 mg PO DAILY [facility] Last Admin: 12/27/18 14:02 Dose: Not Given Metoprolol Succinate (Toprol Xl) 12.5 mg PO DAILY [facility] Last Admin: 12/29/18 09:13 Dose: 12.5 mg Nystatin (Nystatin Oral Susp) 5 ml PO QID [facility] Last Admin: 12/29/18 17:15 Dose: 5 ml Potassium Chloride (K-Dur 20 Meq Er Tab) 20 meq PO DAILY [facility] Last Admin: 12/29/18 09:12 Dose: 20 meq Prednisolone Acetate (Pred Forte 1% Opht Susp) 0 ml OU QID [facility] Last Admin: 12/29/18 17:16 Dose: 1 drop Rosuvastatin Calcium (Crestor) 10 mg PO HS [facility] Last Admin: 12/28/18 21:23 Dose: 10 mg Sitagliptin Phosphate (Januvia) 100 mg PO DAILY [facility] Last Admin: 12/29/18 09:12 Dose: 100 mg - Labs Labs: 12/29/18 06:25 12/29/18 06:20 PT 16.8 SECONDS (9.7-12.2) H 12/25/18 16:43 INR 1.5 12/25/18 16:43 APTT 43 SECONDS (21-34) H 12/25/18 16:43
--- NOTE | 2018-12-29 23:17 | CP.PCM.PN ---
Subjective - Date & Time of Evaluation Date of Evaluation: 12/29/18 Time of Evaluation: 08:35 - Subjective Subjective: seen and examined. Improved breathing and edema Physical Examination - Constitutional Appears: Chronically Ill - Head Exam Head Exam: NORMAL INSPECTION - Eye Exam Eye Exam: Normal appearance - ENT Exam ENT Exam: Mucous Membranes Moist - Neck Exam Neck Exam: Full ROM - Respiratory Exam Respiratory Exam: Rales, NORMAL BREATHING PATTERN - Cardiovascular Exam Cardiovascular Exam: REGULAR RHYTHM - GI/Abdominal Exam GI & Abdominal Exam: Soft, Normal Bowel Sounds - Extremities Exam Extremities Exam: absent: Full ROM (bilateral 3plus edema) - Back Exam Back Exam: NORMAL INSPECTION - Neurological Exam Neurological Exam: Awake, Oriented x3 - Psychiatric Exam Psychiatric exam: Normal Affect, Normal Mood - Skin Skin Exam: Dry, Intact, Normal Color Assessment and Plan - Assessment and Plan (Free Text) Assessment: 58yo M PMH CHF s/p cardiac cath, asthma, GASTON, gastritis, CAD s/p CABG and stent, DM2 with neuropathy, and PAD/PVD admitted for CHF exacerbation. Plan: HFpEF exacarbatio, acute on chronic Pleural Effusions Hx of CAD with CABG and stent ECHO 12/25: severe diastolic HF, patient was on lasix drip since yesterday.switch to lasix 40mg IV push Aspirin 81mg po daily, Plavix 75mg po daily, Toprol 12.5mg PO daily, Cozaar 25mg PO daily, Crestor 10mg Po qHS Zosyn 3.375gm IVPB 18 (started 12/25) Pulmonary Hypertension Asthma, Obstructive Sleep Apnea BiPAP, Duonebs, Breo Ellipta 1 puff INH daily Ventolin 2 puff IH rQ6 prn Pulm consulted: Dr. Akers Diabetes Mellitus with Neuropathy Januvia 100mg po daily, Neurontin 100mg po bid Cymbalta 60mg po daily Acute Scleritis Pred Forte OU drops QID, Cipro Drops BID Monitor Dr Kapadia Ophthalmology consulted PPx - DVT: Heparin 5000u SC q8 - GI: Pepcid 40mg po daily - Diet: HHD PT re evaluation Moderate to Severe AI - Medical management for now Objective - Vital Signs/Intake and Output Vital Signs (last 24 hours): Temp Pulse Resp BP Pulse Ox 98.2 F 86 20 104/57 L 98 12/29/18 20:00 12/29/18 20:00 12/29/18 20:00 12/29/18 20:00 12/29/18 20:00 Intake and Output: 12/29/18 12/30/18 18:59 06:59 Intake Total 1265 100 Output Total 2560 300 Balance -1295 -200 - Medications Medications: Current Medications Albuterol (Ventolin Hfa 90 Mcg/Actuation (8 G)) 2 puff IH RQ6 PRN PRN Reason: Shortness of Breath Last Admin: 12/29/18 08:39 Dose: 2 puff Aspirin (Ecotrin) 81 mg PO DAILY [facility] Last Admin: 12/29/18 09:12 Dose: 81 mg Ciprofloxacin (Ciloxan 0.3% Ophth Soln) 2 drop OU Q4 [facility] Last Admin: 12/29/18 20:55 Dose: 2 drop Clopidogrel Bisulfate (Plavix) 75 mg PO DAILY [facility] Last Admin: 12/29/18 09:13 Dose: 75 mg Dextrose (Dextrose 50% Inj) 0 ml IV STAT PRN; Protocol PRN Reason: Hypoglycemia Protocol Dextrose (Glutose 15) 0 gm PO ONCE PRN; Protocol PRN Reason: Hypoglycemia Protocol Duloxetine HCl (Cymbalta) 60 mg PO DAILY [facility] Last Admin: 12/29/18 09:12 Dose: 60 mg Famotidine (Pepcid) 40 mg PO DAILY [facility] Last Admin: 12/29/18 09:13 Dose: 40 mg Fluticasone/Vilanterol (Breo Ellipta 100-25 Mcg Inh) 1 puff INH RQD [facility] Last Admin: 12/29/18 08:38 Dose: 1 puff Furosemide (Lasix) 40 mg IVP BID [facility] Last Admin: 12/29/18 17:16 Dose: 40 mg Gabapentin (Neurontin) 100 mg PO BID [facility] Last Admin: 12/29/18 17:15 Dose: 100 mg Glucagon (Glucagen Diagnostic Kit) 0 mg IM STAT PRN; Protocol PRN Reason: Hypoglycemia Protocol Heparin Sodium (Porcine) (Heparin) 5,000 units SC Q8 [facility] Last Admin: 12/29/18 21:00 Dose: 5,000 units Insulin Aspart (Novolog) 0 unit SC ACHS [facility]; Protocol Last Admin: 12/29/18 16:41 Dose: 3 unit Losartan Potassium (Cozaar) 25 mg PO DAILY [facility] Last Admin: 12/27/18 14:02 Dose: Not Given Metoprolol Succinate (Toprol Xl) 12.5 mg PO DAILY [facility] Last Admin: 12/29/18 09:13 Dose: 12.5 mg Nystatin (Nystatin Oral Susp) 5 ml PO QID [facility] Last Admin: 12/29/18 21:15 Dose: 5 ml Potassium Chloride (K-Dur 20 Meq Er Tab) 20 meq PO DAILY [facility] Last Admin: 12/29/18 09:12 Dose: 20 meq Prednisolone Acetate (Pred Forte 1% Opht Susp) 0 ml OU QID [facility] Last Admin: 12/29/18 21:00 Dose: 1 drop Rosuvastatin Calcium (Crestor) 10 mg PO HS [facility] Last Admin: 12/29/18 21:00 Dose: 10 mg Sitagliptin Phosphate (Januvia) 100 mg PO DAILY [facility] Last Admin: 12/29/18 09:12 Dose: 100 mg - Labs Labs: 12/29/18 06:25 12/29/18 06:20 PT 16.8 SECONDS (9.7-12.2) H 12/25/18 16:43 INR 1.5 12/25/18 16:43 APTT 43 SECONDS (21-34) H 12/25/18 16:43
--- NOTE | 2018-12-30 03:58 | PN ---
DATE: 12/29/2018 FOLLOWUP RENAL CONSULTATION LOCATION: The patient is located in room ICU, bed 60. REQUESTED BY: Dr. Randall. REASON FOR FOLLOWUP: CHF with increased BUN and creatinine. HISTORY OF PRESENT ILLNESS: Mr. Phelps is a 58-year-old obese male with a history of longstanding hypertension, diabetes, coronary artery disease, status post CABG, hyperlipidemia, CKD III, was admitted with the chief complaints of shortness of breath and bilateral leg swelling, and the patient was found to be in CHF with bilateral leg swelling. The patient was transferred to ICU yesterday for IV Lasix drip. The patient is not in distress. The patient is out of bed to chair. Denies any chest pain or palpitation. Denies any fever, cough, or abdominal pain. No nausea, vomiting, or diarrhea. His leg swelling is improving. PHYSICAL EXAMINATION: As follows: VITAL SIGNS: Blood pressure 104/57, pulse 86, respirations 20, temperature 98.2, saturation 98%. Height 5 feet 5 inches, weight is 164 pounds. Intake is 1563 and output is 3230. GENERAL: Mr. Phelps is a 58-year-old elderly obese male, moderately built, moderately nourished, not in distress. HEENT: Pupils normal, reactive to light and accommodation. Conjunctivae pink. Sclerae anicteric. Tongue is moist, and trachea is midline. LUNGS: Symmetric on both sides. Bilateral breath sounds present. Bilateral basal crackles present. CARDIOVASCULAR SYSTEM: [place] at the fifth intercostal space and midclavicular line. S1, S2 audible. No murmur or gallop. The patient has a midsternal scar present from the previous CABG. ABDOMEN: Slightly protuberant, soft, tympanitic. No guarding. No rigidity. No hepatosplenomegaly. CENTRAL NERVOUS SYSTEM: The patient is alert, awake, and oriented x3. Sensory and motor system is within normal limits. EXTREMITIES: No cyanosis, no clubbing. The patient has a 1+ edema in both lower extremities. MEDICATIONS: His current medications include as follows; Breo Ellipta, ciprofloxacin eye drops, losartan is on hold, Crestor 10 mg at bedtime, Cymbalta 60 mg p.o. daily, aspirin 81 mg p.o. daily, subcu heparin 5000 units every 8 hours, Januvia 100 mg p.o. daily, K-Dur 20 mEq p.o. daily, Lasix 40 mg IV b.i.d., Neurontin 100 mg p.o. b.i.d., nystatin oral suspension 5 mL p.o. 4 times a day, Pepcid 40 mg p.o. daily, Plavix 75 mg daily, metoprolol 12.5 mg p.o. daily, and Ventolin inhaler. LABORATORY DATA: Include as follows: As of 12/29/2018, WBC 7.6, hemoglobin 10.9, hematocrit is 34.7, platelets 166. Sodium 137, potassium is 3, chloride 101, CO2 31, BUN 22, creatinine 1.4, GFR is 52, glucose 84, calcium 8.9, phosphorus 2.6, magnesium 2.6. Total bili 0.9, AST 48, ALT 20, alkaline phosphatase 92, total protein 6.9, albumin is 3.4. Chest x-ray, as of 12/28/2018, at 09:46 a.m., impression: No active disease. No significant interval change compared to the prior examination. No pulmonary vascular congestion. ASSESSMENT AND PLAN: In summary, Mr. Phelps is a 58-year-old elderly male with a history of hypertension, diabetes, hyperlipidemia, coronary artery disease, status post coronary artery bypass graft, was admitted with bilateral leg swelling and shortness of breath and found to be in congestive heart failure, started on intravenous Lasix, and subsequently, the patient was transferred yesterday for intravenous Lasix drip. The patient has good diuresis since he was transferred to intensive care unit with intravenous Lasix drip, and the patient is out of bed to chair. 1. Chronic kidney disease III, most likely secondary to combination of hypertensive nephrosclerosis and diabetic nephropathy. 2. Severe aortic regurgitation. 3. Congestive heart failure. 4. Edema secondary to fluid overload. Continue gentle diuresis. 5. Hypokalemia secondary to diuretics. Continue supplement potassium as needed. Thank you for allowing me to participate in your patient's care. Annmarie Nixon MD
[2018-12-30] MEDS: Ciprofloxacin 0.3% OPTH SOLN OU SCH ×7 (05:00→23:15)
[2018-12-30 06:40] LABS: BASO # 0.1 K/uL (0.0-0.2); BASO % 0.6 % (0.0-2.0); EOS # 0.2 K/uL (0.0-0.7); EOS % 2.9 % (0.0-4.0); HEMOGLOBIN 11.8 g/dL (12.0-18.0); LYMPH # 2.2 K/uL (1.0-4.3); LYMPH % 27.4 % (20.0-40.0); MEAN CORPUSCULAR HEMOGLOBIN 25.3 pg (27.0-31.0); MEAN CORPUSCULAR HGB CONC 32.5 g/dL (33.0-37.0); MEAN PLATELET VOLUME 8.8 fL (7.2-11.7); NEUT # 4.6 K/uL (1.8-7.0); NEUT % 57.1 % (50.0-75.0); NRBC % 0.1 % (0.0-2.0); RBC 4.67 Mil/uL (4.40-5.90); RED CELL DISTRIBUTION WIDTH 19.3 % (11.5-14.5); WHITE BLOOD COUNT 8.1 K/uL (4.8-10.8)
[2018-12-30 06:52] LABS: ALBUMIN 3.5 g/dL (3.5-5.0); ALT/SGPT 24 U/L (21-72); AST/SGOT 45 U/L (17-59); BLOOD UREA NITROGEN 21 mg/dL (9-20); CALCIUM 8.9 mg/dl (8.6-10.4); GFR NON-AFRICAN AMERICAN 52
[2018-12-30] MEDS: (Novolog) Insulin Aspart, Recombinant 100 u/ml 10 ml vial SC SCH ×4 (07:38→21:23)
[2018-12-30] MEDS: Fluticasone-Vilanterol 100/25mcg Diskus INH SCH (09:03)
[2018-12-30] MEDS: Nystatin 100,000 Units/ml Oral Susp 5 ml UD PO SCH ×4 (10:07→23:15)
[2018-12-30] MEDS: Metoprolol Succinate 12.5 mg XL Tab PO SCH (10:07)
[2018-12-30] MEDS: PrednisoLONE 1% Opht Susp(5 ml) OU SCH ×4 (10:07→21:24)
[2018-12-30] MEDS: Potassium Chloride 20 mEq ER Tab PO SCH (10:08)
--- NOTE | 2018-12-30 12:29 | CP.PCM.PN ---
Subjective - Date & Time of Evaluation Date of Evaluation: 12/30/18 Time of Evaluation: 11:29 - Subjective Subjective: PGY-1 Rosalie Veliz D.O. Medicine progress note for Dr. Randall's service: Patient was seen and examined this morning. He is sitting up in a chair at bedside. He states that he is feeling better. He says he just walked around the unit. He says his leg swelling is improved. He denies SOB and is comfortable on room air. Objective - Vital Signs/Intake and Output Vital Signs (last 24 hours): Temp Pulse Resp BP Pulse Ox 99.1 F 96 H 19 124/62 100 12/30/18 12:00 12/30/18 12:00 12/30/18 12:00 12/30/18 12:00 12/30/18 12:00 Intake and Output: 12/30/18 12/30/18 06:59 18:59 Intake Total 100 Output Total 650 Balance -550 - Medications Medications: Current Medications Albuterol (Ventolin Hfa 90 Mcg/Actuation (8 G)) 2 puff IH RQ6 PRN PRN Reason: Shortness of Breath Last Admin: 12/29/18 08:39 Dose: 2 puff Aspirin (Ecotrin) 81 mg PO DAILY [facility] Last Admin: 12/30/18 10:07 Dose: 81 mg Ciprofloxacin (Ciloxan 0.3% Ophth Soln) 2 drop OU Q4 [facility] Last Admin: 12/30/18 12:00 Dose: 2 drop Clopidogrel Bisulfate (Plavix) 75 mg PO DAILY [facility] Last Admin: 12/30/18 10:08 Dose: 75 mg Dextrose (Dextrose 50% Inj) 0 ml IV STAT PRN; Protocol PRN Reason: Hypoglycemia Protocol Dextrose (Glutose 15) 0 gm PO ONCE PRN; Protocol PRN Reason: Hypoglycemia Protocol Duloxetine HCl (Cymbalta) 60 mg PO DAILY [facility] Last Admin: 12/30/18 10:07 Dose: 60 mg Famotidine (Pepcid) 40 mg PO DAILY [facility] Last Admin: 12/30/18 10:07 Dose: 40 mg Fluticasone/Vilanterol (Breo Ellipta 100-25 Mcg Inh) 1 puff INH RQD [facility] Last Admin: 12/30/18 09:03 Dose: 1 puff Furosemide (Lasix) 40 mg IVP BID [facility] Last Admin: 12/30/18 10:08 Dose: 40 mg Gabapentin (Neurontin) 100 mg PO BID [facility] Last Admin: 12/30/18 10:07 Dose: 100 mg Glucagon (Glucagen Diagnostic Kit) 0 mg IM STAT PRN; Protocol PRN Reason: Hypoglycemia Protocol Heparin Sodium (Porcine) (Heparin) 5,000 units SC Q8 [facility] Last Admin: 12/30/18 05:00 Dose: 5,000 units Insulin Aspart (Novolog) 0 unit SC ACHS [facility]; Protocol Last Admin: 12/30/18 11:58 Dose: 2 unit Losartan Potassium (Cozaar) 25 mg PO DAILY [facility] Last Admin: 12/27/18 14:02 Dose: Not Given Metoprolol Succinate (Toprol Xl) 12.5 mg PO DAILY [facility] Last Admin: 12/30/18 10:07 Dose: 12.5 mg Nystatin (Nystatin Oral Susp) 5 ml PO QID [facility] Last Admin: 12/30/18 10:07 Dose: 5 ml Potassium Chloride (K-Dur 20 Meq Er Tab) 20 meq PO DAILY [facility] Last Admin: 12/30/18 10:08 Dose: 20 meq Prednisolone Acetate (Pred Forte 1% Opht Susp) 0 ml OU QID [facility] Last Admin: 12/30/18 10:07 Dose: 1 drop Rosuvastatin Calcium (Crestor) 10 mg PO HS [facility] Last Admin: 12/29/18 21:00 Dose: 10 mg Sitagliptin Phosphate (Januvia) 100 mg PO DAILY [facility] Last Admin: 12/30/18 10:07 Dose: 100 mg - Labs Labs: 12/30/18 06:28 12/30/18 06:27 PT 16.8 SECONDS (9.7-12.2) H 12/25/18 16:43 INR 1.5 12/25/18 16:43 APTT 43 SECONDS (21-34) H 12/25/18 16:43 - Constitutional Appears: No Acute Distress - Head Exam Head Exam: ATRAUMATIC, NORMAL INSPECTION - Eye Exam Eye Exam: EOMI, Normal appearance - ENT Exam ENT Exam: Mucous Membranes Moist - Respiratory Exam Respiratory Exam: Rales (improved), NORMAL BREATHING PATTERN. absent: Respiratory Distress - Cardiovascular Exam Cardiovascular Exam: RRR, +S1, +S2 - GI/Abdominal Exam GI & Abdominal Exam: Soft. absent: Tenderness - Extremities Exam Extremities Exam: Pedal Edema (1+ bilateral ankles). absent: Tenderness - Neurological Exam Neurological Exam: Alert, Awake, CN II-XII Intact, Oriented x3 - Psychiatric Exam Psychiatric exam: Normal Affect, Normal Mood - Skin Skin Exam: Dry, Normal Color, Warm Assessment and Plan - Assessment and Plan (Free Text) Assessment: 58 yo male with CHF, asthma, GASTON, gastritis, CAD s/p CABG and stent, T2DM with neuropathy, and PAD/PVD admitted for CHF exacerbation. Patient initially unable to be managed on the floors and required ICU for Lasix drip x2 days. He is now on BID Lasix and downgraded to telemetry. He is clinically much improved and emerald l likely be ready for discharge soon. Pending PT re-evaluation. Plan: Acute exacerbation of Diastolic congestive heart failure (HFpEF) - BNP 6980 - Trop negative - CXR on admission: pulmonary vascular congestion, L pleural effusion - Repeat CXR: no active disease, no significant pleural effusions - Echo: severe diastolic HF - Pending final read - BiPAP, NC PRN- patient no longer requiring supplemental O2 - Strict I's & O's - Daily weights - 1.2 L fluid restriction - Zosyn discontinued - Cozaar 25 mg PO daily on HOLD due to MATTHEW - Metoprolol 12.5 mg PO daily - Lasix 40 mg IV BID - KCl 20 mEq daily - Cardiology consulted (Yuriy) - PT- pending re-eval post-ICU Acute kidney injury, improving - BUN/Cr on admission 35/1.3--> 33/1.7--> 21/1.4 - Nephrology consulted (Tiffani)- continue Lasix, KCl replacement, fluid restriction Acute Scleritis, improving - Pred Forte drops OU QID - Cipro drops OU BID - Ophthalmology consulted (Steffi) Coronary artery disease and Peripheral vascular disease, chronic- s/p CABG and stent - Aspirin 81 mg PO daily - Plavix 75 mg PO daily - Crestor 10 mg PO QHS Pulmonary Hypertension 2/2 Asthma and Obstructive Sleep Apnea, chronic - Breo Ellipta 1 puff INH daily - Ventolin 2 puff IH Q6H PRN - Nystatin 5 mL PO QID - Pulmonology consulted (Delphine) Type 2 diabetes Mellitus with peripheral neuropathy, chronic - A1c 6.7 - Accuchecks ACHS - Hypoglycemia protocol - ISS medium - Januvia 100 mg PO daily - Neurontin 100 mg PO BID - Cymbalta 60 mg PO daily Hypertension, chronic - Vitals Q6H Ppx: VTE: SCDs contraindicated due to LE edema, Heparin 5000 units SC Q8H GI: Pepcid 40 mg PO daily Diet: Heart healthy, 1.2 L restriction Case discussed with attending, Dr. Randall.
--- NOTE | 2018-12-30 15:30 | CP.PCM.PN ---
Subjective - Date & Time of Evaluation Date of Evaluation: 12/30/18 Time of Evaluation: 15:29 - Subjective Subjective: pt is seen and examined,follow up consult is dictated #[id number] c/w lasix , gentle diuresis Objective - Vital Signs/Intake and Output Vital Signs (last 24 hours): Temp Pulse Resp BP Pulse Ox 99.1 F 96 H 19 124/62 100 12/30/18 12:00 12/30/18 12:00 12/30/18 12:00 12/30/18 12:00 12/30/18 12:00 Intake and Output: 12/30/18 12/30/18 06:59 18:59 Intake Total 100 Output Total 650 Balance -550 - Medications Medications: Current Medications Albuterol (Ventolin Hfa 90 Mcg/Actuation (8 G)) 2 puff IH RQ6 PRN PRN Reason: Shortness of Breath Last Admin: 12/29/18 08:39 Dose: 2 puff Aspirin (Ecotrin) 81 mg PO DAILY [facility] Last Admin: 12/30/18 10:07 Dose: 81 mg Ciprofloxacin (Ciloxan 0.3% Oph Soln) 2 drop OU Q4 [facility] Last Admin: 12/30/18 12:00 Dose: 2 drop Clopidogrel Bisulfate (Plavix) 75 mg PO DAILY [facility] Last Admin: 12/30/18 10:08 Dose: 75 mg Dextrose (Dextrose 50% Inj) 0 ml IV STAT PRN; Protocol PRN Reason: Hypoglycemia Protocol Dextrose (Glutose 15) 0 gm PO ONCE PRN; Protocol PRN Reason: Hypoglycemia Protocol Duloxetine HCl (Cymbalta) 60 mg PO DAILY [facility] Last Admin: 12/30/18 10:07 Dose: 60 mg Famotidine (Pepcid) 40 mg PO DAILY [facility] Last Admin: 12/30/18 10:07 Dose: 40 mg Fluticasone/Vilanterol (Breo Ellipta 100-25 Mcg Inh) 1 puff INH RQD [facility] Last Admin: 12/30/18 09:03 Dose: 1 puff Furosemide (Lasix) 40 mg IVP BID [facility] Last Admin: 12/30/18 10:08 Dose: 40 mg Gabapentin (Neurontin) 100 mg PO BID [facility] Last Admin: 12/30/18 10:07 Dose: 100 mg Glucagon (Glucagen Diagnostic Kit) 0 mg IM STAT PRN; Protocol PRN Reason: Hypoglycemia Protocol Heparin Sodium (Porcine) (Heparin) 5,000 units SC Q8 [facility] Last Admin: 12/30/18 13:35 Dose: 5,000 units Insulin Aspart (Novolog) 0 unit SC ACHS [facility]; Protocol Last Admin: 12/30/18 11:58 Dose: 2 unit Losartan Potassium (Cozaar) 25 mg PO DAILY [facility] Last Admin: 12/27/18 14:02 Dose: Not Given Metoprolol Succinate (Toprol Xl) 12.5 mg PO DAILY [facility] Last Admin: 12/30/18 10:07 Dose: 12.5 mg Nystatin (Nystatin Oral Susp) 5 ml PO QID [facility] Last Admin: 12/30/18 13:35 Dose: 5 ml Potassium Chloride (K-Dur 20 Meq Er Tab) 20 meq PO DAILY [facility] Last Admin: 12/30/18 10:08 Dose: 20 meq Prednisolone Acetate (Pred Forte 1% Opht Susp) 0 ml OU QID [facility] Last Admin: 12/30/18 13:34 Dose: 1 drop Rosuvastatin Calcium (Crestor) 10 mg PO HS [facility] Last Admin: 12/29/18 21:00 Dose: 10 mg Sitagliptin Phosphate (Januvia) 100 mg PO DAILY [facility] Last Admin: 12/30/18 10:07 Dose: 100 mg - Labs Labs: 12/30/18 06:28 12/30/18 06:27 PT 16.8 SECONDS (9.7-12.2) H 12/25/18 16:43 INR 1.5 12/25/18 16:43 APTT 43 SECONDS (21-34) H 12/25/18 16:43
--- NOTE | 2018-12-30 16:54 | CP.PCM.PN ---
Objective - Vital Signs/Intake and Output Vital Signs (last 24 hours): Temp Pulse Resp BP Pulse Ox 99.1 F 96 H 19 124/62 100 12/30/18 12:00 12/30/18 12:00 12/30/18 12:00 12/30/18 12:00 12/30/18 12:00 Intake and Output: 12/30/18 12/30/18 06:59 18:59 Intake Total 100 Output Total 650 Balance -550 - Medications Medications: Current Medications Albuterol (Ventolin Hfa 90 Mcg/Actuation (8 G)) 2 puff IH RQ6 PRN PRN Reason: Shortness of Breath Last Admin: 12/29/18 08:39 Dose: 2 puff Aspirin (Ecotrin) 81 mg PO DAILY [facility] Last Admin: 12/30/18 10:07 Dose: 81 mg Ciprofloxacin (Ciloxan 0.3% Ophth Soln) 2 drop OU Q4 [facility] Last Admin: 12/30/18 16:14 Dose: 2 drop Clopidogrel Bisulfate (Plavix) 75 mg PO DAILY [facility] Last Admin: 12/30/18 10:08 Dose: 75 mg Dextrose (Dextrose 50% Inj) 0 ml IV STAT PRN; Protocol PRN Reason: Hypoglycemia Protocol Dextrose (Glutose 15) 0 gm PO ONCE PRN; Protocol PRN Reason: Hypoglycemia Protocol Duloxetine HCl (Cymbalta) 60 mg PO DAILY [facility] Last Admin: 12/30/18 10:07 Dose: 60 mg Famotidine (Pepcid) 40 mg PO DAILY [facility] Last Admin: 12/30/18 10:07 Dose: 40 mg Fluticasone/Vilanterol (Breo Ellipta 100-25 Mcg Inh) 1 puff INH RQD [facility] Last Admin: 12/30/18 09:03 Dose: 1 puff Furosemide (Lasix) 40 mg IVP BID [facility] Last Admin: 12/30/18 10:08 Dose: 40 mg Gabapentin (Neurontin) 100 mg PO BID [facility] Last Admin: 12/30/18 10:07 Dose: 100 mg Glucagon (Glucagen Diagnostic Kit) 0 mg IM STAT PRN; Protocol PRN Reason: Hypoglycemia Protocol Heparin Sodium (Porcine) (Heparin) 5,000 units SC Q8 [facility] Last Admin: 12/30/18 13:35 Dose: 5,000 units Insulin Aspart (Novolog) 0 unit SC ACHS [facility]; Protocol Last Admin: 12/30/18 16:16 Dose: 4 unit Losartan Potassium (Cozaar) 25 mg PO DAILY [facility] Last Admin: 12/27/18 14:02 Dose: Not Given Metoprolol Succinate (Toprol Xl) 12.5 mg PO DAILY [facility] Last Admin: 12/30/18 10:07 Dose: 12.5 mg Nystatin (Nystatin Oral Susp) 5 ml PO QID [facility] Last Admin: 12/30/18 13:35 Dose: 5 ml Potassium Chloride (K-Dur 20 Meq Er Tab) 20 meq PO DAILY [facility] Last Admin: 12/30/18 10:08 Dose: 20 meq Prednisolone Acetate (Pred Forte 1% Opht Susp) 0 ml OU QID [facility] Last Admin: 12/30/18 13:34 Dose: 1 drop Rosuvastatin Calcium (Crestor) 10 mg PO HS [facility] Last Admin: 12/29/18 21:00 Dose: 10 mg Sitagliptin Phosphate (Januvia) 100 mg PO DAILY [facility] Last Admin: 12/30/18 10:07 Dose: 100 mg - Labs Labs: 12/30/18 06:28 12/30/18 06:27 PT 16.8 SECONDS (9.7-12.2) H 12/25/18 16:43 INR 1.5 12/25/18 16:43 APTT 43 SECONDS (21-34) H 12/25/18 16:43 Assessment and Plan (1) Conjunctivitis Status: Acute (2) Chronic congestive heart failure Status: Acute (3) Asthma Status: Acute (4) Dyspnea Status: Acute (5) Oral candidiasis Status: Acute
--- NOTE | 2018-12-30 22:50 | CP.PCM.PN ---
Subjective - Date & Time of Evaluation Date of Evaluation: 12/30/18 Time of Evaluation: 09:45 - Subjective Subjective: seen and examined. Improved breathing and edema No cardiac events Physical Examination - Constitutional Appears: Chronically Ill - Head Exam Head Exam: NORMAL INSPECTION - Eye Exam Eye Exam: Normal appearance - ENT Exam ENT Exam: Mucous Membranes Moist - Neck Exam Neck Exam: Full ROM - Respiratory Exam Respiratory Exam: Rales, NORMAL BREATHING PATTERN - Cardiovascular Exam Cardiovascular Exam: REGULAR RHYTHM - GI/Abdominal Exam GI & Abdominal Exam: Soft, Normal Bowel Sounds - Extremities Exam Extremities Exam: absent: Full ROM (bilateral 3plus edema) - Back Exam Back Exam: NORMAL INSPECTION - Neurological Exam Neurological Exam: Awake, Oriented x3 - Psychiatric Exam Psychiatric exam: Normal Affect, Normal Mood - Skin Skin Exam: Dry, Intact, Normal Color Assessment and Plan - Assessment and Plan (Free Text) Assessment: 58yo M PMH CHF s/p cardiac cath, asthma, GASTON, gastritis, CAD s/p CABG and stent, DM2 with neuropathy, and PAD/PVD admitted for CHF exacerbation. Plan: HFpEF exacarbatio, acute on chronic Pleural Effusions Hx of CAD with CABG and stent ECHO 12/25: severe diastolic HF, patient was on lasix drip since yesterday.switch to lasix 40mg IV push Aspirin 81mg po daily, Plavix 75mg po daily, Toprol 12.5mg PO daily, Cozaar 25mg PO daily, Crestor 10mg Po qHS Zosyn 3.375gm IVPB 18 (started 12/25) Pulmonary Hypertension Asthma, Obstructive Sleep Apnea BiPAP, Duonebs, Breo Ellipta 1 puff INH daily Ventolin 2 puff IH rQ6 prn Pulm consulted: Dr. Akers Diabetes Mellitus with Neuropathy Januvia 100mg po daily, Neurontin 100mg po bid Cymbalta 60mg po daily Acute Scleritis Pred Forte OU drops QID, Cipro Drops BID Monitor Dr Kapadia Ophthalmology consulted PPx - DVT: Heparin 5000u SC q8 - GI: Pepcid 40mg po daily - Diet: HHD PT re evaluation Moderate to Severe AI - Medical management for now Objective - Vital Signs/Intake and Output Vital Signs (last 24 hours): Temp Pulse Resp BP Pulse Ox 97.4 F L 91 H 18 115/65 100 12/30/18 16:00 12/30/18 20:00 12/30/18 20:00 12/30/18 20:00 12/30/18 20:00 Intake and Output: 12/30/18 12/31/18 18:59 06:59 Intake Total 920 Output Total 1250 Balance -330 - Medications Medications: Current Medications Albuterol (Ventolin Hfa 90 Mcg/Actuation (8 G)) 2 puff IH RQ6 PRN PRN Reason: Shortness of Breath Last Admin: 12/29/18 08:39 Dose: 2 puff Aspirin (Ecotrin) 81 mg PO DAILY [facility] [place] Last Admin: 12/30/18 10:07 Dose: 81 mg Ciprofloxacin (Ciloxan 0.3% Ophth Soln) 2 drop OU Q4 [facility] [place] Last Admin: 12/30/18 20:16 Dose: 2 drop Clopidogrel Bisulfate (Plavix) 75 mg PO DAILY [facility] [place] Last Admin: 12/30/18 10:08 Dose: 75 mg Dextrose (Dextrose 50% Inj) 0 ml IV STAT PRN; Protocol PRN Reason: Hypoglycemia Protocol Dextrose (Glutose 15) 0 gm PO ONCE PRN; Protocol PRN Reason: Hypoglycemia Protocol Duloxetine HCl (Cymbalta) 60 mg PO DAILY [facility] [place] Last Admin: 12/30/18 10:07 Dose: 60 mg Famotidine (Pepcid) 40 mg PO DAILY [facility] [place] Last Admin: 12/30/18 10:07 Dose: 40 mg Fluticasone/Vilanterol (Breo Ellipta 100-25 Mcg Inh) 1 puff INH RQD [facility] [place] Last Admin: 12/30/18 09:03 Dose: 1 puff Furosemide (Lasix) 40 mg IVP BID [facility] [place] Last Admin: 12/30/18 17:11 Dose: 40 mg Gabapentin (Neurontin) 100 mg PO BID [facility] [place] Last Admin: 12/30/18 17:10 Dose: 100 mg Glucagon (Glucagen Diagnostic Kit) 0 mg IM STAT PRN; Protocol PRN Reason: Hypoglycemia Protocol Heparin Sodium (Porcine) (Heparin) 5,000 units SC Q8 [facility] [place] Last Admin: 12/30/18 21:23 Dose: 5,000 units Insulin Aspart (Novolog) 0 unit SC ACHS [facility]; Protocol Last Admin: 12/30/18 21:23 Dose: Not Given Losartan Potassium (Cozaar) 25 mg PO DAILY [facility] [place] Last Admin: 12/27/18 14:02 Dose: Not Given Metoprolol Succinate (Toprol Xl) 12.5 mg PO DAILY [facility] [place] Last Admin: 12/30/18 10:07 Dose: 12.5 mg Nystatin (Nystatin Oral Susp) 5 ml PO QID [facility] [place] Last Admin: 12/30/18 17:10 Dose: 5 ml Potassium Chloride (K-Dur 20 Meq Er Tab) 20 meq PO DAILY [facility] [place] Last Admin: 12/30/18 10:08 Dose: 20 meq Prednisolone Acetate (Pred Forte 1% Opht Susp) 0 ml OU QID [facility] [place] Last Admin: 12/30/18 21:24 Dose: 1 drop Rosuvastatin Calcium (Crestor) 10 mg PO HS [facility] [place] Last Admin: 12/30/18 21:23 Dose: 10 mg Sitagliptin Phosphate (Januvia) 100 mg PO DAILY [facility] [place] Last Admin: 12/30/18 10:07 Dose: 100 mg - Labs Labs: 12/30/18 06:28 12/30/18 06:27 PT 16.8 SECONDS (9.7-12.2) H 12/25/18 16:43 INR 1.5 12/25/18 16:43 APTT 43 SECONDS (21-34) H 12/25/18 16:43
[2018-12-31 01:17] VITALS: RESP 20
--- NOTE | 2018-12-31 03:27 | PN ---
DATE: 12/30/2018 FOLLOWUP RENAL CONSULTATION LOCATION: The patient is located in ICU, room 16. REQUESTED BY: Dr. Torres. REASON FOR FOLLOWUP: CHF, edema of the legs, CKD III. SUBJECTIVE: Mr. Phelps is a 58-year-old elderly, obese male with a history of longstanding hypertension; diabetes; coronary artery disease, status post CABG, multiple stents; severe aortic regurgitation; CHF; was admitted with bilateral leg swelling, shortness of breath, increased BUN and creatinine. The patient was initially started on IV Lasix with good response and subsequently transferred to ICU for Lasix drip. The patient is feeling much better, not in distress. No chest pain or palpitation. No fever. No cough. No abdominal pain. No nausea, vomiting or diarrhea. PHYSICAL EXAMINATION: VITAL SIGNS: Blood pressure 124/62, pulse 96, respirations 19, temperature 99.1, saturation 100%. Height 5 feet 5 inches, weight is 164 pounds. GENERAL: Mr. Phelps is a 58-year-old elderly male, moderately built, moderately nourished, not in distress. HEENT: Pupils are normal and reactive to light and accommodation. Conjunctivae pink. Sclerae anicteric. Tongue is moist. NECK: Trachea is midline. LUNGS: Symmetric on both sides. Bilateral breath sounds present. Bilateral basal crackles present. CARDIOVASCULAR SYSTEM: [place] at the fifth intercostal space, midclavicular line. S1 and S2 audible. No murmur or gallop. ABDOMEN: Normal in appearance, soft, tympanitic. No guarding. No rigidity. No hepatosplenomegaly. CENTRAL NERVOUS SYSTEM: The patient is alert, awake and oriented x3. Nonfocal neuro examination. Cranial nerves II through XII grossly intact. Sensory and motor system within limits. EXTREMITIES: No cyanosis, no clubbing. The patient has trace to 1+ edema in both lower extremities. His I's and O's in the last 24 hours, intake is 1365 and output is 3210. LABORATORY DATA: Include as follows: As of 12/30/2018, WBC 8.1, hemoglobin 11.8, hematocrit is 36.5, MCV 78 and platelets 175. Sodium 135, potassium 3.6, chloride 99, CO2 of 31, BUN 21, creatinine 1.4, glucose 105, GFR 52 mL, calcium 8.9, phosphorus 2.9, magnesium 2.6. Total bili 0.8, AST 45, ALT 24, alkaline phos 99, total protein 7, albumin 3.5. ASSESSMENT AND PLAN: In summary, Mr. Phelps is a 58-year-old elderly, obese male with a history of hypertension; diabetes; coronary artery disease, status post coronary artery bypass graft with stents; severe aortic regurgitation; admitted with shortness of breath, bilateral leg swelling and edema, increased blood urea nitrogen and creatinine. 1. Chronic kidney disease III, most likely secondary to hypertensive nephrosclerosis, cannot rule out underlying diabetic nephropathy. 2. Congestive heart failure. 3. Severe aortic regurgitation. 4. Edema secondary to fluid overload and congestive heart failure, which is improving nicely with Lasix. Continue his current medications; Breo Ellipta, losartan on hold, Crestor 10 mg, Cymbalta 60 mg and also subcu heparin 5000 units every 8 hours, Januvia, K-Dur 20 mEq p.o. daily, Lasix 40 mg IV b.i.d., Neurontin 100 mg p.o. b.i.d., Pepcid 40 mg p.o. daily, Plavix 75 mg daily, metoprolol 12.5 mg p.o. daily and Ventolin. We will follow with you. Thank you for allowing me to participate in your patient's care. Annmarie Nixon MD
[2018-12-31] MEDS: Ciprofloxacin 0.3% OPTH SOLN OU SCH ×2 (03:41→09:43)
[2018-12-31] MEDS: Fluticasone-Vilanterol 100/25mcg Diskus INH SCH (07:35)
[2018-12-31 07:36] LABS: BASO # 0.1 K/uL (0.0-0.2); BASO % 0.7 % (0.0-2.0); EOS # 0.2 K/uL (0.0-0.7); HEMOGLOBIN 11.6 g/dL (12.0-18.0); LYMPH # 2.1 K/uL (1.0-4.3); LYMPH % 24.2 % (20.0-40.0); MEAN CELL VOLUME 78.4 fL (80.0-94.0); MEAN CORPUSCULAR HEMOGLOBIN 25.2 pg (27.0-31.0); MEAN CORPUSCULAR HGB CONC 32.2 g/dL (33.0-37.0); MEAN PLATELET VOLUME 8.5 fL (7.2-11.7); MONO # 0.9 K/uL (0.0-0.8); MONO % 10.4 % (0.0-10.0); NEUT # 5.5 K/uL (1.8-7.0); NEUT % 62.7 % (50.0-75.0); NRBC % 0.1 % (0.0-2.0); RBC 4.61 Mil/uL (4.40-5.90); RED CELL DISTRIBUTION WIDTH 19.3 % (11.5-14.5); WHITE BLOOD COUNT 8.7 K/uL (4.8-10.8)
[2018-12-31 08:03] LABS: ALBUMIN 3.4 g/dL (3.5-5.0); ALT/SGPT 22 U/L (21-72); AST/SGOT 42 U/L (17-59); BLOOD UREA NITROGEN 26 mg/dL (9-20); CALCIUM 8.8 mg/dl (8.6-10.4); GFR NON-AFRICAN AMERICAN > 60
[2018-12-31] MEDS: (Novolog) Insulin Aspart, Recombinant 100 u/ml 10 ml vial SC SCH ×4 (08:34→21:59)
[2018-12-31] MEDS: Potassium Chloride 20 mEq ER Tab PO SCH (09:42)
[2018-12-31] MEDS: PrednisoLONE 1% Opht Susp(5 ml) OU SCH (09:42)
[2018-12-31] MEDS: Nystatin 100,000 Units/ml Oral Susp 5 ml UD PO SCH ×5 (09:42→22:01)
[2018-12-31] MEDS: Metoprolol Succinate 12.5 mg XL Tab PO SCH (09:47)
[2018-12-31 10:23] LABS: B-TYPE NATRIURETIC PEPTIDE 2010 pg/mL (0-900)
--- NOTE | 2018-12-31 10:45 | CP.PCM.PN ---
<Erica Stevenson V - Last Filed: 12/31/18 18:20> Objective - Vital Signs/Intake and Output Vital Signs (last 24 hours): Temp Pulse Resp BP Pulse Ox 97.9 F 75 20 127/76 99 12/31/18 16:30 12/31/18 16:32 12/31/18 16:30 12/31/18 17:21 12/31/18 16:30 Intake and Output: 12/31/18 12/31/18 06:59 18:59 Intake Total 340 Output Total 1000 Balance -660 - Medications Medications: Current Medications Albuterol (Ventolin Hfa 90 Mcg/Actuation (8 G)) 2 puff IH RQ6 PRN PRN Reason: Shortness of Breath Last Admin: 12/29/18 08:39 Dose: 2 puff Aspirin (Ecotrin) 81 mg PO DAILY [facility] Last Admin: 12/31/18 09:42 Dose: 81 mg Clopidogrel Bisulfate (Plavix) 75 mg PO DAILY [facility] Last Admin: 12/31/18 09:42 Dose: 75 mg Dextrose (Dextrose 50% Inj) 0 ml IV STAT PRN; Protocol PRN Reason: Hypoglycemia Protocol Dextrose (Glutose 15) 0 gm PO ONCE PRN; Protocol PRN Reason: Hypoglycemia Protocol Duloxetine HCl (Cymbalta) 60 mg PO DAILY [facility] Last Admin: 12/31/18 09:42 Dose: 60 mg Famotidine (Pepcid) 40 mg PO DAILY [facility] Last Admin: 12/31/18 09:42 Dose: 40 mg Fluticasone/Vilanterol (Breo Ellipta 100-25 Mcg Inh) 1 puff INH RQD [facility] Last Admin: 12/31/18 07:35 Dose: 1 puff Furosemide (Lasix) 40 mg IVP BID [facility] Last Admin: 12/31/18 17:21 Dose: 40 mg Gabapentin (Neurontin) 100 mg PO BID [facility] Last Admin: 12/31/18 17:21 Dose: 100 mg Glucagon (Glucagen Diagnostic Kit) 0 mg IM STAT PRN; Protocol PRN Reason: Hypoglycemia Protocol Heparin Sodium (Porcine) (Heparin) 5,000 units SC Q8 [facility] Last Admin: 12/31/18 13:33 Dose: 5,000 units Insulin Aspart (Novolog) 0 unit SC ACHS [facility]; Protocol Last Admin: 12/31/18 17:12 Dose: Not Given Losartan Potassium (Cozaar) 25 mg PO DAILY [facility] Last Admin: 12/27/18 14:02 Dose: Not Given Metoprolol Succinate (Toprol Xl) 12.5 mg PO DAILY [facility] Last Admin: 12/31/18 09:47 Dose: 12.5 mg Nystatin (Nystatin Oral Susp) 5 ml PO QID [facility] Last Admin: 12/31/18 17:21 Dose: 5 ml Potassium Chloride (K-Dur 20 Meq Er Tab) 20 meq PO DAILY [facility] Last Admin: 12/31/18 09:42 Dose: 20 meq Rosuvastatin Calcium (Crestor) 10 mg PO HS [facility] Last Admin: 12/30/18 21:23 Dose: 10 mg Sitagliptin Phosphate (Januvia) 100 mg PO DAILY [facility] Last Admin: 12/31/18 09:42 Dose: 100 mg - Labs Labs: 12/31/18 07:22 12/31/18 07:22 PT 16.8 SECONDS (9.7-12.2) H 12/25/18 16:43 INR 1.5 12/25/18 16:43 APTT 43 SECONDS (21-34) H 12/25/18 16:43 Attending/Attestation - Attestation I have personally seen and examined this patient.: Yes I have fully participated in the care of the patient.: Yes I have reviewed all pertinent clinical information, including history, physical exam and plan: Yes Notes (Text): Patient seen, examined, case discussed with medical safety director. Patient seen on the fifth floor. Patient reports he is doing better. Patient reports shortness of breath is improving. Patient had spent switched over from Lasix drip to Lasix 40 mg IV twice a day. We did repeat proBNP which shows that it is decreasing compared to on admission. We did speak with cardiology that reports patient still continues to need Lasix prior to possible discharge planning will attempt to discharge tomorrow. We spoke with patient using the [employer]ometh[employer] petroleum supply specialist system neuropathy did advise him again that he needs to do proper fluid restriction in light of his heart failure as well as proper dietary measures to control his diabetes and heart health otherwise. Assessment/plan 1.Acute exacerbation of Diastolic congestive heart failure (HFpEF) Severe aortic regurgitation Acute on chronic kidney disease Fluid overload Assessment/plan * Cardiology on board help appreciated * Nephrology on board help appreciated * BNP 6980 improved to 2009 * Daily weights and intake output and fluid restriction * Pending official read on echocardiogram from December 28, 2018 * Aspirin 81 mg once a day * Plavix 75 mg once a day * Lasix 40 mg IV daily twice daily * Potassium supplement once daily in light of diuresis * Toprol-XL 12.5 mg once a day * Cozaar 50 mg once a day is on hold given renal status * Crestor 10 mg once at night * Physical therapy per December 30 note noted for home with services at least 3-5 times a week for at least 2 weeks post ICU downgraded to telemetry 2. Acute kidney injury, improving Assessment/plan * Nephrology on board help appreciated nephrology has signed off 3. Acute Scleritis, improving Assessment/Plan * Patient has completed 5 days of ciprofloxacin drops 4. Coronary artery disease and Peripheral vascular disease, chronic- s/p CABG and stent Assessment/plan * Cardiology on board * Prior history of CABG * Cardiac cath recently performed on November 29, 2018 noted for successful coronary intervention of the saphenous vein graft to obtuse marginal artery he required 2 drug-eluting stents recommends for Plavix for at least one year as well as to continue aspirin statin beta-valarie and MARY inhibitors for life * Aspirin 81 mg PO daily * Plavix 75 mg PO daily * Crestor 10 mg PO QHS * Cozaar on hold given patient history of chronic renal disease * Toprol-XL 12.5 mg once a day 5. Pulmonary Hypertension 2/2 Asthma and Obstructive Sleep Apnea, chronic Assessment/plan * Pulmonary on board help appreciated * Breo Ellipta 1 puff INH daily * Ventolin 2 puff IH Q6H PRN * Nystatin 5 mL PO QID 6. Type 2 diabetes Mellitus with peripheral neuropathy, chronic Assessment/plan * A1c 6.7 * Accuchecks ACHS * Hypoglycemia protocol * ISS medium * Januvia 100 mg PO daily * Neurontin 100 mg PO BID * Cymbalta 60 mg PO daily 7. Hypertension, chronic * Toprol-XL 12.5 mg once a day * Cozaar on hold given renal status * Fluid restriction * Lasix 40 mg IV twice a day 8. Prophylactic measure * VTE: SCDs contraindicated due to LE edema, Heparin 5000 units SC Q8H * GI: Pepcid 40 mg PO daily * Diet: Heart healthy, 1.2 L restriction Disposition: Continue diuresis to offload fluid overload secondary to both heart failure and severe aortic regurgitation as well as recovery from acute on chronic renal disease pending cardiac clearance plan for hopeful discharge tomorrow. <Rosalie Veliz - Last Filed: 12/31/18 20:02> Subjective - Date & Time of Evaluation Date of Evaluation: 12/31/18 Time of Evaluation: 09:45 - Subjective Subjective: PGY-1 Rosalie Veliz D.O. Medicine progress note for Dr. Stevenson's service: Patient was seen and examined this morning. He is sitting up in bed. he says he continues to feel better. he is walking and not getting short of breath. His legs hurt but edema is improving. Discussed fluid restriction and appropriate diet for medical conditions using translation device. Objective - Vital Signs/Intake and Output Vital Signs (last 24 hours): Temp Pulse Resp BP Pulse Ox 97.9 F 80 20 133/71 98 12/31/18 07:30 12/31/18 07:30 12/31/18 07:30 12/31/18 09:41 12/31/18 07:30 Intake and Output: 12/31/18 12/31/18 06:59 18:59 Intake Total 340 Output Total 1000 Balance -660 - Medications Medications: Current Medications Albuterol (Ventolin Hfa 90 Mcg/Actuation (8 G)) 2 puff IH RQ6 PRN PRN Reason: Shortness of Breath Last Admin: 12/29/18 08:39 Dose: 2 puff Aspirin (Ecotrin) 81 mg PO DAILY [facility] Last Admin: 12/31/18 09:42 Dose: 81 mg Ciprofloxacin (Ciloxan 0.3% Oph Soln) 2 drop OU Q4 [facility] Last Admin: 12/31/18 09:43 Dose: 2 drop Clopidogrel Bisulfate (Plavix) 75 mg PO DAILY [facility] Last Admin: 12/31/18 09:42 Dose: 75 mg Dextrose (Dextrose 50% Inj) 0 ml IV STAT PRN; Protocol PRN Reason: Hypoglycemia Protocol Dextrose (Glutose 15) 0 gm PO ONCE PRN; Protocol PRN Reason: Hypoglycemia Protocol Duloxetine HCl (Cymbalta) 60 mg PO DAILY [facility] Last Admin: 12/31/18 09:42 Dose: 60 mg Famotidine (Pepcid) 40 mg PO DAILY [facility] Last Admin: 12/31/18 09:42 Dose: 40 mg Fluticasone/Vilanterol (Breo Ellipta 100-25 Mcg Inh) 1 puff INH RQD [facility] Last Admin: 12/31/18 07:35 Dose: 1 puff Furosemide (Lasix) 40 mg IVP BID [facility] Last Admin: 12/31/18 09:41 Dose: 40 mg Gabapentin (Neurontin) 100 mg PO BID [facility] Last Admin: 12/31/18 09:42 Dose: 100 mg Glucagon (Glucagen Diagnostic Kit) 0 mg IM STAT PRN; Protocol PRN Reason: Hypoglycemia Protocol Heparin Sodium (Porcine) (Heparin) 5,000 units SC Q8 [facility] Last Admin: 12/31/18 05:09 Dose: 5,000 units Insulin Aspart (Novolog) 0 unit SC ACHS [facility]; Protocol Last Admin: 12/31/18 08:34 Dose: Not Given Losartan Potassium (Cozaar) 25 mg PO DAILY [facility] Last Admin: 12/27/18 14:02 Dose: Not Given Metoprolol Succinate (Toprol Xl) 12.5 mg PO DAILY [facility] Last Admin: 12/31/18 09:47 Dose: 12.5 mg Nystatin (Nystatin Oral Susp) 5 ml PO QID [facility] Last Admin: 12/31/18 09:42 Dose: 5 ml Potassium Chloride (K-Dur 20 Meq Er Tab) 20 meq PO DAILY [facility] Last Admin: 12/31/18 09:42 Dose: 20 meq Prednisolone Acetate (Pred Forte 1% Opht Susp) 0 ml OU QID [facility] Last Admin: 12/31/18 09:42 Dose: 1 drop Rosuvastatin Calcium (Crestor) 10 mg PO HS [facility] Last Admin: 12/30/18 21:23 Dose: 10 mg Sitagliptin Phosphate (Januvia) 100 mg PO DAILY [facility] Last Admin: 12/31/18 09:42 Dose: 100 mg - Labs Labs: 12/31/18 07:22 12/31/18 07:22 PT 16.8 SECONDS (9.7-12.2) H 12/25/18 16:43 INR 1.5 12/25/18 16:43 APTT 43 SECONDS (21-34) H 12/25/18 16:43 - Additional Findings Additional findings: - Constitutional Appears: No Acute Distress - Head Exam Head Exam: ATRAUMATIC, NORMAL INSPECTION - Eye Exam Eye Exam: EOMI, Normal appearance - ENT Exam ENT Exam: Mucous Membranes Moist - Respiratory Exam Respiratory Exam: Rales (improved), NORMAL BREATHING PATTERN. absent: Respiratory Distress - Cardiovascular Exam Cardiovascular Exam: RRR, +S1, +S2 - GI/Abdominal Exam GI & Abdominal Exam: Soft. absent: Tenderness - Extremities Exam Extremities Exam: Pedal Edema (1+ bilateral ankles). absent: Tenderness - Neurological Exam Neurological Exam: Alert, Awake, CN II-XII Intact, Oriented x3 - Psychiatric Exam Psychiatric exam: Normal Affect, Normal Mood - Skin Skin Exam: Dry, Normal Color, Warm Assessment and Plan - Assessment and Plan (Free Text) Assessment: 58 yo male with CHF, asthma, GASTON, gastritis, CAD s/p CABG and stent, T2DM with neuropathy, and PAD/PVD admitted for CHF exacerbation. Patient initially unable to be managed on the floors and required ICU for Lasix drip x2 days. He is now on BID Lasix and downgraded to telemetry. He is clinically much improved and will likely be ready for discharge tomorrow. Cardiology would like to clinically optimize. Plan: Acute exacerbation of Diastolic congestive heart failure (HFpEF) - BNP 6980--> 2010 - Trop negative - CXR on admission: pulmonary vascular congestion, L pleural effusion - Repeat CXR: no active disease, no significant pleural effusions - Echo: severe diastolic HF - Pending final read - BiPAP, NC PRN- patient no longer requiring supplemental O2 - Strict I's & O's - Daily weights - 1.2 L fluid restriction - Cozaar 25 mg PO daily on HOLD due to MATTHEW - Metoprolol 12.5 mg PO daily - Lasix 40 mg IV BID - KCl 20 mEq daily - Cardiology consulted (Yuriy) - PT- rec home with services Acute kidney injury, improving - BUN/Cr on admission 35/1.3--> 33/1.7--> 26/1.1 - Nephrology consulted (Tiffani)- continue Lasix, KCl replacement, fluid restriction Coronary artery disease and Peripheral vascular disease, chronic- s/p CABG and stent - Aspirin 81 mg PO daily - Plavix 75 mg PO daily - Crestor 10 mg PO QHS Pulmonary Hypertension 2/2 Asthma and Obstructive Sleep Apnea, chronic - Breo Ellipta 1 puff INH daily - Ventolin 2 puff IH Q6H PRN - Nystatin 5 mL PO QID - Pulmonology consulted (Delphine) Type 2 diabetes Mellitus with peripheral neuropathy, chronic - A1c 6.7 - Accuchecks ACHS - BG range 100-210 - Hypoglycemia protocol - ISS medium - Januvia 100 mg PO daily - Neurontin 100 mg PO BID - Cymbalta 60 mg PO daily Hypertension, chronic - Vitals Q6H - Cozaar 25 mg PO daily on HOLD due to MATTHEW - Metoprolol 12.5 mg PO daily - Lasix 40 mg IV BID Acute Scleritis, resolved - Discontinue Pred Forte drops OU QID - Discontinue Cipro drops OU BID - Ophthalmology consulted (Steffi) Ppx: VTE: SCDs contraindicated due to LE edema, Heparin 5000 units SC Q8H GI: Pepcid 40 mg PO daily Diet: Heart healthy, 1.2 L restriction Case discussed with attending, Dr. Stevenson.
--- NOTE | 2018-12-31 14:30 | CP.PCM.PN ---
Subjective - Date & Time of Evaluation Date of Evaluation: 12/31/18 Time of Evaluation: 14:29 - Subjective Subjective: pt is seen and examined, follow up consult is dictated #[id number] edema is improving, renal function improved will sign off the case Objective - Vital Signs/Intake and Output Vital Signs (last 24 hours): Temp Pulse Resp BP Pulse Ox 97.9 F 89 20 133/71 98 12/31/18 07:30 12/31/18 09:00 12/31/18 07:30 12/31/18 09:41 12/31/18 07:30 Intake and Output: 12/31/18 12/31/18 06:59 18:59 Intake Total 340 Output Total 1000 Balance -660 - Medications Medications: Current Medications Albuterol (Ventolin Hfa 90 Mcg/Actuation (8 G)) 2 puff IH RQ6 PRN PRN Reason: Shortness of Breath Last Admin: 12/29/18 08:39 Dose: 2 puff Aspirin (Ecotrin) 81 mg PO DAILY [facility] Last Admin: 12/31/18 09:42 Dose: 81 mg Clopidogrel Bisulfate (Plavix) 75 mg PO DAILY [facility] Last Admin: 12/31/18 09:42 Dose: 75 mg Dextrose (Dextrose 50% Inj) 0 ml IV STAT PRN; Protocol PRN Reason: Hypoglycemia Protocol Dextrose (Glutose 15) 0 gm PO ONCE PRN; Protocol PRN Reason: Hypoglycemia Protocol Duloxetine HCl (Cymbalta) 60 mg PO DAILY [facility] Last Admin: 12/31/18 09:42 Dose: 60 mg Famotidine (Pepcid) 40 mg PO DAILY [facility] Last Admin: 12/31/18 09:42 Dose: 40 mg Fluticasone/Vilanterol (Breo Ellipta 100-25 Mcg Inh) 1 puff INH RQD [facility] Last Admin: 12/31/18 07:35 Dose: 1 puff Furosemide (Lasix) 40 mg IVP BID [facility] Last Admin: 12/31/18 09:41 Dose: 40 mg Gabapentin (Neurontin) 100 mg PO BID [facility] Last Admin: 12/31/18 09:42 Dose: 100 mg Glucagon (Glucagen Diagnostic Kit) 0 mg IM STAT PRN; Protocol PRN Reason: Hypoglycemia Protocol Heparin Sodium (Porcine) (Heparin) 5,000 units SC Q8 [facility] Last Admin: 03/24/19 13:33 Dose: 5,000 units Insulin Aspart (Novolog) 0 unit SC ACHS [facility]; Protocol Last Admin: 12/31/18 13:33 Dose: 3 unit Losartan Potassium (Cozaar) 25 mg PO DAILY [facility] Last Admin: 12/27/18 14:02 Dose: Not Given Metoprolol Succinate (Toprol Xl) 12.5 mg PO DAILY [facility] Last Admin: 12/31/18 09:47 Dose: 12.5 mg Nystatin (Nystatin Oral Susp) 5 ml PO QID [facility] Last Admin: 12/31/18 13:32 Dose: 5 ml Potassium Chloride (K-Dur 20 Meq Er Tab) 20 meq PO DAILY [facility] Last Admin: 12/31/18 09:42 Dose: 20 meq Rosuvastatin Calcium (Crestor) 10 mg PO HS [facility] Last Admin: 12/30/18 21:23 Dose: 10 mg Sitagliptin Phosphate (Januvia) 100 mg PO DAILY [facility] Last Admin: 12/31/18 09:42 Dose: 100 mg - Labs Labs: 12/31/18 07:22 12/31/18 07:22 PT 16.8 SECONDS (9.7-12.2) H 12/25/18 16:43 INR 1.5 12/25/18 16:43 APTT 43 SECONDS (21-34) H 12/25/18 16:43
[2018-12-31 16:31] VITALS: O2SAT 99
--- NOTE | 2018-12-31 16:49 | CP.PCM.PN ---
Subjective - Date & Time of Evaluation Date of Evaluation: 12/31/18 Time of Evaluation: 16:49 Objective - Vital Signs/Intake and Output Vital Signs (last 24 hours): Temp Pulse Resp BP Pulse Ox 97.9 F 75 20 125/73 99 12/31/18 16:30 12/31/18 16:32 12/31/18 16:30 12/31/18 16:30 12/31/18 16:30 Intake and Output: 12/31/18 12/31/18 06:59 18:59 Intake Total 340 Output Total 1000 Balance -660 - Medications Medications: Current Medications Albuterol (Ventolin Hfa 90 Mcg/Actuation (8 G)) 2 puff IH RQ6 PRN PRN Reason: Shortness of Breath Last Admin: 12/29/18 08:39 Dose: 2 puff Aspirin (Ecotrin) 81 mg PO DAILY [facility] Last Admin: 12/31/18 09:42 Dose: 81 mg Clopidogrel Bisulfate (Plavix) 75 mg PO DAILY [facility] Last Admin: 12/31/18 09:42 Dose: 75 mg Dextrose (Dextrose 50% Inj) 0 ml IV STAT PRN; Protocol PRN Reason: Hypoglycemia Protocol Dextrose (Glutose 15) 0 gm PO ONCE PRN; Protocol PRN Reason: Hypoglycemia Protocol Duloxetine HCl (Cymbalta) 60 mg PO DAILY [facility] Last Admin: 12/31/18 09:42 Dose: 60 mg Famotidine (Pepcid) 40 mg PO DAILY [facility] Last Admin: 12/31/18 09:42 Dose: 40 mg Fluticasone/Vilanterol (Breo Ellipta 100-25 Mcg Inh) 1 puff INH RQD [facility] Last Admin: 12/31/18 07:35 Dose: 1 puff Furosemide (Lasix) 40 mg IVP BID [facility] Last Admin: 12/31/18 09:41 Dose: 40 mg Gabapentin (Neurontin) 100 mg PO BID [facility] Last Admin: 12/31/18 09:42 Dose: 100 mg Glucagon (Glucagen Diagnostic Kit) 0 mg IM STAT PRN; Protocol PRN Reason: Hypoglycemia Protocol Heparin Sodium (Porcine) (Heparin) 5,000 units SC Q8 [facility] Last Admin: 12/31/18 13:33 Dose: 5,000 units Insulin Aspart (Novolog) 0 unit SC ACHS [facility]; Protocol Last Admin: 12/31/18 13:33 Dose: 3 unit Losartan Potassium (Cozaar) 25 mg PO DAILY [facility] Last Admin: 12/27/18 14:02 Dose: Not Given Metoprolol Succinate (Toprol Xl) 12.5 mg PO DAILY [facility] Last Admin: 12/31/18 09:47 Dose: 12.5 mg Nystatin (Nystatin Oral Susp) 5 ml PO QID [facility] Last Admin: 12/31/18 13:32 Dose: 5 ml Potassium Chloride (K-Dur 20 Meq Er Tab) 20 meq PO DAILY [facility] Last Admin: 12/31/18 09:42 Dose: 20 meq Rosuvastatin Calcium (Crestor) 10 mg PO HS [facility] Last Admin: 12/30/18 21:23 Dose: 10 mg Sitagliptin Phosphate (Januvia) 100 mg PO DAILY [facility] Last Admin: 12/31/18 09:42 Dose: 100 mg - Labs Labs: 12/31/18 07:22 12/31/18 07:22 PT 16.8 SECONDS (9.7-12.2) H 12/25/18 16:43 INR 1.5 12/25/18 16:43 APTT 43 SECONDS (21-34) H 12/25/18 16:43 Assessment and Plan (1) Conjunctivitis Status: Acute (2) Chronic congestive heart failure Status: Acute (3) Asthma Status: Acute (4) Dyspnea Status: Acute (5) Oral candidiasis Status: Acute
--- NOTE | 2018-12-31 22:25 | CP.PCM.PN ---
Subjective - Date & Time of Evaluation Date of Evaluation: 12/31/18 Time of Evaluation: 09:40 - Subjective Subjective: Patient with improved breathing Diastolic CHF Aortic insufficiency CAD s/p CABG continue Lasix Objective - Vital Signs/Intake and Output Vital Signs (last 24 hours): Temp Pulse Resp BP Pulse Ox 97.9 F 75 20 127/76 99 12/31/18 16:30 12/31/18 16:32 12/31/18 16:30 12/31/18 17:21 12/31/18 16:30 - Medications Medications: Current Medications Albuterol (Ventolin Hfa 90 Mcg/Actuation (8 G)) 2 puff IH RQ6 PRN PRN Reason: Shortness of Breath Last Admin: 12/29/18 08:39 Dose: 2 puff Aspirin (Ecotrin) [address] [facility] Last Admin: 12/31/18 09:42 Dose: 81 mg Clopidogrel Bisulfate (Plavix) [address] [facility] Last Admin: 12/31/18 09:42 Dose: 75 mg Dextrose (Dextrose 50% Inj) 0 ml IV STAT PRN; Protocol PRN Reason: Hypoglycemia Protocol Dextrose (Glutose 15) 0 gm PO ONCE PRN; Protocol PRN Reason: Hypoglycemia Protocol Duloxetine HCl (Cymbalta) [address] [facility] Last Admin: 12/31/18 09:42 Dose: 60 mg Famotidine (Pepcid) [address] [facility] Last Admin: 12/31/18 09:42 Dose: 40 mg Fluticasone/Vilanterol (Breo Ellipta 100-25 Mcg Inh) [address] [facility] Last Admin: 12/31/18 07:35 Dose: 1 puff Furosemide (Lasix) [address] [facility] Last Admin: 12/31/18 17:21 Dose: 40 mg Gabapentin (Neurontin) [address] [facility] Last Admin: 12/31/18 17:21 Dose: 100 mg Glucagon (Glucagen Diagnostic Kit) 0 mg IM STAT PRN; Protocol PRN Reason: Hypoglycemia Protocol Heparin Sodium (Porcine) (Heparin) 5,[address] [facility] Last Admin: 12/31/18 22:00 Dose: 5,000 units Insulin Aspart (Novolog) [address] [facility]; Protocol Last Admin: 12/31/18 21:59 Dose: Not Given Losartan Potassium (Cozaar) [address] [facility] Last Admin: 12/27/18 14:02 Dose: Not Given Metoprolol Succinate (Toprol Xl) 12.[address] [facility] Last Admin: 12/31/18 09:47 Dose: 12.5 mg Nystatin (Nystatin Oral Susp) [address] [facility] Last Admin: 12/31/18 22:01 Dose: Not Given Potassium Chloride (K-Dur 20 Meq Er Tab) [address] [facility] Last Admin: 12/31/18 09:42 Dose: 20 meq Rosuvastatin Calcium (Crestor) [address] [facility] Last Admin: 12/31/18 22:00 Dose: 10 mg Sitagliptin Phosphate (Januvia) [address] [facility] Last Admin: 12/31/18 09:42 Dose: 100 mg - Labs Labs: 12/31/18 07:22 12/31/18 07:22 PT 16.8 SECONDS (9.7-12.2) H 12/25/18 16:43 INR 1.5 12/25/18 16:43 APTT 43 SECONDS (21-34) H 12/25/18 16:43
--- NOTE | 2019-01-01 02:27 | PN ---
DATE: 12/31/2018 FOLLOWUP RENAL CONSULTATION LOCATION: The patient is located in [facility], [address], [address]. REQUESTED BY: . SUBJECTIVE: Mr. Phelps is a 58-year-old elderly, obese male with a history of longstanding hypertension; diabetes; hyperlipidemia; coronary artery disease, status post CABG, status post stents; was admitted with shortness of breath and bilateral leg swelling and also edema of the upper extremities with congestive heart failure. The patient was initially started on IV Lasix with improvement in the fluid status. Subsequently, the patient was transferred to ICU for IV Lasix drip. The patient is feeling much better, not in distress, transferred back to medical floor. No chest pain. No palpitation. No fever. No cough. No abdominal pain. No nausea, vomiting or diarrhea. The patient is ambulating. No edema of the legs. PHYSICAL EXAMINATION: VITAL SIGNS: Blood pressure 133/71, pulse 89, respirations 20, temperature 97.9, saturation 99%. Height 5 feet 5 inches, weight is 164 pounds. GENERAL: Mr. Phelps is a 58-year-old elderly male, moderately built, moderately nourished, not in distress. HEENT: Pupils are normal and reactive to light and accommodation. Conjunctivae pink. Sclerae anicteric. Tongue is moist. NECK: Trachea is midline. LUNGS: Symmetric on both sides. Bilateral breath sounds present, clear to auscultation. CARDIOVASCULAR SYSTEM: [place] at the fifth intercostal space, midclavicular line. S1 and S2 audible. No murmur. No gallop. ABDOMEN: Normal in appearance, soft, tympanitic. No guarding. No rigidity. No hepatosplenomegaly. CENTRAL NERVOUS SYSTEM: The patient is alert, awake and oriented x3. Nonfocal neuro examination. Cranial nerves II through XII grossly intact. Sensory and motor system is within normal limits. EXTREMITIES: No cyanosis, no clubbing, no edema. MEDICATIONS: His current medications include as follows: Breo Ellipta, losartan on hold, Crestor 10 mg p.o. at bedtime, Cymbalta 60 mg p.o. daily, aspirin 81 mg daily, subcu heparin 5000 units every 8 hours, Januvia 100 mg p.o. daily, K-Dur 20 mEq p.o. daily, Lasix 40 mg IV b.i.d., Neurontin 100 mg p.o. b.i.d., nystatin 5 mL p.o. four times daily, Pepcid 40 mg p.o. daily, Plavix 75 mg daily, metoprolol 12.5 mg daily, Ventolin inhaler two puffs every 6 hours p.r.n. LABORATORY DATA: Include as follows: As of 12/31/2018, WBC 8.7, hemoglobin 11.6, hematocrit 36.2, platelets 172. Sodium 133, potassium 3.6, chloride 98, CO2 of 30, BUN 26, creatinine 1.1, glucose 101, calcium 8.8, phosphorus 2.9, magnesium 2.6. Total bili 0.8, AST 42, ALT 22, alkaline phosphatase 96. ProBNP 2010. Total protein 6.9, albumin 3.9. ASSESSMENT AND PLAN: In summary, Mr. Phelps is a 58-year-old elderly male with a history of hypertension; diabetes; hyperlipidemia; coronary artery disease, status post coronary artery bypass graft, multiple stents and also severe aortic regurgitation, was admitted with shortness of breath and bilateral upper and lower extremity swelling, on Lasix intravenously, subsequently changed to intravenous Lasix drip and then switched back to intravenous Lasix. 1. Acute renal failure on chronic kidney disease. Renal function improved back to his baseline. 2. Congestive heart failure, improved markedly. Continue Lasix 40 mg b.i.d. and titrate as needed. 3. Metabolic alkalosis secondary to diuretics and contraction alkalosis. 4. Diabetes. Adjust Lasix as needed. We will follow with you. Thank you for allowing me to participate in your patient's care. Annmarie Nixon MD
[2019-01-01 07:50] LABS: ALBUMIN 3.4 g/dL (3.5-5.0); ALT/SGPT 25 U/L (21-72); AST/SGOT 37 U/L (17-59); BLOOD UREA NITROGEN 25 mg/dL (9-20); CALCIUM 8.9 mg/dl (8.6-10.4); GFR NON-AFRICAN AMERICAN > 60
[2019-01-01 07:52] LABS: BASO # 0.1 K/uL (0.0-0.2); BASO % 0.7 % (0.0-2.0); EOS # 0.2 K/uL (0.0-0.7); EOS % 2.1 % (0.0-4.0); HEMOGLOBIN 11.6 g/dL (12.0-18.0); LYMPH % 24.6 % (20.0-40.0); MEAN CELL VOLUME 78.4 fL (80.0-94.0); MEAN CORPUSCULAR HGB CONC 31.9 g/dL (33.0-37.0); MEAN PLATELET VOLUME 8.6 fL (7.2-11.7); MONO # 0.8 K/uL (0.0-0.8); MONO % 9.9 % (0.0-10.0); NEUT # 5.2 K/uL (1.8-7.0); NEUT % 62.7 % (50.0-75.0); NRBC % 0.1 % (0.0-2.0); RBC 4.65 Mil/uL (4.40-5.90); RED CELL DISTRIBUTION WIDTH 19.2 % (11.5-14.5); WHITE BLOOD COUNT 8.3 K/uL (4.8-10.8)
[2019-01-01 08:04] LABS: B-TYPE NATRIURETIC PEPTIDE 2020 pg/mL (0-900)
--- NOTE | 2019-01-01 08:10 | CP.PCM.DIS ---
<Rosalie Veliz - Last Filed: 01/01/19 12:47> Provider - Provider Date of Admission: 12/25/18 17:38 Attending physician: Erica Stevenson DO Primary care physician: uJlia Phelps Consults: 12/25/18 19:20 Cardiology Consult Routine Comment: Consulting Provider: Rikki Yan Consulting Physician: Rikki Yan Reason for Consult: recent stent, CHF exa 12/25/18 19:39 Physician Consult Routine Comment: Consulting Provider: Erika Akers Consulting Physician: Erika Akers Reason for Consult: sob,pulmonary hypertension 12/25/18 19:40 Physician Consult Routine Comment: Consulting Provider: Annmarie Nixon Consulting Physician: Annmarie Nixon Reason for Consult: Renal insuffciency 12/28/18 14:38 Critical Care Consult Routine Comment: Consulting Provider: Daniele Peck Consulting Physician: Daniele Peck Reason for Consult: lasix drip @ 5 Time Spent in preparation of Discharge (in minutes): 45 Diagnosis - Discharge Diagnosis (1) Acute exacerbation of CHF (congestive heart failure) Status: Resolved Priority: High (2) MATTHEW (acute kidney injury) Status: Resolved Priority: High (3) CAD (coronary artery disease) Status: Chronic Priority: Medium (4) PVD (peripheral vascular disease) Status: Chronic Priority: Medium (5) Scleritis Status: Acute Priority: Low (6) Hypertension Status: Chronic Priority: Medium (7) T2DM (type 2 diabetes mellitus) Status: Chronic Priority: Medium (8) GASTON (obstructive sleep apnea) Status: Chronic Priority: Low (9) Asthma Status: Chronic Priority: Low (10) Pulmonary hypertension Status: Chronic Priority: Low Hospital Course - Lab Results Lab Results: Micro Results 12/28/18 06:35 Naris MRSA Culture (Admit) - Final MRSA NOT DETECTED Most Recent Lab Values WBC 8.3 K/uL (4.8-10.8) 01/01/19 07:15 RBC 4.65 Mil/uL (4.40-5.90) 01/01/19 07:15 Hgb 11.6 g/dL (12.0-18.0) L 01/01/19 07:15 Hct 36.4 % (35.0-51.0) 01/01/19 07:15 MCV 78.4 fL (80.0-94.0) L 01/01/19 07:15 MCH 25.0 pg (27.0-31.0) L 01/01/19 07:15 MCHC 31.9 g/dL (33.0-37.0) L 01/01/19 07:15 RDW 19.2 % (11.5-14.5) H 01/01/19 07:15 Plt Count 164 K/uL (130-400) 01/01/19 07:15 MPV 8.6 fL (7.2-11.7) 01/01/19 07:15 Neut % (Auto) 62.7 % (50.0-75.0) 01/01/19 07:15 Lymph % (Auto) 24.6 % (20.0-40.0) 01/01/19 07:15 Bond % (Auto) 9.9 % (0.0-10.0) 01/01/19 07:15 Eos % (Auto) 2.1 % (0.0-4.0) 01/01/19 07:15 Baso % (Auto) 0.7 % (0.0-2.0) 01/01/19 07:15 Neut # (Auto) 5.2 K/uL (1.8-7.0) 01/01/19 07:15 Lymph # (Auto) 2.0 K/uL (1.0-4.3) 01/01/19 07:15 Bond # (Auto) 0.8 K/uL (0.0-0.8) 01/01/19 07:15 Eos # (Auto) 0.2 K/uL (0.0-0.7) 01/01/19 07:15 Baso # (Auto) 0.1 K/uL (0.0-0.2) 01/01/19 07:15 Neutrophils % (Manual) 85 % (50-75) H 12/25/18 16:43 Band Neutrophils % 3 % (0-2) H 12/25/18 16:43 Lymphocytes % (Manual) 5 % (20-40) L 12/25/18 16:43 Monocytes % (Manual) 7 % (0-10) 12/25/18 16:43 Hypersegmented Polys Present 12/25/18 16:43 Smudge Cells Present 12/25/18 16:43 Toxic Granulation Present 12/25/18 16:43 Platelet Estimate Normal (NORMAL) 12/25/18 16:43 Large Platelets Present 12/25/18 16:43 Polychromasia Slight 12/25/18 16:43 Poikilocytosis (manual Slight 12/25/18 16:43 Anisocytosis (manual) Slight 12/25/18 16:43 Ovalocytes Slight 12/25/18 16:43 PT 16.8 SECONDS (9.7-12.2) H 12/25/18 16:43 INR 1.5 12/25/18 16:43 APTT 43 SECONDS (21-34) H 12/25/18 16:43 Sodium 132 mmol/L (132-148) 01/01/19 07:15 Potassium 3.7 mmol/L (3.6-5.2) 01/01/19 07:15 Chloride 98 mmol/L (98-107) 01/01/19 07:15 Carbon Dioxide 30 mmol/L (22-30) 01/01/19 07:15 Anion Gap 7 (10-20) L 01/01/19 07:15 BUN 25 mg/dL (9-20) H 01/01/19 07:15 Creatinine 1.0 mg/dL (0.8-1.5) 01/01/19 07:15 Est GFR ( Amer) > 60 01/01/19 07:15 Est GFR (Non-Af Amer) > 60 01/01/19 07:15 POC Glucose (mg/dL) 141 mg/dL (65-110) H 12/31/18 21:08 Random Glucose 95 mg/dL (75-110) 01/01/19 07:15 Hemoglobin A1c 6.7 % (4.2-6.5) H 12/26/18 07:14 Calcium 8.9 mg/dl (8.6-10.4) 01/01/19 07:15 Phosphorus 3.0 mg/dL (2.5-4.5) 01/01/19 07:15 Magnesium 2.6 mg/dL (1.6-2.3) H 01/01/19 07:15 Total Bilirubin 0.7 mg/dL (0.2-1.3) 01/01/19 07:15 AST 37 U/L (17-59) 01/01/19 07:15 ALT 25 U/L (21-72) 01/01/19 07:15 Alkaline Phosphatase 87 U/L (38-126) 01/01/19 07:15 Troponin I 0.0720 ng/mL (0.00-0.120) 12/25/18 16:43 NT-Pro-B Natriuret Pep 2010 pg/mL (0-900) H 12/31/18 07:22 Total Protein 6.7 g/dL (6.3-8.3) 01/01/19 07:15 Albumin 3.4 g/dL (3.5-5.0) L 01/01/19 07:15 Globulin 3.4 gm/dL (2.2-3.9) 01/01/19 07:15 Albumin/Globulin Ratio 1.0 (1.0-2.1) 01/01/19 07:15 Urine Color Yellow (YELLOW) 12/25/18 18:51 Urine Clarity Clear (Clear) 12/25/18 18:51 Urine pH 6.0 (5.0-8.0) 12/25/18 18:51 Ur Specific [place] 1.007 (1.003-1.030) 12/25/18 18:51 Urine Protein Negative mg/dL (NEGATIVE) 12/25/18 18:51 Urine Glucose (UA) 3+ mg/dL (Normal) H 12/25/18 18:51 Urine Ketones Negative mg/dL (NEGATIVE) 12/25/18 18:51 Urine Blood 2+ (NEGATIVE) H 12/25/18 18:51 Urine Nitrate Negative (NEGATIVE) 12/25/18 18:51 Urine Bilirubin Negative (NEGATIVE) 12/25/18 18:51 Urine Urobilinogen Normal mg/dL (0.2-1.0) 12/25/18 18:51 Ur Leukocyte Esterase Neg Kelly/uL (Negative) 12/25/18 18:51 Urine WBC (Auto) 1 /hpf (0-5) 12/25/18 18:51 Urine RBC (Auto) 5 /hpf (0-3) H 12/25/18 18:51 Ur Squamous Epith Cells < 1 /hpf (0-5) 12/25/18 18:51 Urine Bacteria Occ (<OCC) H 12/25/18 18:51 - Hospital Course Hospital Course: Patient is a 58 year old Male with pmhx of CAD with CABG 2003, stent 2010, DM2, PVD, Hyperlipidemia, angina, HTN, gastritis, asthma, GASTON that came to the ED for shortness of breath, chest pain, and LE edema. He describes SOB as dyspnea on exertion after walking for 1/2 a block, having difficulty catching his breath. He denies SOB at rest. It has been worsening over the past 1 week. His lower extremity swelling has worsened over the past week. He admits to dizziness at times, but is inconsistent as to when he has it and only says "sometimes." Denies fever, chills, n/v/d, hematochezia, melena, falls, syncope, blurry vision, headache. Endorses Orthopnea for many years, and uses 1 pillows. He endorses waking up gasping for air multiple times per night is not always compliant with his CPAP. He endorses numbness and tingling of the left hand when he sleeps. He was discharged 3 weeks ago (11/22-11/29) for the same issue. Patient was admitted for acute CHF exacerbation. He was placed on telemetry. Cardiology was consulted. BNP initially was 6980. Echo revealed severe diastolic dysfunction. He was continued on CHF medications. Lasix was increased and given IV. he was still requiring BiPAP, and, therefore, went to the ICU for 2 days fo Lasix drip. He improved and was able to be transitioned back to IV Lasix and downgraded to telemetry. He was seen by physical therapy. He was also found to have acute kidney injury. Nephrology was consulted. BUN and creatinine gradually improved during hospitalization. Pulmonology was consulted for his chronic issues of pulmonary hypertension, GASTON, and asthma. He was continued on medications and CPAP. Patient's blood glucose was monitored ACHS throughout hospitalization for diabetes. It was controlled via insulin sliding scale and Januvia. Patient was continued on Cymbalta and gabapentin for neuropathy. Patient was found to have scleritis. He was seen by ophthalmology and placed on a course of cipro and prednisone eye drops. This improved. Upon discharge, patient was not SOB. He was ambulating without difficulty. His lungs were clear. His leg edema resolved. He was limiting his fluid intake. BNP improved to 2020. He will follow-up with PMD and specialists. Discharge Exam - Head Exam Head Exam: ATRAUMATIC, NORMAL INSPECTION - Eye Exam Eye Exam: EOMI - ENT Exam ENT Exam: Mucous Membranes Moist - Respiratory Exam Respiratory Exam: Clear to PA & Lateral, NORMAL BREATHING PATTERN, UNREMARKABLE - Cardiovascular Exam Cardiovascular Exam: RRR, +S1, +S2 - GI/Abdominal Exam GI & Abdominal Exam: Soft, Unremarkable. absent: Tenderness - Extremities Exam Extremities exam: normal inspection, pedal pulses present - Neurological Exam Neurological exam: Alert, CN II-XII Intact, Normal Gait, Oriented x3 - Psychiatric Exam Psychiatric exam: Normal Affect, Normal Mood - Skin Skin Exam: Dry, Normal Color, Warm Discharge Plan - Discharge Medications Prescriptions: RX: Albuterol HFA [Ventolin HFA 90 mcg/actuation (8 g)] 2 puff IH [id number] PRN #1 inhaler PRN Reason: Shortness Of Breath RX: Aspirin [Ecotrin] 81 mg PO DAILY #30 tabec RX: Atorvastatin [Lipitor] 20 mg PO DAILY #30 tab RX: Canagliflozin [Invokana] 300 mg PO DAILY #30 tablet RX: Clopidogrel [Plavix] 75 mg PO DAILY #30 tab RX: DULoxetine [Cymbalta] 60 mg PO DAILY #30 ecc RX: Famotidine [Pepcid] 40 mg PO DAILY #30 tab RX: Fluticasone/Vilanterol 100/25 [Breo Ellipta 100-25 MCG INH] 1 puff INH RQD #1 pkt Furosemide [Lasix] 20 mg PO BID #60 tablet RX: Gabapentin [Neurontin] 100 mg PO BID #60 cap RX: Losartan [Cozaar] 25 mg PO DAILY #30 tab RX: metFORMIN [glucOPHAGE] 500 mg PO DAILY #30 tab RX: Metoprolol Succinate XL [Toprol XL] 12.5 mg PO DAILY #30 tab RX: Nystatin [Nystatin Oral Susp] 5 ml PO Q6H #420 ml RX: Potassium Chloride 10 meq PO DAILY #30 tab.er.prt PrednisoLONE 1% [Pred Forte 1% Opht Susp] 1 drop OD BID 7 Days #1 bottle RX: SITagliptin [Januvia] 100 mg PO DAILY 30 Days tab - Follow Up Plan Condition: IMPROVED Disposition: HOME/ ROUTINE Patient education suggested?: Yes Instructions: Heart Failure, Adult (DC), Prednisolone (Ophthalmic), Fluid Restricted Diet, Canagliflozin, Albuterol, Aspirin, Atorvastatin, Clopidogrel, Famotidine, Furosemide, How to Use a CPAP or BPAP Machine Additional Instructions: Follow-up with your primary care physician, Dr. Julia Phelps, within 3-5 days of discharge. Follow-up with cardiology, Dr. Yan. Follow-up with pulmonology, Dr. Akers. Follow-up with nephrology, Dr. Nixon. Follow-up with gastroenterology, Dr. Mcgrath. Follow-up with ophthalmology, Dr. Kapadia. Limit your intake of fluids. You should consume less than 1 L per day. Use CPAP at night as instructed. Take all medications as prescribed. If symptoms recur, return to the nearest emergency room. Referrals: Rikki Yan MD [Staff Provider] - Erika Akers MD [Staff Provider] - Annmarie Nixon MD [Staff Provider] - Ailyn Phelps MD [Staff Provider] - Adrián Mcgrath MD [Staff Provider] - Yadiel Kapadia MD [Staff Provider] - Clinical Quality Measures - CQM - Heart Failure Ejection Fraction: 40 % or Greater Left Ventricular Function to be assessed after discharge: Yes MARY Inhibitor Prescribed: No Contraindication/Reason for not providing: ARB Beta-Isidro Prescribed: Metoprolol Succinate Angiotensin II Receptor Isidro Prescribed: No Contraindication/Reason for not providing: not recommended by cardio AnticoagulationTherapy for Atrial Fibrillation/Atrialflutter: No Contraindication/Reason for not providing: no Afib Aldosterone Antagonist Prescribed: No Contraindication/Reason for not providing: not recommended by cardio Hydralazine Nitrate Prescribed: No Contraindication/Reason for not providing: not recommended by cardio Implantable Cardioverter Defibrillator Therapy: No Contraindication/Reason for not providing: EF>35% Cardiac Resynchronization Therapy Prescribed: No Contraindication/Reason for not providing: not indicated Will be discharged to: Home Follow Up Date (must be within 7 days from discharge): 01/05/19 Follow Up Time: 00:00 <Erica Stevenson V - Last Filed: 01/01/19 20:42> Provider - Provider Date of Admission: 12/25/18 17:38 Attending physician: Erica Stevenson DO Consults: 12/25/18 19:20 Cardiology Consult Routine Comment: Consulting Provider: Rikki Yan Consulting Physician: Rikki Yan Reason for Consult: recent stent, CHF exa 12/25/18 19:39 Physician Consult Routine Comment: Consulting Provider: Erika Akers Consulting Physician: Erika Akers Reason for Consult: sob,pulmonary hypertension 12/25/18 19:40 Physician Consult Routine Comment: Consulting Provider: Annmarie Nixon Consulting Physician: Annmarie Nixon Reason for Consult: Renal insuffciency 12/28/18 14:38 Critical Care Consult Routine Comment: Consulting Provider: Daniele Peck Consulting Physician: Daniele Peck Reason for Consult: ivone drebenezer @ 5 Hospital Course - Lab Results Lab Results: Micro Results 12/31/18 06:11 Naris MRSA Culture - Final MRSA NOT DETECTED 12/28/18 06:35 Naris MRSA Culture (Admit) - Final MRSA NOT DETECTED Most Recent Lab Values WBC 8.3 K/uL (4.8-10.8) 01/01/19 07:15 RBC 4.65 Mil/uL (4.40-5.90) 01/01/19 07:15 Hgb 11.6 g/dL (12.0-18.0) L 01/01/19 07:15 Hct 36.4 % (35.0-51.0) 01/01/19 07:15 MCV 78.4 fL (80.0-94.0) L 01/01/19 07:15 MCH 25.0 pg (27.0-31.0) L 01/01/19 07:15 MCHC 31.9 g/dL (33.0-37.0) L 01/01/19 07:15 RDW 19.2 % (11.5-14.5) H 01/01/19 07:15 Plt Count 164 K/uL (130-400) 01/01/19 07:15 MPV 8.6 fL (7.2-11.7) 01/01/19 07:15 Neut % (Auto) 62.7 % (50.0-75.0) 01/01/19 07:15 Lymph % (Auto) 24.6 % (20.0-40.0) 01/01/19 07:15 Bond % (Auto) 9.9 % (0.0-10.0) 01/01/19 07:15 Eos % (Auto) 2.1 % (0.0-4.0) 01/01/19 07:15 Baso % (Auto) 0.7 % (0.0-2.0) 01/01/19 07:15 Neut # (Auto) 5.2 K/uL (1.8-7.0) 01/01/19 07:15 Lymph # (Auto) 2.0 K/uL (1.0-4.3) 01/01/19 07:15 Bond # (Auto) 0.8 K/uL (0.0-0.8) 01/01/19 07:15 Eos # (Auto) 0.2 K/uL (0.0-0.7) 01/01/19 07:15 Baso # (Auto) 0.1 K/uL (0.0-0.2) 01/01/19 07:15 Neutrophils % (Manual) 85 % (50-75) H 12/25/18 16:43 Band Neutrophils % 3 % (0-2) H 12/25/18 16:43 Lymphocytes % (Manual) 5 % (20-40) L 12/25/18 16:43 Monocytes % (Manual) 7 % (0-10) 12/25/18 16:43 Hypersegmented Polys Present 12/25/18 16:43 Smudge Cells Present 12/25/18 16:43 Toxic Granulation Present 12/25/18 16:43 Platelet Estimate Normal (NORMAL) 12/25/18 16:43 Large Platelets Present 12/25/18 16:43 Polychromasia Slight 12/25/18 16:43 Poikilocytosis (manual Slight 12/25/18 16:43 Anisocytosis (manual) Slight 12/25/18 16:43 Ovalocytes Slight 12/25/18 16:43 PT 16.8 SECONDS (9.7-12.2) H 12/25/18 16:43 INR 1.5 12/25/18 16:43 APTT 43 SECONDS (21-34) H 12/25/18 16:43 Sodium 132 mmol/L (132-148) 01/01/19 07:15 Potassium 3.7 mmol/L (3.6-5.2) 01/01/19 07:15 Chloride 98 mmol/L (98-107) 01/01/19 07:15 Carbon Dioxide 30 mmol/L (22-30) 01/01/19 07:15 Anion Gap 7 (10-20) L 01/01/19 07:15 BUN 25 mg/dL (9-20) H 01/01/19 07:15 Creatinine 1.0 mg/dL (0.8-1.5) 01/01/19 07:15 Est GFR ( Amer) > 60 01/01/19 07:15 Est GFR (Non-Af Amer) > 60 01/01/19 07:15 POC Glucose (mg/dL) 141 mg/dL (65-110) H 12/31/18 21:08 Random Glucose 95 mg/dL (75-110) 01/01/19 07:15 Hemoglobin A1c 6.7 % (4.2-6.5) H 12/26/18 07:14 Calcium 8.9 mg/dl (8.6-10.4) 01/01/19 07:15 Phosphorus 3.0 mg/dL (2.5-4.5) 01/01/19 07:15 Magnesium 2.6 mg/dL (1.6-2.3) H 01/01/19 07:15 Total Bilirubin 0.7 mg/dL (0.2-1.3) 01/01/19 07:15 AST 37 U/L (17-59) 01/01/19 07:15 ALT 25 U/L (21-72) 01/01/19 07:15 Alkaline Phosphatase 87 U/L (38-126) 01/01/19 07:15 Troponin I 0.0720 ng/mL (0.00-0.120) 12/25/18 16:43 NT-Pro-B Natriuret Pep 2020 pg/mL (0-900) H 01/01/19 07:15 Total Protein 6.7 g/dL (6.3-8.3) 01/01/19 07:15 Albumin 3.4 g/dL (3.5-5.0) L 01/01/19 07:15 Globulin 3.4 gm/dL (2.2-3.9) 01/01/19 07:15 Albumin/Globulin Ratio 1.0 (1.0-2.1) 01/01/19 07:15 Urine Color Yellow (YELLOW) 12/25/18 18:51 Urine Clarity Clear (Clear) 12/25/18 18:51 Urine pH 6.0 (5.0-8.0) 12/25/18 18:51 Ur Specific [place] 1.007 (1.003-1.030) 12/25/18 18:51 Urine Protein Negative mg/dL (NEGATIVE) 12/25/18 18:51 Urine Glucose (UA) 3+ mg/dL (Normal) H 12/25/18 18:51 Urine Ketones Negative mg/dL (NEGATIVE) 12/25/18 18:51 Urine Blood 2+ (NEGATIVE) H 12/25/18 18:51 Urine Nitrate Negative (NEGATIVE) 12/25/18 18:51 Urine Bilirubin Negative (NEGATIVE) 12/25/18 18:51 Urine Urobilinogen Normal mg/dL (0.2-1.0) 12/25/18 18:51 Ur Leukocyte Esterase Neg Kelly/uL (Negative) 12/25/18 18:51 Urine WBC (Auto) 1 /hpf (0-5) 12/25/18 18:51 Urine RBC (Auto) 5 /hpf (0-3) H 12/25/18 18:51 Ur Squamous Epith Cells < 1 /hpf (0-5) 12/25/18 18:51 Urine Bacteria Occ (<OCC) H 12/25/18 18:51 Attending/Attestation - Attestation I have personally seen and examined this patient.: Yes I have fully participated in the care of the patient.: Yes I have reviewed all pertinent clinical information, including history, physical exam and plan: Yes Notes (Text): Patient seen, examined, case discussed with medical device engineer. Patient seen on the fifth floor. Patient reports he is doing better. Patient reports shortness of breath is improved. Patient medically stable for discharge. Patient to follow-up with cardiology, pulm upon discharge. Patient advised to follow-up with cardio prior to his endoscopy with GI next week. Patient to follow-up with opthamoloist, Dr. Kapadia as office following competion of his predforte drops BID for 7 days (consult is hand written in the chart). Medically stable for discharge. This is a brief summary of patient's hospitalization. Please refer to EMR for full detail of record. Discharge Diagnoses 1.Acute exacerbation of Diastolic congestive heart failure (HFpEF) Severe aortic regurgitation Acute on chronic kidney disease Fluid overload Assessment/plan * Cardiology on board help appreciated * Nephrology on board help appreciated * BNP 6980 improved to 2010 * Daily weights and intake output and fluid restriction * Pending official read on echocardiogram from December 28, 2018 * Aspirin 81 mg once a day * Plavix 75 mg once a day * Lasix 40 mg IV daily twice daily * Switched to PO Lasix on discharge * Potassium supplement once daily in light of diuresis * Toprol-XL 12.5 mg once a day * Cozaar 50 mg once a day is on hold given renal status * Crestor 10 mg once at night * Physical therapy per December 30 note noted for home with services at least 3-5 times a week for at least 2 weeks post ICU downgraded to telemetry 2. Acute kidney injury, improving Assessment/plan * Nephrology on board help appreciated nephrology has signed off 3. Acute Scleritis, improving Assessment/Plan * Patient has completed 5 days of ciprofloxacin drops 4. Coronary artery disease and Peripheral vascular disease, chronic- s/p CABG and stent Assessment/plan * Cardiology on board * Prior history of CABG * Cardiac cath recently performed on November 29, 2018 noted for successful coronary intervention of the saphenous vein graft to obtuse marginal artery he required 2 drug-eluting stents recommends for Plavix for at least one year as well as to continue aspirin statin beta-isidro and MARY inhibitors for life * Aspirin 81 mg PO daily * Plavix 75 mg PO daily * Crestor 10 mg PO QHS * Cozaar on hold given patient history of chronic renal disease * Toprol-XL 12.5 mg once a day 5. Pulmonary Hypertension 2/2 Asthma and Obstructive Sleep Apnea, chronic Assessment/plan * Pulmonary on board help appreciated * Breo Ellipta 1 puff INH daily * Ventolin 2 puff IH Q6H PRN * Nystatin 5 mL PO QID 6. Type 2 diabetes Mellitus with peripheral neuropathy, chronic Assessment/plan * A1c 6.7 * Accuchecks ACHS * Hypoglycemia protocol * ISS medium * Januvia 100 mg PO daily * Neurontin 100 mg PO BID * Cymbalta 60 mg PO daily 7. Hypertension, chronic * Toprol-XL 12.5 mg once a day * Cozaar on hold given renal status * Fluid restriction * Lasix 40 mg IV twice a day 8. Prophylactic measure * VTE: SCDs contraindicated due to LE edema, Heparin 5000 units SC Q8H * GI: Pepcid 40 mg PO daily * Diet: Heart healthy, 1.2 L restriction
[2019-01-01 08:53] VITALS: BP 146/73; PULSE 79; TEMP 97.6
[2019-01-01] MEDS: (Novolog) Insulin Aspart, Recombinant 100 u/ml 10 ml vial SC SCH (08:58)
[2019-01-01] MEDS: Potassium Chloride 20 mEq ER Tab PO SCH (10:00)
[2019-01-01] MEDS: Metoprolol Succinate 12.5 mg XL Tab PO SCH (10:01)
[2019-01-01] MEDS: Fluticasone-Vilanterol 100/25mcg Diskus INH SCH (11:10)
--- NOTE | 2019-01-01 11:39 | CARD ---
APPROVED REPORT Date of service: 12/28/2018 EXAM: LIMITED Two-dimensional and M-mode echocardiogram with Doppler and color Doppler. Other Information Quality : AverageRhythm : INDICATION LV Function:SystolicDiastolic 2D DIMENSIONS IVSd0.9 (0.7-1.1cm)LVDd4.2 (3.9-5.9cm) PWd0.9 (0.7-1.1cm)LVDs2.8 (2.5-4.0cm) FS (%) 34.9 %LVEF (%)64.5 (>50%) LVEF (Sue's)60.86 % M-Mode DIMENSIONS IVSd0.93 (0.7-1.1cm)LVDd5.11 (4.0-5.6cm) PWd0.91 (0.7-1.1cm)FS (%) 42 % LVDs2.94 (2.0-3.8cm)LVEF (%)73 (>50%) Mitral Valve MV E Ptqhcjeq59.7cm/sMV A Pnzpzwlj80.0cm/sE/A ratio0.9 TDI Lateral E' Peak V8.03cm/sMedial E' Peak V5.64cm/sE/Lateral E'9.7 E/Medial E'13.8 LEFT VENTRICLE The left ventricle is normal size. There is normal left ventricular wall thickness. Left ventricle systolic function is normal. The Ejection Fraction is >70%. There is normal LV segmental wall motion. The left ventricular diastolic function is abnormal- Grade I-abnormal relaxation pattern. No left ventricle thrombus noted on this study. RIGHT VENTRICLE The right ventricle is normal size. The right ventricular systolic function is normal. ATRIA The left atrium size is normal. The right atrium size is normal. AORTIC VALVE The aortic valve is trileaflet. No aortic regurgitation is present. There is no aortic valvular stenosis. There is no aortic valvular vegetation. MITRAL VALVE Mitral annular calcification is mild. There is no evidence of mitral valve prolapse. There is no mitral valve stenosis. There is no mitral valve regurgitation noted. TRICUSPID VALVE The tricuspid valve is normal in structure. There is no tricuspid valve regurgitation noted. There is no tricuspid valve prolapse or vegetation. There is no tricuspid valve stenosis. PULMONIC VALVE The pulmonic valve is not well visualized. There is no pulmonic valvular regurgitation. GREAT VESSELS The aortic root is normal in size. The IVC was not visualized. PERICARDIAL EFFUSION There is no pericardial effusion. There is no pleural effusion. <Conclusion> The left ventricle is normal size. Left ventricle systolic function is normal. The Ejection Fraction is >70%. The left ventricular diastolic function is abnormal- Grade I-abnormal relaxation pattern. The right ventricle is normal size. The right ventricular systolic function is normal. The left atrium size is normal. The right atrium size is normal. Normal valves.
--- NOTE | 2019-01-01 20:43 | PCM.HF ---
Heart Failure Core Measure - Heart Failure Ejection Fraction: 40 % or Greater Left Ventricular Function to be assessed after discharge: Yes MARY Inhibitor Prescribed: No Contraindication/Reason for not providing: renal status Beta-Isidro Prescribed: Metoprolol Succinate Angiotensin II Receptor Isidro Prescribed: No Contraindication/Reason for not providing: renal status AnticoagulationTherapy for Atrial Fibrillation/Atrialflutter: No Contraindication/Reason for not providing: not clinically indicated Aldosterone Antagonist Prescribed: No Contraindication/Reason for not providing: not clinically indicated Hydralazine Nitrate Prescribed: No Contraindication/Reason for not providing: not clinically indicated Implantable Cardioverter Defibrillator Therapy: No Contraindication/Reason for not providing: not clinically indicated Cardiac Resynchronization Therapy Prescribed: No Contraindication/Reason for not providing: not clinically indicated - Follow up Will be discharged to: Home Follow Up Date (must be within 7 days from discharge): 01/08/19 Follow Up Time: 09:00
== END 2019-01-01 14:01 | disposition home or self-care (01) | DRG 291 ==
LOC: C.ER 14:20 → C.9E 17:38 → C.5S 18:57 → C.9I 12-28 16:04 → C.5S 12-30 23:25
PROVIDERS: ADMIT Internal Medicine; ATTEND Hospitalist
DX: I13.0 Hypertensive heart and chronic kidney disease with heart failure and stage 1 through stage 4 chronic kidney disease, or unspecified chronic kidney disease (principal); I50.33 Acute on chronic diastolic (congestive) heart failure; N17.9 Acute kidney failure, unspecified; B37.0 Candidal stomatitis; E87.3 Alkalosis; E11.21 Type 2 diabetes mellitus with diabetic nephropathy; E11.22 Type 2 diabetes mellitus with diabetic chronic kidney disease; E11.42 Type 2 diabetes mellitus with diabetic polyneuropathy; E11.51 Type 2 diabetes mellitus with diabetic peripheral angiopathy without gangrene; I35.1 Nonrheumatic aortic (valve) insufficiency; E87.6 Hypokalemia; N18.3 Chronic kidney disease, stage 3 (moderate); T50.2X5A Adverse effect of carbonic-anhydrase inhibitors, benzothiadiazides and other diuretics, initial encounter; I27.20 Pulmonary hypertension, unspecified; E78.00 Pure hypercholesterolemia, unspecified; E78.5 Hyperlipidemia, unspecified; G47.33 Obstructive sleep apnea (adult) (pediatric); E66.9 Obesity, unspecified; J45.909 Unspecified asthma, uncomplicated; H10.9 Unspecified conjunctivitis; I25.10 Atherosclerotic heart disease of native coronary artery without angina pectoris; Z87.19 Personal history of other diseases of the digestive system; Z79.84 Long term (current) use of oral hypoglycemic drugs; Z79.02 Long term (current) use of antithrombotics/antiplatelets; Z79.82 Long term (current) use of aspirin; Z79.899 Other long term (current) drug therapy; Z87.01 Personal history of pneumonia (recurrent); Z95.1 Presence of aortocoronary bypass graft; Z95.5 Presence of coronary angioplasty implant and graft

== ENCOUNTER 2019-02-26 14:36 | Observation (INO) | payer MEDICARE ==
[2019-02-26 14:43] VITALS: BMI 27.9
--- NOTE | 2019-02-26 15:06 | C.PDOC ---
History Of Present Illness 59 yr old male w/ hx of CABG, CAD w/ stent, Anemia, Diabetes, HTN, HLD p/w LLE swelling and redness x1 week. Pt notes worsening redness associated with pain. He denies any current antibiotics, fall or trauma. He denies any difficulty ranging his LLE. Mild swelling, but no fever, chills or night sweats. No discoloration to toes or blackened extremities. No other complaints. Time Seen by Provider: 02/26/19 14:57 Chief Complaint (Nursing): Lower Extremity Problem/Injury Past Medical History Vital Signs: Last Vital Signs Temp 98.8 F 02/26/19 14:41 Pulse 106 H 02/26/19 14:41 Resp 16 02/26/19 14:41 BP 131/73 02/26/19 14:41 Pulse Ox 98 02/26/19 14:41 Primary Care Provider: Ailyn Phelps - Medical History PMH: Anemia, Depression, Diabetes, Gastritis, Gall Bladder Disease, HTN, Hypercholesterolemia, Hyperlipidemia, Pneumonia Denies: Chronic Kidney Disease Surgical History: CABG (2003), Coronary Stent (2010), Endoscopy - [facility] Procedures FLUOROSCOPY OF MULT COR ART USING L OSM CONTRAST (11/24/18) FLUOROSCOPY OF THORACIC AORTA USING LOW OSMOLAR CONTRAST (11/24/18) MEASURE OF CARDIAC SAMPL & PRESSURE, L HEART, PERC APPROACH (11/24/18) Family History: States: Unknown Family Hx - Social History Hx Tobacco Use: No Hx Alcohol Use: No Hx Substance Use: No - Immunization History Hx Tetanus Toxoid Vaccination: No Hx Influenza Vaccination: No Hx Pneumococcal Vaccination: No Review Of Systems Constitutional: Negative for: Fever, Chills, Weakness, Malaise Eyes: Negative for: Pain, Vision Change ENT: Negative for: Ear Pain, Ear Discharge, Nose Pain, Nose Congestion, Mouth Pain Cardiovascular: Negative for: Chest Pain, Palpitations, Orthopnea, Paroxysmal Noc. Dyspnea, Edema, Light Headedness Respiratory: Negative for: Cough, Shortness of Breath, SOB with Excertion, Pleuritic Pain Gastrointestinal: Negative for: Nausea, Vomiting, Abdominal Pain, Diarrhea, Constipation, Melena, Hematemesis Genitourinary: Negative for: Dysuria, Frequency, Incontinence, Hematuria, Scrotal Pain Musculoskeletal: Negative for: Neck Pain, Shoulder Pain, Arm Pain, Back Pain Skin: Negative for: Rash, Lesions, Jaundice Neurological: Negative for: Weakness, Numbness, Confusion, Headache Psych: Negative for: Anxiety, Depression, Psychosis, Suicidal ideation Physical Exam - Physical Exam Appears: Well, Non-toxic, No Acute Distress Skin: Normal Color, Warm, Dry Head: Atraumatic, Normacephalic Eye(s): bilateral: Normal Inspection, PERRL, EOMI Ear(s): Bilateral: Normal Nose: Normal Oral Mucosa: Moist Tongue: Normal Appearing Lips: Normal Appearing Throat: Normal, No Erythema, No Exudate, No Drooling, No Mass Neck: Normal, Normal ROM, Supple, Other (no meningeal signs) Cardiovascular: Rhythm Regular Respiratory: Normal Breath Sounds Gastrointestinal/Abdominal: Normal Exam Back: Normal Inspection, No CVA Tenderness, No Vertebral Tenderness Extremity: No Deformity, Other (LLE erythema cicumfrential to calf, no crepitus or fluctuance noted. No hard compartments. Good n/v status distally) Pulses: Left Dorsalis Pedis: Normal, Right Dorsalis Pedis: Normal Neurological/Psych: Oriented x3, Normal Speech, Normal Cognition Gait: Steady ED Course And Treatment - Laboratory Results Result Diagrams: 02/26/19 16:40 02/26/19 16:40 O2 Sat by Pulse Oximetry: 98 Medical Decision Making Medical Decision Makin yr old male w/ hx of CABG, CAD w/ stent, Anemia, Diabetes, HTN, HLD p/w LLE swelling and redness x1 week. ?DVT vs LLE infection in the setting of diabetes and CAD. No signs of fall or trauma. Good n/v status distally. No crepitus or fluctuance / purulent draunage Pending imaging and labs 1621 DVT US negative pending labs, xr 1705 lactic 2.2, initially tachy upon arrival given RF, eleated lactic and tachy and appearance of cellulitis, reccomend obs for improvement of cellulitis XRay unremarkable appreciate consult w/ Dr. Stevenson: to admit to her service pt in NAD, agreeable to plan Disposition - Disposition Disposition Time: 17:07 Condition: STABLE Forms: [employer] (Polish) - Clinical Impression Clinical Impression: Cellulitis
[2019-02-26 16:43] LABS: BASO % 0.4 % (0.0-2.0); EOS % 0.3 % (0.0-4.0); HEMOGLOBIN 10.5 g/dL (12.0-18.0); LYMPH % 13.2 % (20.0-40.0); MEAN CORPUSCULAR HEMOGLOBIN 24.1 pg (27.0-31.0); MEAN CORPUSCULAR HGB CONC 32.1 g/dL (33.0-37.0); MONO # 1.3 K/uL (0.0-0.8); MONO % 16.4 % (0.0-10.0); NEUT # 5.3 K/uL (1.8-7.0); NEUT % 69.7 % (50.0-75.0); NRBC % 0.3 % (0.0-2.0); RBC 4.34 Mil/uL (4.40-5.90); RED CELL DISTRIBUTION WIDTH 18.1 % (11.5-14.5); WHITE BLOOD COUNT 7.6 K/uL (4.8-10.8)
[2019-02-26 16:48] LABS: VENOUS BLOOD GAS BASE EXCESS -1.1 mmol/L (0.0-2.0); VENOUS BLOOD GAS PCO2 33 mmHg (40-60); VENOUS BLOOD GAS PO2 62 mm/Hg (30-55); VENOUS BLOOD PH 7.44 (7.32-7.43)
[2019-02-26 16:55] LABS: ALB/GLOB RATIO 1.1 (1.0-2.1); ALBUMIN 3.8 g/dL (3.5-5.0); ALT/SGPT 22 U/L (21-72); AST/SGOT 53 U/L (17-59); BLOOD UREA NITROGEN 19 mg/dL (9-20); CALCIUM 8.6 mg/dl (8.6-10.4); GFR NON-AFRICAN AMERICAN > 60
[2019-02-26] MEDS ORDERED: Clindamycin 600mg/50ml D5W 600 MG/50 ML VIAL IVPB SCH (17:00)
--- NOTE | 2019-02-26 17:04 | RAD ---
PROCEDURE: Left Ankle Radiographs. Three views. HISTORY: L ankle swelling, redness COMPARISON: None available. FINDINGS: BONES: No acute displaced fracture. JOINTS: No dislocation. SOFT TISSUES: Vascular calcifications. Vascular clips. Marked soft tissue swelling. OTHER FINDINGS: None. IMPRESSION: Soft tissue swelling. Vascular clips. No acute displaced fracture or dislocation identified.
[2019-02-26] MEDS ORDERED: Albuterol-Ipratrop 3 mg / 0.5 (3 ml) UD IH PRN (17:59)
[2019-02-26] MEDS ORDERED: PrednisoLONE 1% Opht Susp(5 ml) OD SCH (18:00)
[2019-02-26] MEDS ORDERED: Clindamycin 600mg/50ml NS 600 MG/50 ML BAG IVPB ONE (18:00)
[2019-02-26] MEDS ORDERED: Dextrose 50% SYRINGE Inj (50 ml) IV PRN (18:07)
[2019-02-26] MEDS ORDERED: Glucagon Recombinant 1 mg Inj IM PRN (18:07)
--- NOTE | 2019-02-26 18:22 | RAD ---
HISTORY: admission COMPARISON: Chest x-ray performed 12/28/18 TECHNIQUE: Chest, one view. FINDINGS: Examination limited by habitus. LUNGS: Hazy left lower lobe infiltrate. Please note that chest x-ray has limited sensitivity for the detection of pulmonary masses. PLEURA: No significant pleural effusion identified. No definite pneumothorax . CARDIOVASCULAR: Median sternotomy wires with evidence of CABG. Cardiomegaly. OSSEOUS STRUCTURES: Degenerative changes. Osseous demineralization. VISUALIZED UPPER ABDOMEN: Mild elevation of the right hemidiaphragm. OTHER FINDINGS: None. IMPRESSION: Hazy left lower lobe infiltrate. Cardiomegaly. Median sternotomy wires with evidence of CABG.
--- NOTE | 2019-02-26 18:25 | CP.PCM.HP ---
<Mckayla Raines - Last Filed: 02/26/19 19:40> History of Present Illness - History of Present Illness History of Present Illness: 59 year old male with past medical history of CAD with CABG 2003, stent 2010 and 2 drug eluting stents in November 2018, DM2, PVD, Hyperlipidemia, angina, HTN, gastritis, asthma, GASTON presents to the ER for left lower extremity pain. Patient states he showed a picture of his leg to his PMD who told him to come to the ER on Tuesday, but the patient stated the pain was worse today. He states he noticed his leg to red and swollen about one week ago. The pain is constantly throbbing and an 8/10 pain. He has not been taking any pain medications or antibiotics for the leg. He denies any trauma to the leg. Patient denies fever, chills, nausea, vomiting, diarrhea or constipation. He states he has been compliant with all of his home medications. PMD: Dr. Messi Phelps Cardiology: Dr. Yan Pulm: Dr. Lebron GI: Dr. Alvarado Past Medical History: CAD with CABG 2003, stent 2010 and 2 drug eluting stents in November 2018, DM2, PVD, Hyperlipidemia, angina, HTN, gastritis, asthma, GASTON (uses a CPAP machine at home) Past Surgical History: CABG (2003), Coronary Stent (2010, 2018) Medications:Ventolin HFA 90 mcg/actuation (8 g)] 2 puff IH [id number] PRN; Aspirin 81 mg PO DAILY; Atorvastatin 20 mg PO DAILY; Invokana 300 mg PO DAILY; Plavix 75 mg PO DAILY; Cymbalta 60 mg PO DAILY; Pepcid 40 mg PO DAILY; [Breo Ellipta 100- 25 MCG INH 1 puff INH RQD; Lasix 20 mg PO BID; Gabapentin 100mg PO BID; Losartan 25 mg PO DAILY; Metformin 500 mg PO DAILY; Metoprolol Succinate XL 12.5 mg PO DAILY; Potassium Chloride 10 meq PO DAILY; Januvia 100 mg PO DAILY Allergies: NKDA Social History: Lives alone; denies smoking, illicit drug use or alcohol Present on Admission - Present on Admission Any Indicators Present on Admission: No Review of Systems - Constitutional Constitutional: absent: Chills, Fever - Cardiovascular Cardiovascular: Leg Edema. absent: Chest Pain, Dyspnea, Palpitations - Respiratory Respiratory: absent: Dyspnea - Gastrointestinal Gastrointestinal: absent: Constipation, Diarrhea, Nausea, Vomiting - Genitourinary Genitourinary: absent: Dysuria - Musculoskeletal Musculoskeletal: Joint Swelling, Other (throbbing left LE pain ) - Integumentary Integumentary: Skin Pain Past Patient History - Infectious Disease Hx of Infectious Diseases: None - Past Medical History & Family History Past Medical History?: Yes - Past Social History Smoking Status: Never Smoked - CARDIAC Hx Hypercholesterolemia: Yes Hx Hypertension: Yes - PULMONARY Hx Pneumonia: Yes - NEUROLOGICAL Hx Neurological Disorder: No - HEENT Hx HEENT Problems: No - RENAL Hx Chronic Kidney Disease: No - ENDOCRINE/METABOLIC Hx Endocrine Disorders: Yes Hx Diabetes Mellitus Type 2: Yes - HEMATOLOGICAL/ONCOLOGICAL Hx Anemia: Yes - INTEGUMENTARY Hx Dermatological Problems: No - MUSCULOSKELETAL/RHEUMATOLOGICAL Hx Musculoskeletal Disorders: No Hx Falls: No - GASTROINTESTINAL Hx Gall Bladder Disease: Yes Hx Gastritis: Yes - GENITOURINARY/GYNECOLOGICAL Hx Genitourinary Disorders: No - PSYCHIATRIC Hx Depression: Yes Hx Substance Use: No - SURGICAL HISTORY Hx Coronary Artery Bypass Graft: Yes (2003) Hx Coronary Stent: Yes (2010) - ANESTHESIA Hx Anesthesia: Yes Hx Anesthesia Reactions: No Hx Malignant Hyperthermia: No Meds Allergies/Adverse Reactions: Allergies Allergy/AdvReac Type Severity Reaction Status Date / Time No Known Allergies Allergy Verified 02/26/19 14:42 Physical Exam - Constitutional Appears: No Acute Distress, Older Than Stated Age - Head Exam Head Exam: ATRAUMATIC, NORMAL INSPECTION - Eye Exam Eye Exam: EOMI, Normal appearance, PERRL Pupil Exam: NORMAL ACCOMODATION - ENT Exam ENT Exam: Mucous Membranes Moist - Respiratory Exam Respiratory Exam: Rhonchi (bilateral lower lungs), NORMAL BREATHING PATTERN - Cardiovascular Exam Cardiovascular Exam: REGULAR RHYTHM, +S1, +S2 - GI/Abdominal Exam GI & Abdominal Exam: Normal Bowel Sounds, Soft. absent: Tenderness - Extremities Exam Additional comments: Left LE erythema; swelling - Neurological Exam Neurological exam: Alert, Oriented x3 - Psychiatric Exam Psychiatric exam: Normal Affect - Skin Skin Exam: Erythema (Left LE) Results - Vital Signs Recent Vital Signs: Last Vital Signs Temp 97.9 F 02/26/19 17:30 Pulse 95 H 02/26/19 17:30 Resp 18 02/26/19 17:30 BP 142/74 02/26/19 17:30 Pulse Ox 100 02/26/19 17:30 - Labs Result Diagrams: 02/26/19 16:40 02/26/19 16:40 Labs: Laboratory Results - last 24 hr 02/26/19 02/26/19 02/26/19 16:40 16:40 16:40 WBC 7.6 RBC 4.34 L Hgb 10.5 L Hct 32.6 L MCV 75.0 L D MCH 24.1 L MCHC 32.1 L RDW 18.1 H Plt Count 169 MPV 8.0 Neut % (Auto) 69.7 Lymph % (Auto) 13.2 L [place] % (Auto) 16.4 H Eos % (Auto) 0.3 Baso % (Auto) 0.4 Neut # (Auto) 5.3 Lymph # (Auto) 1.0 [place] # (Auto) 1.3 H Eos # (Auto) 0.0 Baso # (Auto) 0.0 pO2 VBG pH VBG pCO2 VBG HCO3 VBG Total CO2 VBG O2 Sat (Calc) VBG Base Excess VBG Potassium Glucose Lactate Sodium 134 Potassium 4.1 Chloride 100 Carbon Dioxide 21 L Anion Gap 16 BUN 19 Creatinine 0.8 Est GFR ( Amer) > 60 Est GFR (Non-Af Amer) > 60 Random Glucose 126 H D Calcium 8.6 Total Bilirubin 0.9 AST 53 ALT 22 Alkaline Phosphatase 112 Total Creatine Kinase 57 Total Protein 7.3 Albumin 3.8 Globulin 3.5 Albumin/Globulin Ratio 1.1 Venous Blood Potassium 02/26/19 16:44 WBC RBC Hgb Hct MCV MCH MCHC RDW Plt Count MPV Neut % (Auto) Lymph % (Auto) [place] % (Auto) Eos % (Auto) Baso % (Auto) Neut # (Auto) Lymph # (Auto) [place] # (Auto) Eos # (Auto) Baso # (Auto) pO2 62 H VBG pH 7.44 H VBG pCO2 33 L VBG HCO3 23.9 VBG Total CO2 23.4 VBG O2 Sat (Calc) 94.1 H VBG Base Excess -1.1 L VBG Potassium 3.5 L Glucose 126 H Lactate 2.2 H Sodium 135.0 Potassium Chloride 105.0 Carbon Dioxide Anion Gap BUN Creatinine Est GFR ( Amer) Est GFR (Non-Af Amer) Random Glucose Calcium Total Bilirubin AST ALT Alkaline Phosphatase Total Creatine Kinase Total Protein Albumin Globulin Albumin/Globulin Ratio Venous Blood Potassium 3.5 L Assessment & Plan - Assessment and Plan (Free Text) Assessment: Left Lower Extremity Cellulitis - afebrile; wbc (wnl) - ID Consult: Dr. Ridley --> help appreciated - Clindamycin 600mg IV given once in the ER - Vancomycin 1gm IV daily - Tylenol 650mg q6prn for fever - f/u blood culture - Venous Doppler: Negative - Left Ankle Xray: No acute displaced fracture or dislocation; soft tissue swelling; vascular clips. Diastolic congestive heart failure - f/u proBNP - Trop negative - CXR on admission: Hazy Left lower Lobe Infiltrate - Echo (12/28/18): EF 73% ; left ventricle is normal size; left ventricle systolic function is normal (please see full report) - Daily weights - 1.2 L fluid restriction - Medications: * Cozaar 25 mg PO daily on HOLD due to MATTHEW * Metoprolol 12.5 mg PO daily * Lasix 40mg IV given once on admission * Lasix 20mg po bid * Kdur 10 mEq daily Coronary artery disease and Peripheral vascular disease - CABG (2003) and stent (2010; 2017) - Lipid Panel (11/23/18): Total Cholesterol 112; LDL 72; HDL 43; Triglycerides 92 - Medications: * Aspirin 81 mg PO daily * Plavix 75 mg PO daily * Crestor 10 mg PO QHS Type 2 diabetes Mellitus with peripheral neuropathy - A1c 6.7 (12/26/18) - [facility] - Hypoglycemia protocol - Medications * ISS medium * Neurontin 100 mg PO BID * Cymbalta 60 mg PO daily History of Hypertension - Medications: * Cozaar 25 mg PO daily * Metoprolol 12.5 mg PO daily History of Asthma - Duonenbs q6 prn for shortness of breath - Brovana 15mcg INH rq12h - Pulmicort 0.5mg INH rrq12h History of Obstructive Sleep Apnea - CPAP Machine Prophylaxis VTE: SCDs contraindicated due to LE edema, Heparin 5000 units SC Q8H GI: Pepcid 40 mg PO daily; Florator 250mg daily Diet: Heart healthy, 1.2 L restriction Physical Therapy Case discussed with Dr. Prakash Raines PGY-2 <Victoriano Randall - Last Filed: 02/28/19 18:39> Results - Vital Signs Recent Vital Signs: Last Vital Signs Temp 98.1 F 02/28/19 15:00 Pulse 88 02/28/19 17:25 Resp 20 02/28/19 15:00 BP 105/66 02/28/19 17:29 Pulse Ox 99 02/28/19 15:00 - Labs Result Diagrams: 02/28/19 06:49 02/28/19 06:49 Labs: Laboratory Results - last 24 hr 02/27/19 02/28/19 02/28/19 21:22 06:07 06:49 WBC 6.8 RBC 4.18 L Hgb 10.2 L Hct 31.0 L MCV 74.2 L MCH 24.5 L MCHC 33.0 RDW 18.2 H Plt Count 183 MPV 8.9 Neut % (Auto) 62.5 Lymph % (Auto) 19.5 L [place] % (Auto) 17.1 H Eos % (Auto) 0.5 Baso % (Auto) 0.4 Neut # (Auto) 4.2 Lymph # (Auto) 1.3 [place] # (Auto) 1.2 H Eos # (Auto) 0.0 Baso # (Auto) 0.0 Sodium Potassium Chloride Carbon Dioxide Anion Gap BUN Creatinine Est GFR ( Amer) Est GFR (Non-Af Amer) POC Glucose (mg/dL) 159 H Random Glucose Calcium Phosphorus Magnesium Total Bilirubin AST ALT Alkaline Phosphatase Total Protein Albumin Globulin Albumin/Globulin Ratio Vancomycin Trough 15.8 H 02/28/19 02/28/19 02/28/19 06:49 07:16 11:07 WBC RBC Hgb Hct MCV MCH MCHC RDW Plt Count MPV Neut % (Auto) Lymph % (Auto) [place] % (Auto) Eos % (Auto) Baso % (Auto) Neut # (Auto) Lymph # (Auto) [place] # (Auto) Eos # (Auto) Baso # (Auto) Sodium 132 Potassium 3.6 Chloride 97 L Carbon Dioxide 26 Anion Gap 13 BUN 22 H Creatinine 0.8 Est GFR ( Amer) > 60 Est GFR (Non-Af Amer) > 60 POC Glucose (mg/dL) 95 201 H Random Glucose 87 Calcium 8.6 Phosphorus 3.3 Magnesium 2.2 Total Bilirubin 0.8 AST 52 ALT 23 Alkaline Phosphatase 85 Total Protein 6.5 Albumin 3.3 L Globulin 3.3 Albumin/Globulin Ratio 1.0 Vancomycin Trough 02/28/19 16:37 WBC RBC Hgb Hct MCV MCH MCHC RDW Plt Count MPV Neut % (Auto) Lymph % (Auto) [place] % (Auto) Eos % (Auto) Baso % (Auto) Neut # (Auto) Lymph # (Auto) [place] # (Auto) Eos # (Auto) Baso # (Auto) Sodium Potassium Chloride Carbon Dioxide Anion Gap BUN Creatinine Est GFR ( Amer) Est GFR (Non-Af Amer) POC Glucose (mg/dL) 106 Random Glucose Calcium Phosphorus Magnesium Total Bilirubin AST ALT Alkaline Phosphatase Total Protein Albumin Globulin Albumin/Globulin Ratio Vancomycin Trough Attending/Attestation - Attestation I have personally seen and examined this patient.: Yes I have fully participated in the care of the patient.: Yes I have reviewed all pertinent clinical information: Yes Notes (Text): seen and examined. patient was send by his primary care for painful left leg swelling and erythema. P Cellulitis of left leg CHF-chronic diastolic CHF DM CAD asthma
[2019-02-26 18:29] LABS: CK-MB 1.38 ng/mL (0.0-3.38); TROPONIN I 0.056 ng/mL (0.00-0.120)
[2019-02-26 18:37] VITALS: RESP 20
[2019-02-26] MEDS ORDERED: Vancomycin 1 gm/NS 200 ml 1 GM/200 ML BAG IVPB SCH (19:00)
[2019-02-26] MEDS: (Novolin R) Insulin Human Regular 100 units/ml vial SC SCH (21:19)
[2019-02-26 23:10] LABS: SQUAMOUS EPITHIAL < 1 /hpf (0-5); URINE BILIRUBIN NEGATIVE (NEGATIVE); URINE BLOOD NEGATIVE (NEGATIVE); URINE CLARITY Clear (Clear); URINE COLOR Colorless (YELLOW); URINE GLUCOSE (UA) 3+ mg/dL (Normal); URINE LEUKOCYTE ESTERASE NEG Leu/uL (Negative); URINE PROTEIN NEGATIVE (NEGATIVE); URINE UROBILINOGEN NORMAL mg/dL (0.2-1.0)
[2019-02-27] MEDS ORDERED: Clindamycin 600mg/50ml NS 600 MG/50 ML BAG IVPB SCH (02:00)
[2019-02-27] MEDS: Vancomycin 1 gm/NS 200 ml 1 GM/200 ML BAG IVPB SCH ×2 (06:22→18:43)
[2019-02-27 07:32] LABS: BASO % 0.5 % (0.0-2.0); EOS % 0.1 % (0.0-4.0); HEMOGLOBIN 10.4 g/dL (12.0-18.0); LYMPH # 1.1 K/uL (1.0-4.3); LYMPH % 13.4 % (20.0-40.0); MEAN CELL VOLUME 73.9 fL (80.0-94.0); MEAN CORPUSCULAR HEMOGLOBIN 24.4 pg (27.0-31.0); MEAN PLATELET VOLUME 8.4 fL (7.2-11.7); MONO # 1.3 K/uL (0.0-0.8); MONO % 15.8 % (0.0-10.0); NEUT # 5.6 K/uL (1.8-7.0); NEUT % 70.2 % (50.0-75.0); NRBC % 0.3 % (0.0-2.0); RBC 4.25 Mil/uL (4.40-5.90); WHITE BLOOD COUNT 7.9 K/uL (4.8-10.8)
[2019-02-27] MEDS: (Novolin R) Insulin Human Regular 100 units/ml vial SC SCH ×4 (08:03→21:38)
[2019-02-27] MEDS: Arformoterol 15 mcg/2 ml Inh Sol INH SCH ×2 (08:14→20:28)
[2019-02-27] MEDS: Budesonide 0.5 mg/2 ml Inhal Susp UD INH SCH ×2 (08:14→20:29)
[2019-02-27 09:39] LABS: BLOOD UREA NITROGEN 20 mg/dL (9-20); GFR NON-AFRICAN AMERICAN > 60
[2019-02-27 09:40] LABS: CALCIUM 8.8 mg/dl (8.6-10.4)
[2019-02-27 09:41] LABS: ALB/GLOB RATIO 0.9 (1.0-2.1); ALBUMIN 3.5 g/dL (3.5-5.0); ALT/SGPT 28 U/L (21-72); AST/SGOT 44 U/L (17-59); HDL CHOLESTEROL 36 mg/dL (30-70); LDL CHOLESTEROL 100 mg/dL (0-129)
[2019-02-27] MEDS: Saccharomyces Boulardi 250 mg Cap PO SCH (09:41)
[2019-02-27] MEDS: Potassium Chloride 10 mEq ER Tab PO SCH (09:41)
[2019-02-27] MEDS ORDERED: Metoprolol Succinate 12.5 mg XL Tab PO SCH (10:00)
--- NOTE | 2019-02-27 11:51 | CP.PCM.PN ---
Subjective - Date & Time of Evaluation Date of Evaluation: 02/27/19 Time of Evaluation: 08:00 - Subjective Subjective: 59 year old male with hx of CAD is admitted with severe celluliitis LLE and associated sepsis is referred for ID evaluation and anti=biotic management Past Medical History: CAD with CABG 2003, stent 2010 and 2 drug eluting stents in November 2018, DM2, PVD, Hyperlipidemia, angina, HTN, gastritis, asthma, GASTON (uses a CPAP machine at home) Past Surgical History: CABG (2003), Coronary Stent (2010, 2018) Medications:Ventolin HFA 90 mcg/actuation (8 g)] 2 puff IH [id number] PRN; Aspirin 81 mg PO DAILY; Atorvastatin 20 mg PO DAILY; Invokana 300 mg PO DAILY; Plavix 75 mg PO DAILY; Cymbalta 60 mg PO DAILY; Pepcid 40 mg PO DAILY; [Breo Ellipta 100- 25 MCG INH 1 puff INH RQD; Lasix 20 mg PO BID; Gabapentin 100mg PO BID; Losartan 25 mg PO DAILY; Metformin 500 mg PO DAILY; Metoprolol Succinate XL 12.5 mg PO DAILY; Potassium Chloride 10 meq PO DAILY; Januvia 100 mg PO DAILY Allergies: NKDA Social History: Lives alone; denies smoking, illicit drug use or alcohol Objective - Vital Signs/Intake and Output Vital Signs (last 24 hours): Temp Pulse Resp BP Pulse Ox 98.5 F 110 H 20 136/74 97 02/27/19 08:06 02/27/19 08:06 02/27/19 08:06 02/27/19 09:42 02/27/19 08:06 Intake and Output: 02/27/19 02/27/19 06:59 18:59 Intake Total 560 380 Output Total 800 Balance -240 380 - Medications Medications: Current Medications Acetaminophen (Tylenol 325mg Tab) 650 mg PO Q6 PRN PRN Reason: Fever >100.4 F Albuterol/Ipratropium (Duoneb 3 Mg/0.5 Mg (3 Ml) Ud) 2 ml IH RQ6 PRN PRN Reason: Shortness of Breath Arformoterol Tartrate (Brovana) 15 mcg INH RQ12@1000,2200 BRIANDA Aspirin (Ecotrin) 81 mg PO DAILY BRIANDA Last Admin: 02/27/19 09:41 Dose: 81 mg Budesonide (Pulmicort Respules) 0.5 mg INH RQ12 [facility] Last Admin: 02/27/19 08:14 Dose: Not Given Clopidogrel Bisulfate (Plavix) 75 mg PO DAILY [facility] Last Admin: 02/27/19 09:42 Dose: 75 mg Dextrose (Dextrose 50% Inj) 0 ml IV STAT PRN; Protocol PRN Reason: Hypoglycemia Protocol Dextrose (Glutose 15) 0 gm PO ONCE PRN; Protocol PRN Reason: Hypoglycemia Protocol Duloxetine HCl (Cymbalta) 60 mg PO DAILY [facility] Last Admin: 02/27/19 09:41 Dose: 60 mg Famotidine (Pepcid) 40 mg PO DAILY [facility] Last Admin: 02/27/19 09:41 Dose: 40 mg Furosemide (Lasix) 20 mg PO BID [facility] Last Admin: 02/27/19 09:42 Dose: 20 mg Gabapentin (Neurontin) 100 mg PO BID [facility] Last Admin: 02/27/19 09:42 Dose: 100 mg Glucagon (Glucagen Diagnostic Kit) 0 mg IM STAT PRN; Protocol PRN Reason: Hypoglycemia Protocol Heparin Sodium (Porcine) (Heparin) 5,000 units SC Q8 [facility] Last Admin: 02/27/19 06:23 Dose: 5,000 units Dextrose (Dextrose 5% In Water 1000 Ml) 1,000 mls @ 0 mls/hr IV .Q0M PRN; Protocol PRN Reason: Hypoglycemia Protocol Vancomycin/Sodium Chloride (Vancomycin 1 Gm/Ns 200 Ml) 1 gm in 200 mls @ 133 mls/hr IVPB Q12H [facility]; Protocol Stop: 03/04/19 07:01 Last Admin: 02/27/19 06:22 Dose: 133 mls/hr Insulin Human Regular (Novolin R) 0 unit SC ACHS [facility]; Protocol Last Admin: 02/27/19 11:35 Dose: Not Given Losartan Potassium (Cozaar) 25 mg PO DAILY [facility] Last Admin: 02/27/19 09:42 Dose: 25 mg Metoprolol Succinate (Toprol Xl) 12.5 mg PO DAILY [facility] Last Admin: 02/27/19 09:41 Dose: 12.5 mg Pneumococcal Polyvalent Vaccine (Pneumovax 23 Vaccine) 0.5 ml IM .ONCE ONE Stop: 02/28/19 10:01 Potassium Chloride (Klor-Con 10) 10 meq PO DAILY [facility] Last Admin: 05/21/19 09:41 Dose: 10 meq Rosuvastatin Calcium (Crestor) 10 mg PO [facility] Last Admin: 02/26/19 21:12 Dose: 10 mg Saccharomyces Boulardii (Florastor) 250 mg PO DAILY [facility] Last Admin: 02/27/19 09:41 Dose: 250 mg - Labs Labs: 02/27/19 07:24 02/27/19 07:24
--- NOTE | 2019-02-27 12:01 | VASCLAB ---
Date of service: 02/26/2019 PROCEDURE: Left Lower Extremity Venous Duplex Exam. HISTORY: LLE swelling PRIORS: None. TECHNIQUE: Left common femoral, femoral, popliteal and posterior tibial, peroneal and great saphenous veins were evaluated. Flow was assessed with color Doppler, compressibility, assessment of phasic flow and augmentation response. Report prepared by Mendoza Pham, GILDA, RVT FINDINGS: LEFT: 1. Common Femoral Vein: 1.1. Compressibility - Fully compressible: Thrombus - None : Flow - Phasic: Augmentation -Normal: Reflux - None. 2. Femoral Vein: 2.1. Compressibility - Fully compressible: Thrombus - None: Flow - Phasic: Augmentation -Normal: Reflux - None. 3. Popliteal Vein: 3.1. Compressibility - Fully compressible: Thrombus - None: Flow - Phasic: Augmentation -Normal: Reflux - None. 4. Posterior Tibial Vein: 4.1. Compressibility - Fully compressible: Thrombus - None: Flow - Phasic: Augmentation -Normal: Reflux - None. 5. Peroneal Vein: 5.1. Compressibility - Fully compressible: Thrombus - None: Flow - Phasic: Augmentation -Normal: Reflux - None. 6. Great Saphenous Vein: 6.1. Compressibility - : Thrombus - : Flow - : Augmentation - : Reflux - . OTHER FINDINGS: The left greater saphenous vein has been removed. IMPRESSION: No evidence of deep or superficial vein thrombosis of the left lower extremity with excellent venous flow. Normal valve function noted of the left side. Normal venous flow noted in the right common femoral vein.
[2019-02-27] MEDS: Metoprolol Succinate 25 mg XL Tab PO SCH (14:30)
[2019-02-27] MEDS ORDERED: Oxycodone/Acetaminophen 5/325 mg Tab PO PRN (17:16)
--- NOTE | 2019-02-27 17:29 | CP.PCM.PN ---
<Rickie Chowdhury - Last Filed: 02/27/19 17:27> Subjective - Date & Time of Evaluation Date of Evaluation: 02/27/19 Time of Evaluation: 17:30 - Subjective Subjective: PGY-[address] Randall Patient seen and examined at bedside. No acute events overnight. Patient reports significant tenderness of cellulitic food when it touches up against something, but no pain at rest. Patient denies fever, chills, nausea, vomiting, diarrhea or constipation. Objective - Vital Signs/Intake and Output Vital Signs (last 24 hours): Temp Pulse Resp BP Pulse Ox 98.9 F 92 H 20 108/65 95 02/27/19 15:59 02/27/19 15:59 02/27/19 15:59 02/27/19 15:59 02/27/19 16:00 Intake and Output: 02/27/19 02/27/19 06:59 18:59 Intake Total 560 380 Output Total 800 Balance -240 380 - Medications Medications: Current Medications Acetaminophen (Tylenol 325mg Tab) 650 mg PO Q6 PRN PRN Reason: Fever >100.4 F Albuterol/Ipratropium (Duoneb 3 Mg/0.5 Mg (3 Ml) Ud) 2 ml IH RQ6 PRN PRN Reason: Shortness of Breath Arformoterol Tartrate (Brovana) 15 mcg INH RQ12@1000,2200 [facility] Last Admin: 02/27/19 08:14 Dose: Not Given Aspirin (Ecotrin) 81 mg PO DAILY [facility] Last Admin: 02/27/19 09:41 Dose: 81 mg Budesonide (Pulmicort Respules) 0.5 mg INH RQ12 [facility] Last Admin: 02/27/19 08:14 Dose: Not Given Clopidogrel Bisulfate (Plavix) 75 mg PO DAILY [facility] Last Admin: 02/27/19 09:42 Dose: 75 mg Dextrose (Dextrose 50% Inj) 0 ml IV STAT PRN; Protocol PRN Reason: Hypoglycemia Protocol Dextrose (Glutose 15) 0 gm PO ONCE PRN; Protocol PRN Reason: Hypoglycemia Protocol Duloxetine HCl (Cymbalta) 60 mg PO DAILY [facility] Last Admin: 02/27/19 09:41 Dose: 60 mg Famotidine (Pepcid) 40 mg PO DAILY [facility] Last Admin: 02/27/19 09:41 Dose: 40 mg Furosemide (Lasix) 20 mg PO BID [facility] Last Admin: 02/27/19 09:42 Dose: 20 mg Gabapentin (Neurontin) 100 mg PO BID [facility] Last Admin: 02/27/19 09:42 Dose: 100 mg Glucagon (Glucagen Diagnostic Kit) 0 mg IM STAT PRN; Protocol PRN Reason: Hypoglycemia Protocol Heparin Sodium (Porcine) (Heparin) 5,000 units SC Q8 [facility] Last Admin: 02/27/19 13:57 Dose: 5,000 units Dextrose (Dextrose 5% In Water 1000 Ml) 1,000 mls @ 0 mls/hr IV .Q0M PRN; Protocol PRN Reason: Hypoglycemia Protocol Vancomycin/Sodium Chloride (Vancomycin 1 Gm/Ns 200 Ml) 1 gm in 200 mls @ 133 mls/hr IVPB Q12H [facility]; Protocol Stop: 03/04/19 07:01 Last Admin: 02/27/19 06:22 Dose: 133 mls/hr Insulin Human Regular (Novolin R) 0 unit SC ACHS [facility]; Protocol Last Admin: 02/27/19 11:35 Dose: Not Given Losartan Potassium (Cozaar) 25 mg PO DAILY [facility] Last Admin: 02/27/19 09:42 Dose: 25 mg Metoprolol Succinate (Toprol Xl) 25 mg PO DAILY [facility] Last Admin: 02/27/19 14:30 Dose: 25 mg Oxycodone/Acetaminophen (Percocet 5/325 Mg Tab) 1 tab PO Q6H PRN PRN Reason: Pain, severe (8-10) Stop: 03/02/19 17:17 Pneumococcal Polyvalent Vaccine (Pneumovax 23 Vaccine) 0.5 ml IM .ONCE ONE Stop: 02/28/19 10:01 Potassium Chloride (Klor-Con 10) 10 meq PO DAILY [facility] Last Admin: 02/27/19 09:41 Dose: 10 meq Rosuvastatin Calcium (Crestor) 10 mg PO HS [facility] Last Admin: 02/26/19 21:12 Dose: 10 mg Saccharomyces Boulardii (Florastor) 250 mg PO DAILY [facility] Last Admin: 02/27/19 09:41 Dose: 250 mg - Labs Labs: 02/27/19 07:24 02/27/19 07:24 - Constitutional Appears: Non-toxic, No Acute Distress - Head Exam Head Exam: ATRAUMATIC, NORMOCEPHALIC - Eye Exam Eye Exam: EOMI, Normal appearance - ENT Exam ENT Exam: Mucous Membranes Moist - Respiratory Exam Respiratory Exam: Clear to Ausculation Bilateral, NORMAL BREATHING PATTERN. absent: Rhonchi, Wheezes - Cardiovascular Exam Cardiovascular Exam: REGULAR RHYTHM, +S1, +S2 - GI/Abdominal Exam GI & Abdominal Exam: Soft, Normal Bowel Sounds - Extremities Exam Additional comments: Left LE erythema; swelling. Exquisitely ttp. - Neurological Exam Neurological Exam: Alert, Awake, Oriented x3 - Psychiatric Exam Psychiatric exam: Normal Affect, Normal Mood - Skin Skin Exam: Dry, Intact Assessment and Plan - Assessment and Plan (Free Text) Assessment: Left Lower Extremity Cellulitis - afebrile; wbc (wnl) - ID Consult: Dr. Mack --> help appreciated - Vancomycin 1gm IV daily - Tylenol 650mg q6prn for fever - f/u blood culture - Venous Doppler: Negative - Left Ankle Xray: No acute displaced fracture or dislocation; soft tissue swelling; vascular clips. -Erythema borders demarcated - monitor daily Diastolic congestive heart failure - f/u proBNP - Trop negative - CXR on admission: Hazy Left lower Lobe Infiltrate - Echo (12/28/18): EF 73% ; left ventricle is normal size; left ventricle systolic function is normal (please see full report) - Daily weights - 1.2 L fluid restriction - Metoprolol increased to 25 mg PO daily - Medications: * Cozaar 25 mg PO daily on HOLD due to MATTHEW * Metoprolol 25 mg PO daily * Lasix 40mg IV given once on admission * Lasix 20mg po bid * Kdur 10 mEq daily Coronary artery disease and Peripheral vascular disease - CABG (2003) and stent (2010; 2017) - Lipid Panel (11/23/18): Total Cholesterol 112; LDL 72; HDL 43; Triglycerides 92 - Medications: * Aspirin 81 mg PO daily * Plavix 75 mg PO daily * Crestor 10 mg PO QHS Type 2 diabetes Mellitus with peripheral neuropathy - A1c 6.7 (12/26/18) - [facility] - Hypoglycemia protocol - Medications * ISS medium * Neurontin 100 mg PO BID * Cymbalta 60 mg PO daily History of Hypertension - Medications: * Cozaar 25 mg PO daily * Metoprolol 12.5 mg PO daily History of Asthma - Duonenbs q6 prn for shortness of breath - Brovana 15mcg INH rq12h - Pulmicort 0.5mg INH rrq12h History of Obstructive Sleep Apnea - CPAP Machine Prophylaxis VTE: SCDs contraindicated due to LE edema, Heparin 5000 units SC Q8H GI: Pepcid 40 mg PO daily; Florator 250mg daily Diet: Heart healthy, 1.2 L restriction Physical Therapy Case discussed with Dr. Prakash Chowdhury, PGY-1 <Victoriano Randall - Last Filed: 02/27/19 19:06> Objective - Vital Signs/Intake and Output Vital Signs (last 24 hours): Temp Pulse Resp BP Pulse Ox 98.9 F 92 H 20 110/66 95 02/27/19 15:59 02/27/19 15:59 02/27/19 15:59 02/27/19 17:39 02/27/19 16:00 Intake and Output: 02/27/19 02/28/19 18:59 06:59 Intake Total 380 Balance 380 - Medications Medications: Current Medications Acetaminophen (Tylenol 325mg Tab) 650 mg PO Q6 PRN PRN Reason: Fever >100.4 F Acetaminophen (Tylenol 325mg Tab) 650 mg PO Q6 PRN PRN Reason: Pain, Mild (1-3) Albuterol/Ipratropium (Duoneb 3 Mg/0.5 Mg (3 Ml) Ud) 2 ml IH RQ6 PRN PRN Reason: Shortness of Breath Arformoterol Tartrate (Brovana) 15 mcg INH RQ12@1000,2200 [facility] Last Admin: 02/27/19 08:14 Dose: Not Given Aspirin (Ecotrin) 81 mg PO DAILY [facility] Last Admin: 02/27/19 09:41 Dose: 81 mg Budesonide (Pulmicort Respules) 0.5 mg INH RQ12 [facility] Last Admin: 02/27/19 08:14 Dose: Not Given Clopidogrel Bisulfate (Plavix) 75 mg PO DAILY [facility] Last Admin: 02/27/19 09:42 Dose: 75 mg Dextrose (Dextrose 50% Inj) 0 ml IV STAT PRN; Protocol PRN Reason: Hypoglycemia Protocol Dextrose (Glutose 15) 0 gm PO ONCE PRN; Protocol PRN Reason: Hypoglycemia Protocol Duloxetine HCl (Cymbalta) 60 mg PO DAILY [facility] Last Admin: 02/27/19 09:41 Dose: 60 mg Famotidine (Pepcid) 40 mg PO DAILY [facility] Last Admin: 02/27/19 09:41 Dose: 40 mg Furosemide (Lasix) 20 mg PO BID [facility] Last Admin: 02/27/19 17:39 Dose: 20 mg Gabapentin (Neurontin) 100 mg PO BID [facility] Last Admin: 02/27/19 17:39 Dose: 100 mg Glucagon (Glucagen Diagnostic Kit) 0 mg IM STAT PRN; Protocol PRN Reason: Hypoglycemia Protocol Heparin Sodium (Porcine) (Heparin) 5,000 units SC Q8 [facility] Last Admin: 02/27/19 13:57 Dose: 5,000 units Dextrose (Dextrose 5% In Water 1000 Ml) 1,000 mls @ 0 mls/hr IV .Q0M PRN; Protocol PRN Reason: Hypoglycemia Protocol Vancomycin/Sodium Chloride (Vancomycin 1 Gm/Ns 200 Ml) 1 gm in 200 mls @ 133 mls/hr IVPB Q12H [facility]; Protocol Stop: 03/04/19 07:01 Last Admin: 02/27/19 18:43 Dose: 133 mls/hr Insulin Human Regular (Novolin R) 0 unit SC ACHS [facility]; Protocol Last Admin: 02/27/19 17:36 Dose: Not Given Losartan Potassium (Cozaar) 25 mg PO DAILY [facility] Last Admin: 02/27/19 09:42 Dose: 25 mg Metoprolol Succinate (Toprol Xl) 25 mg PO DAILY [facility] Last Admin: 02/27/19 14:30 Dose: 25 mg Oxycodone/Acetaminophen (Percocet 5/325 Mg Tab) 1 tab PO Q6H PRN PRN Reason: Pain, severe (8-10) Stop: 03/02/19 17:17 Pneumococcal Polyvalent Vaccine (Pneumovax 23 Vaccine) 0.5 ml IM .ONCE ONE Stop: 02/28/19 10:01 Potassium Chloride (Klor-Con 10) 10 meq PO DAILY [facility] Last Admin: 02/27/19 09:41 Dose: 10 meq Rosuvastatin Calcium (Crestor) 10 mg PO HS [facility] Last Admin: 02/26/19 21:12 Dose: 10 mg Saccharomyces Boulardii (Florastor) 250 mg PO DAILY [facility] Last Admin: 02/27/19 09:41 Dose: 250 mg - Labs Labs: 02/27/19 07:24 02/27/19 07:24 Attending/Attestation - Attestation I have personally seen and examined this patient.: Yes I have fully participated in the care of the patient.: Yes I have reviewed all pertinent clinical information, including history, physical exam and plan: Yes Notes (Text): SEEN AND EXAMINED THIS MORNING HIS LEG IS LITTLE BETTER TODAY CONTINUE VANCOMYCIN DR MACK CONSULT APPRECIATED
[2019-02-28] MEDS: Vancomycin 1 gm/NS 200 ml 1 GM/200 ML BAG IVPB SCH ×2 (06:53→19:43)
[2019-02-28 07:30] LABS: BASO % 0.4 % (0.0-2.0); EOS % 0.5 % (0.0-4.0); HEMOGLOBIN 10.2 g/dL (12.0-18.0); LYMPH # 1.3 K/uL (1.0-4.3); LYMPH % 19.5 % (20.0-40.0); MEAN CELL VOLUME 74.2 fL (80.0-94.0); MEAN CORPUSCULAR HEMOGLOBIN 24.5 pg (27.0-31.0); MEAN PLATELET VOLUME 8.9 fL (7.2-11.7); MONO # 1.2 K/uL (0.0-0.8); MONO % 17.1 % (0.0-10.0); NEUT # 4.2 K/uL (1.8-7.0); NEUT % 62.5 % (50.0-75.0); NRBC % 0.2 % (0.0-2.0); RBC 4.18 Mil/uL (4.40-5.90); RED CELL DISTRIBUTION WIDTH 18.2 % (11.5-14.5); WHITE BLOOD COUNT 6.8 K/uL (4.8-10.8)
[2019-02-28 07:32] LABS: ALBUMIN 3.3 g/dL (3.5-5.0); ALT/SGPT 23 U/L (21-72); AST/SGOT 52 U/L (17-59); BLOOD UREA NITROGEN 22 mg/dL (9-20); CALCIUM 8.6 mg/dl (8.6-10.4); GFR NON-AFRICAN AMERICAN > 60
[2019-02-28] MEDS: Arformoterol 15 mcg/2 ml Inh Sol INH SCH (07:45)
[2019-02-28] MEDS: Budesonide 0.5 mg/2 ml Inhal Susp UD INH SCH ×2 (07:45→19:26)
[2019-02-28] MEDS: (Novolin R) Insulin Human Regular 100 units/ml vial SC SCH ×4 (07:59→21:27)
--- NOTE | 2019-02-28 09:47 | CP.PCM.PN ---
Subjective - Date & Time of Evaluation Date of Evaluation: 02/28/19 Time of Evaluation: 09:44 - Subjective Subjective: PGY-[address] Stevenson Patient seen and examined at bedside. No acute events overnight. Reports continued and unchanged left lower extremity pain with contact. Denies fevers or chills. Denies n/v/d/c, chest pain , dizziness, JOHNSON. Objective - Vital Signs/Intake and Output Vital Signs (last 24 hours): Temp Pulse Resp BP Pulse Ox 98.9 F 79 20 116/71 98 02/28/19 08:00 02/28/19 08:00 02/28/19 08:00 02/28/19 08:00 02/28/19 08:00 Intake and Output: 02/28/19 02/28/19 06:59 18:59 Intake Total 550 380 Output Total 650 Balance -100 380 - Medications Medications: Current Medications Acetaminophen (Tylenol 325mg Tab) 650 mg PO Q6 PRN PRN Reason: Fever >100.4 F Acetaminophen (Tylenol 325mg Tab) 650 mg PO Q6 PRN PRN Reason: Pain, Mild (1-3) Albuterol/Ipratropium (Duoneb 3 Mg/0.5 Mg (3 Ml) Ud) 2 ml IH RQ6 PRN PRN Reason: Shortness of Breath Arformoterol Tartrate (Brovana) 15 mcg INH RQ12@1000,2200 [facility] Last Admin: 02/27/19 20:28 Dose: 15 mcg Aspirin (Ecotrin) 81 mg PO DAILY [facility] Last Admin: 02/27/19 09:41 Dose: 81 mg Budesonide (Pulmicort Respules) 0.5 mg INH RQ12 [facility] Last Admin: 02/28/19 07:45 Dose: Not Given Clopidogrel Bisulfate (Plavix) 75 mg PO DAILY [facility] Last Admin: 02/27/19 09:42 Dose: 75 mg Dextrose (Dextrose 50% Inj) 0 ml IV STAT PRN; Protocol PRN Reason: Hypoglycemia Protocol Dextrose (Glutose 15) 0 gm PO ONCE PRN; Protocol PRN Reason: Hypoglycemia Protocol Duloxetine HCl (Cymbalta) 60 mg PO DAILY [facility] Last Admin: 02/27/19 09:41 Dose: 60 mg Famotidine (Pepcid) 40 mg PO DAILY [facility] Last Admin: 02/27/19 09:41 Dose: 40 mg Furosemide (Lasix) 20 mg PO BID [facility] Last Admin: 02/27/19 17:39 Dose: 20 mg Gabapentin (Neurontin) 100 mg PO BID [facility] Last Admin: 02/27/19 17:39 Dose: 100 mg Glucagon (Glucagen Diagnostic Kit) 0 mg IM STAT PRN; Protocol PRN Reason: Hypoglycemia Protocol Heparin Sodium (Porcine) (Heparin) 5,000 units SC Q8 [facility] Last Admin: 02/28/19 05:50 Dose: 5,000 units Dextrose (Dextrose 5% In Water 1000 Ml) 1,000 mls @ 0 mls/hr IV .Q0M PRN; Protocol PRN Reason: Hypoglycemia Protocol Vancomycin/Sodium Chloride (Vancomycin 1 Gm/Ns 200 Ml) 1 gm in 200 mls @ 133 mls/hr IVPB Q12H [facility]; Protocol Stop: 03/04/19 07:01 Last Admin: 02/28/19 06:53 Dose: 133 mls/hr Insulin Human Regular (Novolin R) 0 unit SC ACHS [facility]; Protocol Last Admin: 02/28/19 07:59 Dose: Not Given Losartan Potassium (Cozaar) 25 mg PO DAILY [facility] Last Admin: 02/27/19 09:42 Dose: 25 mg Metoprolol Succinate (Toprol Xl) 25 mg PO DAILY [facility] Last Admin: 02/27/19 14:30 Dose: 25 mg Oxycodone/Acetaminophen (Percocet 5/325 Mg Tab) 1 tab PO Q6H PRN PRN Reason: Pain, severe (8-10) Stop: 03/02/19 17:17 Pneumococcal Polyvalent Vaccine (Pneumovax 23 Vaccine) 0.5 ml IM .ONCE ONE Stop: 02/28/19 10:01 Potassium Chloride (Klor-Con 10) 10 meq PO DAILY [facility] Last Admin: 02/27/19 09:41 Dose: 10 meq Rosuvastatin Calcium (Crestor) 10 mg PO HS [facility] Last Admin: 02/27/19 21:36 Dose: 10 mg Saccharomyces Boulardii (Florastor) 250 mg PO DAILY [facility] Last Admin: 02/27/19 09:41 Dose: 250 mg - Labs Labs: 02/28/19 06:49 02/28/19 06:49 - Constitutional Appears: Non-toxic, No Acute Distress - Head Exam Head Exam: ATRAUMATIC, NORMOCEPHALIC - Eye Exam Eye Exam: EOMI - ENT Exam ENT Exam: Mucous Membranes Moist - Respiratory Exam Respiratory Exam: Clear to Ausculation Bilateral, NORMAL BREATHING PATTERN. absent: Rhonchi, Wheezes - Cardiovascular Exam Cardiovascular Exam: REGULAR RHYTHM, +S1, +S2 - GI/Abdominal Exam GI & Abdominal Exam: Soft, Normal Bowel Sounds. absent: Tenderness - Extremities Exam Extremities Exam: Tenderness (LLE cellulitic area tender to palpation). absent: Pedal Edema Additional comments: Cellulitic changes LLE, demarcated. Some improvement. Tenderness to palpation. - Neurological Exam Neurological Exam: Alert, Awake, Oriented x3 - Psychiatric Exam Psychiatric exam: Normal Affect, Normal Mood - Skin Skin Exam: Dry, Intact Assessment and Plan - Assessment and Plan (Free Text) Assessment: Left Lower Extremity Cellulitis - afebrile; wbc (wnl) - ID Consult: Dr. Ridley --> help appreciated - Vancomycin 1gm IV daily - Tylenol 650mg q6prn for fever - Venous Doppler: Negative - Left Ankle Xray: No acute displaced fracture or dislocation; soft tissue swelling; vascular clips. -Erythema borders demarcated - monitor daily Micro - blood cultures negative x24hrs -Per Dr. Ridley, patient to remain in hospital overnight --Plan to d/c tomorrow 03/01 to [facility] with one week of IV vancomycin Diastolic congestive heart failure - f/u proBNP - Trop negative - CXR on admission: Hazy Left lower Lobe Infiltrate - Echo (12/28/18): EF 73% ; left ventricle is normal size; left ventricle systolic function is normal (please see full report) - Daily weights - 1.2 L fluid restriction - Metoprolol increased to 25 mg PO daily - Medications: * Cozaar 25 mg PO daily on HOLD due to MATTHEW * Metoprolol 25 mg PO daily * Lasix 40mg IV given once on admission * Lasix 20mg po bid * Kdur 10 mEq daily Coronary artery disease and Peripheral vascular disease - CABG (2003) and stent (2010; 2017) - Lipid Panel (11/23/18): Total Cholesterol 112; LDL 72; HDL 43; Triglycerides 92 - Medications: * Aspirin 81 mg PO daily * Plavix 75 mg PO daily * Crestor 10 mg PO QHS Type 2 diabetes Mellitus with peripheral neuropathy - A1c 6.7 (12/26/18) - [facility]CH[facility] - Hypoglycemia protocol - Medications * ISS medium * Neurontin 100 mg PO BID * Cymbalta 60 mg PO daily History of Hypertension - Medications: * Cozaar 25 mg PO daily * Metoprolol 12.5 mg PO daily History of Asthma - Duonenbs q6 prn for shortness of breath - Brovana 15mcg INH rq12h - Pulmicort 0.5mg INH rrq12h History of Obstructive Sleep Apnea - CPAP Machine Prophylaxis VTE: SCDs contraindicated due to LE edema, Heparin 5000 units SC Q8H GI: Pepcid 40 mg PO daily; Florator 250mg daily Diet: Heart healthy, 1.2 L restriction Physical Therapy Case discussed with Dr. Prakash Chowdhury, PGY-1
[2019-02-28] MEDS ORDERED: Pneumococcal 23-Valent Vaccine IM ONE (10:00)
[2019-02-28] MEDS: Metoprolol Succinate 25 mg XL Tab PO SCH (10:07)
[2019-02-28] MEDS: Saccharomyces Boulardi 250 mg Cap PO SCH (10:07)
[2019-02-28] MEDS: Potassium Chloride 10 mEq ER Tab PO SCH (10:10)
--- NOTE | 2019-02-28 13:15 | CP.PCM.PN ---
Subjective - Date & Time of Evaluation Date of Evaluation: 02/28/19 Time of Evaluation: 07:00 - Subjective Subjective: seen on roiunds left leg swelling persists pulses diminished by edema will obtain arterial dopplers consider formal vascular eval Vanco level adequate Objective - Vital Signs/Intake and Output Vital Signs (last 24 hours): Temp Pulse Resp BP Pulse Ox 98.9 F 79 20 116/71 98 02/28/19 08:00 02/28/19 08:00 02/28/19 08:00 02/28/19 10:09 02/28/19 08:00 Intake and Output: 02/28/19 02/28/19 06:59 18:59 Intake Total 550 380 Output Total 650 Balance -100 380 - Medications Medications: Current Medications Acetaminophen (Tylenol 325mg Tab) 650 mg PO Q6 PRN PRN Reason: Fever >100.4 F Acetaminophen (Tylenol 325mg Tab) 650 mg PO Q6 PRN PRN Reason: Pain, Mild (1-3) Albuterol/Ipratropium (Duoneb 3 Mg/0.5 Mg (3 Ml) Ud) 2 ml IH RQ6 PRN PRN Reason: Shortness of Breath Arformoterol Tartrate (Brovana) 15 mcg INH RQ12@1000,2200 [facility] Last Admin: 02/27/19 20:28 Dose: 15 mcg Aspirin (Ecotrin) 81 mg PO DAILY [facility] Last Admin: 02/28/19 10:09 Dose: 81 mg Budesonide (Pulmicort Respules) 0.5 mg INH RQ12 [facility] Last Admin: 02/28/19 07:45 Dose: Not Given Clopidogrel Bisulfate (Plavix) 75 mg PO DAILY [facility] Last Admin: 02/28/19 10:07 Dose: 75 mg Dextrose (Dextrose 50% Inj) 0 ml IV STAT PRN; Protocol PRN Reason: Hypoglycemia Protocol Dextrose (Glutose 15) 0 gm PO ONCE PRN; Protocol PRN Reason: Hypoglycemia Protocol Duloxetine HCl (Cymbalta) 60 mg PO DAILY [facility] Last Admin: 02/28/19 10:08 Dose: 60 mg Famotidine (Pepcid) 40 mg PO DAILY [facility] Last Admin: 02/28/19 10:08 Dose: 40 mg Furosemide (Lasix) 20 mg PO BID [facility] Last Admin: 02/28/19 10:09 Dose: 20 mg Gabapentin (Neurontin) 100 mg PO BID [facility] Last Admin: 02/28/19 10:12 Dose: 100 mg Glucagon (Glucagen Diagnostic Kit) 0 mg IM STAT PRN; Protocol PRN Reason: Hypoglycemia Protocol Heparin Sodium (Porcine) (Heparin) 5,000 units SC Q8 [facility] Last Admin: 02/28/19 05:50 Dose: 5,000 units Dextrose (Dextrose 5% In Water 1000 Ml) 1,000 mls @ 0 mls/hr IV .Q0M PRN; Protocol PRN Reason: Hypoglycemia Protocol Vancomycin/Sodium Chloride (Vancomycin 1 Gm/Ns 200 Ml) 1 gm in 200 mls @ 133 mls/hr IVPB Q12H [facility]; Protocol Stop: 03/04/19 07:01 Last Admin: 02/28/19 06:53 Dose: 133 mls/hr Insulin Human Regular (Novolin R) 0 unit SC ACHS [facility]; Protocol Last Admin: 02/28/19 11:45 Dose: 3 units Losartan Potassium (Cozaar) 25 mg PO DAILY [facility] Last Admin: 02/28/19 10:09 Dose: 25 mg Metoprolol Succinate (Toprol Xl) 25 mg PO DAILY [facility] Last Admin: 02/28/19 10:07 Dose: 25 mg Oxycodone/Acetaminophen (Percocet 5/325 Mg Tab) 1 tab PO Q6H PRN PRN Reason: Pain, severe (8-10) Stop: 03/02/19 17:17 Potassium Chloride (Klor-Con 10) 10 meq PO DAILY [facility] Last Admin: 02/28/19 10:10 Dose: 10 meq Rosuvastatin Calcium (Crestor) 10 mg PO HS [facility] Last Admin: 02/27/19 21:36 Dose: 10 mg Saccharomyces Boulardii (Florastor) 250 mg PO DAILY [facility] Last Admin: 02/28/19 10:07 Dose: 250 mg - Labs Labs: 02/28/19 06:49 02/28/19 06:49 - Constitutional Appears: Non-toxic, No Acute Distress, Chronically Ill - Head Exam Head Exam: ATRAUMATIC, NORMAL INSPECTION, NORMOCEPHALIC - Eye Exam Eye Exam: EOMI, Normal appearance, PERRL Pupil Exam: NORMAL ACCOMODATION, PERRL - ENT Exam ENT Exam: Mucous Membranes Moist, Normal Exam - Neck Exam Neck Exam: Full ROM, Normal Inspection. absent: Lymphadenopathy - Respiratory Exam Respiratory Exam: Clear to Ausculation Bilateral, NORMAL BREATHING PATTERN - Cardiovascular Exam Cardiovascular Exam: REGULAR RHYTHM, +S1, +S2. absent: Murmur - GI/Abdominal Exam GI & Abdominal Exam: Soft, Normal Bowel Sounds. absent: Tenderness - Rectal Exam Rectal Exam: Deferred - Exam Exam: NORMAL INSPECTION - Extremities Exam Extremities Exam: Full ROM, Pedal Edema, Tenderness. absent: Joint Swelling, Normal Capillary Refill, Normal Inspection - Back Exam Back Exam: NORMAL INSPECTION - Neurological Exam Neurological Exam: Alert, Awake, CN II-XII Intact, Normal Gait, Oriented x3 - Psychiatric Exam Psychiatric exam: Normal Affect, Normal Mood - Skin Skin Exam: Dry, Erythema, Intact, Warm Assessment and Plan (1) Cellulitis Status: Acute (2) CHF (congestive heart failure) Status: Acute (3) Obstructive sleep apnea (adult) (pediatric) Status: Acute (4) Pneumonia Status: Acute - Assessment and Plan (Free Text) Assessment: severe cellulitis pneumonia CAD s/p CABG s/p PTCA CHF Pneumonia cont IV antibiotics as ordered folllow up CXR till clear arterial dopplers
--- NOTE | 2019-02-28 18:13 | CP.PCM.CON ---
History of Present Illness - History of Present Illness History of Present Illness: 59 year old male with hx of CAD is admitted with severe celluliitis LLE and associated sepsis is referred for ID evaluation and anti=biotic management Past Medical History: CAD with CABG 2003, stent 2010 and 2 drug eluting stents in November 2018, DM2, PVD, Hyperlipidemia, angina, HTN, gastritis, asthma, GASTON (uses a CPAP machine at home) Past Surgical History: CABG (2003), Coronary Stent (2010, 2018) Medications:Ventolin HFA 90 mcg/actuation (8 g)] 2 puff IH [id number] PRN; Aspirin 81 mg PO DAILY; Atorvastatin 20 mg PO DAILY; Invokana 300 mg PO DAILY; Plavix 75 mg PO DAILY; Cymbalta 60 mg PO DAILY; Pepcid 40 mg PO DAILY; [Breo Ellipta 100- 25 MCG INH 1 puff INH RQD; Lasix 20 mg PO BID; Gabapentin 100mg PO BID; Losartan 25 mg PO DAILY; Metformin 500 mg PO DAILY; Metoprolol Succinate XL 12.5 mg PO DAILY; Potassium Chloride 10 meq PO DAILY; Januvia 100 mg PO DAILY Allergies: NKDA Social History; denies smoking, illicit drug use or alcohol Review of Systems - Review of Systems Systems not reviewed;Unavailable: Uncooperative All systems: reviewed and no additional remarkable complaints except - Constitutional Constitutional: As Per HPI, Daytime Sleepiness. absent: Frequent Falls - EENT Eyes: absent: As Per HPI, Blind Spots, Blurred Vision, Change in Vision, Decreased Night Vision, Diplopia, Discharge, Dry Eye, Exophthalmos, Floaters, Irritation, Itchy Eyes, Loss of Peripheral Vision, Pain, Photophobia, Requires Corrective Lenses, Sees Flashes, Spots in Vision, Tunnel Vision, Other Visual Disturbances, Loss of Vision, Other Ears: absent: As Per HPI, Decreased Hearing, Ear Discharge, Ear Pain, Tinnitus, Abnormal Hearing, Disequilibrium, Dizziness, Other Nose/Mouth/Throat: absent: As Per HPI, Epistaxis, Nasal Congestion, Nasal Discharge, Nasal Obstruction, Nasal Trauma, Nose Pain, Post Nasal Drip, Sinus Pain, Sinus Pressure, Bleeding Gums, Change in Voice, Dental Pain, Dry Mouth, Dysphagia, Halitosis, Hoarsness, Lip Swelling, Mouth Lesions, Mouth Pain, Odynophagia, Sore Throat, Throat Swelling, Tongue Swelling, Facial Pain, Neck Pain, Neck Mass, Other - Cardiovascular Cardiovascular: As Per HPI - Respiratory Respiratory: absent: As Per HPI, Cough, Dyspnea, Hemoptysis, Dyspnea on Exertion, Wheezing, Snoring, Stridor, Pain on Inspiration, Chest Congestion, Excessive Mucous Production, Change in Mucous Color, Pain with Coughing, Other - Gastrointestinal Gastrointestinal: absent: As Per HPI, Abdominal Pain, Belching, Bloating, Change in Bowel Habits, Change in Stool Character, Coffee Ground Emesis, Constipation, Cramping, Diarrhea, Dyspepsia, Dysphagia, Early Satiety, Excessive Flatus, Fecal Incontinence, Heartburn, Hematemesis, Hematochezia, Loose Stools, Melena, Nausea, Odynophagia, Temesmus, Vomiting, Other - Genitourinary Genitourinary: absent: As Per HPI, Change in Urinary Stream, Difficulty Urinating, Dysuria, Flank Pain, Hematuria, Pyuria, Nocturia, Urinary Incontinence, Urinary Frequency, Urinary Hesitance, Urinary Urgency, Voiding Freq/Small Amts, Freq UTI, Hx Renal/Bladder Calculi, Hx /Renal Surgery, Blad cinda Distension, Other - Musculoskeletal Musculoskeletal: absent: As Per HPI, Abnormal Gait, Arthralgias, Atrophy, Back Pain, Deformity, Joint Swelling, Limited Range of Motion, Loss of Height, Muscle Cramps, Muscle Weakness, Myalgias, Neck Pain, Numbness, Radiating Pain into Limb, Stiffness, Tingling, Other - Integumentary Integumentary: As Per HPI, Skin Pain - Neurological Neurological: absent: As Per HPI, Abnormal Gait, Abnormal Hearing, Abnormal Movements, Abnormal Speech, Behavioral Changes, Burning Sensations, Confusion, Convulsions, Disequilibrium, Dizziness, Numbness, Focal Weakness, Frequent Falls, Headaches, Lack of Coordination, Loss of Vision, Memory Loss, Paresth esias, Radicular Pain, Restless Legs, Sensory Deficit, Syncope, Tingling, Tremor, Vertigo, Weakness, Other Visual Disturbances, Other - Psychiatric Psychiatric: absent: As Per HPI, Abnormal Sleep Pattern, Anhedonia, Anxiety, Auditory Hallucinations, Behavioral Changes, Change in Appetite, Change in Libido, Confusion, Depression, Difficulty Concentrating, Hallucinations, Homicidal Ideation, Hopelessness, Irritability, Memory Loss, Mood Swings, Panic Attacks, Paranoia, Suicidal Ideation, Visual Hallucinations, Tactile Hallucinations, Other - Hematologic/Lymphatic Hematologic: absent: As Per HPI, Easy Bleeding, Easy Bruising, Lymphadenopathy, Other Past Patient History - Infectious Disease Hx of Infectious Diseases: None - Past Medical History & Family History Past Medical History?: Yes - Past Social History Smoking Status: Never Smoked - CARDIAC Hx Cardiac Disorders: Yes (CAD, STENT; CABG) Hx Hypercholesterolemia: Yes Hx Hypertension: Yes - PULMONARY Hx Pneumonia: Yes - NEUROLOGICAL Hx Neurological Disorder: No - HEENT Hx HEENT Problems: No - RENAL Hx Chronic Kidney Disease: No - ENDOCRINE/METABOLIC Hx Diabetes Mellitus Type 2: Yes - HEMATOLOGICAL/ONCOLOGICAL Hx Anemia: Yes - INTEGUMENTARY Hx Dermatological Problems: No - MUSCULOSKELETAL/RHEUMATOLOGICAL Hx Musculoskeletal Disorders: No Hx Falls: No - GASTROINTESTINAL Hx Gall Bladder Disease: Yes Hx Gastritis: Yes - GENITOURINARY/GYNECOLOGICAL Hx Genitourinary Disorders: No - PSYCHIATRIC Hx Depression: Yes Hx Substance Use: No - SURGICAL HISTORY Hx Coronary Artery Bypass Graft: Yes (2003) Hx Coronary Stent: Yes (2010) - ANESTHESIA Hx Anesthesia: Yes Hx Anesthesia Reactions: No Hx Malignant Hyperthermia: No Meds Allergies/Adverse Reactions: Allergies Allergy/AdvReac Type Severity Reaction Status Date / Time No Known Allergies Allergy Verified 02/26/19 14:42 - Medications Medications: Current Medications Acetaminophen (Tylenol 325mg Tab) 650 mg PO Q6 PRN PRN Reason: Fever >100.4 F Acetaminophen (Tylenol 325mg Tab) 650 mg PO Q6 PRN PRN Reason: Pain, Mild (1-3) Albuterol/Ipratropium (Duoneb 3 Mg/0.5 Mg (3 Ml) Ud) 2 ml IH RQ6 PRN PRN Reason: Shortness of Breath Arformoterol Tartrate (Brovana) 15 mcg INH RQ12@1000,2200 [facility] Last Admin: 02/27/19 20:28 Dose: 15 mcg Aspirin (Ecotrin) 81 mg PO DAILY [facility] Last Admin: 02/27/19 09:41 Dose: 81 mg Budesonide (Pulmicort Respules) 0.5 mg INH RQ12 [facility] Last Admin: 02/27/19 20:29 Dose: 0.5 mg Clopidogrel Bisulfate (Plavix) 75 mg PO DAILY [facility] Last Admin: 02/27/19 09:42 Dose: 75 mg Dextrose (Dextrose 50% Inj) 0 ml IV STAT PRN; Protocol PRN Reason: Hypoglycemia Protocol Dextrose (Glutose 15) 0 gm PO ONCE PRN; Protocol PRN Reason: Hypoglycemia Protocol Duloxetine HCl (Cymbalta) 60 mg PO DAILY [facility] Last Admin: 02/27/19 09:41 Dose: 60 mg Famotidine (Pepcid) 40 mg PO DAILY [facility] Last Admin: 02/27/19 09:41 Dose: 40 mg Furosemide (Lasix) 20 mg PO BID [facility] Last Admin: 02/27/19 17:39 Dose: 20 mg Gabapentin (Neurontin) 100 mg PO BID [facility] Last Admin: 02/27/19 17:39 Dose: 100 mg Glucagon (Glucagen Diagnostic Kit) 0 mg IM STAT PRN; Protocol PRN Reason: Hypoglycemia Protocol Heparin Sodium (Porcine) (Heparin) 5,000 units SC Q8 [facility] Last Admin: 02/27/19 21:37 Dose: 5,000 units Dextrose (Dextrose 5% In Water 1000 Ml) 1,000 mls @ 0 mls/hr IV .Q0M PRN; Protocol PRN Reason: Hypoglycemia Protocol Vancomycin/Sodium Chloride (Vancomycin 1 Gm/Ns 200 Ml) 1 gm in 200 mls @ 133 mls/hr IVPB Q12H [facility]; Protocol Stop: 03/04/19 07:01 Last Admin: 02/27/19 18:43 Dose: 133 mls/hr Insulin Human Regular (Novolin R) 0 unit SC ACHS [facility]; Protocol Last Admin: 02/27/19 21:38 Dose: Not Given Losartan Potassium (Cozaar) 25 mg PO DAILY [facility] Last Admin: 02/27/19 09:42 Dose: 25 mg Metoprolol Succinate (Toprol Xl) 25 mg PO DAILY [facility] Last Admin: 02/27/19 14:30 Dose: 25 mg Oxycodone/Acetaminophen (Percocet 5/325 Mg Tab) 1 tab PO Q6H PRN PRN Reason: Pain, severe (8-10) Stop: 03/02/19 17:17 Pneumococcal Polyvalent Vaccine (Pneumovax 23 Vaccine) 0.5 ml IM .ONCE ONE Stop: 02/28/19 10:01 Potassium Chloride (Klor-Con 10) 10 meq PO DAILY [facility] Last Admin: 02/27/19 09:41 Dose: 10 meq Rosuvastatin Calcium (Crestor) 10 mg PO HS [facility] Last Admin: 02/27/19 21:36 Dose: 10 mg Saccharomyces Boulardii (Florastor) 250 mg PO DAILY [facility] Last Admin: 02/27/19 09:41 Dose: 250 mg Physical Exam - Constitutional Appears: Non-toxic, No Acute Distress, Chronically Ill - Head Exam Head Exam: ATRAUMATIC, NORMAL INSPECTION, NORMOCEPHALIC - Eye Exam Eye Exam: EOMI, Normal appearance, PERRL Pupil Exam: NORMAL ACCOMODATION, PERRL - ENT Exam ENT Exam: Mucous Membranes Moist, Normal Exam - Neck Exam Neck exam: Positive for: Normal Inspection - Respiratory Exam Respiratory Exam: Clear to Auscultation Bilateral, NORMAL BREATHING PATTERN - Cardiovascular Exam Cardiovascular Exam: REGULAR RHYTHM - GI/Abdominal Exam GI & Abdominal Exam: Normal Bowel Sounds, Soft. absent: Tenderness - Rectal Exam Rectal Exam: Deferred - Exam Exam: NORMAL INSPECTION - Extremities Exam Extremities exam: Positive for: calf tenderness, pedal edema, tenderness, pedal pulses present. Negative for: normal capillary refill - Back Exam Back exam: absent: CVA tenderness (L), CVA tenderness (R), paraspinal tenderness - Neurological Exam Neurological exam: Alert, CN II-XII Intact, Normal Gait, Oriented x3, Reflexes Normal - Psychiatric Exam Psychiatric exam: Normal Affect, Normal Mood - Skin Skin Exam: Dry, Erythema, Intact, Warm Results - Vital Signs Recent Vital Signs: Last Vital Signs Temp 98.9 F 02/27/19 15:59 Pulse 92 H 02/27/19 15:59 Resp 20 02/27/19 15:59 BP 110/66 02/27/19 17:39 Pulse Ox 95 02/27/19 20:00 - Labs Result Diagrams: 02/28/19 06:49 02/28/19 06:49 Labs: Laboratory Results - last 24 hr 02/26/19 02/27/19 02/27/19 22:59 07:21 07:24 WBC 7.9 RBC 4.25 L Hgb 10.4 L Hct 31.4 L MCV 73.9 L MCH 24.4 L MCHC 33.0 RDW 18.0 H Plt Count 184 MPV 8.4 Neut % (Auto) 70.2 Lymph % (Auto) 13.4 L Candler % (Auto) 15.8 H Eos % (Auto) 0.1 Baso % (Auto) 0.5 Neut # (Auto) 5.6 Lymph # (Auto) 1.1 Candler # (Auto) 1.3 H Eos # (Auto) 0.0 Baso # (Auto) 0.0 Sodium Potassium Chloride Carbon Dioxide Anion Gap BUN Creatinine Est GFR ( Amer) Est GFR (Non-Af Amer) POC Glucose (mg/dL) 99 Random Glucose Hemoglobin A1c Calcium Phosphorus Magnesium Total Bilirubin AST ALT Alkaline Phosphatase Total Protein Albumin Globulin Albumin/Globulin Ratio Triglycerides Cholesterol LDL Cholesterol Direct HDL Cholesterol Urine Color Colorless Urine Clarity Clear Urine pH 6.0 Ur Specific Randolph 1.002 L Urine Protein Negative Urine Glucose (UA) 3+ H Urine Ketones Negative Urine Blood Negative Urine Nitrate Negative Urine Bilirubin Negative Urine Urobilinogen Normal Ur Leukocyte Esterase Neg Urine WBC (Auto) < 1 Urine RBC (Auto) < 1 Ur Squamous Epith Cells < 1 02/27/19 02/27/19 02/27/19 07:24 07:24 11:13 WBC RBC Hgb Hct MCV MCH MCHC RDW Plt Count MPV Neut % (Auto) Lymph % (Auto) Candler % (Auto) Eos % (Auto) Baso % (Auto) Neut # (Auto) Lymph # (Auto) Candler # (Auto) Eos # (Auto) Baso # (Auto) Sodium 133 Potassium 3.8 Chloride 96 L Carbon Dioxide 26 Anion Gap 15 BUN 20 Creatinine 1.0 Est GFR ( Amer) > 60 Est GFR (Non-Af Amer) > 60 POC Glucose (mg/dL) 115 H Random Glucose 103 Hemoglobin A1c 6.9 H Calcium 8.8 Phosphorus 2.9 Magnesium 2.1 Total Bilirubin 0.9 AST 44 ALT 28 Alkaline Phosphatase 92 Total Protein 7.2 Albumin 3.5 Globulin 3.8 Albumin/Globulin Ratio 0.9 L Triglycerides 170 H D Cholesterol 163 LDL Cholesterol Direct 100 HDL Cholesterol 36 Urine Color Urine Clarity Urine pH Ur Specific Randolph Urine Protein Urine Glucose (UA) Urine Ketones Urine Blood Urine Nitrate Urine Bilirubin Urine Urobilinogen Ur Leukocyte Esterase Urine WBC (Auto) Urine RBC (Auto) Ur Squamous Epith Cells 02/27/19 02/27/19 16:12 21:22 WBC RBC Hgb Hct MCV MCH MCHC RDW Plt Count MPV Neut % (Auto) Lymph % (Auto) Candler % (Auto) Eos % (Auto) Baso % (Auto) Neut # (Auto) Lymph # (Auto) Candler # (Auto) Eos # (Auto) Baso # (Auto) Sodium Potassium Chloride Carbon Dioxide Anion Gap BUN Creatinine Est GFR ( Amer) Est GFR (Non-Af Amer) POC Glucose (mg/dL) 135 H 159 H Random Glucose Hemoglobin A1c Calcium Phosphorus Magnesium Total Bilirubin AST ALT Alkaline Phosphatase Total Protein Albumin Globulin Albumin/Globulin Ratio Triglycerides Cholesterol LDL Cholesterol Direct HDL Cholesterol Urine Color Urine Clarity Urine pH Ur Specific Randolph Urine Protein Urine Glucose (UA) Urine Ketones Urine Blood Urine Nitrate Urine Bilirubin Urine Urobilinogen Ur Leukocyte Esterase Urine WBC (Auto) Urine RBC (Auto) Ur Squamous Epith Cells Assessment & Plan (1) Cellulitis Status: Acute - Assessment and Plan (Free Text) Assessment: CAD with CABG 2003, stent 2010 and 2 drug eluting stents in November 2018, DM2, PVD, Hyperlipidemia, angina, HTN, gastritis, asthma, GASTON (uses a CPAP machine at home) 59 yo male with complex history is admitted with sepsis and severe cellulitis LLE had recent admission nov 2018 for ACS requiring stents cont empiric IV antibiotics consider formal vasciular eval await cultures Vancoi IV for JOHNSON-MRSA
--- NOTE | 2019-02-28 21:20 | CP.PCM.CON ---
History of Present Illness - History of Present Illness History of Present Illness: discussed on rounds richmond Raines empiric rx in progress Bea colonized with health care associated organisms agree with antibiotic coverage as ordered will follow with you Past Patient History - Infectious Disease Hx of Infectious Diseases: None - Past Medical History & Family History Past Medical History?: Yes - Past Social History Smoking Status: Never Smoked - CARDIAC Hx Hypercholesterolemia: Yes Hx Hypertension: Yes - PULMONARY Hx Pneumonia: Yes - NEUROLOGICAL Hx Neurological Disorder: No - HEENT Hx HEENT Problems: No - RENAL Hx Chronic Kidney Disease: No - ENDOCRINE/METABOLIC Hx Endocrine Disorders: Yes Hx Diabetes Mellitus Type 2: Yes - HEMATOLOGICAL/ONCOLOGICAL Hx Anemia: Yes - INTEGUMENTARY Hx Dermatological Problems: No - MUSCULOSKELETAL/RHEUMATOLOGICAL Hx Musculoskeletal Disorders: No Hx Falls: No - GASTROINTESTINAL Hx Gall Bladder Disease: Yes Hx Gastritis: Yes - GENITOURINARY/GYNECOLOGICAL Hx Genitourinary Disorders: No - PSYCHIATRIC Hx Depression: Yes Hx Substance Use: No - SURGICAL HISTORY Hx Coronary Artery Bypass Graft: Yes (2003) Hx Coronary Stent: Yes (2010) - ANESTHESIA Hx Anesthesia: Yes Hx Anesthesia Reactions: No Hx Malignant Hyperthermia: No Meds Allergies/Adverse Reactions: Allergies Allergy/AdvReac Type Severity Reaction Status Date / Time No Known Allergies Allergy Verified 02/26/19 14:42 - Medications Medications: Current Medications Acetaminophen (Tylenol 325mg Tab) 650 mg PO Q6 PRN PRN Reason: Fever >100.4 F Albuterol/Ipratropium (Duoneb 3 Mg/0.5 Mg (3 Ml) Ud) 2 ml IH RQ6 PRN PRN Reason: Shortness of Breath Arformoterol Tartrate (Brovana) 15 mcg INH RQ12@1000,2200 [facility] Aspirin (Ecotrin) 81 mg PO DAILY [facility] Budesonide (Pulmicort Respules) 0.5 mg INH RQ12 [facility] Clopidogrel Bisulfate (Plavix) 75 mg PO DAILY [facility] Dextrose (Dextrose 50% Inj) 0 ml IV STAT PRN; Protocol PRN Reason: Hypoglycemia Protocol Dextrose (Glutose 15) 0 gm PO ONCE PRN; Protocol PRN Reason: Hypoglycemia Protocol Duloxetine HCl (Cymbalta) 60 mg PO DAILY [facility] Famotidine (Pepcid) 40 mg PO DAILY [facility] Furosemide (Lasix) 20 mg PO BID [facility] Last Admin: 02/26/19 18:00 Dose: 20 mg Furosemide (Lasix) 40 mg IVP ONCE ONE Stop: 02/26/19 22:01 Last Admin: 02/26/19 21:11 Dose: 40 mg Gabapentin (Neurontin) 100 mg PO BID [facility] Last Admin: 02/26/19 18:00 Dose: 100 mg Glucagon (Glucagen Diagnostic Kit) 0 mg IM STAT PRN; Protocol PRN Reason: Hypoglycemia Protocol Heparin Sodium (Porcine) (Heparin) 5,000 units SC Q8 [facility] Last Admin: 02/26/19 21:11 Dose: 5,000 units Dextrose (Dextrose 5% In Water 1000 Ml) 1,000 mls @ 0 mls/hr IV .Q0M PRN; Protocol PRN Reason: Hypoglycemia Protocol Vancomycin/Sodium Chloride (Vancomycin 1 Gm/Ns 200 Ml) 1 gm in 200 mls @ 133 mls/hr IVPB Q24H [facility]; Protocol Stop: 03/03/19 19:01 Last Admin: 02/26/19 19:00 Dose: 133 mls/hr Insulin Human Regular (Novolin R) 0 unit SC ACHS [facility]; Protocol Last Admin: 02/26/19 21:19 Dose: Not Given Losartan Potassium (Cozaar) 25 mg PO DAILY [facility] Metoprolol Succinate (Toprol Xl) 12.5 mg PO DAILY [facility] Pneumococcal Polyvalent Vaccine (Pneumovax 23 Vaccine) 0.5 ml IM .ONCE ONE Stop: 02/28/19 10:01 Potassium Chloride (Klor-Con 10) 10 meq PO DAILY [facility] Rosuvastatin Calcium (Crestor) 10 mg PO HS [facility] Last Admin: 02/26/19 21:12 Dose: 10 mg Saccharomyces Boulardii (Florastor) 250 mg PO DAILY [facility] Results - Vital Signs Recent Vital Signs: Last Vital Signs Temp 97.9 F 02/26/19 18:37 Pulse 100 H 02/26/19 18:37 Resp 20 02/26/19 18:37 BP 133/73 02/26/19 21:11 Pulse Ox 99 02/26/19 18:37 - Labs Result Diagrams: 02/26/19 16:40 02/26/19 16:40 Labs: Laboratory Results - last 24 hr 02/26/19 02/26/19 02/26/19 16:40 16:40 16:40 WBC 7.6 RBC 4.34 L Hgb 10.5 L Hct 32.6 L MCV 75.0 L D MCH 24.1 L MCHC 32.1 L RDW 18.1 H Plt Count 169 MPV 8.0 Neut % (Auto) 69.7 Lymph % (Auto) 13.2 L Payne % (Auto) 16.4 H Eos % (Auto) 0.3 Baso % (Auto) 0.4 Neut # (Auto) 5.3 Lymph # (Auto) 1.0 Payne # (Auto) 1.3 H Eos # (Auto) 0.0 Baso # (Auto) 0.0 pO2 VBG pH VBG pCO2 VBG HCO3 VBG Total CO2 VBG O2 Sat (Calc) VBG Base Excess VBG Potassium Glucose Lactate Sodium 134 Potassium 4.1 Chloride 100 Carbon Dioxide 21 L Anion Gap 16 BUN 19 Creatinine 0.8 Est GFR ( Amer) > 60 Est GFR (Non-Af Amer) > 60 POC Glucose (mg/dL) Random Glucose 126 H D Calcium 8.6 Total Bilirubin 0.9 AST 53 ALT 22 Alkaline Phosphatase 112 Total Creatine Kinase 57 CK-MB (Mass) 1.38 Troponin I 0.0560 Total Protein 7.3 Albumin 3.8 Globulin 3.5 Albumin/Globulin Ratio 1.1 Venous Blood Potassium 02/26/19 02/26/19 16:44 21:11 WBC RBC Hgb Hct MCV MCH MCHC RDW Plt Count MPV Neut % (Auto) Lymph % (Auto) Payne % (Auto) Eos % (Auto) Baso % (Auto) Neut # (Auto) Lymph # (Auto) Payne # (Auto) Eos # (Auto) Baso # (Auto) pO2 62 H VBG pH 7.44 H VBG pCO2 33 L VBG HCO3 23.9 VBG Total CO2 23.4 VBG O2 Sat (Calc) 94.1 H VBG Base Excess -1.1 L VBG Potassium 3.5 L Glucose 126 H Lactate 2.2 H Sodium 135.0 Potassium Chloride 105.0 Carbon Dioxide Anion Gap BUN Creatinine Est GFR ( Amer) Est GFR (Non-Af Amer) POC Glucose (mg/dL) 140 H Random Glucose Calcium Total Bilirubin AST ALT Alkaline Phosphatase Total Creatine Kinase CK-MB (Mass) Troponin I Total Protein Albumin Globulin Albumin/Globulin Ratio Venous Blood Potassium 3.5 L
[2019-02-28] MEDS: cefTRIAXone IV 1 gm in Dextros 1 GM in Dextrose 5% In Water 50 ML IVPB SCH (22:00)
[2019-03-01] MEDS: Vancomycin 1 gm/NS 200 ml 1 GM/200 ML BAG IVPB SCH ×2 (06:00→18:35)
--- NOTE | 2019-03-01 07:29 | CP.PCM.DIS ---
<Rickie Chowdhury - Last Filed: 03/01/19 15:05> Provider - Provider Date of Admission: 02/26/19 17:04 Attending physician: Erica Stevenson DO Consults: 02/26/19 18:08 Infectious Disease Consult Routine Comment: Consulting Provider: Mendoza Ridley Consulting Physician: Mendoza Ridley Reason for Consult: left LE cellulitis Time Spent in preparation of Discharge (in minutes): 45 Hospital Course - Lab Results Lab Results: Micro Results 02/26/19 20:16 Blood Blood Culture - Preliminary NO GROWTH AFTER 48 HOURS 02/26/19 16:30 Blood Blood Culture - Preliminary NO GROWTH AFTER 48 HOURS 02/27/19 00:13 Urine Random Urine Culture - Final 10-50,000 CFU/ML. MULTIPLE SPECIES. PROBABLE CONTAMINATION. Most Recent Lab Values WBC 6.8 K/uL (4.8-10.8) 02/28/19 06:49 RBC 4.18 Mil/uL (4.40-5.90) L 02/28/19 06:49 Hgb 10.2 g/dL (12.0-18.0) L 02/28/19 06:49 Hct 31.0 % (35.0-51.0) L 02/28/19 06:49 MCV 74.2 fL (80.0-94.0) L 02/28/19 06:49 MCH 24.5 pg (27.0-31.0) L 02/28/19 06:49 MCHC 33.0 g/dL (33.0-37.0) 02/28/19 06:49 RDW 18.2 % (11.5-14.5) H 02/28/19 06:49 Plt Count 183 K/uL (130-400) 02/28/19 06:49 MPV 8.9 fL (7.2-11.7) 02/28/19 06:49 Neut % (Auto) 62.5 % (50.0-75.0) 02/28/19 06:49 Lymph % (Auto) 19.5 % (20.0-40.0) L 02/28/19 06:49 Gregory % (Auto) 17.1 % (0.0-10.0) H 02/28/19 06:49 Eos % (Auto) 0.5 % (0.0-4.0) 02/28/19 06:49 Baso % (Auto) 0.4 % (0.0-2.0) 02/28/19 06:49 Neut # (Auto) 4.2 K/uL (1.8-7.0) 02/28/19 06:49 Lymph # (Auto) 1.3 K/uL (1.0-4.3) 02/28/19 06:49 Gregory # (Auto) 1.2 K/uL (0.0-0.8) H 02/28/19 06:49 Eos # (Auto) 0.0 K/uL (0.0-0.7) 02/28/19 06:49 Baso # (Auto) 0.0 K/uL (0.0-0.2) 02/28/19 06:49 pO2 62 mm/Hg (30-55) H 02/26/19 16:44 VBG pH 7.44 (7.32-7.43) H 02/26/19 16:44 VBG pCO2 33 mmHg (40-60) L 02/26/19 16:44 VBG HCO3 23.9 mmol/L 02/26/19 16:44 VBG Total CO2 23.4 mmol/L (22-28) 02/26/19 16:44 VBG O2 Sat (Calc) 94.1 % (40-65) H 02/26/19 16:44 VBG Base Excess -1.1 mmol/L (0.0-2.0) L 02/26/19 16:44 VBG Potassium 3.5 mmol/L (3.6-5.2) L 02/26/19 16:44 Sodium 135.0 mmol/l (132-148) 02/26/19 16:44 Chloride 105.0 mmol/L (98-107) 02/26/19 16:44 Glucose 126 mg/dl (75-110) H 02/26/19 16:44 Lactate 2.2 mmol/L (0.7-2.1) H 02/26/19 16:44 Sodium 132 mmol/L (132-148) 02/28/19 06:49 Potassium 3.6 mmol/L (3.6-5.2) 02/28/19 06:49 Chloride 97 mmol/L (98-107) L 02/28/19 06:49 Carbon Dioxide 26 mmol/L (22-30) 02/28/19 06:49 Anion Gap 13 (10-20) 02/28/19 06:49 BUN 22 mg/dL (9-20) H 02/28/19 06:49 Creatinine 0.8 mg/dL (0.8-1.5) 02/28/19 06:49 Est GFR ( Amer) > 60 02/28/19 06:49 Est GFR (Non-Af Amer) > 60 02/28/19 06:49 POC Glucose (mg/dL) 182 mg/dL (65-110) H 02/28/19 21:10 Random Glucose 87 mg/dL (75-110) 02/28/19 06:49 Hemoglobin A1c 6.9 % (4.2-6.5) H 02/27/19 07:24 Calcium 8.6 mg/dl (8.6-10.4) 02/28/19 06:49 Phosphorus 3.3 mg/dL (2.5-4.5) 02/28/19 06:49 Magnesium 2.2 mg/dL (1.6-2.3) 02/28/19 06:49 Total Bilirubin 0.8 mg/dL (0.2-1.3) 02/28/19 06:49 AST 52 U/L (17-59) 02/28/19 06:49 ALT 23 U/L (21-72) 02/28/19 06:49 Alkaline Phosphatase 85 U/L (38-126) 02/28/19 06:49 Total Creatine Kinase 57 U/L (55-170) 02/26/19 16:40 CK-MB (Mass) 1.38 ng/mL (0.0-3.38) 02/26/19 16:40 Troponin I 0.0560 ng/mL (0.00-0.120) 02/26/19 16:40 Total Protein 6.5 g/dL (6.3-8.3) 02/28/19 06:49 Albumin 3.3 g/dL (3.5-5.0) L 02/28/19 06:49 Globulin 3.3 gm/dL (2.2-3.9) 02/28/19 06:49 Albumin/Globulin Ratio 1.0 (1.0-2.1) 02/28/19 06:49 Triglycerides 170 mg/dL (0-149) H D 02/27/19 07:24 Cholesterol 163 mg/dL (0-199) 02/27/19 07:24 LDL Cholesterol Direct 100 mg/dL (0-129) 02/27/19 07:24 HDL Cholesterol 36 mg/dL (30-70) 02/27/19 07:24 Procalcitonin 0.05 NG/ML (0.19-0.49) L 02/28/19 19:05 Venous Blood Potassium 3.5 mmol/L (3.6-5.2) L 02/26/19 16:44 Urine Color Colorless (YELLOW) 02/26/19 22:59 Urine Clarity Clear (Clear) 02/26/19 22:59 Urine pH 6.0 (5.0-8.0) 02/26/19 22:59 Ur Specific Duarte 1.002 (1.003-1.030) L 02/26/19 22:59 Urine Protein Negative mg/dL (NEGATIVE) 02/26/19 22:59 Urine Glucose (UA) 3+ mg/dL (Normal) H 02/26/19 22:59 Urine Ketones Negative mg/dL (NEGATIVE) 02/26/19 22:59 Urine Blood Negative (NEGATIVE) 02/26/19 22:59 Urine Nitrate Negative (NEGATIVE) 02/26/19 22:59 Urine Bilirubin Negative (NEGATIVE) 02/26/19 22:59 Urine Urobilinogen Normal mg/dL (0.2-1.0) 02/26/19 22:59 Ur Leukocyte Esterase Neg Kelly/uL (Negative) 02/26/19 22:59 Urine WBC (Auto) < 1 /hpf (0-5) 02/26/19 22:59 Urine RBC (Auto) < 1 /hpf (0-3) 02/26/19 22:59 Ur Squamous Epith Cells < 1 /hpf (0-5) 02/26/19 22:59 Vancomycin Trough 15.8 ug/mL (5.0-10.0) H 02/28/19 06:07 - Hospital Course Hospital Course: HPI 59 year old male with past medical history of CAD with CABG 2003, stent 2010 and 2 drug eluting stents in November 2018, DM2, PVD, Hyperlipidemia, angina, HTN, gastritis, asthma, GASTON presents to the ER for left lower extremity pain. Patient states he showed a picture of his leg to his PMD who told him to come to the ER on Tuesday, but the patient stated the pain was worse today. He states he noticed his leg to red and swollen about one week ago. The pain is constantly throbbing and an 8/10 pain. He has not been taking any pain medications or antibiotics for the leg. He denies any trauma to the leg. Patient denies fever, chills, nausea, vomiting, diarrhea or constipation. He states he has been compliant with all of his home medications. Hospital Course Patient was hospitalized and treated for left lower extremity cellulitis. Patient was seen by ID, Dr. Ridley, and patient started on IV antibiotics. Cellulitis showed daily interval improvements with IV antibiotics. Vascular surgery was consulted, Dr. Sepulveda. Patient also went for arterial dopplers which were reviewed by vascular surgery. Per vascular, no surgical intervention would be indicated for this patient. Patient also with hx CHF, and was restarted on home meds without any complications. Patient discharged to [facility] with 1 week IV Vancomycin per Dr. Ridley Imaging CXR 02/28: Persistent confluent hazy opacification of the left mid to lower lung zone which may represent underlying infiltrate versus atelectasis. Correlation with chest CT may be helpful if clinically indicated. Surgical clips in the left hilar region and hemithorax. Status post median sternotomy. CXR 02/26: Hazy left lower lobe infiltrate. Cardiomegaly. Median sternotomy wires with evidence of CABG. Ankle XR 02/26: Soft tissue swelling. Vascular clips. No acute displaced fracture or dislocation identified. LE dopplers 02/26: No evidence of deep or superficial vein thrombosis of the left lower extremity with excellent venous flow. Normal valve function noted of the left side. Normal venous flow noted in the right common femoral vein. Discharge Exam - Head Exam Head Exam: ATRAUMATIC, NORMAL INSPECTION, NORMOCEPHALIC - Eye Exam Eye Exam: EOMI, Normal appearance Pupil Exam: PERRL - Respiratory Exam Respiratory Exam: absent: Rales, Rhonchi, Wheezes - Cardiovascular Exam Cardiovascular Exam: REGULAR RHYTHM, +S1, +S2 - GI/Abdominal Exam GI & Abdominal Exam: Normal Bowel Sounds, Soft - Extremities Exam Extremities exam: tenderness (improving cellulitis LLE) - Neurological Exam Neurological exam: Alert, CN II-XII Intact, Oriented x3 - Psychiatric Exam Psychiatric exam: Normal Affect, Normal Mood - Skin Skin Exam: Dry, Intact Discharge Plan - Discharge Medications Prescriptions: Vancomycin 1 GM [Vancomycin 1GM in Normal Saline Addvantage] 1 gm IVPB DAILY 7 Days #14 bag - Follow Up Plan Condition: STABLE Disposition: HOME/ ROUTINE Instructions: Vancomycin, Cellulitis (DC) Additional Instructions: Patient is cleared for discharge per primary team. Please continue to take all home medications as prescribed. In addition, you have been provided a prescription for the following antibiotic: -Vancomycin 1gm IV every 12 hours (to be administered at subacute rehab) Monitor creatinine,follow your primary care physician Please follow up with your primary care physician within 7-10 days of discharge. Please return to ED if symptoms recur or worsen. <Victoriano Randall - Last Filed: 03/01/19 19:13> Provider - Provider Date of Admission: 02/26/19 17:04 Attending physician: Erica Stevenson DO Consults: 02/26/19 18:08 Infectious Disease Consult Routine Comment: Consulting Provider: Mendoza Ridley Consulting Physician: Mendoza Ridley Reason for Consult: left LE cellulitis 03/01/19 10:38 Vascular Surgery Routine Comment: Consulting Provider: Yared Sepulveda Jr. Physician Instructions: Reason For Exam: LLE cellulits, DM neuropathy Hospital Course - Lab Results Lab Results: Micro Results 02/26/19 20:16 Blood Blood Culture - Preliminary NO GROWTH AFTER 48 HOURS 02/26/19 16:30 Blood Blood Culture - Preliminary NO GROWTH AFTER 48 HOURS 02/27/19 00:13 Urine Random Urine Culture - Final 10-50,000 CFU/ML. MULTIPLE SPECIES. PROBABLE CONTAMINATION. Most Recent Lab Values WBC 6.8 K/uL (4.8-10.8) 03/01/19 07:09 RBC 4.10 Mil/uL (4.40-5.90) L 03/01/19 07:09 Hgb 10.1 g/dL (12.0-18.0) L 03/01/19 07:09 Hct 30.6 % (35.0-51.0) L 03/01/19 07:09 MCV 74.6 fL (80.0-94.0) L 03/01/19 07:09 MCH 24.5 pg (27.0-31.0) L 03/01/19 07:09 MCHC 32.9 g/dL (33.0-37.0) L 03/01/19 07:09 RDW 17.8 % (11.5-14.5) H 03/01/19 07:09 Plt Count 180 K/uL (130-400) 03/01/19 07:09 MPV 8.6 fL (7.2-11.7) 03/01/19 07:09 Neut % (Auto) 67.8 % (50.0-75.0) 03/01/19 07:09 Lymph % (Auto) 17.3 % (20.0-40.0) L 03/01/19 07:09 Gregory % (Auto) 14.0 % (0.0-10.0) H 03/01/19 07:09 Eos % (Auto) 0.6 % (0.0-4.0) 03/01/19 07:09 Baso % (Auto) 0.3 % (0.0-2.0) 03/01/19 07:09 Neut # (Auto) 4.6 K/uL (1.8-7.0) 03/01/19 07:09 Lymph # (Auto) 1.2 K/uL (1.0-4.3) 03/01/19 07:09 Gregory # (Auto) 1.0 K/uL (0.0-0.8) H 03/01/19 07:09 Eos # (Auto) 0.0 K/uL (0.0-0.7) 03/01/19 07:09 Baso # (Auto) 0.0 K/uL (0.0-0.2) 03/01/19 07:09 pO2 62 mm/Hg (30-55) H 02/26/19 16:44 VBG pH 7.44 (7.32-7.43) H 02/26/19 16:44 VBG pCO2 33 mmHg (40-60) L 02/26/19 16:44 VBG HCO3 23.9 mmol/L 02/26/19 16:44 VBG Total CO2 23.4 mmol/L (22-28) 02/26/19 16:44 VBG O2 Sat (Calc) 94.1 % (40-65) H 02/26/19 16:44 VBG Base Excess -1.1 mmol/L (0.0-2.0) L 02/26/19 16:44 VBG Potassium 3.5 mmol/L (3.6-5.2) L 02/26/19 16:44 Sodium 135.0 mmol/l (132-148) 02/26/19 16:44 Chloride 105.0 mmol/L (98-107) 02/26/19 16:44 Glucose 126 mg/dl (75-110) H 02/26/19 16:44 Lactate 2.2 mmol/L (0.7-2.1) H 02/26/19 16:44 Sodium 133 mmol/L (132-148) 03/01/19 07:09 Potassium 4.0 mmol/L (3.6-5.2) 03/01/19 07:09 Chloride 101 mmol/L (98-107) 03/01/19 07:09 Carbon Dioxide 24 mmol/L (22-30) 03/01/19 07:09 Anion Gap 11 (10-20) 03/01/19 07:09 BUN 21 mg/dL (9-20) H 03/01/19 07:09 Creatinine 0.8 mg/dL (0.8-1.5) 03/01/19 07:09 Est GFR ( Amer) > 60 03/01/19 07:09 Est GFR (Non-Af Amer) > 60 03/01/19 07:09 POC Glucose (mg/dL) 182 mg/dL (65-110) H 03/01/19 16:24 Random Glucose 101 mg/dL (75-110) 03/01/19 07:09 Hemoglobin A1c 6.9 % (4.2-6.5) H 02/27/19 07:24 Lactic Acid 0.7 mmol/L (0.7-2.1) 03/01/19 07:09 Calcium 8.5 mg/dl (8.6-10.4) L 03/01/19 07:09 Phosphorus 2.9 mg/dL (2.5-4.5) 03/01/19 07:09 Magnesium 2.3 mg/dL (1.6-2.3) 03/01/19 07:09 Total Bilirubin 0.6 mg/dL (0.2-1.3) 03/01/19 07:09 AST 37 U/L (17-59) 03/01/19 07:09 ALT 28 U/L (21-72) 03/01/19 07:09 Alkaline Phosphatase 84 U/L (38-126) 03/01/19 07:09 Total Creatine Kinase 57 U/L (55-170) 02/26/19 16:40 CK-MB (Mass) 1.38 ng/mL (0.0-3.38) 02/26/19 16:40 Troponin I 0.0560 ng/mL (0.00-0.120) 02/26/19 16:40 Total Protein 6.4 g/dL (6.3-8.3) 03/01/19 07:09 Albumin 3.0 g/dL (3.5-5.0) L 03/01/19 07:09 Globulin 3.4 gm/dL (2.2-3.9) 03/01/19 07:09 Albumin/Globulin Ratio 0.9 (1.0-2.1) L 03/01/19 07:09 Triglycerides 170 mg/dL (0-149) H D 02/27/19 07:24 Cholesterol 163 mg/dL (0-199) 02/27/19 07:24 LDL Cholesterol Direct 100 mg/dL (0-129) 02/27/19 07:24 HDL Cholesterol 36 mg/dL (30-70) 02/27/19 07:24 Procalcitonin 0.05 NG/ML (0.19-0.49) L 02/28/19 19:05 Venous Blood Potassium 3.5 mmol/L (3.6-5.2) L 02/26/19 16:44 Urine Color Colorless (YELLOW) 02/26/19 22:59 Urine Clarity Clear (Clear) 02/26/19 22:59 Urine pH 6.0 (5.0-8.0) 02/26/19 22:59 Ur Specific Duarte 1.002 (1.003-1.030) L 02/26/19 22:59 Urine Protein Negative mg/dL (NEGATIVE) 02/26/19 22:59 Urine Glucose (UA) 3+ mg/dL (Normal) H 02/26/19 22:59 Urine Ketones Negative mg/dL (NEGATIVE) 02/26/19 22:59 Urine Blood Negative (NEGATIVE) 02/26/19 22:59 Urine Nitrate Negative (NEGATIVE) 02/26/19 22:59 Urine Bilirubin Negative (NEGATIVE) 02/26/19 22:59 Urine Urobilinogen Normal mg/dL (0.2-1.0) 02/26/19 22:59 Ur Leukocyte Esterase Neg Kelly/uL (Negative) 02/26/19 22:59 Urine WBC (Auto) < 1 /hpf (0-5) 02/26/19 22:59 Urine RBC (Auto) < 1 /hpf (0-3) 02/26/19 22:59 Ur Squamous Epith Cells < 1 /hpf (0-5) 02/26/19 22:59 Vancomycin Trough 15.8 ug/mL (5.0-10.0) H 02/28/19 06:07 Attending/Attestation - Attestation I have personally seen and examined this patient.: Yes I have fully participated in the care of the patient.: Yes I have reviewed all pertinent clinical information, including history, physical exam and plan: Yes Notes (Text): Patient was seen and examined this morning. shows significant improvement. no surgical intervention as per surgery d/c on vanco to rehab as recommended by ID 03/01/19 19:12
[2019-03-01 07:33] LABS: BASO % 0.3 % (0.0-2.0); EOS % 0.6 % (0.0-4.0); HEMOGLOBIN 10.1 g/dL (12.0-18.0); LYMPH # 1.2 K/uL (1.0-4.3); LYMPH % 17.3 % (20.0-40.0); MEAN CELL VOLUME 74.6 fL (80.0-94.0); MEAN CORPUSCULAR HEMOGLOBIN 24.5 pg (27.0-31.0); MEAN CORPUSCULAR HGB CONC 32.9 g/dL (33.0-37.0); MEAN PLATELET VOLUME 8.6 fL (7.2-11.7); NEUT # 4.6 K/uL (1.8-7.0); NEUT % 67.8 % (50.0-75.0); NRBC % 0.1 % (0.0-2.0); RBC 4.1 Mil/uL (4.40-5.90); RED CELL DISTRIBUTION WIDTH 17.8 % (11.5-14.5); WHITE BLOOD COUNT 6.8 K/uL (4.8-10.8)
[2019-03-01] MEDS: (Novolin R) Insulin Human Regular 100 units/ml vial SC SCH ×4 (07:49→21:13)
[2019-03-01 07:52] VITALS: BP 126/71
[2019-03-01] MEDS: Arformoterol 15 mcg/2 ml Inh Sol INH SCH ×2 (07:59→20:39)
[2019-03-01] MEDS: Budesonide 0.5 mg/2 ml Inhal Susp UD INH SCH ×2 (08:00→20:39)
[2019-03-01 08:08] LABS: ALB/GLOB RATIO 0.9 (1.0-2.1); ALT/SGPT 28 U/L (21-72); AST/SGOT 37 U/L (17-59); BLOOD UREA NITROGEN 21 mg/dL (9-20); CALCIUM 8.5 mg/dl (8.6-10.4); GFR NON-AFRICAN AMERICAN > 60
--- NOTE | 2019-03-01 09:48 | RAD ---
Date of service: 03/01/2019 HISTORY: pneumonia vs atelectasis COMPARISON: 02/26/2019 TECHNIQUE: Chest PA and lateral FINDINGS: LUNGS: Persistent confluent hazy opacification of the left mid to lower lung zone which may represent underlying infiltrate versus atelectasis. Correlation with chest CT may be helpful if clinically indicated. Surgical clips in the left hilar region and hemithorax. Status post median sternotomy. Coronary stents and or calcifications. PLEURA: No significant pleural effusion identified. No pneumothorax apparent. CARDIOVASCULAR: Aortic atherosclerotic calcification present. Normal cardiac size. OSSEOUS STRUCTURES: No significant abnormalities. VISUALIZED UPPER ABDOMEN: Normal. OTHER FINDINGS: None. IMPRESSION: Persistent confluent hazy opacification of the left mid to lower lung zone which may represent underlying infiltrate versus atelectasis. Correlation with chest CT may be helpful if clinically indicated. Surgical clips in the left hilar region and hemithorax. Status post median sternotomy.
[2019-03-01] MEDS: Metoprolol Succinate 25 mg XL Tab PO SCH (09:50)
[2019-03-01] MEDS: Potassium Chloride 10 mEq ER Tab PO SCH (09:51)
[2019-03-01] MEDS: Saccharomyces Boulardi 250 mg Cap PO SCH (09:52)
--- NOTE | 2019-03-01 11:25 | CP.PCM.CON ---
History of Present Illness - History of Present Illness History of Present Illness: Vascular Surgery Consult Note for Dr. Sepulveda Consult: LLE cellulitis HPI: 59 year old male, DM, CAD s/p CABG, HTN, HLD, consulted for left lower extremity cellulitis with possible vascular compromise. Patient states for 1 week he n oticed redness and swelling of the left lower extremity. He came to the hospital 02/26 and receiving IV antibiotics with infectious disease on board. Symptoms improving. Duplex US did not show signs of DVT. Patient denies any claudication, f/c, n/v/d, SOB, CP, or urinary symptoms. PMH: See above PSH: CABG FH: Noncontributory SH: Denies tobacco, alcohol, drugs ALL: NKDA Meds: ASA/plavix, see MAR Review of Systems - Constitutional Constitutional: absent: Chills, Fever, Weight Loss - EENT Eyes: absent: Blurred Vision, Change in Vision Nose/Mouth/Throat: absent: Nasal Congestion, Nasal Discharge - Cardiovascular Cardiovascular: absent: Chest Pain, Dyspnea - Respiratory Respiratory: absent: Cough, Dyspnea - Gastrointestinal Gastrointestinal: absent: Abdominal Pain, Nausea, Vomiting - Genitourinary Genitourinary: absent: Difficulty Urinating, Dysuria - Musculoskeletal Musculoskeletal: absent: Back Pain, Neck Pain - Integumentary Integumentary: Erythema, Rash, Swelling - Neurological Neurological: absent: Confusion, Dizziness - Psychiatric Psychiatric: absent: Anxiety, Depression Past Patient History - Infectious Disease Hx of Infectious Diseases: None - Past Medical History & Family History Past Medical History?: Yes - Past Social History Smoking Status: Never Smoked - CARDIAC Hx Hypercholesterolemia: Yes Hx Hypertension: Yes - PULMONARY Hx Pneumonia: Yes - NEUROLOGICAL Hx Neurological Disorder: No - HEENT Hx HEENT Problems: No - RENAL Hx Chronic Kidney Disease: No - ENDOCRINE/METABOLIC Hx Endocrine Disorders: Yes Hx Diabetes Mellitus Type 2: Yes - HEMATOLOGICAL/ONCOLOGICAL Hx Anemia: Yes - INTEGUMENTARY Hx Dermatological Problems: No - MUSCULOSKELETAL/RHEUMATOLOGICAL Hx Musculoskeletal Disorders: No Hx Falls: No - GASTROINTESTINAL Hx Gall Bladder Disease: Yes Hx Gastritis: Yes - GENITOURINARY/GYNECOLOGICAL Hx Genitourinary Disorders: No - PSYCHIATRIC Hx Depression: Yes Hx Substance Use: No - SURGICAL HISTORY Hx Coronary Artery Bypass Graft: Yes (2003) Hx Coronary Stent: Yes (2010) - ANESTHESIA Hx Anesthesia: Yes Hx Anesthesia Reactions: No Hx Malignant Hyperthermia: No Meds Allergies/Adverse Reactions: Allergies Allergy/AdvReac Type Severity Reaction Status Date / Time No Known Allergies Allergy Verified 02/26/19 14:42 - Medications Medications: Current Medications Acetaminophen (Tylenol 325mg Tab) 650 mg PO Q6 PRN PRN Reason: Fever >100.4 F Acetaminophen (Tylenol 325mg Tab) 650 mg PO Q6 PRN PRN Reason: Pain, Mild (1-3) Albuterol/Ipratropium (Duoneb 3 Mg/0.5 Mg (3 Ml) Ud) 2 ml IH RQ6 PRN PRN Reason: Shortness of Breath Arformoterol Tartrate (Brovana) 15 mcg INH RQ12@1000,2200 [facility] Last Admin: 03/01/19 07:59 Dose: 15 mcg Aspirin (Ecotrin) 81 mg PO DAILY [facility] Last Admin: 03/01/19 09:50 Dose: 81 mg Budesonide (Pulmicort Respules) 0.5 mg INH RQ12 [facility] Last Admin: 03/01/19 08:00 Dose: 0.5 mg Clopidogrel Bisulfate (Plavix) 75 mg PO DAILY [facility] Last Admin: 03/01/19 09:51 Dose: 75 mg Dextrose (Dextrose 50% Inj) 0 ml IV STAT PRN; Protocol PRN Reason: Hypoglycemia Protocol Dextrose (Glutose 15) 0 gm PO ONCE PRN; Protocol PRN Reason: Hypoglycemia Protocol Duloxetine HCl (Cymbalta) 60 mg PO DAILY [facility] Last Admin: 03/01/19 09:50 Dose: 60 mg Famotidine (Pepcid) 40 mg PO DAILY [facility] Last Admin: 03/01/19 09:51 Dose: 40 mg Furosemide (Lasix) 20 mg PO BID [facility] Last Admin: 03/01/19 09:51 Dose: 20 mg Gabapentin (Neurontin) 100 mg PO BID [facility] Last Admin: 03/01/19 09:51 Dose: 100 mg Glucagon (Glucagen Diagnostic Kit) 0 mg IM STAT PRN; Protocol PRN Reason: Hypoglycemia Protocol Heparin Sodium (Porcine) (Heparin) 5,000 units SC Q8 [facility] Last Admin: 03/01/19 05:19 Dose: 5,000 units Dextrose (Dextrose 5% In Water 1000 Ml) 1,000 mls @ 0 mls/hr IV .Q0M PRN; Protocol PRN Reason: Hypoglycemia Protocol Vancomycin/Sodium Chloride (Vancomycin 1 Gm/Ns 200 Ml) 1 gm in 200 mls @ 133 mls/hr IVPB Q12H [facility]; Protocol Stop: 03/04/19 07:01 Last Admin: 03/01/19 06:00 Dose: 133 mls/hr Ceftriaxone Sodium 1 gm/ (Dextrose) 100 mls @ 50 mls/30 min IVPB Q12H [facility]; Protocol Last Admin: 02/28/19 22:00 Dose: 50 mls/30 min Insulin Human Regular (Novolin R) 0 unit SC ACHS [facility]; Protocol Last Admin: 03/01/19 07:49 Dose: Not Given Losartan Potassium (Cozaar) 25 mg PO DAILY [facility] Last Admin: 03/01/19 09:51 Dose: 25 mg Metoprolol Succinate (Toprol Xl) 25 mg PO DAILY [facility] Last Admin: 03/01/19 09:50 Dose: 25 mg Oxycodone/Acetaminophen (Percocet 5/325 Mg Tab) 1 tab PO Q6H PRN PRN Reason: Pain, severe (8-10) Stop: 03/02/19 17:17 Potassium Chloride (Klor-Con 10) 10 meq PO DAILY [facility] Last Admin: 03/01/19 09:51 Dose: 10 meq Rosuvastatin Calcium (Crestor) 10 mg PO HS [facility] Last Admin: 02/28/19 21:28 Dose: 10 mg Saccharomyces Boulardii (Florastor) 250 mg PO DAILY [facility] Last Admin: 03/01/19 09:52 Dose: 250 mg Physical Exam - Constitutional Appears: Well, Non-toxic, No Acute Distress - Head Exam Head Exam: ATRAUMATIC, NORMAL INSPECTION, NORMOCEPHALIC - Eye Exam Eye Exam: EOMI Pupil Exam: PERRL - ENT Exam ENT Exam: Mucous Membranes Moist - Respiratory Exam Respiratory Exam: NORMAL BREATHING PATTERN. absent: Wheezes, Respiratory Distress - GI/Abdominal Exam GI & Abdominal Exam: Normal Bowel Sounds, Soft. absent: Tenderness - Extremities Exam Extremities exam: Positive for: normal inspection, pedal pulses present Additional comments: palpable DP/PT pulses, dopplerable as well cap refill < 2sec left lower extremity swelling and tenderness erythema improving - Neurological Exam Neurological exam: Alert, Oriented x3 - Psychiatric Exam Psychiatric exam: Normal Affect, Normal Mood - Skin Skin Exam: Dry, Erythema, Intact, Normal Color, Warm Results - Vital Signs Recent Vital Signs: Last Vital Signs Temp 98.6 F 03/01/19 07:00 Pulse 82 03/01/19 07:00 Resp 20 03/01/19 07:00 BP 126/71 03/01/19 09:51 Pulse Ox 96 03/01/19 07:00 - Labs Result Diagrams: 03/01/19 07:09 03/01/19 07:09 Labs: Laboratory Results - last 24 hr 02/28/19 02/28/19 02/28/19 16:37 19:05 21:10 WBC RBC Hgb Hct MCV MCH MCHC RDW Plt Count MPV Neut % (Auto) Lymph % (Auto) Craig % (Auto) Eos % (Auto) Baso % (Auto) Neut # (Auto) Lymph # (Auto) Craig # (Auto) Eos # (Auto) Baso # (Auto) Sodium Potassium Chloride Carbon Dioxide Anion Gap BUN Creatinine Est GFR ( Amer) Est GFR (Non-Af Amer) POC Glucose (mg/dL) 106 182 H Random Glucose Lactic Acid Calcium Phosphorus Magnesium Total Bilirubin AST ALT Alkaline Phosphatase Total Protein Albumin Globulin Albumin/Globulin Ratio Procalcitonin 0.05 L 03/01/19 03/01/19 03/01/19 07:09 07:09 07:09 WBC 6.8 RBC 4.10 L Hgb 10.1 L Hct 30.6 L MCV 74.6 L MCH 24.5 L MCHC 32.9 L RDW 17.8 H Plt Count 180 MPV 8.6 Neut % (Auto) 67.8 Lymph % (Auto) 17.3 L Craig % (Auto) 14.0 H Eos % (Auto) 0.6 Baso % (Auto) 0.3 Neut # (Auto) 4.6 Lymph # (Auto) 1.2 Craig # (Auto) 1.0 H Eos # (Auto) 0.0 Baso # (Auto) 0.0 Sodium 133 Potassium 4.0 Chloride 101 Carbon Dioxide 24 Anion Gap 11 BUN 21 H Creatinine 0.8 Est GFR ( Amer) > 60 Est GFR (Non-Af Amer) > 60 POC Glucose (mg/dL) Random Glucose 101 Lactic Acid 0.7 Calcium 8.5 L Phosphorus 2.9 Magnesium 2.3 Total Bilirubin 0.6 AST 37 ALT 28 Alkaline Phosphatase 84 Total Protein 6.4 Albumin 3.0 L Globulin 3.4 Albumin/Globulin Ratio 0.9 L Procalcitonin 03/01/19 07:28 WBC RBC Hgb Hct MCV MCH MCHC RDW Plt Count MPV Neut % (Auto) Lymph % (Auto) Craig % (Auto) Eos % (Auto) Baso % (Auto) Neut # (Auto) Lymph # (Auto) Craig # (Auto) Eos # (Auto) Baso # (Auto) Sodium Potassium Chloride Carbon Dioxide Anion Gap BUN Creatinine Est GFR ( Amer) Est GFR (Non-Af Amer) POC Glucose (mg/dL) 111 H Random Glucose Lactic Acid Calcium Phosphorus Magnesium Total Bilirubin AST ALT Alkaline Phosphatase Total Protein Albumin Globulin Albumin/Globulin Ratio Procalcitonin Assessment & Plan - Assessment and Plan (Free Text) Assessment: 59M w/ LLE cellulitis, improving Plan: Continue Abx per ID Leg elevation Circulation intact No acute surgical intervention at this present time Discussed with Dr. Coco Marshall PGY1
[2019-03-01] MEDS: cefTRIAXone IV 1 gm in Dextros 1 GM in Dextrose 5% In Water 50 ML IVPB SCH (13:33)
[2019-03-01 18:06] VITALS: PULSE 80; TEMP 98.9; O2SAT 97
[2019-03-01] MEDS ORDERED: cefTRIAXone IV 1 gm in Dextros 50 ML IVPB SCH (21:30)
--- NOTE | 2019-03-01 21:56 | VASCLAB ---
Date of service: 03/01/2019 STUDY DESCRIPTION: Lower Extremity Arterial Exam (PVR). HISTORY: decreased pulses, swelling , hx CAD PRIORS: None. TECHNIQUE: Pulse volume recording waveforms and segmental pressures of bilateral lower extremities at multiple levels were obtained. Ankle Brachial Indices (ABIs) were calculated. Report prepared by GILDA Dukes, RVT RIGHT LOWER EXTREMITY: * Brachial artery: Pressure - 117 mmHg. * High thigh: Pressure - 220 mmHg: Ratio - NC: PVR waveform - Pulsatile * Low thigh: Pressure - 155 mmHg: Ratio - 1.32 PVR waveform: Pulsatile * Calf: Pressure - 220 mmHg: Ratio - NC PVR waveform: Pulsatile * Posterior tibial Artery: Pressure - 111 mmHg: Ratio - 0.95 PVR waveform: Pulsatile * Dorsalis pedis Artery: Pressure - 132 mmHg: Ratio - 1.13 PVR waveform: Pulsatile * Great toe: Pressure - mmHg: Ratio - PVR waveform: Ankle brachial index (MORRIS): 1.13 LEFT LOWER EXTREMITY: * Brachial artery: Pressure - 116 mmHg. * High thigh: Pressure - 220 mmHg: Ratio - NC: PVR waveform - Pulsatile * Low thigh: Pressure - 165 mmHg: Ratio - 1.41 PVR waveform: Pulsatile * Calf: Pressure - 220 mmHg: Ratio - NC PVR waveform: Pulsatile * Posterior tibial Artery: Pressure - 123 mmHg: Ratio - 1.05 PVR waveform: Pulsatile * Dorsalis pedis Artery: Pressure - 133 mmHg: Ratio - 1.14 PVR waveform: Pulsatile * Great toe: Pressure - mmHg: Ratio - PVR waveform: Ankle brachial index (MORRIS): 1.14 OTHER FINDINGS: Right: Left: IMPRESSION: Right: There was no evidence of hemodynamically significant arterial insufficiency in the right lower extremity. Left: There was no evidence of hemodynamically significant arterial insufficiency in the left lower extremity.
== END 2019-03-01 21:50 ==
LOC: C.ER 14:36 → C.3T 17:04
PROVIDERS: ADMIT Hospitalist; ATTEND Hospitalist
DX: L03.116 Cellulitis of left lower limb (principal); J18.9 Pneumonia, unspecified organism; I11.0 Hypertensive heart disease with heart failure; I50.32 Chronic diastolic (congestive) heart failure; I25.10 Atherosclerotic heart disease of native coronary artery without angina pectoris; Z95.1 Presence of aortocoronary bypass graft; G47.33 Obstructive sleep apnea (adult) (pediatric); E78.00 Pure hypercholesterolemia, unspecified; E11.51 Type 2 diabetes mellitus with diabetic peripheral angiopathy without gangrene; I70.209 Unspecified atherosclerosis of native arteries of extremities, unspecified extremity; E11.42 Type 2 diabetes mellitus with diabetic polyneuropathy
CPT/HCPCS: 36415; 71045; 71046; 73610; 80053; 80061; 80202; 81001; 82803; 82948; 83036; 83605; 83735; 83880; 84100; 84145; 84484; 85025; 87040; 87086; 93923; 93971; 94640; 94660; 94760; 96365; 97110; 97116; 97162; 97530; 99285; G0378; G8978; G8979; J0696; J1644; J1940; J3370